=== PATIENT | male | born 1960 | race Caucasian/White ===

== ENCOUNTER 2020-05-20 18:29 | Emergency (ER) | payer OTHER, SELFPAY ==
[2020-05-20 19:01] VITALS: BP 144/85; PULSE 79; RESP 18; TEMP 36.3; O2SAT 98; BMI 25.8
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
[2020-05-20] MEDS: Acetaminophen 325 MG TABLET 975 MG PO (21:52)
--- NOTE | 2020-05-20 22:06 | PC.NURSE ---
[facility] PT TX LINE CALLED @ TYRON BLACKWELL REQUEST @ [phone] JON ANSWERS, TAKES PT INFO AND ASKS TO SPEAK WITH ROSALVA BLACKWELL TAKES OVER CALL RIGHT AWAY
--- NOTE | 2020-05-20 22:14 | PC.NURSE ---
RETURN CALL FROM JON FROM [facility] PT TX LINE @ [phone] ROSALVA TAKES OVER CALL RIGHT AWAY
[2020-05-20] MEDS: 0.9 % Sodium Chloride 1,000 ML 999 ML IVCONT (22:20)
[2020-05-20] MEDS: Lidocaine HCl 2 % MPF 5 ML VIAL 10 ML SUBCUT (22:21)
[2020-05-20] MEDS: ondansetron HCL 4 MG/2 ML VIAL IVPUSH (22:21)
[2020-05-20 22:22] VITALS: RESP 18
[2020-05-20] MEDS: Morphine Sulfate 4 MG/ML CARTRIDGE IVPUSH (22:22)
[2020-05-20 23:29] VITALS: BP 139/77; PULSE 75; RESP 14; O2SAT 98
== END 2020-05-20 23:30 | disposition short-term general hospital (02) ==
PROVIDERS: Emergency Provider Emergency Medicine
DX: S02.32XA Fracture of orbital floor, left side, initial encounter for closed fracture (principal); S02.2XXA Fracture of nasal bones, initial encounter for closed fracture; Y04.2XXA Assault by strike against or bumped into by another person, initial encounter; Y93.9 Activity, unspecified; Y92.009 Unspecified place in unspecified non-institutional (private) residence as the place of occurrence of the external cause; Y99.9 Unspecified external cause status
CPT/HCPCS: 70450; 70480; 72125; 90471; 90715; 96361; 96374; 96375; 99285; 99291; J2270; J2405

== ENCOUNTER → 2020-12-08 10:27 | Outpatient (BNVA) | payer OTHER, SELFPAY | PROVIDERS: PCP Internal Medicine; Referring Provider Internal Medicine; Visit Provider Internal Medicine Cardiovascular Disease | DX: R00.2 Palpitations (principal); R55 Syncope and collapse; I25.10 Atherosclerotic heart disease of native coronary artery without angina pectoris | CPT/HCPCS: 93005; 99212 ==

== ENCOUNTER → 2020-12-17 11:16 | Outpatient (REF) | payer OTHER, SELFPAY ==
--- NOTE | 2020-12-17 11:20 | HM_ITS ---
The patient is a 60-year-old male. REASON FOR SURGERY: Syncope and collapse. REQUESTING PROVIDER: Sharan Mariscal MD. INTERPRETATION: The patient was hooked up to cardiac event monitor from 12/17/2020 to 01/16/2021 for a total period of 30 days. FINDINGS: Baseline rhythm was normal sinus rhythm with heart rate varying from 74 beats per minute to 115 beats per minute. There were no bradyarrhythmias or tachyarrhythmias noted. The patient reported 2 events of palpitation, one correlated with sinus rhythm and the other one with sinus tachycardia. CONCLUSION: Event monitor is remarkable. 1. Normal sinus rhythm with no tachy or bradyarrhythmias. 2. Symptoms reported of palpitations, correlated with sinus rhythm. Sharan Mariscal MD NRS/MODL / [id number]
--- NOTE | 2020-12-17 11:20 | CA_ITS ---
Transthoracic Echocardiogram Patient (Last, First, Middle): Inderjit Stoner A Gender: Male Date of : 1960 Age: 60 Procedure Date: 12/17/2020 Procedure Type: Transthoracic Echocardiogram Location: OP Height: 175.26 cm Weight: 89.81 kg BSA: 2.06 m2 Heart Rate: bpm BP: 110 / 78 mmHg Field Auto Appraiser: Referring MD: Sharan Mariscal MD Symptoms: R55 - Syncope and collapse Study Quality: Fair ECG Rhythm: Sinus Conclusions: - The left ventricular systolic function is normal. The visually estimated ejection fraction is between 65-70%. - No obvious valvular pathology seen on this study. Findings Left Ventricle Normal left ventricular cavity size. There is mildly increased left ventricular wall thickness. The left ventricular systolic function is normal. The visually estimated ejection fraction is between 65-70%. There is no evidence of regional wall motion abnormalities. E/E prime ratio is <8, consistent with normal filling pressures. Evidence suggests grade I (mild) diastolic dysfunction. Right Ventricle Normal right ventricular cavity size and systolic function. Atria Both atria are normal in size. Aortic Valve There is a normal trileaflet aortic valve. There is no aortic valve stenosis. There is no aortic valve regurgitation. Isolated speck of calcium in the aortic annulus. Mitral Valve The mitral valve appears normal. There is no mitral valve regurgitation. There is no mitral valve stenosis. Pulmonic Valve The pulmonic valve was not well visualized. Tricuspid Valve Normal tricuspid valve structure. There is trace tricuspid valve regurgitation. The pulmonary artery systolic pressure is normal. Great Vessels The aortic annulus, sinuses of valsalva, asc aorta, and aortic arch are normal in size. Venous The inferior vena cava is normal in size and collapses greater than 50% with inspiration. Pericardium/Pleural There is no evidence of pericardial effusion. Prior Study Comparison No significant change compared to prior study dated: 07/10/2019. Recommendations, Care & Conclusions No obvious valvular pathology seen on this study. Measurements 2D Linear Measurements IVSd: 1.05 0.6-0.9/0.6-1.0 cm LVIDd: 4.85 3.9-5.3/4.2-5.9 cm LVIDd Index: 2.35 2.4-3.2/2.2-3.1 cm/m2 LVIDs: 3.41 2.0-3.6 cm LVPWd: 1.03 0.7-1.1 cm Ao Root: 3.70 2.1-3.5 cm LA Diam: 3.80 2.7-3.8/3.0-4.0 cm LAIDs Index: 1.84 1.5-2.3 cm/m2 LV Mass: 227.48 67-162/88-224 g LV Mass Index: 110.43 43-95/49-115 g/m2 LVOT Diam: 2.40 3.0+(-)1.3 cm Mitral Valve MV Pk E: 0.43 MV PK A: 0.72 MV Decel Time: 183.00 E/A: 0.60 E'Lateral: 8.16 E'Medial: 6.31 E/E' Med: 6.90 E/E' Lat: 5.30 PHT: 54.00 MVA PHT: 4.07 Decel [place]: 2.36 Aortic Valve AoV Pk Tc: 1.36 AoV Mn Tc: 0.91 AoV VTI: 0.23 AoV Pk Grad: 7.00 Aov Mn Grad: 4.00 DERIK Cont.VTI: 3.56 LVOT LVOT Pk Tc: 0.99 LVOT Mn Tc: 0.67 LVOT VTI: 0.18 LVOT Pk Grad: 4.00 LVOT Mn Grad: 2.00 LVOT Diam: 2.40 LVOT Area: 4.52 Diastolic Function MV Pk E: 0.43 MV Pk A: 0.72 E/A: 0.60 E'Medial: 6.31 E/E' Med: 6.90 E' Laterial: 8.16 E/E' Lat: 5.30 Right Ventricle TAPSE (mm): 17.00 TVS' Tc: 9.40 Great Vessels Aorta Ao Root-2D: 3.70 2.0-3.7 cm Ao Asc: 3.00 2.1-3.4 cm Ao Arch: 3.00 Updated in Other Vendor System with Status of Final Chin Collins MD electronically signed on 12/18/2020 11:59:49 AM with status of Final
== END ==
LOC: HO.CARD 11:16
PROVIDERS: Visit Provider Internal Medicine Cardiovascular Disease
DX: R55 Syncope and collapse (principal); R00.2 Palpitations
CPT/HCPCS: 93270; 93306

== ENCOUNTER → 2020-12-19 10:09 | Outpatient (BNVA) | payer OTHER, SELFPAY | PROVIDERS: PCP Internal Medicine; Referring Provider Internal Medicine; Visit Provider Nurse Practitioner Family | DX: Z12.11 Encounter for screening for malignant neoplasm of colon (principal); K59.01 Slow transit constipation; K21.9 Gastro-esophageal reflux disease without esophagitis; D36.9 Benign neoplasm, unspecified site | CPT/HCPCS: 99202 ==

== ENCOUNTER 2021-01-02 09:49 | Outpatient (REF) | payer OTHER, SELFPAY ==
[2021-01-02 10:54] LABS: Hematocrit 42.7 % (42-52); Mean Corpuscular HGB Conc 32.8 g/dl (31.0-36.0); Mean Corpuscular Hemoglobin 27.7 pg (27.0-33.0); Mean Corpuscular Volume 84.4 fL (80-98); Mean Platelet Volume 10.2 fL (9.4-12.4); Platelet Count 181 X10*3/uL (160-400); Red Blood Count 5.06 X10*6/uL (4.60-5.80); Red Cell Distribution Width 13.2 % (11.0-16.0); White Blood Count 4.5 X10*3/uL (4.8-10.8)
[2021-01-02 11:27] LABS: Alanine Aminotransferase 53 U/L (0-40); Albumin Level 4.3 g/dL (3.5-5.0); Alkaline Phosphatase 100 U/L (39-117); Anion Gap 13 (12-20); Aspartate Amino Transferase 17 U/L (5-37); Blood Urea Nitrogen 16 mg/dL (9-16); Calcium 9.6 mg/dL (8.4-10.2); Carbon Dioxide 24 mmol/L (22-29); Chloride 107 mmol/L (96-108); Estimated Glomerular Filt Rate > 60; Glucose Random 99 mg/dL (60-115); Potassium 4.4 mmol/L (3.3-5.1); Sodium 140 mmol/L (135-145); Total Protein 6.9 g/dL (6.5-8.0)
== END 2021-01-02 09:50 | disposition home or self-care (01) ==
LOC: HO.LAB 09:49
PROVIDERS: PCP Internal Medicine; Visit Provider Nurse Practitioner Family
DX: Z12.11 Encounter for screening for malignant neoplasm of colon (principal)
CPT/HCPCS: 36415; 80053; 85027

== ENCOUNTER 2021-01-28 09:40 | Outpatient (REF) | payer OTHER, SELFPAY ==
[2021-01-29 13:59] LABS: H Pylori Breath Test Negative (Negative)
== END 2021-01-28 09:41 | disposition home or self-care (01) ==
LOC: HO.LNP 09:40
PROVIDERS: PCP Internal Medicine; Referring Provider Internal Medicine; Visit Provider Nurse Practitioner Family
DX: K21.9 Gastro-esophageal reflux disease without esophagitis (principal); K59.01 Slow transit constipation; Z11.0 Encounter for screening for intestinal infectious diseases; Z86.010 Personal history of colon polyps
CPT/HCPCS: 83013; 99212

== ENCOUNTER 2021-02-24 12:43 | Day surgery (SDC) | payer OTHER, SELFPAY ==
[2021-02-18 10:18] VITALS: BMI 29.8
--- NOTE | 2021-02-20 10:51 | HO.ANESPROP2 ---
Documented by User: Mariella Tyler NP 02/20/21 10:56 HPI - Anesthesia Eval Consult details Narrative: 60yo M for Colonoscopy 12/2020 w/u for palpitations and syncope - MITCHEL and Echo wnl PMFSH Active Problems Active Problems: All Active Problems (Updated 12/08/20 @ 11:14 by Sharan Mariscal MD) Palpitations (Acute) Syncope (Acute) CAD (coronary artery disease) (Acute) Past Medical History Medical History BPH (benign prostatic hyperplasia) CAD (coronary artery disease) High cholesterol Pancreatitis Stomach ulcer Family History Family History Father Cancer Mother Cancer Surgical History Surgical History History of esophagogastroduodenoscopy (EGD) Hx of colonoscopy Social History Social History Alcohol intake: never Patient Tobacco Use Status: Never used Tobacco Advance Directives: Yes Advance Directives Information Provided: Yes (printed from [employer]) Advance Directives on File: Yes Advance Directives Date on File: 03/14/19 Meds Allergies Allergy/AdvReac Type Severity Reaction Status Date / Time No Known Allergies Allergy Verified 02/24/21 13:01 Home Medications Medication Instructions Recorded Confirmed Last Taken Type aspirin 81 mg tablet,delayed 81 mg PO QAM 12/08/20 02/18/21 02/23/21 08:00 History release atorvastatin 80 mg tablet 80 mg PO BEDTIME 12/08/20 02/18/21 Unknown History fluoxetine 20 mg capsule 60 mg PO QAM 12/08/20 02/18/21 Unknown History meclizine 25 mg tablet 25 mg PO TID PRN 12/08/20 02/18/21 Unknown History multivitamin-ferrous 1 tab PO DAILY 12/08/20 02/18/21 Unknown History fumarate-folic acid 18 mg-400 mcg tablet tamsulosin 0.4 mg capsule 0.8 mg PO BEDTIME 12/08/20 02/18/21 Unknown History propranolol 10 mg tablet 10 mg PO BID 12/19/20 02/18/21 Unknown History Exam Exam Date and Time: February 20, 2021 1051 Height,Weight and Vital Signs: Height 5 ft 9 in Weight 91.626 kg Pertinent Lab Results Pertinent Lab Results: Laboratory Tests 01/02/21 01/02/21 10:12 10:12 WBC 4.5 L Hgb 14.0 Hct 42.7 Plt Count 181 Sodium 140 Potassium 4.4 Chloride 107 Carbon Dioxide 24 BUN 16 Creatinine 1.05 Narrative Narrative: EKG 11/2020 normal sinus rhythm with nonspecific ST T wave changes MITCHEL 12/2020 CONCLUSION:? Event monitor is remarkable. 1. Normal sinus rhythm with no tachy or bradyarrhythmias. 2. Symptoms reported of palpitations, correlated with sinus rhythm. ECHO 12/2020 Conclusions: - The left ventricular systolic function is normal.? The visually estimated ejection fraction is between 65-70%. ? - No obvious valvular pathology seen on this study.? Assessment and Plan Assessment Anesthesia Assessment: Chart Reviewed Documented by User: Sue Stark MD 02/24/21 14:01 [facility] Past Medical History Medical History BPH (benign prostatic hyperplasia) CAD (coronary artery disease) High cholesterol Pancreatitis Stomach ulcer Family History Family History Father Cancer Mother Cancer Surgical History Surgical History History of esophagogastroduodenoscopy (EGD) Hx of colonoscopy Social History Social History Alcohol intake: never Patient Tobacco Use Status: Never used Tobacco Advance Directives: Yes Advance Directives Information Provided: Yes (printed from [employer]) Advance Directives on File: Yes Advance Directives Date on File: 03/14/19 Meds Allergies Allergy/AdvReac Type Severity Reaction Status Date / Time No Known Allergies Allergy Verified 02/24/21 13:01 Home Medications Medication Instructions Recorded Confirmed Last Taken Type aspirin 81 mg tablet,delayed 81 mg PO QAM 12/08/20 02/18/21 02/23/21 08:00 History release atorvastatin 80 mg tablet 80 mg PO BEDTIME 12/08/20 02/18/21 Unknown History fluoxetine 20 mg capsule 60 mg PO QAM 12/08/20 02/18/21 Unknown History meclizine 25 mg tablet 25 mg PO TID PRN 12/08/20 02/18/21 Unknown History multivitamin-ferrous 1 tab PO DAILY 12/08/20 02/18/21 Unknown History fumarate-folic acid 18 mg-400 mcg tablet tamsulosin 0.4 mg capsule 0.8 mg PO BEDTIME 12/08/20 02/18/21 Unknown History propranolol 10 mg tablet 10 mg PO BID 12/19/20 02/18/21 Unknown History Exam Airway Mallampati Class: II TM Dist: >3cm Neck ROM: Full Heart: RRR Lungs: CTA
[2021-02-24 13:04] VITALS: BP 126/81; PULSE 79; RESP 18; TEMP 36.7; O2SAT 97
[2021-02-24] MEDS: Lactated Ringers 1,000 ML 100 ML IVCONT (13:10)
[2021-02-24] MEDS: Sodium Phosphate,Mono-Dibasic 133 ML ENEMA PR (13:15)
--- NOTE | 2021-02-24 13:39 | MHC.SHP ---
Pre-Procedural Eval Section A Date of Service: 02/24/21 The patient is an INPATIENT: No Changes since office visit: Yes Patient answered all questions; No Cold of Flu in the past 2 weeks, No New Medical Problems and No Changes in Medication The History & Physical has been completed within 30 days and I have reviewed it.: Yes Section B Chief Complaint: reflux disease Details of Present Illness: Colon cancer screening Allergies: Allergies Allergy/AdvReac Type Severity Reaction Status Date / Time No Known Allergies Allergy Verified 02/24/21 13:01 Plan I have reviewed the history and physical and performed a pertinent physical examination on my patient. No changes have occurred unless specified.
--- NOTE | 2021-02-24 13:54 | W.PM.OPN ---
Operative Note Operative Note Date of Service: 02/24/21 Narrative: Pre-op diagnosis:?Colon cancer screening, history of colon polyps Post-op diagnosis:?other (Colon polyp, diverticulosis, hemorrhoids) Procedure:? COLONOSCOPY TILL CECUM WITH SNARE POLYPECTOMY Consent: Indications for the procedure and potential complications of bleeding, perforation, reaction to medications and missed diagnosis were discussed with the patient and informed consent was obtained. Instrument: Olympus PCF H 190 L variable stiffness pediatric colonoscope Monitoring: Vital signs and clinical assessment, intermittent blood pressure monitoring, continuous EKG monitoring, Pulse oximetry and Carbon Dioxide monitoring were done throughout the procedure. Colon withdrawl time was 28 minutes. Procedure: The patient was placed in the left lateral decubitis position and pre-procedure medications were administered. After a digital rectal examination of the ano-rectum, the video colonoscope was inserted into the rectum and advanced through the colon to the cecum. The colonoscope was slowly withdrawn in a retrograde panoramic fashion and the colon mucosa was carefully examined including a retroflexed view of the rectum. Findings and interventions are described below. Procedure Difficulty:? Colon was long and tortuous and there was some loop formation.? LLQ pressure applied to intubate the cecum Findings: Terminal Ileum: Not evaluated Cecum:? Normal Ascending Colon:? Normal Transverse Colon:? Normal Descending Colon:? Normal Sigmoid Colon:? A 10 mm sessile polyp removed with a cold snare. Mild diverticulosis Rectum:? Normal Ano-rectum:? Small internal hemorrhoids Colon preparation:? Good to fair despite copious irrigation - there was adherent stool in the cecum and right colon - no large lesions were seen. Impression and Post Procedure Diagnosis: Colonoscopy Findings: One mediun sized polyp removed Mild diverticulosis seen in the sigmoid colon Small hemorrhoids on retroflexed exam. Plan: Await pathology results Patient has an appointment on 03/11/21 in the GI Clinic with ? Toshia Perry, [employer] . Repeat Colonoscopy interval based on path results - in 3 years if polyps are adenomatous and due to fair prep. Above findings were reviewed with the patient and colon polyps handout was given in the discharge area Surgeon:?Osvaldo Olson MD Anesthesia:?MAC (Patrica Mendoza CRNA) Was an Animal Laboratory Technician used for this Procedure?:?No Animal Laboratory Technician:?Nita Mo Estimated blood loss (mL):?0 Pathology:?other (A. sigmoid polyp) Condition:?stable Disposition:?PACU
[2021-02-24 14:50] VITALS: BP 114/70; PULSE 70; RESP 16; TEMP 36.2; O2SAT 95
[2021-02-24 15:13] VITALS: BP 153/87; PULSE 54; RESP 16; TEMP 36.2; O2SAT 97
--- NOTE | 2021-02-25 09:24 | HO.POSTANES ---
Post Anesthesia Evaluation Post Anesthesia Evaluation Anesthesia: Monitored Mental Status: Awake Pain Control: Satisfactory Nausea/Vomiting: None Hydration: Adequate Anesthesia-Related Issues: No Anes. Related Issues
== END 2021-02-24 16:03 | disposition home or self-care (01) ==
PROVIDERS: PCP Internal Medicine; Visit Provider Internal Medicine Gastroenterology
PROC: 0DJD8ZZ Inspection of Lower Intestinal Tract, Via Natural or Artificial Opening Endoscopic (ICD-10-PCS; CPT 45378; principal; 2021-02-24 14:00)
DX: Z12.11 Encounter for screening for malignant neoplasm of colon (principal); Z86.010 Personal history of colon polyps; D12.5 Benign neoplasm of sigmoid colon; K57.30 Diverticulosis of large intestine without perforation or abscess without bleeding; K64.8 Other hemorrhoids; K59.00 Constipation, unspecified; K21.9 Gastro-esophageal reflux disease without esophagitis; K85.90 Acute pancreatitis without necrosis or infection, unspecified; I25.10 Atherosclerotic heart disease of native coronary artery without angina pectoris; N40.0 Benign prostatic hyperplasia without lower urinary tract symptoms; Z79.82 Long term (current) use of aspirin; Z79.899 Other long term (current) drug therapy
CPT/HCPCS: 45385; 88305

== ENCOUNTER → 2021-03-11 09:58 | Outpatient (BNVA) | payer OTHER, SELFPAY | PROVIDERS: PCP Internal Medicine; Referring Provider Internal Medicine; Visit Provider Nurse Practitioner Family | DX: K59.04 Chronic idiopathic constipation (principal); K21.9 Gastro-esophageal reflux disease without esophagitis; R13.10 Dysphagia, unspecified; D36.9 Benign neoplasm, unspecified site | CPT/HCPCS: 99212 ==

== ENCOUNTER 2021-03-20 19:33 | Emergency (ER) | payer OTHER, SELFPAY ==
--- NOTE | ~2021-03-20 | XR_ITS ---
EXAMINATION: XR SACRUM AND COCCYX CLINICAL INFORMATION: Fall. COMPARISON: Sacrum and coccyx January 19, 2018 TECHNIQUE: 2 views of the sacrum and 2 views of the coccyx were obtained. FINDINGS: No fracture of the sacrum or coccyx. Sacroiliac joints are normal. Status post fusion L4-L5. Surgical clips in the anterior to the L4-L5 disc level. XR/XR sacrum coccyx min 2V IMPRESSION: Unremarkable examination.
--- NOTE | ~2021-03-20 | XR_ITS ---
EXAMINATION: XR ANKLE, LEFT CLINICAL INFORMATION: Fall. COMPARISON: None TECHNIQUE: AP, lateral, and mortise views of the left ankle. FINDINGS: The bones and soft tissues are normal. No fracture. Alignment is anatomic. Joint spaces are maintained. No joint effusion. XR/XR ankle LT 2V IMPRESSION: Normal left ankle.
[2021-03-20 19:58] VITALS: BP 117/85; PULSE 81; RESP 20; TEMP 36.6; O2SAT 97; BMI 29.7
--- NOTE | 2021-03-20 20:24 | ED_ITS ---
HPI - Back Pain/Injury General Chief Complaint: Back Pain/Injury Stated Complaint: lower back pain Time Seen by Provider: 03/20/21 20:24 Source: patient Mode of arrival: ambulatory Limitations: no limitations History of Present Illness HPI Narrative: Old patient fell from ladder about 7 ft high 3 weeks ago landed on his tailbone and left foot complaining of pain at the tailbone when specially he moves his bowel and pain in the left ankle which is not getting better patient able to ambulate otherwise no head injury no other injuries Related Data Home Medications Medication Instructions Recorded Confirmed aspirin 81 mg tablet,delayed 81 mg PO QAM 12/08/20 02/18/21 release atorvastatin 80 mg tablet 80 mg PO BEDTIME 12/08/20 02/18/21 fluoxetine 20 mg capsule 60 mg PO QAM 12/08/20 02/18/21 meclizine 25 mg tablet 25 mg PO TID PRN 12/08/20 02/18/21 multivitamin-ferrous 1 tab PO DAILY 12/08/20 02/18/21 fumarate-folic acid 18 mg-400 mcg tablet tamsulosin 0.4 mg capsule 0.8 mg PO BEDTIME 12/08/20 02/18/21 propranolol 10 mg tablet 10 mg PO BID 12/19/20 02/18/21 Previous Rx's Medication Instructions Recorded pantoprazole 40 mg tablet,delayed 40 mg PO DAILY #30 tab 01/28/21 release docusate sodium 100 mg capsule 100 mg PO BEDTIME #30 cap 03/11/21 methylcellulose (laxative) 500 mg 500 mg PO DAILY #30 tab 03/11/21 tablet (Citrucel) sennosides 8.6 mg tablet (Natural 17.2 mg PO BEDTIME #60 tab 03/11/21 Senna Laxative) tramadol 50 mg tablet 50 mg PO Q6H PRN #20 tab 03/20/21 Allergies Allergy/AdvReac Type Severity Reaction Status Date / Time No Known Allergies Allergy Verified 03/11/21 10:02 [facility] Past Medical History Medical History BPH (benign prostatic hyperplasia) CAD (coronary artery disease) High cholesterol Pancreatitis Stomach ulcer Surgical History History of esophagogastroduodenoscopy (EGD) Hx of colonoscopy Family History Family History Father Cancer Mother Cancer Social History Social History Alcohol intake: never Patient Tobacco Use Status: Never used Tobacco Advance Directives: No Advance Directives Information Provided: No Advance Directives Date on File: 03/14/19 Physical Exam Vital Signs: Vital Signs: Last Vital Signs Temp 97.9 F 03/20/21 19:58 Pulse 81 03/20/21 19:58 Resp 20 03/20/21 19:58 BP 117/85 03/20/21 19:58 Pulse Ox 97 03/20/21 19:58 Body Mass Index 29.7 Const: General: comfortable and no acute distress HENMT: Head: Yes normocephalic and Yes atraumatic Neck: Neck: Yes full ROM, Yes supple and No tender Resp: Effort & Inspection: normal respiratory effort Auscultation: clear to auscultation bilaterally Cardio: Palpation: normal PMI Rate: regular rate Rhythm: regular rhythm Heart sounds: S1 normal heart sound present and S2 normal heart sound present GI: Inspection: Yes normal to inspection Palpation (GI): Soft to palpation, not firm and nontender Back/Spine/Pelvis: Thoracic/Lumbar Spine: straight leg raise negative bilaterally Coccyx: Coccyx tenderness present (At the coccyx tip) on direct palpation Extrem: Ankle/foot/toe images: 1. Soft tissue tenderness no swelling good range of movement Discharge Plan Discharge Clinical Impression: Coccygeal contusion Qualifiers: Encounter type: initial encounter Qualified Code(s): S30.0XXA - Contusion of lo wer back and pelvis, initial encounter Left ankle sprain Qualifiers: Encounter type: initial encounter Involved ligament of ankle: tibiofibular ligament Qualified Code(s): S93.432A - Sprain of tibiofibular ligament of left ankle, initial encounter Patient Disposition: Home, Self-Care Instructions: Contusion in Adults (ED) Additional Instructions: Use donut cushion to sit for coccygeal contusion Pain medication as advised Prescriptions: New tramadol 50 mg tablet 50 mg PO Q6H PRN (Reason: pain) Qty: 20 RF: 0 No Action jfqqilztxffa-dimi-ijfei acid 18-400 mg-mcg tablet 1 tab PO DAILY RF: 0 fluoxetine 20 mg capsule 60 mg PO QAM RF: 0 atorvastatin 80 mg tablet 80 mg PO BEDTIME RF: 0 tamsulosin 0.4 mg capsule 0.8 mg PO BEDTIME RF: 0 aspirin 81 mg tablet,delayed release (DR/EC) 81 mg PO QAM RF: 0 meclizine 25 mg tablet 25 mg PO TID PRN (Reason: dizziness) RF: 0 sennosides [Natural Senna Laxative] 8.6 mg tablet 17.2 mg PO BEDTIME Qty: 60 RF: 1 docusate sodium 100 mg capsule 100 mg PO BEDTIME Qty: 30 RF: 3 Citrucel 500 mg tablet 500 mg PO DAILY Qty: 30 RF: 2 propranolol 10 mg tablet 10 mg PO BID RF: 0 pantoprazole 40 mg tablet,delayed release (DR/EC) 40 mg PO DAILY Qty: 30 RF: 2 Interventions: ED Discharge Assessment Last Done: 03/20/21 21:26 Discharge Date/Time: 03/20/21 21:30
== END 2021-03-20 21:30 | disposition home or self-care (01) ==
PROVIDERS: Emergency Provider Internal Medicine
DX: S30.0XXA Contusion of lower back and pelvis, initial encounter (principal); S93.432A Sprain of tibiofibular ligament of left ankle, initial encounter; W11.XXXA Fall on and from ladder, initial encounter; E78.5 Hyperlipidemia, unspecified; Z79.02 Long term (current) use of antithrombotics/antiplatelets; Z79.82 Long term (current) use of aspirin; Y93.9 Activity, unspecified; Y92.9 Unspecified place or not applicable; Y99.9 Unspecified external cause status
CPT/HCPCS: 72220; 73600; 99283; 99284

== ENCOUNTER 2021-04-07 09:51 | Outpatient (REF) | payer OTHER, SELFPAY | END 2021-04-07 09:52 | disposition home or self-care (01) | LOC: HO.XRAY 09:51 | PROVIDERS: Visit Provider Nurse Practitioner Family | DX: Z13.89 Encounter for screening for other disorder (principal) ==

== ENCOUNTER 2021-04-23 09:51 | Outpatient (REF) | payer OTHER, SELFPAY ==
--- NOTE | ~2021-04-23 | FL_ITS ---
EXAMINATION: FL BARIUM SWALLOW CLINICAL INFORMATION: Dysphagia COMPARISON: None TECHNIQUE: Fluoroscopic assessment of the esophagus was performed in various upright and prone obliquities utilizing thin and thick high density barium contrast material and effervescent granules. A 13 mm barium tablet was also utilized. FINDINGS: There is normal oral bolus control and transfer. Normal posterior tilt of the epiglottis with elevation of the hyoid. No cricopharyngeal abnormality. The esophagus was normal in course, caliber, and contour. There was normal distensibility with no fixed segment of narrowing. No focal mucosal abnormality was identified. The 13 mm barium tablet was swallowed without difficulty, freely passing through the esophagus and into the stomach without delay. No significant esophageal dysmotility was observed. Contrast passed freely across the gastroesophageal junction into the stomach. No significant hiatal hernia. Minimal gastroesophageal reflux was observed. FLUOROSCOPY TIME: 1.3 minutes DOSE AREA PRODUCT: 8.954 Gy-cm2 (braxton-centimeter squared) FL/FL barium swallow IMPRESSION: Minimal gastroesophageal reflux noted. Otherwise unremarkable appearance of the esophagus.
== END 2021-04-23 09:52 | disposition home or self-care (01) ==
LOC: HO.XRAY 09:51
PROVIDERS: Visit Provider Nurse Practitioner Family
DX: R13.10 Dysphagia, unspecified (principal)
CPT/HCPCS: 74220

== ENCOUNTER → 2021-04-24 10:37 | Outpatient (BNVA) | payer OTHER, SELFPAY | PROVIDERS: Visit Provider Nurse Practitioner Family | DX: K59.04 Chronic idiopathic constipation (principal); K21.9 Gastro-esophageal reflux disease without esophagitis; R13.12 Dysphagia, oropharyngeal phase | CPT/HCPCS: 99212 ==

== ENCOUNTER → 2021-05-21 10:02 | Day surgery (SDC) | payer OTHER, SELFPAY ==
--- NOTE | 2021-05-20 12:39 | P.CONAN_ITS ---
HPI - Anesthesia Eval Consult details Narrative: Pt reported recent CP in preop. Cx'd by anesthesia with instructions to f/u with own char filter tank tender head 60yo M for Upper Endoscopy s/p Colonoscopy 02/2021 with MAC 12/2020 w/u for palpitations and syncope - [facility] and Echo wnl [facility] Active Problems Active Problems: All Active Problems (Updated 03/21/21 @ 00:01 by Background Taya) Palpitations (Acute) Syncope (Acute) CAD (coronary artery disease) (Acute) Past Medical History Medical History BPH (benign prostatic hyperplasia) CAD (coronary artery disease) High cholesterol Pancreatitis Stomach ulcer Family History Family History Father Cancer Mother Cancer Surgical History Surgical History History of esophagogastroduodenoscopy (EGD) Hx of colonoscopy Social History Social History Alcohol intake: never Patient Tobacco Use Status: Never used Tobacco Advance Directives Date on File: 03/14/19 Meds Allergies Allergy/AdvReac Type Severity Reaction Status Date / Time No Known Allergies Allergy Verified 04/24/21 10:53 Home Medications Medication Instructions Recorded Confirmed Last Taken Type aspirin 81 mg tablet,delayed 81 mg PO QAM 12/08/20 05/28/21 05/20/21 History release atorvastatin 80 mg tablet 80 mg PO BEDTIME 12/08/20 05/28/21 Unknown History fluoxetine 20 mg capsule 60 mg PO QAM 12/08/20 05/28/21 Unknown History meclizine 25 mg tablet 25 mg PO TID PRN 12/08/20 05/28/21 Unknown History multivitamin-ferrous 1 tab PO DAILY 12/08/20 05/28/21 Unknown History fumarate-folic acid 18 mg-400 mcg tablet tamsulosin 0.4 mg capsule 0.8 mg PO BEDTIME 12/08/20 05/28/21 Unknown History propranolol 10 mg tablet 10 mg PO BID 12/19/20 05/28/21 Unknown History docusate sodium 100 mg capsule 100 mg PO DAILY 05/28/21 05/28/21 Unknown History plecanatide 3 mg tablet (Trulance) 3 mg PO DAILY tab 05/28/21 05/28/21 Unknown History Exam Exam Date and Time: May 20, 2021 1239 Pertinent Lab Results Pertinent Lab Results: Laboratory Tests ? 01/02/21 01/02/21 ? 10:12 10:12 WBC ?4.5 L ? Hgb ?14.0 ? Hct ?42.7 ? Plt Count ?181 ? Sodium ? ?140 Potassium ? ?4.4 Chloride ? ?107 Carbon Dioxide ? ?24 BUN ? ?16 Creatinine ? ?1.05 Narrative Narrative: EKG 11/2020 normal sinus rhythm with nonspecific ST T wave changes MITCHEL 12/2020 CONCLUSION:? Event monitor is remarkable. 1. Normal sinus rhythm with no tachy or bradyarrhythmias. 2. Symptoms reported of palpitations, correlated with sinus rhythm. ECHO 12/2020 Conclusions: - The left ventricular systolic function is normal.? The visually estimated ejection fraction is between 65-70%. ? - No obvious valvular pathology seen on this study.? Airway Assessment and Plan Assessment Anesthesia Assessment: Chart Reviewed
--- NOTE | 2021-05-21 10:14 | MHC.SHP ---
Pre-Procedural Eval Section A Date of Service: 05/21/21 Section B Chief Complaint: Dysphagia Present Medications: see Short Stay Collaborative assessment Medical History: Significant History (BPH (benign prostatic hyperplasia) CAD (coronary artery disease) High cholesterol Pancreatitis Stomach ulcer) Allergies: Allergies Allergy/AdvReac Type Severity Reaction Status Date / Time No Known Allergies Allergy Verified 04/24/21 10:53 Review of Systems Sugical H&P ROS: Negative: Constitution, Cardiovascular, Respiratory, Neurological, Psychiatric, Hem-Onc, Allergic/Immunologic, Gastrointestinal, Genitourinary, Musculoskeletal, Integumentary, Endocrine and Eyes/Ears/Nose/Throat Exam Surgical H&P Exam: Normal: HEENT, Normal: Heart, Normal: Lungs, Normal: Extremities, Normal: Abdomen, Normal: Skin and Normal: Neurological Plan Diagnosis/Plan: Unchanged I have reviewed the history and physical and performed a pertinent physical examination on my patient. No changes have occurred unless specified.
[2021-05-21 10:32] VITALS: BP 129/71; PULSE 66; RESP 16; TEMP 36.3; O2SAT 97; BMI 29.5
== END ==
PROVIDERS: Visit Provider Internal Medicine Gastroenterology
DX: R13.10 Dysphagia, unspecified (principal); Z53.09 Procedure and treatment not carried out because of other contraindication; R07.9 Chest pain, unspecified; I25.10 Atherosclerotic heart disease of native coronary artery without angina pectoris; K21.9 Gastro-esophageal reflux disease without esophagitis

== ENCOUNTER → 2021-05-28 14:27 | Outpatient (BNVA) | payer OTHER, SELFPAY | PROVIDERS: Visit Provider Internal Medicine Cardiovascular Disease | DX: Z01.810 Encounter for preprocedural cardiovascular examination (principal); I25.10 Atherosclerotic heart disease of native coronary artery without angina pectoris; R55 Syncope and collapse | CPT/HCPCS: 93005; 99212 ==

== ENCOUNTER 2021-06-08 13:52 | Outpatient (REF) | payer OTHER, SELFPAY ==
--- NOTE | ~2021-06-08 | XR_ITS ---
EXAMINATION: LEFT FOOT, LEFT ANKLE AND LEFT TIBIA AND FIBULA. CLINICAL INFORMATION: Pain. COMPARISON: None TECHNIQUE: 3 views left foot. 2 views left ankle and 2 views left tibia and fibula. FINDINGS: LEFT TIBIA AND FIBULA: There is no visible acute fracture or bony abnormality. The soft tissues are normal. LEFT ANKLE: The ankle mortise and subtalar joints are normal. A small retrocalcaneal heel enthesophyte is seen. The soft tissues are normal. LEFT FOOT: There is no visible acute fracture, dislocation or subluxation seen. The soft tissues are normal. XR/XR foot LT min 3V IMPRESSION: Small retrocalcaneal enthesophyte. No visible acute fracture, dislocation or subluxation seen. Unremarkable left tibia and fibula and left foot.
--- NOTE | ~2021-06-08 | XR_ITS ---
EXAMINATION: LEFT FOOT, LEFT ANKLE AND LEFT TIBIA AND FIBULA. CLINICAL INFORMATION: Pain. COMPARISON: None TECHNIQUE: 3 views left foot. 2 views left ankle and 2 views left tibia and fibula. FINDINGS: LEFT TIBIA AND FIBULA: There is no visible acute fracture or bony abnormality. The soft tissues are normal. LEFT ANKLE: The ankle mortise and subtalar joints are normal. A small retrocalcaneal heel enthesophyte is seen. The soft tissues are normal. LEFT FOOT: There is no visible acute fracture, dislocation or subluxation seen. The soft tissues are normal. XR/XR ankle LT 2V IMPRESSION: Small retrocalcaneal enthesophyte. No visible acute fracture, dislocation or subluxation seen. Unremarkable left tibia and fibula and left foot.
--- NOTE | ~2021-06-08 | XR_ITS ---
EXAMINATION: LEFT FOOT, LEFT ANKLE AND LEFT TIBIA AND FIBULA. CLINICAL INFORMATION: Pain. COMPARISON: None TECHNIQUE: 3 views left foot. 2 views left ankle and 2 views left tibia and fibula. FINDINGS: LEFT TIBIA AND FIBULA: There is no visible acute fracture or bony abnormality. The soft tissues are normal. LEFT ANKLE: The ankle mortise and subtalar joints are normal. A small retrocalcaneal heel enthesophyte is seen. The soft tissues are normal. LEFT FOOT: There is no visible acute fracture, dislocation or subluxation seen. The soft tissues are normal. XR/XR tibia fibula LT 2V IMPRESSION: Small retrocalcaneal enthesophyte. No visible acute fracture, dislocation or subluxation seen. Unremarkable left tibia and fibula and left foot.
== END 2021-06-08 13:53 | disposition home or self-care (01) ==
LOC: HO.XRAY 13:52
PROVIDERS: PCP Internal Medicine; Visit Provider Internal Medicine
DX: M25.572 Pain in left ankle and joints of left foot (principal)
CPT/HCPCS: 73590; 73600; 73630

== ENCOUNTER → 2021-06-23 09:05 | Outpatient (BNVA) | payer OTHER, SELFPAY | PROVIDERS: PCP Internal Medicine; Visit Provider Physician Assistant | DX: S90.02XA Contusion of left ankle, initial encounter (principal) | CPT/HCPCS: 99202 ==

== ENCOUNTER 2021-07-14 09:44 | Day surgery (SDC) | payer OTHER, SELFPAY ==
[2021-07-08 15:30] VITALS: BMI 29.2
--- NOTE | 2021-07-13 12:03 | P.CONAN_ITS ---
Documented by User: Mariella Tyler NP 07/13/21 12:05 HPI - Anesthesia Eval Consult details Narrative: 61yo M for Upper Endoscopy 05/20/21 Pt reported recent CP in preop. Cx'd by anesthesia with instructions to f/u with own supervisor lamp shades. Seen by Dr Mariscal and optimized per 05/28/21 OV note s/p Colonoscopy 02/2021 with MAC 12/2020 w/u for palpitations and syncope - MITCHEL and Echo wnl [facility] Active Problems Active Problems: All Active Problems (Updated 06/23/21 @ 09:57 by Marta Suárez PA-C) Palpitations (Acute) Syncope (Acute) Contusion of left ankle (Acute) CAD (coronary artery disease) (Acute) Past Medical History Medical History BPH (benign prostatic hyperplasia) CAD (coronary artery disease) High cholesterol Pancreatitis Stomach ulcer Family History Family History Father Cancer Mother Cancer Surgical History Surgical History History of esophagogastroduodenoscopy (EGD) Hx of colonoscopy Social History Social History Alcohol intake: never Patient Tobacco Use Status: Never used Tobacco Use of substances other than those prescribed or required for medical reasons: No Advance Directives: No Advance Directives Information Provided: Yes Advance Directives Date on File: 03/14/19 Recently lost weight without trying: No 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 Meds Allergies Allergy/AdvReac Type Severity Reaction Status Date / Time No Known Allergies Allergy Verified 06/23/21 09:07 Home Medications Medication Instructions Recorded Confirmed Last Taken Type aspirin 81 mg tablet,delayed 81 mg PO QAM 12/08/20 05/28/21 05/20/21 History release atorvastatin 80 mg tablet 80 mg PO BEDTIME 12/08/20 05/28/21 Unknown History fluoxetine 20 mg capsule 60 mg PO QAM 12/08/20 05/28/21 Unknown History meclizine 25 mg tablet 25 mg PO TID PRN 12/08/20 05/28/21 Unknown History multivitamin-ferrous 1 tab PO DAILY 12/08/20 05/28/21 Unknown History fumarate-folic acid 18 mg-400 mcg tablet tamsulosin 0.4 mg capsule 0.8 mg PO BEDTIME 12/08/20 05/28/21 Unknown History propranolol 10 mg tablet 10 mg PO BID 12/19/20 05/28/21 Unknown History plecanatide 3 mg tablet (Trulance) 3 mg PO DAILY tab 05/28/21 05/28/21 Unknown History Exam Exam Date and Time: July 13, 2021 1203 Height,Weight and Vital Signs: Height 5 ft 9 in Weight 90 kg Pertinent Lab Results Pertinent Lab Results: Laboratory Tests ?? 01/02/21? 01/02/21 ?? 10:12? 10:12 WBC? ?4.5 L? ? Hgb? ?14.0? ? Hct? ?42.7? ? Plt Count? ?181? ? Sodium?140 Potassium?4.4 Chloride?107 Carbon Dioxide?24 BUN?16 Creatinine?1.05 Narrative Narrative: EKG 05/2021 normal sinus rhythm with nonspecific T-wave changes MITCHEL 12/2020 CONCLUSION:? Event monitor is remarkable. 1. Normal sinus rhythm with no tachy or bradyarrhythmias. 2. Symptoms reported of palpitations, correlated with sinus rhythm. ECHO 12/2020 Conclusions: - The left ventricular systolic function is normal.? The visually estimated ejection fraction is between 65-70%. ? - No obvious valvular pathology seen on this study.? Assessment and Plan Assessment Anesthesia Assessment: Chart Reviewed Documented by User: Sue Stark MD 07/14/21 11:55 [facility] Past Medical History Medical History BPH (benign prostatic hyperplasia) CAD (coronary artery disease) High cholesterol Pancreatitis Stomach ulcer Functional capacity: independent ambulation Family History Family History Father Cancer Mother Cancer Family history of problems with anesthesia: No Surgical History Surgical History History of esophagogastroduodenoscopy (EGD) Hx of colonoscopy History of Problems with Anesthesia: No Social History Social History Alcohol intake: never Patient Tobacco Use Status: Never used Tobacco Use of substances other than those prescribed or required for medical reasons: No Advance Directives: No Advance Directives Information Provided: Yes Advance Directives Date on File: 03/14/19 Recently lost weight without trying: No 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 Meds Allergies Allergy/AdvReac Type Severity Reaction Status Date / Time No Known Allergies Allergy Verified 06/23/21 09:07 Home Medications Medication Instructions Recorded Confirmed Last Taken Type aspirin 81 mg tablet,delayed 81 mg PO QAM 12/08/20 05/28/21 05/20/21 History release atorvastatin 80 mg tablet 80 mg PO BEDTIME 12/08/20 05/28/21 Unknown History fluoxetine 20 mg capsule 60 mg PO QAM 12/08/20 05/28/21 Unknown History meclizine 25 mg tablet 25 mg PO TID PRN 12/08/20 05/28/21 Unknown History multivitamin-ferrous 1 tab PO DAILY 12/08/20 05/28/21 Unknown History fumarate-folic acid 18 mg-400 mcg tablet tamsulosin 0.4 mg capsule 0.8 mg PO BEDTIME 12/08/20 05/28/21 Unknown History propranolol 10 mg tablet 10 mg PO BID 12/19/20 05/28/21 Unknown History plecanatide 3 mg tablet (Trulance) 3 mg PO DAILY tab 05/28/21 05/28/21 Unknown History Exam Airway Mallampati Class: II TM Dist: >3cm Neck ROM: Full Denture: Upper Heart: RRR Lungs: CTA Assessment and Plan Final Anesthetic Review Family History of Problems with Anesthesia: No History of Problems with Anesthesia: No ASA Class: II Final Preanesthetic Review: No Changes in Pt Med Stat, Meds/Allgs Chart Reviewed, Consent Obtained/Reviewed and Anes Risks/Benef Reviewed Patient Risk: Low Procedure Risk: Low Anesthetic Plan Anesthetic Plan: MAC: Disposition: Standard PACU
[2021-07-14 09:53] VITALS: BP 130/84; PULSE 68; RESP 17; TEMP 36.6; O2SAT 98; BMI 29.5
[2021-07-14] MEDS: Lactated Ringers 1,000 ML 100 ML IVCONT (10:12)
--- NOTE | 2021-07-14 11:26 | MHC.SHP ---
Pre-Procedural Eval Section A Date of Service: 07/14/21 Section B Chief Complaint: Dysphagia, GERD Details of Present Illness: GERD, dysphagia Relevant Family History (Specify if Yes): No Relevant Social History: None Present Medications: see Short Stay Collaborative assessment Medical History: Significant History (BPH (benign prostatic hyperplasia) CAD (coronary artery disease) High cholesterol Pancreatitis Stomach ulcer) History of Previous Operations: Relevant previous surgery/procedure and date(s) (History of esophagogastroduodenoscopy (EGD) Hx of colonoscopy) Allergies: Allergies Allergy/AdvReac Type Severity Reaction Status Date / Time No Known Allergies Allergy Verified 06/23/21 09:07 Review of Systems Sugical H&P ROS: Negative: Constitution, Cardiovascular and Respiratory and Yes, Specify: Gastrointestinal (dysphagia) Exam Surgical H&P Exam: Normal: Heart, Normal: Lungs, Normal: Extremities and Normal: Abdomen Plan Diagnosis/Plan: Unchanged I have reviewed the history and physical and performed a pertinent physical examination on my patient. No changes have occurred unless specified.
--- NOTE | 2021-07-14 11:33 | P.OP_ITS ---
Operative Note Operative Note Date of Service: 07/14/21 Narrative: Pre-op diagnosis: Dysphagia, GERD 05/05 Barium swallow showed: Minimal gastroesophageal reflux noted. Otherwise unremarkable appearance of the esophagus. Post-op diagnosis:?other (GERD, dysphagia, gastritis) Procedure: FLEXIBLE TRANSORAL UPPER GASTROINTESTINAL ENDOSCOPY WITH BIOPSIES AND ESOPHAGEAL BALLOON DILATION Consent:?Indications for the procedure and potential complications of bleeding, perforation, reaction to medications and missed diagnosis were discussed with the patient and informed consent was obtained. Instrument:?Olympus GIF H 190 mid size upper endoscope Monitoring: Vital signs and clinical assessment, continuous EKG monitoring, Pulse oximetry, Carbon Dioxide monitoring and blood pressure monitoring were done throughout the procedure. Procedure:?The patient was placed in the left lateral decubitis position and pre-procedure medications were administered and a bite block was placed. The endoscope was inserted into the mouth and advanced under direct vision to the third part of duodenum. A careful inspection was made as the upper endoscope was withdrawn including a retroflexed examination of the proximal stomach; Findings and interventions are described below. Findings: Larynx:? Normal Esophagus:? Tortuous esophagus with increased tertiary contractions without stricture or ring. GE junction at 36 cms. No esophagitis or Shaver's. Empiric balloon dilation with a 19 mm (57 F) CRE balloon for 60 seconds x 1 Stomach: Moderate diffuse gastric erythema with nodular appearing mucosa in the body of stomach. Biopsies were obtained. ? A few 2-3 mm antral erosions Grade 2 flap valve on retroflexed examination of the cardia. Duodenum: Normal bulb and descending duodenum Intervention: Biopsies and esophageal balloon dilation as noted above Impression and Post Procedure Diagnosis: Endoscopy Findings: ESOPHAGUS: Tortuous esophagus with increased tertiary contractions without stricture or ring. GE junction at 36 cms. No esophagitis or Shaver's. Empiric balloon dilation with a 19 mm (57 F) CRE balloon for 60 seconds x 1 STOMACH: Moderate diffuse gastric erythema with nodular appearing mucosa in the body of stomach. Biopsies were obtained. ? A few 2-3 mm antral erosions. Plan: Await pathology results Patient has an appointment on 07/28/21 in the [facility] with Toshia Perry FNP- [place] . Above findings were reviewed with the patient and GERD and Gastritis handouts were given in the discharge area Surgeon: Osvaldo Olson MD Anesthesia:?MAC (Dr Warner) Was an Agricultural Agent used for this Procedure?:?Yes Agricultural Agent:?Nita Mo Estimated blood loss (mL):?0 Pathology:?other ( A. gastric antrum bxs, R/O H. pylori? B. gastric body bxs) Condition:?stable Disposition:?PACU
[2021-07-14 12:06] VITALS: BP 79/46; PULSE 77; RESP 16; TEMP 36.4; O2SAT 93
[2021-07-14 12:09] VITALS: BP 85/39; PULSE 78; RESP 18; O2SAT 98
[2021-07-14 12:14] VITALS: BP 89/60; PULSE 75; RESP 18; O2SAT 98
[2021-07-14 12:19] VITALS: BP 99/57; PULSE 70; RESP 18; TEMP 37.2; O2SAT 95
--- NOTE | 2021-07-14 12:26 | HO.POSTANES ---
Post Anesthesia Evaluation Post Anesthesia Evaluation Vital Signs: Vital Signs Temp Pulse Resp BP Pulse Ox 07/14/21 12:19 98.9 F 70 18 99/57 L 95 07/14/21 12:14 75 18 89/60 L 98 07/14/21 12:09 78 18 85/39 L 98 07/14/21 12:06 97.5 F 77 16 79/46 L 93 07/14/21 09:53 97.8 F 68 17 130/84 98 Anesthesia: Monitored Mental Status: Awake Pain Control: Satisfactory Nausea/Vomiting: None Hydration: Adequate Anesthesia-Related Issues: No Anes. Related Issues
[2021-07-14 12:35] VITALS: BP 118/73; PULSE 68; RESP 18; TEMP 36.8; O2SAT 96
== END 2021-07-14 13:23 | disposition home or self-care (01) ==
PROVIDERS: PCP Internal Medicine; Visit Provider Internal Medicine Gastroenterology
PROC: 0DJ08ZZ Inspection of Upper Intestinal Tract, Via Natural or Artificial Opening Endoscopic (ICD-10-PCS; CPT 43235; principal; 2021-07-14 11:00)
DX: R13.12 Dysphagia, oropharyngeal phase (principal); K22.89 Other specified disease of esophagus; K21.9 Gastro-esophageal reflux disease without esophagitis; K29.70 Gastritis, unspecified, without bleeding; K85.90 Acute pancreatitis without necrosis or infection, unspecified; Z87.11 Personal history of peptic ulcer disease; I25.10 Atherosclerotic heart disease of native coronary artery without angina pectoris; E78.00 Pure hypercholesterolemia, unspecified; N40.0 Benign prostatic hyperplasia without lower urinary tract symptoms; Z79.899 Other long term (current) drug therapy
CPT/HCPCS: 43249; 43239; 88305; 88342; C1726

== ENCOUNTER → 2021-07-28 14:30 | Outpatient (BNVA) | payer OTHER, SELFPAY | PROVIDERS: PCP Internal Medicine; Referring Provider Internal Medicine; Visit Provider Nurse Practitioner Family | DX: K59.04 Chronic idiopathic constipation (principal); K21.9 Gastro-esophageal reflux disease without esophagitis; R10.32 Left lower quadrant pain | CPT/HCPCS: 99212 ==

== ENCOUNTER 2021-10-18 13:27 | Emergency (ER) | payer OTHER, SELFPAY ==
[2021-10-18 13:56] VITALS: BP 143/91; PULSE 68; RESP 18; TEMP 36.7; O2SAT 98; BMI 29.0
[2021-10-18 14:25] VITALS: BP 145/83; PULSE 66; RESP 18; O2SAT 99
[2021-10-18 14:50] LABS: MANUAL DIFF FLAG NO
[2021-10-18 14:53] LABS: Basophils Percent Auto 0.2 % (0-2); Eosinophils Absolute Auto 0.1 X10*3/uL (0.0-0.4); Eosinophils Percent Auto 2.3 % (0-4); Hematocrit 42.1 % (42.0-52.0); Hemoglobin 13.5 g/dl (14.0-18.0); Imm Gran Abs Auto 0.01 X10*3/uL (0.00-0.03); Imm Gran Pct Auto 0.2 % (0.0-0.4); Lymphocytes Absolute Auto 1.6 X10*3/uL (1.2-4.9); Lymphocytes Percent Auto 33.4 % (20-40); Mean Corpuscular HGB Conc 32.1 g/dl (31.0-36.0); Mean Corpuscular Hemoglobin 27.1 pg (27.0-33.0); Mean Corpuscular Volume 84.5 fL (80.0-98.0); Mean Platelet Volume 9.8 fL (9.4-12.4); Monocytes Absolute Auto 0.6 X10*3/uL (0.1-1.2); Monocytes Percent Auto 11.5 % (2-11); Neutrophils Absolute Auto 2.5 x10*3/uL (2.0-8.3); Neutrophils Percent Auto 52.4 % (45-73); Platelet Count 165 X10*3/uL (160-400); Red Blood Count 4.98 X10*6/uL (4.60-5.80); Red Cell Distribution Width 13.5 % (11.0-16.0); White Blood Count 4.9 X10*3/uL (4.8-10.8)
[2021-10-18 14:54] LABS: Appearance Urine CLEAR; Color Urine YELLOW; Glucose Urine UA NEG (NEG); Leukocyte Esterase Urine NEG (NEG); Nitrite Urine NEG (NEG); PH 5.5 (5.0-8.0); Specific Gravity - Urine 1.025 (1.005-1.025); Urine Blood NEG (NEG); Urine Ketones NEG (NEG); Urine Protein NEG (NEG-TRACE)
[2021-10-18 15:07] LABS: Alanine Aminotransferase 36 U/L (0-40); Alkaline Phosphatase 105 U/L (39-117); Anion Gap 12 (12-20); Aspartate Amino Transferase 15 U/L (5-37); Bilirubin Total 0.3 mg/dL (0.0-1.0); Blood Urea Nitrogen 14 mg/dL (9-16); Calcium 9.1 mg/dL (8.4-10.2); Carbon Dioxide 26 mmol/L (22-29); Chloride 107 mmol/L (96-108); Estimated Glomerular Filt Rate > 60; Glucose Random 89 mg/dL (60-115); Potassium 4.2 mmol/L (3.3-5.1); Sodium 141 mmol/L (135-145); Total Protein 6.7 g/dL (6.5-8.0)
--- NOTE | 2021-10-18 16:13 | ED.GENADULT ---
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 Patient denies any dysuria. He has not followed up with any provider for further evaluation. He has been to [facility] as well as [facility] for evaluation. Related Data Home Medications Medication Instructions Recorded Confirmed aspirin 81 mg tablet,delayed 81 mg PO QAM 12/08/20 07/28/21 release atorvastatin 80 mg tablet 80 mg PO BEDTIME 12/08/20 07/28/21 fluoxetine 20 mg capsule 60 mg PO QAM 12/08/20 07/28/21 multivitamin-ferrous 1 tab PO DAILY 12/08/20 07/28/21 fumarate-folic acid 18 mg-400 mcg tablet tamsulosin 0.4 mg capsule 0.8 mg PO BEDTIME 12/08/20 07/28/21 propranolol 10 mg tablet 10 mg PO BID 12/19/20 07/28/21 levetiracetam 250 mg tablet 250 mg PO BID 07/28/21 07/28/21 multivitamin-ferrous 1 tab PO DAILY 07/28/21 07/28/21 fumarate-folic acid 18 mg-400 mcg tablet (Certavite-Antioxidant) Previous Rx's Medication Instructions Recorded pantoprazole 40 mg tablet,delayed 40 mg PO BID 30 Days #60 tab 07/07/21 release famotidine 40 mg tablet 40 mg PO BEDTIME #30 tab 07/28/21 plecanatide 3 mg tablet (Trulance) 3 mg PO DAILY #30 tab 07/28/21 methylcellulose (laxative) 500 mg 500 mg PO DAILY #30 tab 09/02/21 tablet (Citrucel) Allergies Allergy/AdvReac Type Severity Reaction Status Date / Time No Known Allergies Allergy Verified 10/18/21 13:56 Review of Systems Review of Systems: Pertinent positives and negatives as stated in HPI 10 point review of systems is otherwise negative. [facility] Past Medical History Source: nursing notes reviewed Medical History BPH (benign prostatic hyperplasia) CAD (coronary artery disease) High cholesterol Pancreatitis Stomach ulcer Surgical History History of esophagogastroduodenoscopy (EGD) Hx of colonoscopy Family History Family History Father Cancer Mother Cancer Social History Social History Alcohol intake: never Patient Tobacco Use Status: Never used Tobacco Advance Directives: Yes Advance Directives on File: Yes Advance Directives Date on File: 02/25/21 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 Physical Exam ED Vital Signs: Vital Signs - 24 hr 10/18/21 13:56 10/18/21 14:25 Temperature 98.0 F Pulse Rate 68 66 Respiratory Rate 18 18 Blood Pressure 143/91 H 145/83 H Pulse Oximetry 98 99 BMI result Body Mass Index 29.0 VITAL SIGNS: Reviewed. GENERAL: Well developed, well nourished, in no acute distress. HEAD: Normocephalic/atraumatic EYES: PERRLA, EOMI EARS: Ext canals without abnormality OROPHARYNX: no oral lesions noted, posterior pharynx clear LUNGS: Normal breath sounds. No adventitious sounds or accessory muscle use. SpO2<98> CARDIOVASCULAR: Regular rate and rhythm without noted murmurs ABDOMEN: Soft, non-tender, non-distended with bowel sounds, midline lower abdomen scar consistent with patient's previous surgery on lumbar spine. 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 Strength and sensation to light touch were grossly intact x 4. Course Course Course Narrative: 61-year-old male with history and clinical presentation suggestive of possible ventral hernia without obstructive symptoms. On review of all investigations there are no acute findings to better explain patient's findings and he was strongly encouraged to follow-up with his primary care provider and was informed all results. As he does not currently have a herniation it was explained to him that any imaging studies would likely be negative, but he would be provided with a referral to follow-up with general surgery. Medical Decision Making Lab Data Result diagrams: 10/18/21 14:46 10/18/21 14:46 Labs: Lab Results 10/18/21 10/18/21 10/18/21 Range/Units 14:46 14:46 14:46 WBC 4.9 (4.8-10.8) X10*3/uL RBC 4.98 (4.60-5.80) X10*6/uL Hgb 13.5 L (14.0-18.0) g/dl Hct 42.1 (42.0-52.0) % MCV 84.5 (80.0-98.0) fL MCH 27.1 (27.0-33.0) pg MCHC 32.1 (31.0-36.0) g/dl RDW 13.5 (11.0-16.0) % Plt Count 165 (160-400) X10*3/uL MPV 9.8 (9.4-12.4) fL Immature Gran % (Auto) 0.2 (0.0-0.4) % Neut % (Auto) 52.4 (45-73) % Lymph % (Auto) 33.4 (20-40) % Sandoval % (Auto) 11.5 H (2-11) % Eos % (Auto) 2.3 (0-4) % Baso % (Auto) 0.2 (0-2) % Lymph # (Auto) 1.6 (1.2-4.9) X10*3/uL Sandoval # (Auto) 0.6 (0.1-1.2) X10*3/uL Eos # (Auto) 0.1 (0.0-0.4) X10*3/uL Baso # (Auto) 0.0 (0.0-0.2) X10*3/uL Abs Immat Gran (auto) 0.01 (0.00-0.03) X10*3/uL Absolute Neuts (auto) 2.5 (2.0-8.3) x10*3/uL Absolute Nucleated RBC 0.000 (0.0-0.012) X10*3/uL Nucleated RBC % (auto) 0.0 (0.0-0.2) /100WBC Sodium 141 (135-145) mmol/L Potassium 4.2 (3.3-5.1) mmol/L Chloride 107 (96-108) mmol/L Carbon Dioxide 26 (22-29) mmol/L Anion Gap 12 (12-20) BUN 14 (9-16) mg/dL Creatinine 0.93 (0.5-1.4) mg/dL Estim Creat Clear Calc 92.0 Estimated GFR > 60 Random Glucose 89 (60-115) mg/dL Calcium 9.1 (8.4-10.2) mg/dL Total Bilirubin 0.3 (0.0-1.0) mg/dL AST 15 (5-37) U/L ALT 36 (0-40) U/L Alkaline Phosphatase 105 (39-117) U/L Total Protein 6.7 (6.5-8.0) g/dL Albumin 4.0 (3.5-5.0) g/dL Urine Color YELLOW Urine Appearance CLEAR Urine pH 5.5 (5.0-8.0) Ur Specific Power 1.025 (1.005-1.025) Urine Protein NEG (NEG-TRACE) MG/DL Urine Glucose (UA) NEG (NEG) MG/DL Urine Ketones NEG (NEG) MG/DL Urine Blood NEG (NEG) Urine Nitrite NEG (NEG) Ur Leukocyte Esterase NEG (NEG) Discharge Plan Discharge Clinical Impression: Ventral hernia Patient Disposition: Home, Self-Care Instructions: Ventral Hernia (ED) Additional Instructions: 1. Reanudar todos los medicamentos caseros seg?n lo prescrito. 2. Recomendar Tylenol/ibuprofeno de venta quintin seg?n sea necesario para controlar el dolor. 3. Se le terrazas proporcionado sameer derivaci?n para seguimiento con cirug?a general para sameer evaluaci?n adicional de la hernia. 4. No dude en regresar a la irvin de emergencias si experimenta persistencia de la hernia, especialmente si se asocia con n?useas, v?mitos e incapacidad para expulsar gases. Prescriptions: No Action pantoprazole 40 mg tablet,delayed release (DR/EC) 40 mg PO BID 30 Days Qty: 60 3RF Citrucel 500 mg tablet 500 mg PO DAILY Qty: 30 2RF Rx Instructions: take it with full glass of water vlxraqveieor-nrai-siqdg acid 18-400 mg-mcg tablet 1 tab PO DAILY 0RF fluoxetine 20 mg capsule 60 mg PO QAM 0RF atorvastatin 80 mg tablet 80 mg PO BEDTIME 0RF tamsulosin 0.4 mg capsule 0.8 mg PO BEDTIME 0RF aspirin 81 mg tablet,delayed release (DR/EC) 81 mg PO QAM 0RF propranolol 10 mg tablet 10 mg PO BID 0RF levetiracetam 250 mg tablet 250 mg PO BID 0RF Certavite-Antioxidant 18-400 mg-mcg tablet 1 tab PO DAILY 0RF Trulance 3 mg tablet 3 mg PO DAILY Qty: 30 3RF famotidine 40 mg tablet 40 mg PO BEDTIME Qty: 30 3RF Referrals: Funmi Easton MD [Primary Care Provider] - Jose Alberto Cho MD [Physician] - (Patient presents with what seems to be ventral hernia that is easily reducible no obstructive symptoms, does not appear to be inguinal in origin.) Print Language: Bhutanese
[2021-10-18 16:26] VITALS: BP 129/75; PULSE 67; RESP 18; TEMP 36.6; O2SAT 98
== END 2021-10-18 16:29 | disposition home or self-care (01) ==
PROVIDERS: Emergency Provider Student in an Organized Health Care Education/Training Program; PCP Internal Medicine
DX: K43.9 Ventral hernia without obstruction or gangrene (principal); R10.9 Unspecified abdominal pain; E78.5 Hyperlipidemia, unspecified; Z79.82 Long term (current) use of aspirin; Z79.02 Long term (current) use of antithrombotics/antiplatelets; Z79.899 Other long term (current) drug therapy
CPT/HCPCS: 36415; 80053; 81003; 85025; 99283; 99284

== ENCOUNTER → 2021-10-27 13:38 | Outpatient (BNVA) | payer OTHER, SELFPAY | PROVIDERS: PCP Internal Medicine; Referring Provider Internal Medicine; Visit Provider Surgery | DX: R10.32 Left lower quadrant pain (principal); N40.0 Benign prostatic hyperplasia without lower urinary tract symptoms; E78.00 Pure hypercholesterolemia, unspecified; I25.10 Atherosclerotic heart disease of native coronary artery without angina pectoris | CPT/HCPCS: 99202 ==

== ENCOUNTER 2021-11-11 08:24 | Outpatient (REF) | payer OTHER, SELFPAY ==
--- NOTE | ~2021-11-11 | CT_ITS ---
EXAMINATION: CT ABDOMEN AND PELVIS WITH CONTRAST CLINICAL INFORMATION: Left lower quadrant pain. COMPARISON: CT brain 03/12/2018. TECHNIQUE: Multidetector volumetric images were obtained from the superior aspect of the liver through the pubic symphysis following administration 85 mL of Omnipaque 350 intravenous contrast. Sagittal and coronal reformatted images were obtained on the technologist's workstation. Oral contrast: No. This CT examination was performed using dose optimization techniques as appropriate, variously including the following: *Automated exposure control *Adjustment of mA and/or kV according to patient size (this includes techniques or standardized protocols for targeted exams where dose is matched to indication/reason for exam; i.e. extremities or head) *Use of iterative reconstruction technique DLP: 454 mGy-cm FINDINGS: LUNG BASES: There is bibasilar dependent atelectasis. The heart size is normal. LIVER, GALLBLADDER, AND BILIARY TREE: The liver is normal in size, shape, and attenuation. No focal hepatic lesion or biliary ductal dilatation is present. The gallbladder is unremarkable with no evidence of radiopaque gallstones, gallbladder wall thickening, or obvious pericholecystic inflammatory changes. PANCREAS: Unremarkable. SPLEEN: Unremarkable. ADRENAL GLANDS: Unremarkable. KIDNEYS AND URETERS: The kidneys are normal in size, shape, and attenuation. No hydronephrosis, hydroureter, or calculi seen. No perinephric stranding. BLADDER: Unremarkable. GASTROINTESTINAL TRACT: There is scattered oral contrast, stool throughout the colon without any significant distention. The appendix is not visualized. Nonspecific mild mural thickening involving the distal ileum is noted. The rest of the small bowel loops are normal caliber. No free air or free fluid is seen. ABDOMINAL WALL: No significant hernia is appreciated. LYMPH NODES: Normal. VASCULAR: Unremarkable. PELVIC VISCERA: Unremarkable. OSSEOUS STRUCTURES: No lytic or sclerotic process is seen. There is a disc prosthesis at the L4-L5 disc level for disc fusion. CT/CT abdomen pelvis w con IMPRESSION: No acute intra-abdominal process is seen. There is nonspecific mild mural thickening of distal ileum. Question inflammatory or infectious etiology. The appendix is not seen. Fleischner guidelines were followed.
[2021-11-11] MEDS: Barium Sulfate Oral (Berry) 450 ML ORAL.SUSP 900 ML PO (11:08)
[2021-11-11] MEDS: iohexoL 350 MG/ML 100 ML INFUS..BTL 85 ML IV (12:06)
== END 2021-11-11 08:25 | disposition home or self-care (01) ==
LOC: HO.CT 08:24
PROVIDERS: Visit Provider Surgery
DX: R10.32 Left lower quadrant pain (principal)
CPT/HCPCS: 74177; Q9967

== ENCOUNTER → 2021-11-25 12:45 | Outpatient (BNVA) | payer OTHER, SELFPAY | PROVIDERS: PCP Internal Medicine; Visit Provider Surgery | DX: R10.32 Left lower quadrant pain (principal) | CPT/HCPCS: 99212 ==

== ENCOUNTER → 2021-12-11 09:54 | Outpatient (BNVA) | payer OTHER, SELFPAY | PROVIDERS: PCP Internal Medicine; Visit Provider Nurse Practitioner Family | DX: K59.04 Chronic idiopathic constipation (principal); K21.9 Gastro-esophageal reflux disease without esophagitis; R10.32 Left lower quadrant pain; M79.2 Neuralgia and neuritis, unspecified; R11.10 Vomiting, unspecified | CPT/HCPCS: 99212; Q3014 ==

== ENCOUNTER → 2022-02-05 10:00 | Outpatient (BNVA) | payer OTHER, SELFPAY | PROVIDERS: PCP Internal Medicine; Referring Provider Internal Medicine; Visit Provider Nurse Practitioner Family | DX: K59.04 Chronic idiopathic constipation (principal); K64.9 Unspecified hemorrhoids; R10.32 Left lower quadrant pain | CPT/HCPCS: 99212 ==

== ENCOUNTER 2022-02-08 10:26 | Outpatient (REF) | payer OTHER, SELFPAY ==
[2022-02-08 11:22] LABS: Lipase 54 U/L (8-78)
== END 2022-02-08 10:27 | disposition home or self-care (01) ==
LOC: HO.LAB 10:26
PROVIDERS: PCP Internal Medicine; Visit Provider Nurse Practitioner Family
DX: R10.9 Unspecified abdominal pain (principal)
CPT/HCPCS: 36415; 83690

== ENCOUNTER 2022-02-11 | Outpatient (REF) | payer OTHER, SELFPAY ==
[2022-02-19 20:33] LABS: Pancreatic Elastase-1 >500 mcg/g
== END 2022-02-11 00:01 | disposition home or self-care (01) ==
LOC: HO.LNP
PROVIDERS: Visit Provider Nurse Practitioner Family
DX: R10.9 Unspecified abdominal pain (principal)
CPT/HCPCS: 82656

== ENCOUNTER → 2022-05-07 10:50 | Outpatient (BNVA) | payer OTHER, SELFPAY | PROVIDERS: PCP Internal Medicine; Visit Provider Nurse Practitioner Family | DX: K59.04 Chronic idiopathic constipation (principal); K64.9 Unspecified hemorrhoids; R10.32 Left lower quadrant pain | CPT/HCPCS: 99212 ==

== ENCOUNTER → 2022-05-31 14:42 | Outpatient (BNVA) | payer OTHER, SELFPAY | PROVIDERS: PCP Internal Medicine; Referring Provider Internal Medicine; Visit Provider Internal Medicine Cardiovascular Disease | DX: I25.10 Atherosclerotic heart disease of native coronary artery without angina pectoris (principal) | CPT/HCPCS: 93005; 99212 ==

== ENCOUNTER 2022-06-11 10:35 | Outpatient (REF) | payer OTHER, SELFPAY ==
[2022-06-11 11:38] LABS: Cholesterol 140 mg/dL; HDL Cholesterol 37 mg/dL; LDL Cholesterol Calculated 74 mg/dl; Triglycerides 147 mg/dL
== END 2022-06-11 10:36 | disposition home or self-care (01) ==
LOC: HO.LAB 10:35
PROVIDERS: PCP Internal Medicine; Visit Provider Internal Medicine Cardiovascular Disease
DX: I25.10 Atherosclerotic heart disease of native coronary artery without angina pectoris (principal)
CPT/HCPCS: 36415; 80061

== ENCOUNTER 2022-07-06 16:46 | Emergency (ER) | payer OTHER, SELFPAY ==
--- NOTE | ~2022-07-06 | XR_ITS ---
EXAMINATION: XR ABDOMEN KUB CLINICAL INDICATION: Constipation COMPARISON: 11/11/2021 TECHNIQUE: AP view of the abdomen. FINDINGS: Bowel gas pattern is nonobstructive. Moderate volume of stool is seen predominantly in the ascending and transverse colon. There is limited evaluation for free air with supine positioning. Calcifications in the lower pelvis favor phleboliths. Multiple clips overlie the lower abdomen. Included lung bases appear well-aerated. No acute osseous findings are seen. XR/XR KUB IMPRESSION: Moderate volume of stool. Nonobstructive bowel gas pattern.
[2022-07-06 17:03] VITALS: BP 139/80; PULSE 66; RESP 18; TEMP 36.8; O2SAT 98; BMI 28.0
--- NOTE | 2022-07-06 17:04 | ED.ABDPAIN ---
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 comes here for similar pain going on for long time no acute increase in intensity no vomiting no fever no chills says that he could not make an appointment with PCP hence he came to the ER <Juan José Rivas MD - Last Filed: 07/07/22 06:23> Related Data Home Medications: Home Medications Medication Instructions Recorded Confirmed aspirin 81 mg tablet,delayed 81 mg PO QAM 12/08/20 05/31/22 release atorvastatin 80 mg tablet 80 mg PO BEDTIME 12/08/20 05/31/22 fluoxetine 20 mg capsule 60 mg PO QAM 12/08/20 05/31/22 propranolol 10 mg tablet 10 mg PO BID 12/19/20 05/31/22 levetiracetam 250 mg tablet 250 mg PO BID 07/28/21 05/31/22 multivitamin-ferrous 1 tab PO DAILY 05/31/22 05/31/22 fumarate-folic acid 18 mg-400 mcg tablet (Certavite-Antioxidant) tamsulosin 0.4 mg capsule 0.8 mg PO DAILY 05/31/22 05/31/22 Previous Rx's Medication Instructions Recorded capsaicin 0.1 % topical cream 1 appl topical BID #42.5 grams 12/11/21 famotidine 40 mg tablet 40 mg PO BEDTIME #30 tabs 02/26/22 pantoprazole 40 mg tablet,delayed 40 mg PO BID #60 tabs 02/26/22 release hydrocortisone 2.5 % topical cream 1 appl [place] BID-QID PRN hemorrhoids 05/07/22 with perineal applicator #30 grams (Proctosol HC) plecanatide 3 mg tablet (Trulance) 3 mg PO DAILY #90 tabs 05/07/22 polyethylene glycol 3350 17 17 g PO DAILY #510 grams 05/07/22 gram/dose oral powder (Miralax) sennosides 8.6 mg tablet (Natural 17.2 mg PO BEDTIME constipation 05/07/22 Senna Laxative) #180 tabs <TYRON Busby - Last Filed: 07/06/22 17:09> Allergies/Adverse Reactions: Allergies Allergy/AdvReac Type Severity Reaction Status Date / Time No Known Allergies Allergy Verified 05/07/22 10:56 <TYRON Busby - Last Filed: 07/06/22 17:09> Review of Systems Review of Systems Yes all other systems are reviewed and are negative <Juan José Rivas MD - Last Filed: 07/07/22 06:23> [facility] Past Medical History Medical History: Medical History CAD (coronary artery disease) <TYRON Busby - Last Filed: 07/06/22 17:09> Surgical History: Surgical History History of esophagogastroduodenoscopy (EGD) Hx of colonoscopy <TYRON Busby - Last Filed: 07/06/22 17:09> Family History Family History: Family History Father Cancer Mother Cancer <TYRON Busby - Last Filed: 07/06/22 17:09> Social History Social History: Social History Alcohol intake: never Patient Tobacco Use Status: Never used Tobacco Advance Directives: Yes Advance Directives on File: Yes Advance Directives Date on File: 02/25/21 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 <TYRON Busby - Last Filed: 07/06/22 17:09> Physical Exam ED Vital Signs: Vital Signs - 24 hr 07/06/22 17:03 07/07/22 00:17 Temperature 98.2 F 97.5 F Pulse Rate 66 53 Respiratory Rate 18 17 Blood Pressure 139/80 138/82 Pulse Oximetry 98 99 Oxygen Delivery Method Room Air Room Air BMI result Body Mass Index 28.0 <TYRON Busby - Last Filed: 07/06/22 17:09> Vital Signs - 24 hr 07/06/22 17:03 07/07/22 00:17 Temperature 98.2 F 97.5 F Pulse Rate 66 53 Respiratory Rate 18 17 Blood Pressure 139/80 138/82 Pulse Oximetry 98 99 Oxygen Delivery Method Room Air Room Air BMI result Body Mass Index 28.0 <Juan José Rivas MD - Last Filed: 07/07/22 06:23> Appearance: Alert. Oriented X3. No acute distress. Eyes: No pallor/ icterus ENT: Pharynx normal. Oral Mucosa moist Neck: Normal inspection. Neck supple. CVS: Normal heart rate and rhythm. Pulses normal. Respiratory: No respiratory distress. Equal air entry bilateral, no wheezing/rales/rhonchi Abdomen: Soft mild deep tenderness left lower quadrant. Bowel sounds are present, no mass palpable, no CVA tenderness Skin: Skin warm and dry. Normal skin color. Normal skin turgor. Extremities: No lower extremity edema. No calf tenderness Neuro: Oriented X 3. No motor deficit. <Juan José Rivas MD - Last Filed: 07/07/22 06:23> Course Course Course Narrative: RME--62-year-old male with past medical history of CAD presenting to the ED complaining of LLQ abd pain x2 years, worsening over the past few months, now with RLQ abd pain x 2 weeks. Also reports hematuria x 6wks and intermittent bloody stools. Takes baby ASA Abdomen soft with mild suprapubic tenderness Labs, UA ordered <TYRON Busby - Last Filed: 07/06/22 17:09> Medical Decision Making Medical Decision Making MDM Narrative: Patient has chronic lower abdominal pain secondary to constipation been to aspirin with multiple visits x-ray shows moderate amount of stool discharge patient advised continue MiraLax increase dose to 2 time <Juan José Rivas MD - Last Filed: 07/07/22 06:23> Lab Data [facility] Lab Attestation statement: I reviewed the patient's lab results. <Juan José Rivas MD - Last Filed: 07/07/22 06:23> Result Diagrams: 07/06/22 18:04 07/06/22 18:04 <TYRON Busby - Last Filed: 07/06/22 17:09> Labs: Lab Results 07/06/22 07/06/22 07/06/22 Range/Units 18:04 18:04 18:04 WBC 3.7 L (4.8-10.8) X10*3/uL RBC 5.12 (4.60-5.80) X10*6/uL Hgb 14.1 (14.0-18.0) g/dl Hct 43.9 (42.0-52.0) % MCV 85.7 (80.0-98.0) fL MCH 27.5 (27.0-33.0) pg MCHC 32.1 (31.0-36.0) g/dl RDW 13.3 (11.0-16.0) % Plt Count 171 (160-400) X10*3/uL MPV 9.6 (9.4-12.4) fL Immature Gran % (Auto) 0.3 (0.0-0.4) % Neut % (Auto) 41.1 L (45-73) % Lymph % (Auto) 46.3 H (20-40) % [place] % (Auto) 9.4 (2-11) % Eos % (Auto) 2.1 (0-4) % Baso % (Auto) 0.8 (0-2) % Lymph # (Auto) 1.7 (1.2-4.9) X10*3/uL [place] # (Auto) 0.4 (0.1-1.2) X10*3/uL Eos # (Auto) 0.1 (0.0-0.4) X10*3/uL Baso # (Auto) 0.0 (0.0-0.2) X10*3/uL Abs Immat Gran (auto) 0.01 (0.00-0.03) X10*3/uL Absolute Neuts (auto) 1.5 L (2.0-8.3) x10*3/uL Absolute Nucleated RBC 0.000 (0.0-0.012) X10*3/uL Nucleated RBC % (auto) 0.0 (0.0-0.2) /100WBC PT 10.7 (10.0-13.1) SEC INR 0.9 (0.9-1.1) Sodium 142 (135-145) mmol/L Potassium 4.5 (3.3-5.1) mmol/L Chloride 108 (96-108) mmol/L Carbon Dioxide 28 (22-29) mmol/L Anion Gap 11 L (12-20) BUN 14 (9-16) mg/dL Creatinine 0.89 (0.5-1.4) mg/dL Estim Creat Clear Calc 93.5 Estimated GFR > 60 Random Glucose 89 (60-115) mg/dL Calcium 9.2 (8.4-10.2) mg/dL Magnesium 2.0 (1.6-2.6) mg/dL Total Bilirubin 1.0 (0.0-1.0) mg/dL Direct Bilirubin 0.3 (0.0-0.5) mg/dL AST 18 (5-37) U/L ALT 47 H (0-40) U/L Alkaline Phosphatase 85 (39-117) U/L Total Protein 6.6 (6.5-8.0) g/dL Albumin 4.2 (3.5-5.0) g/dL Lipase 30 (8-78) U/L Urine Color Urine Appearance Urine pH (5.0-9.0) Ur Specific [place] (1.005-1.025) Urine Protein (Neg-Trace) mg/dL Urine Glucose (UA) (Negative) mg/dL Urine Ketones (Negative) mg/dL Urine Blood (Negative) Urine Nitrite (Negative) Ur Leukocyte Esterase (Negative) 07/06/22 Range/Units 21:08 WBC (4.8-10.8) X10*3/uL RBC (4.60-5.80) X10*6/uL Hgb (14.0-18.0) g/dl Hct (42.0-52.0) % MCV (80.0-98.0) fL MCH (27.0-33.0) pg MCHC (31.0-36.0) g/dl RDW (11.0-16.0) % Plt Count (160-400) X10*3/uL MPV (9.4-12.4) fL Immature Gran % (Auto) (0.0-0.4) % Neut % (Auto) (45-73) % Lymph % (Auto) (20-40) % [place] % (Auto) (2-11) % Eos % (Auto) (0-4) % Baso % (Auto) (0-2) % Lymph # (Auto) (1.2-4.9) X10*3/uL [place] # (Auto) (0.1-1.2) X10*3/uL Eos # (Auto) (0.0-0.4) X10*3/uL Baso # (Auto) (0.0-0.2) X10*3/uL Abs Immat Gran (auto) (0.00-0.03) X10*3/uL Absolute Neuts (auto) (2.0-8.3) x10*3/uL Absolute Nucleated RBC (0.0-0.012) X10*3/uL Nucleated RBC % (auto) (0.0-0.2) /100WBC PT (10.0-13.1) SEC INR (0.9-1.1) Sodium (135-145) mmol/L Potassium (3.3-5.1) mmol/L Chloride (96-108) mmol/L Carbon Dioxide (22-29) mmol/L Anion Gap (12-20) BUN (9-16) mg/dL Creatinine (0.5-1.4) mg/dL Estim Creat Clear Calc Estimated GFR Random Glucose (60-115) mg/dL Calcium (8.4-10.2) mg/dL Magnesium (1.6-2.6) mg/dL Total Bilirubin (0.0-1.0) mg/dL Direct Bilirubin (0.0-0.5) mg/dL AST (5-37) U/L ALT (0-40) U/L Alkaline Phosphatase (39-117) U/L Total Protein (6.5-8.0) g/dL Albumin (3.5-5.0) g/dL Lipase (8-78) U/L Urine Color Dark Yellow Urine Appearance Clear Urine pH 6.5 (5.0-9.0) Ur Specific [place] >= 1.030 H (1.005-1.025) Urine Protein Trace (Neg-Trace) mg/dL Urine Glucose (UA) Negative (Negative) mg/dL Urine Ketones Negative (Negative) mg/dL Urine Blood Negative (Negative) Urine Nitrite Negative (Negative) Ur Leukocyte Esterase Negative (Negative) <TYRON Busby - Last Filed: 07/06/22 17:09> Lab Results 07/06/22 07/06/22 07/06/22 Range/Units 18:04 18:04 18:04 WBC 3.7 L (4.8-10.8) X10*3/uL RBC 5.12 (4.60-5.80) X10*6/uL Hgb 14.1 (14.0-18.0) g/dl Hct 43.9 (42.0-52.0) % MCV 85.7 (80.0-98.0) fL MCH 27.5 (27.0-33.0) pg MCHC 32.1 (31.0-36.0) g/dl RDW 13.3 (11.0-16.0) % Plt Count 171 (160-400) X10*3/uL MPV 9.6 (9.4-12.4) fL Immature Gran % (Auto) 0.3 (0.0-0.4) % Neut % (Auto) 41.1 L (45-73) % Lymph % (Auto) 46.3 H (20-40) % [place] % (Auto) 9.4 (2-11) % Eos % (Auto) 2.1 (0-4) % Baso % (Auto) 0.8 (0-2) % Lymph # (Auto) 1.7 (1.2-4.9) X10*3/uL [place] # (Auto) 0.4 (0.1-1.2) X10*3/uL Eos # (Auto) 0.1 (0.0-0.4) X10*3/uL Baso # (Auto) 0.0 (0.0-0.2) X10*3/uL Abs Immat Gran (auto) 0.01 (0.00-0.03) X10*3/uL Absolute Neuts (auto) 1.5 L (2.0-8.3) x10*3/uL Absolute Nucleated RBC 0.000 (0.0-0.012) X10*3/uL Nucleated RBC % (auto) 0.0 (0.0-0.2) /100WBC PT 10.7 (10.0-13.1) SEC INR 0.9 (0.9-1.1) Sodium 142 (135-145) mmol/L Potassium 4.5 (3.3-5.1) mmol/L Chloride 108 (96-108) mmol/L Carbon Dioxide 28 (22-29) mmol/L Anion Gap 11 L (12-20) BUN 14 (9-16) mg/dL Creatinine 0.89 (0.5-1.4) mg/dL Estim Creat Clear Calc 93.5 Estimated GFR > 60 Random Glucose 89 (60-115) mg/dL Calcium 9.2 (8.4-10.2) mg/dL Magnesium 2.0 (1.6-2.6) mg/dL Total Bilirubin 1.0 (0.0-1.0) mg/dL Direct Bilirubin 0.3 (0.0-0.5) mg/dL AST 18 (5-37) U/L ALT 47 H (0-40) U/L Alkaline Phosphatase 85 (39-117) U/L Total Protein 6.6 (6.5-8.0) g/dL Albumin 4.2 (3.5-5.0) g/dL Lipase 30 (8-78) U/L Urine Color Urine Appearance Urine pH (5.0-9.0) Ur Specific [place] (1.005-1.025) Urine Protein (Neg-Trace) mg/dL Urine Glucose (UA) (Negative) mg/dL Urine Ketones (Negative) mg/dL Urine Blood (Negative) Urine Nitrite (Negative) Ur Leukocyte Esterase (Negative) 07/06/22 Range/Units 21:08 WBC (4.8-10.8) X10*3/uL RBC (4.60-5.80) X10*6/uL Hgb (14.0-18.0) g/dl Hct (42.0-52.0) % MCV (80.0-98.0) fL MCH (27.0-33.0) pg MCHC (31.0-36.0) g/dl RDW (11.0-16.0) % Plt Count (160-400) X10*3/uL MPV (9.4-12.4) fL Immature Gran % (Auto) (0.0-0.4) % Neut % (Auto) (45-73) % Lymph % (Auto) (20-40) % [place] % (Auto) (2-11) % Eos % (Auto) (0-4) % Baso % (Auto) (0-2) % Lymph # (Auto) (1.2-4.9) X10*3/uL [place] # (Auto) (0.1-1.2) X10*3/uL Eos # (Auto) (0.0-0.4) X10*3/uL Baso # (Auto) (0.0-0.2) X10*3/uL Abs Immat Gran (auto) (0.00-0.03) X10*3/uL Absolute Neuts (auto) (2.0-8.3) x10*3/uL Absolute Nucleated RBC (0.0-0.012) X10*3/uL Nucleated RBC % (auto) (0.0-0.2) /100WBC PT (10.0-13.1) SEC INR (0.9-1.1) Sodium (135-145) mmol/L Potassium (3.3-5.1) mmol/L Chloride (96-108) mmol/L Carbon Dioxide (22-29) mmol/L Anion Gap (12-20) BUN (9-16) mg/dL Creatinine (0.5-1.4) mg/dL Estim Creat Clear Calc Estimated GFR Random Glucose (60-115) mg/dL Calcium (8.4-10.2) mg/dL Magnesium (1.6-2.6) mg/dL Total Bilirubin (0.0-1.0) mg/dL Direct Bilirubin (0.0-0.5) mg/dL AST (5-37) U/L ALT (0-40) U/L Alkaline Phosphatase (39-117) U/L Total Protein (6.5-8.0) g/dL Albumin (3.5-5.0) g/dL Lipase (8-78) U/L Urine Color Dark Yellow Urine Appearance Clear Urine pH 6.5 (5.0-9.0) Ur Specific [place] >= 1.030 H (1.005-1.025) Urine Protein Trace (Neg-Trace) mg/dL Urine Glucose (UA) Negative (Negative) mg/dL Urine Ketones Negative (Negative) mg/dL Urine Blood Negative (Negative) Urine Nitrite Negative (Negative) Ur Leukocyte Esterase Negative (Negative) <Juan José Rivas MD - Last Filed: 07/07/22 06:23> Medications Administered Discontinued Medications Generic Name Dose Route Start Last Admin Trade Name Freq PRN Reason Stop Dose Admin Magnesium Hydroxide 30 ml 07/06/22 23:26 07/06/22 23:46 Milk Of Magnesia 30 Ml Oral.Susp PO 07/06/22 23:27 30 ml ONCE ONE Administration <TYRON Busby - Last Filed: 07/06/22 17:09> Medications Administered Discontinued Medications Generic Name Dose Route Start Last Admin Trade Name Freq PRN Reason Stop Dose Admin Magnesium Hydroxide 30 ml 07/06/22 23:26 07/06/22 23:46 Milk Of Magnesia 30 Ml Oral.Susp PO 07/06/22 23:27 30 ml ONCE ONE Administration <Juan José Rivas MD - Last Filed: 07/07/22 06:23> Discharge Plan Discharge Clinical Impression: Constipation <TYRON Busby - Last Filed: 07/06/22 17:09> Patient Disposition: Home, Self-Care <TYRON Busby - Last Filed: 07/06/22 17:09> Additional Instructions: Continue to take stool softener increase his MiraLax to 2 times daily Follow with PCP/gastroenterology Contin?e tomando ablandador de heces aumentar sy MiraLax a 2 veces al d?a Seguir con PCP/gastroenterolog?a <TYRON Busby - Last Filed: 07/06/22 17:09> Prescriptions: No Action famotidine 40 mg tablet 40 mg PO BEDTIME Qty: 30 3RF pantoprazole 40 mg tablet,delayed release (DR/EC) 40 mg PO BID Qty: 60 3RF fluoxetine 20 mg capsule 60 mg PO QAM atorvastatin 80 mg tablet 80 mg PO BEDTIME aspirin 81 mg tablet,delayed release (DR/EC) 81 mg PO QAM propranolol 10 mg tablet 10 mg PO BID levetiracetam 250 mg tablet 250 mg PO BID tamsulosin 0.4 mg capsule 0.8 mg PO DAILY Certavite-Antioxidant 18-400 mg-mcg tablet 1 tab PO DAILY capsaicin 0.1 % cream 1 appl topical BID Qty: 42.5 0RF Rx Instructions: do not wash area for at least 30 min after application hydrocortisone [Proctosol HC] 2.5 % cream with perineal applicator 1 appl [place] BID-QID PRN (Reason: hemorrhoids) Qty: 30 4RF sennosides [Natural Senna Laxative] 8.6 mg tablet 17.2 mg PO BEDTIME Qty: 180 3RF polyethylene glycol 3350 [Miralax] 17 gram/dose powder 17 g PO DAILY Qty: 510 2RF Trulance 3 mg tablet 3 mg PO DAILY Qty: 90 3RF <TYRON Busby - Last Filed: 07/06/22 17:09> Interventions: ED Discharge Assessment Last Done: 07/07/22 00:27 <TYRON Busby - Last Filed: 07/06/22 17:09> Discharge Date/Time: 07/07/22 00:29 <TYRON Busby - Last Filed: 07/06/22 17:09> Print Language: Togolese <TYRON Busby - Last Filed: 07/06/22 17:09>
[2022-07-06 18:10] LABS: MANUAL DIFF FLAG NO
[2022-07-06 18:17] LABS: Basophils Percent Auto 0.8 % (0-2); Eosinophils Absolute Auto 0.1 X10*3/uL (0.0-0.4); Eosinophils Percent Auto 2.1 % (0-4); Hematocrit 43.9 % (42.0-52.0); Hemoglobin 14.1 g/dl (14.0-18.0); Imm Gran Abs Auto 0.01 X10*3/uL (0.00-0.03); Imm Gran Pct Auto 0.3 % (0.0-0.4); Lymphocytes Absolute Auto 1.7 X10*3/uL (1.2-4.9); Lymphocytes Percent Auto 46.3 % (20-40); Mean Corpuscular HGB Conc 32.1 g/dl (31.0-36.0); Mean Corpuscular Hemoglobin 27.5 pg (27.0-33.0); Mean Corpuscular Volume 85.7 fL (80.0-98.0); Mean Platelet Volume 9.6 fL (9.4-12.4); Monocytes Absolute Auto 0.4 X10*3/uL (0.1-1.2); Monocytes Percent Auto 9.4 % (2-11); Neutrophils Absolute Auto 1.5 x10*3/uL (2.0-8.3); Neutrophils Percent Auto 41.1 % (45-73); Platelet Count 171 X10*3/uL (160-400); Red Blood Count 5.12 X10*6/uL (4.60-5.80); Red Cell Distribution Width 13.3 % (11.0-16.0); White Blood Count 3.7 X10*3/uL (4.8-10.8)
[2022-07-06 18:37] LABS: Alanine Aminotransferase 47 U/L (0-40); Albumin Level 4.2 g/dL (3.5-5.0); Alkaline Phosphatase 85 U/L (39-117); Anion Gap 11 (12-20); Aspartate Amino Transferase 18 U/L (5-37); Bilirubin Direct 0.3 mg/dL (0.0-0.5); Blood Urea Nitrogen 14 mg/dL (9-16); Calcium 9.2 mg/dL (8.4-10.2); Carbon Dioxide 28 mmol/L (22-29); Chloride 108 mmol/L (96-108); Creatinine Clr Calc Pharmacy 93.5; Estimated Glomerular Filt Rate > 60; Glucose Random 89 mg/dL (60-115); INTERNATIONAL NORM RATIO 0.9 (0.9-1.1); Lipase 30 U/L (8-78); Potassium 4.5 mmol/L (3.3-5.1); Prothrombin Time 10.7 SEC (10.0-13.1); Sodium 142 mmol/L (135-145); Total Protein 6.6 g/dL (6.5-8.0)
[2022-07-06 21:18] LABS: Appearance Urine Clear; Color Urine Dark Yellow; Glucose Urine UA Negative (Negative); Leukocyte Esterase Urine Negative (Negative); Nitrite Urine Negative (Negative); PH 6.5 (5.0-9.0); Specific Gravity - Urine >= 1.030 (1.005-1.025); Urine Blood Negative (Negative); Urine Ketones Negative (Negative); Urine Protein Trace mg/dL (Neg-Trace)
--- NOTE | 2022-07-06 23:13 | ED.ABDPAIN ---
HPI - Abdominal Pain General Chief Complaint: Abdominal Pain Stated Complaint: Lower R abdominal pain Time Seen by Provider: 07/06/22 23:12 Source: patient Mode of arrival: ambulatory Limitations: no limitations History of Present Illness HPI narrative: Patient with chronic lower abdominal pain with constipation as a cause with detailed workup done in the past seen by [employer] and PCP comes here for ongoing pain for long time unable to see PCP. No nausea no vomiting fair appetite patient taking senna and MiraLax at home had bowel movement today Related Data Home Medications Medication Instructions Recorded Confirmed aspirin 81 mg tablet,delayed 81 mg PO QAM 12/08/20 05/31/22 release atorvastatin 80 mg tablet 80 mg PO BEDTIME 12/08/20 05/31/22 fluoxetine 20 mg capsule 60 mg PO QAM 12/08/20 05/31/22 propranolol 10 mg tablet 10 mg PO BID 12/19/20 05/31/22 levetiracetam 250 mg tablet 250 mg PO BID 07/28/21 05/31/22 multivitamin-ferrous 1 tab PO DAILY 05/31/22 05/31/22 fumarate-folic acid 18 mg-400 mcg tablet (Certavite-Antioxidant) tamsulosin 0.4 mg capsule 0.8 mg PO DAILY 05/31/22 05/31/22 Previous Rx's Medication Instructions Recorded capsaicin 0.1 % topical cream 1 appl topical BID #42.5 grams 12/11/21 famotidine 40 mg tablet 40 mg PO BEDTIME #30 tabs 02/26/22 pantoprazole 40 mg tablet,delayed 40 mg PO BID #60 tabs 02/26/22 release hydrocortisone 2.5 % topical cream 1 appl [place] BID-QID PRN hemorrhoids 05/07/22 with perineal applicator #30 grams (Proctosol HC) plecanatide 3 mg tablet (Trulance) 3 mg PO DAILY #90 tabs 05/07/22 polyethylene glycol 3350 17 17 g PO DAILY #510 grams 05/07/22 gram/dose oral powder (Miralax) sennosides 8.6 mg tablet (Natural 17.2 mg PO BEDTIME constipation 05/07/22 Senna Laxative) #180 tabs Allergies Allergy/AdvReac Type Severity Reaction Status Date / Time No Known Allergies Allergy Verified 05/07/22 10:56 Review of Systems Review of Systems Yes all other systems are reviewed and are negative PMFSH Past Medical History Medical History CAD (coronary artery disease) Surgical History History of esophagogastroduodenoscopy (EGD) Hx of colonoscopy Family History Family History Father Cancer Mother Cancer Social History Social History Alcohol intake: never Patient Tobacco Use Status: Never used Tobacco Advance Directives: Yes Advance Directives on File: Yes Advance Directives Date on File: 02/25/21 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 Oriented X3. No acute distress. Eyes: PERRLA, No Nystagmus ENT: Pharynx normal. Oral Mucosa moist Neck: Normal inspection. Neck supple. CVS: Normal heart rate and rhythm. Pulses normal. Respiratory: No respiratory distress. Equal air entry bilateral, no wheezing/rales/rhonchi Abdomen: Soft , mild deep tenderness or left lower quadrant Bowel sounds are present, no mass palpable, no CVA tenderness Skin: Skin warm and dry. Normal skin color. Normal skin turgor. Extremities: No lower extremity edema. No calf tenderness Neuro: Oriented X 3. No motor deficit. No sensory deficit.No cerebellar signs , cranial nerves II-XII intact Medical Decision Making Medical Decision Making MDM Narrative: Patient has stable labs chronic abdominal pain with diarrhea workup in the past negative except for constipation likely the cause of the pain KUB done which showed moderate amount of stool patient advised gastroenterology 2 times a day for once Lab Data [facility] Lab Attestation statement: I reviewed the patient's lab results. 07/06/22 18:04 07/06/22 18:04 Labs: Lab Results 07/06/22 07/06/22 07/06/22 Range/Units 18:04 18:04 18:04 WBC 3.7 L (4.8-10.8) X10*3/uL RBC 5.12 (4.60-5.80) X10*6/uL Hgb 14.1 (14.0-18.0) g/dl Hct 43.9 (42.0-52.0) % MCV 85.7 (80.0-98.0) fL MCH 27.5 (27.0-33.0) pg MCHC 32.1 (31.0-36.0) g/dl RDW 13.3 (11.0-16.0) % Plt Count 171 (160-400) X10*3/uL MPV 9.6 (9.4-12.4) fL Immature Gran % (Auto) 0.3 (0.0-0.4) % Neut % (Auto) 41.1 L (45-73) % Lymph % (Auto) 46.3 H (20-40) % [place] % (Auto) 9.4 (2-11) % Eos % (Auto) 2.1 (0-4) % Baso % (Auto) 0.8 (0-2) % Lymph # (Auto) 1.7 (1.2-4.9) X10*3/uL [place] # (Auto) 0.4 (0.1-1.2) X10*3/uL Eos # (Auto) 0.1 (0.0-0.4) X10*3/uL Baso # (Auto) 0.0 (0.0-0.2) X10*3/uL Abs Immat Gran (auto) 0.01 (0.00-0.03) X10*3/uL Absolute Neuts (auto) 1.5 L (2.0-8.3) x10*3/uL Absolute Nucleated RBC 0.000 (0.0-0.012) X10*3/uL Nucleated RBC % (auto) 0.0 (0.0-0.2) /100WBC PT 10.7 (10.0-13.1) SEC INR 0.9 (0.9-1.1) Sodium 142 (135-145) mmol/L Potassium 4.5 (3.3-5.1) mmol/L Chloride 108 (96-108) mmol/L Carbon Dioxide 28 (22-29) mmol/L Anion Gap 11 L (12-20) BUN 14 (9-16) mg/dL Creatinine 0.89 (0.5-1.4) mg/dL Estim Creat Clear Calc 93.5 Estimated GFR > 60 Random Glucose 89 (60-115) mg/dL Calcium 9.2 (8.4-10.2) mg/dL Magnesium 2.0 (1.6-2.6) mg/dL Total Bilirubin 1.0 (0.0-1.0) mg/dL Direct Bilirubin 0.3 (0.0-0.5) mg/dL AST 18 (5-37) U/L ALT 47 H (0-40) U/L Alkaline Phosphatase 85 (39-117) U/L Total Protein 6.6 (6.5-8.0) g/dL Albumin 4.2 (3.5-5.0) g/dL Lipase 30 (8-78) U/L Urine Color Urine Appearance Urine pH (5.0-9.0) Ur Specific [place] (1.005-1.025) Urine Protein (Neg-Trace) mg/dL Urine Glucose (UA) (Negative) mg/dL Urine Ketones (Negative) mg/dL Urine Blood (Negative) Urine Nitrite (Negative) Ur Leukocyte Esterase (Negative) 07/06/22 Range/Units 21:08 WBC (4.8-10.8) X10*3/uL RBC (4.60-5.80) X10*6/uL Hgb (14.0-18.0) g/dl Hct (42.0-52.0) % MCV (80.0-98.0) fL MCH (27.0-33.0) pg MCHC (31.0-36.0) g/dl RDW (11.0-16.0) % Plt Count (160-400) X10*3/uL MPV (9.4-12.4) fL Immature Gran % (Auto) (0.0-0.4) % Neut % (Auto) (45-73) % Lymph % (Auto) (20-40) % [place] % (Auto) (2-11) % Eos % (Auto) (0-4) % Baso % (Auto) (0-2) % Lymph # (Auto) (1.2-4.9) X10*3/uL [place] # (Auto) (0.1-1.2) X10*3/uL Eos # (Auto) (0.0-0.4) X10*3/uL Baso # (Auto) (0.0-0.2) X10*3/uL Abs Immat Gran (auto) (0.00-0.03) X10*3/uL Absolute Neuts (auto) (2.0-8.3) x10*3/uL Absolute Nucleated RBC (0.0-0.012) X10*3/uL Nucleated RBC % (auto) (0.0-0.2) /100WBC PT (10.0-13.1) SEC INR (0.9-1.1) Sodium (135-145) mmol/L Potassium (3.3-5.1) mmol/L Chloride (96-108) mmol/L Carbon Dioxide (22-29) mmol/L Anion Gap (12-20) BUN (9-16) mg/dL Creatinine (0.5-1.4) mg/dL Estim Creat Clear Calc Estimated GFR Random Glucose (60-115) mg/dL Calcium (8.4-10.2) mg/dL Magnesium (1.6-2.6) mg/dL Total Bilirubin (0.0-1.0) mg/dL Direct Bilirubin (0.0-0.5) mg/dL AST (5-37) U/L ALT (0-40) U/L Alkaline Phosphatase (39-117) U/L Total Protein (6.5-8.0) g/dL Albumin (3.5-5.0) g/dL Lipase (8-78) U/L Urine Color Dark Yellow Urine Appearance Clear Urine pH 6.5 (5.0-9.0) Ur Specific [place] >= 1.030 H (1.005-1.025) Urine Protein Trace (Neg-Trace) mg/dL Urine Glucose (UA) Negative (Negative) mg/dL Urine Ketones Negative (Negative) mg/dL Urine Blood Negative (Negative) Urine Nitrite Negative (Negative) Ur Leukocyte Esterase Negative (Negative) Medications Administered Discontinued Medications Generic Name Dose Route Start Last Admin Trade Name Freq PRN Reason Stop Dose Admin Magnesium Hydroxide 30 ml 07/06/22 23:26 07/06/22 23:46 Milk Of Magnesia 30 Ml Oral.Susp PO 07/06/22 23:27 30 ml ONCE ONE Administration Discharge Plan Discharge Clinical Impression: Constipation Patient Disposition: Home, Self-Care Instructions: Constipation (ED) Additional Instructions: Continue to take stool softener increase his MiraLax to 2 times daily Follow with PCP/gastroenterology Contin?e tomando ablandador de heces aumentar sy MiraLax a 2 veces al d?a Seguir con PCP/gastroenterolog?a Prescriptions: No Action famotidine 40 mg tablet 40 mg PO BEDTIME Qty: 30 3RF pantoprazole 40 mg tablet,delayed release (DR/EC) 40 mg PO BID Qty: 60 3RF fluoxetine 20 mg capsule 60 mg PO QAM atorvastatin 80 mg tablet 80 mg PO BEDTIME aspirin 81 mg tablet,delayed release (DR/EC) 81 mg PO QAM propranolol 10 mg tablet 10 mg PO BID levetiracetam 250 mg tablet 250 mg PO BID tamsulosin 0.4 mg capsule 0.8 mg PO DAILY Certavite-Antioxidant 18-400 mg-mcg tablet 1 tab PO DAILY capsaicin 0.1 % cream 1 appl topical BID Qty: 42.5 0RF Rx Instructions: do not wash area for at least 30 min after application hydrocortisone [Proctosol HC] 2.5 % cream with perineal applicator 1 appl [place] BID-QID PRN (Reason: hemorrhoids) Qty: 30 4RF sennosides [Natural Senna Laxative] 8.6 mg tablet 17.2 mg PO BEDTIME Qty: 180 3RF polyethylene glycol 3350 [Miralax] 17 gram/dose powder 17 g PO DAILY Qty: 510 2RF Trulance 3 mg tablet 3 mg PO DAILY Qty: 90 3RF Print Language: Portuguese
[2022-07-06] MEDS: Milk of Magnesia 30 ML ORAL.SUSP PO (23:46)
[2022-07-07 00:17] VITALS: BP 138/82; PULSE 53; RESP 17; TEMP 36.4; O2SAT 99
== END 2022-07-07 00:29 | disposition home or self-care (01) ==
PROVIDERS: Physician Assistant; Emergency Provider Internal Medicine
DX: K59.00 Constipation, unspecified (principal); R10.32 Left lower quadrant pain; Z79.82 Long term (current) use of aspirin; Z79.02 Long term (current) use of antithrombotics/antiplatelets; Z79.899 Other long term (current) drug therapy
CPT/HCPCS: 36415; 74018; 80048; 80076; 81003; 83690; 83735; 85025; 85610; 99283

== ENCOUNTER 2022-08-04 09:40 | Outpatient (REF) | payer OTHER, SELFPAY ==
--- NOTE | ~2022-08-04 | FL_ITS ---
EXAMINATION: FL BARIUM SWALLOW CLINICAL INFORMATION: Dysphasia. COMPARISON: 04/23/2021. TECHNIQUE: Barium swallow examination is performed using fluoroscopic evaluation in addition to multiple fluoroscopic spot views. The patient is imaged both upright and prone and using both thick and thin sulfate. Fluoroscopy time: 1.4 minutes DAP: 2.935 Gycm2 Images: 33 FINDINGS: There is normal apposition of vocal cords while saying E. There is normal elevation of the soft palate while saying candy. Patient swallowed thin and thick barium and half-inch diameter barium tablet without difficulty. There is no nasopharyngeal reflux or tracheal aspiration. There is normal esophageal motility. No persistent stricture or mucosal abnormalities appreciated. No significant cricopharyngeal hypertrophy or Zenker's diverticulum is identified. No hiatal hernia. No gastroesophageal reflux was elicited including using water siphon test. FL/FL barium swallow IMPRESSION: Normal esophagram.
== END 2022-08-04 09:41 | disposition home or self-care (01) ==
LOC: HO.XRAY 09:40
PROVIDERS: PCP Internal Medicine; Visit Provider Internal Medicine
DX: R13.10 Dysphagia, unspecified (principal)
CPT/HCPCS: 74220

== ENCOUNTER → 2022-08-16 08:50 | Outpatient (BNVA) | payer OTHER, SELFPAY | PROVIDERS: PCP Internal Medicine; Visit Provider Nurse Practitioner Family | DX: N40.0 Benign prostatic hyperplasia without lower urinary tract symptoms (principal); N39.43 Post-void dribbling | CPT/HCPCS: 51798; 99202 ==

== ENCOUNTER 2022-08-24 09:29 | Outpatient (REF) | payer OTHER, SELFPAY ==
[2022-08-24 11:38] LABS: PSA,Total (Free>4and<10) 2.53 ng/mL (0.00-4.00)
== END 2022-08-24 09:30 | disposition home or self-care (01) ==
LOC: HO.LAB 09:29
PROVIDERS: Visit Provider Nurse Practitioner Family
DX: N40.0 Benign prostatic hyperplasia without lower urinary tract symptoms (principal); Z12.5 Encounter for screening for malignant neoplasm of prostate
CPT/HCPCS: 36415; 84153

== ENCOUNTER 2022-09-15 09:36 | Outpatient (REF) | payer OTHER, SELFPAY ==
--- NOTE | ~2022-09-15 | US_ITS ---
EXAMINATION: US ABDOMEN COMPLETE CLINICAL INFORMATION: Generalized abdominal pain. COMPARISON: X-ray [facility] 07/06/2022. CT abdomen and pelvis 11/11/2021. Ultrasound abdomen complete 03/14/2018. Period TECHNIQUE: Real-time imaging of the abdominal viscera. Technically limited study secondary to bowel gas and body habitus. FINDINGS: PANCREAS: Normal. ABDOMINAL AORTA: The proximal abdominal aorta is not well visualized. The mid and distal abdominal aorta is normal in caliber. INFERIOR VENA CAVA: Visualized portions are normal. LIVER: The liver is normal in size. The liver contour is normal. Liver echotexture is slightly increased. No focal hepatic lesion. There is no intrahepatic biliary duct dilatation seen. GALLBLADDER: Normal. The gallbladder is physiologically distended without evidence of stones, sludge, polyps, wall thickening or pericholecystic fluid. COMMON BILE DUCT: Normal in caliber measuring 0.4 cm in diameter. RIGHT KIDNEY: Normal. No hydronephrosis. No renal calculi or focal parenchymal lesions. The kidney measures 10.8 cm in maximum dimension. LEFT KIDNEY: Normal. No hydronephrosis. No renal calculi or focal parenchymal lesions. The kidney measures 12.7 cm in maximum dimension. SPLEEN: Normal. The spleen measures 10.0 cm in maximum dimension. FREE FLUID: None. US/US abdomen complete IMPRESSION: Slightly echogenic liver. Limited visualization of the upper abdominal aorta.
--- NOTE | ~2022-09-15 | US_ITS ---
EXAMINATION: US PELVIS LIMITED (BLADDER) CLINICAL INFORMATION: Benign prostatic hyperplasia without lower urinary tract symptoms. COMPARISON: X-ray K[facility] 07/06/2022. CT abdomen and pelvis 11/11/2021. Ultrasound abdomen complete 03/14/2018. TECHNIQUE: Real-time imaging of the bladder. FINDINGS: BLADDER: Well distended. There is mild diffuse bladder wall thickening. No stone or mass.. Bilateral ureteral jets are demonstrated. Prevoid bladder volume is 207.1 mL. Postvoid bladder volume is 1.3 mL. US/US bladder IMPRESSION: Mild diffuse bladder wall thickening. No post void bladder residual.
== END 2022-09-15 09:37 | disposition home or self-care (01) ==
LOC: HO.US 09:36
PROVIDERS: PCP Registered Nurse; Visit Provider Nurse Practitioner Family
DX: N40.0 Benign prostatic hyperplasia without lower urinary tract symptoms (principal); R10.84 Generalized abdominal pain
CPT/HCPCS: 76700; 76857

== ENCOUNTER → 2022-09-30 08:25 | Outpatient (BNVA) | payer OTHER, SELFPAY | PROVIDERS: PCP Registered Nurse; Visit Provider Nurse Practitioner Family | DX: N40.0 Benign prostatic hyperplasia without lower urinary tract symptoms (principal); N39.43 Post-void dribbling | CPT/HCPCS: 51798; 99212 ==

== ENCOUNTER 2022-10-04 18:11 | Emergency (ER) | payer OTHER, SELFPAY ==
--- NOTE | ~2022-10-04 | CT_ITS ---
EXAMINATION: CT ABDOMEN AND PELVIS WITHOUT CONTRAST CLINICAL INFORMATION: Lower abdominal pain COMPARISON: 11/11/2021 TECHNIQUE: Multidetector volumetric imaging was performed from the superior aspect of the liver through the pubic symphysis. Sagittal and coronal reformatted images were obtained on the technologist's workstation. This CT examination was performed using dose optimization techniques as appropriate, variously including the following: *Automated exposure control *Adjustment of mA and/or kV according to patient size (this includes techniques or standardized protocols for targeted exams where dose is matched to indication/reason for exam; i.e. extremities or head) *Use of iterative reconstruction technique DLP: 664 mGy-cm FINDINGS: LUNG BASES: The visualized lung bases are unremarkable. LIVER, GALLBLADDER, AND BILIARY TREE: The liver is normal in size, shape, and attenuation. No focal hepatic lesion or biliary ductal dilatation is present. Gallbladder unremarkable. PANCREAS: Unremarkable. SPLEEN: Unremarkable. ADRENAL GLANDS: Unremarkable. KIDNEYS AND URETERS: The kidneys are normal in size, shape, and attenuation. No hydronephrosis, hydroureter, or calculi seen. No perinephric stranding. BLADDER: Unremarkable. GASTROINTESTINAL TRACT: No intestinal obstruction or inflammation. Normal appendix. Stomach and small bowel unremarkable. Submucosal fat deposition and present throughout the ascending colon, proximal transverse colon and terminal ileum. ABDOMINAL WALL: No significant hernia is appreciated. LYMPH NODES: No lymphadenopathy. Surgical clips present along the left iliac vasculature. VASCULAR: Aorta atherosclerotic but normal caliber. PELVIC VISCERA: Prostate mildly enlarged. Seminal vesicles unremarkable. OSSEOUS STRUCTURES: No acute or suspicious osseous abnormalities. Fusion at L4-L5 with incorporated interbody bone graft. CT/CT abdomen pelvis wo IV con IMPRESSION: * No acute findings within the abdomen or pelvis to explain the patient's symptomatology. * Nonspecific submucosal fat deposition throughout the ascending colon, proximal transverse colon and terminal ileum. This can be seen in the setting of obesity, but can also been seen in association with inflammatory bowel disease. No evidence of active bowel inflammation.
[2022-10-04 18:27] VITALS: BP 121/79; PULSE 73; RESP 18; TEMP 36.6; O2SAT 94; BMI 28.7
--- NOTE | 2022-10-04 18:27 | ED.ABDPAIN ---
HPI - Abdominal Pain General Chief Complaint: Abdominal Pain Stated Complaint: abdominal pain Time Seen by Provider: 10/04/22 21:58 Source: patient Mode of arrival: ambulatory Limitations: no limitations History of Present Illness HPI narrative: 62-year-old male came in for evaluation of abdominal pain. Left lower abdominal pain started about 2 years ago and right lower abdominal pain started few weeks ago, describes pain as a constant moderate bilateral lower abdominal pain 5/10, patient declined any other associated symptoms, no nausea, no vomiting, no constipation, no diarrhea, no blood in the stool, no fever, no chills. Love abdominal surgery is anterior abdominal for lumbar fusion surgery. Patient is not on AC. Patient had colonoscopy with no significant finding on 2021. Related Data Home Medications Medication Instructions Recorded Confirmed aspirin 81 mg tablet,delayed 81 mg PO QAM 12/08/20 08/16/22 release atorvastatin 80 mg tablet 80 mg PO BEDTIME 12/08/20 08/16/22 fluoxetine 20 mg capsule 60 mg PO QAM 12/08/20 08/16/22 propranolol 10 mg tablet 10 mg PO BID 12/19/20 08/16/22 levetiracetam 250 mg tablet 250 mg PO BID 07/28/21 08/16/22 melatonin 3 mg tablet 3 mg PO BEDTIME 08/16/22 08/16/22 nitroglycerin 0.4 mg sublingual 0 mg sublingual 08/16/22 08/16/22 tablet Previous Rx's Medication Instructions Recorded famotidine 40 mg tablet 40 mg PO BEDTIME #90 tabs 07/15/22 pantoprazole 40 mg tablet,delayed 40 mg PO BID #60 tabs 08/18/22 release finasteride 5 mg tablet 5 mg PO DAILY 90 days #90 tabs 09/30/22 terazosin 5 mg capsule 5 mg PO BEDTIME 90 days #90 caps 09/30/22 Allergies Allergy/AdvReac Type Severity Reaction Status Date / Time No Known Allergies Allergy Verified 09/30/22 09:07 Review of Systems Review of Systems All other systems are reviewed and are negative Constitutional: Reports as per HPI and Reports no additional constitutional complaints Eyes: Reports as per HPI and Reports no additional eye complaints Reports system reviewed and no additional complaints, except as documented Cardiovascular: Reports as per HPI and Reports no additional cardiovascular complaints Respiratory: Reports as per HPI and Reports no additional respiratory complaints Gastrointestinal: Reports as per HPI and Reports no additional gastrointestinal complaints Genitourinary: Reports no additional female genitourinary complaints Musculoskeletal: Reports no additional musculoskeletal complaints Skin/Breast: Reports system reviewed and no additional complaints, except as docu Psychiatric: Reports no additional psychiatric complaints Endocrine: Reports no additional endocrine complaints Hematologic/Lymphatic: Reports no additional hematologic/lymphatic complaints Allergic/Immunologic: Reports no additional allergic/immunologic complaints Reports system reviewed and no additional complaints, except as documented and Reports Abnormal speech present [facility] Past Medical History Medical History CAD (coronary artery disease) Surgical History History of esophagogastroduodenoscopy (EGD) Hx of colonoscopy Family History Family History Father Cancer Mother Cancer Social History Social History Alcohol intake: never Patient Tobacco Use Status: Never used Tobacco Advance Directives Date on File: 02/25/21 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 Physical Exam ED Vital Signs: Vital Signs - 24 hr 10/04/22 18:27 Temperature 98 F Pulse Rate 73 Respiratory Rate 18 Blood Pressure 121/79 Pulse Oximetry 94 Oxygen Delivery Method Room Air BMI result Body Mass Index 28.7 Vital signs have been reviewed as appeared to be correct. Blood pressure normal. Heart rate normal. Respiration rate normal. Temperature normal. Oxygen saturation normal. Appearance: Alert. Oriented X3. No acute distress. Head: Normal external exam. Normocephalic. Atraumatic. No Caban signs noted. No raccoon eyes noted Eyes: PERRLA. EOMI. Conjunctiva and sclera normal. Eyelids normal. ENT: TM's Normal. Pharynx normal. Uvula midline. Moist mucous membranes. No trismus noted. No drooling noted. No muffled voice noted. Neck: Normal inspection. Neck supple. FROM. No adenopathy. Thyroid Normal. No meningeal signs. No neck mass noted. CVS: Normal heart rate and rhythm. Heart sound normal. No murmurs noted. Pulses normal throughout. Respiratory: No respiratory distress. Painless inspiration. Breath sounds normal. No wheezes/rales/rhonchi noted. Chest nontender. No accessory muscle usage noted or decreased air movement noted. Abdomen: Soft and nontender. Bowel sounds normal in all 4 quadrants. No distention noted. No organomegaly noted. No visible injury noted. Back: No CVA tenderness. Full range of motion noted. Skin: Skin warm and dry. Normal skin color. Normal skin turgor. No rashes/lesions/lacerations noted. Extremities: No lower extremity edema. Extremities exhibit normal range of motion. Extremities nontender. Neuro: Oriented X 3. Cranial nerve exam: II-XII are grossly intact No motor deficit. No sensory deficit. Reflexes normal. Course Course Course Narrative: This is a rapid medical exam. Deferred additional HPI, ROS, PE to primary provider. 62 yo male with history of HLD, BPH, CAD, seizure disorder here with 2 yrs of abdominal pain now more focal in the LLQ x1 month. Will check labs, UA. VSS. Reevaluation(s) Reevaluation #1: 62-year-old male came in with acute on chronic abdominal pain, unremarkable labs, no CT acute finding in the abdomen. Patient had a recent colonoscopy which was unremarkable, will discharge to follow-up with GI/PCP. Medical Decision Making Differential Diagnosis Differential Diagnoses: The differential diagnosis associated with the presentation includes (Kidney stone, acute appendicitis, complicated hernia, colitis, diverticulitis, electrolyte abnormalities, severe anemia, UTI.) Admission/Observation Consideration of admission/observation: Escalation of care including admission/observation considered Lab Data MDM Lab Attestation statement: I reviewed the patient's lab results. 10/04/22 18:39 10/04/22 18:39 Labs: Lab Results 10/04/22 10/04/22 10/04/22 Range/Units 18:39 18:39 20:20 WBC 5.1 (4.8-10.8) X10*3/uL RBC 5.03 (4.60-5.80) X10*6/uL Hgb 13.9 L (14.0-18.0) g/dl Hct 42.9 (42.0-52.0) % MCV 85.3 (80.0-98.0) fL MCH 27.6 (27.0-33.0) pg MCHC 32.4 (31.0-36.0) g/dl RDW 13.1 (11.0-16.0) % Plt Count 185 (160-400) X10*3/uL MPV 9.7 (9.4-12.4) fL Immature Gran % (Auto) 0.8 H (0.0-0.4) % Neut % (Auto) 46.8 (45-73) % Lymph % (Auto) 41.5 H (20-40) % Spencer % (Auto) 8.9 (2-11) % Eos % (Auto) 1.8 (0-4) % Baso % (Auto) 0.2 (0-2) % Lymph # (Auto) 2.1 (1.2-4.9) X10*3/uL Spencer # (Auto) 0.5 (0.1-1.2) X10*3/uL Eos # (Auto) 0.1 (0.0-0.4) X10*3/uL Baso # (Auto) 0.0 (0.0-0.2) X10*3/uL Abs Immat Gran (auto) 0.04 H (0.00-0.03) X10*3/uL Absolute Neuts (auto) 2.4 (2.0-8.3) x10*3/uL Absolute Nucleated RBC 0.000 (0.0-0.012) X10*3/uL Nucleated RBC % (auto) 0.0 (0.0-0.2) /100WBC Sodium 145 (135-145) mmol/L Potassium 4.4 (3.3-5.1) mmol/L Chloride 109 H (96-108) mmol/L Carbon Dioxide 29 (22-29) mmol/L Anion Gap 11 L (12-20) BUN 15 (9-16) mg/dL Creatinine 1.18 (0.5-1.4) mg/dL Estim Creat Clear Calc 73.5 Estimated GFR > 60 Random Glucose 97 (60-115) mg/dL Calcium 9.4 (8.4-10.2) mg/dL Total Bilirubin 1.2 H (0.0-1.0) mg/dL Direct Bilirubin 0.3 (0.0-0.5) mg/dL AST 20 (5-37) U/L ALT 48 H (0-40) U/L Alkaline Phosphatase 98 (39-117) U/L Total Protein 6.8 (6.5-8.0) g/dL Albumin 4.2 (3.5-5.0) g/dL Lipase 25 (8-78) U/L Urine Color Yellow Urine Appearance Clear Urine pH 7.0 (5.0-9.0) Ur Specific [place] >= 1.030 H (1.005-1.025) Urine Protein Negative (Neg-Trace) mg/dL Urine Glucose (UA) Negative (Negative) mg/dL Urine Ketones Trace (Negative) mg/dL Urine Blood Negative (Negative) Urine Nitrite Negative (Negative) Ur Leukocyte Esterase Negative (Negative) Independent Interpretation I performed an independent interpretation of an: CT Scan (Abdomen and pelvis: No acute intra-abdominal pathology.) Radiology Impression Discussion of test interpretation with radiology: I have reviewed the radiologist's reading. Chronic Conditions Patient?s care impacted by: Other (Constipation.) Discharge Plan Discharge Clinical Impression: Abdominal pain Patient Disposition: Home, Self-Care Instructions: Abdominal Pain (ED) Prescriptions: No Action famotidine 40 mg tablet 40 mg PO BEDTIME Qty: 90 3RF pantoprazole 40 mg tablet,delayed release (DR/EC) 40 mg PO BID Qty: 60 3RF fluoxetine 20 mg capsule 60 mg PO QAM atorvastatin 80 mg tablet 80 mg PO BEDTIME aspirin 81 mg tablet,delayed release (DR/EC) 81 mg PO QAM propranolol 10 mg tablet 10 mg PO BID levetiracetam 250 mg tablet 250 mg PO BID nitroglycerin 0.4 mg tablet, sublingual 0 mg sublingual melatonin 3 mg tablet 3 mg PO BEDTIME finasteride 5 mg tablet 5 mg PO DAILY 90 Days Qty: 90 2RF terazosin 5 mg capsule 5 mg PO BEDTIME 90 Days Qty: 90 1RF Referrals: Lorenza Hodge, ANISH [Primary Care Provider] -
[2022-10-04 18:44] LABS: MANUAL DIFF FLAG NO
[2022-10-04 18:59] LABS: Alanine Aminotransferase 48 U/L (0-40); Albumin Level 4.2 g/dL (3.5-5.0); Alkaline Phosphatase 98 U/L (39-117); Anion Gap 11 (12-20); Aspartate Amino Transferase 20 U/L (5-37); Bilirubin Direct 0.3 mg/dL (0.0-0.5); Bilirubin Total 1.2 mg/dL (0.0-1.0); Blood Urea Nitrogen 15 mg/dL (9-16); Calcium 9.4 mg/dL (8.4-10.2); Carbon Dioxide 29 mmol/L (22-29); Chloride 109 mmol/L (96-108); Creatinine Clr Calc Pharmacy 73.5; Estimated Glomerular Filt Rate > 60; Glucose Random 97 mg/dL (60-115); Lipase 25 U/L (8-78); Potassium 4.4 mmol/L (3.3-5.1); Sodium 145 mmol/L (135-145); Total Protein 6.8 g/dL (6.5-8.0)
[2022-10-04 19:07] LABS: Basophils Percent Auto 0.2 % (0-2); Eosinophils Absolute Auto 0.1 X10*3/uL (0.0-0.4); Eosinophils Percent Auto 1.8 % (0-4); Hematocrit 42.9 % (42.0-52.0); Hemoglobin 13.9 g/dl (14.0-18.0); Imm Gran Abs Auto 0.04 X10*3/uL (0.00-0.03); Imm Gran Pct Auto 0.8 % (0.0-0.4); Lymphocytes Absolute Auto 2.1 X10*3/uL (1.2-4.9); Lymphocytes Percent Auto 41.5 % (20-40); Mean Corpuscular HGB Conc 32.4 g/dl (31.0-36.0); Mean Corpuscular Hemoglobin 27.6 pg (27.0-33.0); Mean Corpuscular Volume 85.3 fL (80.0-98.0); Mean Platelet Volume 9.7 fL (9.4-12.4); Monocytes Absolute Auto 0.5 X10*3/uL (0.1-1.2); Monocytes Percent Auto 8.9 % (2-11); Neutrophils Absolute Auto 2.4 x10*3/uL (2.0-8.3); Neutrophils Percent Auto 46.8 % (45-73); Platelet Count 185 X10*3/uL (160-400); Red Blood Count 5.03 X10*6/uL (4.60-5.80); Red Cell Distribution Width 13.1 % (11.0-16.0); White Blood Count 5.1 X10*3/uL (4.8-10.8)
[2022-10-04 20:35] LABS: Appearance Urine Clear; Color Urine Yellow; Glucose Urine UA Negative (Negative); Leukocyte Esterase Urine Negative (Negative); Nitrite Urine Negative (Negative); Specific Gravity - Urine >= 1.030 (1.005-1.025); Urine Blood Negative (Negative); Urine Ketones Trace mg/dL (Negative); Urine Protein Negative (Neg-Trace)
[2022-10-04 21:59] VITALS: BP 134/76; PULSE 54; RESP 18; TEMP 36.7; O2SAT 98
--- NOTE | 2022-10-04 22:16 | MHC.EDTECH ---
This Tech assumed care of this PT. pt changed into hospital gown
--- NOTE | 2022-10-04 23:16 | PC.NURSE ---
hand off to man rn
--- NOTE | 2022-10-04 23:31 | PC.NURSE ---
Took report from off-going RN. Greeted pt and introduced myself. Pt is awake, alert, and oriented X 4. No obvious distress noted on visual assessment. Pt denies any needs at this time. Will continue to monitor.
== END 2022-10-05 00:49 | disposition home or self-care (01) ==
PROVIDERS: Nurse Practitioner Family; Emergency Provider Emergency Medicine; PCP Registered Nurse
DX: R10.30 Lower abdominal pain, unspecified (principal); Z79.82 Long term (current) use of aspirin; Z79.02 Long term (current) use of antithrombotics/antiplatelets; Z79.899 Other long term (current) drug therapy
CPT/HCPCS: 36415; 74176; 80048; 80076; 81003; 83690; 85025; 99284

== ENCOUNTER 2022-11-09 14:10 | Emergency (ER) | payer OTHER, SELFPAY ==
--- NOTE | ~2022-11-09 | XR_ITS ---
EXAMINATION: XR CHEST CLINICAL INFORMATION: Left chest pain. COMPARISON: 03/13/2019 chest radiographs. TECHNIQUE: 2 views of the chest were obtained. FINDINGS: No significant abnormality is noted involving the heart, lungs, mediastinum, bony thorax or soft tissues. XR/XR chest 2V IMPRESSION: No acute cardiopulmonary process.
--- NOTE | 2022-11-09 14:12 | ECG_ITS ---
Test Reason : cp Blood Pressure : / mmHG Vent. Rate : 067 BPM Atrial Rate : 067 BPM P-R Int : 142 ms QRS Dur : 082 ms QT Int : 378 ms P-R-T Axes : 034 003 -03 degrees QTc Int : 399 ms Normal sinus rhythm Nonspecific T wave abnormality Abnormal ECG When compared with ECG of 13-MAR-2019 20:07, No significant change was found Referred By: Nena Jimenez Electronically Signed By:Cirilo Bolivar
[2022-11-09 14:38] VITALS: BP 131/72; PULSE 62; RESP 19; TEMP 36.6; O2SAT 97; BMI 29.8
--- NOTE | 2022-11-09 14:39 | ED.GENADULT ---
[facility] - General Adult General Chief complaint: Chest Pain Stated complaint: Chest Pain Time Seen by Provider: 11/09/22 21:34 Source: patient Mode of arrival: ambulatory History of Present Illness HPI narrative: 62-year-old male who reports chest pain that radiates into his back with blurred vision dizziness for 2 days and associated nausea. Related Data Home Medications Medication Instructions Recorded Confirmed aspirin 81 mg tablet,delayed 81 mg PO QAM 12/08/20 08/16/22 release atorvastatin 80 mg tablet 80 mg PO BEDTIME 12/08/20 08/16/22 fluoxetine 20 mg capsule 60 mg PO QAM 12/08/20 08/16/22 propranolol 10 mg tablet 10 mg PO BID 12/19/20 08/16/22 levetiracetam 250 mg tablet 250 mg PO BID 07/28/21 08/16/22 melatonin 3 mg tablet 3 mg PO BEDTIME 08/16/22 08/16/22 nitroglycerin 0.4 mg sublingual 0 mg sublingual 08/16/22 08/16/22 tablet Previous Rx's Medication Instructions Recorded famotidine 40 mg tablet 40 mg PO BEDTIME #90 tabs 07/15/22 pantoprazole 40 mg tablet,delayed 40 mg PO BID #60 tabs 08/18/22 release finasteride 5 mg tablet 5 mg PO DAILY 90 days #90 tabs 09/30/22 terazosin 5 mg capsule 5 mg PO BEDTIME 90 days #90 caps 09/30/22 Allergies Allergy/AdvReac Type Severity Reaction Status Date / Time No Known Allergies Allergy Verified 11/09/22 14:38 Review of Systems Review of Systems: Pertinent positives and negatives as stated in [facility] Past Medical History Source: nursing notes reviewed Medical History CAD (coronary artery disease) Surgical History History of esophagogastroduodenoscopy (EGD) Hx of colonoscopy Family History Family History Father Cancer Mother Cancer Social History Social History Alcohol intake: never Patient Tobacco Use Status: Never used Tobacco Smoked in Last 30 Days: No Use of substances other than those prescribed or required for medical reasons: No Advance Directives: Yes Advance Directives on File: Yes Advance Directives Date on File: 02/25/21 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 Physical Exam ED Vital Signs: Vital Signs - 24 hr 11/09/22 14:38 11/09/22 17:46 Temperature 98 F 96.8 F Pulse Rate 62 56 Respiratory Rate 19 18 Blood Pressure 131/72 130/78 Pulse Oximetry 97 99 Oxygen Delivery Method Room Air BMI result Body Mass Index 29.8 VITAL SIGNS: Reviewed. GENERAL: Well developed, well nourished, in no acute distress. HEAD: Normocephalic/atraumatic EYES: PERRLA, EOMI EARS: Ext canals without abnormality NOSE: Nares patent bilateral OROPHARYNX: no oral lesions noted, posterior pharynx clear NECK: Supple, no adenopathy LUNGS: Normal breath sounds. No adventitious sounds or accessory muscle use. SpO2<99>; CHEST WALL: There is reproducible chest pain to the anterior left chest wall without crepitus or deformity. CARDIOVASCULAR: Regular rate and rhythm without noted murmurs ABDOMEN: Soft, non-tender, non-distended with bowel sounds. MUSCULOSKELETAL: No tenderness, deformities, or effusions noted on gross inspection. EXTREMITIES: No cyanosis, clubbing or edema. SKIN: Inspection of the skin reveals no rashes NEUROLOGIC: Alert and oriented x 4. Strength and sensation to light touch were grossly intact x 4. Course Course Course Narrative: This is an RME: Additional HPI, ROS, PE not included below will be deferred to primary provider. Patient is a 62-year-old male with history of CAD, BPH, high cholesterol, pancreatitis presenting to the emergency department with left anterior chest pain, weakness, dizziness, vision changes, shortness of breath worse with exertion for two days. States pain radiates through to his back. Reports nausea. States he is seeing lights, worse in left eye. Plan:EKG, labs, CXR Medications Administered Discontinued Medications Generic Name Dose Route Start Last Admin Trade Name Freq PRN Reason Stop Dose Admin Acetaminophen 975 mg 11/09/22 23:29 11/09/22 23:35 Acetaminophen 325 Mg Tablet PO 11/09/22 23:30 975 mg ONCE ONE Administration Ibuprofen 400 mg 11/09/22 23:29 11/09/22 23:34 Ibuprofen 400 Mg Tablet PO 11/09/22 23:30 400 mg ONCE ONE Administration Sucralfate 1 gm 11/09/22 23:27 11/09/22 23:34 Sucralfate Oral Suspension 1 Gm/10 Ml Oral.Susp PO 11/09/22 23:28 1 gm ONCE ONE Administration Medical Decision Making Medical Decision Making MDM Narrative: 62-year-old male with history and clinical presentation after review of all investigations my interpretation is that patient has anterior chest wall discomfort that is reproducible and not associated with cardiopulmonary etiology, no evidence to suggest of pancreatitis and given prior history there is a possibility of gastritis/ulcer. Patient received combination analgesics as well as care pain for suspected gastritis. On re-evaluation he is feeling somewhat improved and he was strongly encouraged to follow-up with the primary care provider. Differential Diagnosis Please see the discussion above Lab Data Please see the discussion above 11/09/22 14:55 11/09/22 14:55 Labs: Lab Results 11/09/22 11/09/22 11/09/22 Range/Units 14:55 14:55 14:55 WBC 4.1 L (4.8-10.8) X10*3/uL RBC 5.19 (4.60-5.80) X10*6/uL Hgb 14.0 (14.0-18.0) g/dl Hct 44.2 (42.0-52.0) % MCV 85.2 (80.0-98.0) fL MCH 27.0 (27.0-33.0) pg MCHC 31.7 (31.0-36.0) g/dl RDW 13.4 (11.0-16.0) % Plt Count 168 (160-400) X10*3/uL MPV 9.2 L (9.4-12.4) fL Immature Gran % (Auto) 0.2 (0.0-0.4) % Neut % (Auto) 42.9 L (45-73) % Lymph % (Auto) 44.7 H (20-40) % [place] % (Auto) 9.8 (2-11) % Eos % (Auto) 2.2 (0-4) % Baso % (Auto) 0.2 (0-2) % Lymph # (Auto) 1.8 (1.2-4.9) X10*3/uL [place] # (Auto) 0.4 (0.1-1.2) X10*3/uL Eos # (Auto) 0.1 (0.0-0.4) X10*3/uL Baso # (Auto) 0.0 (0.0-0.2) X10*3/uL Abs Immat Gran (auto) 0.01 (0.00-0.03) X10*3/uL Absolute Neuts (auto) 1.8 L (2.0-8.3) x10*3/uL Absolute Nucleated RBC 0.000 (0.0-0.012) X10*3/uL Nucleated RBC % (auto) 0.0 (0.0-0.2) /100WBC PT 11.3 (10.0-13.1) SEC INR 1.0 (0.9-1.1) Sodium 143 (135-145) mmol/L Potassium 4.3 (3.3-5.1) mmol/L Chloride 109 H (96-108) mmol/L Carbon Dioxide 27 (22-29) mmol/L Anion Gap 11 L (12-20) BUN 20 H (9-16) mg/dL Creatinine 1.06 (0.5-1.4) mg/dL Estim Creat Clear Calc 80.8 Estimated GFR > 60 Random Glucose 89 (60-115) mg/dL Calcium 9.7 (8.4-10.2) mg/dL Total Bilirubin 1.0 (0.0-1.0) mg/dL AST 20 (5-37) U/L ALT 36 (0-40) U/L Alkaline Phosphatase 92 (39-117) U/L Troponin I High Sens (<3.5-35.0) ng/L Total Protein 6.7 (6.5-8.0) g/dL Albumin 4.1 (3.5-5.0) g/dL Lipase 28 (8-78) U/L Urine Color Urine Appearance Urine pH (5.0-9.0) Ur Specific [place] (1.005-1.025) Urine Protein (Neg-Trace) mg/dL Urine Glucose (UA) (Negative) mg/dL Urine Ketones (Negative) mg/dL Urine Blood (Negative) Urine Nitrite (Negative) Ur Leukocyte Esterase (Negative) 11/09/22 11/09/22 11/09/22 Range/Units 14:55 18:07 22:36 WBC (4.8-10.8) X10*3/uL RBC (4.60-5.80) X10*6/uL Hgb (14.0-18.0) g/dl Hct (42.0-52.0) % MCV (80.0-98.0) fL MCH (27.0-33.0) pg MCHC (31.0-36.0) g/dl RDW (11.0-16.0) % Plt Count (160-400) X10*3/uL MPV (9.4-12.4) fL Immature Gran % (Auto) (0.0-0.4) % Neut % (Auto) (45-73) % Lymph % (Auto) (20-40) % [place] % (Auto) (2-11) % Eos % (Auto) (0-4) % Baso % (Auto) (0-2) % Lymph # (Auto) (1.2-4.9) X10*3/uL [place] # (Auto) (0.1-1.2) X10*3/uL Eos # (Auto) (0.0-0.4) X10*3/uL Baso # (Auto) (0.0-0.2) X10*3/uL Abs Immat Gran (auto) (0.00-0.03) X10*3/uL Absolute Neuts (auto) (2.0-8.3) x10*3/uL Absolute Nucleated RBC (0.0-0.012) X10*3/uL Nucleated RBC % (auto) (0.0-0.2) /100WBC PT (10.0-13.1) SEC INR (0.9-1.1) Sodium (135-145) mmol/L Potassium (3.3-5.1) mmol/L Chloride (96-108) mmol/L Carbon Dioxide (22-29) mmol/L Anion Gap (12-20) BUN (9-16) mg/dL Creatinine (0.5-1.4) mg/dL Estim Creat Clear Calc Estimated GFR Random Glucose (60-115) mg/dL Calcium (8.4-10.2) mg/dL Total Bilirubin (0.0-1.0) mg/dL AST (5-37) U/L ALT (0-40) U/L Alkaline Phosphatase (39-117) U/L Troponin I High Sens < 2.7 (<3.5-35.0) ng/L Total Protein (6.5-8.0) g/dL Albumin (3.5-5.0) g/dL Lipase (8-78) U/L Urine Color Dark Yellow Yellow Urine Appearance Clear Clear Urine pH 5.5 5.5 (5.0-9.0) Ur Specific [place] >= 1.030 H 1.025 (1.005-1.025) Urine Protein Trace Trace (Neg-Trace) mg/dL Urine Glucose (UA) Negative Negative (Negative) mg/dL Urine Ketones Trace Negative (Negative) mg/dL Urine Blood Negative Negative (Negative) Urine Nitrite Negative Negative (Negative) Ur Leukocyte Esterase Negative Negative (Negative) Independent Interpretation I performed an independent interpretation of an: EKG Interpretation: Normal sinus rhythm, HR-67, no STEMI, NE/QRS/QTC is within normal limits. Radiology Impression Radiologist Impression: My interpretation is in agreement with radiology's impression. External Record Review External record reviewed: Prior outpatient labs Discharge Plan Discharge Clinical Impression: Gastroesophageal reflux disease, Gastritis Patient Disposition: Home, Self-Care Instructions: Gastritis (ED), Diet for Stomach Ulcers and Gastritis (ED), Gastroesophageal Reflux Disease (ED) Additional Instructions: 1. Reanudar todos los medicamentos caseros seg?n lo prescrito. Aumente la cantidad de ingesta de agua dionicio las pr?ximas 24-48 horas. 2. Le recomiendo que utilice Mylanta de venta quintin antes de cada comida. 3. Realice un seguimiento con sy proveedor de atenci?n primaria en los pr?ximos 2 a 3 d?as para sameer reevaluaci?n y un manejo ambulatorio adicional. Regrese a la irvin de emergencias si los s?ntomas empeoran. 1. Resume all home medications as prescribed. Increase the amount of water intake over the next 24-48 hours. 2. I highly recommend that you to utilize [id number] Mylanta prior to each meal. 3. Follow-up with your primary care provider in the next 2-3 days for re-evaluation and further outpatient management. Return to the ER for any worsening symptoms. Prescriptions: No Action famotidine 40 mg tablet 40 mg PO BEDTIME Qty: 90 3RF pantoprazole 40 mg tablet,delayed release (DR/EC) 40 mg PO BID Qty: 60 3RF fluoxetine 20 mg capsule 60 mg PO QAM atorvastatin 80 mg tablet 80 mg PO BEDTIME aspirin 81 mg tablet,delayed release (DR/EC) 81 mg PO QAM propranolol 10 mg tablet 10 mg PO BID levetiracetam 250 mg tablet 250 mg PO BID nitroglycerin 0.4 mg tablet, sublingual 0 mg sublingual melatonin 3 mg tablet 3 mg PO BEDTIME finasteride 5 mg tablet 5 mg PO DAILY 90 Days Qty: 90 2RF terazosin 5 mg capsule 5 mg PO BEDTIME 90 Days Qty: 90 1RF Referrals: Lorenza Hodge FNP [Primary Care Provider] - Print Language: [place]
[2022-11-09 14:58] LABS: MANUAL DIFF FLAG NO
[2022-11-09 15:00] LABS: Basophils Percent Auto 0.2 % (0-2); Eosinophils Absolute Auto 0.1 X10*3/uL (0.0-0.4); Eosinophils Percent Auto 2.2 % (0-4); Hematocrit 44.2 % (42.0-52.0); Imm Gran Abs Auto 0.01 X10*3/uL (0.00-0.03); Imm Gran Pct Auto 0.2 % (0.0-0.4); Lymphocytes Absolute Auto 1.8 X10*3/uL (1.2-4.9); Lymphocytes Percent Auto 44.7 % (20-40); Mean Corpuscular HGB Conc 31.7 g/dl (31.0-36.0); Mean Corpuscular Volume 85.2 fL (80.0-98.0); Mean Platelet Volume 9.2 fL (9.4-12.4); Monocytes Absolute Auto 0.4 X10*3/uL (0.1-1.2); Monocytes Percent Auto 9.8 % (2-11); Neutrophils Absolute Auto 1.8 x10*3/uL (2.0-8.3); Neutrophils Percent Auto 42.9 % (45-73); Platelet Count 168 X10*3/uL (160-400); Red Blood Count 5.19 X10*6/uL (4.60-5.80); Red Cell Distribution Width 13.4 % (11.0-16.0); White Blood Count 4.1 X10*3/uL (4.8-10.8)
[2022-11-09 15:07] LABS: Prothrombin Time 11.3 SEC (10.0-13.1)
[2022-11-09 15:14] LABS: Alanine Aminotransferase 36 U/L (0-40); Albumin Level 4.1 g/dL (3.5-5.0); Alkaline Phosphatase 92 U/L (39-117); Anion Gap 11 (12-20); Aspartate Amino Transferase 20 U/L (5-37); Blood Urea Nitrogen 20 mg/dL (9-16); Calcium 9.7 mg/dL (8.4-10.2); Carbon Dioxide 27 mmol/L (22-29); Chloride 109 mmol/L (96-108); Creatinine Clr Calc Pharmacy 80.8; Estimated Glomerular Filt Rate > 60; Glucose Random 89 mg/dL (60-115); Potassium 4.3 mmol/L (3.3-5.1); Sodium 143 mmol/L (135-145); Total Protein 6.7 g/dL (6.5-8.0)
[2022-11-09 15:24] LABS: Troponin-I High Sensitivity < 2.7 ng/L (<3.5-35.0)
[2022-11-09 17:46] VITALS: BP 130/78; PULSE 56; RESP 18; TEMP 36; O2SAT 99
[2022-11-09 19:00] LABS: Appearance Urine Clear; Color Urine Dark Yellow; Glucose Urine UA Negative (Negative); Leukocyte Esterase Urine Negative (Negative); Nitrite Urine Negative (Negative); PH 5.5 (5.0-9.0); Specific Gravity - Urine >= 1.030 (1.005-1.025); Urine Blood Negative (Negative); Urine Ketones Trace mg/dL (Negative); Urine Protein Trace mg/dL (Neg-Trace)
[2022-11-09 22:46] LABS: Appearance Urine Clear; Color Urine Yellow; Glucose Urine UA Negative (Negative); Leukocyte Esterase Urine Negative (Negative); Nitrite Urine Negative (Negative); PH 5.5 (5.0-9.0); Specific Gravity - Urine 1.025 (1.005-1.025); Urine Blood Negative (Negative); Urine Ketones Negative (Negative); Urine Protein Trace mg/dL (Neg-Trace)
[2022-11-09] MEDS: Ibuprofen 400 MG TABLET PO (23:34)
[2022-11-09] MEDS: Sucralfate Oral Suspension 1 GM/10 ML ORAL.SUSP PO (23:34)
[2022-11-09] MEDS: Acetaminophen 325 MG TABLET 975 MG PO (23:35)
[2022-11-09 23:58] LABS: Lipase 28 U/L (8-78)
== END 2022-11-10 00:25 | disposition home or self-care (01) ==
PROVIDERS: Registered Nurse Emergency; Emergency Provider Student in an Organized Health Care Education/Training Program; PCP Registered Nurse
DX: K21.9 Gastro-esophageal reflux disease without esophagitis (principal); K29.70 Gastritis, unspecified, without bleeding; R07.89 Other chest pain; H53.8 Other visual disturbances; R42 Dizziness and giddiness; Z79.899 Other long term (current) drug therapy
CPT/HCPCS: 36415; 71046; 80053; 81003; 83690; 84484; 85025; 85610; 93005; 99283; 99285

== ENCOUNTER 2022-11-15 12:53 | Outpatient (AMB) | payer OTHER, SELFPAY ==
--- NOTE | 2022-11-15 12:59 | MHC.OFFVIS ---
Intake Vital Signs 11/15/22 13:03 Height 5 ft 9 in Weight 198 lb 6.656 oz BMI 29.3 BP 118/67 Blood Pressure Location Lt brachial Position Sitting Pulse 65 Intake Visit Reasons: 6 Month follow up Abd.pain Intake Note: Inderjit presents in the office as a 6 month follow up abd pain. CC: He is having concerns - he is here today because his pancreas was not good but now he feels like a mass on the llq - he was told that it could be stool. HE keeps having those symptoms - it is now on both sides. He is a little concerned of what it could be - a month ago his kidneys started hurting. Quality Control Projectionist Required: Yes Quality Control Projectionist Name: Mai Allergies No Known Allergies Allergy (Verified 11/15/22 13:05) HPI 6 Month follow up Abd.pain HPI Details LAST VISIT Left lower quadrant abdominal pain Left lower quadrant pain most likely related to patient being constipated, does not feel like he empties his bowels completely. He can continue current medications and I will add MiraLax. Patient was also encouraged to drink plenty fluids and increase activity to promote better bowel motility. Chronic idiopathic constipation As mentioned above patient still is constipated. I will add MiraLax. Patient was encouraged to take the medications every day in order for him to have a good bowel movement. Hemorrhoid Will refill Proctosol. Patient reports that that helps. Patient was also instructed to drink plenty fluids, he can do Sitz baths to help with comfort. Patient was encouraged to take Colace to help soften the stools. I will see patient in 6 months, sooner on as needed basis. Patient is agreeable to this plan and verbalizes understanding of instructions. He was given the opportunity to ask questions and all questions answered. ? Thank you for allowing me to participate in his care Plan Medications New polyethylene glycol 3350 (Miralax) 17 grams PO DAILY 510 grams 2RF Refilled hydrocortisone 2.5% (Proctosol HC) 1 appl ID BID-QID PRN 30 grams 4RF hemorrhoids K64.9 sennosides (Natural Senna Laxative) 17.2 mg (2 x 8.6 mg) PO BEDTIME 180 tabs 3RF constipation K59.00 docusate sodium 100 mg PO BEDTIME 180 caps 3RF K59.00 plecanatide (Trulance) 3 mg PO DAILY 90 tabs 3RF K59.09 Discontinued methylcellulose (laxative) take it with full glass of water Discontinued Reason: Doctor's Order 500 mg PO DAILY 30 tabs 2RF K59.00 TODAY'S VISIT: Patient is here today for follow-up. Patient has been seen in the ER for abdominal discomfort in September and in October. Patient continues to be constipated. Pain and left lower quadrant and sometimes in the right lower quadrant. Labs and CT scan showed no acute processes. Patient does not have a diarrhea. Takes medications to help him move his bowels. Does not feel like he empties his bowels completely. Patient denies melena, hematochezia, unintentional weight loss or ribbon like stools. Patient will be due for colonoscopy in 2023. Patient denies dyspepsia, dysphagia or odynophagia. Patient is taking famotidine at bedtime and pantoprazole twice a day. Patient is taking Trulance to help him move his bowels. Patient also is taking MiraLax in the morning. [facility] Medical History CAD (coronary artery disease) Surgical History History of esophagogastroduodenoscopy (EGD) Hx of colonoscopy Family History Father Cancer Mother Cancer Social History Alcohol intake: never Patient Tobacco Use Status: Never used Tobacco Advance Directives Date on File: 02/25/21 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 Review of Systems Const Denies weight gain and Denies weight loss ENT Reports no additional complaints, Denies dysphagia and Denies odynophagia Card Reports no additional complaints Resp Reports no additional complaints GI Reports abdominal pain, Denies belching, Denies melena, Reports bloating, Denies change in bowel habits, Denies dysphagia, Denies excessive flatus, Denies dyspepsia, Reports heartburn, Denies diarrhea, Denies loose stools, Denies nausea, Denies odynophagia and Denies vomiting Reports no additional complaints Musc Reports no additional complaints Neuro Reports no additional complaints Psych Reports no additional complaints Endo Reports no additional complaints Physical Exam Vital Signs: Last Vital Signs Pulse 65 11/15/22 13:03 BP 118/67 11/15/22 13:03 BMI result Body Mass Index 29.3 Results Reviewed Results Reviewed: CT OF ABDOMEN 11/09/2022 FINDINGS: LUNG BASES: The visualized lung bases are unremarkable.? LIVER, GALLBLADDER, AND BILIARY TREE: The liver is normal in size, shape, and attenuation. No focal hepatic lesion or biliary ductal dilatation is present. Gallbladder unremarkable.? PANCREAS: Unremarkable.? SPLEEN: Unremarkable.? ADRENAL GLANDS: Unremarkable.? KIDNEYS AND URETERS: The kidneys are normal in size, shape, and attenuation. No hydronephrosis, hydroureter, or calculi seen. No perinephric stranding. ? BLADDER: Unremarkable.? GASTROINTESTINAL TRACT: No intestinal obstruction or inflammation. Normal appendix. Stomach and small bowel unremarkable.? Submucosal fat deposition and present throughout the ascending colon, proximal transverse colon and terminal ileum. ABDOMINAL WALL: No significant hernia is appreciated.? LYMPH NODES: No lymphadenopathy. Surgical clips present along the left iliac vasculature. VASCULAR: Aorta atherosclerotic but normal caliber. PELVIC VISCERA: Prostate mildly enlarged. Seminal vesicles unremarkable.? OSSEOUS STRUCTURES: No acute or suspicious osseous abnormalities. Fusion at L4-L5 with incorporated interbody bone graft.? CT/CT abdomen pelvis wo IV con IMPRESSION: *? No acute findings within the abdomen or pelvis to explain the patient's symptomatology. *? Nonspecific submucosal fat deposition throughout the ascending colon, proximal transverse colon and terminal ileum. This can be seen in the setting of obesity, but can also been seen in association with inflammatory bowel disease. No evidence of active bowel inflammation. ? Assessment & Plan Assessment & Plan (1) Left lower quadrant abdominal pain: Code(s): R10.32 - Left lower quadrant pain Plan: Patient continues to have occasional left lower quadrant pain. Sometimes reports right lower quadrant. Exam negative for tenderness. Continue taking food and and MiraLax. Patient was encouraged bring his medication with him to next visit (2) GERD (gastroesophageal reflux disease): Code(s): K21.9 - Gastro-esophageal reflux disease without esophagitis Qualifiers: Esophagitis presence: esophagitis presence not specified Qualified Code(s): K21.9 - Gastro-esophageal reflux disease without esophagitis Plan: Patient was encouraged to avoid dietary triggers and late night snacking. Staying upright for minimum 3 hours after meals discussed with patient. Patient will continue taking pantoprazole twice a day before breakfast and before dinner. (3) Chronic idiopathic constipation: Code(s): K59.04 - Chronic idiopathic constipation Plan: Continue current treatment. Patient was also encouraged to increase fluid intake and activity to promote better bowel motility. I will see him in 5 weeks, sooner on as needed basis. Patient is agreeable to this plan and verbalizes understanding of instructions. He was given the opportunity to ask questions and all questions answered Thank for allowing me participate in his care Coding Level of Care Code Est Pt Level 3 (87916) Diagnoses Left lower quadrant abdominal pain R10.32 GERD (gastroesophageal reflux disease) K21.9 Esophagitis presence: esophagitis presence not specified Chronic idiopathic constipation K59.04 Time Spent (min) 30 Comment 20 minutes spent with patient and additional 10 minutes spent reviewing his records
[2022-11-15 13:03] VITALS: BP 118/67; PULSE 65; BMI 29.3
== END 2022-11-15 13:51 | disposition home or self-care (01) ==
PROVIDERS: PCP Registered Nurse; Visit Provider Nurse Practitioner Family
DX: R10.32 Left lower quadrant pain (principal); K21.9 Gastro-esophageal reflux disease without esophagitis; K59.04 Chronic idiopathic constipation
CPT/HCPCS: 99213

== ENCOUNTER → 2022-11-15 12:53 | Outpatient (BNVA) | payer OTHER, SELFPAY | PROVIDERS: PCP Registered Nurse; Visit Provider Nurse Practitioner Family | DX: R10.32 Left lower quadrant pain (principal); K59.04 Chronic idiopathic constipation; K21.9 Gastro-esophageal reflux disease without esophagitis | CPT/HCPCS: 99212 ==

== ENCOUNTER 2022-11-25 08:36 | Outpatient (REF) | payer OTHER, SELFPAY ==
[2022-11-25 12:08] LABS: B Type Natriuretic Peptide 20 pg/mL (<100)
== END 2022-11-25 08:37 | disposition home or self-care (01) ==
LOC: HO.HHCL 08:36
PROVIDERS: Visit Provider Registered Nurse
DX: M79.89 Other specified soft tissue disorders (principal); R10.9 Unspecified abdominal pain
CPT/HCPCS: 36415; 83880

== ENCOUNTER 2022-12-06 13:34 | Outpatient (REF) | payer OTHER, SELFPAY ==
--- NOTE | ~2022-12-06 | US_ITS ---
EXAMINATION: US RETROPERITONEAL LIMITED (RENAL ONLY) CLINICAL INFORMATION: Flank pain. COMPARISON: Abdominal ultrasound 09/15/2022. TECHNIQUE: Real-time imaging of the kidneys. FINDINGS: RIGHT KIDNEY: 10.5 x 4.6 x 4.4 cm (SAG x AP x TRV). The kidney is normal in size, contour, and echogenicity. Renal cortical thickness is normal. No calculi or focal parenchymal lesions. No hydronephrosis. LEFT KIDNEY: 11.7 x 5.5 x 4.4 cm (SAG x AP x TRV). The kidney is normal in size, contour, and echogenicity. Renal cortical thickness is normal. No calculi or focal parenchymal lesions. No hydronephrosis. Hypertrophied column of Charan. US/US renal BI IMPRESSION: No hydronephrosis or nephrolithiasis.
== END 2022-12-06 13:35 | disposition home or self-care (01) ==
LOC: HO.US 13:34
PROVIDERS: PCP Registered Nurse; Visit Provider Registered Nurse
DX: R10.9 Unspecified abdominal pain (principal)
CPT/HCPCS: 76775

== ENCOUNTER 2022-12-20 12:49 | Outpatient (AMB) | payer OTHER, SELFPAY ==
--- NOTE | 2022-12-20 12:56 | MHC.OFFVIS ---
Intake Vital Signs 12/20/22 12:57 Height 5 ft 9 in Weight 197 lb 8.547 oz BMI 29.2 BP 110/69 Blood Pressure Location Lt brachial Pulse 64 Intake Visit Reasons: 5 WEEK FOLLOW UP Intake Note: Inderjit presents in office as a est.patient for 5 week for CIC. PT CC: Pt continues to feel he has a mass from LLQ abdomen and reports he continues to feel the same. Pt states he was not called for CT scan ordered. pt denies any other GI Issues Certified Master Safe Technician Required: Yes Certified Master Safe Technician Name: Mai Allergies No Known Allergies Allergy (Verified 11/15/22 13:05) HPI 5 WEEK FOLLOW UP HPI Details LAST VISIT: Left lower quadrant abdominal pain Patient continues to have occasional left lower quadrant pain. Sometimes reports right lower quadrant. Exam negative for tenderness. Continue taking food and and MiraLax. Patient was encouraged bring his medication with him to next visit GERD (gastroesophageal reflux disease) Patient was encouraged to avoid dietary triggers and late night snacking. Staying upright for minimum 3 hours after meals discussed with patient. Patient will continue taking pantoprazole twice a day before breakfast and before dinner. Chronic idiopathic constipation Continue current treatment. Patient was also encouraged to increase fluid intake and activity to promote better bowel motility. I will see him in 5 weeks, sooner on as needed basis. Patient is agreeable to this plan and verbalizes understanding of instructions. He was given the opportunity to ask questions and all questions answered ? TODAY'S VISIT: Patient is here today for follow-up. Patient recently seen surgeon for left lower quadrant pain. No hernias identified. Possibility that his pain is related to herniation in his disc. Patient has left lower back pain. Patient reports that pain is worse with movements. Sometimes he will have a pain in his pelvic area. Patient denies any urinary frequency or burning when urinating. Patient reports that he is moving his bowels well and is taking Trulance daily. Patient states that his symptoms of acid reflux are currently suppressed with pantoprazole that he takes twice a day before breakfast and before dinner and famotidine. Patient denies any nausea or vomiting. Denies any other GI concerning symptoms. Denies melena, hematochezia, unintentional weight loss or ribbon like stools. Denies dyspepsia, dysphagia or odynophagia patient will be due to go for colonoscopy next year. FORMERLY [facility], [facility]–1983 Medical History CAD (coronary artery disease) Surgical History History of esophagogastroduodenoscopy (EGD) Hx of colonoscopy Family History Father Cancer Mother Cancer Social History Alcohol intake: never Patient Tobacco Use Status: Never used Tobacco Advance Directives Date on File: 02/25/21 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 Review of Systems Const Denies weight gain and Denies weight loss ENT Reports no additional complaints, Denies dysphagia and Denies odynophagia Card Reports no additional complaints Resp Reports no additional complaints GI Reports abdominal pain (LLQ), Denies belching, Denies melena, Denies bloating, Denies change in bowel habits, Denies dysphagia, Denies excessive flatus, Denies dyspepsia, Denies heartburn, Denies diarrhea, Denies loose stools, Denies nausea, Denies odynophagia and Denies vomiting Reports no additional complaints Musc Reports no additional complaints Neuro Reports no additional complaints Psych Reports no additional complaints Endo Reports no additional complaints Physical Exam Vital Signs: Last Vital Signs Pulse 64 12/20/22 12:57 BP 110/69 12/20/22 12:57 BMI result Body Mass Index 29.2 Const General: healthy appearing, no acute distress and well developed Nutritional Appearance: obese Orientation/consciousness: patient oriented x3 HEENT Head: Yes normal to inspection, Yes normocephalic and Yes atraumatic Face and sinus: Yes normal facial exam Mouth: Normal oral and palatal mucosa present Throat: Yes posterior oropharynx normal, Yes tonsils normal and Yes uvula midline Eyes General: appearance normal, both eyes and all related structures Neck Neck: Yes normal visual inspection, Yes full ROM and Yes trachea midline Thyroid: Thyroid normal Resp Effort & Inspection: normal respiratory effort, able to speak in complete sentences, no tracheal deviation and symmetric chest movement Auscultation: clear to auscultation bilaterally Cardio Rate: regular rate Heart sounds: S1 normal heart sound present and S2 normal heart sound present GI Inspection: Yes normal to inspection, No distended and Yes obesity Palpation (GI): Soft to palpation, not firm, nontender and No hepatosplenomegaly present Auscultation: normal bowel sounds General: Yes no CVA tenderness Back/Spine/Pelvis Back: no CVA tenderness Skin General skin exam: elasticity normal, turgor normal and dry skin Neuro General: patient oriented x3 Psych Appearance: grossly normal Mental Status: mental status grossly normal Speech and movement: Normal speech and movement present Affect: normal affect Assessment & Plan Assessment & Plan (1) Left lower quadrant abdominal pain: Code(s): R10.32 - Left lower quadrant pain Plan: Left lower quadrant pain most likely related to muscular or neurological pain. Patient was encouraged to follow-up with his PCP regarding referral to neurosurgeon as recommended also by surgeon that patient recently saw for evaluation of his left lower quadrant pain. On exam patient has benign exam no tenderness, no mass, no swelling, no guarding. (2) GERD (gastroesophageal reflux disease): Code(s): K21.9 - Gastro-esophageal reflux disease without esophagitis Qualifiers: Esophagitis presence: without esophagitis Qualified Code(s): K21.9 - Gastro-esophageal reflux disease without esophagitis Plan: Continue PPI therapy twice a day. May use famotidine at night time if need to. Patient was encouraged to avoid dietary triggers and late night snacking. Staying upright for minimum 3 hours after meals discussed with patient. (3) Chronic idiopathic constipation: Code(s): K59.04 - Chronic idiopathic constipation Plan: Continue Trulance. Increase fluid intake and activity to promote better bowel motility. I will see patient in 6 months, sooner on as needed basis. Patient is agreeable to this plan and verbalizes understanding of instructions. He was given the opportunity to ask questions and all questions answered. Thank you for allowing me to participate in his care Coding Level of Care Code Est Pt Level 4 (19588) Diagnoses Left lower quadrant abdominal pain R10.32 GERD (gastroesophageal reflux disease) K21.9 Esophagitis presence: without esophagitis Chronic idiopathic constipation K59.04 Time Spent (min) 35 Comment 20 minutes spent with patient and additional 15 minutes spent reviewing his records
[2022-12-20 12:57] VITALS: BP 110/69; PULSE 64; BMI 29.2
== END 2022-12-20 13:28 | disposition home or self-care (01) ==
PROVIDERS: PCP Registered Nurse; Visit Provider Nurse Practitioner Family
DX: R10.32 Left lower quadrant pain (principal); K21.9 Gastro-esophageal reflux disease without esophagitis; K59.04 Chronic idiopathic constipation
CPT/HCPCS: 99214

== ENCOUNTER → 2022-12-20 12:49 | Outpatient (BNVA) | payer OTHER, SELFPAY | PROVIDERS: PCP Registered Nurse; Visit Provider Nurse Practitioner Family | DX: K59.04 Chronic idiopathic constipation (principal); K21.9 Gastro-esophageal reflux disease without esophagitis; R10.32 Left lower quadrant pain | CPT/HCPCS: 99212 ==

== ENCOUNTER 2023-01-28 08:09 | Outpatient (REF) | payer OTHER, SELFPAY ==
[2023-01-28 11:35] LABS: Prostate Specific Antigen 2.31 ng/mL (<0.05-4.0)
== END 2023-01-28 08:10 | disposition home or self-care (01) ==
LOC: HO.LAB 08:09
PROVIDERS: Visit Provider Nurse Practitioner Family
DX: Z12.5 Encounter for screening for malignant neoplasm of prostate (principal); N40.0 Benign prostatic hyperplasia without lower urinary tract symptoms
CPT/HCPCS: 36415; 84153

== ENCOUNTER 2023-01-31 08:26 | Outpatient (AMB) | payer OTHER, SELFPAY ==
--- NOTE | 2023-01-31 08:32 | A.OFFVIS_ITS ---
Intake Intake Visit Reasons: 4m/labs Intake Note: Patient presents for follow up for BPH/labs Urology Medications: d/c tamsulosin, finasteride, terazosin Blood Thinner: none PVR: 34ml's Torpedo Man Required: Yes Accompanied by: Self / Same As Patient Allergies No Known Allergies Allergy (Verified 01/31/23 20:15) Medication List - Last Reconciled 01/31/23 by ANISH Jain- aspirin 81 mg PO QAM atorvastatin 80 mg PO BEDTIME famotidine 40 mg PO BEDTIME finasteride 5 mg PO DAILY 90 days fluoxetine 80 mg PO DAILY levetiracetam 500 mg PO BID melatonin 3 mg PO BEDTIME ibyxxsfymdqx-ocfg-phoze acid 18-400 mg-mcg (Certavite-Antioxidant) 1 tab PO QAM nitroglycerin 0 mg sublingual pantoprazole 40 mg PO BID plecanatide (Trulance) 3 mg PO DAILY polyethylene glycol 3350 17 grams PO QAM propranolol 10 mg PO BID terazosin 5 mg PO BEDTIME 90 days trazodone 25 mg PO BEDTIME PRN HPI HPI Comments History of Present Illness Details Inderjit is a pleasant 62-year-old male patient of Dr. Christiansen. He has a PMH of CAD. He presents to the office today for follow-up of his lower urinary tract symptoms. Workup has included a retroperitoneal ultrasound noting the bladder is well distended. There is mild diffuse bladder wall thickening. No stone or masses seen. Bilateral ureteral jets are demonstrated. Pre void bladder volume is approximately 210 mL. Postvoid above item is 2 mL. The kidneys are normal with no calculi hydronephrosis or lesions noted. Flomax was discontinued and patient was started on terazosin 5 mg daily. When asked he reports significant improvement in lower urinary tract symptoms on terazosin 5 mg daily and finasteride 5 mg daily. When asked he denies urinary urgency, incontinence, hematuria, dysuria, foul smelling urine, changes to urinary stream, flank pain, fever, and or chills. He does continue to report urinary dribbling at times post urination. In office urinalysis results reviewed with the patient today. PVR 34mls'. When asked he otherwise denies any other urinary issues or concerns at this time. PSAs are as follows: 09/05--2.5 02/05--2.3 PFSH Medical History CAD (coronary artery disease) Surgical History Hx of colonoscopy History of esophagogastroduodenoscopy (EGD) Family History Father Cancer Mother Cancer Social History Alcohol intake: never Patient Tobacco Use Status: Never used Tobacco Advance Directives Date on File: 02/25/21 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 Review of Systems Const Reports as per HPI Eyes Reports no additional complaints ENT Reports no additional complaints Card Reports as per HPI Resp Reports no additional complaints GI Reports no additional complaints Reports as per HPI Musc Reports no additional complaints Neuro Reports no additional complaints Psych Reports no additional complaints Endo Reports no additional complaints Cornell/Lymph Reports no additional complaints Aller/Immun Reports no additional complaints Physical Exam Const General: cooperative, healthy appearing, comfortable, no acute distress, well developed, alert and awake Orientation/consciousness: patient oriented x3 Limitations: no limitations HEENT Head: Yes normal to inspection, Yes normocephalic and Yes atraumatic Ears: hearing grossly normal bilaterally Eyes General: appearance normal, both eyes and all related structures Neck Neck: Yes normal visual inspection and Yes trachea midline Chest Chest palpation & inspection: normal inspection of the chest Resp Effort & Inspection: normal respiratory effort and able to speak in complete sentences Cardio Rate: regular rate GI Inspection: Yes normal to inspection Rectal Exam - Male: Yes visual inspection normal, Yes normal sphincter tone and Yes prostate normal General: Yes no CVA tenderness Back/Spine/Pelvis Back: no CVA tenderness Skin General skin exam: no rashes or lesions noted Neuro General: patient oriented x3 Extrem General: Yes normal to inspection Psych Appearance: grossly normal and well kempt Mental Status: mental status grossly normal Speech and movement: Normal speech and movement present and Clear speech present Affect: normal affect Attitude: cooperative Thought process: Normal thought process present Thought content: Normal thought content present Insight: Good insight present (Psych) Judgement: Good judgement present (Psych) Assessment & Plan Assessment & Plan (1) BPH (benign prostatic hyperplasia): Code(s): N40.0 - Benign prostatic hyperplasia without lower urinary tract symptoms (2) Urinary dribbling: Code(s): N39.43 - Post-void dribbling Plan In office urinalysis results reviewed with the patient today; as noted above PVR 34 mL. Continue finasteride and Flomax as discussed and prescribed. Discussed pelvic floor exercises for improvement in urinary dribbling. Patient denies any bothersome urinary issues or concerns at this time. Recent PSA results reviewed with the patient today; as noted above. PSA in 6 months. Follow-up in 6 months with lab to be completed prior; or sooner with any issues, concerns, and or questions. Orders: Orders AMB Post Void Residual by ultrasound Today N40.0 - Benign prostatic hyperplasia without lower urinary tract symptoms AMB Urinalysis Automated Today N40.0 - Benign prostatic hyperplasia without lower urinary tract symptoms, Z13.9 - Encounter for screening, unspecified Prostate Specific Antigen 6 Months N40.0 - Benign prostatic hyperplasia without lower urinary tract symptoms Patient Instructions: The patient had an opportunity to ask questions regarding the treatment plan. All questions were answered. Physical exam, labs, and imaging were discussed and reviewed in detail. As well as risks, benefits, and discussion of treatment choices. No major barriers to understanding were identified. The patient expressed understanding and agreement with the above treatment plan. The patient was made aware they should contact our office by phone for worsening of their current condition, the appearance of new symptoms, or with any questions or concerns. Compliance is encouraged with any medications and follow up testing that is ordered. It is a privilege to be allowed the opportunity to participate in? your urological care.? Again, if you have any questions or concerns If you have any questions or concerns please do not hesitate to contact me. The office is [phone]. This note is constructed using voice recognition software. While every effort has been made to ensure accuracy latex thread machine operator errors may have been included. Yours sincerely, NIKKY Jain Coding Level of Care Code Est Pt Level 3 (97294) Diagnoses BPH (benign prostatic hyperplasia) N40.0 Urinary dribbling N39.43
== END 2023-01-31 09:13 | disposition home or self-care (01) ==
PROVIDERS: PCP Registered Nurse; Visit Provider Nurse Practitioner Family
DX: N40.0 Benign prostatic hyperplasia without lower urinary tract symptoms (principal); N39.43 Post-void dribbling
CPT/HCPCS: 99213

== ENCOUNTER → 2023-01-31 08:26 | Outpatient (BNVA) | payer OTHER, SELFPAY | PROVIDERS: Visit Provider Nurse Practitioner Family | DX: N40.0 Benign prostatic hyperplasia without lower urinary tract symptoms (principal); N39.43 Post-void dribbling | CPT/HCPCS: 99212 ==

== ENCOUNTER 2023-03-19 12:53 | Outpatient (REF) | payer OTHER, SELFPAY ==
--- NOTE | ~2023-03-19 | MR_ITS ---
EXAMINATION: MR LUMBAR SPINE WITHOUT CONTRAST CLINICAL INFORMATION: Low back pain, left leg pain COMPARISON: MRI lumbar spine 05/13/2016 TECHNIQUE: MRI of the lumbar spine was obtained using routine sequences without contrast. FINDINGS: Prior L4-L5 interbody fusion with solid interbody arthrodesis at this level. Straightening of the normal lumbar lordosis. No significant spondylolisthesis. Vertebral body heights are maintained. There is no suspicious osseous lesion. Raced mild disc desiccation and disc height loss at T11-T12 with Kreis type I Modic endplate changes anteriorly. Increased type I Modic endplate change along the L2 anterior inferior endplate. L5 intraosseous hemangioma, unchanged. Multilevel type II Modic endplate change most pronounced at L4-L5. Multilevel anterior osteophytic spurring is seen. Level by level detail as follows: L1-L2: No spinal canal or neural foraminal stenosis. L2-L3: Shallow annular disc bulge and mild bilateral facet arthrosis. No spinal canal or neural foraminal stenosis. L3-L4: Annular disc bulge and mild bilateral facet arthrosis. No spinal canal or neural foraminal stenosis. L4-L5: Post interbody fusion with interbody arthrodesis and mild to moderate bilateral facet arthrosis. No spinal canal stenosis. Impression upon the traversing left L5 nerve root in the subarticular zone. No neural foraminal stenosis. L5-S1: Annular disc bulge, moderate right and mild left facet arthrosis. No spinal canal stenosis. Moderate right and mild to moderate left neural foraminal stenosis with mild mass effect along the exiting L5 nerve roots. The conus medullaris terminates at the level of L1. The distal spinal cord is normal in appearance. . No epidural fluid collection, hematoma, or mass. No significant abnormalities of the paraspinal musculature. Limited evaluation of the intra-abdominal structures without significant abnormalities. The abdominal aorta is of normal contour and caliber. MR/MR lumbar spine wo con IMPRESSION: Again seen interbody fusion at L4-L5 and minimal lumbar spondylosis without high-grade spinal canal or neural foraminal stenosis. Stable moderate right and mild to moderate left neural foraminal stenosis with mild mass effect along the exiting L5 nerve roots.
== END 2023-03-19 12:54 | disposition home or self-care (01) ==
LOC: HO.MRI 12:53
PROVIDERS: PCP Registered Nurse; Visit Provider Registered Nurse
DX: R10.32 Left lower quadrant pain (principal); M51.36 Other intervertebral disc degeneration, lumbar region
CPT/HCPCS: 72148

== ENCOUNTER 2023-05-25 13:56 | Outpatient (REF) | payer OTHER, SELFPAY | END 2023-05-25 13:57 | disposition home or self-care (01) | LOC: HO.HHCLNP 13:56 | PROVIDERS: Visit Provider Emergency Medicine | DX: R10.32 Left lower quadrant pain (principal) | CPT/HCPCS: 87086 ==

== ENCOUNTER 2023-05-31 17:03 | Outpatient (REF) | payer OTHER, SELFPAY ==
[2023-06-01 14:59] LABS: Adenovirus F 40/41 Not Detected (Not Detect.); Astrovirus Not Detected (Not Detect.); Campylobacter Not Detected (Not Detect.); Cryptosporidium Not Detected (Not Detect.); Cyclospora cayetanensis Not Detected (Not Detect.); E. coli EAEC Not Detected (Not Detect.); E. coli EPEC Not Detected (Not Detect.); E. coli ETEC Not Detected (Not Detect.); E. coli STEC Not Detected (Not Detect.); Entamoeba histolytica Not Detected (Not Detect.); Giardia lamblia Not Detected (Not Detect.); Norovirus GI/GII Not Detected (Not Detect.); Plesiomonas shigelloides Not Detected (Not Detect.); Rotavirus A Not Detected (Not Detect.); Salmonella Not Detected (Not Detect.); Sapovirus Not Detected (Not Detect.); Shigella sp./EIEC Not Detected (Not Detect.); Vibrio Not Detected (Not Detect.); Vibrio Cholerae Not Detected (Not Detect.); Yersinia enterocolitica Not Detected (Not Detect.)
[2023-06-07 22:09] LABS: Calprotectin, Fecal 122 mcg/g
== END 2023-05-31 17:04 | disposition home or self-care (01) ==
LOC: HO.HHCLNP 17:03
PROVIDERS: Visit Provider Emergency Medicine
DX: R10.32 Left lower quadrant pain (principal)
CPT/HCPCS: 83993; 87507

== ENCOUNTER 2023-06-06 16:55 | Outpatient (REF) | payer OTHER, SELFPAY | END 2023-06-06 16:56 | disposition home or self-care (01) | LOC: HO.HHCLNP 16:55 | PROVIDERS: Visit Provider Emergency Medicine | DX: R10.32 Left lower quadrant pain (principal) | CPT/HCPCS: 82274 ==

== ENCOUNTER 2023-06-15 12:51 | Outpatient (AMB) | payer OTHER, SELFPAY ==
[2023-06-15 12:57] VITALS: BP 120/80; PULSE 72; BMI 29.3
--- NOTE | 2023-06-15 12:57 | MHC.OFFVIS ---
Intake Vital Signs 06/15/23 12:57 Height 5 ft 9 in Weight 198 lb 6.656 oz BMI 29.3 BP 120/80 Blood Pressure Location Lt brachial Position Sitting Pulse 72 Intake Visit Reasons: 1 year followup w/ekg dx: cad Intake Note: 1 year follow-up with ekg c/o chest pressure maybe 2 a month for a day at a time Allergies No Known Allergies Allergy (Verified 01/31/23 20:15) Medication List - Last Reconciled 06/15/23 by Sharan Mariscal MD aspirin 81 mg PO QAM atorvastatin 80 mg PO BEDTIME famotidine 40 mg PO BEDTIME finasteride 5 mg PO DAILY 90 days fluoxetine 80 mg PO DAILY levetiracetam 500 mg PO BID melatonin 3 mg PO BEDTIME daxrehnvtknf-yspu-elzxv acid 18-400 mg-mcg (Certavite-Antioxidant) 1 tab PO QAM nitroglycerin 0 mg sublingual pantoprazole 40 mg PO BID propranolol 10 mg PO BID terazosin 5 mg PO BEDTIME 90 days HPI HPI Comments History of Present Illness Details Chrissy comes for follow-up. He continues to have intermittent episodes of chest pressure which last for a whole day. He also has intermittent episodes of left neck pressure not with exertion. Can happen independently of his chest pressure. Mostly happens at rest. He takes all his medications. Says almost always feels like he is feeling dizzy. He has not had any syncopal episodes. Occasionally his blood pressures systolic 110. No recent blood work for lipids. Denies any heart failure symptoms. 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 Review of Systems Const Denies chills, Denies fatigue, Denies fever(s), Denies frequent falls, Denies weakness, Denies weight gain and Denies weight loss ENT Denies dizziness Card Denies chest pain, Denies leg edema, Denies lightheadedness, Denies palpitations, Denies dyspnea, Denies dyspnea on exertion, Denies orthopnea and Denies other (loss of consciousness) Resp Denies cough, Denies dyspnea and Denies dyspnea on exertion GI Denies hematochezia and Denies change in stool character Musc Denies abnormal gait, Denies muscle weakness, Denies numbness, Denies radiating pain into limb and Denies tingling Neuro Denies abnormal gait, Denies dizziness, Denies frequent falls, Denies numbness, Denies tingling and Denies weakness Endo Denies fatigue and Denies palpitations Physical Exam Vital Signs: Last Vital Signs Pulse 72 06/15/23 12:57 BP 120/80 06/15/23 12:57 BMI result Body Mass Index 29.3 Const General: cooperative, comfortable, no acute distress, alert and awake Nutritional Appearance: average body habitus Orientation/consciousness: patient oriented x3 Limitations: no limitations Neck Neck: Yes trachea midline, Yes supple and Yes no JVD Carotids: no bruits Resp Effort & Inspection: normal respiratory effort Auscultation: clear to auscultation bilaterally Cardio Jugular venous distension: no JVD Palpation: normal PMI Rate: regular rate Rhythm: regular rhythm Heart sounds: S1 normal heart sound present, S2 normal heart sound present, no click, no gallops, no murmurs and no rubs GI Auscultation: normal bowel sounds Skin General skin exam: no rashes or lesions noted Neuro General: patient oriented x3 and no focal motor deficits Extrem General: Yes no clubbing, cyanosis or edema Psych Appearance: grossly normal Office Procedures EKG Details: EKG shows normal sinus rhythm with T-wave inversion inferior leads with nonspecific ST T wave changes in anterolateral leads, new compared to prior EKG [id number], Complete Assessment & Plan Assessment & Plan (1) CAD (coronary artery disease): Comment: Nonobstructive proximal LAD disease at 30% with diagonal branch small vessel at 70% Code(s): I25.10 - Atherosclerotic heart disease of [place] coronary artery without angina pectoris Plan: Patient with prior CAD nonobstructive with intermittent episodes of chest pressure and neck pressure which are not suggestive of myocardial ischemia. Although needs continued aggressive medical therapy. Blood pressure is currently well optimized on current propranolol therapy. Advised to monitor blood pressure at home especially when he symptoms of dizziness to assess if he has orthostatic lightheadedness. Continue low-dose aspirin therapy for life. Continue high-intensity statin therapy. Advised lipid panel in near future. (2) Abnormal EKG: Code(s): R94.31 - Abnormal electrocardiogram [ECG] [EKG] Plan: Abnormal EKG which is concerning and need to rule out progressive myocardial ischemia. Suggest exercise myocardial perfusion imaging in near future. Also suggest echocardiogram to evaluate LV systolic and diastolic function. These tests will be scheduled in near future. Further treatment based on the findings. Will follow up in the clinic in 1 year's time, sooner p.r.n.. Thank you for allowing me to partake in his care Coding Level of Care Code Est Pt Level 4 (57662) Diagnoses CAD (coronary artery disease) I25.10 Abnormal EKG R94.31 CPT Codes EKG - CPT: [id number], Complete ([id number])
== END 2023-06-15 13:18 | disposition home or self-care (01) ==
PROVIDERS: PCP Registered Nurse; Visit Provider Internal Medicine Cardiovascular Disease
DX: I25.10 Atherosclerotic heart disease of native coronary artery without angina pectoris (principal); R94.31 Abnormal electrocardiogram [ECG] [EKG]
CPT/HCPCS: 93010; 99214

== ENCOUNTER → 2023-06-15 12:51 | Outpatient (BNVA) | payer OTHER, SELFPAY | PROVIDERS: PCP Registered Nurse; Visit Provider Internal Medicine Cardiovascular Disease | DX: I25.10 Atherosclerotic heart disease of native coronary artery without angina pectoris (principal); R94.31 Abnormal electrocardiogram [ECG] [EKG]; Z79.82 Long term (current) use of aspirin; Z79.899 Other long term (current) drug therapy | CPT/HCPCS: 93005; 99212 ==

== ENCOUNTER 2023-06-17 10:24 | Outpatient (REF) | payer OTHER, SELFPAY ==
[2023-06-17 11:35] LABS: Prostate Specific Antigen 2.03 ng/mL (<0.05-4.0)
== END 2023-06-17 10:25 | disposition home or self-care (01) ==
LOC: HO.LAB 10:24
PROVIDERS: Visit Provider Nurse Practitioner Family
DX: Z12.5 Encounter for screening for malignant neoplasm of prostate (principal); N40.0 Benign prostatic hyperplasia without lower urinary tract symptoms
CPT/HCPCS: 36415; 84153

== ENCOUNTER → 2023-07-19 09:17 | Outpatient (REF) | payer OTHER, SELFPAY ==
--- NOTE | 2023-07-19 09:19 | CA_ITS ---
Transthoracic Echocardiogram Patient (Last, First, Middle): Inderjit Stoner A Gender: Male Date of : 1960 Age: 63 Procedure Date: 07/19/2023 Procedure Type: Transthoracic Echocardiogram Location: OP Height: 175.26 cm Weight: 90.72 kg BSA: 2.07 m2 Heart Rate: 63 bpm BP: 124 / 80 mmHg Charge Aide: SB Referring MD: Joie Lainez NP Symptoms: I25.10 - Atherosclerotic heart disease of [place] coronary artery without... Study Quality: Adequate ECG Rhythm: Sinus Conclusions: - The left ventricular systolic function is normal. The calculated ejection fraction is 60% by biplane method. - No obvious valvular pathology seen on this study. Findings Left Ventricle Mildly increased left ventricular cavity size. There is normal left ventricular wall thickness. The left ventricular systolic function is normal. The calculated ejection fraction is 60% by biplane method. There is no evidence of regional wall motion abnormalities. Diastolic function is normal for age. LV peak GLS -18.7%, normal. Right Ventricle Normal right ventricular cavity size and systolic function. Atria Both atria are normal in size. Aortic Valve There is a normal trileaflet aortic valve. There is no aortic valve stenosis. There is no aortic valve regurgitation. Mitral Valve The mitral valve appears normal. There is no mitral valve regurgitation. There is no mitral valve stenosis. Pulmonic Valve The pulmonic valve is likely normal. Tricuspid Valve Normal tricuspid valve structure. There is trace tricuspid valve regurgitation. There is no evidence of pulmonary hypertension. Great Vessels The aortic annulus, sinuses of valsalva, and asc aorta are normal in size. Venous The inferior vena cava is normal in size and collapses greater than 50% with inspiration. Pericardium/Pleural There is no evidence of pericardial effusion. Prior Study Comparison No significant change compared to prior study dated: 12/17/2020. Recommendations, Care & Conclusions No obvious valvular pathology seen on this study. Measurements 2D Linear Measurements IVSd: 0.88 0.6-0.9/0.6-1.0 cm LVIDd: 5.58 3.9-5.3/4.2-5.9 cm LVIDd Index: 2.70 2.4-3.2/2.2-3.1 cm/m2 LVIDs: 3.68 2.0-3.6 cm LVPWd: 0.78 0.7-1.1 cm LA Diam: 4.40 2.7-3.8/3.0-4.0 cm LAIDs Index: 2.13 1.5-2.3 cm/m2 LV Mass: 213.83 67-162/88-224 g LV Mass Index: 103.30 43-95/49-115 g/m2 LVOT Diam: 2.40 3.0+(-)1.3 cm 2D Systolic Function EF 4C: 53.50 >55% EF 2C: 67.30 >55% EF BiP: 60.00 >55% Mitral Valve MV Pk E: 0.57 MV PK A: 0.62 MV Decel Time: 229.00 E/A: 0.90 E'Lateral: 5.44 E'Medial: 5.33 E/E' Med: 10.60 E/E' Lat: 10.40 PHT: 67.00 MVA PHT: 3.28 Decel Mcintosh: 2.46 Aortic Valve AoV Pk Tc: 1.26 AoV Pk Grad: 6.00 DERIK: 3.41 LVOT LVOT Pk Tc: 0.95 LVOT Mn Tc: 0.63 LVOT VTI: 0.21 LVOT Pk Grad: 4.00 LVOT Mn Grad: 2.00 LVOT Diam: 2.40 LVOT Area: 4.52 Diastolic Function MV Pk E: 0.57 MV Pk A: 0.62 E/A: 0.90 E'Medial: 5.33 E/E' Med: 10.60 E' Laterial: 5.44 E/E' Lat: 10.40 Right Ventricle TAPSE (mm): 19.40 Tricuspid Valve TR Pk Tc: 1.82 TR Pk Grad: 13.00 RA Press: 3.00 RVSP: 16.00 Great Vessels Aorta Sinus of Valsalva: 3.50 2.0-3.5 cm Ao Asc: 3.00 2.1-3.4 cm Updated in Other Vendor System with Status of Final Chin Collins MD electronically signed on 07/19/2023 10:00:07 AM with status of Final
== END ==
LOC: HO.CARD 09:17
PROVIDERS: PCP Registered Nurse; Visit Provider Nurse Practitioner
DX: I25.10 Atherosclerotic heart disease of native coronary artery without angina pectoris (principal)
CPT/HCPCS: 93306; 93356

== ENCOUNTER → 2023-07-19 09:19 | Outpatient (BNV) | payer OTHER, SELFPAY | PROVIDERS: PCP Registered Nurse; Visit Provider Internal Medicine | DX: I25.10 Atherosclerotic heart disease of native coronary artery without angina pectoris (principal) | CPT/HCPCS: 93306; 93356 ==

== ENCOUNTER 2023-07-22 13:20 | Outpatient (REF) | payer OTHER, SELFPAY ==
--- NOTE | ~2023-07-22 | US_ITS ---
EXAMINATION: US PELVIS, LIMITED/FOLLOW UP CLINICAL INFORMATION: Masslike sensation at site of previous surgical scar Left lower quadrant pain COMPARISON: None available. TECHNIQUE: Real-time ultrasound of the left lower quadrant over the area of back surgery scar was performed with high- frequency braxton-scale imaging and color Doppler. FINDINGS: Ultrasound of the left lower quadrant at the site of the back surgery scar indicated by the patient demonstrates a 1.0 x 0.6 x 1.4 cm area of slightly increased echogenicity just below the subcutaneous fat without associated vascularity. This likely represents a simple scar, less likely Keloid along the scar. No associated hernia. US/US pelvic limited IMPRESSION: 1.4 cm area of slightly increased echogenicity just below the subcutaneous fat at the site of the back surgery indicated by the patient. This likely represents a simple scar, less likely Keloid along the scar. No associated hernia.
== END 2023-07-22 13:21 | disposition home or self-care (01) ==
LOC: HO.US 13:20
PROVIDERS: Visit Provider Student in an Organized Health Care Education/Training Program
DX: R10.32 Left lower quadrant pain (principal)
CPT/HCPCS: 76857

== ENCOUNTER 2023-08-01 08:17 | Outpatient (AMB) | payer OTHER, SELFPAY ==
--- NOTE | 2023-08-01 08:26 | A.OFFVIS_ITS ---
Intake Intake Visit Reasons: 6m/PSA/PVR(set) Intake Note: Patient presents for follow up for BPH/labs Urology Medications: d/c tamsulosin, finasteride, terazosin Blood Thinner: none PVR: 24ml's Compound Worker Required: Yes Accompanied by: Self / Same As Patient Allergies No Known Allergies Allergy (Verified 08/01/23 08:59) Medication List - Last Reconciled 08/01/23 by ANISH Jain- aspirin 81 mg PO QAM atorvastatin 80 mg PO BEDTIME famotidine 40 mg PO BEDTIME finasteride 5 mg PO DAILY 90 days fluoxetine 80 mg PO DAILY levetiracetam 500 mg PO BID melatonin 3 mg PO BEDTIME lbdgqygqzssc-tdap-vbgje acid 18-400 mg-mcg (Certavite-Antioxidant) 1 tab PO QAM nitroglycerin 0 mg sublingual pantoprazole 40 mg PO BID propranolol 10 mg PO BID terazosin 5 mg PO BEDTIME 90 days trazodone mg PO HPI HPI Comments History of Present Illness Details Inderjit is a pleasant 63-year-old male patient of Dr. Christiansen. He has a PMH of CAD. He presents to the office today for follow-up of his lower urinary tract symptoms. In discussion with the patient today reports to be doing and feeling well. He reports compliance with 5 mg of finasteride and terazosin daily. He does continue to report urinary dribbling in episodes of nocturia. He otherwise denies urinary urgency, urinary frequency, incontinence, hematuria, dysuria, foul smelling urine, changes to urinary stream, flank pain, fever, and or chills. When asked he does report to be drinking fluids up until/prior to bed. Previous workup has included a retroperitoneal ultrasound noting mild diffuse bladder wall thickening. No stone or masses seen. Bilateral ureteral jets are demonstrated. Pre void bladder volume is approximately 210 mL. Postvoid above item is 2 mL. The kidneys are normal with no calculi hydronephrosis or lesions noted. He had previously tried Flomax with no improvement however he does report improvement in urinary urgency and frequency with 5 mg of terazosin daily. In office urinalysis results reviewed with the patient today. PVR 24 mL. Recent PSA results reviewed with the patient and trended below. When asked he otherwise denies any other urinary issues or concerns at this time. PSAs are as follows: 09/05--2.5 02/05--2.3 07/09--2.0 PFSH Medical History CAD (coronary artery disease) Surgical History Hx of colonoscopy History of esophagogastroduodenoscopy (EGD) Family History Father Cancer Mother Cancer Social History Alcohol intake: never Patient Tobacco Use Status: Never used Tobacco Advance Directives Date on File: 02/25/21 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 Review of Systems Const Reports as per HPI Eyes Reports no additional complaints ENT Reports no additional complaints Card Reports as per HPI Resp Reports no additional complaints GI Reports no additional complaints Reports as per HPI Musc Reports no additional complaints Neuro Reports no additional complaints Psych Reports no additional complaints Endo Reports no additional complaints Cornell/Lymph Reports no additional complaints Aller/Immun Reports no additional complaints Physical Exam Const General: cooperative, healthy appearing, comfortable, no acute distress, well developed, alert and awake Orientation/consciousness: patient oriented x3 Limitations: no limitations HEENT Head: Yes normal to inspection, Yes normocephalic and Yes atraumatic Ears: hearing grossly normal bilaterally Eyes General: appearance normal, both eyes and all related structures Neck Neck: Yes normal visual inspection and Yes trachea midline Chest Chest palpation & inspection: normal inspection of the chest Resp Effort & Inspection: normal respiratory effort and able to speak in complete sentences Cardio Rate: regular rate GI Inspection: Yes normal to inspection Rectal Exam - Male: Yes visual inspection normal, Yes normal sphincter tone and Yes prostate normal General: Yes no CVA tenderness Back/Spine/Pelvis Back: no CVA tenderness Skin General skin exam: no rashes or lesions noted Neuro General: patient oriented x3 Extrem General: Yes normal to inspection Psych Appearance: grossly normal and well kempt Mental Status: mental status grossly normal Speech and movement: Normal speech and movement present and Clear speech present Affect: normal affect Attitude: cooperative Thought process: Normal thought process present Thought content: Normal thought content present Insight: Good insight present (Psych) Judgement: Good judgement present (Psych) Office Procedures Post Void Residual Post Residual Void Post Void Residual (PVR): 24 [id number] Void Residual by ultrasound Results AMB Urinalysis, Automated UA Leukoctes 0 Wade/uL Last Edit by More Gutierrez on 08/01/23 08:45 UA Nitrite Negative Last Edit by More Gutierrez on 08/01/23 08:45 UA Urobilinogen 0.2 mg/dL Last Edit by ZayYOOSEomi Gutierrez on 08/01/23 08:45 UA Protein 15 mg/dL Last Edit by [employer] on 08/01/23 08:45 UA pH 6.0 Last Edit by [employer] on 08/01/23 08:45 UA Blood 0 Christian/uL Last Edit by [employer] on 08/01/23 08:45 UA Specific [place] 1.020 Last Edit by [employer] on 08/01/23 08:45 UA Ketone Negative Last Edit by [employer] on 08/01/23 08:45 UA Bilirubin 0 mg/dL Last Edit by [employer] on 08/01/23 08:45 UA Glucose 0 mg/dL Last Edit by [employer] on 08/01/23 08:45 Results Reviewed Results Reviewed: Laboratory Last Values Urine pH (Auto) 6.0 08/01/23 08:43 Specific [place] (Auto) 1.020 08/01/23 08:43 Urine Protein (Auto) 15 mg/dL 08/01/23 08:43 Glucose (UA)(Auto) 0 mg/dL 08/01/23 08:43 Urine Ketones (Auto) Negative 08/01/23 08:43 Urine Blood (Auto) 0 Christian/uL 08/01/23 08:43 Urine Nitrite (Auto) Negative 08/01/23 08:43 Urine Bilirubin (Auto) 0 mg/dL 08/01/23 08:43 Urine Urobilinogen (Auto) 0.2 mg/dL 08/01/23 08:43 Leukocyte Esterase (Auto) 0 Wade/uL 08/01/23 08:43 Assessment & Plan Assessment & Plan (1) Urinary dribbling: Code(s): N39.43 - Post-void dribbling (2) BPH (benign prostatic hyperplasia): Code(s): N40.0 - Benign prostatic hyperplasia without lower urinary tract symptoms (3) Bladder wall thickening: Code(s): N32.89 - Other specified disorders of bladder (4) Nocturia: Code(s): R35.1 - Nocturia Plan In office urinalysis results reviewed with the patient today; as noted above. PVR 24 mL. Recent PSA results reviewed with the patient today; as noted above. Discussed at length importance of pelvic floor therapy exercises; information provided. Discussed lifestyle modifications to assist with urinary dribbling and nocturia. Continue finasteride and terazosin as discussed and prescribed. Will obtain PSA in 6 months. Follow-up in 6 months with lab to be completed prior and PVR at next office visit; or sooner with any issues, concerns, and or questions. Orders: Orders AMB Urinalysis Automated Today Z13.9 - Encounter for screening, unspecified AMB Post Void Residual by ultrasound Today N39.43 - Post-void dribbling Prostate Specific Antigen 6 Months N39.43 - Post-void dribbling, N40.0 - Benign prostatic hyperplasia without lower urinary tract symptoms, R35.1 - Nocturia Patient Instructions: The patient had an opportunity to ask questions regarding the treatment plan. All questions were answered. Physical exam, labs, and imaging were discussed and reviewed in detail. As well as risks, benefits, and discussion of treatment choices. No major barriers to understanding were identified. The patient expressed understanding and agreement with the above treatment plan. The patient was made aware they should contact our office by phone for worsening of their current condition, the appearance of new symptoms, or with any questions or concerns. Compliance is encouraged with any medications and follow up testing that is ordered. It is a privilege to be allowed the opportunity to participate in? your urological care.? Again, if you have any questions or concerns If you have any questions or concerns please do not hesitate to contact me. The office is [phone]. This note is constructed using voice recognition software. While every effort has been made to ensure accuracy moisture conditioner operator errors may have been included. Yours sincerely, NIKKY Jain Coding Level of Care Code Est Pt Level 3 (66680) Diagnoses Urinary dribbling N39.43 BPH (benign prostatic hyperplasia) N40.0 Bladder wall thickening N32.89 Nocturia R35.1 CPT Codes Post Residual Void - PVR CPT Code: 11178-Bacg Void Residual by ultrasound ([id number])
== END 2023-08-01 08:58 | disposition home or self-care (01) ==
PROVIDERS: PCP Registered Nurse; Visit Provider Nurse Practitioner Family
DX: N39.43 Post-void dribbling (principal); N40.0 Benign prostatic hyperplasia without lower urinary tract symptoms; N32.89 Other specified disorders of bladder; R35.1 Nocturia; Z13.9 Encounter for screening, unspecified
CPT/HCPCS: 99213

== ENCOUNTER → 2023-08-01 08:17 | Outpatient (BNVA) | payer OTHER, SELFPAY | PROVIDERS: PCP Registered Nurse; Visit Provider Nurse Practitioner Family | DX: N39.43 Post-void dribbling (principal); N40.0 Benign prostatic hyperplasia without lower urinary tract symptoms; N32.89 Other specified disorders of bladder; R35.1 Nocturia | CPT/HCPCS: 51798; 81003; 99212 ==

== ENCOUNTER 2023-08-03 09:02 | Outpatient (AMB) | payer OTHER, SELFPAY ==
[2023-08-03 09:04] VITALS: BP 118/80; PULSE 82; BMI 30.1
--- NOTE | 2023-08-03 09:04 | A.OFFVIS_ITS ---
Intake Vital Signs 08/03/23 09:04 Height 5 ft 9 in Weight 203 lb 11.314 oz BMI 30.1 BP 118/80 Blood Pressure Location Rt brachial Position Sitting Pulse 82 Pulse Source Pulse Oximeter Intake Visit Reasons: 6 Month Follow up Intake Note: Pt presents to the office today for a 6 month follow up for constipation. Pt states the medication his helping with his constipation. Pt states he is going more regularly now but states he does still strain when he goes to the bathroom. Allergies No Known Allergies Allergy (Verified 08/03/23 09:06) HPI 6 Month Follow up HPI Details LAST VISIT: Left lower quadrant abdominal pain Left lower quadrant pain most likely related to muscular or neurological pain. Patient was encouraged to follow-up with his PCP regarding referral to neurosurgeon as recommended also by surgeon that patient recently saw for evaluation of his left lower quadrant pain. On exam patient has benign exam no tenderness, no mass, no swelling, no guarding. GERD (gastroesophageal reflux disease) Continue PPI therapy twice a day. May use famotidine at night time if need to. Patient was encouraged to avoid dietary triggers and late night snacking. Staying upright for minimum 3 hours after meals discussed with patient. Chronic idiopathic constipation Continue Trulance. Increase fluid intake and activity to promote better bowel motility. I will see patient in 6 months, sooner on as needed basis. Patient is agreeable to this plan and verbalizes understanding of instructions. He was given the opportunity to ask questions and all questions answered. TODAY'S VISIT Patient is here today for follow-up. Patient states that he is doing better, takes Trulance daily and reports that he continues to feel like he does not empty completely. Patient states that he occasionally will still have left lower quadrant pain. Recently had bouts of diarrhea and abdominal pain. Fecal calprotectin done and was elevated. Negative GI panel. Patient denies any melena, hematochezia, unintentional weight loss or ribbon like stools. Patient reports that his symptoms of acid reflux are suppressed. Patient is currently taking pantoprazole twice a day and famotidine at bedtime. Patient reports that he no longer experiences acid reflux. Denies dyspepsia, dysphagia or odynophagia. [facility] Medical History CAD (coronary artery disease) Surgical History Hx of colonoscopy History of esophagogastroduodenoscopy (EGD) Family History Father Cancer Mother Cancer Social History Alcohol intake: never Patient Tobacco Use Status: Never used Tobacco Smoked in Last 30 Days: No Use of substances other than those prescribed or required for medical reasons: No Advance Directives: Yes Advance Directives on File: Yes Advance Directives Date on File: 02/25/21 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 Review of Systems Const Denies weight gain and Denies weight loss ENT Reports no additional complaints, Denies dysphagia and Denies odynophagia Card Reports no additional complaints Resp Reports no additional complaints GI Reports abdominal pain (LLQ), Denies belching, Denies melena, Reports bloating, Denies change in bowel habits, Denies dysphagia, Reports excessive flatus, Denies dyspepsia, Denies heartburn, Denies diarrhea, Denies loose stools, Denies nausea, Denies odynophagia and Denies vomiting Reports no additional complaints Musc Reports no additional complaints Neuro Reports no additional complaints Psych Reports no additional complaints Endo Reports no additional complaints Physical Exam Vital Signs: Last Vital Signs Pulse 82 08/03/23 09:04 BP 118/80 08/03/23 09:04 BMI result Body Mass Index 30.1 Const General: healthy appearing, no acute distress and well developed Nutritional Appearance: well nourished Orientation/consciousness: patient oriented x3 Resp Effort & Inspection: normal respiratory effort, able to speak in complete sentences, no tracheal deviation and symmetric chest movement Auscultation: clear to auscultation bilaterally Cardio Rate: regular rate GI Inspection: Yes normal to inspection and No distended Palpation (GI): Soft to palpation, not firm, nontender and No hepatosplenomegaly present Auscultation: normal bowel sounds General: Yes no CVA tenderness Back/Spine/Pelvis Back: no CVA tenderness Skin General skin exam: elasticity normal, turgor normal and dry skin Neuro General: patient oriented x3 Psych Appearance: grossly normal Mental Status: mental status grossly normal Assessment & Plan Assessment & Plan (1) Left lower quadrant abdominal pain: Code(s): R10.32 - Left lower quadrant pain (2) Elevated fecal calprotectin: Code(s): R19.5 - Other fecal abnormalities (3) Chronic idiopathic constipation: Code(s): K59.04 - Chronic idiopathic constipation (4) GERD (gastroesophageal reflux disease): Code(s): K21.9 - Gastro-esophageal reflux disease without esophagitis Qualifiers: Esophagitis presence: esophagitis presence not specified Qualified Code(s): K21.9 - Gastro-esophageal reflux disease without esophagitis Plan Will stop Trulance and start patient on Linzess. He can take 290 mcg daily. I will send patient for CT enterography given elevated calprotectin. Possibly from localized colitis or diverticulitis in sigmoid colon, however can not rule out Crohn's which is very hard to detect. Patient normally has no diarrhea and is usually very constipated. Patient will get BUN and creatinine done week to 2 weeks before, will check his CRP level. Patient can continue taking pantoprazole and famotidine. Avoid dietary triggers and late night snacking. Staying upright for minimum 3 hours after meals discussed with patient. Patient will follow-up in the office in 6 months, sooner on as needed basis. Patient is agreeable to this plan and verbalizes understanding of instructions. He was given the opportunity to ask questions and all questions answered. Orders: Orders CT enterography 08/03/23 R10.32 - Left lower quadrant pain, R19.5 - Other fecal abnormalities Medications: New linaclotide (Linzess) 290 mcg PO QAM 30 caps 4RF K59.00 - Constipation, unspecified Coding Level of Care Code Est Pt Level 4 (41435) Diagnoses Left lower quadrant abdominal pain R10.32 Elevated fecal calprotectin R19.5 Chronic idiopathic constipation K59.04 Gastroesophageal reflux disease, unspecified whether esophagitis present K21.9 Esophagitis presence: esophagitis presence not specified Time Spent (min) 35 Comment 25 minutes spent with patient and additional 10 minutes spent reviewing his records
== END 2023-08-03 10:00 | disposition home or self-care (01) ==
PROVIDERS: PCP Registered Nurse; Visit Provider Nurse Practitioner Family
DX: R10.32 Left lower quadrant pain (principal); R19.5 Other fecal abnormalities; K59.04 Chronic idiopathic constipation; K21.9 Gastro-esophageal reflux disease without esophagitis
CPT/HCPCS: 99214

== ENCOUNTER → 2023-08-03 09:02 | Outpatient (BNVA) | payer OTHER, SELFPAY | PROVIDERS: PCP Registered Nurse; Visit Provider Nurse Practitioner Family | DX: K59.04 Chronic idiopathic constipation (principal); K21.9 Gastro-esophageal reflux disease without esophagitis; R19.5 Other fecal abnormalities; R10.32 Left lower quadrant pain | CPT/HCPCS: 99212 ==

== ENCOUNTER 2023-08-11 22:43 | Emergency (ER) | payer OTHER, SELFPAY ==
--- NOTE | ~2023-08-11 | CT_ITS ---
EXAMINATION: CT ABDOMEN AND PELVIS WITHOUT CONTRAST CLINICAL INFORMATION: Left flank pain, hematuria COMPARISON: 10/04/2022 TECHNIQUE: Multidetector volumetric imaging was performed from the superior aspect of the liver through the pubic symphysis. Sagittal and coronal reformatted images were obtained on the technologist's workstation. This CT examination was performed using dose optimization techniques as appropriate, variously including the following: *Automated exposure control *Adjustment of mA and/or kV according to patient size (this includes techniques or standardized protocols for targeted exams where dose is matched to indication/reason for exam; i.e. extremities or head) *Use of iterative reconstruction technique DLP: 184 mGy-cm FINDINGS: LUNG BASES: Minimal bibasilar atelectasis. Coronary artery calcifications are present. LIVER, GALLBLADDER, AND BILIARY TREE: The liver is normal in size, shape, and attenuation. No focal hepatic lesion or biliary ductal dilatation is identified on this noncontrast exam. The gallbladder is unremarkable with no evidence of radiopaque gallstones, gallbladder wall thickening, or obvious pericholecystic inflammatory changes. PANCREAS: Unremarkable. SPLEEN: Unremarkable. ADRENAL GLANDS: Unremarkable. KIDNEYS AND URETERS: There is a 2 mm calculus at the left ureterovesicular junction with mild hydronephrosis. No right-sided hydronephrosis or obstructing calculus. BLADDER: Unremarkable. GASTROINTESTINAL TRACT: No evidence of bowel obstruction or significant wall thickening. The appendix is unremarkable. No free fluid or free air is seen. ABDOMINAL WALL: Small fat-containing inguinal hernias. LYMPH NODES: Normal. VASCULAR: Scattered atherosclerotic calcifications. PELVIC VISCERA: Unremarkable. OSSEOUS STRUCTURES: Interbody fusion noted at L4-L5. CT/CT abdomen pelvis wo IV con IMPRESSION: 1. Left ureterovesicular junction calculus measuring 2 mm with mild hydronephrosis. 2. Coronary artery calcifications. Correlation with cardiac risk factors is recommended.
[2023-08-11 22:47] VITALS: BP 148/90; BP 153/57; PULSE 61; RESP 18; TEMP 36.7; O2SAT 100; O2SAT 98; BMI 29.7
[2023-08-11 23:28] LABS: Basophils Percent Auto 0.3 % (0-2); Eosinophils Absolute Auto 0.3 X10*3/uL (0.0-0.4); Eosinophils Percent Auto 4.5 % (0-4); Hematocrit 42.2 % (42.0-52.0); Hemoglobin 14.1 g/dl (14.0-18.0); Imm Gran Abs Auto 0.02 X10*3/uL (0.00-0.03); Imm Gran Pct Auto 0.3 % (0.0-0.4); Lymphocytes Absolute Auto 1.5 X10*3/uL (1.2-4.9); Lymphocytes Percent Auto 25.2 % (20-40); MANUAL DIFF FLAG NO; Mean Corpuscular HGB Conc 33.4 g/dl (31.0-36.0); Mean Corpuscular Hemoglobin 27.6 pg (27.0-33.0); Mean Corpuscular Volume 82.6 fL (80.0-98.0); Mean Platelet Volume 9.7 fL (9.4-12.4); Monocytes Absolute Auto 0.4 X10*3/uL (0.1-1.2); Monocytes Percent Auto 6.9 % (2-11); Neutrophils Absolute Auto 3.7 x10*3/uL (2.0-8.3); Neutrophils Percent Auto 62.8 % (45-73); Platelet Count 178 X10*3/uL (160-400); Red Blood Count 5.11 X10*6/uL (4.60-5.80); Red Cell Distribution Width 13.2 % (11.0-16.0)
[2023-08-11 23:46] LABS: Alanine Aminotransferase 49 U/L (0-40); Albumin Level 4.2 g/dL (3.5-5.0); Alkaline Phosphatase 96 U/L (39-117); Anion Gap 14 (12-20); Aspartate Amino Transferase 22 U/L (5-37); Bilirubin Total 0.9 mg/dL (0.0-1.0); Blood Urea Nitrogen 15 mg/dL (9-16); Calcium 9.1 mg/dL (8.4-10.2); Carbon Dioxide 23 mmol/L (22-29); Chloride 108 mmol/L (96-108); Estimated Glomerular Filt Rate > 60; Glucose Random 114 mg/dL (60-115); Lipase 25 U/L (8-78); Potassium 3.7 mmol/L (3.3-5.1); Sodium 141 mmol/L (135-145); Total Protein 7.1 g/dL (6.5-8.0)
[2023-08-12 01:23] VITALS: BP 153/75; PULSE 69; RESP 16; TEMP 36.2; O2SAT 98
[2023-08-12 01:30] LABS: Appearance Urine Clear; Color Urine Yellow; Glucose Urine UA Negative (Negative); Leukocyte Esterase Urine Trace (Negative); Nitrite Urine Negative (Negative); Specific Gravity - Urine 1.025 (1.005-1.025); UMIC TRIGGER UACC YES; Urine Blood Large (3+) (Negative); Urine Ketones Trace mg/dL (Negative); Urine Protein 30 (1+) mg/dL (Neg-Trace)
[2023-08-12 01:35] LABS: Bacteria Urine None Seen (None Seen); Hyaline Casts Urine 0-2 /LPF (0-2); RBC Urine >20 /HPF (0-2); Squamous Epithelial Cell Urine 0-2 /HPF (0-2); WBC Urine 0-5 /HPF (0-5)
--- NOTE | 2023-08-12 04:13 | ED_ITS ---
HPI - Abdominal Pain General Chief Complaint: Abdominal Pain Stated Complaint: abd pain x10hrs Time Seen by Provider: 08/12/23 04:02 Source: patient Mode of arrival: ambulatory Limitations: no limitations History of Present Illness HPI narrative: Patient comes to the emergency room complaining of intermittent left lower quadrant pain. Patient states it has been about be years that he has had intermittent left lower quadrant pain. However, for the last day, patient states that he has had left flank pain radiating towards the groin area. Patient denies fever chills, complaining of nausea, no vomiting. Related Data Home Medications Medication Instructions Recorded Confirmed aspirin 81 mg tablet,delayed 81 mg PO QAM 12/08/20 06/15/23 release atorvastatin 80 mg tablet 80 mg PO BEDTIME 12/08/20 06/15/23 propranolol 10 mg tablet 10 mg PO BID 12/19/20 06/15/23 melatonin 3 mg tablet 3 mg PO BEDTIME 08/16/22 06/15/23 nitroglycerin 0.4 mg sublingual 0 mg sublingual 08/16/22 06/15/23 tablet levetiracetam 500 mg tablet 500 mg PO BID 11/15/22 06/15/23 multivitamin-ferrous 1 tab PO QAM 11/15/22 06/15/23 fumarate-folic acid 18 mg-400 mcg tablet (Certavite-Antioxidant) fluoxetine 40 mg capsule 80 mg PO DAILY 12/20/22 06/15/23 trazodone 50 mg tablet mg PO 08/01/23 docusate sodium 100 mg capsule 100 mg PO DAILY 08/03/23 primidone 50 mg tablet 50 mg PO BEDTIME 08/03/23 topiramate 25 mg capsule,extended 25 mg PO DAILY 08/03/23 release 24 hr Previous Rx's Medication Instructions Recorded terazosin 5 mg capsule 5 mg PO BEDTIME 90 days #90 caps 03/22/23 famotidine 40 mg tablet 40 mg PO BEDTIME #90 tabs 06/23/23 finasteride 5 mg tablet 5 mg PO DAILY 90 days #90 tabs 06/23/23 pantoprazole 40 mg tablet,delayed 40 mg PO BID #60 tabs 08/02/23 release linaclotide 290 mcg capsule 290 mcg PO QAM #30 caps 08/03/23 (Linzess) cefuroxime axetil 250 mg tablet 250 mg PO BID #14 tabs 08/12/23 ketorolac 10 mg tablet 10 mg PO Q8H PRN pain #10 tabs 08/12/23 ondansetron 4 mg disintegrating 4 mg PO Q6H PRN nausea and 08/12/23 tablet vomiting #14 tabs Allergies Allergy/AdvReac Type Severity Reaction Status Date / Time No Known Allergies Allergy Verified 08/03/23 09:06 Review of Systems Review of Systems Constitutional : No Weight loss, No Fever, No Chills, No Night Sweats, No Fatigue, No Malaise ENT/Mouth : No Hearing loss, No Ear Pain, No Nasal Congestion, No Sinus Pain, No Hoarseness, No sore throat, No Rhinorrhea, No Swallowing Difficulty Eyes: No Eye Pain, No Swelling, No Redness, No Foreign Body, No Discharge, No Vision Changes Cardiovascular : No Chest Pain, No SOB, No Dyspnea on Exertion, No Orthopnea, No Edema, No Palpitations Respiratory : No Cough, No Sputum, No Wheezing, No Smoke Exposure, No Dyspnea Gastrointestinal : Complaining of Nausea, No Vomiting, No Diarrhea, No Constipation, No abdominal Pain, No Hematochezia, No Melena Genitourinary : no irregular bleeding, No Dysuria, No Urinary Frequency, No Hematuria, No Urinary Incontinence, No Urgency, complaining of left Flank Pain, No Urinary Flow Changes, No Hesitancy Musculoskeletal : No joint pain, No Myalgias, No Joint Swelling Skin : No Skin Lesions, No rash Neuro : No Weakness, No Numbness, No Paresthesias, No Loss of Consciousness, No Dizziness, No Headache Psych : No Anxiety/Panic, No Depression, No SI/HI/AH/VH, No Social Issues, Heme/Lymph: No Bruising, No Bleeding,No Lymphadenopathy Endocrine : No Polyuria, No Polydipsia, No Temperature Intolerance [facility] Past Medical History Medical History CAD (coronary artery disease) Surgical History Hx of colonoscopy History of esophagogastroduodenoscopy (EGD) Family History Family History Father Cancer Mother Cancer Social History Social History Alcohol intake: never Patient Tobacco Use Status: Never used Tobacco Smoked in Last 30 Days: No Use of substances other than those prescribed or required for medical reasons: No Advance Directives: Yes Advance Directives on File: Yes Advance Directives Date on File: 02/25/21 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 Oriented X3. No acute distress. Eyes: Pupils equal, round and reactive to light. ENT: Pharynx normal. Neck: Normal inspection. Neck supple. No lymph nodes noted. No crepitus CVS: Normal heart rate and rhythm. Pulses normal. Normal S1 and S2 Respiratory: No respiratory distress. Breath sounds normal. No Wheezing. No rales Abdomen: Soft , no tenderness to palpation in the abdomen other than between the left lower quadrant and left flank Skin: Skin warm and dry. Normal skin color. Normal skin turgor. Extremities: No lower extremity edema. No Lacerations. No Rash Neuro: Oriented X 3. No motor deficit. No sensory deficit. Moving all extremities. No slurred speech. CN 2 through 12 grossly intact Psych: calm, cooperative, normal affect Medical Decision Making Medical Decision Making MDM Narrative: My interpretation of labs: Hematology and chemistry and LFTs within normal limits. Urinalysis shows blood in the urine and trace leukocyte esterase. -is possible that patient may be passing kidney stones, states it has been years since he has passed 1. -for symptomatic relief patient receiving IV fluids, Zofran, Toradol. Comparing patient's previous urinalysis, patient has not had leukocyte esterase but he does today, we will go ahead and he does UTI, p.o. cefuroxime given today. This being a UTI with left flank pain, clinically this makes it pyelonephritis. Sepsis is not suspected, no fever , tachycardia or hypotension. -my interpretation of CT scan, possible small stone distal ureter on the left with mild hydronephrosis -radiology report confirmed, there is a 2 mm calculus. Patient will follow-up with his primary care physician and Urology -patient states that he feels much better. However, still having a bit of discomfort, we will go ahead and give him 1 more dose of pain medication, 1 mg of morphine Differential Diagnosis Differential Diagnoses: The differential diagnosis associated with the presentation includes (UTI, pyelonephritis, kidney stone, musculoskeletal pain) Admission/Observation Consideration of admission/observation: Escalation of care including admission/observation considered (Given patient's presentation and symptoms and level of pain, admission considered) Lab Data MDM Lab Attestation statement: I reviewed the patient's lab results. 08/11/23 23:16 08/11/23 23:16 Labs: Lab Results 08/11/23 08/12/23 Range/Units 23:16 01:25 WBC 6.0 (4.8-10.8) X10*3/uL RBC 5.11 (4.60-5.80) X10*6/uL Hgb 14.1 (14.0-18.0) g/dl Hct 42.2 (42.0-52.0) % MCV 82.6 (80.0-98.0) fL MCH 27.6 (27.0-33.0) pg MCHC 33.4 (31.0-36.0) g/dl RDW 13.2 (11.0-16.0) % Plt Count 178 (160-400) X10*3/uL MPV 9.7 (9.4-12.4) fL Immature Gran % (Auto) 0.3 (0.0-0.4) % Neut % (Auto) 62.8 (45-73) % Lymph % (Auto) 25.2 (20-40) % [place] % (Auto) 6.9 (2-11) % Eos % (Auto) 4.5 H (0-4) % Baso % (Auto) 0.3 (0-2) % Lymph # (Auto) 1.5 (1.2-4.9) X10*3/uL [place] # (Auto) 0.4 (0.1-1.2) X10*3/uL Eos # (Auto) 0.3 (0.0-0.4) X10*3/uL Baso # (Auto) 0.0 (0.0-0.2) X10*3/uL Abs Immat Gran (auto) 0.02 (0.00-0.03) X10*3/uL Absolute Neuts (auto) 3.7 (2.0-8.3) x10*3/uL Absolute Nucleated RBC 0.000 (0.0-0.012) X10*3/uL Nucleated RBC % (auto) 0.0 (0.0-0.2) /100WBC Sodium 141 (135-145) mmol/L Potassium 3.7 (3.3-5.1) mmol/L Chloride 108 (96-108) mmol/L Carbon Dioxide 23 (22-29) mmol/L Anion Gap 14 (12-20) BUN 15 (9-16) mg/dL Creatinine 0.86 (0.5-1.4) mg/dL Estim Creat Clear Calc 98.0 Estimated GFR > 60 Random Glucose 114 (60-115) mg/dL Calcium 9.1 D (8.4-10.2) mg/dL Total Bilirubin 0.9 (0.0-1.0) mg/dL AST 22 (5-37) U/L ALT 49 H (0-40) U/L Alkaline Phosphatase 96 (39-117) U/L Total Protein 7.1 (6.5-8.0) g/dL Albumin 4.2 (3.5-5.0) g/dL Lipase 25 (8-78) U/L Urine Color Yellow Urine Appearance Clear Urine pH 7.0 (5.0-9.0) Ur Specific [place] 1.025 (1.005-1.025) Urine Protein 30 (1+) H (Neg-Trace) mg/dL Urine Glucose (UA) Negative (Negative) mg/dL Urine Ketones Trace (Negative) mg/dL Urine Blood Large (3+) H (Negative) Urine Nitrite Negative (Negative) Ur Leukocyte Esterase Trace H (Negative) Urine RBC >20 H (0-2) /HPF Urine WBC 0-5 (0-5) /HPF Ur Squamous Epith Cells 0-2 (0-2) /HPF Urine Bacteria None Seen (None Seen) Hyaline Casts 0-2 (0-2) /LPF Independent Interpretation I performed an independent interpretation of an: CT Scan Radiology Impression Discussion of test interpretation with radiology: I have reviewed the radiologist's reading. Radiologist Impression: FINDINGS: LUNG BASES: Minimal bibasilar atelectasis. Coronary artery calcifications are present. LIVER, GALLBLADDER, AND BILIARY TREE: The liver is normal in size, shape, and attenuation. No focal hepatic lesion or biliary ductal dilatation is identified on this noncontrast exam. The gallbladder is unremarkable with no evidence of radiopaque gallstones, gallbladder wall thickening, or obvious pericholecystic inflammatory changes. PANCREAS: Unremarkable. SPLEEN: Unremarkable. ADRENAL GLANDS: Unremarkable. KIDNEYS AND URETERS: There is a 2 mm calculus at the left ureterovesicular junction with mild hydronephrosis. No right-sided hydronephrosis or obstructing calculus. BLADDER: Unremarkable. GASTROINTESTINAL TRACT: No evidence of bowel obstruction or significant wall thickening. The appendix is unremarkable. No free fluid or free air is seen. ABDOMINAL WALL: Small fat-containing inguinal hernias. LYMPH NODES: Normal. VASCULAR: Scattered atherosclerotic calcifications. PELVIC VISCERA: Unremarkable. OSSEOUS STRUCTURES: Interbody fusion noted at L4-L5. CT/CT abdomen pelvis wo IV con IMPRESSION: 1. Left ureterovesicular junction calculus measuring 2 mm with mild hydronephrosis. 2. Coronary artery calcifications. Correlation with cardiac risk factors is recommended. Prescription Management I considered prescription management with: Other Flomax was considered. But patient is already taking terazosin Medications Administered Discontinued Medications Generic Name Dose Route Start Last Admin Trade Name Freq PRN Reason Stop Dose Admin Cefuroxime Axetil 250 mg 08/12/23 04:08 08/12/23 04:29 Cefuroxime Axetil 250 Mg Tablet PO 08/12/23 04:09 250 mg ONCE ONE Administration Sodium Chloride 1,000 mls @ 999 mls/hr 08/12/23 04:08 08/12/23 04:29 Ns IVCONT 08/12/23 05:08 999 mls/hr .Q1H1M ONE Administration Ketorolac Tromethamine 30 mg 08/12/23 04:08 08/12/23 04:28 Ketorolac Tromethamine 30 Mg/Ml Vial IVPUSH 08/12/23 04:09 30 mg ONCE ONE Administration Ondansetron HCl 4 mg 08/12/23 04:08 08/12/23 04:28 Ondansetron Hcl 4 Mg/2 Ml Vial IVPUSH 08/12/23 04:09 4 mg ONCE ONE Administration Critical Care Time Critical Care Time Critical Care Time: Yes Total Critical Care Time: 45 Attestation: I have personally provided critical care time. Time includes review of lab data, radiology results, discussion with consultants, and monitoring for potential decompensation. Intervention performed as documented. Discharge Plan Discharge Clinical Impression: Acute UTI, Ureterolithiasis Patient Disposition: Home, Self-Care Instructions: Urinary Tract Infection in Men (ED), Ureteral Stones (ED) Additional Instructions: Please follow-up with your primary care physician tomorrow. If you have any worsening or new symptoms, please return to the emergency room or call 911 Prescriptions: New cefuroxime axetil 250 mg tablet 250 mg PO BID Qty: 14 0RF ketorolac 10 mg tablet 10 mg PO Q8H PRN (Reason: pain) Qty: 10 0RF Rx Instructions: Do not use this medication with NSAIDs. ondansetron 4 mg tablet,disintegrating 4 mg PO Q6H PRN (Reason: nausea and vomiting) Qty: 14 0RF No Action terazosin 5 mg capsule 5 mg PO BEDTIME 90 Days Qty: 90 1RF finasteride 5 mg tablet 5 mg PO DAILY 90 Days Qty: 90 2RF famotidine 40 mg tablet 40 mg PO BEDTIME Qty: 90 3RF pantoprazole 40 mg tablet,delayed release (DR/EC) 40 mg PO BID Qty: 60 3RF atorvastatin 80 mg tablet 80 mg PO BEDTIME aspirin 81 mg tablet,delayed release (DR/EC) 81 mg PO QAM propranolol 10 mg tablet 10 mg PO BID nitroglycerin 0.4 mg tablet, sublingual 0 mg sublingual melatonin 3 mg tablet 3 mg PO BEDTIME levetiracetam 500 mg tablet 500 mg PO BID Certavite-Antioxidant 18-400 mg-mcg tablet 1 tab PO QAM trazodone 50 mg tablet PO primidone 50 mg tablet 50 mg PO BEDTIME docusate sodium 100 mg capsule 100 mg PO DAILY topiramate 25 mg capsule,extended release 24hr 25 mg PO DAILY Linzess 290 mcg capsule 290 mcg PO QAM Qty: 30 4RF fluoxetine 40 mg capsule 80 mg PO DAILY
[2023-08-12] MEDS: Ketorolac Tromethamine 30 MG/ML VIAL IVPUSH (04:28)
[2023-08-12] MEDS: ondansetron HCL 4 MG/2 ML VIAL IVPUSH (04:28)
[2023-08-12] MEDS: cefuroxime axetiL 250 MG TABLET PO (04:29)
[2023-08-12] MEDS: 0.9 % Sodium Chloride 1,000 ML 999 ML IVCONT (04:29)
[2023-08-12] MEDS: Morphine Sulfate 2 MG/ML CARTRIDGE 1 MG IVPUSH (05:48)
[2023-08-12 06:10] VITALS: BP 120/67; PULSE 85; RESP 18; TEMP 36.6; O2SAT 95
== END 2023-08-12 06:43 | disposition home or self-care (01) ==
PROVIDERS: Emergency Provider Emergency Medicine
DX: N39.0 Urinary tract infection, site not specified (principal); N20.1 Calculus of ureter
CPT/HCPCS: 36415; 74176; 80053; 81001; 83690; 85025; 96374; 96375; 99284; 99285; J1885; J2270; J2405

== ENCOUNTER 2023-09-29 08:43 | Outpatient (REF) | payer OTHER, SELFPAY ==
--- NOTE | ~2023-09-29 | CT_ITS ---
EXAMINATION: CT ENTEROGRAPHY ABDOMEN AND PELVIS WITH CONTRAST CLINICAL INFORMATION: Left lower quadrant abdominal pain COMPARISON: CT abdomen from 08/12/2023 TECHNIQUE: Study performed with oral VoLumen (1350 mL) and 480 mL of water to distend the abdomen. The patient was injected with 85 mL Omnipaque 350 intravenous contrast which was administered without adverse effect. Coronal and sagittal reformatted images were obtained at the technologist's workstation. This CT examination was performed using dose optimization techniques as appropriate, variously including the following: *Automated exposure control *Adjustment of mA and/or kV according to patient size (this includes techniques or standardized protocols for targeted exams where dose is matched to indication/reason for exam; i.e. extremities or head) *Use of iterative reconstruction technique DLP: 544 mGy-cm FINDINGS: GASTROINTESTINAL FINDINGS: Stomach: Well-distended and normal in appearance. Small intestine: Satisfactorily distended and normal in appearance. Large intestine: Well-distended and normal in appearance. No perirectal changes demonstrated. The appendix is normal. Additional findings: No abnormal enhancement of the vasa recta or significant mesenteric or retroperitoneal lymphadenopathy is seen. No abdominal abscess or fistulous tract demonstrated. ABDOMINAL AND PELVIC CT FINDINGS: Liver, gallbladder, biliary tract: Liver is homogeneous without masses or ductal dilatation, not enlarged. The gallbladder is well distended without stones. There is no biliary ductal dilatation. Pancreas: Pancreas is unremarkable Spleen: Spleen is of normal size and shape. Adrenal glands and kidneys: There is no adrenomegaly. Both kidneys demonstrate normal attenuation no evidence of hydroureteronephrosis or nephrolithiasis. Ureters and bladder: Unremarkable. Lymphovascular structures: Unremarkable. Bones: Patient is status post fusion at the level of and L4-L5. Lung bases: Clear CT/CT enterography IMPRESSION: Unremarkable examination.
[2023-09-29] MEDS: iohexoL 350 MG/ML 100 ML INFUS..BTL IV (10:53)
[2023-09-29] MEDS: Sorbitol/Mannit/Xanth Imaging 500 ML LIQUID 1500 ML PO (10:53)
[2023-09-29 13:28] LABS: Creatinine POC 0.9 mg/dL (0.5-1.4); GFR POC > 60
== END 2023-09-29 08:44 | disposition home or self-care (01) ==
LOC: HO.CT 08:43
PROVIDERS: Visit Provider Nurse Practitioner Family
DX: R10.32 Left lower quadrant pain (principal); R19.5 Other fecal abnormalities
CPT/HCPCS: 74177; 82565; Q9967

== ENCOUNTER 2023-10-22 14:03 | Emergency (ER) | payer OTHER, SELFPAY ==
--- NOTE | ~2023-10-22 | CT_ITS ---
EXAMINATION: CT HEAD WITHOUT CONTRAST CLINICAL INFORMATION: Left eye blurred vision COMPARISON: CT head from 05/20/2020 TECHNIQUE: Contiguous axial imaging was performed from the skull base to vertex without intravenous administration of contrast. This CT examination was performed using dose optimization techniques as appropriate, variously including the following: *Automated exposure control *Adjustment of mA and/or kV according to patient size (this includes techniques or standardized protocols for targeted exams where dose is matched to indication/reason for exam; i.e. extremities or head) *Use of iterative reconstruction technique DLP: 687 mGy-cm FINDINGS: There is no evidence of acute intracranial hemorrhage or territorial infarction. Chronic white matter small vessel ischemic changes. No abnormal mass effect or midline shift is seen. Salas to white matter differentiation is well preserved. No extra-axial fluid collections are identified. The ventricles are normal in size. There is no abnormal attenuation within the brain parenchyma. The osseous structures and soft tissues are normal. Mucosal retention cyst versus polyp right maxillary sinus. The mastoid air cells and visualized portions of the paranasal sinuses are well aerated. CT/CT head/brain wo IV con IMPRESSION: 1. No acute intracranial pathology. 2. Chronic white matter small vessel ischemic changes.
--- NOTE | ~2023-10-22 | XR_ITS ---
EXAMINATION: XR CHEST CLINICAL INFORMATION: Chest pain COMPARISON: 11/09/2022 TECHNIQUE: 2 views of the chest were obtained. FINDINGS: No significant abnormality is noted involving the heart, lungs, mediastinum, bony thorax or soft tissues. XR/XR chest 2V IMPRESSION: Unremarkable examination.
--- NOTE | 2023-10-22 14:07 | ECG_ITS ---
Test Reason : CHEST PAIN Blood Pressure : / mmHG Vent. Rate : 060 BPM Atrial Rate : 060 BPM P-R Int : 162 ms QRS Dur : 092 ms QT Int : 396 ms P-R-T Axes : 030 003 015 degrees QTc Int : 396 ms Normal sinus rhythm Normal ECG When compared with ECG of 09-NOV-2022 14:11, Nonspecific T wave abnormality no longer evident in Lateral leads Referred By: Nita Mercer Electronically Signed By:VICKI NIEVES MD
--- OUTSIDE RECORDS SUMMARY | 2023-10-22 14:16 | XMS_ITS | Continuity of Care Document ---
Author Organization [facility] Neurosur[facility] y [address] [place] [address]- Care Team Providers Care Hypo Dipper Name Role Phone Jamari Navarro MD, Sherri Solano Primary Care Greyson figueroa Encounter [facility] Date(s): 04/01/23 - 05/01/23 [facility] [address] [place] [address] Drive, [address] [place], [place] [address] Allergies, Adverse Reactions, Alerts No Known Medication Allergies Substance Reaction Severity Status Fruit mouth itches Active Medications Amitiza By Mouth, 2 times a day, 0 Refills, Maintenance, 04/16/15 7:53:32 Start Date: 04/16/15 Status: Ordered Amitiza 24 mcg oral capsule 1 capsule = 24 mcg, By Mouth, 2 times a day, # 60 capsule, 0 Refills, Maintenance, 05/21/20 0:52:00EST, Capsule, Partial fill upon patient request if the prescription is for a schedule II opioid drug. Start Date: 05/21/20 Status: Ordered Amitiza 24 mcg oral capsule 1 capsule = 24 mcg, By Mouth, 2 times a day, 0 Refills, Maintenance, 08/06/19 8:18:00 EDT Start Date: 08/06/19 Status: Ordered Aspir 81 = 81 mg, By Mouth, Daily, 0 Refills, Maintenance, 04/16/15 7:55:15 Start Date: 04/16/15 Status: Ordered Aspirin Low Dose 81 mg oral delayed release tablet 1 tablet = 81 mg, By Mouth, Daily, # 30 tablet, 0 Refills, Maintenance, 05/21/20 0:52:00 EST, EC Tablet, Partial fill upon patient request if the prescription is for a schedule II opioid drug. Start Date: 05/21/20 Status: Ordered atorvastatin 80 mg oral tablet 1 tablet = 80 mg, By Mouth, Daily at bedtime Start Date: 05/21/20 Status: Ordered atorvastatin 80 mg oral tablet 1 tablet = 80 mg, By Mouth, Daily, 0 Refills, Maintenance, 08/06/19 8:17:00 EDT Start Date: 08/06/19 Status: Ordered CertaVite Senior By Mouth, Daily, 0 Refills, Maintenance, 08/06/19 8:17:00 EDT Start Date: 08/06/19 Status: Ordered CertaVite with Antioxidants oral tablet 1 tablet, By Mouth, Daily Start Date: 05/21/20 Status: Ordered Colace sodium 100 mg oral capsule 100 mg, 1, capsule, By Mouth, 2 times a day, # 60 capsule, Refills 0, Tot. Refills 0, Maintenance, 05/21/20 16:03:00 EST, Route to Pharmacy Electronically, [facility], Partial fill uponpatient request if the prescription is for a schedu... Start Date: 05/21/20 Status: Ordered Fluoxetine By Mouth, 0 Refills, Maintenance, 04/16/15 7:53:09 Start Date: 04/16/15 Status: Ordered FLUoxetine 10 mg oral tablet 1 tablet = 10 mg, By Mouth, Daily, 0 Refills, Maintenance, 08/06/19 8:18:00 EDT Start Date: 08/06/19 Status: Ordered FLUoxetine 40 mg oral capsule 1 capsule = 40 mg, By Mouth, Daily, # 30 capsule, 0 Refills, Maintenance, 05/21/20 0:53:00 EST, Capsule, Partial fill upon patient request if the prescription is for a schedule II opioid drug. Start Date: 05/21/20 Status: Ordered isosorbide mononitrate 30 mg oral tablet, extended release 1 tablet = 30 mg, By Mouth, Daily in AM, # 30 tablet, 0 Refills, Maintenance, 04/16/15 7:54:49, ER Tablet Start Date: 04/16/15 Status: Ordered Metoprolol XL Tablet By Mouth, Daily, Maintenance, 04/16/15 7:55:02 Start Date: 04/16/15 Status: Ordered nitroglycerin 0.4 mg sublingual tablet 1 tablet = 0.4 mg, Sublingual, Every 5 minutes, PRN for chest pain, # 100 tablet, 0 Refills, Maintenance, Tablet Start Date: 02/19/13 Status: Ordered pravastatin 80 mg oral tablet 1 tablet = 80 mg, By Mouth, Daily at bedtime, 0 Refills, Maintenance Start Date: 02/08/13 Status: Ordered tamsulosin 0.4 mg oral capsule 0.4 mg, 1, capsule, By Mouth, Daily, # 30 capsule, Refills 0, Maintenance, 05/21/20 0:53:00 EST, Partial fill upon patient request if the prescription is for a schedule II opioid drug. Start Date: 05/21/20 Status: Ordered tamsulosin 0.4 mg oral capsule 1 capsule = 0.4 mg, By Mouth, Daily, 0 Refills, Maintenance Start Date: 02/08/13 Status: Ordered topiramate 25 mg oral capsule 2 capsule = 50 mg, By Mouth, Daily, # 180 capsule, 0 Refills, Maintenance, 04/16/15 7:54:02, Capsule Start Date: 04/16/15 Status: Ordered tramadol 50 mg oral tablet 1 tablet = 50 mg, By Mouth, 4 times a day, 0 Refills, Maintenance Start Date: 02/08/13 Status: Ordered Social History Social History Type Response Smoking Status Never (less than 100 in lifetime) entered on: 04/21/23 Sex Patient Care team information Care Team Personnel Name: Jamari Navarro MD, Sherri Solano Position: [facility] Outreach Member Role: PCP Address: Address: [address] [place] [id number]- Name: Irma Ellis RN Position: [facility] SN RN Member Role: Primary Care Nurse Care Team Related Persons Name: CAPO HERRERA Address: home [address] [place] [address] Name: WILLIAM HERRERA Address: home [address] [place] [address]
--- OUTSIDE RECORDS SUMMARY | 2023-10-22 14:16 | XMS_ITS | Continuity of Care Document ---
Author Organization [facility] y [address], [address] [place] [address]- Care Team Providers Care Psych Specialist Name Role Phone Jamari Navarro MD, Sherri Solano Primary Care Greyson figueroa [place] [facility] [place] [facility] [address] [place] [address] [address], [address] [place], [place] [address] Attending Physician: Daisy Neal MD Referring Physician: Naveen [employer]ANT SUPERINTENDENT, Lorenza Allergies, Adverse Reactions, Alerts No Known Medication [...] 05/21/20 16:03:00 EST, Route to Pharmacy Electronically, [facility], Partial fill uponpatient request if [...] Refills, Maintenance Start Date: 02/08/13 Status: Ordered Vital Signs Most recent to oldest [Reference Range]: 1 Height 175 cm (04/21/23 1:25 PM) Weight 86.5 kg (04/21/23 1:25 PM) Body Mass Index [18.5-24.99 kg/m2] 28.24 kg/m2 *H* (04/21/23 1:25 PM) Social History Social History Type Response Smoking Status Never (less than 100 in lifetime) entered on: 04/21/23 Sex Patient Care team information Care Team Personnel Name: Sherri Selby MD Position: [facility] Outreach Member Role: PCP Address: Address: [address] [place] [id number]- Name: Irma Ellis RN Position: [facility] SN RN Member Role: Primary Care Nurse Care Team Related Persons Name: CAPO HERRERA Address: home [address] [place] [address] Name: WILLIAM HERRERA Address: home [address] [place] [address]
--- OUTSIDE RECORDS SUMMARY | 2023-10-22 14:16 | XMS_ITS | Continuity of Care Document ---
Author Organization [facility] Neuro[facility] y [address], [address] [place] [address]- Care Team Providers Care Staff Counsel Name Role Phone Jamari Navarro MD, Sherri Solano Primary Care Greyson figueroa [place] [facility] [place]12/23 [facility] [address] [place] [address] Drive, [address] [place], [place] [address] Attending Physician: Daisy Neal MD Referring Physician: Naveen SENIOR SOFTWARE DEVELOPMENT MANAGER, Lorenza Allergies, Adverse Reactions, Alerts No Known [...] 05/21/20 16:03:00 EST, Route to Pharmacy Electronically, [facility], Partial fill uponpatient request if [...] Team Personnel Name: Sherri Selby MD Position: [facility] Outreach Member Role: PCP Address: Address: [address] [place] [address]- Name: Irma Ellis RN Position: [facility] SN RN Member Role: Primary Care Nurse Care Team Related Persons Name: CAPO HERRERA Address: home [address] [place] [address] Name: WILLIAM HERRERA Address: home [address] [place] [address]
--- OUTSIDE RECORDS SUMMARY | 2023-10-22 14:16 | XMS_ITS | Continuity of Care Document ---
Author Organization [facility] [address], [address] [place] [address]- Care Team Providers Care Record Librarian Name Role Phone Jamari Navarro MD, Sherri Solano Primary Care Greyson figueroa Encounter [facility] Date(s): 04/21/23 - 05/21/[address], [address] [place], [place] [address] Attending Physician: Admtr, Surjit Admitting Physician: Admtr, Ar8 Referring Physician: Admtr, Ar8 Allergies, Adverse Reactions, Alerts No Known Medication [...] 05/21/20 16:03:00 EST, Route to Pharmacy Electronically, [facility], Partial fill uponpatient request if [...] 100 in lifetime) entered on: 04/21/23 Sex Radiology * Event Display: MRI Spine, Non- BH Authored Date: [id number] Patient Care team information Care Team Personnel Name: Jamari Navarro MD, Sherri Solano Position: [facility] Outreach Member Role: PCP Address: Address: [address] [place] [id number]- Name: Irma Ellis RN Position: [facility] SN RN Member Role: Primary Care Nurse Care Team Related Persons Name: CAPO HERRERA Address: home [address] [place] [address] Name: WILLIAM HERRERA Address: home [address] [place] [address]
[2023-10-22 15:06] VITALS: BP 94/76; PULSE 65; RESP 16; TEMP 36.4; O2SAT 96; BMI 29.9
--- NOTE | 2023-10-22 15:06 | ED.CHESTPAIN ---
HPI - Chest Pain General Chief Complaint: Chest Pain Stated Complaint: chest pain Time Seen by Provider: 10/22/23 16:42 Source: patient Mode of arrival: ambulatory History of Present Illness ED Provider: Dr Paredes HPI narrative: 63-year-old male who presents today with reportedly having an episode of chest discomfort during an argument last Tuesday, resolved after 10 minutes and patient denies any other associated symptoms. Patient then states that this morning he woke up with chest discomfort, has resolved at this time but states he has been experiencing some lightheadedness and nausea and reports left eye pressure without any eye derangements. Related Data Home Medications ?Medication ?Instructions ?Recorded ?Confirmed aspirin 81 mg tablet,delayed 81 mg PO QAM 12/08/20 06/15/23 release atorvastatin 80 mg tablet 80 mg PO BEDTIME 12/08/20 06/15/23 propranolol 10 mg tablet 10 mg PO BID 12/19/20 06/15/23 melatonin 3 mg tablet 3 mg PO BEDTIME 08/16/22 06/15/23 nitroglycerin 0.4 mg sublingual 0 mg sublingual 08/16/22 06/15/23 tablet levetiracetam 500 mg tablet 500 mg PO BID 11/15/22 06/15/23 multivitamin-ferrous 1 tab PO QAM 11/15/22 06/15/23 fumarate-folic acid 18 mg-400 mcg tablet (Certavite-Antioxidant) fluoxetine 40 mg capsule 80 mg PO DAILY 12/20/22 06/15/23 trazodone 50 mg tablet mg PO 08/01/23 docusate sodium 100 mg capsule 100 mg PO DAILY 08/03/23 primidone 50 mg tablet 50 mg PO BEDTIME 08/03/23 topiramate 25 mg capsule,extended 25 mg PO DAILY 08/03/23 release 24 hr Previous Rx's ?Medication ?Instructions ?Recorded famotidine 40 mg tablet 40 mg PO BEDTIME #90 tabs 06/23/23 finasteride 5 mg tablet 5 mg PO DAILY 90 days #90 tabs 06/23/23 pantoprazole 40 mg tablet,delayed 40 mg PO BID #60 tabs 08/02/23 release linaclotide 290 mcg capsule 290 mcg PO QAM #30 caps 08/03/23 (Linzess) cefuroxime axetil 250 mg tablet 250 mg PO BID #14 tabs 08/12/23 ketorolac 10 mg tablet 10 mg PO Q8H PRN pain #10 tabs 08/12/23 ondansetron 4 mg disintegrating 4 mg PO Q6H PRN nausea and 08/12/23 tablet vomiting #14 tabs terazosin 5 mg capsule 5 mg PO BEDTIME 90 days #90 caps 09/29/23 Allergies Allergy/AdvReac Type Severity Reaction Status Date / Time No Known Allergies Allergy Verified 10/22/23 15:07 Review of Systems Review of Systems: Pertinent positives and negatives as stated in [facility] Past Medical History Source: nursing notes reviewed Medical History CAD (coronary artery disease) Surgical History Hx of colonoscopy History of esophagogastroduodenoscopy (EGD) Family History Family History Father Cancer Mother Cancer Social History Social History Alcohol intake: never Patient Tobacco Use Status: Never used Tobacco Advance Directives: Yes Advance Directives on File: Yes Advance Directives Date on File: 02/25/21 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 Physical Exam Vital Signs: Vital Signs: Last Vital Signs Temp 97.7 F 10/22/23 16:22 Pulse 54 10/22/23 16:22 Resp 18 10/22/23 16:22 BP 131/76 10/22/23 16:22 Pulse Ox 96 10/22/23 16:22 O2 Del Method Room Air 10/22/23 16:22 BMI result Body Mass Index 29.9 VITAL SIGNS: Reviewed. GENERAL: Well developed, well nourished, in no acute distress. HEAD: Normocephalic/atraumatic EYES: PERRLA, EOMI, there is no conjunctival injection, no fixed pupil EARS: Ext canals without abnormality NOSE: Nares patent bilateral OROPHARYNX: no oral lesions noted, posterior pharynx clear NECK: Supple, no adenopathy LUNGS: Normal breath sounds. No adventitious sounds or accessory muscle use. SpO2<96> CARDIOVASCULAR: Regular rate and rhythm without noted murmurs, no JVD or lower extremity edema. ABDOMEN: Soft, non-tender, non-distended with bowel sounds. MUSCULOSKELETAL: No tenderness, deformities, or effusions noted on gross inspection. EXTREMITIES: No cyanosis, clubbing or edema. SKIN: Inspection of the skin reveals no rashes NEUROLOGIC: Alert and oriented x 4. Strength and sensation to light touch were grossly intact x 4. Course Course Course Narrative: This is a Rapid Medical Examination (RME) performed by Aggie Mercer PA-C in triage. Full HPI, ROS, assessment and treatment plan per primary provider in the Main ED. 63 yo male with history of BPH, HLD, pancreatitis, PUD, CAD, palpitations, kidney stones who presents to the ER for evaluation of nonradiating, intermittent chest pain for the last couple of days, today with dizziness and nausea when he woke up. Also endorses SOB. Mild chest pain currently, 5/10 and earlier was 8/10. Also reports a pressure in the left eye with blurred vision for the last couple of days, worse today. He c/o generalized weakness Plan: EKG, labs, CXR, CT head Medical Decision Making Medical Decision Making [facility] Narrative: 63-year-old male with history and clinical presentation, DDX: Angina, anxiety, no clinical suspicion for pneumonia, patient denies any double vision or loss of vision or decreased acuity. I reviewed all investigations as well as prior echocardiogram which was conducted on 08/06-EF-60% without other acute findings. Patient is currently on a daily aspirin. Hematologic indices show a stable baseline without leukocytosis/anemia/thrombocytopenia. Chemistry indices negative for JESSICA/electrolyte or liver enzyme derangements. I sensitivity troponin is undetectable and given the timing from this morning without acute EKG changes not consistent with ACS and patient is currently asymptomatic for chest pain. BNP is within normal limits and chest x-ray as interpreted by me does not demonstrate any infiltrate or venous congestion. CT scan negative for intracranial hemorrhage or mass effect. Urinalysis is negative for UTI or hematuria. HEART Score: 2 My interpretation is that patient may have been experiencing migraine related symptoms, but patient understands that he will need to follow-up with cardiology by calling the office on Tuesday morning to set up an appointment for re-evaluation. This may have been anxiety or stress induced chest discomfort. Differential Diagnosis Differential Diagnoses: The differential diagnosis associated with the presentation includes Please see the discussion above Admission/Observation Consideration of admission/observation: Escalation of care including admission/observation considered Please see the discussion above Lab Data MDM Lab Attestation statement: I reviewed the patient's lab results. Please see the discussion above 10/22/23 15:53 10/22/23 15:53 Labs: Lab Results 10/22/23 10/22/23 Range/Units 15:53 18:35 WBC 3.8 L (4.8-10.8) X10*3/uL RBC 5.02 (4.60-5.80) X10*6/uL Hgb 14.0 (14.0-18.0) g/dl Hct 42.6 (42.0-52.0) % MCV 84.9 (80.0-98.0) fL MCH 27.9 (27.0-33.0) pg MCHC 32.9 (31.0-36.0) g/dl RDW 13.1 (11.0-16.0) % Plt Count 172 (160-400) X10*3/uL MPV 9.2 L (9.4-12.4) fL Immature Gran % (Auto) 0.0 (0.0-0.4) % Neut % (Auto) 35.3 L (45-73) % Lymph % (Auto) 52.5 H (20-40) % Haines % (Auto) 9.0 (2-11) % Eos % (Auto) 2.7 (0-4) % Baso % (Auto) 0.5 (0-2) % Lymph # (Auto) 2.0 (1.2-4.9) X10*3/uL Haines # (Auto) 0.3 (0.1-1.2) X10*3/uL Eos # (Auto) 0.1 (0.0-0.4) X10*3/uL Baso # (Auto) 0.0 (0.0-0.2) X10*3/uL Abs Immat Gran (auto) 0.00 (0.00-0.03) X10*3/uL Absolute Neuts (auto) 1.3 L (2.0-8.3) x10*3/uL Absolute Nucleated RBC 0.000 (0.0-0.012) X10*3/uL Nucleated RBC % (auto) 0.0 (0.0-0.2) /100WBC Sodium 141 (135-145) mmol/L Potassium 4.5 D (3.3-5.1) mmol/L Chloride 108 (96-108) mmol/L Carbon Dioxide 27 (22-29) mmol/L Anion Gap 11 L (12-20) BUN 17 H (9-16) mg/dL Creatinine 1.02 (0.5-1.4) mg/dL Estim Creat Clear Calc 83.0 Estimated GFR > 60 Random Glucose 92 (60-115) mg/dL Calcium 9.5 (8.4-10.2) mg/dL Magnesium 2.2 (1.6-2.6) mg/dL Total Bilirubin 0.8 (0.0-1.0) mg/dL Direct Bilirubin 0.2 (0.0-0.5) mg/dL AST 19 (5-37) U/L ALT 41 H (0-40) U/L Alkaline Phosphatase 91 (39-117) U/L Troponin I High Sens < 2.7 (<3.5-35.0) ng/L B-Natriuretic Peptide < 10 (<100) pg/mL Total Protein 7.2 (6.5-8.0) g/dL Albumin 4.2 (3.5-5.0) g/dL Urine Color Dark Yellow Urine Appearance Clear Urine pH 6.0 (5.0-9.0) Ur Specific Grayling >= 1.030 H (1.005-1.025) Urine Protein Negative (Neg-Trace) mg/dL Urine Glucose (UA) Negative (Negative) mg/dL Urine Ketones Trace (Negative) mg/dL Urine Blood Negative (Negative) Urine Nitrite Negative (Negative) Ur Leukocyte Esterase Negative (Negative) Independent Interpretation I performed an independent interpretation of an: EKG Interpretation: Normal sinus rhythm, HR -60, no STEMI, WA/QRS/QTC is within normal limits. There are no acute changes when compared to prior EKG from 10/2022. Radiology Impression Discussion of test interpretation with radiology: I have reviewed the radiologist's reading. Radiologist Impression: Please see the discussion above External Record Review External record reviewed: Outpatient record, Prior outpatient labs and Prior outpatient radiology Chronic Conditions Patient?s care impacted by: Hypertension Critical Care Time Critical Care Time Critical Care Time: Yes Total Critical Care Time: 45 Attestation: I personally attest to this time spent taking care of the patient. Discharge Plan Discharge Clinical Impression: Chest pain, Dizziness Patient Disposition: Home, Self-Care Instructions: Chest Pain (ED), Dizziness (ED) Additional Instructions: 1. Resume all home medications as prescribed. 2. Please call cardiology on Tuesday morning to set up an appointment for re-evaluation. Do not hesitate to return to the emergency room for any worsening of symptoms. Prescriptions: No Action finasteride 5 mg tablet 5 mg PO DAILY 90 Days Qty: 90 2RF famotidine 40 mg tablet 40 mg PO BEDTIME Qty: 90 3RF pantoprazole 40 mg tablet,delayed release (DR/EC) 40 mg PO BID Qty: 60 3RF terazosin 5 mg capsule 5 mg PO BEDTIME 90 Days Qty: 90 1RF cefuroxime axetil 250 mg tablet 250 mg PO BID Qty: 14 0RF ketorolac 10 mg tablet 10 mg PO Q8H PRN (Reason: pain) Qty: 10 0RF Rx Instructions: Do not use this medication with NSAIDs. ondansetron 4 mg tablet,disintegrating 4 mg PO Q6H PRN (Reason: nausea and vomiting) Qty: 14 0RF atorvastatin 80 mg tablet 80 mg PO BEDTIME aspirin 81 mg tablet,delayed release (DR/EC) 81 mg PO QAM propranolol 10 mg tablet 10 mg PO BID nitroglycerin 0.4 mg tablet, sublingual 0 mg sublingual melatonin 3 mg tablet 3 mg PO BEDTIME levetiracetam 500 mg tablet 500 mg PO BID Certavite-Antioxidant 18-400 mg-mcg tablet 1 tab PO QAM trazodone 50 mg tablet PO primidone 50 mg tablet 50 mg PO BEDTIME docusate sodium 100 mg capsule 100 mg PO DAILY topiramate 25 mg capsule,extended release 24hr 25 mg PO DAILY Linzess 290 mcg capsule 290 mcg PO QAM Qty: 30 4RF fluoxetine 40 mg capsule 80 mg PO DAILY Referrals: Sherri Selby MD [Primary Care Provider] - Print Language: Italian
[2023-10-22 16:01] LABS: Basophils Percent Auto 0.5 % (0-2); Eosinophils Absolute Auto 0.1 X10*3/uL (0.0-0.4); Eosinophils Percent Auto 2.7 % (0-4); Hematocrit 42.6 % (42.0-52.0); Lymphocytes Percent Auto 52.5 % (20-40); MANUAL DIFF FLAG NO; Mean Corpuscular HGB Conc 32.9 g/dl (31.0-36.0); Mean Corpuscular Hemoglobin 27.9 pg (27.0-33.0); Mean Corpuscular Volume 84.9 fL (80.0-98.0); Mean Platelet Volume 9.2 fL (9.4-12.4); Monocytes Absolute Auto 0.3 X10*3/uL (0.1-1.2); Neutrophils Absolute Auto 1.3 x10*3/uL (2.0-8.3); Neutrophils Percent Auto 35.3 % (45-73); Platelet Count 172 X10*3/uL (160-400); Red Blood Count 5.02 X10*6/uL (4.60-5.80); Red Cell Distribution Width 13.1 % (11.0-16.0); White Blood Count 3.8 X10*3/uL (4.8-10.8)
[2023-10-22 16:16] LABS: Alanine Aminotransferase 41 U/L (0-40); Albumin Level 4.2 g/dL (3.5-5.0); Alkaline Phosphatase 91 U/L (39-117); Anion Gap 11 (12-20); Aspartate Amino Transferase 19 U/L (5-37); Bilirubin Direct 0.2 mg/dL (0.0-0.5); Bilirubin Total 0.8 mg/dL (0.0-1.0); Blood Urea Nitrogen 17 mg/dL (9-16); Calcium 9.5 mg/dL (8.4-10.2); Carbon Dioxide 27 mmol/L (22-29); Chloride 108 mmol/L (96-108); Estimated Glomerular Filt Rate > 60; Glucose Random 92 mg/dL (60-115); Magnesium 2.2 mg/dL (1.6-2.6); Potassium 4.5 mmol/L (3.3-5.1); Sodium 141 mmol/L (135-145); Total Protein 7.2 g/dL (6.5-8.0)
[2023-10-22 16:20] LABS: B Type Natriuretic Peptide < 10 pg/mL (<100)
[2023-10-22 16:22] VITALS: BP 131/76; PULSE 54; RESP 18; TEMP 36.5; O2SAT 96
[2023-10-22 16:40] LABS: Troponin-I High Sensitivity < 2.7 ng/L (<3.5-35.0)
[2023-10-22 18:45] LABS: Appearance Urine Clear; Color Urine Dark Yellow; Glucose Urine UA Negative (Negative); Leukocyte Esterase Urine Negative (Negative); Nitrite Urine Negative (Negative); Specific Gravity - Urine >= 1.030 (1.005-1.025); Urine Blood Negative (Negative); Urine Ketones Trace mg/dL (Negative); Urine Protein Negative (Neg-Trace)
[2023-10-22 19:10] VITALS: BP 149/80; PULSE 56; RESP 14; TEMP 36.5; O2SAT 97
== END 2023-10-22 19:19 | disposition home or self-care (01) ==
PROVIDERS: Physician Assistant; Emergency Provider Student in an Organized Health Care Education/Training Program; PCP Student in an Organized Health Care Education/Training Program
DX: R07.9 Chest pain, unspecified (principal); R42 Dizziness and giddiness; H53.8 Other visual disturbances; R53.1 Weakness; R06.02 Shortness of breath; E78.5 Hyperlipidemia, unspecified; Z79.82 Long term (current) use of aspirin; Z79.02 Long term (current) use of antithrombotics/antiplatelets; Z79.899 Other long term (current) drug therapy
CPT/HCPCS: 36415; 70450; 71046; 80048; 80076; 81003; 83735; 83880; 84484; 85025; 93005; 99283; 99284

== ENCOUNTER → 2023-10-22 14:07 | Outpatient (BNV) | payer OTHER, SELFPAY | PROVIDERS: Emergency Provider Student in an Organized Health Care Education/Training Program; PCP Student in an Organized Health Care Education/Training Program; Visit Provider Internal Medicine Cardiovascular Disease | DX: R07.9 Chest pain, unspecified (principal) | CPT/HCPCS: 93010 ==

== ENCOUNTER 2023-10-31 12:49 | Outpatient (REF) | payer OTHER, SELFPAY ==
--- NOTE | ~2023-10-31 | US_ITS ---
EXAMINATION: MM DIAGNOSTIC DIGITAL BREAST TOMOSYNTHESIS, BILATERAL US BREAST LIMITED, LEFT MAMMOGRAPHY: CLINICAL INFORMATION: 63-year-old male, palpable abnormalities left breast 6:00 axis anterior one third, and far inferomedial 8:00 aspect. Sister with breast cancer. COMPARISON: Mammography: 07/25/2019 along with targeted left breast ultrasound (same complaint 6:00 axis, benign lipomatous nodule versus lipoma). TECHNIQUE: Digital breast tomosynthesis is performed in both the craniocaudal and mediolateral oblique views along with computer-aided detection (CAD). Synthesized 2D images are generated from the tomosynthesis. In addition to standard views, 3-D spot compression left CC view x2, as well as a 3-D full-field left mediolateral view were obtained. This was followed by targeted left breast ultrasound of both areas. FINDINGS: The breasts are almost entirely fatty (ACR BI-RADS breast composition Category a). Both areas have been marked by the technologist with BB markers with aid of the patient. There are no masses, suspicious microcalcifications, or areas of architectural distortion in the left breast abutting the markers or elsewhere in either breast. There is no gynecomastia. No skin or axillary abnormalities. ULTRASOUND: CLINICAL INFORMATION: COMPARISON: 07/25/2019. TECHNIQUE: Using a high frequency linear transducer, targeted left breast ultrasound was performed in the 5:00 axis and far inferomedial axis, in the regions of palpable concern. Selected archived documentation. FINDINGS: LEFT BREAST: -There is fatty breast tissue. In the 6:00 axis, 2 cm from the nipple, there is a similar lipomatous nodule versus lipoma measuring 1.9 x 0.7 x 1.8 cm, consistent with the previously seen abnormality. This is benign. In the 8-9 o'clock axis, near the sternum far medial, there is a probable second lipomatous nodule measuring 1.2 x 0.4 x 0.5 cm, also benign. Both of these appear to correlate with the foci of palpable concern. No suspicious masses, cystic abnormalities, abnormal shadowing, or architectural distortion is identified in the left breast. No male gynecomastia is identified. US/US breast LT limited mamm only IMPRESSION: -Palpable abnormalities left breast appear to correlate with benign lipomatous nodules as detailed. No findings suspicious for malignancy. -No significant gynecomastia is identified. -Recommend clinical management and follow-up as necessary. OVERALL ASSESSMENT: Mammography: BI-RADS 2 - Benign Findings Ultrasound: BI-RADS 2 - Benign Findings RECOMMENDATION: 1. Patient should be managed based on the clinical impression.
--- NOTE | ~2023-10-31 | US_ITS ---
EXAMINATION: US EXTREMITY, NONVASCULAR CLINICAL INFORMATION: Left posterior upper mid thigh lump palpable. COMPARISON: None available. TECHNIQUE: Targeted ultrasound images were obtained by the six sigma black belt engineer of the area of concern as indicated by the patient in the posterior upper mid left thigh. Radiologist was not in attendance. Images were later provided for interpretation. FINDINGS: There is a 2.1 x 1.0 x 2.5 cm slightly hyperechoic, wider than tall, avascular mass in the area of concern indicated by the patient along the posterior aspect of the upper mid left thigh. US/US extremity nonvascular IMPRESSION: There is a 2.5 cm slightly hyperechoic, wider than tall, avascular mass in the area of concern indicated by the patient along the posterior aspect of the upper mid left thigh. Correlation with the clinical exam recommended to determine further management including possible additional imaging with MRI, surgical consultation and/or biopsy. Recommend follow-up ultrasound in 3 months
== END 2023-10-31 12:50 | disposition home or self-care (01) ==
LOC: HO.US 12:49
PROVIDERS: PCP Student in an Organized Health Care Education/Training Program; Visit Provider Student in an Organized Health Care Education/Training Program
DX: R22.42 Localized swelling, mass and lump, left lower limb (principal); N63.25 Unspecified lump in the left breast, overlapping quadrants; N63.24 Unspecified lump in the left breast, lower inner quadrant
CPT/HCPCS: 76642; 76882; 77062; 77066

== ENCOUNTER → 2023-10-31 15:30 | Outpatient (BNV) | payer OTHER, SELFPAY | PROVIDERS: PCP Student in an Organized Health Care Education/Training Program; Visit Provider Radiology Diagnostic Radiology | DX: N63.25 Unspecified lump in the left breast, overlapping quadrants (principal) | CPT/HCPCS: 76642; 77066; G0279 ==

== ENCOUNTER 2023-11-16 10:46 | Outpatient (AMB) | payer OTHER, SELFPAY ==
--- NOTE | 2023-11-16 10:53 | MHC.OFFVIS ---
Vital Signs 11/16/23 10:55 Height 5 ft 9 in Weight 198 lb BMI 29.2 BP 122/71 Blood Pressure Location Lt brachial Position Sitting Respiration 14 Pulse 77 Pulse Source Pulse Oximeter Pulse Oximetry (%) 95 Oxygen Delivery Method Room Air Intake Visit Reasons: CHRONIC LOW BACK PAIN W/O SCIATICA Instructor Bridge Required: Yes Instructor Bridge Name: [id number] [place] Allergies No Known Allergies Allergy (Verified 11/16/23 10:56) Medication List - Last Reconciled 11/16/23 by Jyoti Farley LPN aspirin 81 mg PO QAM atorvastatin 80 mg PO BEDTIME docusate sodium 100 mg PO DAILY famotidine 40 mg PO BEDTIME finasteride 5 mg PO DAILY 90 days fluoxetine 80 mg PO DAILY ketorolac 10 mg PO Q8H PRN levetiracetam 500 mg PO BID linaclotide (Linzess) 290 mcg PO QAM melatonin 3 mg PO BEDTIME gvcxovlsmonk-ypad-uumgi acid 18-400 mg-mcg (Certavite-Antioxidant) 1 tab PO QAM nitroglycerin 0 mg sublingual ondansetron 4 mg PO Q6H PRN pantoprazole 40 mg PO BID primidone 50 mg PO BEDTIME propranolol 10 mg PO BID terazosin 5 mg PO BEDTIME 90 days topiramate XR 25 mg PO DAILY trazodone mg PO HPI Comments Details: Inderjit is a very pleasant 63-year-old male who presents the office today for evaluation and management of his chronic lower back pain. Patient reports he has been suffering with this pain for greater than 20 years. Over the last 5 or 6 months it has progressively worsened. Now with pain down the left leg to the great toe Endorses numbness, tingling shooting, stabbing pain to the left lower extremity. Denies inciting injury, trauma or fall Pain is worse with sitting, walking and climbing stairs. Improves with relaxing and lying down. History of L4-5 fusion in [address] Uribe Had SCS implant done in 2007 with subsequent removal. Reports it did not help and was too difficult to use. Patient has been taking Tylenol and ibuprofen with minimal improvement He has not attempted physical therapy, home exercise program, acupuncture, chiropractor, massage or recent injections Denies red flag symptoms including new loss of bowel, bladder or saddle anesthesia Patient underwent MRI of lumbar spine last fall, results as per below In terms of muscle damage condition is described as sharp, shooting, cramping, numbness, pins and needles, tingling, aching Pain is negatively impacting patient's enjoyment of life, general activity, walking, sleeping Denies implantable devices, pacemaker or defibrillator Denies current use of alcohol, tobacco, nicotine or illicit substances Denies current use of anticoagulation medications [facility] Medical History (Updated 11/16/23 @ 15:02 by Britney Roy, MANAGER OF HOSPITAL, COLLECTOR OF INTERNAL REVENUE) CAD (coronary artery disease) Surgical History Hx of colonoscopy History of esophagogastroduodenoscopy (EGD) Family History Father Cancer Mother Cancer Social History Alcohol intake: never Patient Tobacco Use Status: Never used Tobacco Advance Directives Date on File: 02/25/21 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 Answers questions appropriately. Fully engaged in examination. Skin: warm, dry, intact HEENT: Normocephalic. Hearing intact. Cardiac: External chest normal in appearance. Respiratory: No cough, audible wheezing or stridor. Abdomen: without gross distension. MS: No obvious swelling or deformities. Able to stand on bilateral tiptoes and bilateral heels.? Able to transition from sit to stand unassisted. Ambulates with bilaterally normal heel strike and toe off SLR positive on the left Minimally tender midline lumbar vertebrae and lumbar paraspinal muscles Facet loading positive bilaterally Nontender over bilateral PSIS Negative footdrop, negative clonus DTRs intact bilaterally Flexion to 80 degrees, extension to 10. Increased pain with extension Neurological: Oriented to person, place, time and situation. Thought process intact. No gait abnormalities appreciated. Psychiatric: Appropriate mood and affect. Good judgment and insight. Results Reviewed Results Reviewed: 03/19/2023 MRI lumbar spine FINDINGS: Prior L4-L5 interbody fusion with solid interbody arthrodesis at this level. Straightening of the normal lumbar lordosis. No significant spondylolisthesis. Vertebral body heights are maintained. There is no suspicious osseous lesion. Raced mild disc desiccation and disc height loss at T11-T12 with Kreis type I Modic endplate changes anteriorly. Increased type I Modic endplate change along the L2 anterior inferior endplate. L5 intraosseous hemangioma, unchanged. Multilevel type II Modic endplate change most pronounced at L4-L5. Multilevel anterior osteophytic spurring is seen. Level by level detail as follows: L1-L2: No spinal canal or neural foraminal stenosis. L2-L3: Shallow annular disc bulge and mild bilateral facet arthrosis. No spinal canal or neural foraminal stenosis. L3-L4: Annular disc bulge and mild bilateral facet arthrosis. No spinal canal or neural foraminal stenosis. L4-L5: Post interbody fusion with interbody arthrodesis and mild to moderate bilateral facet arthrosis. No spinal canal stenosis. Impression upon the traversing left L5 nerve root in the subarticular zone. No neural foraminal stenosis. L5-S1: Annular disc bulge, moderate right and mild left facet arthrosis. No spinal canal stenosis. Moderate right and mild to moderate left neural foraminal stenosis with mild mass effect along the exiting L5 nerve roots. The conus medullaris terminates at the level of L1. The distal spinal cord is normal in appearance. . No epidural fluid collection, hematoma, or mass. No significant abnormalities of the paraspinal musculature. Limited evaluation of the intra-abdominal structures without significant abnormalities. The abdominal aorta is of normal contour and caliber. IMPRESSION: Again seen interbody fusion at L4-L5 and minimal lumbar spondylosis without high-grade spinal canal or neural foraminal stenosis. Stable moderate right and mild to moderate left neural foraminal stenosis with mild mass effect along the exiting L5 nerve roots. Assessment & Plan Assessment & Plan (1) Lumbar facet arthropathy: Code(s): M47.816 - Spondylosis without myelopathy or radiculopathy, lumbar region Category: Medical (2) Lumbar radiculopathy: Code(s): M54.16 - Radiculopathy, lumbar region Category: Medical (3) Cervical post-laminectomy syndrome: Code(s): M96.1 - Postlaminectomy syndrome, not elsewhere classified Category: Medical (4) Post laminectomy syndrome: Code(s): M96.1 - Postlaminectomy syndrome, not elsewhere classified Category: Medical Plan Inderjit is a very pleasant 60-year-old male who presented to the office today for evaluation and management of his chronic lower back pain History, physical exam and provocative testing consistent with lumbar radiculopathy in the setting of post-laminectomy syndrome Order placed for PT eval and treat Methocarbamol 500 mg p.o. t.i.d. as needed Discussed options for treatment including diagnostic interventional testing, epidural steroid injections, peripheral nerve stimulation with Sprint, RFA and more permanent neuromodulation. If no improvement with physical therapy and muscle relaxers will plan for fluoroscopy guided left L5-S1 transforaminal epidural steroid injection with local anesthetic. Patient was advised that it may be difficult to access the intended target in order to perform given previous fusion with intact hardware. Would make best attempt but ultimately would not know until the physician was able to visualize better under fluoroscopy. Previous surgically implanted spinal cord stimulator with subsequent removal eliminates the option for treatment with SCS in the future. If patient does not find relief with physical therapy or epidural steroid injection would consider intrathecal drug delivery device. All questions and concerns have been answered and patient agrees with the plan. Follow up after injections and sooner if needed. Orders: Orders PT Evaluation and Treatment Today M47.816 - Spondylosis without myelopathy or radiculopathy, lumbar region, M54.16 - Radiculopathy, lumbar region, M96.1 - Postlaminectomy syndrome, not elsewhere classified Medications: New methocarbamol No driving while taking this medication. Do no take with alcohol or other VIDEO COORDINATOR Depressants 500 mg PO TID PRN 90 tabs 1RF muscle spasm Coding Level of Care Code New Pt Level 4 (81393) Diagnoses Lumbar facet arthropathy M47.816 Lumbar radiculopathy M54.16 Cervical post-laminectomy syndrome M96.1 Post laminectomy syndrome M96.1
[2023-11-16 10:55] VITALS: BP 122/71; PULSE 77; RESP 14; O2SAT 95; BMI 29.2
== END 2023-11-16 11:31 | disposition home or self-care (01) ==
PROVIDERS: PCP Student in an Organized Health Care Education/Training Program; Referring Provider Student in an Organized Health Care Education/Training Program; Visit Provider Registered Nurse Emergency
DX: M47.816 Spondylosis without myelopathy or radiculopathy, lumbar region (principal); M54.16 Radiculopathy, lumbar region; M96.1 Postlaminectomy syndrome, not elsewhere classified
CPT/HCPCS: 99204

== ENCOUNTER → 2023-11-16 10:46 | Outpatient (BNVA) | payer OTHER, SELFPAY | PROVIDERS: PCP Student in an Organized Health Care Education/Training Program; Referring Provider Student in an Organized Health Care Education/Training Program; Visit Provider Registered Nurse Emergency | DX: M47.26 Other spondylosis with radiculopathy, lumbar region (principal); M96.1 Postlaminectomy syndrome, not elsewhere classified | CPT/HCPCS: 99202 ==

== ENCOUNTER 2023-11-16 11:45 | Outpatient (REF) | payer OTHER, SELFPAY ==
[2023-11-16 12:36] LABS: Hemoglobin 14.5 g/dl (14.0-18.0); Mean Corpuscular HGB Conc 32.2 g/dl (31.0-36.0); Mean Corpuscular Hemoglobin 27.6 pg (27.0-33.0); Mean Corpuscular Volume 85.6 fL (80.0-98.0); Mean Platelet Volume 9.8 fL (9.4-12.4); Platelet Count 184 X10*3/uL (160-400); Red Blood Count 5.26 X10*6/uL (4.60-5.80); Red Cell Distribution Width 13.2 % (11.0-16.0); White Blood Count 3.1 X10*3/uL (4.8-10.8)
[2023-11-16 12:43] LABS: Estimated Average Glucose 120 mg/dL; Hemoglobin A1c % 5.8 % (<6.0)
[2023-11-16 13:12] LABS: Alanine Aminotransferase 33 U/L (0-40); Albumin Level 4.3 g/dL (3.5-5.0); Alkaline Phosphatase 98 U/L (39-117); Anion Gap 12 (12-20); Aspartate Amino Transferase 17 U/L (5-37); Blood Urea Nitrogen 14 mg/dL (9-16); Calcium 9.8 mg/dL (8.4-10.2); Carbon Dioxide 27 mmol/L (22-29); Chloride 108 mmol/L (96-108); Cholesterol 179 mg/dL (<200); Estimated Glomerular Filt Rate > 60; Glucose Random 122 mg/dL (60-115); HDL Cholesterol 38 mg/dL (>40); LDL Cholesterol Calculated 90 mg/dL (<100); Potassium 4.5 mmol/L (3.3-5.1); Sodium 142 mmol/L (135-145); Total Protein 7.2 g/dL (6.5-8.0); Triglycerides 258 mg/dL (<150)
[2023-11-16 13:26] LABS: TSH reflex Free T4 0.76 uIU/mL (0.32-4.0); Vitamin D 25-OH Total 33.9 ng/mL (>30)
[2023-11-16 13:41] LABS: Folate 13.1 ng/mL (> or = 4.0); Vitamin B12 312 pg/mL (200-900)
[2023-11-16 13:51] LABS: HBc Num1 0.07 S/CO (0.00-0.79); HBsAGNum1 0.29 S/CO (0.00-0.99); HIV AB/AG Nonreactive (Nonreactive); HIV Num 1 0.04 S/CO (0.00-0.99); Hepatitis B Core Antibody Nonreactive (Nonreactive); Hepatitis B Surface Antigen Negative (Negative); ~HepC Num1 0.07 S/CO (0.00-0.79); ~Hepatitis B Surface Antibody NONREACTIVE (Nonreactive); ~Hepatitis C Antibody Nonreactive (Nonreactive)
[2023-11-17 05:46] LABS: CT PCR NOT DETECTED (Not Detect.); NG PCR NOT DETECTED (Not Detect.)
== END 2023-11-16 11:46 | disposition home or self-care (01) ==
LOC: HO.LAB 11:45
PROVIDERS: PCP Student in an Organized Health Care Education/Training Program; Visit Provider Student in an Organized Health Care Education/Training Program
DX: Z00.00 Encounter for general adult medical examination without abnormal findings (principal); Z11.4 Encounter for screening for human immunodeficiency virus [HIV]; Z13.6 Encounter for screening for cardiovascular disorders; Z13.1 Encounter for screening for diabetes mellitus; Z20.2 Contact with and (suspected) exposure to infections with a predominantly sexual mode of transmission
CPT/HCPCS: 80053; 80061; 82306; 82607; 82746; 83036; 84443; 85027; 86704; 86706; 86803; 87340; 87389; 87491; 87591

== ENCOUNTER 2023-12-14 17:11 | Emergency (ER) | payer OTHER, SELFPAY ==
--- NOTE | ~2023-12-14 | XR_ITS ---
EXAMINATION: CHEST 2 VIEWS CLINICAL INFORMATION: L chest pain. COMPARISON: No recent pertinent prior studies are available for comparison. TECHNIQUE: PA and lateral views of the chest obtained. FINDINGS: The lungs are well expanded. No focal infiltrate, effusion, edema, or pneumothorax. Cardiac and mediastinal silhouettes are within normal limits for technique. No acute bony abnormality seen XR/XR chest 2V IMPRESSION: No evidence of acute disease
--- NOTE | 2023-12-14 17:13 | ECG_ITS ---
Test Reason : chest pain Blood Pressure : / mmHG Vent. Rate : 062 BPM Atrial Rate : 062 BPM P-R Int : 158 ms QRS Dur : 090 ms QT Int : 406 ms P-R-T Axes : 034 003 032 degrees QTc Int : 412 ms Normal sinus rhythm Normal ECG When compared with ECG of 22-OCT-2023 14:07, No significant change was found Referred By: Generic ED Physician Electronically Signed By:Cirilo Bolivar
--- NOTE | 2023-12-14 17:42 | ED_ITS ---
HPI - Chest Pain General Chief Complaint: Chest Pain Stated Complaint: chest pain, dizzy Time Seen by Provider: 12/14/23 17:59 Source: patient Mode of arrival: ambulatory Limitations: no limitations History of Present Illness ED Provider: Dr. Saida Keller HPI narrative: Patient comes to the emergency room complaining of intermittent chest pain. Patient states that yesterday her chest pain lasting for 5 minutes and then it went away. Today approximately 6 hours ago had another episode of chest pain, lasted for about 10 minutes and then self resolved. Patient states that when he was in the waiting room had another short episode and self-resolved, this time no chest pain. Patient denies any shortness of breath, no lower extremity edema. Related Data Home Medications ?Medication ?Instructions ?Recorded ?Confirmed aspirin 81 mg tablet,delayed 81 mg PO QAM 12/08/20 11/16/23 release atorvastatin 80 mg tablet 80 mg PO BEDTIME 12/08/20 11/16/23 propranolol 10 mg tablet 10 mg PO BID 12/19/20 11/16/23 melatonin 3 mg tablet 3 mg PO BEDTIME 08/16/22 11/16/23 nitroglycerin 0.4 mg sublingual 0 mg sublingual 08/16/22 11/16/23 tablet levetiracetam 500 mg tablet 500 mg PO BID 11/15/22 11/16/23 multivitamin-ferrous 1 tab PO QAM 11/15/22 11/16/23 fumarate-folic acid 18 mg-400 mcg tablet (Certavite-Antioxidant) fluoxetine 40 mg capsule 80 mg PO DAILY 12/20/22 11/16/23 trazodone 50 mg tablet mg PO 08/01/23 11/16/23 docusate sodium 100 mg capsule 100 mg PO DAILY 08/03/23 11/16/23 primidone 50 mg tablet 50 mg PO BEDTIME 08/03/23 11/16/23 topiramate 25 mg capsule,extended 25 mg PO DAILY 08/03/23 11/16/23 release 24 hr Previous Rx's ?Medication ?Instructions ?Recorded famotidine 40 mg tablet 40 mg PO BEDTIME #90 tabs 06/23/23 finasteride 5 mg tablet 5 mg PO DAILY 90 days #90 tabs 06/23/23 pantoprazole 40 mg tablet,delayed 40 mg PO BID #60 tabs 08/02/23 release linaclotide 290 mcg capsule 290 mcg PO QAM #30 caps 08/03/23 (Linzess) ketorolac 10 mg tablet 10 mg PO Q8H PRN pain #10 tabs 08/12/23 ondansetron 4 mg disintegrating 4 mg PO Q6H PRN nausea and 08/12/23 tablet vomiting #14 tabs terazosin 5 mg capsule 5 mg PO BEDTIME 90 days #90 caps 09/29/23 methocarbamol 500 mg tablet 500 mg PO TID PRN muscle spasm #90 11/16/23 tabs Allergies Allergy/AdvReac Type Severity Reaction Status Date / Time No Known Allergies Allergy Verified 12/14/23 17:44 Review of Systems 2 Review of Systems: Constitutional : No Weight loss, No Fever, No Chills, No Night Sweats, No Fatigue, No Malaise ENT/Mouth : No Hearing loss, No Ear Pain, No Nasal Congestion, No Sinus Pain, No Hoarseness, No sore throat, No Rhinorrhea, No Swallowing Difficulty Eyes: No Eye Pain, No Swelling, No Redness, No Foreign Body, No Discharge, No Vision Changes Cardiovascular : Complaining of intermittent Chest Pain, No SOB, No Dyspnea on Exertion, No Orthopnea, No Edema, No Palpitations Respiratory : No Cough, No Sputum, No Wheezing, No Smoke Exposure, No Dyspnea Gastrointestinal : No Nausea, No Vomiting, No Diarrhea, No Constipation, No abdominal Pain, No Hematochezia, No Melena Genitourinary : no irregular bleeding, No Dysuria, No Urinary Frequency, No Hematuria, No Urinary Incontinence, No Urgency, No Flank Pain, No Urinary Flow Changes, No Hesitancy Musculoskeletal : No joint pain, No Myalgias, No Joint Swelling Skin : No Skin Lesions, No rash Neuro : No Weakness, No Numbness, No Paresthesias, No Loss of Consciousness, No Dizziness, No Headache Psych : No Anxiety/Panic, No Depression, No SI/HI/AH/VH, No Social Issues, Heme/Lymph: No Bruising, No Bleeding,No Lymphadenopathy Endocrine : No Polyuria, No Polydipsia, No Temperature Intolerance COUNT INCLUDES THE [facility] Past Medical History Medical History CAD (coronary artery disease) Surgical History Hx of colonoscopy History of esophagogastroduodenoscopy (EGD) Family History Family History Father Cancer Mother Cancer Social History Social History Alcohol intake: never Patient Tobacco Use Status: Never used Tobacco Advance Directives: Yes Advance Directives on File: Yes Advance Directives Date on File: 02/25/21 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 Oriented X3. No acute distress. Eyes: Pupils equal, round and reactive to light. ENT: Pharynx normal. Neck: Normal inspection. Neck supple. No lymph nodes noted. No crepitus CVS: Normal heart rate and rhythm. Pulses normal. Normal S1 and S2 Respiratory: No respiratory distress. Breath sounds normal. No Wheezing. No rales Abdomen: Soft and nontender. No rigidity. No distention. Skin: Skin warm and dry. Normal skin color. Normal skin turgor. Extremities: No lower extremity edema. No Lacerations. No Rash Neuro: Oriented X 3. No motor deficit. No sensory deficit. Moving all extremities. No slurred speech. CN 2 through 12 grossly intact Psych: calm, cooperative, normal affect Course Course Course Narrative: This is a Rapid Medical Examination (RME) performed by Sincere Stanford PA-C in triage. Full HPI, ROS, assessment and treatment plan per primary provider in the Main ED. 63 yo male hx of CAD here for eval of intermittent L sided chest pain, left sided headache, and dizziness x3 days. reports cp has been improving over the last few days. rates it 4/10 at present. no radiation. + well appearing. exam nonfocal. rrr. lungs cta. Plan: labs, ekg, cxr, viral testing Medical Decision Making Medical Decision Making [facility] Narrative: -my interpretation of EKG: Normal sinus rhythm, heart rate 62, no ST segment depression or elevation, no T-wave inversion, QTC 412 -I reviewed patient's medical records, patient had transthoracic echocardiogram on July of 2023. Findings ejection fraction 60%, no evidence of regional wall motion abnormalities. -I reviewed patient's medical records and notes from Cardiology. Patient has been complaining of the same symptoms for at least 7 months if not longer. Patient sees Dr. Mariscal for cardiology. -my interpretation of labs: patient's hematology and chemistry are unremarkable, troponin negative My interpretation of chest x-ray, no obvious abnormality, radiology report no evidence of acute disease -patient has chronic intermittent chest pains. Patient has been seen multiple times by Cardiology for this recurring complaint. At this time, ACS not suspected. 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 12/14/23 17:52 12/14/23 17:52 Labs: Lab Results 12/14/23 Range/Units 17:52 WBC 3.8 L (4.8-10.8) X10*3/uL RBC 4.90 (4.60-5.80) X10*6/uL Hgb 13.8 L (14.0-18.0) g/dl Hct 41.8 L (42.0-52.0) % MCV 85.3 (80.0-98.0) fL MCH 28.2 (27.0-33.0) pg MCHC 33.0 (31.0-36.0) g/dl RDW 13.2 (11.0-16.0) % Plt Count 162 (160-400) X10*3/uL MPV 9.4 (9.4-12.4) fL Immature Gran % (Auto) 0.3 (0.0-0.4) % Neut % (Auto) 41.8 L (45-73) % Lymph % (Auto) 45.7 H (20-40) % [place] % (Auto) 9.8 (2-11) % Eos % (Auto) 2.1 (0-4) % Baso % (Auto) 0.3 (0-2) % Lymph # (Auto) 1.7 (1.2-4.9) X10*3/uL [place] # (Auto) 0.4 (0.1-1.2) X10*3/uL Eos # (Auto) 0.1 (0.0-0.4) X10*3/uL Baso # (Auto) 0.0 (0.0-0.2) X10*3/uL Abs Immat Gran (auto) 0.01 (0.00-0.03) X10*3/uL Absolute Neuts (auto) 1.6 L (2.0-8.3) x10*3/uL Absolute Nucleated RBC 0.000 (0.0-0.012) X10*3/uL Nucleated RBC % (auto) 0.0 (0.0-0.2) /100WBC Sodium 143 (135-145) mmol/L Potassium 4.5 (3.3-5.1) mmol/L Chloride 109 H (96-108) mmol/L Carbon Dioxide 27 (22-29) mmol/L Anion Gap 12 (12-20) BUN 18 H (9-16) mg/dL Creatinine 1.19 (0.5-1.4) mg/dL Estim Creat Clear Calc 70.5 Estimated GFR > 60 Random Glucose 86 (60-115) mg/dL Calcium 9.8 (8.4-10.2) mg/dL Magnesium 2.1 (1.6-2.6) mg/dL Total Bilirubin 0.8 (0.0-1.0) mg/dL AST 17 (5-37) U/L ALT 33 (0-40) U/L Alkaline Phosphatase 81 (39-117) U/L Troponin I High Sens < 2.7 (<3.5-35.0) ng/L Total Protein 7.2 (6.5-8.0) g/dL Albumin 4.3 (3.5-5.0) g/dL Lipase 37 (8-78) U/L Influenza Type A (PCR) NEGATIVE (Negative) Influenza Type B (PCR) NEGATIVE (Negative) RSV RNA Qual (PCR) NEGATIVE (Negative) SARS-CoV-2 RNA (RT-PCR) NEGATIVE (Negative) Independent Interpretation I performed an independent interpretation of an: Plain X-Ray Radiology Impression Discussion of test interpretation with radiology: I have reviewed the radiologist's reading. Radiologist Impression: The lungs are well expanded. No focal infiltrate, effusion, edema, or pneumothorax. Cardiac and mediastinal silhouettes are within normal limits for technique. No acute bony abnormality seen XR/XR chest 2V IMPRESSION: No evidence of acute disease Critical Care Time Critical Care Time Critical Care Time: Yes Total Critical Care Time: 30 Attestation: I have personally provided critical care time. Time includes review of lab data, radiology results, discussion with consultants, and monitoring for potential decompensation. Intervention performed as documented. Discharge Plan Discharge Clinical Impression: Atypical chest pain Patient Disposition: Home, Self-Care Instructions: Chest Pain (ED), Chest Wall Pain (ED) Additional Instructions: Please follow-up with your primary care physician tomorrow. If you have any worsening or new symptoms, please return to the emergency room or call 911 Prescriptions: No Action finasteride 5 mg tablet 5 mg PO DAILY 90 Days Qty: 90 2RF famotidine 40 mg tablet 40 mg PO BEDTIME Qty: 90 3RF pantoprazole 40 mg tablet,delayed release (DR/EC) 40 mg PO BID Qty: 60 3RF terazosin 5 mg capsule 5 mg PO BEDTIME 90 Days Qty: 90 1RF ketorolac 10 mg tablet 10 mg PO Q8H PRN (Reason: pain) Qty: 10 0RF Rx Instructions: Do not use this medication with NSAIDs. ondansetron 4 mg tablet,disintegrating 4 mg PO Q6H PRN (Reason: nausea and vomiting) Qty: 14 0RF atorvastatin 80 mg tablet 80 mg PO BEDTIME aspirin 81 mg tablet,delayed release (DR/EC) 81 mg PO QAM propranolol 10 mg tablet 10 mg PO BID nitroglycerin 0.4 mg tablet, sublingual 0 mg sublingual melatonin 3 mg tablet 3 mg PO BEDTIME levetiracetam 500 mg tablet 500 mg PO BID Certavite-Antioxidant 18-400 mg-mcg tablet 1 tab PO QAM trazodone 50 mg tablet PO primidone 50 mg tablet 50 mg PO BEDTIME docusate sodium 100 mg capsule 100 mg PO DAILY topiramate 25 mg capsule,extended release 24hr 25 mg PO DAILY Linzess 290 mcg capsule 290 mcg PO QAM Qty: 30 4RF fluoxetine 40 mg capsule 80 mg PO DAILY methocarbamol 500 mg tablet 500 mg PO TID PRN (Reason: muscle spasm) Qty: 90 1RF Rx Instructions: No driving while taking this medication. Do no take with alcohol or other BRIM PLATER Depressants Referrals: Sharan Mariscal MD [Physician] - 12/15/23 Print Language: Belgian
[2023-12-14 17:43] VITALS: BP 123/71; PULSE 68; RESP 16; TEMP 36.6; O2SAT 97; BMI 29.4
[2023-12-14 17:56] LABS: MANUAL DIFF FLAG NO
[2023-12-14 17:59] LABS: Basophils Percent Auto 0.3 % (0-2); Eosinophils Absolute Auto 0.1 X10*3/uL (0.0-0.4); Eosinophils Percent Auto 2.1 % (0-4); Hematocrit 41.8 % (42.0-52.0); Hemoglobin 13.8 g/dl (14.0-18.0); Imm Gran Abs Auto 0.01 X10*3/uL (0.00-0.03); Imm Gran Pct Auto 0.3 % (0.0-0.4); Lymphocytes Absolute Auto 1.7 X10*3/uL (1.2-4.9); Lymphocytes Percent Auto 45.7 % (20-40); Mean Corpuscular Hemoglobin 28.2 pg (27.0-33.0); Mean Corpuscular Volume 85.3 fL (80.0-98.0); Mean Platelet Volume 9.4 fL (9.4-12.4); Monocytes Absolute Auto 0.4 X10*3/uL (0.1-1.2); Monocytes Percent Auto 9.8 % (2-11); Neutrophils Absolute Auto 1.6 x10*3/uL (2.0-8.3); Neutrophils Percent Auto 41.8 % (45-73); Platelet Count 162 X10*3/uL (160-400); Red Cell Distribution Width 13.2 % (11.0-16.0); White Blood Count 3.8 X10*3/uL (4.8-10.8)
[2023-12-14 18:02] VITALS: BP 125/71; PULSE 55; RESP 21; TEMP 36.6; O2SAT 94
[2023-12-14 18:14] LABS: Alanine Aminotransferase 33 U/L (0-40); Albumin Level 4.3 g/dL (3.5-5.0); Alkaline Phosphatase 81 U/L (39-117); Anion Gap 12 (12-20); Aspartate Amino Transferase 17 U/L (5-37); Bilirubin Total 0.8 mg/dL (0.0-1.0); Blood Urea Nitrogen 18 mg/dL (9-16); Calcium 9.8 mg/dL (8.4-10.2); Carbon Dioxide 27 mmol/L (22-29); Chloride 109 mmol/L (96-108); Creatinine Clr Calc Pharmacy 70.5; Estimated Glomerular Filt Rate > 60; Glucose Random 86 mg/dL (60-115); Lipase 37 U/L (8-78); Magnesium 2.1 mg/dL (1.6-2.6); Potassium 4.5 mmol/L (3.3-5.1); Sodium 143 mmol/L (135-145); Total Protein 7.2 g/dL (6.5-8.0)
[2023-12-14 18:22] LABS: Troponin-I High Sensitivity < 2.7 ng/L (<3.5-35.0)
[2023-12-14 18:38] LABS: Influenza A PCR NEGATIVE (Negative); Influenza B PCR NEGATIVE (Negative); Resp Syncy Virus RNA Qual PCR NEGATIVE (Negative); SARS COV2 PCR INHOUSE NEGATIVE (Negative)
[2023-12-14 20:32] VITALS: BP 134/84; PULSE 54; RESP 19; TEMP 36.6; O2SAT 96
[2023-12-14 20:57] VITALS: BP 140/80; PULSE 55; RESP 18; TEMP 36.7; O2SAT 96
== END 2023-12-14 20:59 | disposition home or self-care (01) ==
PROVIDERS: Physician Assistant Medical; Emergency Provider Emergency Medicine; PCP Student in an Organized Health Care Education/Training Program
DX: R07.89 Other chest pain (principal); R42 Dizziness and giddiness; I25.10 Atherosclerotic heart disease of native coronary artery without angina pectoris; Z79.899 Other long term (current) drug therapy; Z03.818 Encounter for observation for suspected exposure to other biological agents ruled out
CPT/HCPCS: 0241U; 71046; 80053; 83690; 83735; 84484; 85025; 93005; 99283; 99284

== ENCOUNTER → 2023-12-14 17:13 | Outpatient (BNV) | payer OTHER, SELFPAY | PROVIDERS: Emergency Provider Emergency Medicine; PCP Student in an Organized Health Care Education/Training Program; Visit Provider Internal Medicine Cardiovascular Disease | DX: R07.9 Chest pain, unspecified (principal) | CPT/HCPCS: 93010 ==

== ENCOUNTER 2024-01-17 14:00 | Outpatient (RCR) | payer OTHER, SELFPAY ==
--- NOTE | 2023-12-27 10:31 | MHC.PT.EP ---
[facility] Office [place] Office [place] Office [address] [phone] F: [phone] F: [phone] F: [phone] F: [phone] Physical Therapy Plan of Care Date of Evaluation: 12/27/23 Date of Surgery: 2005 Diagnosis: B BACK PAIN Assessment: Pt IS 63 YO M REFERRED TO PT FROM [facility] WITH BACK PAIN. Pt HAD BACK SURGERY IN 2006 (LAMINECTOMY/FUSION) AND HAS HAD TRIAL OF STIMULATOR (DID NOT HELP, SO REMOVED). PRESENTS TO PT WITH DECREASED LE FLEXIBILTY, DECREASED CORE/HIP STRENGTH, TIGHT LUMBAR PARASPINALS. SHOULD BENEFIT FROM PT TO ADDRESS THESE ISSUES. OF NOTE, ?SWELLING THORACIC PARASPINALS (NEAR SCAR WHERE STIMULATOR WAS) Frequency and Duration: The patient will be seen 2X/WK X 6 WKS Short Term Goals: 1. INCREASED POSTURE AWARENESS AND AWARENESS OF BACK CARE 2. LESS L LE SXS (CENTRALIZE SXS) 3. Pt TO PERF 2-3 TASKS WITH PROPER BODY MECH Snf Goals: 1. I HEP WITH DC EX PLAN 2. INCREASED HS FLEX 5-10 DEGREES 3. DECREASED BACK PAIN AT LEAST 50% WITH ADLS Treatment Plan: Modalities to reduce pain, spasms and effusion. Manual therapy to restore motion and function. Therapeutic exercise to improve strength and flexibility. Neuromuscular re-education for posture and balance. Therapeutic activities to return to functional activities of daily living. Electronically signed by: ANTONIO FLORES PT Please sign and return to therapist. Thank you for your referral.
--- NOTE | 2024-02-14 11:45 | MHC.PT.DC ---
[facility] [place] Office [place] Office [place] Office [address] Julia Fuentes [address] [phone] F: [phone] F: [phone] F: [phone] F: [phone] Physical Therapy Discharge Report Diagnosis: B BACK PAIN Date of Surgery: 2005 Date of Evaluation: 12/27/23 Date of Discharge: 02/14/24 Treatments to Date: 4 Cancellations to Date: No Shows to Date: Discharge Status: Patient Elected to Stop Discharge Summary: Pt SEEN FOR INIT EVAL AND 3 VISITS. AT LAST SESSION ON 01/17/24 Pt REPORTS CONTINUED NUMBNESS IN LE (SOMEWHAT RELIEVED WITH EXTENSION). Pt THEN NO SHOWED HIS LAST SCHEDULED APPT Electronically signed by: ANTONIO FLORES PT Please sign and return to therapist. Thank you for your referral.
== END 2024-02-14 11:45 | disposition home or self-care (01) ==
LOC: HO.PT 14:00
PROVIDERS: PCP Student in an Organized Health Care Education/Training Program; Visit Provider Registered Nurse Emergency
DX: M54.50 Low back pain, unspecified (principal)
CPT/HCPCS: 97110; 97140; 97161

== ENCOUNTER 2024-01-31 15:28 | Outpatient (REF) | payer OTHER, SELFPAY ==
[2024-01-31 17:10] LABS: Prostate Specific Antigen 2.55 ng/mL (<0.05-4.0)
== END 2024-01-31 15:29 | disposition home or self-care (01) ==
LOC: HO.LAB 15:28
PROVIDERS: PCP Student in an Organized Health Care Education/Training Program; Visit Provider Nurse Practitioner Family
DX: R35.1 Nocturia (principal); N39.43 Post-void dribbling; N40.0 Benign prostatic hyperplasia without lower urinary tract symptoms; Z12.5 Encounter for screening for malignant neoplasm of prostate
CPT/HCPCS: 36415; 84153

== ENCOUNTER 2024-02-01 09:15 | Outpatient (AMB) | payer OTHER, SELFPAY ==
--- NOTE | 2024-02-01 09:42 | A.OFFVIS_ITS ---
Intake Visit Reasons: 6m/PSA/PVR Intake Note: Patient presents for follow up for BPH/labs PSA: 2.55 Urology Medications:finasteride, terazosin Blood Thinner: none PVR: 20ml's Records Management Analyst Required: Yes Records Management Analyst Services: Records Management Analyst Present Records Management Analyst Name: [id number] Accompanied by: Self / Same As Patient Allergies No Known Allergies Allergy (Verified 02/01/24 12:06) Medication List - Last Reconciled 02/01/24 by ANISH Jain- aspirin 81 mg PO QAM atorvastatin 80 mg PO BEDTIME docusate sodium 100 mg PO DAILY famotidine 40 mg PO BEDTIME finasteride 5 mg PO DAILY 90 days fluoxetine 80 mg PO DAILY ketorolac 10 mg PO Q8H PRN levetiracetam 500 mg PO BID linaclotide (Linzess) 290 mcg PO QAM melatonin 3 mg PO BEDTIME methocarbamol 500 mg PO TID PRN byvxsijxbwam-qvxo-xfqbg acid 18-400 mg-mcg (Certavite-Antioxidant) 1 tab PO QAM nitroglycerin 0 mg sublingual ondansetron 4 mg PO Q6H PRN pantoprazole 40 mg PO BID primidone 50 mg PO BEDTIME propranolol 10 mg PO BID terazosin 5 mg PO BEDTIME 90 days topiramate XR 25 mg PO DAILY trazodone mg PO HPI Comments Details: Inderjit is a pleasant 63-year-old / Estonian speaking male patient of Dr. Christiansen. He has a PMH of CAD. He presents to the office today for follow-up of his lower urinary tract symptoms. In discussion with the patient today reports to be doing and feeling well. He reports compliance with 5 mg of finasteride and terazosin daily. He reports noting significant improvement in episodes of nocturia however he does continue with urinary dribbling. He otherwise denies urinary urgency, urinary frequency, incontinence, hematuria, dysuria, foul smelling urine, changes to urinary stream, flank pain, fever, and or chills. Previous workup has included a retroperitoneal ultrasound noting mild diffuse bladder wall thickening. No stone or masses seen. Bilateral ureteral jets are demonstrated. Pre void bladder volume is approximately 210 mL. Postvoid bladder volume is 2 mL. The kidneys are normal with no calculi hydronephrosis or lesions noted. He had previously tried Flomax with no improvement however he does report improvement in urinary urgency, urinary frequency, and nocturia with 5 mg of terazosin daily. In office urinalysis results reviewed with the patient today. PVR 20 mL. Recent PSA results reviewed with the patient and trended below. When asked he otherwise denies any other urinary issues or concerns at this time. PSAs are as follows: 09/05 2.5, 02/05 2.3, 07/09 2.0, 01/06 2.6 We discussed slight increase in PSA and potential causes for slight bump in PSA. He is requesting assessment of groin area as he feels there is a palpable area in his unsure if this is concerning. However, in assessment and palpation of patient's area I was unable to palpate question of concerning area. Discussed obtaining ultrasound for further assessment evaluation. He otherwise offers no other issues or concerns at this time. [facility] Medical History CAD (coronary artery disease) Surgical History Hx of colonoscopy History of esophagogastroduodenoscopy (EGD) Family History Father Cancer Mother Cancer Social History Alcohol intake: never Patient Tobacco Use Status: Never used Tobacco Advance Directives Date on File: 02/25/21 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 Review of Systems Const Reports as per HPI Eyes Reports no additional complaints ENT Reports no additional complaints Card Reports as per HPI Resp Reports no additional complaints GI Reports no additional complaints Reports as per HPI Musc Reports no additional complaints Neuro Reports no additional complaints Psych Reports no additional complaints Endo Reports no additional complaints Cornell/Lymph Reports no additional complaints Aller/Immun Reports no additional complaints Physical Exam Const General: cooperative, healthy appearing, comfortable, no acute distress, well developed, alert and awake Orientation/consciousness: patient oriented x3 Limitations: no limitations HEENT Head: Yes normal to inspection, Yes normocephalic and Yes atraumatic Ears: hearing grossly normal bilaterally Eyes General: appearance normal, both eyes and all related structures Neck Neck: Yes normal visual inspection and Yes trachea midline Chest Chest palpation & inspection: normal inspection of the chest Resp Effort & Inspection: normal respiratory effort and able to speak in complete sentences Cardio Rate: regular rate GI Inspection: Yes normal to inspection Rectal Exam - Male: Yes visual inspection normal, Yes normal sphincter tone and Yes prostate normal General: Yes no CVA tenderness Back/Spine/Pelvis Back: no CVA tenderness Skin General skin exam: no rashes or lesions noted Neuro General: patient oriented x3 Extrem General: Yes normal to inspection Psych Appearance: grossly normal and well kempt Mental Status: mental status grossly normal Speech and movement: Normal speech and movement present and Clear speech present Affect: normal affect Attitude: cooperative Thought process: Normal thought process present Thought content: Normal thought content present Insight: Fair insight present (Psych) Judgement: Fair judgement present (Psych) Office Procedures Post Void Residual Post Residual Void Post Void Residual (PVR): 20 [id number] Void Residual by ultrasound Results AMB Urinalysis, Automated UA Leukoctes 0 Wade/uL Last Edit by More Gutierrez on 02/01/24 10:14 UA Nitrite Last Edit by More Gutierrez on 02/01/24 10:14 UA Urobilinogen 0.2 mg/dL Last Edit by [employer] Brenda on 02/01/24 10:14 UA Protein 0 mg/dL Last Edit by [employer] Gutierrez on 02/01/24 10:14 UA pH 7.0 Last Edit by [employer] on 02/01/24 10:14 UA Blood 0 Christian/uL Last Edit by [employer] Brenda on 02/01/24 10:14 UA Specific [place] 1.015 Last Edit by [employer] Gutierrez on 02/01/24 10:14 UA Ketone Last Edit by [employer] Gutierrez on 02/01/24 10:14 UA Bilirubin 0 mg/dL Last Edit by [employer] Gutierrez on 02/01/24 10:14 UA Glucose 0 mg/dL Last Edit by More Gutierrez on 02/01/24 10:14 Results Reviewed Results Reviewed: Laboratory Last Values Urine pH (Auto) 7.0 02/01/24 10:13 Specific [place] (Auto) 1.015 02/01/24 10:13 Urine Protein (Auto) 0 mg/dL 02/01/24 10:13 Glucose (UA)(Auto) 0 mg/dL 02/01/24 10:13 Urine Blood (Auto) 0 Christian/uL 02/01/24 10:13 Urine Bilirubin (Auto) 0 mg/dL 02/01/24 10:13 Urine Urobilinogen (Auto) 0.2 mg/dL 02/01/24 10:13 Leukocyte Esterase (Auto) 0 Wade/uL 02/01/24 10:13 Assessment & Plan Assessment & Plan (1) Groin fullness: Code(s): R19.00 - Intra-abdominal and pelvic swelling, mass and lump, unspecified site Category: Medical (2) Nocturia: Code(s): R35.1 - Nocturia Category: Medical (3) Bladder wall thickening: Code(s): N32.89 - Other specified disorders of bladder Category: Medical (4) Urinary dribbling: Code(s): N39.43 - Post-void dribbling Category: Medical (5) BPH (benign prostatic hyperplasia): Code(s): N40.0 - Benign prostatic hyperplasia without lower urinary tract symptoms Category: Medical Plan In office urinalysis results reviewed with the patient today; as noted above. PVR 20 mL. Recent PSA results reviewed with the patient today; as noted above; discussed slight increase in potential causes Discussed at length importance of pelvic floor therapy exercises; information provided. Continue finasteride and terazosin as discussed and prescribed. Will obtain redraw of PSA with no sex the night before no caffeine morning of and no heavy lifting 1-2 days prior. Will obtain imaging of the groins for further assessment evaluation no abnormalities noted upon assessment of the area today. Follow-up in 1-3 months with imaging and labs; or sooner with any issues, concerns, and or questions. Orders: Orders AMB Urinalysis Automated Today Z13.9 - Encounter for screening, unspecified AMB Post Void Residual by ultrasound Today R35.1 - Nocturia US extremity nonvascular Today R19.00 - Intra-abdominal and pelvic swelling, mass and lump, unspecified site Prostate Specific Antigen Today N40.0 - Benign prostatic hyperplasia without lower urinary tract symptoms Patient Instructions: The patient had an opportunity to ask questions regarding the treatment plan. All questions were answered. Physical exam, labs, and imaging were discussed and reviewed in detail. As well as risks, benefits, and discussion of treatment choices. No major barriers to understanding were identified. The patient expre ssed understanding and agreement with the above treatment plan. The patient was made aware they should contact our office by phone for worsening of their current condition, the appearance of new symptoms, or with any questions or concerns. Compliance is encouraged with any medications and follow up testing that is ordered. It is a privilege to be allowed the opportunity to participate in? your urological care.? Again, if you have any questions or concerns If you have any questions or concerns please do not hesitate to contact me. The office is [phone]. This note is constructed using voice recognition software. While every effort has been made to ensure accuracy golf coach errors may have been included. Yours sincerely, NIKKY Jain Coding Level of Care Code Est Pt Level 3 (09832) Complex EM visit Add On G2211 Diagnoses Groin fullness R19.00 Nocturia R35.1 Bladder wall thickening N32.89 Urinary dribbling N39.43 BPH (benign prostatic hyperplasia) N40.0 CPT Codes Post Residual Void - PVR CPT Code: 89869-Kdpo Void Residual by ultrasound ([id number])
== END 2024-02-01 10:08 | disposition home or self-care (01) ==
PROVIDERS: PCP Registered Nurse; Visit Provider Nurse Practitioner Family
DX: R19.00 Intra-abdominal and pelvic swelling, mass and lump, unspecified site (principal); R35.1 Nocturia; N32.89 Other specified disorders of bladder; N39.43 Post-void dribbling; N40.0 Benign prostatic hyperplasia without lower urinary tract symptoms; Z13.9 Encounter for screening, unspecified
CPT/HCPCS: 99213; G2211

== ENCOUNTER → 2024-02-01 09:15 | Outpatient (BNVA) | payer OTHER, SELFPAY | PROVIDERS: PCP Registered Nurse; Visit Provider Nurse Practitioner Family | DX: R35.1 Nocturia (principal); N39.43 Post-void dribbling; R19.00 Intra-abdominal and pelvic swelling, mass and lump, unspecified site; N32.89 Other specified disorders of bladder; N40.0 Benign prostatic hyperplasia without lower urinary tract symptoms | CPT/HCPCS: 51798; 81003; 99212 ==

== ENCOUNTER 2024-02-14 13:59 | Outpatient (REF) | payer OTHER, SELFPAY ==
--- NOTE | ~2024-02-14 | CT_ITS ---
EXAMINATION: CT HEAD WITHOUT CONTRAST CLINICAL INFORMATION: h/o tia with worsening unilateral weakness and dizziness COMPARISON: CT head May 2023 TECHNIQUE: Contiguous axial imaging was performed from the skull base to vertex without intravenous administration of contrast. Coronal and sagittal reformatted images are performed at the CT scanner. This CT examination was performed using dose optimization techniques as appropriate, variously including the following: *Automated exposure control *Adjustment of mA and/or kV according to patient size (this includes techniques or standardized protocols for targeted exams where dose is matched to indication/reason for exam; i.e. extremities or head) *Use of iterative reconstruction technique DLP: 752 mGy-cm. FINDINGS: There is no evidence of acute intracranial hemorrhage or territorial infarction. No abnormal mass-effect or midline shift is seen. Salas to white matter differentiation is well preserved. No extra-axial fluid collections are identified. There is generalized global volume loss. There is mild prominence of the ventricles and the sulci . There is mild hypodensity of the periventricular white matter due to chronic small vessel ischemic disease. There are vascular calcifications of the internal carotid arteries bilaterally. There is no osseous abnormality. The mastoid air cells and visualized portions of the paranasal sinuses are well-aerated. CT/CT head/brain wo IV con IMPRESSION: No acute intracranial pathology. Electronically signed by: Saulo Arboleda MD 02/14/2024 05:22 PM EDT
== END 2024-02-14 14:00 | disposition home or self-care (01) ==
LOC: HO.CT 13:59
PROVIDERS: PCP Student in an Organized Health Care Education/Training Program; Visit Provider Registered Nurse
DX: R42 Dizziness and giddiness (principal)
CPT/HCPCS: 70450

== ENCOUNTER 2024-03-10 16:01 | Outpatient (REF) | payer OTHER, SELFPAY ==
--- NOTE | ~2024-03-10 | MR_ITS ---
EXAMINATION: MR FEMUR WITHOUT AND WITH CONTRAST, LEFT CLINICAL INFORMATION: Posterior left thigh mass. Pain. COMPARISON: None available. TECHNIQUE: Multisequence MR imaging of the left femur was obtained before and after the IV administration of 8.5 mL Gadavist contrast on a high-field strength scanner. FINDINGS: BONE: No marrow edema. No stress reaction, fracture, or avascular necrosis. No concerning lytic or blastic osseous lesion. No postcontrast marrow enhancement. MUSCLES/TENDONS: The visualized muscles and tendons are intact. No edema or enhancement to suggest acute injury. SOFT TISSUES: Within the posterior subcutaneous tissues of the thigh interposed between the overlying skin marker, there is an encapsulated fat signal focus measuring approximately 1.3 x 2.6 x 1.5 cm, consistent with a lipoma. No soft tissue component, edema, or enhancement to suggest a more aggressive lesion. No additional soft tissue mass or fluid collection. MR/MR femur LT wo/w con IMPRESSION: 1. Lipoma within the posterior subcutaneous tissues of the left thigh measuring up to 2.6 cm. No soft tissue component, edema, or enhancement to suggest a more aggressive lesion. 2. Otherwise unremarkable examination. Electronically signed by: Chava Sandhu MD 03/28/2024 11:15 AM [facility] [place]
[2024-03-10] MEDS: gadobutroL 10 ML VIAL IVPUSH (17:33)
== END 2024-03-10 16:02 | disposition home or self-care (01) ==
LOC: HO.MRI 16:01
PROVIDERS: PCP Student in an Organized Health Care Education/Training Program; Visit Provider Student in an Organized Health Care Education/Training Program
DX: R22.42 Localized swelling, mass and lump, left lower limb (principal)
CPT/HCPCS: 73720; A9585

== ENCOUNTER 2024-03-12 12:45 | Outpatient (REF) | payer OTHER, SELFPAY ==
--- NOTE | ~2024-03-12 | US_ITS ---
EXAMINATION: US EXTRACRANIAL CAROTID DUPLEX, BILATERAL CLINICAL INFORMATION: calcidication of carotid arteries in CT scan of had, ,dizziness COMPARISON: Carotid Doppler ultrasound dated 03/14/2019 TECHNIQUE: Real-time ultrasound and Doppler techniques (integrating B-mode 2-D vascular images, Doppler spectral analysis and color-flow Doppler imaging) were utilized to interrogate the extracranial carotid arteries, the vertebral arteries and proximal subclavian arteries bilaterally. The degree of stenosis is determined by criteria similar to NASCET. FINDINGS: Right Side: 1. There is mild atherosclerotic plaque seen in the bifurcation/proximal ICA region. 2. The common carotid artery PSV proximally is 86 cm/s and distally 56 cm/s. 3. The proximal internal carotid artery velocities are 53 cm/s systolic and 18 cm/s diastolic. 4. The proximal external carotid artery PSV is 93 cm/s. 5. The vertebral artery shows antegrade flow. 6. The subclavian artery waveforms are normal. Left Side: 1. There is mild atherosclerotic plaque seen in the bifurcation/proximal ICA region. 2. The common carotid artery PSV proximally is 88 cm/s and distally 68 cm/s. 3. The proximal internal carotid artery velocities are 53 cm/s systolic and 19 cm/s diastolic. 4. The proximal external carotid artery PSV is 74 cm/s. 5. The vertebral artery shows antegrade flow. 6. The subclavian artery waveforms are normal. US/US carotid duplex BI IMPRESSION: 1. RIGHT: Minimal, non-hemodynamically significant stenosis of the proximal right internal carotid artery corresponding to a 0-49% stenosis by velocity criteria. 2. LEFT: Minimal, non-hemodynamically significant stenosis of the proximal left internal carotid artery corresponding to a 0-49% stenosis by velocity criteria. 3. There is no change in the category severity of disease when compared to the previous study dated 03/14/2019. Electronically signed by: Kaitlin Alfaro MD 03/21/2024 01:54 PM [facility] [place]
--- NOTE | ~2024-03-12 | US_ITS ---
EXAMINATION: US PELVIS, LIMITED CLINICAL INFORMATION: Swelling, mass. Evaluate for hernia. COMPARISON: CT abdomen/pelvis dated 08/12/2023. TECHNIQUE: Grayscale, Doppler, and cine images were obtained in the region of the patient's palpable findings. FINDINGS: In the region of the patient's palpable findings there is a slightly hyperechoic, lobulated focus measuring 1.3 x 0.7 x 1.0 cm. No Doppler detectable vascular flow. Findings could represent a subcutaneous lipoma. No additional soft tissue mass or fluid collection. Unremarkable bilateral inguinal lymph nodes. No significant inguinal hernia. US/US pelvic limited IMPRESSION: 1. In the region of the patient's palpable findings there is a slightly hyperechoic, lobulated focus measuring 1.3 cm in the region of the patient's palpable findings. Findings could represent a subcutaneous lipoma. 2. Otherwise, unremarkable examination. Electronically signed by: Chava Sandhu MD 03/28/2024 11:19 AM [facility]
== END 2024-03-12 12:46 | disposition home or self-care (01) ==
LOC: HO.US 12:45
PROVIDERS: PCP Student in an Organized Health Care Education/Training Program; Referring Provider Nurse Practitioner Family; Visit Provider Registered Nurse
DX: R42 Dizziness and giddiness (principal); G45.9 Transient cerebral ischemic attack, unspecified; R19.00 Intra-abdominal and pelvic swelling, mass and lump, unspecified site
CPT/HCPCS: 76857; 93880

== ENCOUNTER 2024-03-19 10:44 | Outpatient (REF) | payer OTHER, SELFPAY ==
[2024-03-19 12:23] LABS: Hematocrit 44.3 % (42.0-52.0); Hemoglobin 14.6 g/dl (14.0-18.0); Mean Corpuscular Hemoglobin 27.6 pg (27.0-33.0); Mean Corpuscular Volume 83.7 fL (80.0-98.0); Platelet Count 174 X10*3/uL (160-400); Red Blood Count 5.29 X10*6/uL (4.60-5.80); Red Cell Distribution Width 13.3 % (11.0-16.0); White Blood Count 3.8 X10*3/uL (4.8-10.8)
[2024-03-19 13:17] LABS: Alanine Aminotransferase 61 U/L (0-40); Albumin Level 4.2 g/dL (3.5-5.0); Alkaline Phosphatase 94 U/L (39-117); Anion Gap 12 (12-20); Aspartate Amino Transferase 23 U/L (5-37); Bilirubin Total 0.7 mg/dL (0.0-1.0); Blood Urea Nitrogen 12 mg/dL (9-16); C Reactive Protein < 0.04 mg/dL (< or = 0.50); Calcium 9.2 mg/dL (8.4-10.2); Carbon Dioxide 21 mmol/L (22-29); Chloride 110 mmol/L (96-108); Cholesterol 143 mg/dL (<200); Estimated Glomerular Filt Rate > 60; Glucose Random 101 mg/dL (60-115); HDL Cholesterol 40 mg/dL (>40); Iron 65 mcg/dL (45-160); LDL Cholesterol Calculated 76 mg/dL (<100); Percent Iron Saturation 23 % (15-50); Potassium 3.9 mmol/L (3.3-5.1); Sodium 139 mmol/L (135-145); Total Iron Binding Capacity 283 mcg/dL (228-428); Total Protein 7.1 g/dL (6.5-8.0); Triglycerides 137 mg/dL (<150); Unsaturated Iron Binding 218 ug/dL
[2024-03-19 13:33] LABS: Ferritin 145 ng/mL (20-250); TSH reflex Free T4 2.23 uIU/mL (0.32-4.0)
[2024-03-21 10:04] LABS: Prot Elec - Albumin 4.1 g/dL (3.8-4.8); Prot Elec - Alpha1 0.2 g/dL (0.2-0.3); Prot Elec - Alpha2 0.6 g/dL (0.5-0.9); Prot Elec - Beta 1 0.5 g/dL (0.4-0.6); Prot Elec - Beta 2 0.6 g/dL (0.2-0.5); Prot Elec - Gamma 0.7 g/dL (0.8-1.7); Prot Elec - Total Protein 6.7 g/dL (6.1-8.1)
[2024-03-21 22:07] LABS: IgA 330 mg/dL (70-320); IgG 995 mg/dL (600-1540); IgM 53 mg/dL (50-300)
== END 2024-03-19 10:45 | disposition home or self-care (01) ==
LOC: HO.LAB 10:44
PROVIDERS: Nurse Practitioner Family; PCP Student in an Organized Health Care Education/Training Program; Visit Provider Nurse Practitioner Family
DX: N40.0 Benign prostatic hyperplasia without lower urinary tract symptoms (principal); K58.9 Irritable bowel syndrome, unspecified; R42 Dizziness and giddiness; E78.2 Mixed hyperlipidemia; Z12.5 Encounter for screening for malignant neoplasm of prostate
CPT/HCPCS: 36415; 80053; 80061; 82728; 82784; 83540; 84153; 84165; 84443; 85027; 86140; 86334

== ENCOUNTER 2024-03-20 10:43 | Outpatient (AMB) | payer OTHER, SELFPAY ==
--- NOTE | 2024-03-20 10:45 | MHC.OFFVIS ---
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: [id number] Allergies No Known Allergies Allergy (Verified 03/20/24 11:08) Medication List - Last Reconciled 03/20/24 by NICK JainP- aspirin 81 mg PO QAM atorvastatin 80 mg PO BEDTIME docusate sodium 100 mg PO DAILY famotidine 40 mg PO BEDTIME finasteride 5 mg PO DAILY 90 days fluoxetine 80 mg PO DAILY ketorolac 10 mg PO Q8H PRN levetiracetam 500 mg PO BID linaclotide (Linzess) 290 mcg PO QAM melatonin 3 mg PO BEDTIME methocarbamol 500 mg PO TID PRN ivnnjnougyau-uyyx-glnhx acid 18-400 mg-mcg (Certavite-Antioxidant) 1 tab PO QAM nitroglycerin 0 mg sublingual ondansetron 4 mg PO Q6H PRN pantoprazole 40 mg PO BID primidone 50 mg PO BEDTIME propranolol 10 mg PO BID terazosin 5 mg PO BEDTIME 90 days topiramate XR 25 mg PO DAILY trazodone mg PO HPI Comments Details: Inderjit is a pleasant 63-year-old / Somali speaking male patient of Dr. Christiansen. He has a PMH of CAD. He presents to the office today for follow-up of his lower urinary tract symptoms. Of note, patient was seen approximately 2 months ago at which time bilateral groin ultrasound was ordered as patient had been reporting palpable area. These results reviewed with the patient today. Bilateral groins with no hernia seen. There was a left-sided 1.3 x 0.7 x 1.0 keliod verses lipoma reported. We discussed further treatment options to include surveillance monitoring verses general surgery referral for further assessment evaluation. He reports compliance with 5 mg of finasteride and terazosin as prescribed. He reports significant improvement in episodes of nocturia however continues with urinary dribbling. He otherwise denies urinary urgency, urinary frequency, incontinence, hematuria, dysuria, foul smelling urine, changes to urinary stream, flank pain, fever, and or chills. Previous workup has included a retroperitoneal ultrasound 10/05 noting mild diffuse bladder wall thickening. No stone or masses seen. Bilateral ureteral jets are demonstrated. Pre void bladder volume is approximately 210 mL. Postvoid bladder volume is 2 mL. The kidneys are normal with no calculi hydronephrosis or lesions noted. He had previously tried Flomax with no improvement. Unable to obtain urine for urinalysis today however PVR 0 mL. Recent PSA results reviewed with the patient and trended below. When asked he otherwise denies any other urinary issues or concerns at this time. PSAs are as follows: 09/05 2.5, 02/05 2.3, 07/09 2.0, 01/06 2.6, 04/08 2.3 He otherwise offers no other issues or concerns at this time. [facility] Medical History CAD (coronary artery disease) Surgical History Hx of colonoscopy History of esophagogastroduodenoscopy (EGD) Family History Father Cancer Mother Cancer Social History Alcohol intake: never Patient Tobacco Use Status: Never used Tobacco Advance Directives Date on File: 02/25/21 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 Review of Systems Const Reports as per HPI Eyes Reports no additional complaints ENT Reports no additional complaints Card Reports as per HPI Resp Reports no additional complaints GI Reports no additional complaints Reports as per HPI Musc Reports no additional complaints Neuro Reports no additional complaints Psych Reports no additional complaints Endo Reports no additional complaints Cornell/Lymph Reports no additional complaints Aller/Immun Reports no additional complaints Physical Exam Const General: cooperative, healthy appearing, comfortable, no acute distress, well developed, alert and awake Orientation/consciousness: patient oriented x3 Limitations: no limitations HEENT Head: Yes normal to inspection, Yes normocephalic and Yes atraumatic Ears: hearing grossly normal bilaterally Eyes General: appearance normal, both eyes and all related structures Neck Neck: Yes normal visual inspection and Yes trachea midline Chest Chest palpation & inspection: normal inspection of the chest Resp Effort & Inspection: normal respiratory effort and able to speak in complete sentences Cardio Rate: regular rate GI Inspection: Yes normal to inspection Rectal Exam - Male: Yes visual inspection normal, Yes normal sphincter tone and Yes prostate normal General: Yes no CVA tenderness Back/Spine/Pelvis Back: no CVA tenderness Skin General skin exam: no rashes or lesions noted Neuro General: patient oriented x3 Extrem General: Yes normal to inspection Psych Appearance: grossly normal and well kempt Mental Status: mental status grossly normal Speech and movement: Normal speech and movement present and Clear speech present Affect: normal affect Attitude: cooperative Thought process: Normal thought process present Thought content: Normal thought content present Insight: Fair insight present (Psych) Judgement: Fair judgement present (Psych) Office Procedures Post Void Residual Post Residual Void Post Void Residual (PVR): 0 41243-Tzel Void Residual by ultrasound Assessment & Plan Assessment & Plan (1) Lipoma: Code(s): D17.9 - Benign lipomatous neoplasm, unspecified Category: Medical (2) Groin fullness: Code(s): R19.00 - Intra-abdominal and pelvic swelling, mass and lump, unspecified site Category: Medical (3) Urinary dribbling: Code(s): N39.43 - Post-void dribbling Category: Medical (4) BPH (benign prostatic hyperplasia): Code(s): N40.0 - Benign prostatic hyperplasia without lower urinary tract symptoms Category: Medical Plan Unable to obtain urine for urinalysis however PVR 0 mL. Recent bilateral groin ultrasound results reviewed with the patient today; as noted above. Will refer to General surgery for further assessment evaluation. Patient reports be happy with current voiding parameters. Continue terazosin and finasteride as prescribed. Recent PSA results reviewed with the patient today; as noted above. Discussed importance of pelvic floor exercises to assist with urinary dribbling. He currently denies any bothersome urinary issues. Will obtain PSA in 6 months. Follow-up in 6 months with lab to be completed prior; or sooner with any issues, concerns, and or questions. Orders: Orders Prostate Specific Antigen 6 Months N40.0 - Benign prostatic hyperplasia without lower urinary tract symptoms AMB Urinalysis Automated Today Z13.9 - Encounter for screening, unspecified Referrals General Surgery Referral D17.9 - Benign lipomatous neoplasm, unspecified Patient Instructions: The patient had an opportunity to ask questions regarding the treatment plan. All questions were answered. Physical exam, labs, and imaging were discussed and reviewed in detail. As well as risks, benefits, and discussion of treatment choices. No major barriers to understanding were identified. The patient expressed understanding and agreement with the above treatment plan. The patient was made aware they should contact our office by phone for worsening of their current condition, the appearance of new symptoms, or with any questions or concerns. Compliance is encouraged with any medications and follow up testing that is ordered. It is a privilege to be allowed the opportunity to participate in? your urological care.? Again, if you have any questions or concerns If you have any questions or concerns please do not hesitate to contact me. The office is [phone]. This note is constructed using voice recognition software. While every effort has been made to ensure accuracy campus safety officer errors may have been included. Yours sincerely, NIKKY Jain Coding Level of Care Code Est Pt Level 3 (55257) Complex EM visit Add On G2211 Diagnoses Lipoma D17.9 Groin fullness R19.00 Urinary dribbling N39.43 BPH (benign prostatic hyperplasia) N40.0 CPT Codes Post Residual Void - PVR CPT Code: 63044-Yabj Void Residual by ultrasound ([id number])
== END 2024-03-20 11:10 | disposition home or self-care (01) ==
LOC: HO.HUSH 10:44
PROVIDERS: PCP Registered Nurse; Visit Provider Nurse Practitioner Family
DX: D17.9 Benign lipomatous neoplasm, unspecified (principal); R19.00 Intra-abdominal and pelvic swelling, mass and lump, unspecified site; N39.43 Post-void dribbling; N40.0 Benign prostatic hyperplasia without lower urinary tract symptoms
CPT/HCPCS: 99213; G2211

== ENCOUNTER → 2024-03-20 10:43 | Outpatient (BNVA) | payer OTHER, SELFPAY | PROVIDERS: PCP Registered Nurse; Visit Provider Nurse Practitioner Family | DX: N40.0 Benign prostatic hyperplasia without lower urinary tract symptoms (principal); D17.9 Benign lipomatous neoplasm, unspecified; R19.00 Intra-abdominal and pelvic swelling, mass and lump, unspecified site; N39.43 Post-void dribbling | CPT/HCPCS: 51798; 99212 ==

== ENCOUNTER 2024-03-23 14:37 | Outpatient (REF) | payer OTHER, SELFPAY ==
[2024-03-23 17:04] LABS: Blood Urea Nitrogen 21 mg/dL (9-16); Estimated Glomerular Filt Rate 58
== END 2024-03-23 14:38 | disposition home or self-care (01) ==
LOC: HO.HHCL 14:37
PROVIDERS: Visit Provider Nurse Practitioner Family
DX: R10.11 Right upper quadrant pain (principal)
CPT/HCPCS: 36415; 82565; 84520

== ENCOUNTER 2024-03-28 12:50 | Outpatient (REF) | payer OTHER, SELFPAY | END 2024-03-28 12:51 | disposition home or self-care (01) | LOC: HO.HHCL 12:50 | PROVIDERS: Visit Provider Student in an Organized Health Care Education/Training Program | DX: Z13.89 Encounter for screening for other disorder (principal) ==

== ENCOUNTER 2024-03-30 11:40 | Outpatient (REF) | payer OTHER, SELFPAY ==
[2024-04-03 08:58] LABS: PEU-Protein Creat Ratio Rand 0.058 (0.025-0.148); PEU-Rand. Prot/Creat Ratio 58 mg/g creat (25-148); PEU-Random Ur. Gamma Globulin 0 %; PEU-Random Urine A1 Globulin 0 %; PEU-Random Urine A2 Globulin 0 %; PEU-Random Urine Albumin 100 %; PEU-Random Urine Beta Globulin 0 %; PEU-Random Urine Creatinine 69 mg/dL (20-320); PEU-Random Urine Protein 4 mg/dL (5-25)
== END 2024-03-30 11:41 | disposition home or self-care (01) ==
LOC: HO.HHCLNP 11:40
PROVIDERS: Visit Provider Student in an Organized Health Care Education/Training Program
DX: R42 Dizziness and giddiness (principal)
CPT/HCPCS: 82570; 84156; 84166

== ENCOUNTER 2024-04-04 12:49 | Outpatient (AMB) | payer OTHER, SELFPAY ==
[2024-04-04 13:09] VITALS: BP 119/69; PULSE 61; O2SAT 97; BMI 28.4
--- NOTE | 2024-04-04 13:09 | A.OFFVIS_ITS ---
Vital Signs 04/04/24 13:09 Height 5 ft 9 in Weight 192 lb BMI 28.4 BP 119/69 Blood Pressure Location Lt brachial Position Sitting Pulse 61 Pulse Source Pulse Oximeter Pulse Oximetry (%) 97 Oxygen Delivery Method Room Air Intake Visit Reasons: CONTINOUS BACK PAIN Allergies No Known Allergies Allergy (Verified 04/04/24 13:09) Medication List - Last Reconciled 04/04/24 by Alize Moore aspirin 81 mg PO QAM atorvastatin 80 mg PO BEDTIME docusate sodium 100 mg PO DAILY famotidine 40 mg PO BEDTIME finasteride 5 mg PO DAILY 90 days fluoxetine 80 mg PO DAILY ketorolac 10 mg PO Q8H PRN levetiracetam 500 mg PO BID linaclotide (Linzess) 290 mcg PO QAM melatonin 3 mg PO BEDTIME methocarbamol 500 mg PO TID PRN rwwmwhmwspib-auhs-hcnyw acid 18-400 mg-mcg (Certavite-Antioxidant) 1 tab PO QAM nitroglycerin 0 mg sublingual ondansetron 4 mg PO Q6H PRN pantoprazole 40 mg PO BID primidone 50 mg PO BEDTIME propranolol 10 mg PO BID terazosin 5 mg PO BEDTIME 90 days topiramate XR 25 mg PO DAILY trazodone mg PO HPI Comments Details: Patient presents back to the office today for follow-up lower back pain. Visit was completed with healthcare interpreter Inderjit, [id number] Records from [facility] were scanned into the chart, those were reviewed for today's visit Patient continues with left lower back pain with radiation down the left leg to the foot Completed physical therapy 6 weeks ago, pain persists Denies any new injury Intake note: Inderjit is a very pleasant 63-year-old male who presents the office today for evaluation and management of his chronic lower back pain. Patient reports he has been suffering with this pain for greater than 20 years. Over the last 5 or 6 months it has progressively worsened. Now with pain down the left leg to the great toe Endorses numbness, tingling shooting, stabbing pain to the left lower extremity. Denies inciting injury, trauma or fall Pain is worse with sitting, walking and climbing stairs. Improves with relaxing and lying down. History of L4-5 fusion in [address] Uribe Had SCS implant done in 2007 with subsequent removal. Reports it did not help and was too difficult to use. Patient has been taking Tylenol and ibuprofen with minimal improvement He has not attempted physical therapy, home exercise program, acupuncture, chiropractor, massage or recent injections Denies red flag symptoms including new loss of bowel, bladder or saddle anesthesia Patient underwent MRI of lumbar spine last fall, results as per below In terms of muscle damage condition is described as sharp, shooting, cramping, numbness, pins and needles, tingling, aching Pain is negatively impacting patient's enjoyment of life, general activity, walking, sleeping Denies implantable devices, pacemaker or defibrillator Denies current use of alcohol, tobacco, nicotine or illicit substances Denies current use of anticoagulation medications PFSH Medical History CAD (coronary artery disease) Surgical History Hx of colonoscopy History of esophagogastroduodenoscopy (EGD) Family History Father Cancer Mother Cancer Social History Alcohol intake: never Patient Tobacco Use Status: Never used Tobacco Advance Directives Date on File: 02/25/21 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 Review of Systems Const All systems reviewed & are unremarkable except as noted in HPI and below Physical Exam Vital Signs: Last Vital Signs Pulse 61 04/04/24 13:09 BP 119/69 04/04/24 13:09 Pulse Ox 97 04/04/24 13:09 Oxygen Delivery Method Room Air 04/04/24 13:09 BMI result Body Mass Index 28.4 General: awake, alert, oriented. Answers questions appropriately. Fully engaged in examination. Skin: warm, dry, intact HEENT: Normocephalic. Hearing intact. Cardiac: External chest normal in appearance. Respiratory: No cough, audible wheezing or stridor. Abdomen: without gross distension. MS: No obvious swelling or deformities. Able to stand on bilateral tiptoes and bilateral heels.? Able to transition from sit to stand unassisted. Ambulates with bilaterally normal heel strike and toe off SLR positive on the left Minimally tender midline lumbar vertebrae and lumbar paraspinal muscles Facet loading positive bilaterally Nontender over bilateral PSIS Neurological: Oriented to person, place, time and situation. Thought process intact. No gait abnormalities appreciated. Psychiatric: Appropriate mood and affect. Good judgment and insight. Results Reviewed Results Reviewed: 03/19/2023 MRI lumbar spine FINDINGS: Prior L4-L5 interbody fusion with solid interbody arthrodesis at this level. Straightening of the normal lumbar lordosis. No significant spondylolisthesis. Vertebral body heights are maintained. There is no suspicious osseous lesion. Raced mild disc desiccation and disc height loss at T11-T12 with Kreis type I Modic endplate changes anteriorly. Increased type I Modic endplate change along the L2 anterior inferior endplate. L5 intraosseous hemangioma, unchanged. Multilevel type II Modic endplate change most pronounced at L4-L5. Multilevel anterior osteophytic spurring is seen. Level by level detail as follows: L1-L2: No spinal canal or neural foraminal stenosis. L2-L3: Shallow annular disc bulge and mild bilateral facet arthrosis. No spinal canal or neural foraminal stenosis. L3-L4: Annular disc bulge and mild bilateral facet arthrosis. No spinal canal or neural foraminal stenosis. L4-L5: Post interbody fusion with interbody arthrodesis and mild to moderate bilateral facet arthrosis. No spinal canal stenosis. Impression upon the traversing left L5 nerve root in the subarticular zone. No neural foraminal stenosis. L5-S1: Annular disc bulge, moderate right and mild left facet arthrosis. No spinal canal stenosis. Moderate right and mild to moderate left neural foraminal stenosis with mild mass effect along the exiting L5 nerve roots. The conus medullaris terminates at the level of L1. The distal spinal cord is normal in appearance. . No epidural fluid collection, hematoma, or mass. No significant abnormalities of the paraspinal musculature. Limited evaluation of the intra-abdominal structures without significant abnormalities. The abdominal aorta is of normal contour and caliber. IMPRESSION: Again seen interbody fusion at L4-L5 and minimal lumbar spondylosis without high-grade spinal canal or neural foraminal stenosis. Stable moderate right and mild to moderate left neural foraminal stenosis with mild mass effect along the exiting L5 nerve roots. Assessment & Plan Assessment & Plan (1) Lumbar facet arthropathy: Code(s): M47.816 - Spondylosis without myelopathy or radiculopathy, lumbar region Category: Medical (2) Lumbar radiculopathy: Code(s): M54.16 - Radiculopathy, lumbar region Category: Medical (3) Cervical post-laminectomy syndrome: Code(s): M96.1 - Postlaminectomy syndrome, not elsewhere classified Category: Medical (4) Post laminectomy syndrome: Code(s): M96.1 - Postlaminectomy syndrome, not elsewhere classified Category: Medical Plan Inderjit presented back to the office today for follow-up chronic lower back pain History, physical exam and provocative testing consistent with lumbar radiculopathy in the setting of post-laminectomy syndrome Patient has exhausted conservative therapy including PT, home exercise program, nonsteroidal anti-inflammatory medications [id number] medications, muscle relaxers without improvement of his symptoms Discussed options for treatment including diagnostic interventional testing, epidural steroid injections, peripheral nerve stimulation with Sprint, RFA and more permanent neuromodulation. Schedule for fluoroscopy guided left L5-S1 transforaminal epidural steroid injection with local anesthetic. Patient was advised that it may be difficult to access the intended target in order to perform given previous fusion with intact hardware. Previous surgically implanted spinal cord stimulator with subsequent removal eliminates the option for treatment with SCS in the future. If patient does not find relief with physical therapy or epidural steroid injection would consider intrathecal drug delivery device. All questions and concerns have been answered and patient agrees with the plan. Follow up after injections and sooner if needed. Coding Level of Care Code Est Pt Level 3 (06674) Complex EM visit Add On G2211 Diagnoses Lumbar facet arthropathy M47.816 Lumbar radiculopathy M54.16 Cervical post-laminectomy syndrome M96.1 Post laminectomy syndrome M96.1
== END 2024-04-04 13:24 | disposition home or self-care (01) ==
PROVIDERS: PCP Registered Nurse; Visit Provider Registered Nurse Emergency
DX: M47.816 Spondylosis without myelopathy or radiculopathy, lumbar region (principal); M54.16 Radiculopathy, lumbar region; M96.1 Postlaminectomy syndrome, not elsewhere classified
CPT/HCPCS: 99213; G2211

== ENCOUNTER → 2024-04-04 12:49 | Outpatient (BNVA) | payer OTHER, SELFPAY | PROVIDERS: PCP Registered Nurse; Visit Provider Registered Nurse Emergency | DX: R10.32 Left lower quadrant pain (principal); K59.04 Chronic idiopathic constipation; K21.9 Gastro-esophageal reflux disease without esophagitis; R19.5 Other fecal abnormalities; Z12.11 Encounter for screening for malignant neoplasm of colon; M47.816 Spondylosis without myelopathy or radiculopathy, lumbar region; M54.16 Radiculopathy, lumbar region; M96.1 Postlaminectomy syndrome, not elsewhere classified | CPT/HCPCS: 99212 ==

== ENCOUNTER 2024-04-04 13:57 | Outpatient (AMB) | payer OTHER, SELFPAY ==
--- NOTE | 2024-04-04 13:59 | MHC.OFFVIS ---
Intake Visit Reasons: 6 month follow up Intake Note: Relevant Flags or Indicators ? Requires Bait Man? Kaylen Jansen presents in office today for a scheduled 6 mos FUV. CC; Pt did complete labs and diagnostics as ordered. Pt has also been seen via [facility] since last OV. No new medications. ? Relevant GI Sx as reported per pt? Nausea ? Reflux ? Fecal abnormalities o?? Constipation ? Abdominal Pain; LLQ, pt states that this is a chronic issue that is becoming progressively worse. ? Hx of any recent surgeries? None Bait Man Required: Yes Bait Man Services: Bait Man Offered & Declined Allergies No Known Allergies Allergy (Verified 04/04/24 13:59) HPI HPI 6 month follow up: Details: LAST VISIT: Left lower quadrant abdominal pain Elevated fecal calprotectin Chronic idiopathic constipation GERD (gastroesophageal reflux disease) Plan Will stop Trulance and start patient on Linzess. He can take 290 mcg daily. I will send patient for CT enterography given elevated calprotectin. Possibly from localized colitis or diverticulitis in sigmoid colon, however can not rule out Crohn's which is very hard to detect. Patient normally has no diarrhea and is usually very constipated. Patient will get BUN and creatinine done week to 2 weeks before, will check his CRP level. Patient can continue taking pantoprazole and famotidine. Avoid dietary triggers and late night snacking. Staying upright for minimum 3 hours after meals discussed with patient. Patient will follow-up in the office in 6 months, sooner on as needed basis. Patient is agreeable to this plan and verbalizes understanding of instructions. He was given the opportunity to ask questions and all questions answered. Orders Orders CT enterography 08/03/23 R10.32, R19.5 Medications New linaclotide (Linzess) 290 mcg PO QAM 30 caps 4RF K59.00 TODAY'S VISIT Patient is here today for follow-up and to discuss CT enterography results. Results discussed with patient and they were all normal. Patient continues to have occasional acid reflux occasional nausea. Does admit to be eating better however occasionally still will eat food that we discussed before and it is not recommended. Patient reports that he is not moving his bowels with very well occasional left lower quadrant pain. Patient was given Linzess last visit, however it is not on a list of his medication. After closely reviewing Linzess was sent to different pharmacy and patient has not picked up the medication. We will send lower dose instead of 290 mcg. Patient reports that he is not drinking enough water. Is due to go for colonoscopy. Denies melena, hematochezia, unintentional weight loss or ribbon like stools. Patient denies any dyspepsia, dysphagia or odynophagia. 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 Review of Systems Const Denies weight gain and Denies weight loss ENT Reports no additional complaints, Denies dysphagia and Denies odynophagia Card Reports no additional complaints Resp Reports no additional complaints GI Denies abdominal pain, Denies belching, Denies melena, Reports bloating (Occasional), Denies change in bowel habits, Reports constipation, Denies dysphagia, Denies excessive flatus, Denies dyspepsia, Reports heartburn (Occasional), Denies diarrhea, Denies loose stools, Reports nausea (Occasional), Denies odynophagia and Denies vomiting Reports no additional complaints Musc Reports no additional complaints Neuro Reports no additional complaints Psych Reports no additional complaints Endo Reports no additional complaints Physical Exam Const General: healthy appearing, no acute distress and well developed Nutritional Appearance: well nourished Orientation/consciousness: patient oriented x3 Resp Effort & Inspection: normal respiratory effort, able to speak in complete sentences, no tracheal deviation and symmetric chest movement Auscultation: clear to auscultation bilaterally Cardio Rate: regular rate GI Inspection: Yes normal to inspection and No distended Palpation (GI): Soft to palpation, not firm, nontender and No hepatosplenomegaly present Auscultation: normal bowel sounds General: Yes no CVA tenderness Back/Spine/Pelvis Back: no CVA tenderness Skin General skin exam: elasticity normal, turgor normal and dry skin Neuro General: patient oriented x3 Psych Appearance: grossly normal Mental Status: mental status grossly normal Results Reviewed Results Reviewed: CT ENTEROGRAPHY FINDINGS: GASTROINTESTINAL FINDINGS: Stomach: Well-distended and normal in appearance. Small intestine: Satisfactorily distended and normal in appearance. Large intestine: Well-distended and normal in appearance. No perirectal changes demonstrated. The appendix is normal. Additional findings: No abnormal enhancement of the vasa recta or significant mesenteric or retroperitoneal lymphadenopathy is seen. No abdominal abscess or fistulous tract demonstrated. ABDOMINAL AND PELVIC CT FINDINGS: Liver, gallbladder, biliary tract: Liver is homogeneous without masses or ductal dilatation, not enlarged. The gallbladder is well distended without stones. There is no biliary ductal dilatation. Pancreas: Pancreas is unremarkable Spleen: Spleen is of normal size and shape. Adrenal glands and kidneys: There is no adrenomegaly. Both kidneys demonstrate normal attenuation no evidence of hydroureteronephrosis or nephrolithiasis. Ureters and bladder: Unremarkable. Lymphovascular structures: Unremarkable. Bones: Patient is status post fusion at the level of and L4-L5. Lung bases: Clear Assessment & Plan Assessment & Plan (1) Left lower quadrant abdominal pain: Code(s): R10.32 - Left lower quadrant pain Category: Medical (2) Elevated fecal calprotectin: Code(s): R19.5 - Other fecal abnormalities (3) Chronic idiopathic constipation: Code(s): K59.04 - Chronic idiopathic constipation (4) GERD (gastroesophageal reflux disease): Code(s): K21.9 - Gastro-esophageal reflux disease without esophagitis Qualifiers: Esophagitis presence: esophagitis presence not specified Qualified Code(s): K21.9 - Gastro-esophageal reflux disease without esophagitis (5) Screen for colon cancer: Code(s): Z12.11 - Encounter for screening for malignant neoplasm of colon Plan Continue current treatment with PPI and H2 lea. Avoid dietary triggers and late night snacking. Staying upright for minimum 3 hours after meals discussed with patient. Patient can start taking Linzess 145 mcg. TAYLOR Sinha verified with [facility] pharmacy that the medication will be ready for patient to be picked up today. He will return in 2 months to discuss colonoscopy in making sure that he is moving his bowels better now. Avoid dietary triggers and late night snacking. List of food to avoid and list of food recommended given to patient. We did talk about low FODMAP diet in particularly. Patient does have a history of CAD and has seen cardiology. Next appointment in May. We will ask for risk stratification before going for procedure. Currently patient does not have any cardiac or respiratory symptoms. He is agreeable to current plan of care and verbalizes understanding of instructions. He was given the opportunity to ask questions and all questions answered. Thank you for allowing me to participate in his care Medications: New linaclotide (Linzess) 145 mcg PO DAILY 30 caps 4RF K59.04 - Chronic idiopathic constipation Discontinued linaclotide (Linzess) Discontinued Reason: Insurance Denied 290 mcg PO QAM 30 caps 4RF K59.00 - Constipation, unspecified Coding Level of Care Code Est Pt Level 4 (63372) Complex EM visit Add On G2211 Diagnoses Left lower quadrant abdominal pain R10.32 Elevated fecal calprotectin R19.5 Chronic idiopathic constipation K59.04 Gastroesophageal reflux disease, unspecified whether esophagitis present K21.9 Esophagitis presence: esophagitis presence not specified Screen for colon cancer Z12.11 Time Spent (min) 35 Comment 20 minutes spent with patient and additional 15 minutes spent reviewing his records
== END 2024-04-04 14:56 | disposition home or self-care (01) ==
PROVIDERS: PCP Student in an Organized Health Care Education/Training Program; Visit Provider Nurse Practitioner Family
DX: R10.32 Left lower quadrant pain (principal); R19.5 Other fecal abnormalities; K59.04 Chronic idiopathic constipation; K21.9 Gastro-esophageal reflux disease without esophagitis; Z12.11 Encounter for screening for malignant neoplasm of colon
CPT/HCPCS: 99214; G2211

== ENCOUNTER → 2024-04-10 09:08 | Outpatient (REF) | payer OTHER, SELFPAY ==
--- NOTE | ~2024-04-10 | NM_ITS ---
EXERCISE MYOCARDIAL PERFUSION STUDY INDICATION: Chest pain TECHNIQUE: The patient was brought in for an exercise perfusion study on 04/10/2024. Patient performed exercise as per Saulo protocol and was injected 30 mCi of sestamibi once target heart rate was achieved. Images were obtained using the SPECT gamma camera interlaced with the gating device. Images were obtained in supine position. Resting perfusion study was performed on 04/11/2024. Patient was administered 30 mCi of sestamibi intravenously at rest. Images were then obtained in supine position. Total DLP 186 mGy-cm. Images were processed with the software and compared side to side in short axis, horizontal long axis and vertical long axis views. FINDINGS: Raw aquisition reviewed. Arms by the patient's side. The stress perfusion study showed decreased tracer uptake along the inferior wall. There is improvement with CT attenuation correction suggestive of diaphragmatic attenuation artifact. There is also reduced tracer uptake in the mid anterior wall. No major change with CT attenuation correction. The gated study shows normal LV systolic function with calculated LVEF of 61%. LV cavity is normal in size. The gated study shows normal wall thickening and contraction of segments. Resting study shows mildly reduced tracer uptake in the mid anterior wall. There is also reduced tracer uptake along the inferior wall. In the CT attenuation corrected images, there is prominent subdiaphragmatic uptake. Overall, there is subdiaphragmatic uptake seen during stress and rest. Gating at rest reveals normal wall motion with ejection fraction at 52%. The findings are consistent with fixed mid anterior defect; inferior defect difficult to assess due to subdiaphragmatic uptake. NM/NM cardiolite stress test IMPRESSION: 1. Myocardial perfusion imaging study shows fixed mid anterior defect; could reflect nontransmural infarct. Possible defect in the inferior wall but difficult to assess because of subdiaphragmatic uptake. Consider further testing as clinically indicated. 2. Gated LVEF is 61% during stress and 52% during rest. 3. Transient ischemic dilatation not present. EKG component of the test reported separately. Electronically signed by: Chin Collins MD 04/14/2024 01:01 PM JOAQUIN
--- NOTE | 2024-04-10 09:11 | CA_ITS ---
Acquisition Time: 2024-04-10 09:40:46 Total Exercise Time: 00:06:35 Test Indications: CP Medications: See H Protocol: BASIM Max HR: 137 BPM 87% of Pred: 157 BPM Max BP: 160/066 mmHG Max Work Load: 7.8 METS Exercise Stress Test with exercise 6 min 35 secs of Basim Protocol, achieving 87% MPHR, with reports of chest pressure 4/10 on the left side that begun in stage I that remained the same during exercise and mild dizziness, without any arrythmias, with normotensive response to exercise. Without any EKG changes meeting criteria for ischemia. In recovery, chest pressure and lightheadedness improved gradually. Nuclear images pending. Test reviewed with Dr. Collins. Referred By: Sharan Mariscal Overread By: TRISTIN HOUSTON
== END ==
LOC: HO.CARD 09:08
PROVIDERS: PCP Student in an Organized Health Care Education/Training Program; Visit Provider Internal Medicine Cardiovascular Disease
DX: I25.10 Atherosclerotic heart disease of native coronary artery without angina pectoris (principal); R55 Syncope and collapse; R00.2 Palpitations
CPT/HCPCS: 78452; 93017; A9500; J0280; J2785

== ENCOUNTER → 2024-04-10 09:11 | Outpatient (BNV) | payer OTHER, SELFPAY | PROVIDERS: PCP Student in an Organized Health Care Education/Training Program; Visit Provider Nurse Practitioner Family | DX: R07.9 Chest pain, unspecified (principal) | CPT/HCPCS: 78452; 93016; 93018 ==

== ENCOUNTER 2024-04-17 13:44 | Outpatient (REF) | payer OTHER, SELFPAY | END 2024-04-17 13:45 | disposition home or self-care (01) | LOC: HO.LNP 13:44 | PROVIDERS: PCP Student in an Organized Health Care Education/Training Program; Referring Provider Student in an Organized Health Care Education/Training Program; Visit Provider Surgery | DX: D17.24 Benign lipomatous neoplasm of skin and subcutaneous tissue of left leg (principal) | CPT/HCPCS: 11404; 88304; 99212 ==

== ENCOUNTER 2024-04-17 13:44 | Outpatient (AMB) | payer OTHER, SELFPAY ==
--- NOTE | 2024-04-17 13:47 | A.OFFVIS_ITS ---
Vital Signs 04/17/24 13:53 Height 5 ft 9 in Weight 193 lb BMI 28.5 BP 123/80 Blood Pressure Location Rt brachial Position Sitting Pulse 90 Intake Visit Reasons: lipoma of the thigh Intake Note: Patient referred by pcp Dr. Jamari Navarro for lipoma on lt post thigh. Present for 3yrs. Patient c/o: enlarging, itchy at times. 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 Accompanied by: Self / Same As Patient Allergies No Known Allergies Allergy (Verified 04/17/24 13:51) Medication List - Last Reconciled 04/17/24 by Francesco Winston MD aspirin 81 mg PO QAM atorvastatin 80 mg PO BEDTIME docusate sodium 100 mg PO DAILY famotidine 40 mg PO BEDTIME finasteride 5 mg PO DAILY 90 days fluoxetine 80 mg PO DAILY ketorolac 10 mg PO Q8H PRN levetiracetam 500 mg PO BID linaclotide (Linzess) 145 mcg PO DAILY melatonin 3 mg PO BEDTIME methocarbamol 500 mg PO TID PRN vmfjbiqwhrnb-krck-lqapo acid 18-400 mg-mcg (Certavite-Antioxidant) 1 tab PO QAM nitroglycerin 0 mg sublingual ondansetron 4 mg PO Q6H PRN pantoprazole 40 mg PO BID primidone 50 mg PO BEDTIME propranolol 10 mg PO BID terazosin 5 mg PO BEDTIME 90 days topiramate XR 25 mg PO DAILY trazodone mg PO HPI Comments Details: Patient presents for evaluation of a left posterior mid thigh mass/lipoma. He has had this several years time. His increasing in size, and becoming more symptomatic. He would like to have removed. He has no such lesions elsewhere. 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 Office Procedures Excision Details: Risks, benefits, alternatives of left posterior thigh lipoma excision were reviewed with the patient and included but not limited to bleeding, infection, recurrence, numbness, pain, scarring, wound dehiscence, seroma formation and the patient wished to proceed. All questions answered. Consent site. After appropriate positioning, patient underwent 1% lidocaine and Betadine prep and longitudinal incision was made over lipoma question carried down through skin, subcutaneous tissue, uneventful enucleation of the lipoma with dimensions as described in the H and P was performed. Specimen sent to pathology. Wound was irrigated, secured hemostasis, and closed using running subcuticular 3-0 Vicryl suture followed by Steri-Strips and sterile dressings. Patient tolerated procedure well [id number]-[id number]/arms/legs 3.1-4cm Procedure code (CPT) selection complete Office Meds lidocaine 1 %-epinephrine 1:100,000 injection solution Performing Provider: Francesco Winston MD Performing Location: [facility] [place] General Surgeons Administered by: Francesco Winston MD on 04/17/24 14:16 Dose Route Admin Location Dispensed Lot Number Expiration Date [facility] [place] [employer] 10 mL Infiltration 10 mL Assessment & Plan Assessment & Plan (1) Lipoma of left lower extremity: Code(s): - Benign lipomatous neoplasm of skin and subcutaneous tissue of left leg Category: Surgical Plan: Patient was been given local instructions including ice to the wound periodically, may shower in 2 days and we are going on the outside dressing leaving Steri-Strips intact, Tylenol or Motrin p.r.n. pain, no strenuous activities. All questions answered. Patient will see me as directed or p.r.n.. Orders: Orders AMB Excision Today - Benign lipomatous neoplasm of skin and subcutaneous tissue of left leg Medications: New lidocaine-epinephrine 1 %-1:100,000 10 mL Infiltration ONCE 30 mL 0RF - Benign lipomatous neoplasm of skin and subcutaneous tissue of left leg Coding Level of Care Code Global (19903) Diagnoses Lipoma of left lower extremity D17.24 CPT Codes Trunk/Arms/Legs - CPT: 06888-nefwf/arms/legs 3.1-4cm ([id number])
[2024-04-17 13:53] VITALS: BP 123/80; PULSE 90; BMI 28.5
== END 2024-04-17 14:16 | disposition home or self-care (01) ==
PROVIDERS: PCP Student in an Organized Health Care Education/Training Program; Referring Provider Student in an Organized Health Care Education/Training Program; Visit Provider Surgery
DX: D17.24 Benign lipomatous neoplasm of skin and subcutaneous tissue of left leg (principal)
CPT/HCPCS: 11404; 99214

== ENCOUNTER 2024-04-24 13:06 | Outpatient (AMB) | payer OTHER, SELFPAY ==
--- NOTE | 2024-04-24 13:08 | A.OFFVIS_ITS ---
Intake Visit Reasons: 1 week follow op lipoma of the thigh Intake Note: Patient here s/p WLE lt post thigh on 04-18-2024. Patient c/o: Reports excision site healing well. Denies pain, itch, oozing. 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 No wound issues or complaints. Pathology is benign. 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 All questions answered. Coding Level of Care Code Global (76280) Diagnoses Postop check Z09
== END 2024-04-24 13:13 | disposition home or self-care (01) ==
PROVIDERS: PCP Student in an Organized Health Care Education/Training Program; Visit Provider Surgery
DX: Z09 Encounter for follow-up examination after completed treatment for conditions other than malignant neoplasm (principal)
CPT/HCPCS: 99024

== ENCOUNTER → 2024-04-24 13:06 | Outpatient (BNVA) | payer OTHER, SELFPAY | PROVIDERS: PCP Student in an Organized Health Care Education/Training Program; Visit Provider Surgery | DX: Z09 Encounter for follow-up examination after completed treatment for conditions other than malignant neoplasm (principal) | CPT/HCPCS: 99212 ==

== ENCOUNTER → 2024-05-07 13:13 | Outpatient (BNV) | payer OTHER, SELFPAY | PROVIDERS: PCP Student in an Organized Health Care Education/Training Program; Visit Provider Internal Medicine | DX: D72.819 Decreased white blood cell count, unspecified (principal) | CPT/HCPCS: 99204; G2211 ==

== ENCOUNTER 2024-05-31 12:57 | Emergency (ER) | payer OTHER, SELFPAY ==
[2024-05-31] VITALS (9 sets, daily range): BP systolic 116–144; BP diastolic 73–81; PULSE 59–82; RESP 14–17; TEMP 36.4–36.8; O2SAT 96–99; BMI 28.9
--- NOTE | ~2024-05-31 | CT_ITS ---
EXAMINATION: CT ANGIOGRAM HEAD AND NECK CLINICAL INFORMATION: Dizziness. COMPARISON: Noncontrast head CT 02/14/2024. No prior angiography. TECHNIQUE: Noncontrast axial imaging of the head was performed. This was followed by test bolus sequences and head and neck intravenous bolus administration 70 mL of Omnipaque 350 iodinated contrast. Helical imaging was performed in the axial plane from the aortic arch to the skull vertex. A [address] head was also obtained. The data was processed at the agricultural research technologist's workstation for generation of MIP sequences. Angled MIPs and volume rendered reformatted images were also generated at an offline 3D workstation. Stenoses are assessed in accordance with NASCET criteria unless otherwise indicated. This CT examination was performed using dose optimization techniques as appropriate, variously including the following: *Automated exposure control *Adjustment of mA and/or kV according to patient size (this includes techniques or standardized protocols for targeted exams where dose is matched to indication/reason for exam; i.e. extremities or head) *Use of iterative reconstruction technique FINDINGS: NONCONTRAST HEAD CT: There is no evidence of intracranial hemorrhage or extra-axial fluid collection. There is no mass effect, or edema. No CT evidence of acute territorial infarct. Ventricles, sulci, and cisterns are normal in size and configuration for patient age. No hydrocephalus. No midline shift. Negative hyperdense MCA sign is negative insular ribbon sign. No significant white matter abnormalities. Globes and orbital contents image normally. No extracranial soft tissue abnormalities. The paranasal sinuses, mastoid air cells, and tympanic cavities are normally aerated. No suspicious bony abnormalities. NECK CTA: -AORTIC ARCH: Normal in caliber. -GREAT VESSEL ORIGINS: 3 vessel branching pattern. Origins widely patent. -RIGHT COMMON CAROTID ARTERY: Normal in caliber and course to the level of the bifurcation. -CERVICAL RIGHT INTERNAL CAROTID ARTERY: Mild to moderate calcific and soft plaque in the carotid bulb with an approximate 20% stenosis evident. Remainder of the vessel is normal in course and caliber into the skull base. -LEFT COMMON CAROTID ARTERY: -CERVICAL LEFT INTERNAL CAROTID ARTERY: Moderate calcific plaque at the carotid bulb and origin of the left ICA, resulting in an approximate 30% stenosis. Remainder muscle is normal in course and caliber into the skull base. -CERVICAL RIGHT VERTEBRAL ARTERY: Patent origin, and normal in course and caliber throughout into the skull base. No stenosis or dissection. Codominant. -CERVICAL LEFT VERTEBRAL ARTERY: Patent origin, and normal in course and caliber throughout into the skull base. No stenosis or dissection. Codominant. OTHER, SOFT TISSUES: -No masses or lymphadenopathy. -Mildly heterogeneous appearing thyroid gland without dominant nodule by CT. -No retropharyngeal abnormality. -Imaged lung apices are clear aside from mild dependent atelectasis. -Imaged superior mediastinal contents appear normal. OSSEOUS STRUCTURES: -No suspicious lesions. Normal-appearing cervical spine. CTA OF THE BRAIN: -INTRACRANIAL INTERNAL CAROTID ARTERIES: Mild calcification of the carotid siphons without stenosis. No aneurysm. Normal carotid termini. -RIGHT ANTERIOR CEREBRAL ARTERY: Normal A1 segment. Normal arborization of the distal segments. -LEFT ANTERIOR CEREBRAL ARTERY: Normal A1 segment. Normal arborization of the distal segments. -ANTERIOR COMMUNICATING ARTERY: Normal. -RIGHT MIDDLE CEREBRAL ARTERY: Normal M1 segment of the MCA without focal stenosis or occlusion. Normal arborization of the distal segments. -LEFT MIDDLE CEREBRAL ARTERY: Normal M1 segment of the MCA without focal stenosis or occlusion. Normal arborization of the distal segments. -RIGHT VERTEBRAL ARTERY V4: Normal in course and caliber. Normal PICA branch. -LEFT VERTEBRAL ARTERY V4: Normal in course and caliber. Normal PICA branch. -BASILAR ARTERY: Both Vertebrals join to form the basilar. Basilar artery is normal without focal stenosis or occlusion. Normal appearance of the proximal superior cerebellar arteries. Normal basilar tip. -RIGHT POSTERIOR CEREBRAL ARTERY: The P1 segment is diminutive. origin of the ANTIQUE CLOCK REPAIRER with robust opacification of the posterior communicating artery. Normal opacification of the distal ANTIQUE CLOCK REPAIRER segments. -LEFT POSTERIOR CEREBRAL ARTERY: Normal P1 segment. Normal opacification of the distal ANTIQUE CLOCK REPAIRER segments. -POSTERIOR COMMUNICATING ARTERIES: Left is not well seen. Right patent. -MIPPED reformats demonstrate no regions of oligemia within the supratentorial or infratentorial brain. Normal opacification of the superior sagittal, straight, transverse, and sigmoid sinuses. No venous thrombosis. CT/CT angio head neck IMPRESSION: 1. Noncontrast head CT demonstrating no evidence of intracranial hemorrhage, mass effect, or acute territorial infarct. 2. CT angiogram of the head and neck showing no evidence of significant vascular stenosis, occlusion, aneurysm, or dissection. 3. Mild to moderate soft and calcific atheromatous plaque right carotid bulb and proximal ICA results in approximate 20% stenosis. 4. Mild to moderate predominantly calcific plaque left carotid bulb and proximal ICA results in approximate 30% stenosis. 5. See the body the report for additional ancillary findings. Electronically signed by: Osmin Lainez MD 05/31/2024 04:01 PM JOAQUIN ZHENG
--- NOTE | ~2024-05-31 | CT_ITS ---
EXAMINATION: CT CERVICAL SPINE WITHOUT CONTRAST CLINICAL INFORMATION: Syncope. Status post fall. Dizziness. COMPARISON: CT dated May 20, 2020. TECHNIQUE: Diffuse axial images through the cervical spine using 3 mm collimation with bone and soft tissue algorithm. Sagittal and coronal reformatted images acquired. This CT examination was performed using dose optimization techniques as appropriate, variously including the following: *Automated exposure control *Adjustment of mA and/or kV according to patient size (this includes techniques or standardized protocols for targeted exams where dose is matched to indication/reason for exam; i.e. extremities or head) *Use of iterative reconstruction technique. DLP: 2963 mGy centimeter FINDINGS: Craniocervical junction is intact. C1 is intact. C2 is intact. C3 is intact. C4 is intact. C5 is intact. C6 is intact. C7 is intact. No gross prevertebral compartment hematoma. No gross malalignment. Mild marginal osteophyte formation C5-6 and C4-5 and C3-4 levels. Calcified plaques in the carotid bulbs and proximal ICAs bilaterally. Tympanic cavities are well aerated. CT/CT cervical spine wo IV con IMPRESSION: No acute fracture or trauma-related listhesis. Stable appearance since prior exam. Atherosclerosis disease, carotid bulbs and proximal ICAs. Fleischner guidelines were followed. Electronically signed by: Blu Farrell MD 05/31/2024 03:48 PM JOAQUIN
--- NOTE | 2024-05-31 13:28 | ED.SYNCOPE ---
HPI - Syncope General Chief Complaint: Syncope Stated Complaint: fainted Time Seen by Provider: 05/31/24 13:45 Source: patient Mode of arrival: ambulatory History of Present Illness ED Provider: Lena MINOR narrative: 63-year-old male with presentation for a fainting episode that occurred shortly after he use the bathroom this morning, he reports he has chronic vertigo that he treats with meclizine. He denies any shortness of breath, does report some intermittent sharp chest discomfort that he states goes into his left arm. He reports that currently he is asymptomatic from dizziness/vertigo as well as no chest pain. Patient denies any missed antiseizure medication. Related Data Home Medications ?Medication ?Instructions ?Recorded ?Confirmed aspirin 81 mg tablet,delayed 81 mg PO QAM 12/08/20 04/24/24 release atorvastatin 80 mg tablet 80 mg PO BEDTIME 12/08/20 04/24/24 nitroglycerin 0.4 mg sublingual 0 mg sublingual 08/16/22 04/24/24 tablet levetiracetam 500 mg tablet 500 mg PO BID 11/15/22 04/24/24 multivitamin-ferrous 1 tab PO QAM 11/15/22 04/24/24 fumarate-folic acid 18 mg-400 mcg tablet (Certavite-Antioxidant) fluoxetine 40 mg capsule 80 mg PO DAILY 12/20/22 04/24/24 primidone 50 mg tablet 50 mg PO BEDTIME 08/03/23 04/24/24 topiramate 25 mg capsule,extended 25 mg PO DAILY 08/03/23 04/24/24 release 24 hr multivitamin-ferrous tab PO 05/07/24 05/07/24 fumarate-folic acid 18 mg-400 mcg tablet (Certavite-Antioxidant) Previous Rx's ?Medication ?Instructions ?Recorded famotidine 40 mg tablet 40 mg PO BEDTIME #90 tabs 12/29/23 linaclotide 290 mcg capsule 290 mcg PO QAM #30 caps 05/21/24 (Linzess) finasteride 5 mg tablet 5 mg PO DAILY 90 days #90 tabs 05/22/24 terazosin 5 mg capsule 5 mg PO BEDTIME 90 days #90 caps 05/22/24 Allergies Allergy/AdvReac Type Severity Reaction Status Date / Time No Known Allergies Allergy Verified 05/31/24 13:27 Review of Systems Review of Systems: Pertinent positives and negatives as stated in [facility] Past Medical History Source: nursing notes reviewed Medical History CAD (coronary artery disease) Surgical History Hx of colonoscopy History of esophagogastroduodenoscopy (EGD) Family History Family History Father Cancer Throat cancer Mother Cancer Sister FH: kidney cancer Breast cancer Social History Social History Alcohol intake: never Patient Tobacco Use Status: Never used Tobacco Smoked in Last 30 Days: No Use of substances other than those prescribed or required for medical reasons: No Advance Directives: Yes Advance Directives on File: Yes Advance Directives Date on File: 02/25/21 Do you have a plan to hurt others: No Plan 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 Gender identity: Male Physical Exam Vital Signs: Vital Signs: Last Vital Signs Temp 98.1 F 05/31/24 14:30 Pulse 59 05/31/24 14:30 Resp 14 05/31/24 14:30 BP 133/73 05/31/24 14:30 Pulse Ox 96 05/31/24 14:30 O2 Del Method Room Air 05/31/24 14:30 BMI result Body Mass Index 28.9 VITAL SIGNS: Reviewed. GENERAL: Well developed, well nourished, in no acute distress. HEAD: Normocephalic/atraumatic EYES: PERRLA, EOMI EARS: Ext canals without abnormality NOSE: Nares patent bilateral OROPHARYNX: no oral lesions noted, posterior pharynx clear NECK: Supple, no adenopathy LUNGS: Normal breath sounds. No adventitious sounds or accessory muscle use. SpO2<96> CARDIOVASCULAR: Regular rate and rhythm without noted murmurs ABDOMEN: Soft, non-tender, non-distended with bowel sounds. MUSCULOSKELETAL: No tenderness, deformities, or effusions noted on gross inspection. EXTREMITIES: No cyanosis, clubbing or edema. SKIN: Inspection of the skin reveals no rashes NEUROLOGIC: Alert and oriented x 4. Strength and sensation to light touch were grossly intact x 4, no facial asymmetry, no pronator drift, cranial nerves 2-12 are grossly intact, cerebellar testing is intact.. Course Course Course Narrative: This is an RME: Additional HPI, ROS, PE not included below will be deferred to primary provider. RME assessment and note performed by: Tala Delgadillo PA-C This is a [id number]-male, with a hx of epilepsy, CAD, CPH, HLD, depression, anxiety, who presents to the ER with complaints of dizziness since this morning. He states that he is chronically dizzy however states that this morning he was more dizzy when he woke up. He states that he was feeling well yesterday. He states that he fainted, and was on the ground. He is unsure how long he was unconscious for. He denies any missed dosages of his Keppra. He states that he has had left arm weakness - can not appreciate this on examination. He is alert and oriented x4, no focal deficits on examination. NIH score of 0. Plan: Labs, EKG, CTA, further ER eval needed Medications Administered Discontinued Medications Generic Name Dose Route Start Last Admin Trade Name Nealq PRN Reason Stop Dose Admin Iohexol 100 ml 05/31/24 14:51 05/31/24 14:52 Iohexol 350 Mg/Ml 100 Ml Infus..Btl IV 05/31/24 14:52 70 ml ONCE ONE Administration Levetiracetam 500 mg 05/31/24 14:39 05/31/24 15:10 Levetiracetam 500 Mg Tablet PO 05/31/24 14:40 500 mg ONCE ONE Administration Meclizine HCl 12.5 mg 05/31/24 15:16 05/31/24 15:54 Meclizine Hcl 12.5 Mg Tablet PO 05/31/24 15:17 12.5 mg ONCE ONE Administration Medical Decision Making Medical Decision Making MDM Narrative: 63-year-old male with history and clinical presentation, DDX: Vasovagal syncope, will rule out underlying infection, anemia, electrolyte derangements, cardiac arrhythmia, there are no focal findings, also possibility of breakthrough seizure. EKG: Normal sinus rhythm, HR -65, no STEMI, CT/QRS/QTC/QTC are within limits. There are no acute changes when compared to prior EKG from 12/14/2023. I reviewed and interpreted all investigations and there is no evidence of infectious leukocytosis, anemia, or thrombocytopenia. Coagulation studies are within normal limits. No evidence of JESSICA/electrolyte or liver enzyme derangements. I sensitivity troponin is undetectable and not associated with any ischemic changes. Keppra level is still pending. Viral testing is negative for flu/RSV/COVID. CT angio of head and neck negative for critical stenoses or clinically significant clots. Patient received 500 mg of Keppra as well as 12.5 mg of meclizine. He reports feeling improved, workup was otherwise reassuring and felt to be completely vasovagal in etiology likely secondary to poor p.o. intake. Differential Diagnosis Differential Diagnoses: The differential diagnosis associated with the presentation includes See above Admission/Observation Consideration of admission/observation: Escalation of care including admission/observation considered Does not meet inpatient level of care Lab Data MDM Lab Attestation statement: I reviewed the patient's lab results. See above 05/31/24 13:41 05/31/24 13:41 Labs: Lab Results 05/31/24 05/31/24 Range/Units 13:41 13:49 WBC 5.3 (4.8-10.8) X10*3/uL RBC 5.32 (4.60-5.80) X10*6/uL Hgb 14.7 (14.0-18.0) g/dl Hct 45.4 (42.0-52.0) % MCV 85.3 (80.0-98.0) fL MCH 27.6 (27.0-33.0) pg MCHC 32.4 (31.0-36.0) g/dl RDW 13.2 (11.0-16.0) % Plt Count 176 (160-400) X10*3/uL MPV 9.8 (9.4-12.4) fL Immature Gran % (Auto) 0.4 (0.0-0.4) % Neut % (Auto) 70.4 (45-73) % Lymph % (Auto) 23.3 (20-40) % Carbon % (Auto) 4.9 (2-11) % Eos % (Auto) 0.6 (0-4) % Baso % (Auto) 0.4 (0-2) % Lymph # (Auto) 1.2 (1.2-4.9) X10*3/uL Carbon # (Auto) 0.3 (0.1-1.2) X10*3/uL Eos # (Auto) 0.0 (0.0-0.4) X10*3/uL Baso # (Auto) 0.0 (0.0-0.2) X10*3/uL Abs Immat Gran (auto) 0.02 (0.00-0.03) X10*3/uL Absolute Neuts (auto) 3.7 (2.0-8.3) x10*3/uL Absolute Nucleated RBC 0.000 (0.0-0.012) X10*3/uL Nucleated RBC % (auto) 0.0 (0.0-0.2) /100WBC PT 12.1 (10.9-12.4) SEC INR 1.0 (0.9-1.1) APTT 28.1 (26.0-36.8) SEC Sodium 141 (135-145) mmol/L Potassium 4.4 (3.3-5.1) mmol/L Chloride 109 H (96-108) mmol/L Carbon Dioxide 27 (22-29) mmol/L Anion Gap 9 L (12-20) BUN 20 H (9-16) mg/dL Creatinine 1.13 (0.5-1.4) mg/dL Estim Creat Clear Calc 73.7 Estimated GFR > 60 Random Glucose 102 (60-115) mg/dL Calcium 9.3 (8.4-10.2) mg/dL Magnesium 2.0 (1.6-2.6) mg/dL Total Bilirubin 1.0 (0.0-1.0) mg/dL Direct Bilirubin 0.3 (0.0-0.5) mg/dL AST 28 (5-37) U/L ALT 75 H (0-40) U/L Alkaline Phosphatase 96 (39-117) U/L Troponin I High Sens < 2.7 (<3.5-35.0) ng/L Total Protein 7.8 (6.5-8.0) g/dL Albumin 4.4 (3.5-5.0) g/dL Influenza Type A (PCR) NEGATIVE (Negative) Influenza Type B (PCR) NEGATIVE (Negative) RSV RNA Qual (PCR) NEGATIVE (Negative) SARS-CoV-2 RNA (RT-PCR) NEGATIVE (Negative) Independent Interpretation I performed an independent interpretation of an: EKG and CT Scan Interpretation: See above Radiology Impression Discussion of test interpretation with radiology: I have reviewed the radiologist's reading. Radiologist Impression: See above External Record Review External record reviewed: Outpatient record, Prior outpatient labs and Prior outpatient radiology Chronic Conditions Patient?s care impacted by: Hypertension Discharge Plan Discharge Clinical Impression: Syncope, vasovagal, Chronic vertigo Patient Disposition: Home, Self-Care Instructions: Vertigo (ED), Syncope (ED) Additional Instructions: Resume all home medications as prescribed. Please continue to drink plenty of fluids, especially water. Follow-up with your primary care doctor in the next 1-2 days for re-evaluation further outpatient management and do not hesitate to return to the emergency room immediately for any acute worsening of symptoms. Prescriptions: No Action famotidine 40 mg tablet 40 mg PO BEDTIME Qty: 90 3RF Linzess 290 mcg capsule 290 mcg PO QAM Qty: 30 4RF finasteride 5 mg tablet 5 mg PO DAILY 90 Days Qty: 90 2RF terazosin 5 mg capsule 5 mg PO BEDTIME 90 Days Qty: 90 1RF Certavite-Antioxidant 18-400 mg-mcg Tablet PO atorvastatin 80 mg tablet 80 mg PO BEDTIME aspirin 81 mg tablet,delayed release (DR/EC) 81 mg PO QAM nitroglycerin 0.4 mg tablet, sublingual 0 mg sublingual levetiracetam 500 mg tablet 500 mg PO BID Certavite-Antioxidant 18-400 mg-mcg tablet 1 tab PO QAM primidone 50 mg tablet 50 mg PO BEDTIME topiramate 25 mg capsule,extended release 24hr 25 mg PO DAILY fluoxetine 40 mg capsule 80 mg PO DAILY Referrals: Sherri Selby MD [Primary Care Provider] - Print Language: Cypriot
--- NOTE | 2024-05-31 13:32 | ECG_ITS ---
Test Reason : NEURO SYMPTOMS/ DIZZINESS Blood Pressure : */* mmHG Vent. Rate : 65 BPM Atrial Rate : 65 BPM P-R Int : 116 ms QRS Dur : 82 ms QT Int : 384 ms P-R-T Axes : 25 0 23 degrees QTcB Int : 399 ms Normal sinus rhythm Normal ECG When compared with ECG of 14-Dec-2023 17:19, No significant change was found Referred By: Tala Delgadillo Electronically Signed By: VICKI NIEVES MD
[2024-05-31 13:45] LABS: MANUAL DIFF FLAG NO
[2024-05-31 13:47] LABS: Basophils Percent Auto 0.4 % (0-2); Eosinophils Percent Auto 0.6 % (0-4); Hematocrit 45.4 % (42.0-52.0); Hemoglobin 14.7 g/dl (14.0-18.0); Imm Gran Abs Auto 0.02 X10*3/uL (0.00-0.03); Imm Gran Pct Auto 0.4 % (0.0-0.4); Lymphocytes Absolute Auto 1.2 X10*3/uL (1.2-4.9); Lymphocytes Percent Auto 23.3 % (20-40); Mean Corpuscular HGB Conc 32.4 g/dl (31.0-36.0); Mean Corpuscular Hemoglobin 27.6 pg (27.0-33.0); Mean Corpuscular Volume 85.3 fL (80.0-98.0); Mean Platelet Volume 9.8 fL (9.4-12.4); Monocytes Absolute Auto 0.3 X10*3/uL (0.1-1.2); Monocytes Percent Auto 4.9 % (2-11); Neutrophils Absolute Auto 3.7 x10*3/uL (2.0-8.3); Neutrophils Percent Auto 70.4 % (45-73); Platelet Count 176 X10*3/uL (160-400); Red Blood Count 5.32 X10*6/uL (4.60-5.80); Red Cell Distribution Width 13.2 % (11.0-16.0); White Blood Count 5.3 X10*3/uL (4.8-10.8)
[2024-05-31 14:04] LABS: Alanine Aminotransferase 75 U/L (0-40); Albumin Level 4.4 g/dL (3.5-5.0); Alkaline Phosphatase 96 U/L (39-117); Anion Gap 9 (12-20); Aspartate Amino Transferase 28 U/L (5-37); Bilirubin Direct 0.3 mg/dL (0.0-0.5); Blood Urea Nitrogen 20 mg/dL (9-16); Calcium 9.3 mg/dL (8.4-10.2); Carbon Dioxide 27 mmol/L (22-29); Chloride 109 mmol/L (96-108); Creatinine Clr Calc Pharmacy 73.7; Estimated Glomerular Filt Rate > 60; Glucose Random 102 mg/dL (60-115); Potassium 4.4 mmol/L (3.3-5.1); Sodium 141 mmol/L (135-145); Total Protein 7.8 g/dL (6.5-8.0)
[2024-05-31 14:05] LABS: Prothrombin Time 12.1 SEC (10.9-12.4)
[2024-05-31 14:08] LABS: Partial Thromboplastin Time 28.1 SEC (26.0-36.8)
[2024-05-31 14:12] LABS: Troponin-I High Sensitivity < 2.7 ng/L (<3.5-35.0)
[2024-05-31] MEDS: iohexoL 350 MG/ML 100 ML INFUS..BTL IV (14:52)
[2024-05-31 15:04] LABS: Influenza A PCR NEGATIVE (Negative); Influenza B PCR NEGATIVE (Negative); Resp Syncy Virus RNA Qual PCR NEGATIVE (Negative); SARS COV2 PCR INHOUSE NEGATIVE (Negative)
[2024-05-31] MEDS: levETIRAcetam 500 MG TABLET PO (15:10)
[2024-05-31] MEDS: Meclizine HCl 12.5 MG TABLET PO (15:54)
[2024-06-03 21:59] LABS: Levetiracetam Keppra 10.9 mcg/mL (6.0-46.0)
== END 2024-05-31 16:28 | disposition home or self-care (01) ==
PROVIDERS: Physician Assistant Medical; Emergency Provider Student in an Organized Health Care Education/Training Program; PCP Student in an Organized Health Care Education/Training Program
DX: R55 Syncope and collapse (principal); R42 Dizziness and giddiness; R07.89 Other chest pain; M79.602 Pain in left arm; Z79.899 Other long term (current) drug therapy; Z03.818 Encounter for observation for suspected exposure to other biological agents ruled out
CPT/HCPCS: 0241U; 36415; 70496; 70498; 72125; 80048; 80076; 80177; 83735; 84484; 85025; 85610; 85730; 93005; 99284; 99285; Q9967

== ENCOUNTER → 2024-05-31 13:32 | Outpatient (BNV) | payer OTHER, SELFPAY | PROVIDERS: Emergency Provider Student in an Organized Health Care Education/Training Program; PCP Student in an Organized Health Care Education/Training Program; Visit Provider Radiology Diagnostic Radiology | DX: R42 Dizziness and giddiness (principal); R55 Syncope and collapse | CPT/HCPCS: 70496; 70498; 72125 ==

== ENCOUNTER → 2024-05-31 13:32 | Outpatient (BNV) | payer OTHER, SELFPAY | PROVIDERS: Emergency Provider Student in an Organized Health Care Education/Training Program; PCP Student in an Organized Health Care Education/Training Program; Visit Provider Internal Medicine Cardiovascular Disease | DX: R42 Dizziness and giddiness (principal) | CPT/HCPCS: 93010 ==

== ENCOUNTER 2024-06-01 13:10 | Outpatient (AMB) | payer OTHER, SELFPAY ==
--- NOTE | 2024-06-01 13:22 | MHC.OFFVIS ---
Vital Signs 06/01/24 13:23 Height 5 ft 9 in Weight 196 lb 3.382 oz BMI 29.0 BP 100/68 Blood Pressure Location Lt brachial Position Sitting Pulse 58 Pulse Source Monitor Intake Visit Reasons: follow-up pre-op clearance Intake Note: f/up- pre-op clearance, with some SOB Lean Manufacturing Specialist Required: No Accompanied by: Self / Same As Patient Allergies No Known Allergies Allergy (Verified 05/31/24 13:27) Medication List - Last Reconciled 06/01/24 by Deni Herrera NP aspirin 81 mg PO QAM atorvastatin 80 mg PO BEDTIME famotidine 40 mg PO BEDTIME finasteride 5 mg PO DAILY 90 days fluoxetine 80 mg PO DAILY levetiracetam 500 mg PO BID linaclotide (Linzess) 290 mcg PO QAM tjayfpaprfgi-rbop-yaxdt acid 18-400 mg-mcg (Certavite-Antioxidant) tabs PO zdfqblntfiik-fqyy-npgie acid 18-400 mg-mcg (Certavite-Antioxidant) 1 tab PO QAM nitroglycerin 0 mg sublingual primidone 50 mg PO BEDTIME terazosin 5 mg PO BEDTIME 90 days topiramate XR 25 mg PO DAILY HPI Comments Details: This is a 63-year-old male presenting for preoperative follow-up. He has a history of coronary artery disease and reports intermittent episodes of chest pressure. Yesterday, the patient visited the emergency room due to a fainting episode related to his chronic vertigo. The patient states he continues to feel unwell, experiencing chest pain both with exertion and at rest, often accompanied by shortness of breath. Also reports waking up at night due to palpitations. With history of chronic vertigo, he can experiences dizziness most of the time and is on meclizine for this. He just feels fatigued all the time. [facility] Medical History CAD (coronary artery disease) Surgical History Hx of colonoscopy History of esophagogastroduodenoscopy (EGD) Family History Father Cancer Throat cancer Mother Cancer Sister FH: kidney cancer Breast cancer Social History Alcohol intake: never Patient Tobacco Use Status: Never used Tobacco Advance Directives Date on File: 02/25/21 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 Gender identity: Male Review of Systems Const Denies chills, Denies fatigue, Denies fever(s), Denies frequent falls, Denies weakness, Denies weight gain and Denies weight loss ENT Denies dizziness Card Denies chest pain, Denies leg edema, Reports lightheadedness, Denies palpitations, Reports dyspnea and Reports dyspnea on exertion Resp Denies cough, Reports dyspnea and Reports dyspnea on exertion GI Denies hematochezia Musc Denies abnormal gait, Denies muscle weakness, Denies numbness, Denies radiating pain into limb and Denies tingling Neuro Denies abnormal gait, Denies dizziness, Denies frequent falls, Denies numbness, Denies tingling and Denies weakness Endo Denies fatigue and Denies palpitations Physical Exam Vital Signs: Last Vital Signs Pulse 58 06/01/24 13:23 BP 100/68 06/01/24 13:23 BMI result Body Mass Index 29.0 Const General: cooperative, healthy appearing, comfortable and no acute distress Orientation/consciousness: patient oriented x3 HEENT Head: Yes normal to inspection Neck Neck: Yes normal visual inspection, Yes trachea midline and Yes supple Chest Chest palpation & inspection: normal inspection of the chest Resp Effort & Inspection: normal respiratory effort Auscultation: clear to auscultation bilaterally, no crackles, no rales, no rhonchi and no wheezes Cardio Jugular venous distension: no JVD Palpation: normal PMI Rate: regular rate Rhythm: regular rhythm Heart sounds: S1 normal heart sound present, S2 normal heart sound present, no click, no gallops, no murmurs and no rubs Peripheral pulses: Peripheral pulses 2+ throughout GI Inspection: Yes normal to inspection Palpation (GI): Soft to palpation Auscultation: normal bowel sounds Skin General skin exam: no rashes or lesions noted Neuro General: patient oriented x3 Extrem General: Yes normal to inspection, No no pedal edema and No calf tenderness Psych Appearance: grossly normal Mental Status: mental status grossly normal Speech and movement: Normal speech and movement present Office Procedures EKG Details: EKG today showed underlying sinus Arslan at 58 beats per minute, nonspecific T-wave changes, normal [place], [place]. [id number], Complete Assessment & Plan Assessment & Plan (1) Syncope: Code(s): R55 - Syncope and collapse Category: Medical (2) CAD (coronary artery disease): Comment: Nonobstructive proximal LAD disease at 30% with diagonal branch small vessel at 70% Code(s): I25.10 - Atherosclerotic heart disease of [place] coronary artery without angina pectoris Category: Medical (3) Palpitations: Code(s): R00.2 - Palpitations Category: Medical (4) Atypical chest pain: Code(s): R07.89 - Other chest pain (5) Preop cardiovascular exam: Code(s): Z01.810 - Encounter for preprocedural cardiovascular examination Category: Medical Plan 04/10/2024- myocardial perfusion imaging showed fixed mid anterior defect, possible defect in the inferior wall. Given the patient's ongoing chest pain, history of coronary artery disease, and an inconclusive stress test, we will proceed with a cardiac CTA to further assess for any ischemic changes. Due to patient's reported palpitations, we will get a Holter monitor to assess for any potential severe arrhythmias. Continue high-dose statin therapy and aspirin therapy. His most recent LDL within goal. His blood pressure today is well-controlled. We will determine the risk for colonoscopy based on the results. Further management and treatment based on the findings of these tests. Advised patient to seek ER care in case of exertional chest pain not result with rest, shortness of breath, palpitations, dizziness, presyncope, or syncope. Patient will follow-up with the completion of this test. In the interim, patient will call us with any concerns. This note was generated using voice recognition software. While every effort has been made to ensure accuracy and proper carpenter mold, there may be occasional errors that could affect the content or meaning of the described symptoms. Orders: Orders ECG 7 day holter monitor Today R00.2 - Palpitations CT Cardiac Coronary Angio Today I25.10 - Atherosclerotic heart disease of [place] coronary artery without angina pectoris Basic Metabolic Panel Today I25.10 - Atherosclerotic heart disease of [place] coronary artery without angina pectoris AMB EKG-In Office Today Z01.810 - Encounter for preprocedural cardiovascular examination Coding Level of Care Code Est Pt Level 4 (69949) Diagnoses Syncope R55 CAD (coronary artery disease) I25.10 Palpitations R00.2 Atypical chest pain R07.89 Preop cardiovascular exam Z01.810 CPT Codes EKG - CPT: [id number], Complete ([id number]) Time Spent (min) 31 Comment Time spent in reviewing the chart, test results, assessment, counseling and documentation.
[2024-06-01 13:23] VITALS: BP 100/68; PULSE 58; BMI 29.0
== END 2024-06-01 14:16 | disposition home or self-care (01) ==
PROVIDERS: PCP Student in an Organized Health Care Education/Training Program
DX: R55 Syncope and collapse (principal); I25.10 Atherosclerotic heart disease of native coronary artery without angina pectoris; R00.2 Palpitations; R07.89 Other chest pain; Z01.810 Encounter for preprocedural cardiovascular examination
CPT/HCPCS: 93010; 99214

== ENCOUNTER → 2024-06-01 13:10 | Outpatient (BNVA) | payer OTHER, SELFPAY | PROVIDERS: PCP Student in an Organized Health Care Education/Training Program | DX: Z01.810 Encounter for preprocedural cardiovascular examination (principal); I25.10 Atherosclerotic heart disease of native coronary artery without angina pectoris; R55 Syncope and collapse; R00.2 Palpitations; R07.89 Other chest pain | CPT/HCPCS: 93005; 99212 ==

== ENCOUNTER → 2024-06-06 12:40 | Outpatient (REF) | payer OTHER, SELFPAY ==
--- OUTSIDE RECORDS SUMMARY | 2024-06-06 14:26 | XMS_ITS | Encounter Summary ---
Author Organization [employer] Address [address] [facility] 7t [place] [address] Care Team Providers Care Rn Clinical Appeals Name Role Phone Lorenza HodgeP Primary Care Provider [phone]- [phone] Sherri Selby MD Primary Care Pro vider Reason for Visit * Reason Onset Date Comments triage 06/11/2022 Encounter Details Date Type Department Care Team (Late st Contact Info) Description 06/11/2022 Telephone [facility] MEDICINE [address] [place] [id number] Lorenza Hodge FNP [address] [place] [address] Dept [place] [address] triage Social History Tobacco Use Types Packs/Day Years Used Date Smoking Tobacco: Never Assessed Sex and Gender Information Value Date Recorded Sex Assigned at Male 03/15/2022 10:14 AM EDT Legal Sex Male 10:14 AM EDT Gender Identity Male 03/15/2022 10:14 AM EDT Sexual Orientation Straight 03/15/2022 10 :14 AM EDT COVID-19 Exposure Response Date Recorded In the last 10 days, have yo u been in contact with someone who was confirmed or suspected to have Coronavirus/COVID-19? No / Unsure 06/14/2022 1:04 PM EST documented as of this encounter Miscellaneous Notes * Telephone Encounter - Susanna Singh - 06/11/2022 2:33 PM EST Tc from pt returning call back from message below. Pt states that when he picked up the call, the phone hung up. * Telephone Encounter - Ramona Campa RN - 06/11/2022 2:27 PM EST Called pt. No answer. Left message on pt. Voice mail to call back [facility] nurses at [phone] or if emergent care needed to go to ED. RE: Abdominal pain and blood in stool. * Telephone Encounter - Ernestine Orlando - 06/11/2022 1:51 PM EST Symptom: Abdominal Pain and blood mixed in stool - Male Outcome: Schedule an urgent appointment (within 4 hours) or talk to a nurse or provider soon Reason: Getting worse The caller accepted this outcome documented in this encounter Plan of Treatment Upcoming Encounters Date Type Department Care Team (Late st Contact Info) Description 06/08/2024 2:00 PM EST Nurse Only [facility] MED[facility]INE [address] [place] [phone] documented as of this encounter Visit Diagnoses Not on filedocumented in this encounter Care Teams Rn Clinical Appeals Relationship Specialty Start Date End Date Lorenza Hodge FNP PCP - General Family Medicine 04/05/22 02/01/23 Sherri Selby MD [address] [place] [id number] PCP - General Internal Medicine 02/02/23 documented as of this encounter
--- OUTSIDE RECORDS SUMMARY | 2024-06-06 14:26 | XMS_ITS | Encounter Summary ---
Author Organization [employer] Address [address] [facility] 7 [place] [address] Care Team Providers Care Second Operator Name Role Phone Sherri Selby MD Primary Care Pro vider Reason for Visit * Reason Onset Date Comments Durable Medical Equipment 05/31/2024 Encounter Details Date Type Department Care Team (Late st Contact Info) Description 05/31/2024 Telephone [facility] MEDICINE [address] [place], [place] [phone] Sherri Selby MD [address] [place], [place] [phone] Durable Medical Equipment Social History Tobacco Use Types Packs/Day Years Used Date Smoking Tobacco: Never Passive Smoke Exposure: Never Smokeless Tobacco: Never Alcohol Use Standard Drinks/Week Comments Never 0 (1 standard drink = 0.6 oz pur e alcohol) Depression Answer Date Recorded Patient Health Questionnaire-9 Score 12 03/28/2024 Patient Health Questionnaire-9 Score 12 03/28/2024 Last PHQ-9: Questionnaire Data Not on file 1 05/28/2023 Housing Stability Answer Date Recorded What is your housing situation today? I have bronwyn arango 10/11/[address] you li ve. Do you have problems with any of the following? None of the above 10/11/2023 Food Insecurity Answer Date Recorded Within the past 12 months, y ou worried that your food would run out before you got money to buy more: Often true 10/11/2023 Within the past 12 months,th e food you bought just didn't last and you didn't have enough money to get more: Often true Transportation Answer Date Recorded In the past 12 months, has l ack of transportation kept you from medical appts, meetings, work or from getting things needed for daily living? No 10/11/2023 Utilities Answer Date Recorded In the past 12 months, has t he electric, gas, oil or water company threatened to shut off services in your home? No 10/11/2023 Depression Answer Date Recorded Patient Health Questionnaire-2 Score 3 03/28/2024 Sex and Gender Information Value Date Recorded Sex Assigned at Male 03/15/2022 10:14 AM EDT Legal Sex Male 10:14 AM EDT Gender Identity Male 03/15/2022 10:14 AM EDT Sexual Orientation Straight 03/15/2022 10 :14 AM EDT documented as of this encounter Miscellaneous Notes * Telephone Encounter - Erika Truong - 06/05/2024 12:58 PM EST DME RX for cane generated and placed on providers desk for signature. * Telephone Encounter - Erika Truong - 05/31/2024 8:24 AM EST Please see below. Patients rn homecare is requesting the following DME on the patients behalf.Please review and advise request and if approved please send message to [place] to generate RX. Thank you * Telephone Encounter - Erika Truong - 05/31/2024 8:23 AM EST ----- Message from Lani Figueroa sent at 05/30/2024 4:40 PM EST ----- Regarding: Script Requests Contact: Kiley, I am (Councilman Lani Villeda), Councilman for [facility] Care Management, requesting the following DME???s on behalf of patient. DME Item: Cane Supportive DX: R53.1, R42, R25.1 If you should have any inquiries regarding this request, feel free to contact the Councilman below. Councilman: Lani Villeda E-mail: [email or web address] Lawn Sprinkler Servicer: Covering Lawn Sprinkler Servicer Tala Moses Phone: E-mail: [email or web address] Thanks in advance for your assistance with this request. Sincerely, [facility] Care Management documented in this encounter Plan of Treatment Upcoming Encounters Date Type Department Care Team (Late st Contact Info) Description 06/08/2024 2:00 PM EST Nurse Only [facility] [address] [place] [address] documented as of this encounter Visit Diagnoses Not on filedocumented in this encounter Additional Health Concerns Assessment Noted Time PHQ-9 Depression Total Score: 12 024 3:28 PM EST documented as of this encounter Care Teams Second Operator Relationship Specialty Start Date End Date Sherri Selby MD [address] [place] [address] PCP - General Internal Medicine 02/02/23 documented as of this encounter
--- OUTSIDE RECORDS SUMMARY | 2024-06-06 14:26 | XMS_ITS | Encounter Summary ---
Author Organization [employer] [facility] Address [address] [place] [address] 7 [place] [address] Care Team Providers Care Rubbing Bed Operator Name Role Phone Funmi Easton MD Primary Care Provider Lorenza Stroud Primary Care Provider [phone]- [phone] Sherri Selby MD Primary Care Pro vider Encounter Details Date Type Department Care Team (Latest Contact Info) Description 12/24/2021 Abstract [facility] CONVERSIONS Dental, Provider, DDS Social History Tobacco Use Types Packs/Day Years Used Date Smoking Tobacco: Never Assessed Sex and Gender Information Value Date Recorded Sex Assigned at Male 03/15/2022 10:14 AM EDT Legal Sex Male 10:14 AM EDT Gender Identity Male 03/15/2022 10:14 AM EDT Sexual Orientation Straight 03/15/2022 10 :14 AM EDT documented as of this encounter Plan of Treatment Upcoming Encounters Date Type Department Care Team (Late st Contact Info) Description 06/08/2024 2:00 PM EST Nurse Only [facility] MEDICINE [address] [place] [address] documented as of this encounter Visit Diagnoses Not on filedocumented in this encounter Care Teams Rubbing Bed Operator Relationship Specialty Start Date End Date Funmi Easton MD PCP - General Family Medicine 03/20/19 04/04/22 Lorenza Hodge FNP PCP - General Family Medicine 04/05/22 02/01/23 Sherri Selby MD [address] [place] [id number] PCP - General Internal Medicine 02/02/23 documented as of this encounter
--- OUTSIDE RECORDS SUMMARY | 2024-06-06 14:26 | XMS_ITS | Encounter Summary ---
Author Organization [employer] Address [address] [facility] [address] [place] [address] Care Team Providers Care Information Systems Professor Name Role Phone Sherri Selby MD Primary Care Pro vider Reason for Visit * Reason Onset Date Comments ER Follow-up 06/06/2024 Encounter Details Date Type Department Care Team ([facility] st Contact Info) Description 06/06/2024 Telephone [facility] MEDICINE [address] [place], [place] [phone] Christine Moses, RN [address] [place], [place] [phone] ER Follow-up Social History Tobacco Use Types Packs/Day Years [...] encounter Miscellaneous Notes * Telephone Encounter - Christine Moses RN - 06/06/2024 10:39 AM EST Telephone call placed to pt for ED status check. He reports is feeling better. Last was dizzy and nauseous and then LOC so went to the ED. Reports that he is scheduled to see the sewing machine adjuster today to do cardiac CTA. Is feeling better today. No nausea today. Reports dizziness is ongoing. He went to the ED because of the LOC which his sewing machine adjuster believe may be cardiac related. Pt on recall to see PCP will send message to [facility] to add him to list to be seen soonest. Pt aware. Pt given ED precautions and advised to call sooner as needed. Encouraged to keep appts with cards. Pt verbalizedunderstanding and denied having any further questions or concerns at this time. * Telephone Encounter - Christine Moses RN - 06/06/2024 10:34 AM EST ----- Message from Maria Guadalupe Castano sent at 06/05/2024 3:24 PM EST ----- [place] at [facility] 05/[place]/24 showed approximate 20% stenosis in right prox ICA and 30% in left prox ICA. Pt on high intensity statin and ASA. Please outreach pt to ED f/u status check s/p visit for dizziness. Labs at ED generally wnl, ALT (a liver test) was elevated, please encourage pt to stop/drink lessetoh if he drinks. Please check that pt has recall for PCP in August/September for atherosclerosis. Thanks. documented in this encounter Plan of Treatment Upcoming Encounters Date Type Department Care Team (Late st Contact Info) Description 06/08/2024 2:00 PM EST Nurse Only [facility] MED[facility]INE [address] [place] [address] documented as of this encounter Visit Diagnoses Not on filedocumented in this encounter Additional Health Concerns Assessment Noted Time PHQ-9 Depression Total Score: 12 024 3:28 PM EST documented as of this encounter Care Teams Information Systems Professor Relationship Specialty Start Date End Date Sherri Selby MD [address] [place] [address] PCP - General Internal Medicine 02/02/23 documented as of this encounter
--- OUTSIDE RECORDS SUMMARY | 2024-06-06 14:26 | XMS_ITS | Encounter Summary ---
Author Organization [employer] Address [address] [facility] 7 [place] [address] Care Team Providers Care Gas Adjuster Name Role Phone Sherri Selby MD Primary Care Pro vider Reason for Visit * Reason Onset Date Comments Results 05/05/2023 Encounter Details Date Type Department Care Team ([facility] st Contact Info) Description 05/05/2023 Telephone [facility] MEDICINE [address] [place], [place] [phone] Sherri Selby MD [address] [place] [address] Results Social History Tobacco Use Types Packs/Day Years Used Date Smoking Tobacco: Never Smokeless Tobacco: Never Alcohol Use Standard Drinks/Week Comments Never 0 (1 standard drink = 0.6 oz pur e alcohol) Depression Answer Date Recorded Patient Health Questionnaire-9 Score 16 08/10/2022 Housing Stability Answer Date Recorded What is your housing situation today? I have bronwyn arango 03/09/[address] you li ve. Do you have problems with any of the following? None of the above 03/09/2023 Food Insecurity Answer Date Recorded Within the past 12 months, y ou worried that your food would run out before you got money to buy more: Sometimes True 2022 Within the past 12 months,th e food you bought just didn't last and you didn't have enough money to get more: Sometimes True 03/09/2023 Transportation Answer Date Recorded In the past 12 months, has l ack of transportation kept you from medical appts, meetings, work or from getting things needed for daily living? No 03/09/2023 Utilities Answer Date Recorded In the past 12 months, has t he electric, gas, oil or water company threatened to shut off services in your home? No 03/09/2023 Depression Answer Date Recorded Patient Health Questionnaire-2 Score 4 08/10/2022 Sex and Gender Information Value Date Recorded Sex Assigned at Male 03/15/2022 10:14 AM EDT Legal Sex Male 10:14 AM EDT Gender Identity Male 03/15/2022 10:14 AM EDT Sexual Orientation Straight 03/15/2022 10 :14 AM EDT documented as of this encounter Miscellaneous Notes * Telephone Encounter - Linda Stiven - 05/05/2023 11:06 AM EST Tc from pt requesting MRI results of spine. Please contact pt at [phone] documented in this encounter Plan of Treatment Upcoming Encounters Date Type Department Care Team (Late st Contact Info) Description 06/08/2024 2:00 PM EST Nurse Only [facility] MEDICINE [address] [place] [address] documented as of this encounter Visit Diagnoses Not on filedocumented in this encounter Additional Health Concerns Assessment Noted Time PHQ-9 Depression Total Score: 16 023 9:09 AM EDT documented as of this encounter Care Teams Gas Adjuster Relationship Specialty Start Date End Date Sherri Selby MD [address] [place] [address] PCP - General Internal Medicine 02/02/23 documented as of this encounter
--- OUTSIDE RECORDS SUMMARY | 2024-06-06 14:26 | XMS_ITS | Encounter Summary ---
Author Organization [facility] Address [address] 7 [place] [address] Care Team Providers Care Sas Programmer Name Role Phone Lorenza Hodge [facility] Primary Care Provider [phone] Sherri Selby MD Primary Care Pro vider Encounter Details Date Type Department Care Team (Late st Contact Info) Description 11/25/2022 Orders Only [facility] [address] [place] [id number] Lorenza Hodge [address] Dept [place] [address] Social History Tobacco Use Types Packs/Day Years Used Date Smoking Tobacco: Never Smokeless Tobacco: Never Alcohol Use Standard Drinks/Week Comments Never 0 (1 standard drink = 0.6 oz pur e alcohol) Depression Answer Date Recorded Patient Health Questionnaire-9 Score 16 08/10/2022 Depression Answer Date Recorded Patient Health Questionnaire-2 [...] Description 06/08/2024 2:00 PM EST Nurse Only [facility] [address] [place] [id number] documented as of this encounter Procedures Procedure Name Priority Date/Time Associated Diagnosis Comments US RENAL BI Routine 12/06/2022 1:54 PM EDT documented in this encounter Results * US RENAL BI (12/06/2022 1:54 PM EDT) Anatomical Region Laterality Modality Abdomen Ultrasound 12/06/2022 1:54 PM EDT Narrative 12/09/2022 6:44 PM EDT ? [facility] ?[address] ?[place] [address] ? Ultrasound Report ? Signed ? Patient: Inderjit Stoner ?MR ?? #: [id number] ? : 1960 ?Acct:[id number] ? Age/Sex: 62 / M ?ADM Date: 12/06/22 ? Loc: HO.US ? Attending Dr: Lorenza Hodge KNOTTER HAND ? Ordering Physician: Lorenza Hodge KNOTTER HAND ?? Date of Service: 12/06/22 ?? Procedure(s): US renal BI ?? Accession Number(s): [id number] ? cc: Lorenza Hodge [employer] ? EXAMINATION: ?? US RETROPERITONEAL LIMITED (RENAL ONLY) ? CLINICAL INFORMATION: ?? Flank pain. ? COMPARISON: ?? Abdominal ultrasound 09/15/2022. ? TECHNIQUE: ?? Real-time imaging of the kidneys. ? FINDINGS: ? RIGHT KIDNEY: 10.5 x 4.6 x 4.4 cm (SAG x AP x TRV). The kidney is ?? normal in size, contour, and echogenicity. Renal cortical thickness is ?? normal. No calculi or focal parenchymal lesions. No hydronephrosis. ? LEFT KIDNEY: 11.7 x 5.5 x 4.4 cm (SAG x AP x TRV). The kidney is normal ?? in size, contour, and echogenicity. Renal cortical thickness is normal. ?? No calculi or focal parenchymal lesions. No hydronephrosis. ?? Hypertrophied column of Charan. ? US/US renal BI ?? IMPRESSION: ?? No hydronephrosis or nephrolithiasis. ? Dictated By: ?Radha Ceballos MD ? Signed By: ?<Electronically signed by Radha Ceballos MD in OV> ?12/09/ 1841 ? DD/DT: 12/06/ 1354 ? TD/TT: ? Reports Analyst: ? Procedure Note Donotuseinterpreter, Image - 12/09/[address] [address] Ultrasound Report Signed Patient: Inderjit Stoner [facility] #: [id number] : 1Acct:[id number] Age/Sex: 62 / MADM Date: 12/06/22 Loc: HO.US Attending Dr: Lorenza OCONNELL Ordering Physician: Lorenza Hodge Date of Service: 12/06/22 Procedure(s): US renal BI Accession Number(s): [id number] cc: Lorenza Hodge EXAMINATION: US RETROPERITONEAL LIMITED (RENAL ONLY) CLINICAL INFORMATION: Flank pain. COMPARISON: Abdominal ultrasound 09/15/2022. TECHNIQUE: Real-time imaging of the kidneys. FINDINGS: RIGHT KIDNEY: 10.5 x 4.6 x 4.4 cm (SAG x AP x TRV). The kidney is normal in size, contour, and echogenicity. Renal cortical thickness is normal. No calculi or focal parenchymal lesions. No hydronephrosis. LEFT KIDNEY: 11.7 x 5.5 x 4.4 cm (SAG x AP x TRV). The kidney is normal in size, contour, and echogenicity. Renal cortical thickness is normal. No calculi or focal parenchymal lesions. No hydronephrosis. Hypertrophied column of Charan. US/US renal BI IMPRESSION: No hydronephrosis or nephrolithiasis. Dictated By: Radha Ceballos MD Signed By: <Electronically signed by Radha Ceballos MD in OV> 12/09/22 1841 DD/ 1354 TD/TT: Reports Analyst: Lorenza Hodge [employer] [employer] IMG US PROCEDURES Edited R esult - Final documented in this encounter Visit Diagnoses Not on filedocumented in this encounter Additional Health Concerns Assessment Noted Time PHQ-9 Depression Total Score: 16 08/10/2 023 9:09 AM EDT documented as of this encounter Care Teams Sas Programmer Relationship Specialty Start Date End Date Lorenza Hodge FNP PCP - General Family Medicine 04/05/22 02/01/23 Sherri Selby MD [address] [place] [id number] PCP - General Internal Medicine 02/02/23 documented as of this encounter
--- OUTSIDE RECORDS SUMMARY | 2024-06-06 14:26 | XMS_ITS | Clinical Summary ---
Author Organization [facility] Address [address] [place] [address] Phone Care Team Providers Care Dry Plasterer Name Role Phone Unavailable Primary Care Provider Unavailabl e Social History Tobacco Use Types Packs/Day Years Used Date Smoking Tobacco: Never Assessed Sex and Gender Information Value Date Recorded Sex Assigned at Not on file Gender Identity Not on file Sexual Orientation Not on file Plan of Treatment Health Maintenance Due Date Last Done Comments DTaP,Tdap,and Td Vaccines (1 - Tdap) 1979 Zoster Vaccines (1 of 2) 2010 Cholesterol Screening (Lipid Panel) 04/18/2022 Colorectal Cancer Screening: Colonoscopy 04/18/2022 Depression Screening 04/18/2022 HIV Screening 04/18/2022 Hepatitis C Screening 04/18/2022 Social Influencers of Health Screening 04/18/2022 COVID-19 Vaccine ( - 2023-2 5 season) 2024 Influenza Vaccine (#1) 2024 RSV Immunization Patients 60 + Years Old (1 - 1-dose 75+ series) 2035 HIB Vaccines Aged Out No longer eligi ble based on patient's age to complete this topic HPV Vaccines Aged Out No longer eligi ble based on patient's age to complete this topic Hepatitis A Vaccines Aged Out No long er eligible based on patient's age to complete this topic Hepatitis B Vaccines Aged Out No long er eligible based on patient's age to complete this topic IPV Vaccines Aged Out No longer eligi ble based on patient's age to complete this topic MMR Vaccines Aged Out No longer eligi ble based on patient's age to complete this topic Meningococcal ACWY Vaccine Aged Out N o longer eligible based on patient's age to complete this topic Pneumococcal Vaccine: Pediat rics (0 to 5 Years) and At-Risk Patients (6 to 64 Years) Aged Out No longer eligible b ased on patient's age to complete this topic RSV Immunization Patients Un lisha 20 months Aged Out No longer eligible b ased on patient's age to complete this topic Varicella Vaccines Aged Out No longer eligible based on patient's age to complete this topic
--- OUTSIDE RECORDS SUMMARY | 2024-06-06 14:26 | XMS_ITS | Encounter Summary ---
Author Organization [employer] Address 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 Name Role Phone Sherri Selby MD Primary Care Pro vider Encounter Details Date Type Department Care Team (Late st Contact Info) Description 05/31/2024 Orders Only GENERIC EXTERNAL DATA DEPARTMENT Provider, Generic External Data Social History Tobacco Use Types Packs/Day Years [...] as of this encounter Miscellaneous Notes * Result Encounter Note - GARY Daily - 05/31/2024 1:48 PM EST CTA at [facility] – [...] Description 06/08/2024 2:00 PM EST Nurse Only [facility] [address] [place] [phone] documented as of this encounter Procedures Procedure Name Priority Date/Time Associated Diagnosis Comments CT CERVICAL SPINE WO CONTRAST Routine 05/31/2024 2:39 PM EST CTA HEAD NECK W AND WO CONTRAST Routine 05/31/2024 2:39 PM EST SARS COV2/INFLUENZA A/B AND RSV RNA QL NAAT Routine 05/31/2024 1:49 PM EST HIGH SENSITIVITY TROPONIN I Routine 05/31/2024 1:41 PM EST CBC WITH AUTO DIFFERENTIAL Routine 05/31/2024 1:41 PM EST LEVETIRACETAM Routine 05/31/2024 1:41 PM EST APTT Routine 05/31/2024 1:41 PM EST PROTHROMBIN TIME-INR Routine 05/31/2024 1:41 PM EST MAGNESIUM Routine 05/31/2024 1:41 PM EST HEPATIC FUNCTION PANEL Routine 1:41 PM EST BASIC METABOLIC PANEL Routine 05/31/2024 1:41 PM EST documented in this encounter Results * CTA Head Neck w/ and w/o Contrast (05/31/2024 2:39 PM EST) Anatomical Region Laterality Modality Head, Neck Computed Tomogra phy 05/31/2024 2:39 PM EST Narrative 05/31/2024 4:04 PM EST ? [facility] ?[address] ?[place] [address] ? CT Scan Report ? Signed ? Patient: Inderjit Stoner ?MR ?? #: [id number] ? : 1960 ?Acct:[id number] ? Age/Sex: 63 / M ?ADM Date: 05/31/24 ? Loc: HO.ED ? Attending Dr: ? Ordering Physician: Tala Delgadillo ?? Date of Service: 05/31/24 ?? Procedure(s): CT angio head neck ?? Accession Number(s): [id number] ? cc: Tala Delgadillo; Sherri Selby MD ? Report Number: ?? [id number]: Total DLP = 2963.00 mGy-cm ?? EXAMINATION: ?? CT ANGIOGRAM HEAD AND NECK ? CLINICAL INFORMATION: ?? Dizziness. ? COMPARISON: ?? Noncontrast head CT 02/14/2024. No prior angiography. ? TECHNIQUE: ?? Noncontrast axial imaging of the head was performed. This was followed ?? by test bolus sequences and head and neck intravenous bolus ?? administration 70 mL of Omnipaque 350 iodinated contrast. Helical ?? imaging was performed in the axial plane from the aortic arch to the ?? skull vertex. A [address] head was also obtained. The data was ?? processed at the echocardiography radiology technologist's workstation for generation of MIP ?? sequences. Angled MIPs and volume rendered reformatted images were also ?? generated at an offline 3D workstation. Stenoses are assessed in ?? accordance with NASCET criteria unless otherwise indicated. ? This CT examination was performed using dose optimization techniques as ?? appropriate, variously including the following: ?? *Automated exposure control ?? *Adjustment of mA and/or kV according to patient size (this includes ?? techniques or standardized protocols for targeted exams where dose is ?? matched to indication/reason for exam; i.e. extremities or head) ?? *Use of iterative reconstruction technique ? FINDINGS: ? NONCONTRAST HEAD CT: ?? There is no evidence of intracranial hemorrhage or extra-axial fluid ?? collection. ?? There is no mass effect, or edema. No CT evidence of acute territorial ?? infarct. ?? Ventricles, sulci, and cisterns are normal in size and configuration ?? for patient age. No hydrocephalus. No midline shift. ?? Negative hyperdense MCA sign is negative insular ribbon sign. ?? No significant white matter abnormalities. ? Globes and orbital contents image normally. ?? No extracranial soft tissue abnormalities. ? The paranasal sinuses, mastoid air cells, and tympanic cavities are ?? normally aerated. ?? No suspicious bony abnormalities. ? NECK CTA: ?? -AORTIC ARCH: Normal in caliber. ?? -GREAT VESSEL ORIGINS: 3 vessel branching pattern. Origins widely ?? patent. ? -RIGHT COMMON CAROTID ARTERY: Normal in caliber and course to the level ?? of the bifurcation. ?? -CERVICAL RIGHT INTERNAL CAROTID ARTERY: Mild to moderate calcific and ?? soft plaque in the carotid bulb with an approximate 20% stenosis ?? evident. Remainder of the vessel is normal in course and caliber into ?? the skull base. ? -LEFT COMMON CAROTID ARTERY: ?? -CERVICAL LEFT INTERNAL CAROTID ARTERY: Moderate calcific plaque at the ?? carotid bulb and origin of the left ICA, resulting in an approximate ?? 30% stenosis. Remainder muscle is normal in course and caliber into the ?? skull base. ? -CERVICAL RIGHT VERTEBRAL ARTERY: Patent origin, and normal in course ?? and caliber throughout into the skull base. No stenosis or dissection. ?? Codominant. ?? -CERVICAL LEFT VERTEBRAL ARTERY: Patent origin, and normal in course ?? and caliber throughout into the skull base. No stenosis or dissection. ?? Codominant. ? OTHER, SOFT TISSUES: ?? -No masses or lymphadenopathy. ?? -Mildly heterogeneous appearing thyroid gland without dominant nodule ?? by CT. ?? -No retropharyngeal abnormality. ?? -Imaged lung apices are clear aside from mild dependent atelectasis. ?? -Imaged superior mediastinal contents appear normal. ? OSSEOUS STRUCTURES: ?? -No suspicious lesions. Normal-appearing cervical spine. ? CTA OF THE BRAIN: ? -INTRACRANIAL INTERNAL CAROTID ARTERIES: Mild calcification of the ?? carotid siphons without stenosis. No aneurysm. Normal carotid termini. ? -RIGHT ANTERIOR CEREBRAL ARTERY: Normal A1 segment. Normal arborization ?? of the distal segments. ?? -LEFT ANTERIOR CEREBRAL ARTERY: Normal A1 segment. Normal arborization ?? of the distal segments. ?? -ANTERIOR COMMUNICATING ARTERY: Normal. ? -RIGHT MIDDLE CEREBRAL ARTERY: Normal M1 segment of the MCA without ?? focal stenosis or occlusion. Normal arborization of the distal segments. ?? -LEFT MIDDLE CEREBRAL ARTERY: Normal M1 segment of the MCA without ?? focal stenosis or occlusion. Normal arborization of the distal segments. ? -RIGHT VERTEBRAL ARTERY V4: Normal in course and caliber. Normal PICA ?? branch. ?? -LEFT VERTEBRAL ARTERY V4: Normal in course and caliber. Normal PICA ?? branch. ?? -BASILAR ARTERY: Both Vertebrals join to form the basilar. Basilar ?? artery is normal without focal stenosis or occlusion. Normal appearance ?? of the proximal superior cerebellar arteries. Normal basilar tip. ? -RIGHT POSTERIOR CEREBRAL ARTERY: The P1 segment is diminutive. ?? origin of the COMPUTER ANIMATOR with robust opacification of the posterior ?? communicating artery. Normal opacification of the distal COMPUTER ANIMATOR segments. ?? -LEFT POSTERIOR CEREBRAL ARTERY: Normal P1 segment. Normal ?? opacification of the distal COMPUTER ANIMATOR segments. ?? -POSTERIOR COMMUNICATING ARTERIES: Left is not well seen. Right patent. ? -MIPPED reformats demonstrate no regions of oligemia within the ?? supratentorial or infratentorial brain. ? Normal opacification of the superior sagittal, straight, transverse, ?? and sigmoid sinuses. No venous thrombosis. ? CT/CT angio head neck ?? IMPRESSION: ?? 1. Noncontrast head CT demonstrating no evidence of intracranial ?? hemorrhage, mass effect, or acute territorial infarct. ?? 2. CT angiogram of the head and neck showing no evidence of significant ?? vascular stenosis, occlusion, aneurysm, or dissection. ?? 3. Mild to moderate soft and calcific atheromatous plaque right carotid ?? bulb and proximal ICA results in approximate 20% stenosis. ?? 4. Mild to moderate predominantly calcific plaque left carotid bulb and ?? proximal ICA results in approximate 30% stenosis. ?? 5. See the body the report for additional ancillary findings. ? Electronically signed by: ??Osmin Lainez MD ??05/31/2024 04:01 PM EST RP ? Dictated By: ?Osmin Lainez MD ? Signed By: ?<Electronically signed by Osmin Lainez MD in OV> ?05/31/24 1601 ? DD/ 1439 ? TD/TT: 05/31/24 1515 ? Director Of Career Services: ? Procedure Note Brooke, Diamante - 05/31/[address] [place] [address] [address] Scan Report Signed Patient: Inderjit Stoner [facility] #: [id number] : 1960cct:[id number] Age/Sex: 63 / MADM Date: 05/31/24 Loc: HO.ED Attending Dr: Ordering Physician: Tala Delgadillo Date of Service: 05/31/24 Procedure(s): CT angio head neck Accession Number(s): [id number] cc: Tala Delgadillo; Sherri Selby MD Report Number: [id number]: Total DLP = 2963.00 mGy-cm EXAMINATION: CT ANGIOGRAM HEAD AND NECK CLINICAL INFORMATION: Dizziness. COMPARISON: Noncontrast head CT 02/14/2024. No prior angiography. TECHNIQUE: Noncontrast axial imaging of the head was performed. This was followed by test bolus sequences and head and neck intravenous bolus administration 70 mL of Omnipaque 350 iodinated contrast. Helical imaging was performed in the axial plane from the aortic arch to the skull vertex. A [address] head was also obtained. The data was processed at the echocardiography radiology technologist's workstation for generation of MIP sequences. Angled MIPs and volume rendered reformatted images were also generated at an offline 3D workstation. Stenoses are assessed in accordance with NASCET criteria unless otherwise indicated. This CT examination was performed using dose optimization techniques as appropriate, variously including the following: *Automated exposure control *Adjustment of mA and/or kV according to patient size (this includes techniques or standardized protocols for targeted exams where dose is matched to indication/reason for exam; i.e. extremities or head) *Use of iterative reconstruction technique FINDINGS: NONCONTRAST HEAD CT: There is no evidence of intracranial hemorrhage or extra-axial fluid collection. There is no mass effect, or edema. No CT evidence of acute territorial infarct. Ventricles, sulci, and cisterns are normal in size and configuration for patient age. No hydrocephalus. No midline shift. Negative hyperdense MCA sign is negative insular ribbon sign. No significant white matter abnormalities. Globes and orbital contents image normally. No extracranial soft tissue abnormalities. The paranasal sinuses, mastoid air cells, and tympanic cavities are normally aerated. No suspicious bony abnormalities. NECK CTA: -AORTIC ARCH: Normal in caliber. -GREAT VESSEL ORIGINS: 3 vessel branching pattern. Origins widely patent. -RIGHT COMMON CAROTID ARTERY: Normal in caliber and course to the level of the bifurcation. -CERVICAL RIGHT INTERNAL CAROTID ARTERY: Mild to moderate calcific and soft plaque in the carotid bulb with an approximate 20% stenosis evident. Remainder of the vessel is normal in course and caliber into the skull base. -LEFT COMMON CAROTID ARTERY: -CERVICAL LEFT INTERNAL CAROTID ARTERY: Moderate calcific plaque at the carotid bulb and origin of the left ICA, resulting in an approximate 30% stenosis. Remainder muscle is normal in course and caliber into the skull base. -CERVICAL RIGHT VERTEBRAL ARTERY: Patent origin, and normal in course and caliber throughout into the skull base. No stenosis or dissection. Codominant. -CERVICAL LEFT VERTEBRAL ARTERY: Patent origin, and normal in course and caliber throughout into the skull base. No stenosis or dissection. Codominant. OTHER, SOFT TISSUES: -No masses or lymphadenopathy. -Mildly heterogeneous appearing thyroid gland without dominant nodule by CT. -No retropharyngeal abnormality. -Imaged lung apices are clear aside from mild dependent atelectasis. -Imaged superior mediastinal contents appear normal. OSSEOUS STRUCTURES: -No suspicious lesions. Normal-appearing cervical spine. CTA OF THE BRAIN: -INTRACRANIAL INTERNAL CAROTID ARTERIES: Mild calcification of the carotid siphons without stenosis. No aneurysm. Normal carotid termini. -RIGHT ANTERIOR CEREBRAL ARTERY: Normal A1 segment. Normal arborization of the distal segments. -LEFT ANTERIOR CEREBRAL ARTERY: Normal A1 segment. Normal arborization of the distal segments. -ANTERIOR COMMUNICATING ARTERY: Normal. -RIGHT MIDDLE CEREBRAL ARTERY: Normal M1 segment of the MCA without focal stenosis or occlusion. Normal arborization of the distal segments. -LEFT MIDDLE CEREBRAL ARTERY: Normal M1 segment of the MCA without focal stenosis or occlusion. Normal arborization of the distal segments. -RIGHT VERTEBRAL ARTERY V4: Normal in course and caliber. Normal PICA branch. -LEFT VERTEBRAL ARTERY V4: Normal in course and caliber. Normal PICA branch. -BASILAR ARTERY: Both Vertebrals join to form the basilar. Basilar artery is normal without focal stenosis or occlusion. Normal appearance of the proximal superior cerebellar arteries. Normal basilar tip. -RIGHT POSTERIOR CEREBRAL ARTERY: The P1 segment is diminutive. origin of the COMPUTER ANIMATOR with robust opacification of the posterior communicating artery. Normal opacification of the distal COMPUTER ANIMATOR segments. -LEFT POSTERIOR CEREBRAL ARTERY: Normal P1 segment. Normal opacification of the distal COMPUTER ANIMATOR segments. -POSTERIOR COMMUNICATING ARTERIES: Left is not well seen. Right patent. -MIPPED reformats demonstrate no regions of oligemia within the supratentorial or infratentorial brain. Normal opacification of the superior sagittal, straight, transverse, and sigmoid sinuses. No venous thrombosis. CT/CT angio head neck IMPRESSION: 1. Noncontrast head CT demonstrating no evidence of intracranial hemorrhage, mass effect, or acute territorial infarct. 2. CT angiogram of the head and neck showing no evidence of significant vascular stenosis, occlusion, aneurysm, or dissection. 3. Mild to moderate soft and calcific atheromatous plaque right carotid bulb and proximal ICA results in approximate 20% stenosis. 4. Mild to moderate predominantly calcific plaque left carotid bulb and proximal ICA results in approximate 30% stenosis. 5. See the body the report for additional ancillary findings. Electronically signed by: Osmin Lainez MD 05/31/2024 04:01 PM EST RP Dictated By: Osmin Lainez MD Signed By: <Electronically signed by Osmin Lainez MD in OV> 05/31/24 1601 DD/ 1439 TD/TT: 05/31/24 1515 Director Of Career Services: us [facility] External Provider IMG CT PROCEDURES Final Result * CT Cervical Spine w/o Contrast (05/31/2024 2:39 PM EST) Anatomical Region Laterality Modality Spine, C-spine Computed Tomogra phy 05/31/2024 2:39 PM EST Narrative 05/31/2024 3:51 PM EST ? [facility] ?[address] ?[place] [address] ? CT Scan Report ? Signed ? Patient: Inderjit Stoner ?MR ?? #: [id number] ? : 1960 ?Acct:[id number] ? Age/Sex: 63 / M ?ADM Date: 05/31/24 ? Loc: HO.ED ? Attending Dr: ? Ordering Physician: Tala Delgadillo ?? Date of Service: 05/31/24 ?? Procedure(s): CT cervical spine wo IV con ?? Accession Number(s): [id number] ? cc: Tala Delgadillo; Sherri Selby MD ? Report Number: ?? [id number]: Total DLP = ??591.42 mGy-cm ?? EXAMINATION: ?? CT CERVICAL SPINE WITHOUT CONTRAST ? CLINICAL INFORMATION: ?? Syncope. Status post fall. Dizziness. ? COMPARISON: ?? CT dated May 20, 2020. ? TECHNIQUE: ?? Diffuse axial images through the cervical spine using 3 mm collimation ?? with bone and soft tissue algorithm. Sagittal and coronal reformatted ?? images acquired. ? This CT examination was performed using dose optimization techniques as ?? appropriate, variously including the following: ?? *Automated exposure control ?? *Adjustment of mA and/or kV according to patient size (this includes ?? techniques or standardized protocols for targeted exams where dose is ?? matched to indication/reason for exam; i.e. extremities or head) ?? *Use of iterative reconstruction technique. ?? DLP: 2963 mGy centimeter ? FINDINGS: ?? Craniocervical junction is intact. ?? C1 is intact. ?? C2 is intact. ?? C3 is intact. ?? C4 is intact. ?? C5 is intact. ?? C6 is intact. ?? C7 is intact. ?? No gross prevertebral compartment hematoma. ?? No gross malalignment. ?? Mild marginal osteophyte formation C5-6 and C4-5 and C3-4 levels. ?? Calcified plaques in the carotid bulbs and proximal ICAs bilaterally. ?? Tympanic cavities are well aerated. ? CT/CT cervical spine wo IV con ?? IMPRESSION: ?? No acute fracture or trauma-related listhesis. Stable appearance since ?? prior exam. ?? Atherosclerosis disease, carotid bulbs and proximal ICAs. ? Fleischner guidelines were followed. ? Electronically signed by: ??Blu Farrell MD ??05/31/2024 03:48 PM ?? EST ? Dictated By: ?Blu Mijares MD ? Signed By: ?<Electronically signed by Blu Moses MD in OV> ? 05/31/24 1548 ? DD/ 1439 ? TD/TT: 05/31/24 1517 ? Director Of Career Services: ? Procedure Note Diamante Cox - 05/31/[address] [address] [address] Scan Report Signed Patient: Inderjit Stoner [facility] #: [id number] : 1960cct:[id number] Age/Sex: 63 / MADM Date: 05/31/24 Loc: HO.ED Attending Dr: Ordering Physician: Tala Delgadillo Date of Service: 05/31/24 Procedure(s): CT cervical spine wo IV con Accession Number(s): [id number] cc: Tala Delgadillo; Sherri Selby MD Report Number: [id number]: Total DLP = 591.42 mGy-cm EXAMINATION: CT CERVICAL SPINE WITHOUT CONTRAST CLINICAL INFORMATION: Syncope. Status post fall. Dizziness. COMPARISON: CT dated May 20, 2020. TECHNIQUE: Diffuse axial images through the cervical spine using 3 mm collimation with bone and soft tissue algorithm. Sagittal and coronal reformatted images acquired. This CT examination was performed using dose optimization techniques as appropriate, variously including the following: *Automated exposure control *Adjustment of mA and/or kV according to patient size (this includes techniques or standardized protocols for targeted exams where dose is matched to indication/reason for exam; i.e. extremities or head) *Use of iterative reconstruction technique. DLP: 2963 mGy centimeter FINDINGS: Craniocervical junction is intact. C1 is intact. C2 is intact. C3 is intact. C4 is intact. C5 is intact. C6 is intact. C7 is intact. No gross prevertebral compartment hematoma. No gross malalignment. Mild marginal osteophyte formation C5-6 and C4-5 and C3-4 levels. Calcified plaques in the carotid bulbs and proximal ICAs bilaterally. Tympanic cavities are well aerated. CT/CT cervical spine wo IV con IMPRESSION: No acute fracture or trauma-related listhesis. Stable appearance since prior exam. Atherosclerosis disease, carotid bulbs and proximal ICAs. Fleischner guidelines were followed. Electronically signed by: Blu Farrell MD 05/31/2024 03:48 PM EST Dictated By: Blu Mijares MD Signed By: <Electronically signed by Blu Moses MDin OV> 05/31/24 1548 DD/ 1439 TD/TT: 05/31/24 1517 Director Of Career Services: [facility] External Provider IMG CT PROCEDURES Final Result * SARS-CoV-2 RNA, Influenza A/B, and RSV RNA, Ql NAAT (05/31/2024 1:49 PM EST) Influenza A PCR NEGATIVE Negative [facility] Influenza B PCR NEGATIVE Negative [facility] Resp Syncy Virus RNA Qual PCR NEGATIVE Negative [facility] SARS COV2 PCR NEGATIVE Negative [facility] Comment:All test results mus t be correlated with clinical findings.Negative results do not preclude SARS-CoV2, influenza Avirus, influenza B virus and/or RSV infectionand should not be used as the sole basis for treatment orother patient management decisions. Negative results must becombined with clinical observations, patient history, andepidemiological information.This test has not been evaluated for monitoring treatment ofinfection.This test has been authorized by the FDA under an EmergencyUse Authorization (EUA) for use by authorized laboratories.Testing performed on the [employer] GeneXpert utilizingreal-time RT-PCR.All SARS CoV2 and positive influenza A/B results arereported to [facility]. 05/31/2024 1:49 PM EST 05/31/2024 2:25 PM EST us Generic External Data Provider LAB MICROBIOLOGY - GENERAL ORDERABLES Final Result [facility] [address] [place] [phone] * Levetiracetam (05/31/2024 1:41 PM EST) Levetiracetam 10.9 6.0 - 46.0 mcg/mL [facility] Comment:Brivaracetam (Brivia ct(R), Rikelta(R)) exhibitssignificant cross- reactivity in the Levetiracetam(Keppra(R), Spritam(R)) immunoassay. If Brivaracetamhas been prescribed, order test code [id number] by LCMSMS.THIS TEST WAS PERFORMED AT:[employer]/[id number] [place] [address]CBUULJTLOBO WHEAT MD,PHD 05/31/2024 1:41 PM EST 05/31/2024 1:44 PM EST us Generic External Data Provider LAB BLOOD ORDERAB LES Final Result Performing Organization Address [facility] Co de Phone Number [facility] [address] [place] [phone] * High Sensitivity Troponin I (05/31/2024 1:41 PM EST) Pathologist [facility] TROPONIN I HIGH SENSITIVITY <2.7 <3.5 - 35.0 ng/L [facility] Comment:The [place] high sens itivity Troponin-I results should beused in conjunction with other diagnostic information suchas ECG, clinical observations and information, and patientsymptoms to aid in the diagnosis of [place]. 05/31/2024 1:41 PM EST 05/31/2024 1:44 PM EST Generic External Data Provider LAB BLOOD ORDERAB LES Final Result Performing Organization Address [facility] Co de Phone Number [facility] [address] [place] [phone] * Partial Thromboplastin Time, Activated (APTT) (05/31/2024 1:41 PM EST) [facility] Partial Thromboplastin Time 28.1 26.0 - 36.8 SEC [facility] Comment:For information rega rding the monitoring of direct thrombininhibitors, please refer to Pharmacy. 05/31/2024 1:41 PM EST 05/31/2024 1:44 PM EST Generic External Data Provider LAB BLOOD ORDERAB LES Final Result Performing Organization Address [facility] Co de Phone Number [facility] [address] [place] [phone] * Prothrombin Time-INR (05/31/2024 1:41 PM EST) Pathologist [facility] Prothrombin Time 12.1 10.9 - 12.4 SEC [facility] INTERNATIONAL NORM RATIO 1.0 0.9 - 1.1 [facility] Comment:INTERNATIONAL NORMAL IZED RATIO (INR) REFERENCE RANGES Reference RangeFor patients not on anticoagulant therapy: 0.9 - 1.1INR ranges for oral anticoagulanttherapy:For prevention and treatment of venous thrombosis and pulmonary embolism: 2.0 - 3.0For acute myocardial infarction with aspirin therapy: 2.0 - 3.0For acute myocardial infarction without aspirin therapy: 3.0 - 4.0For patients with mechanical prosthetic heart valves: 2.5 - 3.5 05/31/2024 1:41 PM EST 05/31/2024 1:44 PM EST Generic External Data Provider LAB BLOOD ORDERAB LES Final Result Performing Organization Address [facility]/ZIP Co de Phone Number [facility] [address] [place] [phone] * Magnesium (05/31/2024 1:41 PM EST) [facility] Magnesium 2.0 1.6 - 2.6 mg/dL [facility] 05/31/2024 1:41 PM EST 05/31/2024 1:44 PM EST [facility] External Data Provider LAB BLOOD ORDERAB LES Final Result Performing Organization Address [facility] de Phone Number [facility] [address] [place] [phone] * (ABNORMAL) Basic Metabolic Panel (05/31/2024 1:41 PM EST) Pathologist [facility] Sodium 141 135 - 145 mmol/L [facility] Potassium 4.4 3.3 - 5.1 mmol/L [facility] Chloride 109(H) 96 - 108 mmol/L [facility] Carbon Dioxide 27 22 - 29 mmol/L [facility] Anion Gap 9(L) 12 - 20 [facility] Urea Nitrogen (BUN) 20(H) 9 - 16 mg/dL [facility] Creatinine, Serum 1.13 0.5 - 1.4 mg/dL [facility] Creatinine Clr [facility] Comment:eGFR (calculated fro m the MDRD study equation) and eCrCl(calculated from the Cockcroft-Gault equation) are based ondifferent parameters and may not yield comparable results.If eCrCl result is absurd, please check patient'sheight/weight. Estimated Glomerular Filt Rate >60 [facility] Comment:Chronic Kidney Disea se: Estimated GFR < 60 mL/min/[id number] Kidney Disease: Estimated GFR < 15 mL/min/1.73m2 Glucose 102 60 - 115 mg/dL [facility] Calcium 9.3 8.4 - 10.2 mg/dL [facility] 05/31/2024 1:41 PM EST 05/31/2024 1:44 PM EST us Generic External Data Provider LAB BLOOD ORDERAB LES Final Result Performing Organization Address [facility] Co de Phone Number [facility] [address] [place] [phone] * (ABNORMAL) Hepatic Function Panel (05/31/2024 1:41 PM EST) Bilirubin, Total 1.0 0.0 - 1.0 mg/dL [facility] Bilirubin, Direct 0.3 0.0 - 0.5 mg/dL [facility] Aspartate Amino Transferase 28 5 - 37 U/L [facility] Alanine Aminotransferase 75(H) 0 - 40 U/L [facility] Total Protein 7.8 6.5 - 8.0 g/dL [facility] Albumin Level 4.4 3.5 - 5.0 g/dL [facility] Alkaline Phosphatase 96 39 - 117 U/L [facility] 05/31/2024 1:41 PM EST 05/31/2024 1:44 PM EST us Generic External Data Provider LAB BLOOD ORDERAB LES Final Result Performing Organization Address [facility] Co de Phone Number [facility] [address] [place] [phone] CBC auto differential (05/31/2024 1:41 PM EST) White Blood Count 5.3 4.8 - 10.8 X10*3/uL [facility] Red Blood Count 5.32 4.60 - 5.80 X10*6/uL [facility] Hemoglobin 14.7 14.0 - 18.0 g/dl [facility] Hematocrit 45.4 42.0 - 52.0 % [facility] Mean Corpuscular Volume 85.3 80.0 - 98.0 fL [facility] Mean Corpuscular Hemoglobin 27.6 27.0 - 33.0 pg [facility] Mean Corpuscular HGB Conc 32.4 31.0 - 36.0 g/dl [facility] Red Cell Distribution Width 13.2 11.0 - 16.0 % [facility] Platelet Count 176 160 - 400 X10*3/uL [facility] Mean Platelet Volume 9.8 9.4 - 12.4 fL [facility] Neutrophils Percent Auto 70.4 45 - 73 % [facility] Imm Gran Pct Auto 0.4 0.0 - 0.4 % [facility] Lymphocytes Percent Auto 23.3 20 - 40 % [facility] Monocytes Percent Auto 4.9 2 - 11 % [facility] Eosinophils Percent Auto 0.6 0 - 4 % [facility] Basophils Percent Auto 0.4 0 - 2 % [facility] NRBC Pct Auto 0.0 0.0 - 0.2 /100WBC [facility] Neutrophils Absolute Auto 3.7 2.0 - 8.3 x10*3/uL [facility] Imm Gran Abs Auto 0.02 0.00 - 0.03 X10*3/uL [facility] Lymphocytes Absolute Auto 1.2 1.2 - 4.9 X10*3/uL [facility] Monocytes Absolute Auto 0.3 0.1 - 1.2 X10*3/uL [facility] Eosinophils Absolute Auto 0.0 0.0 - 0.4 X10*3/uL [facility] Basophils Absolute Auto 0.0 0.0 - 0.2 X10*3/uL [facility] NRBC Abs Auto 0.000 0.0 - 0.012 X10*3/uL [facility] 05/31/2024 1:41 PM EST 05/31/2024 1:44 PM EST us Generic External Data Provider LAB BLOOD ORDERAB LES Final Result Performing Organization Address City/State/[facility] Co de Phone Number [facility] [address] [place] [phone] documented in this encounter Visit Diagnoses Not on filedocumented in this encounter Additional Health Concerns Assessment Noted Time PHQ-9 Depression Total Score: 12 11/2 024 3:28 PM EST documented as of this encounter Care Teams [employer] Super[employer] Relationship Specialty Start Date End Date Sherri Selby MD [address] [place] [phone] PCP - General Internal Medicine 02/02/23 documented as of this encounter
--- OUTSIDE RECORDS SUMMARY | 2024-06-06 14:26 | XMS_ITS | Clinical Summary ---
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 famotidine (Pepcid) 40 MG tablet Take 40 mg by mouth at bedtime. 3 Active propranolol (Inderal) 10 MG tablet 3 Active senna (Senokot) 8.6 MG tablet 3 Active pantoprazole (ProtoNix) 40 MG EC tablet TAKE 1 TABLET BY MOUTH TWICE DAILY IN THE MORNING AND AT BEDTIME 3 Active SM Fiber Laxative 500 MG tablet TAKE 1 TABLET BY MOUTH EVERY MORNING WITH GLASS OF WATER 2 Active docusate sodium (Colace) 100 MG capsule Take 100 mg by mouth at bedtime. 3 Active nitroglycerin (Nitrostat) 0.4 MG SL tabletIndicatio ns:Atherosclero sis of nenana coronary artery of nenana heart with stable angina pectoris (CMS/HCC) Place 1 tablet (0.4 mg) under the tongue every 5 (five) minutes if needed for chest pain. 90 tablet 1 3 Active polyethylene glycol, PEG, 3350 (MiraLax) 17 GM/SCOOP powderIndicatio ns:Abdominal discomfort Mix 1 scoop (17g) of miralax in 8 ounces of beverage every morning and drink. 527 g 2 3 Active levETIRAcetam (Keppra) 500 MG tablet Take 1 tablet (500 mg) by mouth in the morning. 1 tablet 3 Active Diclofenac Sodium (Voltaren) 1 % gelIndications: Flank pain Apply 2 g topically if needed in the morning and at bedtime (muscle pain). 100 g 3 3 Active finasteride (Proscar) 5 MG tablet 4 Active FLUoxetine (PROzac) 40 MG capsule 40 mg in the morning. 2 cap a day 4 Active terazosin (Hytrin) 5 MG capsule Take 5 mg by mouth 1 (one) time. 4 Active primidone (Mysoline) 50 MG tablet Take 50 mg by mouth at bedtime. 4 Active topiramate (Topamax) 25 MG tablet Take 25 mg by mouth at bedtime. 4 Active Linzess 290 MCG capsule Take 290 mcg by mouth in the morning. 4 Active aspirin (Aspirin Adult Low Strength) 81 MG EC tabletIndicatio ns:TIA (transient ischemic attack) TAKE 1 TABLET BY MOUTH EVERY MORNING 90 tablet 1 4 Active methocarbamol (Robaxin) 500 MG tablet PLEASE SEE ATTACHED FOR DETAILED DIRECTIONS 4 Active lidocaine (Lidoderm) 5 % patchIndication s:Flank pain Apply 1 patch topically Once per day. Remove & discard patch within 12 hours or as directed by MD. 30 patch 1 4 Active omega-3 (fish oil) 1000 MG capsule Take 1 capsule (1,000 mg) by mouth Once per day. 90 capsule 1 4 12/01/19 25 Active Multiple Vitamins-Minera ls (CertaVite/Anti oxidants) tablet Take 1 tablet by mouth in the morning. 90 tablet 3 4 Active atorvastatin (Lipitor) 80 MG tablet Take 1 tablet (80 mg) by mouth Once per day. TAKE 1 TABLET BY MOUTH AT BEDTIME 90 tablet 3 4 Active Active Problems Problem Noted Date Diagnosed Date Poor memory 03/03/2024 Overweight 03/03/2024 Blurry vision 03/03/2024 Dark stools 03/03/2024 Prediabetes 12/01/2023 Skin lumps 10/18/2023 Mild anxiety 07/18/2023 Dental calculus 03/24/2023 Localized gingival recession, moderate 3 Missing teeth, acquired 03/24/2023 Dental abscess 03/24/2023 Left lower quadrant abdominal pain 02/03/2023 Overview (02/03/2023): GI appt 12/20/22 Left lower quadrant pain most likely related to muscular or neurological pain. Patient was encouraged to follow-up with his PCP regarding referral to neurosurgeon as recommended also by surgeon that patient recently saw for evaluation of his left lower quadrant pain. On exam patient has benign exam no tenderness, no mass, no swelling, no guarding No hernias per Gen Surg eval Kidney US bilateral WNL Assessment & Plan (02/03/2023 6:57 PM EDT): Refer to Neuro surgery per GI and Gen Surg recommendation Recommend pt treat back pain with stretching, ice/heat, rest Continue Lidocaine patches, voltaren gel F/u PRN Cortical age-related cataract of both eyes 02/03 Overview (02/03/2023): Had eye exam on 12/27/22: - Reports Chronic, worsening Left eye blurry vision/double vision and only seeing lights. Associated pressure and occasional sharp pain. 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 Given new eyeglasses Rx. Given list of places he can get eyeglasses ordered and will be covered by insurance. 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 - Pt has chronic left episcopal migraine. Injury to L episcopal about 3 years ago. 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 Last appt 04/28/22 Treating Keppra 250mg BID Followup 6 months - Chronic dizziness, aggravated by seizure disorder. Dyscognitive seizure disorder with episodes of blurry vision and passing out Saw Neurology about 2 months ago. States Keppra dose was increased. Assessment & Plan (02/03/2023 6:59 PM EDT): Dizziness and Vision problem may be r/t to migraines or seizures Encouraged pt to call Neurology about continued dizziness, headaches Increased Keppra Dose noted in medication list F/u PRN Assessment & Plan (11/24/2022 6:05 PM EDT): Dizziness and Vision problem may be r/t to migraines or seizures States he saw Neuro 2 months ago Task [place] to locate records Gave pt card with [facility] Fax number and have all specialists fax records to this number Increased Keppra Dose noted in medication list F/u PRN Severe episode of recurrent major depressive disorder, with psychotic features 11/30/2017 Assessment & Plan (07/20/2023 3:25 PM EST): Measurement Tools [Check all that apply and include scores] PHQ9, FELIZ-7 PHQ9: 13 GAD7: 8 STAGES OF CHANGE ACTION PLAN: (check all that apply) Continue with current services (defined as services in the past 12 months) Behavioral Health Integration Plan Patient Self Plan Patient to utilize skills provided in intervention and Patient to reach out to [facility] team as needed Rule Out Diagnoses n/a Behavioral Health Diagnoses At this time Inderjit meets criteria for Visit Diagnoses: Problem List Items Addressed This Visit Other Recurrent major depressive episodes, moderate (CMS/HCC) Mild anxiety TIA (transient ischemic attack) 11/30/2017 Tubular adenoma of colon 07/03/2014 Degeneration of lumbar intervertebral disc 06/19 Lumbar post-laminectomy syndrome 06/19/2013 Benign prostatic hyperplasia 04/26/2012 Hyperlipidemia 04/26/2012 Encounters Date Type Department Care Team Description 06/06/[address] [address] 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 External Provider, [facility] 04/05/[address] [address] Sherri Selby MD [place] (Nadia, the patient's daughter, is requesting [facility] to be able to care for him, due to his poor memory issues. I called him to ask for her telephone number, because the forms nurse needs more information, in order to complete the form. He provided Nadia's number, and the nurse will reach out to her today.) 04/03/[address] [place] [address] Sherri Selby MD 04/03/[address] [address] Sherri Selby MD 04/02/[address] [address] Sherri Selby MD 03/30/2024 Orders Only [address] [address] Sherri Selby MD 03/29/2024 Orders Only [address] [address] Sherri Selby MD Lipoma of lower extremity, unspecified laterality (Primary Dx) 03/29/[address] [address] Mirta Hernandez RN Results 03/28/2024 10:15 AM EST Office Visit [address] [address] Sherri Selby MD Lumbar post-laminectomy syndrome (Primary Dx); Leukopenia, unspecified type; Neuropathy; Abnormal SPEP; Left lower quadrant abdominal pain; Health care maintenance; Mixed hyperlipidemia; Poor memory; Skin lumps; TIA (transient ischemic attack) 03/28/2024 Travel 03/26/[address] [address] Chrissy Olivera MA chart prep 03/20/[address] [address] Chrissy Olivera MA walked in 03/19/2024 Orders Only GENERIC EXTERNAL DATA DEPARTMENT Provider, Generic External Data 03/12/2024 Orders Only [facility] External Provider, [facility] 03/07/2024 Orders Only [facility] External Provider, [facility] 03/06/2024 Orders Only [facility] [address] [place] [address] Sherri Selby MD Leg mass, left (Primary Dx) 03/06/2024 Telephone [facility] [address] [place], [place] [id number] Sherri Selby MD MRI ORDER from Last 3 Months Immunizations Name Administration Dates Next Due Hep B, adult 01/10/2024,12/07/2023 Influenza Injectable Quadriv alant Preservative Free IIV4 MDCK 03/14/2020 Influenza injectable quadrivalent preservative f ree 02/09/2022,06/02/2021 Influenza, IIV3, injectable 04/15/2014 Influenza, Split (incl. purified surface antigen ) 01/20/2015 Influenza, seasonal, injectable, preservative fr ee 03/02/2024 Pfizer Covid-19 Vaccine 12+ 03/02/2024, 4 RSV Bivalent 01/10/2024 Td (adult), 5 Lf tetanus tox oid, preservative free, adsorbed 06/14/2015 Tdap 05/20/2020,06/19/2013 Zoster, Recombinant 09/29/2021,05/02/2019 Family History Medical History Relation Name Comments Coronary artery disease Brother throat ca-smoker Father Cataracts Mother DM2.HTN Mother Glaucoma Mother unspecified maliagncy Mother kidney ca and another breast ca Sister Relation Name Status Comments Brother Father Mother Sister Social History Tobacco Use Types Packs/Day Years Used Date Smoking Tobacco: Never Passive Smoke Exposure: Never Smokeless Tobacco: Never Tobacco Cessation:Counseling Given: Not Answered Alcohol Use Standard Drinks/Week Comments Never 0 [...] Orientation Straight 03/15/2022 10 :14 AM EDT Last Filed Vital Signs Vital Sign Reading Time Taken Comments Blood Pressure 111/73 03/28/2024 10:49 AM EST Pulse 84 03/28/2024 10:49 AM EST Temperature 36.6 ??C (97.8 ??F) 03/28/2024 10:[address] Respiratory Rate 20 03/28/2024 10:49 AM EST Oxygen Saturation 97% 03/28/2024 10:49 AM EST Inhaled Oxygen Concentration - - Weight 88.5 kg (195 lb 3.2 oz) 03/28/2024 10:49 AM EST Height 175.3 cm (5' 9 ) 03/28/2024 10:49 AM EST Body Mass Index 28.83 03/28/2024 10:49 AM EST Plan of Treatment Upcoming Encounters Date Type Department Care Team (Late st Contact Info) Description 06/08/2024 2:00 PM EST Nurse Only [facility] [address] [place] [address] Health Maintenance Due Date Last Done Comments CT Colonography 1960 Colonoscopy 1960 FIT DNA/Cologuard 1960 Sigmoidoscopy 1960 Pneumococcal Vaccine: Pediatrics (0 to 5 Years) and At-Risk Patients (6 to 64 Years) (1 of 2 - PCV) 1966 Dental Oral Exam 09/23/2023 03/24/2023, 03/2022, 05/02/2019, Additional history exists Dental X-Ray: Bitewings 03/25/2024 03/24/20, 12/24/2021, 03/23/2021, Additional history exists Dental Prophylaxis 04/19/2024 10/18/2023, 1 05/24/2022, 12/24/2021, Additional history exists Hepatitis B Vaccines (3 of 3 - 19+ 3-dose series) 06/08/2024 01/10/2024, 12/07/2023 Depression Monitoring (PHQ-9) 09/25/2024 03/28/2024, 03/28/2024 SDOH Screening 10/10/2024 10/11/2023 Diabetes: Hemoglobin A1C 11/15/2024 024, 08/10/2022, 10/28/2021 Colorectal Cancer Screening 03/07/2025 FIT 03/07/2025 03/07/2024, 06/05/2023 FOBT 03/07/2025 03/07/2024, 06/05/2023 Alcohol/Substance Use Screening 03/28/2025 03/28/2024 Depression Screening 03/28/2025 03/28/2024, 03/28/20 Tobacco Screening 03/28/2025 03/28/2024 Dental X-Ray: Full Mouth 03/25/2026 023, 05/02/2019, 06/16/2018, Additional history exists Lipid Panel 03/19/2029 03/19/2024, 07/0 07/2023, 10/28/2021 DTaP/Tdap/Td Vaccines (4 - Td or Tdap) 05/20/2030 05/20/2020, 06/14/2015, 06/19/2013 Zoster Vaccines Completed 09/29/2021, 05/02/2019 HIV Screening Completed 11/16/2023 Hepatitis C Screening Completed 11/16/2023 RSV Patients and Patients Aged 60 years or older Completed 01/10/2024 COVID-19 Vaccine Completed 03/02/2024, 08/2023, 04/13/2022, Additional history exists Influenza Vaccine Completed 03/02/2024, , 06/02/2021, Additional history exists HIB Vaccines Aged Out No longer eligi [...] patient's age to complete this topic Meningococcal Vaccine Aged Out No nga cullen eligible based on patient's age to complete this topic RSV under 20 months Aged Out No longe r eligible based on patient's age to complete this topic Rotavirus Vaccines Aged Out No longer eligible based on patient's age to complete this topic Procedures Procedure Name Priority Date/Time Associated Diagnosis Comments CTA HEAD NECK W AND WO CONTRAST Routine 05/31/2024 2:[address] CERVICAL SPINE WO CONTRAST Routine 05/31/2024 2:39 PM EST SARS COV2/INFLUENZA A/B AND RSV RNA QL NAAT Routine 05/31/2024 1:49 PM EST LEVETIRACETAM Routine 05/31/2024 1:41 PM EST HIGH SENSITIVITY TROPONIN I Routine 05/31/2024 1:41 PM EST APTT Routine 05/31/2024 1:41 PM EST PROTHROMBIN TIME-INR Routine 05/31/2024 1:41 PM EST MAGNESIUM Routine 05/31/2024 1:41 PM EST BASIC METABOLIC PANEL Routine 05/31/2024 1:41 PM EST HEPATIC FUNCTION PANEL Routine 1:41 PM EST CBC WITH AUTO DIFFERENTIAL Routine 05/31/2024 1:41 PM EST GROSS AND MICROSCOPIC LEVEL 3 Routine 04/17/2024 2:00 PM EST STRESS TEST WITH MYOCARDIAL PERFUSION Routine 04/10/2024 9:33 AM EST PROTEIN, TOTAL AND PROTEIN ELECTROPHORESIS, RANDOM URINE Routine 03/30/2024 7:30 AM EST PSA, TOTAL Routine 03/19/2024 11:05 AM EST C-REACTIVE PROTEIN Routine 03/19/2024 11 :05 AM EST IMMUNOFIXATION, SERUM Routine 03/19/2024 11:05 AM EST Dizziness PROTEIN ELECTROPHORESIS AND KAPPA/LAMBDA LIGHT CHAINS, SERUM Routine 03/19/2024 11:05 AM EST Dizziness COMPREHENSIVE METABOLIC PANEL Routine 03/19/2024 11:05 AM EST Mixed hyperlipidemia LIPID PANEL, STANDARD Routine 03/19/2024 11:05 AM EST Mixed hyperlipidemia IRON AND TOTAL IRON BINDING CAPACITY Routine 03/19/2024 11:05 AM EST Dizziness FERRITIN Routine 03/19/2024 11:05 AM EST Dizziness TSH W/REFLEX TO FT4 Routine 03/19/2024 1 1:05 AM EST Dizziness CBC Routine 03/19/2024 11:05 AM EST Dizziness US PELVIS LIMITED Routine 03/12/2024 1:2 6 PM EDT VASC US CAROTID ARTERY DUPLEX BILATERAL Routine 03/12/2024 1:13 PM EDT Dizziness MR FEMUR W AND WO CONTRAST LEFT Routine 03/10/2024 4:25 PM EDT Leg mass, left FECAL GLOBIN BY IMMUNOCHEMISTRY Routine 03/07/2024 12:00 AM EDT HEPATITIS C AB W/REFL TO HCV RNA, QN, PCR Routine 11/16/2023 12:08 PM EDT Annual physical exam HIV 1/2 ANTIGEN/ANTIBODY, FOURTH GENERATION W/RFL Routine 11/16/2023 12:08 PM EDT Annual physical exam HEMOGLOBIN A1C Routine 11/16/2023 12:08 PM EDT Annual physical exam Full PROPHYLAXIS - ADULT Routine 10/18/2023 9:00 AM EDT Dental calculus DIAGNOSTIC - DIAGNOSTIC IMAGING - INTRAORAL - COMPREHENSIVE SERIES OF RADIOGRAPHIC IMAGES Routine 03/24/2023 11:00 AM EST Dental calculus Localized gingival recession, moderate Missing teeth, acquired Dental abscess PERIODIC ORAL EVALUATION - ESTABLISHED PATIENT Routine 03/24/2023 11:00 AM EST from Last 3 Months or Most Recently Relevant to Health Maintenance Results * CT Cervical Spine w/o Contrast (05/31/2024 2:39 PM EST) Anatomical Region Laterality Modality Spine, C-spine Computed Tomogra phy 05/31/2024 2:39 PM EST Narrative 05/31/2024 3:51 PM EST ? [facility] ?[address] ?[place] [address] ? CT Scan Report ? Signed ? Patient: Inderjit Stoner ?MR ?? #: [id number] ? : 1960 ?Acct:[id number] ? Age/Sex: 63 / M ?ADM Date: 01/16/25 ? Loc: HO.ED ? Attending Dr: ? Ordering Physician: Tala Delgadillo ?? Date of Service: 05/31/24 ?? Procedure(s): CT cervical spine wo IV con ?? Accession Number(s): [id number] ? cc: Tala Delgadillo; Sherri Selby MD ? Report Number: ?? [id number]: Total DLP = ??591.42 mGy-cm ?? EXAMINATION: [...] Farrell MD ??05/31/2024 03:48 PM ?? EST RP ? Dictated By: ?Blu Mijares MD ? Signed By: ?<Electronically signed by Blu Moses MD in OV> ? 05/31/24 1548 ? DD/ 1439 ? TD/TT: 05/31/24 1517 ? Massage Coordinator: ? Procedure Note Brooke, Diamante - 05/31/[address] [place] [address] CT Scan Report Signed Patient: Inderjit Stoner [facility] #: [id number] : 1960cct:[id number] Age/Sex: 63 / MADM Date: 05/31/24 Loc: HO.ED Attending Dr: Ordering Physician: Tala Delgadillo Date of Service: 05/31/24 Procedure(s): CT cervical spine wo IV con Accession Number(s): [id number] cc: Tala Delgadillo; Sherri Selby MD Report Number: [id number]: Total DLP = 591.42 mGy-cm EXAMINATION: CT [...] by: Blu Farrell MD 05/31/2024 03:48 PM [facility] Dictated By: Blu Mijares MD Signed By: <Electronically signed by Blu Moses MDin OV> 05/31/24 1548 DD/ 1439 TD/TT: 05/31/24 1517 Massage Coordinator: us [facility] External Provider IMG CT PROCEDURES Final Result * CTA Head Neck w/ and w/o Contrast (05/31/2024 2:39 PM EST) Anatomical Region Laterality Modality Head, Neck Computed Tomogra phy 05/31/2024 2:39 PM EST Narrative 05/31/2024 4:04 PM EST ? [facility] ?[address] ?[place] [address] ? CT Scan Report ? Signed ? Patient: Inderjit Stoner ?MR ?? #: [id number] ? : 1960 ?Acct:[id number] ? Age/Sex: 63 / M ?ADM Date: 05/31/24 ? Loc: HO.ED ? Attending Dr: ? Ordering Physician: Tala Delgadillo ?? Date of Service: 05/31/24 ?? Procedure(s): CT angio head neck ?? Accession Number(s): [id number] ? cc: Tala Delgadillo; Sherri Selby MD ? Report Number: ?? [id number]: Total DLP = 2963.00 mGy-cm ?? EXAMINATION: [...] The data was ?? processed at the ct mri technologist's workstation for generation of MIP ?? [...] segment is diminutive. ?? origin of the CASHIER PAYMENTS RECEIVED with robust opacification of the posterior ?? communicating artery. Normal opacification of the distal CASHIER PAYMENTS RECEIVED segments. ?? -LEFT POSTERIOR CEREBRAL ARTERY: Normal P1 segment. Normal ?? opacification of the distal CASHIER PAYMENTS RECEIVED segments. ?? -POSTERIOR COMMUNICATING ARTERIES: Left is [...] DD/ 1439 ? TD/TT: 05/31/24 1515 ? Massage Coordinator: ? Procedure Note Donotuseinterpreter, Image - 05/31/[address] [place] [address] [address] Scan Report Signed Patient: Inderjit Stoner [facility] #: [id number] : 1960cct:[id number] Age/Sex: 63 / MADM Date: 05/31/24 Loc: HO.ED Attending Dr: Ordering Physician: Tala Delgadillo Date of Service: 05/31/24 Procedure(s): CT angio head neck Accession Number(s): [id number] cc: Tala Delgadillo; Sherri Selby MD Report Number: [id number]: Total DLP = 2963.00 mGy-cm EXAMINATION: CT [...] obtained. The data was processed at the ct mri technologist's workstation for generation of MIP sequences. [...] P1 segment is diminutive. origin of the CASHIER PAYMENTS RECEIVED with robust opacification of the posterior communicating artery. Normal opacification of the distal CASHIER PAYMENTS RECEIVED segments. -LEFT POSTERIOR CEREBRAL ARTERY: Normal P1 segment. Normal opacification of the distal CASHIER PAYMENTS RECEIVED segments. -POSTERIOR COMMUNICATING ARTERIES: Left is not [...] by: Osmin Lainez MD 05/31/2024 04:01 PM [facility] Dictated By: Osmin Lainez MD Signed By: <Electronically signed by Osmin Lainez MD in OV> 05/31/24 1601 DD/ 1439 TD/TT: 05/31/24 1515 Massage Coordinator: [facility] External Provider IMG CT PROCEDURES Final Result * SARS-CoV-2 RNA, Influenza A/B, and RSV RNA, Ql NAAT (05/31/2024 1:49 PM EST) Influenza A PCR NEGATIVE Negative [facility] Influenza B PCR NEGATIVE Negative [facility] Resp Syncy Virus RNA Qual PCR NEGATIVE Negative [facility] SARS COV2 PCR NEGATIVE Negative [facility] Comment:All test results mus t [...] use by authorized laboratories.Testing performed on the [employer] GeneXpert utilizingreal-time RT-PCR.All SARS CoV2 and positive influenza A/B results arereported to [facility]. 05/31/2024 1:49 PM EST 05/31/2024 2:25 PM EST Generic External Data Provider LAB MICROBIOLOGY - GENERAL ORDERABLES Final Result [facility] [address] [place] [phone] * High Sensitivity Troponin I (05/31/2024 1:41 PM EST) TROPONIN I HIGH SENSITIVITY <2.7 <3.5 - 35.0 ng/L [facility] Comment:The [place] high sens itivity Troponin-I results should beused in conjunction with other diagnostic information suchas ECG, clinical observations and information, and patientsymptoms to aid in the diagnosis of ID. 05/31/2024 1:41 PM EST 05/31/2024 1:44 PM EST us Generic External Data Provider LAB BLOOD ORDERAB LES Final Result [facility] [address] [place] [address] [phone] * CBC auto differential (05/31/2024 1:41 PM EST) White Blood Count 5.3 4.8 - 10.8 X10*3/uL [facility] Red Blood Count 5.32 4.60 - 5.80 X10*6/uL [facility] Hemoglobin 14.7 14.0 - 18.0 g/dl [facility] Hematocrit 45.4 42.0 - 52.0 % [facility] Mean Corpuscular Volume 85.3 80.0 - 98.0 fL [facility] Mean Corpuscular Hemoglobin 27.6 27.0 - 33.0 pg [facility] Mean Corpuscular HGB Conc 32.4 31.0 - 36.0 g/dl [facility] Red Cell Distribution Width 13.2 11.0 - 16.0 % [facility] Platelet Count 176 160 - 400 X10*3/uL [facility] Mean Platelet Volume 9.8 9.4 - 12.4 fL [facility] Neutrophils Percent Auto 70.4 45 - 73 % [facility] Imm Gran Pct Auto 0.4 0.0 - 0.4 % [facility] Lymphocytes Percent Auto 23.3 20 - 40 % [facility] Monocytes Percent Auto 4.9 2 - 11 % [facility] Eosinophils Percent Auto 0.6 0 - 4 % [facility] Basophils Percent Auto 0.4 0 - 2 % [facility] NRBC Pct Auto 0.0 0.0 - 0.2 /100WBC [facility] Neutrophils Absolute Auto 3.7 2.0 - 8.3 x10*3/uL [facility] Imm Gran Abs Auto 0.02 0.00 - 0.03 X10*3/uL [facility] Lymphocytes Absolute Auto 1.2 1.2 - 4.9 X10*3/uL [facility] Monocytes Absolute Auto 0.3 0.1 - 1.2 X10*3/uL [facility] Eosinophils Absolute Auto 0.0 0.0 - 0.4 X10*3/uL [facility] Basophils Absolute Auto 0.0 0.0 - 0.2 X10*3/uL [facility] NRBC Abs Auto 0.000 0.0 - 0.012 X10*3/uL [facility] 05/31/2024 1:41 PM EST 05/31/2024 1:44 PM EST us Generic External Data Provider LAB BLOOD ORDERAB LES Final Result Performing Organization Address [facility]/ZIP Co de Phone Number [facility] [address] [place] [phone] * Levetiracetam (05/31/2024 1:41 PM EST) Levetiracetam 10.9 6.0 - 46.0 mcg/mL [facility] Comment:Brivaracetam (Brivia ct(R), Rikelta(R)) exhibitssignificant cross- reactivity in the Levetiracetam(Keppra(R), Spritam(R)) immunoassay. If Brivaracetamhas been prescribed, order test code [id number] by LCMSMS.THIS TEST WAS PERFORMED AT:[employer] [place] [id number] WHEAT MD,PHD 05/31/2024 1:41 PM EST 05/31/2024 1:44 PM EST us Generic External Data Provider LAB BLOOD ORDERAB LES Final Result Performing Organization Address [facility]/ZIP Co de Phone Number [facility] [address] [place] [phone] * Partial Thromboplastin Time, Activated (APTT) (05/31/2024 1:41 PM EST) Partial Thromboplastin Time 28.1 26.0 - 36.8 SEC [facility] Comment:For information rega rding the monitoring of direct thrombininhibitors, please refer to Pharmacy. 05/31/2024 1:41 PM EST 05/31/2024 1:44 PM EST Generic External Data Provider LAB BLOOD ORDERAB LES Final Result Performing Organization Address [facility]/ZIP Co de Phone Number [facility] [address] [place] [address] [phone] * Prothrombin Time-INR (05/31/2024 1:41 PM EST) Prothrombin Time 12.1 10.9 - 12.4 SEC [facility] INTERNATIONAL NORM RATIO 1.0 0.9 - 1.1 [facility] Comment:INTERNATIONAL NORMAL IZED RATIO (INR) REFERENCE [...] 1:41 PM EST 05/31/2024 1:44 PM EST [email or web address] External Data Provider LAB BLOOD ORDERAB LES Final Result Performing Organization Address [facility]/ZIP Co de Phone Number [facility] [address] [place] [address] [phone] * Magnesium (05/31/2024 1:41 PM EST) Magnesium 2.0 1.6 - 2.6 mg/dL [facility] 05/31/2024 1:41 PM EST 05/31/2024 1:44 PM EST Generic External Data Provider LAB BLOOD ORDERAB LES Final Result Performing Organization Address [facility]/ZIP Co de Phone Number [facility] [address] [place] [phone] * (ABNORMAL) Hepatic Function Panel (05/31/2024 1:41 PM EST) Bilirubin, Total 1.0 0.0 - 1.0 mg/dL [facility] Bilirubin, Direct 0.3 0.0 - 0.5 mg/dL [facility] Aspartate Amino Transferase 28 5 - 37 U/L [facility] Alanine Aminotransferase 75(H) 0 - 40 U/L [facility] Total Protein 7.8 6.5 - 8.0 g/dL [facility] Albumin Level 4.4 3.5 - 5.0 g/dL [facility] Alkaline Phosphatase 96 39 - 117 U/L [facility] 05/31/2024 1:41 PM EST 05/31/2024 1:44 PM EST [email or web address] External Data Provider LAB BLOOD ORDERAB LES Final Result Performing Organization Address [facility] Co de Phone Number [facility] [address] [place] [phone] * (ABNORMAL) Basic Metabolic Panel (05/31/2024 1:41 PM EST) Sodium 141 135 - 145 mmol/L [facility] Potassium 4.4 3.3 - 5.1 mmol/L [facility] Chloride 109(H) 96 - 108 mmol/L [facility] Carbon Dioxide 27 22 - 29 mmol/L [facility] Anion Gap 9(L) 12 - 20 [facility] Urea Nitrogen (BUN) 20(H) 9 - 16 mg/dL [facility] Creatinine, Serum 1.13 0.5 - 1.4 mg/dL [facility] Creatinine Clr Calc Pharmacy 73.7 [facility] Comment:eGFR (calculated fro m the MDRD study equation) and eCrCl(calculated from the Cockcroft-Gault equation) are based ondifferent parameters and may not yield comparable results.If eCrCl result is absurd, please check patient'sheight/weight. Estimated Glomerular Filt Rate >60 [facility] Comment:Chronic Kidney Disea se: Estimated GFR < 60 mL/min/1.81s4Hsivqa Kidney Disease: Estimated GFR < 15 mL/min/1.73m2 Glucose 102 60 - 115 mg/dL [facility] Calcium 9.3 8.4 - 10.2 mg/dL [facility] 05/31/2024 1:41 PM EST 05/31/2024 1:44 PM EST us Generic External Data Provider LAB BLOOD ORDERAB LES Final Result Performing Organization Address City/State/[facility] Co de Phone Number [facility] [address] [place] [address] [phone] * Gross and Microscopic Level 3 (04/17/2024 2:00 PM EST) 04/17/2024 2:00 PM EST 04/18/2024 8:18 AM EST Narrative [facility] - 04/19/2024 4:04 PM EST ----- ------- Name: Inderjit Stoner ?Age/Sex: 63/M ? : 1960 Unit#: [id number] ?? Attend Dr: Francesco Winston MD ?Re04/17/24 ?Status: DEP REF ? Location: HO.LNP ?Disch: ? ----- ------- SPEC : [id number] ? RECD: 04/18/24 ? STATUS: ??SOUT ? REQ NUM: [id number] ? MARY ANN: 04/17/24 ? SUBM DR: Francesco Winston MD ? ENTERED: ??04/18/24 ?SP TYPE: Surgical ? OTHR DR: Sherri Selby MD ORDERED: ??Gross Micro L3 ? Diagnosis ?? 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 ?Clinical History Lt post thigh lipoma ?Microscopic Description Microscopic sections reviewed. ? Material Received ?? Lt post thigh lipoma ? Gross Description Received in formalin labeled ?left post thigh-lipoma? is an oval mass of lobulated yellow adipose tissue measuring 2.5 x 2.0 x 1.4 cm in greatest dimension. ??The specimen is encapsulated by paper thin transparent membrane. ??The outer surface is inked blue. Sectioning reveals a smooth, moist homogeneous yellow-white cut surface. ??Rn Heart sections are submitted for microscopic examination in cassettes A1 and A2, 2 pieces each. smc Copies To: ?? Sherri Selby MD ?? [address] [facility] ?? [place] [address] ?? [phone] ?? Francesco Winston MD ?? [facility] ?? [address] ?? [place] [address] ?? [phone] ?? [email or web address] ----- ------- Signed (signature on file) Eugenio Roberts MD 04/19/24 5751 ? ----- ------- ? END OF REPORT ? us Generic External Data Provider LAB CYTOLOGY DARIEN GOLDSTEIN Final Result [facility] [address] [facility] [place] [phone] * Stress test with myocardial perfusion (04/10/2024 9:33 AM EST) 04/10/2024 9:33 AM EST Narrative [facility] - 04/14/2024 1:04 PM EST ? [facility] ?[address] ?[place] [address] ?Nuclear Medicine Report ? Signed ? Patient: Inderjit Stoner ?MR ?? #: [id number] ? : 1960 ?Acct:[id number] ? Age/Sex: 63 / M ?ADM Date: 04/10/24 ? Loc: HO.CARD ? Attending Dr: Sharan Mariscal MD ? Ordering Physician: Sharan Mariscal MD ?? Date of Service: 04/10/24 ?? Procedure(s): NM cardiolite stress test ?? Accession Number(s): [id number] ? cc: Sherri Selby MD; Sharan Mariscal MD ? EXERCISE MYOCARDIAL PERFUSION STUDY ? INDICATION: ?? Chest pain ? TECHNIQUE: ? The patient was brought in for an exercise perfusion study on ?? 04/10/2024. Patient performed exercise as per Saulo protocol and was ?? injected ??30 mCi of sestamibi once target heart rate was achieved. ?? Images were obtained using the SPECT gamma camera interlaced with the ?? gating device. Images were obtained in supine position. ? Resting perfusion study was performed on 04/11/2024. Patient was ?? administered 30 mCi of sestamibi intravenously at rest. Images were ?? then obtained in supine position. Total DLP 186 mGy-cm. ? Images were processed with the software and compared side to side in ?? short axis, horizontal long axis and vertical long axis views. ? FINDINGS: ? Raw aquisition reviewed. Arms by the patient's side. ? The stress perfusion study showed ??decreased tracer uptake along the ?? inferior wall. There is improvement with CT attenuation correction ?? suggestive of diaphragmatic attenuation artifact. There is also reduced ?? tracer uptake in the mid anterior wall. No major change with CT ?? attenuation correction. The gated study shows normal LV systolic ?? function with calculated LVEF of 61%. LV cavity is normal in size. The ?? gated study shows normal ??wall thickening and contraction of segments. ? Resting study shows mildly reduced tracer uptake in the mid anterior ?? wall. There is also reduced tracer uptake along the inferior wall. In ?? the CT attenuation corrected images, there is prominent ?? subdiaphragmatic uptake. Overall, there is subdiaphragmatic uptake seen ?? during stress and rest. Gating at rest reveals normal wall motion with ?? ejection fraction at 52%. ? The findings are consistent with fixed mid anterior defect; ??inferior ?? defect difficult to assess due to subdiaphragmatic uptake. ? NM/NM cardiolite stress test ?? IMPRESSION: ? 1. ??Myocardial perfusion imaging study shows fixed mid anterior defect; ?? could reflect nontransmural infarct. Possible defect in the inferior ?? wall but difficult to assess because of subdiaphragmatic uptake. ?? Consider further testing as clinically indicated. ?? 2. ??Gated LVEF is 61% during stress and 52% during rest. ?? 3. Transient ischemic dilatation not present. ? EKG component of the test reported separately. ? Electronically signed by: ??Chin Collins MD ??04/14/2024 01:01 ?? [facility] ? Dictated By: ?Chin Collins MD ? Signed By: ?<Electronically signed by Chin Collins MD in OV> ?04/14/24 1301 ? DD/ 0933 ? TD/TT: 04/11/24 1120 ? Massage Coordinator: ? Procedure Note Brooke, Diamante - 04/14/[address] [address] Nuclear Medicine Report Signed Patient: Inderjit Stoner [facility] #: [id number] : 1Acct:[id number] Age/Sex: 63 / MADM Date: 04/10/24 Loc: ANA [facility] Attending Dr: Sharan Mariscal MD Ordering Physician: Sharan Mariscal MD Date of Service: 04/10/24 Procedure(s): PR cardiolite stress test Accession Number(s): [id number] cc: Sherri Selby MD; Sharan Mariscal MD EXERCISE MYOCARDIAL PERFUSION STUDY INDICATION: Chest pain TECHNIQUE: The patient was brought in for an exercise perfusion study on 04/10/2024. Patient performed exercise as per Saulo protocol and was injected 30 mCi of sestamibi once target heart rate was achieved. Images were obtained using the SPECT gamma camera interlaced with the gating device. Images were obtained in supine position. Resting perfusion study was performed on 04/11/2024. Patient was administered 30 mCi of sestamibi intravenously at rest. Images were then obtained in supine position. Total DLP 186 mGy-cm. Images were processed with the software and compared side to side in short axis, horizontal long axis and vertical long axis views. FINDINGS: Raw aquisition reviewed. Arms by the patient's side. The stress perfusion study showed decreased tracer uptake along the inferior wall. There is improvement with CT attenuation correction suggestive of diaphragmatic attenuation artifact. There is also reduced tracer uptake in the mid anterior wall. No major change with CT attenuation correction. The gated study shows normal LV systolic function with calculated LVEF of 61%. LV cavity is normal in size. The gated study shows normal wall thickening and contraction of segments. Resting study shows mildly reduced tracer uptake in the mid anterior wall. There is also reduced tracer uptake along the inferior wall. In the CT attenuation corrected images, there is prominent subdiaphragmatic uptake. Overall, there is subdiaphragmatic uptake seen during stress and rest. Gating at rest reveals normal wall motion with ejection fraction at 52%. The findings are consistent with fixed mid anterior defect; inferior defect difficult to assess due to subdiaphragmatic uptake. PR/PR cardiolite stress test IMPRESSION: 1. Myocardial perfusion imaging study shows fixed mid anterior defect; could reflect nontransmural infarct. Possible defect in the inferior wall but difficult to assess because of subdiaphragmatic uptake. Consider further testing as clinically indicated. 2. Gated LVEF is 61% during stress and 52% during rest. 3. Transient ischemic dilatation not present. EKG component of the test reported separately. Electronically signed by: Chin Collins MD 04/14/2024 01:01 PM [facility] Dictated By: Chin Collins MD Signed By: <Electronically signed by Chin Collins MD inOV> 04/14/24 1301 DD/ 0933 TD/TT: 04/11/24 1120 Massage Coordinator: [facility] External Provider CV STRE SS PROCEDURES Final Result [facility] [address] [place] [address] * (ABNORMAL) Protein Electrophoresis and Total Protein, Random Urine (03/30/2024 7:30 AM EST) PEU-Random Urine Creatinine 69 20 - 320 mg/dL [facility] PEU-Random Urine Protein 4(A) 5 - 25 mg/dL [facility] PEU-[place]. Prot/Creat Ratio 58 25 - 148 mg/g creat [facility] PEU-Random Urine Albumin 100 % [facility] PEU-Random Urine A1 Globulin 0 % [facility] PEU-Random Urine A2 Globulin 0 % [facility] PEU-Random Urine Beta Globulin 0 % [facility] PEU-Random Ur. Gamma Globulin 0 % [facility] PEU Ran-Abn Protein Band 1 TNP [facility] PEU Ran-Abn Protein Band 2 TNP [facility] PEU Ran-Abn Protein Band 3 [facility] PEU-Random Urine Interpret. SEE NOTE [facility] Comment:Normal PatternThe sy pplier of the testing reagents for this assay haschanged. Detection of small monoclonal proteins mayvary by test system. Urine immunofixation is suggestedif clinically indicated and not already ordered.THIS TEST WAS PERFORMED AT:[email or web address] [place] [phone] MONTANA MD Protein/Creatinine Ratio 0.058 0.025 - 0.148 [facility] Comment:Result Units: mg/mg creat 03/30/2024 7:30 AM EST 03/30/2024 11:41 AM EST us Sherri Navarro MD LAB URINE ORDERAB LES Final Result Performing Organization Address [facility]/ZIP Co de Phone Number [facility] [address] [place] [phone] * TSH with Reflex to Free T4 (03/19/2024 11:05 AM EST) TSH reflex Free T4 2.23 0.32 - 4.0 uIU/mL [facility] Blood 03/19/2024 11:0 5 AM EST 03/19/2024 11:05 AM EST us Sherri Navarro MD LAB BLOOD ORDERAB LES Final Result Performing Organization Address [facility] Co de Phone Number [facility] [address] [place] [phone] * (ABNORMAL) Protein Electrophoresis and [place]/Lambda Light Chains (03/19/2024 11:05 AM EST) Prot Elec - Total Protein 6.7 6.1 - 8.1 g/dL [facility] Prot Elec - Albumin 4.1 3.8 - 4.8 g/dL [facility] Prot Elec - Alpha1 0.2 0.2 - 0.3 g/dL [facility] Prot Elec - Alpha2 0.6 0.5 - 0.9 g/dL [facility] Prot Elec - Beta 1 0.5 0.4 - 0.6 g/dL [facility] Prot Elec - Beta 2 0.6(A) 0.2 - 0.5 g/dL [facility] Prot Elec - Gamma 0.7(A) 0.8 - 1.7 g/dL [facility] PES - Abn Protein Band 1 SEE NOTE NONE DETECTED g/dL [facility] Comment:See below PES-Abn Protein Band 2 [facility] PES-Abn Protein Band 3 [facility] Prot Elec - Interpretation SEE NOTE [facility] Comment:Electrophoretic stud ies reveal an isolated elevationof beta-2 globulins. This pattern is suggestive ofacute inflammation; however, the presence of amonoclonal protein cannot be ruled out. Consider serumimmunofixation to rule out monoclonal protein (if notalready ordered).THIS TEST WAS PERFORMED AT:[email or web address] [place] [phone] MONTANA MD 03/19/2024 11:0 5 AM EST 03/19/2024 11:05 AM EST Sherri Navarro MD LAB BLOOD ORDERAB LES Final Result Performing Organization Address [facility] Co de Phone Number [facility] [address] [place] [phone] * Iron And Total Iron Binding Capacity (03/19/2024 11:05 AM EST) Iron 65 45 - 160 mcg/dL [facility] Total Iron Binding Capacity 283 228 - 428 mcg/dL [facility] Percent Iron Saturation 23 15 - 50 % [facility] Unsaturated Iron Binding 218 ug/dL [facility] Blood Venous blood specimen / Unknown 03/19/2024 11:05 AM EST 03/19/2024 11:05 AM EST Sherri Navarro MD LAB BLOOD ORDERAB LES Final Result Performing Organization Address [facility] Co de Phone Number [facility] [address] [place] [phone] * (ABNORMAL) CBC (03/19/2024 11:05 AM EST) White Blood Count 3.8(L) 4.8 - 10.8 X10*3/uL [facility] Red Blood Count 5.29 4.60 - 5.80 X10*6/uL [facility] Hemoglobin 14.6 14.0 - 18.0 g/dl [facility] Hematocrit 44.3 42.0 - 52.0 % [facility] Mean Corpuscular Volume 83.7 80.0 - 98.0 fL [facility] Mean Corpuscular Hemoglobin 27.6 27.0 - 33.0 pg [facility] Mean Corpuscular HGB Conc 33.0 31.0 - 36.0 g/dl [facility] Red Cell Distribution Width 13.3 11.0 - 16.0 % [facility] Platelet Count 174 160 - 400 X10*3/uL [facility] Mean Platelet Volume 10.0 9.4 - 12.4 fL [facility] NRBC Pct Auto 0.0 0.0 - 0.2 /100WBC [facility] NRBC Abs Auto 0.000 0.0 - 0.012 X10*3/uL [facility] Blood Venous blood specimen / Unknown 03/19/2024 11:05 AM EST 03/19/2024 11:05 AM EST us Sherri Navarro MD LAB BLOOD ORDERAB LES Final Result [facility] [address] [place] [phone] * (ABNORMAL) Immunofixation, Serum (03/19/2024 11:05 AM EST) IMMUNOGLOBULIN G 995 600 - 1540 mg/dL [facility] IMMUNOGLOBULIN A 330(A) 70 - 320 mg/dL [facility] Immunoglobulin M 53 50 - 300 mg/dL [facility] Comment:THIS TEST WAS PERFOR MED AT:[email or web address] [place] [phone] MONTANA MD Immunofixation Result SEE NOTE [facility] Comment:Faint free monoclona l kappa band present. Blood Venous blood specimen / Unknown 03/19/2024 11:05 AM EST 03/19/2024 11:05 AM EST us Sherri Navarro MD LAB BLOOD ORDERAB LES Final Result Performing Organization Address City/[facility]/ZIP Co de Phone Number [facility] [address] [place] [phone] * C-reactive Protein (03/19/2024 11:05 AM EST) C Reactive Protein <0.04 < or = 0.50 mg/dL [facility] 03/19/2024 11:0 5 AM EST 03/19/2024 11:05 AM EST us Generic External Data Provider LAB BLOOD ORDERAB LES Final Result Performing Organization Address [facility] Co de Phone Number [facility] [address] [place] [address] [phone] * PSA,Total (03/19/2024 11:05 AM EST) Prostate Specific Antigen 2.30 <0.05 - 4.0 ng/mL [facility] Comment:PSA methodology: Lily Anglin i ChemiluminescentMicroparticle Immunoassay (CMIA) 03/19/2024 11:0 5 AM EST 03/19/2024 11:05 AM EST us Generic External Data Provider LAB BLOOD ORDERAB LES Final Result Performing Organization Address [facility] Co de Phone Number [facility] [address] [place] [address] [phone] * Ferritin (03/19/2024 11:05 AM EST) Ferritin 145 20 - 250 ng/mL [facility] Blood Venous blood specimen / Unknown 03/19/2024 11:05 AM EST 03/19/2024 11:05 AM EST us Sherri Navarro MD LAB BLOOD ORDERAB LES Final Result Performing Organization Address City/[facility]/ZIP Co de Phone Number [facility] [address] [place] [phone] * (ABNORMAL) Lipid Panel, Standard (03/19/2024 11:05 AM EST) Triglycerides 137 <150 mg/dL [facility] Comment:Desirable Triglyceri de: less than 150 mg/dLBorderline High Triglyceride 150-199 mg/dLHigh Triglyceride: 200-499 mg/dLVery High Triglyceride: greater than or equal to 5OO mg/dL Cholesterol 143 <200 mg/dL [facility] Comment:Desirable Cholestero l: less than 200 mg/dLBorderline High Cholesterol: 200-239 mg/dLHigh Cholesterol: greater than 239 mg/dL LDL Cholesterol Calculated 76 <100 mg/dL [facility] Comment:Desirable LDL: less than 100 mg/dLNear Optimal/Above Optimal LDL: 110- 129 mg/dLBorderline High LDL: 130-159 mg/dLHigh LDL: 160-189 mg/dLVery High LDL: greater than or equal to 190 mg/dL HDL Cholesterol 40(L) >40 mg/dL [facility] Comment:Desirable HDL: great er than 40 mg/dL Note: This HDL assay may give artificially low results in patients with liver disease. Blood Venous blood specimen / Unknown 03/19/2024 11:05 AM EST 03/19/2024 11:05 AM EST us Sherri Navarro MD LAB BLOOD ORDERAB LES Final Result [facility] [address] [place] [phone] * (ABNORMAL) Comprehensive Metabolic Panel (03/19/2024 11:05 AM EST) Sodium 139 135 - 145 mmol/L [facility] Potassium 3.9 3.3 - 5.1 mmol/L [facility] Chloride 110(H) 96 - 108 mmol/L [facility] Carbon Dioxide 21(L) 22 - 29 mmol/L [facility] Anion Gap 12 12 - 20 [facility] Urea Nitrogen (BUN) 12 9 - 16 mg/dL [facility] Creatinine, Serum 0.91 0.5 - 1.4 mg/dL [facility] Estimated Glomerular Filt Rate >60 [facility] Comment:NOTE: For -Am erican individuals, multiply the result by 1.210.Chronic Kidney Disease: Estimated GFR < 60 mL/min/1.48k4Kduyfl Kidney Disease: Estimated GFR < 15 mL/min/1.73m2 Glucose 101 60 - 115 mg/dL [facility] Calcium 9.2 8.4 - 10.2 mg/dL [facility] Bilirubin, Total 0.7 0.0 - 1.0 mg/dL [facility] Aspartate Amino Transferase 23 5 - 37 U/L [facility] Alanine Aminotransferase 61(H) 0 - 40 U/L [facility] Total Protein 7.1 6.5 - 8.0 g/dL [facility] Albumin Level 4.2 3.5 - 5.0 g/dL [facility] Alkaline Phosphatase 94 39 - 117 U/L [facility] Blood Venous blood specimen / Unknown 03/19/2024 11:05 AM EST 03/19/2024 11:05 AM EST us Sherri Navarro MD LAB BLOOD ORDERAB LES Final Result Performing Organization Address City/State/[facility] Co de Phone Number [facility] [address] [place] [phone] * US Pelvis Limited (03/12/2024 1:26 PM EDT) Anatomical Region Laterality Modality Pelvis Ultrasound 03/12/2024 1:26 PM EDT Narrative 03/28/2024 11:22 AM EST ? [facility] ?[address] ?[place] [address] ? Ultrasound Report ? Signed ? Patient: Vincent Banks,Shemar ?MR ?? #: [id number] ? : 1960 ?Acct:[id number] ? Age/Sex: 63 / M ?ADM Date: 10/28/24 ? Loc: HO.US ? Attending Dr: Colette Cleveland SPECIAL EDUCATION INSTRUCTOR ? Ordering Physician: Holly Araujo ?? Date of Service: 03/12/24 ?? Procedure(s): US pelvic limited ?? Accession Number(s): [id number] ? cc: Holly Araujo; Sherri Selby MD ? EXAMINATION: ?? US PELVIS, LIMITED ? CLINICAL INFORMATION: ?? Swelling, mass. Evaluate for hernia. ? COMPARISON: ?? CT abdomen/pelvis dated 08/12/2023. ? TECHNIQUE: ?? Grayscale, Doppler, and cine images were obtained in the region of the ?? patient's palpable findings. ? FINDINGS: ?? In the region of the patient's palpable findings there is a slightly ?? hyperechoic, lobulated focus measuring 1.3 x 0.7 x 1.0 cm. No Doppler ?? detectable vascular flow. Findings could represent a subcutaneous ?? lipoma. ? No additional soft tissue mass or fluid collection. Unremarkable ?? bilateral inguinal lymph nodes. No significant inguinal hernia. ? US/US pelvic limited ?? IMPRESSION: ?? 1. In the region of the patient's palpable findings there is a slightly ?? hyperechoic, lobulated focus measuring 1.3 cm in the region of the ?? patient's palpable findings. Findings could represent a subcutaneous ?? lipoma. ?? 2. Otherwise, unremarkable examination. ? Electronically signed by: ??Chava Sandhu MD ??03/28/2024 11:19 AM EST ?? Workstation: [employer] ? Dictated By: ?Chava Sandhu MD ? Signed By: ?<Electronically signed by Chava Sandhu MD in OV> ?03/28/24 1119 ? DD/ 1326 ? TD/TT: 03/12/24 1331 ? Massage Coordinator: SR ? Procedure Note Diamante Cox - 03/28/[address] [address] Ultrasound Report Signed Patient: Inderjit Stoner [facility] #: [id number] : 1Acct:[id number] Age/Sex: 63 / MADM Date: 03/12/24 Loc: HO.US Attending Dr: Colette Cleveland [facility] Ordering Physician: Holly Araujo Date of Service: 03/12/24 Procedure(s): US pelvic limited Accession Number(s): [id number] cc: Holly Araujo; Sherri Selby MD EXAMINATION: US PELVIS, LIMITED CLINICAL INFORMATION: Swelling, mass. Evaluate for hernia. COMPARISON: CT abdomen/pelvis dated 08/12/2023. TECHNIQUE: Grayscale, Doppler, and cine images were obtained in the region of the patient's palpable findings. FINDINGS: In the region of the patient's palpable findings there is a slightly hyperechoic, lobulated focus measuring 1.3 x 0.7 x 1.0 cm. No Doppler detectable vascular flow. Findings could represent a subcutaneous lipoma. No additional soft tissue mass or fluid collection. Unremarkable bilateral inguinal lymph nodes. No significant inguinal hernia. US/US pelvic limited IMPRESSION: 1. In the region of the patient's palpable findings there is a slightly hyperechoic, lobulated focus measuring 1.3 cm in the region of the patient's palpable findings. Findings could represent a subcutaneous lipoma. 2. Otherwise, unremarkable examination. Electronically signed by: Chava Sandhu MD 03/28/2024 11:19 AM EST Dictated By: Chava Sandhu MD Signed By: <Electronically signed by Chava Sandhu MD in OV> 03/28/24 1119 DD/ 1326 TD/TT: 03/12/24 1331 Massage Coordinator: [facility] External Provider IMG US PROCEDURES Final Result * VASC US Carotid Artery Duplex Bilateral (03/12/2024 1:13 PM EDT) 03/12/2024 1:13 PM EDT Narrative [facility] - 03/21/2024 1:57 PM EST ? [place] [facility] ?[address] ?[place] [address] ? Ultrasound Report ? Signed ? Patient: Vincent Banks,Shemar ?MR ?? #: [id number] ? : 1960 ?Acct:[id number] ? Age/Sex: 63 / M ?ADM Date: 03/12/24 ? Loc: HO.US ? Attending Dr: Colette Cleveland SPECIAL EDUCATION INSTRUCTOR ? Ordering Physician: Sherri Selby MD ?? Date of Service: 03/12/24 ?? Procedure(s): US carotid duplex BI ?? Accession Number(s): [id number] ? cc: Sherri Selby MD ? EXAMINATION: ?? US EXTRACRANIAL CAROTID DUPLEX, BILATERAL ? CLINICAL INFORMATION: ?? calcidication of carotid arteries in CT scan of had, ,dizziness ? COMPARISON: ?? Carotid Doppler ultrasound dated 03/14/2019 ? TECHNIQUE: ?? Real-time ultrasound and Doppler techniques (integrating B-mode 2-D ?? vascular images, Doppler spectral analysis and color-flow Doppler ?? imaging) were ?? utilized to interrogate the extracranial carotid arteries, the ?? vertebral arteries and proximal subclavian arteries bilaterally. The ?? degree of stenosis is determined by criteria similar to NASCET. ? FINDINGS: ?? Right Side: ?? 1. There is mild atherosclerotic plaque seen in the ?? bifurcation/proximal ICA region. ?? 2. The common carotid artery PSV proximally is 86 cm/s and distally 56 ?? cm/s. ?? 3. The proximal internal carotid artery velocities are 53 cm/s systolic ?? and 18 cm/s diastolic. ?? 4. The proximal external carotid artery PSV is 93 cm/s. ?? 5. The vertebral artery shows antegrade flow. ?? 6. The subclavian artery waveforms are normal. ? Left Side: ?? 1. There is mild atherosclerotic plaque seen in the ?? bifurcation/proximal ICA region. ?? 2. The common carotid artery PSV proximally is 88 cm/s and distally 68 ?? cm/s. ?? 3. The proximal internal carotid artery velocities are 53 cm/s systolic ?? and 19 cm/s diastolic. ?? 4. The proximal external carotid artery PSV is 74 cm/s. ?? 5. The vertebral artery shows antegrade flow. ?? 6. The subclavian artery waveforms are normal. ? US/ carotid duplex BI ?? IMPRESSION: ?? 1. RIGHT: Minimal, non-hemodynamically significant stenosis of the ?? proximal right internal carotid artery corresponding to a 0-49% ?? stenosis by velocity criteria. ? 2. LEFT: Minimal, non-hemodynamically significant stenosis of the ?? proximal left internal carotid artery corresponding to a 0-49% stenosis ?? by velocity criteria. ? 3. There is no change in the category severity of disease when compared ?? to the previous study dated 03/14/2019. ? Electronically signed by: ??Kaitlin Alfaro MD ??03/21/2024 01:54 PM EST ?? RP ? Dictated By: ?Monika Alfaro ? Signed By: ?<Electronically signed by Monika ??Dominic in OV> ? 03/21/24 1354 ? DD/ 1313 ? TD/TT: 03/12/24 1324 ? Massage Coordinator: ? Procedure Note Donotuseinterpreter, Image - 03/21/2024 [place] [address] Ultrasound Report Signed Patient: Inderjit Stoner [facility] #: [id number] : 1960cct:[id number] Age/Sex: 63 / MADM Date: 03/12/24 Loc: HO.US Attending Dr: Colette Cleveland [facility] Ordering Physician: Sherri Selby MD Date of Service: 03/12/24 Procedure(s): US carotid duplex BI Accession Number(s): [id number] cc: Sherri Selby MD EXAMINATION: US EXTRACRANIAL CAROTID DUPLEX, BILATERAL CLINICAL INFORMATION: calcidication of carotid arteries in CT scan of had, ,dizziness COMPARISON: Carotid Doppler ultrasound dated 03/14/2019 TECHNIQUE: Real-time ultrasound and Doppler techniques (integrating B-mode 2-D vascular images, Doppler spectral analysis and color-flow Doppler imaging) were utilized to interrogate the extracranial carotid arteries, the vertebral arteries and proximal subclavian arteries bilaterally. The degree of stenosis is determined by criteria similar to NASCET. FINDINGS: Right Side: 1. There is mild atherosclerotic plaque seen in the bifurcation/proximal ICA region. 2. The common carotid artery PSV proximally is 86 cm/s and distally 56 cm/s. 3. The proximal internal carotid artery velocities are 53 cm/s systolic and 18 cm/s diastolic. 4. The proximal external carotid artery PSV is 93 cm/s. 5. The vertebral artery shows antegrade flow. 6. The subclavian artery waveforms are normal. Left Side: 1. There is mild atherosclerotic plaque seen in the bifurcation/proximal ICA region. 2. The common carotid artery PSV proximally is 88 cm/s and distally 68 cm/s. 3. The proximal internal carotid artery velocities are 53 cm/s systolic and 19 cm/s diastolic. 4. The proximal external carotid artery PSV is 74 cm/s. 5. The vertebral artery shows antegrade flow. 6. The subclavian artery waveforms are normal. US/US carotid duplex BI IMPRESSION: 1. RIGHT: Minimal, non-hemodynamically significant stenosis of the proximal right internal carotid artery corresponding to a 0-49% stenosis by velocity criteria. 2. LEFT: Minimal, non-hemodynamically significant stenosis of the proximal left internal carotid artery corresponding to a 0-49% stenosis by velocity criteria. 3. There is no change in the category severity of disease when compared to the previous study dated 03/14/2019. Electronically signed by: Kaitlin Alfaro MD 03/21/2024 01:54 PM EST Dictated By: Monika Alfaro Signed By: <Electronically signed by Monika Alfaro in OV> 03/21/24 1354 DD/ 1313 TD/TT: 03/12/24 1324 Massage Coordinator: us Sherri Navarro MD CV VASCULAR PROCE DURES Final Result [facility] [address] [place] [phone] * MR Femur w/ and w/o Contrast Left (03/10/2024 4:25 PM EDT) Anatomical Region Laterality Modality Lower Extremities, Femur Left Magneti c Resonance 03/10/2024 4:25 PM EDT Narrative 03/28/2024 11:18 AM EST ? [facility] ?[address] ?[place] [address] ? Magnetic Resonance Report ? Signed ? Patient: Vincent Banks,Shemar ?MR ?? #: [id number] ? : 1960 ?Acct:[id number] ? Age/Sex: 63 / M ?ADM Date: 03/10/24 ? Loc: HO.MRI ? Attending Dr: Sherri Navarro MD ? Ordering Physician: Sherri Selby MD ?? Date of Service: 03/10/24 ?? Procedure(s): MR femur LT wo/w con ?? Accession Number(s): [id number] ? cc: Sherri Selby MD ? EXAMINATION: ?? MR FEMUR WITHOUT AND WITH CONTRAST, LEFT ? CLINICAL INFORMATION: ?? Posterior left thigh mass. Pain. ? COMPARISON: ?? None available. ? TECHNIQUE: ?? Multisequence MR imaging of the left femur was obtained before and ?? after the IV administration of 8.5 mL Gadavist contrast on a high-field ?? strength scanner. ? FINDINGS: ? BONE: No marrow edema. No stress reaction, fracture, or avascular ?? necrosis. No concerning lytic or blastic osseous lesion. No ?? postcontrast marrow enhancement. ? MUSCLES/TENDONS: The visualized muscles and tendons are intact. No ?? edema or enhancement to suggest acute injury. ? SOFT TISSUES: Within the posterior subcutaneous tissues of the thigh ?? interposed between the overlying skin marker, there is an encapsulated ?? fat signal focus measuring approximately 1.3 x 2.6 x 1.5 cm, consistent ?? with a lipoma. No soft tissue component, edema, or enhancement to ?? suggest a more aggressive lesion. No additional soft tissue mass or ?? fluid collection. ? MR/MR femur LT wo/w con ?? IMPRESSION: ?? 1. Lipoma within the posterior subcutaneous tissues of the left thigh ?? measuring up to 2.6 cm. No soft tissue component, edema, or enhancement ?? to suggest a more aggressive lesion. ? 2. Otherwise unremarkable examination. ? Electronically signed by: ??Chava Sandhu MD ??03/28/2024 11:15 AM EST ?? RP ? Dictated By: ?Chava Sandhu MD ? Signed By: ?<Electronically signed by Chava Sandhu MD in OV> ?03/28/24 1115 ? DD/ 1625 ? TD/TT: 03/10/24 1700 ? Massage Coordinator: SR ? Procedure Note Donotuseinterpreter, Image - 03/28/[address] [address] Magnetic Resonance Report Signed Patient: Inderjit Stoner [facility] #: [id number] : 1960cct:[id number] Age/Sex: 63 / MADM Date: 03/10/24 Loc: HO.MRI Attending Dr: Sherri Navarro MD Ordering Physician: Sherri Selby MD Date of Service: 03/10/24 Procedure(s): MR femur LT wo/w con Accession Number(s): [id number] cc: Sherri Selby MD EXAMINATION: MR FEMUR WITHOUT AND WITH CONTRAST, LEFT CLINICAL INFORMATION: Posterior left thigh mass. Pain. COMPARISON: None available. TECHNIQUE: Multisequence MR imaging of the left femur was obtained before and after the IV administration of 8.5 mL Gadavist contrast on a high-field strength scanner. FINDINGS: BONE: No marrow edema. No stress reaction, fracture, or avascular necrosis. No concerning lytic or blastic osseous lesion. No postcontrast marrow enhancement. MUSCLES/TENDONS: The visualized muscles and tendons are intact. No edema or enhancement to suggest acute injury. SOFT TISSUES: Within the posterior subcutaneous tissues of the thigh interposed between the overlying skin marker, there is an encapsulated fat signal focus measuring approximately 1.3 x 2.6 x 1.5 cm, consistent with a lipoma. No soft tissue component, edema, or enhancement to suggest a more aggressive lesion. No additional soft tissue mass or fluid collection. MR/MR femur LT wo/w con IMPRESSION: 1. Lipoma within the posterior subcutaneous tissues of the left thigh measuring up to 2.6 cm. No soft tissue component, edema, or enhancement to suggest a more aggressive lesion. 2. Otherwise unremarkable examination. Electronically signed by: Chava Sandhu MD 03/28/2024 11:15 AM [facility] Dictated By: Chava Sandhu MD Signed By: <Electronically signed by Chava Sandhu MD in OV> 03/28/24 1115 DD/ 1625 TD/TT: 03/10/24 1700 Massage Coordinator: Sherri Navarro MD IMG MRI PROCEDURE S Final Result * Fecal Globin by Immunochemistry (03/07/2024 12:00 AM EDT) Fecal Globin By Immunochemistry SEE NOTE [facility] [place] [facility] Comment: ??FECAL GLOBIN BY IMMUNOCHEMISTRY ?Micro Number: ?[id number] ??Test Status: ? Final ??Specimen Source: ?? Insure (tm) fobt test card ??Specimen Quality: ??Adequate ??Fecal Globin: ?Not Detected 03/07/2024 03/15/2024 5:1 8 AM EDT Narrative [facility] - 03/15/2024 4:25 PM EDT FASTING: UNKNOWN [facility] External Provider LAB BODY FLUIDS AND STOOLS ORDERABLES Final Result Performing Organization Address City/[facility]/ZIP Co de Phone Number [facility] [address], [place] [address] [facility] [place] [facility] [address] [place] [address] * Hepatitis C Antibody with Reflex to HCV, RNA, Quantitative, Real-Time PCR (11/16/2023 12:08 PM EDT) Hepatitis C Antibody Nonreactive Nonreactive [facility] Comment:Antibodies to HCV no t detected; does not exclude early acuteHCV infection. Blood Venous blood specimen / Unknown 11/16/2023 12:08 PM EDT 11/16/2023 12:08 PM EDT us Sherri Navarro MD LAB BLOOD ORDERAB LES Final Result [facility] [address] [place] [phone] * HIV-1/2 Antigen and Antibodies, Fourth Generation, with Reflexes (11/16/2023 12:08 PM EDT) HIV AB/AG Nonreactive Nonreactive [facility] Comment:HIV-1 p24 Ag and/or HIV-1/HIV-2 Ab not detected.A test result that is nonreactive does not exclude thepossibility of exposure to or infection with HIV-1 and/orHIV-2. Nonreactive results in this assay for individualswith prior exposure to HIV-1 and/or HIV-2 may be due toantigen and antibody levels that are below the limit ofdetection of this assay.The RUNform HIV Ag/Ab Combo assay result andsupplemental assay results should be interpreted inconjunction with the patient's clinical presentation,history and other laboratory results. If the results areinconsistent with clinical evidence, additional testing issuggested to confirm the result. Blood Venous blood specimen / Unknown 11/16/2023 12:08 PM EDT 11/16/2023 12:08 PM EDT us Sherri Navarro MD LAB BLOOD ORDERAB LES Final Result [facility] [address] [place] [phone] * Hemoglobin A1c (11/16/2023 12:08 PM EDT) Hemoglobin A1c 5.8 <6.0 % [facility] Comment:Hemoglobin A1C Refer ence Range Adults: 4.8 - 6.0 % Non diabetic: < 6.0 % Goal: < 7.0 %Additional Action Suggested: > 8.0 %Note: Hemoglobin A1c results are invalid for patients with abnormal amounts of HbF. Blood transfusions may impact the HbA1c concentration in the patient sample. Estimated Average Glucose 120 mg/dL [facility] Comment:eAG = Estimated ave rage glucose which is %A1C expressed asaverage glucose, using the formula of the M4S-MoqwgykUrpkvxr Glucose study (ADAG), Diabetes Care, Vol.31,#8,2007 Blood Venous blood specimen / Unknown 11/16/2023 12:08 PM EDT 11/16/2023 12:08 PM EDT Sherri Navarro MD LAB BLOOD ORDERAB LES Final Result Performing Organization Address City/State/[facility] Co de Phone Number [facility] [address] [place] [address] [phone] from Last 3 Months or Most Recently Relevant to Health Maintenance Insurance [facility] - [facility] Care Teams Chemical Plant Operator Supervisor Relationship Specialty Start Date End Date Sherri Selby MD [address] [place] [phone] PCP - General Internal Medicine 02/02/23
--- OUTSIDE RECORDS SUMMARY | 2024-06-06 14:27 | XMS_ITS | Encounter Summary ---
Author Organization [employer] [facility] Address [address] [place] [address] [address] [place] [address] Care Team Providers Care Fruit Worker Name Role Phone Funmi Easton MD Primary Care Provider Lorenza Stroud Primary Care Provider [phone] Sherri Selby MD Primary Care Pro vider Encounter Details Date Type Department Care Team (Latest Contact Info) Description 05/02/2019 Abstract [facility] CONVERSIONS Dental, Provider, DDS Social History [...] Description 06/08/2024 2:00 PM EST Nurse Only [facility] [address] [place] [address] documented as of this encounter Visit Diagnoses Not on filedocumented in this encounter Care Teams Fruit Worker Relationship Specialty Start Date End Date Funmi Easton MD PCP - General Family Medicine 03/20/19 04/04/22 Lorenza Hodge FNP PCP - General Family Medicine 04/05/22 02/01/23 Sherri eSlby MD [address] [place] [address] PCP - General Internal Medicine 02/02/23 documented as of this encounter
--- OUTSIDE RECORDS SUMMARY | 2024-06-06 14:27 | XMS_ITS | Encounter Summary ---
Author Organization [employer] [facility] Address [address] [place] [address] 7 [place] [address] Care Team Providers Care Mobile Tester Name Role Phone Funmi Easton MD Primary Care Provider Lorenza Stroud Primary Care Provider [phone]- [phone] Sherri Selby MD Primary Care Pro vider Encounter Details Date Type Department Care Team (Latest Contact Info) Description 03/23/2021 Abstract [facility] CONVERSIONS Dental, Provider, DDS Social History [...] Description 06/08/2024 2:00 PM EST Nurse Only [facility] [address] [place] [address] documented as of this encounter Visit Diagnoses Not on filedocumented in this encounter Care Teams Mobile Tester Relationship Specialty Start Date End Date Funmi Easton MD PCP - General Family Medicine 03/20/19 04/04/22 Lorenza Hodge FNP PCP - General Family Medicine 04/05/22 02/01/23 Sherri Selby MD [address] [place] [phone] PCP - General Internal Medicine 02/02/23 documented as of this encounter
== END ==
LOC: HO.CARD 12:40
PROVIDERS: PCP Student in an Organized Health Care Education/Training Program
DX: R00.2 Palpitations (principal)
CPT/HCPCS: 93242

== ENCOUNTER → 2024-06-06 12:43 | Outpatient (BNV) | payer OTHER, SELFPAY | PROVIDERS: PCP Student in an Organized Health Care Education/Training Program; Visit Provider Internal Medicine | DX: I47.10 Supraventricular tachycardia, unspecified (principal) | CPT/HCPCS: 93248 ==

== ENCOUNTER 2024-06-12 06:22 | Outpatient (REF) | payer OTHER, SELFPAY ==
--- NOTE | ~2024-06-12 | FL_ITS ---
EXAMINATION: FL GUIDANCE ONLY HISTORY: M54.16 - Radiculopathy, lumbar region COMPARISON: None available. TECHNIQUE: Fluoroscopy time: 0.4 minutes. Cumulative Dose: 14.4 mGy. DAP: 0.0250 uGy-m2 (microgray-meter squared). Images: 2. FINDINGS: Images demonstrate a needle and contrast in the region of the left L5-S1 facet joint. FL/FL guidance in treatment room IMPRESSION: Fluoroscopy during procedure. Please see procedure report for additional information. Electronically signed by: Carlton Raya MD 06/13/2024 07:37 AM EST
== END 2024-06-12 06:23 | disposition home or self-care (01) ==
LOC: CF 06:22
PROVIDERS: Visit Provider Anesthesiology
DX: M54.16 Radiculopathy, lumbar region (principal)
CPT/HCPCS: 64483; J2003; J3301; Q9967

== ENCOUNTER 2024-06-12 10:49 | Outpatient (AMB) | payer OTHER, SELFPAY ==
[2024-06-12 10:55] VITALS: BP 89/58; PULSE 69; RESP 16; O2SAT 98
--- NOTE | 2024-06-12 10:55 | A.OFFVIS_ITS ---
Vital Signs 06/12/24 10:55 06/12/24 11:37 BP 89/58 L 136/70 Blood Pressure Location Lt brachial Lt brachial Position Sitting Sitting Respiration 16 16 Pulse 69 75 Pulse Source Pulse Oximeter Pulse Oximeter Pulse Oximetry (%) 98 97 Oxygen Delivery Method Room Air Room Air Intake Visit Reasons: LEFT L5, S1 TFESI Allergies No Known Allergies Allergy (Verified 06/12/24 10:56) Medication List - Last Reconciled 06/12/24 by Jyoti Farley LPN aspirin 81 mg PO QAM atorvastatin 80 mg PO BEDTIME famotidine 40 mg PO BEDTIME finasteride 5 mg PO DAILY 90 days fluoxetine 80 mg PO DAILY levetiracetam 500 mg PO BID linaclotide (Linzess) 290 mcg PO QAM mpycjcnnuejq-vbjq-ihyxk acid 18-400 mg-mcg (Certavite-Antioxidant) tabs PO cvssggkpyhvb-cgpy-orxrh acid 18-400 mg-mcg (Certavite-Antioxidant) 1 tab PO QAM nitroglycerin 0 mg sublingual primidone 50 mg PO BEDTIME terazosin 5 mg PO BEDTIME 90 days topiramate XR 25 mg PO DAILY PFSH Medical History CAD (coronary artery disease) Surgical History Hx of colonoscopy History of esophagogastroduodenoscopy (EGD) Family History Father Cancer Throat cancer Mother Cancer Sister FH: kidney cancer Breast cancer Social History Alcohol intake: never Patient Tobacco Use Status: Never used Tobacco Advance Directives Date on File: 02/25/21 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 Gender identity: Male Physical Exam Vital Signs: Last Vital Signs Pulse 75 06/12/24 11:37 Resp 16 06/12/24 11:37 BP 136/70 06/12/24 11:37 Pulse Ox 97 06/12/24 11:37 Oxygen Delivery Method Room Air 06/12/24 11:37 Assessment & Plan Assessment & Plan (1) Post laminectomy syndrome: Code(s): M96.1 - Postlaminectomy syndrome, not elsewhere classified Category: Medical (2) Lumbar radiculopathy: Code(s): M54.16 - Radiculopathy, lumbar region Category: Medical Plan Tansforaminal left L5-S1 epidural steroid injection . Informed consent was thoroughly explained to the patient before the procedure.? The patient came to the operating room.? He was positioned prone on operating ta ble with a pillow under his abdomen.? Time-out was performed delineating correct site and side of the procedure, nature of the injection, name and date of of the patient. The lower back of the patient was prepped with ChloraPrep and draped with sterile utility towels.? C-arm was brought over the operating field and sq picture of L5 was demonstrated on the screen.? The left side was chosen as the side of the injection.? Tilting machine ipsilateral to the left at the level of L5 1st the most prominent picture of the left superior articular process was obtained on the screen.? Lateral border of the left superior articular process on the oblique view was chosen as the site of the injection. This point projection to the skin was injected with small amount of lidocaine 1% 3cc to anesthetize the skin.? After that 5 in 22 gauge Quincke point needle was inserted through the skin wheal and was advanced toward the lateral border of the superior articular process of L5 foramina on anterior posterior , lateral and oblique views intermittently.? When needle gently touched the bone the tip of the needle was deviated laterally advanced few mm and immediately after that deviated medially. At that point lateral view was obtained demonstrating tip of the needle at the most superior and lateral portion of the foramina. After that the projection of the sq AP view was demonstrated on the screen and injection of the contrast was performed delineating epidural spread of the contrast. No intravascular, no intra neuro and no intrathecal spread of the contrast was noted. After that injection of the 3 cc of lidocaine 1% mixed with Kenalog 40 mg was performed into the needle. Upon completion of the injection needle was removed and sterile Band-Aid was applied. Patient tolerated the procedure well. Orders: Orders FL guidance in treatment room Today M54.16 - Radiculopathy, lumbar region Coding Level of Care Code Procedure Only Diagnoses Post laminectomy syndrome M96.1 Lumbar radiculopathy M54.16
[2024-06-12 11:37] VITALS: BP 136/70; PULSE 75; RESP 16; O2SAT 97
--- OUTSIDE RECORDS SUMMARY | 2024-06-12 11:56 | XMS_ITS | Clinical Summary ---
Author Organization [employer] Address [address] [place] [address] Care Team Providers Care Drawer Maker Name Role Phone Sherri Selby MD Primary [...] 0.4 MG SL tabletIndicatio ns:Atherosclero sis of [place] coronary artery of [place] heart with stable angina pectoris (CMS/HCC) Place [...] hemorrhoids and left sided diverticulosis Atherosclerosis of [place] co ronary artery of [place] heart with stable angina pectoris 08/10/2022 Overview (11/24/2022): Cardiac hx Chest pain continued SOB Leg swelling Assessment & Plan (11/24/2022 6:12 PM EDT): Try and locate Cards notes Check BNP F/u PRN Gastroesophageal reflux disease 06/14/2022 Migraine without aura and wi thout status migrainosus, not intractable 06/07/2022 Overview (02/02/2023): Care Managed by Neurology associates [facility] - Pt has chronic left church migraine. Injury to L church about 3 years ago. 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 06/07/2022 Overview (02/02/2023): Dyscognitive seizure disorder with episodes of blurry vision and passing out Care Managed by Neurology associates [facility] Last appt 04/28/22 Treating Keppra 250mg BID [...] to locate records Gave pt card with [facility] Fax number and have all specialists fax [...] intervention and Patient to reach out to [facility] team as needed Rule Out Diagnoses [...] Encounters Date Type Department Care Team Description 06/08/2024 Telephone [facility] CHC MED & PEDS [address] [place] [address] Chrissy Olivera MA August Recall 06/06/[address] [address] Christine Moses RN ER Follow-up 05/31/2024 Orders Only GENERIC EXTERNAL DATA DEPARTMENT Provider, Generic External Data 05/31/2024 Telephone [facility] MEDICINE [address] [place] [address] Sherri Selby MD Durable Medical Equipment 04/20/[address] [address] Sherri Selby MD FYI 04/17/2024 Orders Only GENERIC EXTERNAL DATA DEPARTMENT Provider, Generic External Data 04/10/2024 Orders Only [facility] External Provider, [facility] 04/05/2024 Telephone [facility] MEDICINE [address] [facility] [place] [address] Sherri Selby MD [facility] (Nadia, the patient's daughter, is requesting [facility] to be able to care for him, due to his poor memory issues. I called him to ask for her telephone number, because the forms nurse needs more information, in order to complete the form. He provided Nadia's number, and the nurse will reach out to her today.) 04/03/2024 Telephone [facility] [address] [place] [address] Sherri Selby MD 04/03/2024 Telephone [facility] [address] [facility] [place] [address] Sherri Selby MD 04/02/2024 Telephone [facility] [address] [facility] [place] [address] Sherri Selby MD 03/30/2024 Orders Only [facility] [address] [facility] [place] [address] Sherri Selby MD 03/29/2024 Orders Only [facility] [address] [facility] [place] [address] Sherri Selby MD Lipoma of lower extremity, unspecified laterality (Primary Dx) 03/29/2024 Telephone [facility] [address] [place] [address] Mirta Hernandez, RN Results 03/28/2024 10:15 AM EST Office Visit [facility] [address] [facility] [place] [address] Sherri Selby MD Lumbar post-laminectomy syndrome (Primary Dx); Leukopenia, unspecified type; Neuropathy; Abnormal SPEP; Left lower quadrant abdominal pain; Health care maintenance; Mixed hyperlipidemia; Poor memory; Skin lumps; TIA (transient ischemic attack) 03/28/2024 Travel 03/26/2024 Telephone [facility] [address] [facility] [place] [address] Chrissy Olivera MA chart prep 03/20/[address] [place] [address] Chrissy Olivera MA walked in 03/19/2024 Orders Only GENERIC EXTERNAL DATA DEPARTMENT Provider, Generic External Data 03/12/2024 Orders Only [facility] External Provider, [facility] from Last 3 Months Immunizations Name Administration [...] Care Team (Late st Contact Info) Description 06/26/2024 1:00 PM EST Office Visit [facility] ADULT DENTAL [address] [place] [address] [phone] Divina Vickers [address] [place] [address] [phone] 08/17/2024 9:00 AM EDT Office Visit [facility] MEDICINE [address] [place] [address] [phone] Sherri Selby MD [address] [place] [address] [phone] Health Maintenance Due Date Last Done Comments CT Colonography 1960 Colonoscopy 1960 FIT DNA/Cologuard 1960 Sigmoidoscopy 1960 Pneumococcal Vaccine: Pediatrics (0 to 5 Years) and At-Risk Patients (6 to 64 Years) (1 of 2 - PCV) 1966 Dental Oral Exam 09/23/2023 03/24/2023, 03/2022, 05/02/2019, Additional history exists Dental X-Ray: Bitewings 03/25/2024 03/24/20 23, 12/24/2021, 03/23/2021, Additional history exists Dental Prophylaxis [...] BILATERAL Routine 03/12/2024 1:13 PM EDT Dizziness FECAL GLOBIN BY IMMUNOCHEMISTRY Routine 03/07/2024 12:00 [...] EST Narrative 05/31/2024 3:51 PM EST ? [facility] ?[address] ?[place] [address] ? CT Scan Report ? Signed ? Patient: Vincent Banks,Shemar ?MR ?? #: [id number] ? : 1960 ?Acct:[id number] ? Age/Sex: 63 / M ?ADM Date: 01/16/25 ? Loc: HO.ED ? Attending Dr: ? Ordering Physician: Delgadillo,Tala PA ?? Date of Service: 05/31/24 ?? Procedure(s): CT cervical spine wo IV con ?? Accession Number(s): [id number] ? cc: Tala Delgadillo; Sherri Selby MD ? Report Number: ?? [id number]: Total DLP = ??591.42 mGy-cm ?? EXAMINATION: [...] DD/ 1439 ? TD/TT: 05/31/24 1517 ? Consumer Loan Officer: ? Procedure Note Brooke, Diamante - 05/31/[address] [address] [address] Scan Report Signed Patient: Inderjit Stoner [facility] #: [id number] : 1960cct:[id number] Age/Sex: 63 / MADM Date: 05/31/24 Loc: HO.ED Attending Dr: Ordering Physician: Tala Delgadillo Date of Service: 05/31/24 Procedure(s): CT cervical spine wo IV con Accession Number(s): [id number] cc: Tala Delgadillo; Sherri Selby MD Report Number: [id number]: Total DLP = 591.42 mGy-cm EXAMINATION: CT [...] by: Blu Farrell MD 05/31/2024 03:48 PM [facility] Dictated By: Blu Mijares MD Signed By: <Electronically signed by Blu Moses MDin OV> 05/31/24 1548 DD/ 1439 TD/TT: 05/31/24 1517 Consumer Loan Officer: [facility] External Provider IMG CT PROCEDURES Final Result * CTA Head Neck w/ and w/o Contrast (05/31/2024 2:39 PM EST) Anatomical Region Laterality Modality Head, Neck Computed Tomogra phy 05/31/2024 2:39 PM EST Narrative 05/31/2024 4:04 PM EST ? [facility] ?[address] ?[place] [address] ? CT Scan Report ? Signed ? Patient: Inderjit Stoner ?MR ?? #: [id number] ? : 1960 ?Acct:[id number] ? Age/Sex: 63 / M ?ADM Date: 05/31/24 ? Loc: HO.ED ? Attending Dr: ? Ordering Physician: Tala Delgadillo ?? Date of Service: 05/31/24 ?? Procedure(s): CT angio head neck ?? Accession Number(s): [id number] ? cc: Tala Delgadillo; Sherri Selby MD ? Report Number: ?? [id number]: Total DLP = 2963.00 mGy-cm ?? EXAMINATION: [...] The data was ?? processed at the learning technologist's workstation for generation of MIP ?? [...] segment is diminutive. ?? origin of the JANITOR with robust opacification of the posterior ?? communicating artery. Normal opacification of the distal JANITOR segments. ?? -LEFT POSTERIOR CEREBRAL ARTERY: Normal P1 segment. Normal ?? opacification of the distal JANITOR segments. ?? -POSTERIOR COMMUNICATING ARTERIES: Left is [...] DD/ 1439 ? TD/TT: 05/31/24 1515 ? Consumer Loan Officer: ? Procedure Note Donartemioter, Image - 05/31/[address] [place] [address] [address] Scan Report Signed Patient: Inderjit Stoner [facility] #: [id number] : 1960cct:[id number] Age/Sex: 63 / MADM Date: 05/31/24 Loc: HO.ED Attending Dr: Ordering Physician: Tala Delgadillo Date of Service: 05/31/24 Procedure(s): CT angio head neck Accession Number(s): [id number] cc: Tala Delgadillo; Sherri Selby MD Report Number: [id number]: Total DLP = 2963.00 mGy-cm EXAMINATION: CT [...] obtained. The data was processed at the learning technologist's workstation for generation of MIP sequences. [...] P1 segment is diminutive. origin of the JANITOR with robust opacification of the posterior communicating artery. Normal opacification of the distal JANITOR segments. -LEFT POSTERIOR CEREBRAL ARTERY: Normal P1 segment. Normal opacification of the distal JANITOR segments. -POSTERIOR COMMUNICATING ARTERIES: Left is not [...] by: Osmin Lainez MD 05/31/2024 04:01 PM [facility] Dictated By: Osmin Lainez MD Signed By: <Electronically signed by Osmin Lainez MD in OV> 05/31/24 1601 DD/ 1439 TD/TT: 05/31/24 1515 Consumer Loan Officer: [facility] External Provider IMG CT PROCEDURES Final Result * SARS-CoV-2 RNA, Influenza A/B, and RSV RNA, Ql NAAT (05/31/2024 1:49 PM EST) Influenza A PCR NEGATIVE Negative [facility] Influenza B PCR NEGATIVE Negative [facility] Resp Syncy Virus RNA Qual PCR NEGATIVE Negative [facility] SARS COV2 PCR NEGATIVE Negative [facility] Comment:All test results mus t [...] use by authorized laboratories.Testing performed on the [employer] GeneXpert utilizingreal-time RT-PCR.All SARS CoV2 and positive influenza A/B results arereported to [facility]. 05/31/2024 1:49 PM EST 05/31/2024 2:25 PM EST Generic External Data Provider LAB MICROBIOLOGY - GENERAL ORDERABLES Final Result [facility] [address] [place] [phone] * High Sensitivity Troponin I (05/31/2024 1:41 PM EST) TROPONIN I HIGH SENSITIVITY <2.7 <3.5 - 35.0 ng/L [facility] Comment:The Martinez high sens itivity Troponin-I results should beused in conjunction with other diagnostic information suchas ECG, clinical observations and information, and patientsymptoms to aid in the diagnosis of [place]. 05/31/2024 1:41 PM EST 05/31/2024 1:44 PM EST us Generic External Data Provider LAB BLOOD ORDERAB LES Final Result [facility] [address] [place] [address] [phone] * CBC auto differential (05/31/2024 1:41 PM EST) White Blood Count 5.3 4.8 - 10.8 X10*3/uL [facility] Red Blood Count 5.32 4.60 - 5.80 X10*6/uL [facility] Hemoglobin 14.7 14.0 - 18.0 g/dl [facility] Hematocrit 45.4 42.0 - 52.0 % [facility] Mean Corpuscular Volume 85.3 80.0 - 98.0 fL [facility] Mean Corpuscular Hemoglobin 27.6 27.0 - 33.0 pg [facility] Mean Corpuscular HGB Conc 32.4 31.0 - 36.0 g/dl [facility] Red Cell Distribution Width 13.2 11.0 - 16.0 % [facility] Platelet Count 176 160 - 400 X10*3/uL [facility] Mean Platelet Volume 9.8 9.4 - 12.4 fL [facility] Neutrophils Percent Auto 70.4 45 - 73 % [facility] Imm Gran Pct Auto 0.4 0.0 - 0.4 % [facility] Lymphocytes Percent Auto 23.3 20 - 40 % [facility] Monocytes Percent Auto 4.9 2 - 11 % [facility] Eosinophils Percent Auto 0.6 0 - 4 % [facility] Basophils Percent Auto 0.4 0 - 2 % [facility] NRBC Pct Auto 0.0 0.0 - 0.2 /100WBC [facility] Neutrophils Absolute Auto 3.7 2.0 - 8.3 x10*3/uL [facility] Imm Gran Abs Auto 0.02 0.00 - 0.03 X10*3/uL [facility] Lymphocytes Absolute Auto 1.2 1.2 - 4.9 X10*3/uL [facility] Monocytes Absolute Auto 0.3 0.1 - 1.2 X10*3/uL [facility] Eosinophils Absolute Auto 0.0 0.0 - 0.4 X10*3/uL [facility] Basophils Absolute Auto 0.0 0.0 - 0.2 X10*3/uL [facility] NRBC Abs Auto 0.000 0.0 - 0.012 X10*3/uL [facility] 05/31/2024 1:41 PM EST 05/31/2024 1:44 PM EST us Generic External Data Provider LAB BLOOD ORDERAB LES Final Result Performing Organization Address [facility]/ZIP Co de Phone Number [facility] [address] [place] [phone] * Levetiracetam (05/31/2024 1:41 PM EST) Levetiracetam 10.9 6.0 - 46.0 mcg/mL [facility] Comment:Brivaracetam (Brivia ct(R), Rikelta(R)) exhibitssignificant cross- reactivity in the Levetiracetam(Keppra(R), Spritam(R)) immunoassay. If Brivaracetamhas been prescribed, order test code [id number] by LCMSMS.THIS TEST WAS PERFORMED AT:[id number] [place] [address]ZRVJZNC W. MASON,MD,PHD 05/31/2024 1:41 PM EST 05/31/2024 1:44 PM EST us Generic External Data Provider LAB BLOOD ORDERAB LES Final Result Performing Organization Address [facility]/ZIP Co de Phone Number [facility] [address] [place] [phone] * Partial Thromboplastin Time, Activated (APTT) (05/31/2024 1:41 PM EST) Partial Thromboplastin Time 28.1 26.0 - 36.8 SEC [facility] Comment:For information rega rding the monitoring of direct thrombininhibitors, please refer to Pharmacy. 05/31/2024 1:41 PM EST 05/31/2024 1:44 PM EST Generic External Data Provider LAB BLOOD ORDERAB LES Final Result [facility] [address] [place] [phone] * Prothrombin Time-INR (05/31/2024 1:41 PM EST) Prothrombin Time 12.1 10.9 - 12.4 SEC [facility] INTERNATIONAL NORM RATIO 1.0 0.9 - 1.1 [facility] Comment:INTERNATIONAL NORMAL IZED RATIO (INR) [...] ORDERAB LES Final Result Performing Organization Address [facility]/ZIP Co de Phone Number [facility] [address] [place] [phone] * Magnesium (05/31/2024 1:41 PM EST) Magnesium 2.0 1.6 - 2.6 mg/dL [facility] 05/31/2024 1:41 PM EST 05/31/2024 1:44 PM EST Generic External Data Provider LAB BLOOD ORDERAB LES Final Result Performing Organization Address [facility] Co de Phone Number [facility] [address] [place] [address] [phone] * (ABNORMAL) Hepatic Function Panel (05/31/2024 1:41 PM EST) Bilirubin, Total 1.0 0.0 - 1.0 mg/dL [facility] Bilirubin, Direct 0.3 0.0 - 0.5 mg/dL [facility] Aspartate Amino Transferase 28 5 - 37 U/L [facility] Alanine Aminotransferase 75(H) 0 - 40 U/L [facility] Total Protein 7.8 6.5 - 8.0 g/dL [facility] Albumin Level 4.4 3.5 - 5.0 g/dL [facility] Alkaline Phosphatase 96 39 - 117 U/L [facility] 05/31/2024 1:41 PM EST 05/31/2024 1:44 PM EST zanda External Data Provider LAB BLOOD ORDERAB LES Final Result Performing Organization Address [facility] Co de Phone Number [facility] [address] [place] [address] [phone] * (ABNORMAL) Basic Metabolic Panel (05/31/2024 1:41 PM EST) Sodium 141 135 - 145 mmol/L [facility] Potassium 4.4 3.3 - 5.1 mmol/L [facility] Chloride 109(H) 96 - 108 mmol/L [facility] Carbon Dioxide 27 22 - 29 mmol/L [facility] Anion Gap 9(L) 12 - 20 [facility] Urea Nitrogen (BUN) 20(H) 9 - 16 mg/dL [facility] Creatinine, Serum 1.13 0.5 - 1.4 mg/dL [facility] Creatinine Clr Calc Pharmacy 73.7 [facility] Comment:eGFR (calculated fro m the MDRD study equation) and eCrCl(calculated from the Cockcroft-Gault equation) are based ondifferent parameters and may not yield comparable results.If eCrCl result is absurd, please check patient'sheight/weight. Estimated Glomerular Filt Rate >60 [facility] Comment:Chronic Kidney Disea se: Estimated GFR < 60 mL/min/1.24q1Isgpou Kidney Disease: Estimated GFR < 15 mL/min/1.73m2 Glucose 102 60 - 115 mg/dL [facility] Calcium 9.3 8.4 - 10.2 mg/dL [facility] 05/31/2024 1:41 PM EST 05/31/2024 1:44 PM EST us Generic External Data Provider LAB BLOOD ORDERAB LES Final Result [facility] [address] [place] [phone] * Gross and Microscopic Level 3 (04/17/2024 2:00 PM EST) 04/17/2024 2:00 PM EST 04/18/2024 8:18 AM EST Narrative [facility] - 04/19/2024 4:04 PM EST ----- ------- Name: Inderjit Stoner ?Age/Sex: 63/M ? : 1960 Unit#: [id number] ?? Attend Dr: Francesco Winston MD ?Re04/17/24 ?Status: DEP REF ? Location: HO.LNP ?Disch: ? ----- ------- SPEC : [id number] ? RECD: 04/18/24 ? STATUS: ??SOUT ? REQ NUM: [id number] ? MARY ANN: 04/17/24-1400 ? SUBM DR: Francesco Winston MD ? [...] a smooth, moist homogeneous yellow-white cut surface. ??Furniture Manager sections are submitted for microscopic examination in cassettes A1 and A2, 2 pieces each. [facility] Copies To: ?? Sherri Selby MD ?? [address] [facility] ?? [place] [address] ?? [phone] ?? Francesco Winston MD ?? [facility] ?? [address] ?? [place] [address] ?? [phone] ?? [email or web address] ----- ------- Signed (signature on file) Eugenio Roberts MD 04/19/24 6114 ? ----- ------- ? END OF REPORT ? us Generic External Data Provider LAB CYTOLOGY DARIEN GOLDSTEIN Final Result [facility] [address] [place] [address] [phone] * Stress test with myocardial perfusion (04/10/2024 9:33 AM EST) 04/10/2024 9:33 AM EST Narrative [facility] - 04/14/2024 1:04 PM EST ? [facility] ?[address] ?[place] [address] ?Nuclear Medicine Report ? Signed ? Patient: Vincent Banks,Shemar ?MR ?? #: [id number] ? : 1960 ?Acct:[id number] ? Age/Sex: 63 / M ?ADM Date: 04/10/24 ? Loc: HO.CARD ? Attending Dr: Sharan Mariscal MD ? Ordering Physician: Sharan Mariscal MD ?? Date of Service: 04/10/24 ?? Procedure(s): NM cardiolite stress test ?? Accession Number(s): [id number] ? cc: Sherri Selby MD; Sharan Mariscal [...] by: ??Chin Collins MD ??04/14/2024 01:01 ?? [facility] ? Dictated By: ?Chin Collins MD ? Signed By: ?<Electronically signed by Chin Collins MD in OV> ?04/14/24 1301 ? DD/ 0933 ? TD/TT: 04/11/24 1120 ? Consumer Loan Officer: ? Procedure Note [place], Image - 04/14/[address] [address] Nuclear Medicine Report Signed Patient: Inderjit Stoner [facility] #: [id number] : 1Acct:[id number] Age/Sex: 63 / MADM Date: 04/10/24 Loc: ANA LAURA Attending Dr: Sharan Mariscal MD Ordering Physician: Sharan Mariscal MD Date of Service: 04/10/24 Procedure(s): NM cardiolite stress test Accession Number(s): [id number] cc: Sherri Selby MD; Sharan Mariscal MD [...] difficult to assess due to subdiaphragmatic uptake. CO/CO cardiolite stress test IMPRESSION: 1. Myocardial perfusion [...] by: Chin Collins MD 04/14/2024 01:01 PM [facility] Dictated By: Chin Collins MD Signed By: <Electronically signed by Chin Collins MD inOV> 04/14/24 1301 DD/ 0933 TD/TT: 04/11/24 1120 Consumer Loan Officer: us [facility] External Provider CV STRE SS PROCEDURES Final Result [facility] [address] [place] [address] * (ABNORMAL) Protein Electrophoresis and Total Protein, Random Urine (03/30/2024 7:30 AM EST) PEU-Random Urine Creatinine 69 20 - 320 mg/dL [facility] PEU-Random Urine Protein 4(A) 5 - 25 mg/dL [facility] PEU-[place]. Prot/Creat Ratio 58 25 - 148 mg/g creat [facility] PEU-Random Urine Albumin 100 % [facility] PEU-Random Urine A1 Globulin 0 % [facility] PEU-Random Urine A2 Globulin 0 % [facility] PEU-Random Urine Beta Globulin 0 % [facility] PEU-Random Ur. Gamma Globulin 0 % [facility] PEU Ran-Abn Protein Band 1 TNP [facility] PEU Ran-Abn Protein Band 2 TNP [facility] PEU Ran-Abn Protein Band 3 TNP [facility] PEU-Random Urine Interpret. SEE NOTE [facility] Comment:Normal PatternThe sy pplier of the testing reagents for this assay haschanged. Detection of small monoclonal proteins mayvary by test system. Urine immunofixation is suggestedif clinically indicated and not already ordered.THIS TEST WAS PERFORMED AT:[employer] [place] [id number] MONTANA MD Protein/Creatinine Ratio 0.058 0.025 - 0.148 [facility] Comment:Result Units: mg/mg creat 03/30/2024 7:30 AM EST 03/30/2024 11:41 AM EST us Sherri Navarro MD LAB URINE ORDERAB LES Final Result Performing Organization Address [facility]/ZIP Co de Phone Number [facility] [address] [place] [phone] * TSH with Reflex to Free T4 (03/19/2024 11:05 AM EST) TSH reflex Free T4 2.23 0.32 - 4.0 uIU/mL [facility] Blood 03/19/2024 11:0 5 AM EST 03/19/2024 11:05 AM EST us Sherri Navarro MD LAB BLOOD ORDERAB LES Final Result Performing Organization Address [facility] Co de Phone Number [facility] [address] [place] [phone] * (ABNORMAL) Protein Electrophoresis and [place]/[employer] (03/19/2024 11:05 AM EST) Pathologist [facility] Prot Elec - Total Protein 6.7 6.1 - 8.1 g/dL [facility] Prot Elec - Albumin 4.1 3.8 - 4.8 g/dL [facility] Prot Elec - Alpha1 0.2 0.2 - 0.3 g/dL [facility] Prot Elec - Alpha2 0.6 0.5 - 0.9 g/dL [facility] Prot Elec - Beta 1 0.5 0.4 - 0.6 g/dL [facility] Prot Elec - Beta 2 0.6(A) 0.2 - 0.5 g/dL [facility] Prot Elec - Gamma 0.7(A) 0.8 - 1.7 g/dL [facility] PES - Abn Protein Band 1 SEE NOTE NONE DETECTED g/dL [facility] Comment:See below PES-Abn Protein Band 2 [facility] PES-Abn Protein Band 3 [facility] Prot Elec - Interpretation SEE NOTE [facility] Comment:Electrophoretic stud ies reveal an isolated elevationof beta-2 globulins. This pattern is suggestive ofacute inflammation; however, the presence of amonoclonal protein cannot be ruled out. Consider serumimmunofixation to rule out monoclonal protein (if notalready ordered).THIS TEST WAS PERFORMED AT:[employer] [place] [id number] MONTANA MD 03/19/2024 11:0 5 AM EST 03/19/2024 11:05 AM EST Sherri Navarro MD LAB BLOOD ORDERAB LES Final Result Performing Organization Address [facility] Co de Phone Number [facility] [address] [place] [phone] * Iron And Total Iron Binding Capacity (03/19/2024 11:05 AM EST) [facility] Iron 65 45 - 160 mcg/dL [facility] Total Iron Binding Capacity 283 228 - 428 mcg/dL [facility] Percent Iron Saturation 23 15 - 50 % [facility] Unsaturated Iron Binding 218 ug/dL [facility] Blood Venous blood specimen / Unknown 03/19/2024 11:05 AM EST 03/19/2024 11:05 AM EST Sherri Navarro MD LAB BLOOD ORDERAB LES Final Result Performing Organization Address [facility] Co de Phone Number [facility] [address] [place] [phone] * (ABNORMAL) CBC (03/19/2024 11:05 AM EST) [facility] White Blood Count 3.8(L) 4.8 - 10.8 X10*3/uL [facility] Red Blood Count 5.29 4.60 - 5.80 X10*6/uL [facility] Hemoglobin 14.6 14.0 - 18.0 g/dl [facility] Hematocrit 44.3 42.0 - 52.0 % [facility] Mean Corpuscular Volume 83.7 80.0 - 98.0 fL [facility] Mean Corpuscular Hemoglobin 27.6 27.0 - 33.0 pg [facility] Mean Corpuscular HGB Conc 33.0 31.0 - 36.0 g/dl [facility] Red Cell Distribution Width 13.3 11.0 - 16.0 % [facility] Platelet Count 174 160 - 400 X10*3/uL [facility] Mean Platelet Volume 10.0 9.4 - 12.4 fL [facility] NRBC Pct Auto 0.0 0.0 - 0.2 /100WBC [facility] NRBC Abs Auto 0.000 0.0 - 0.012 X10*3/uL [facility] Blood Venous blood specimen / Unknown 03/19/2024 11:05 AM EST 03/19/2024 11:05 AM EST Sherri Navarro MD LAB BLOOD ORDERAB LES Final Result [facility] [address] [place] [phone] * (ABNORMAL) Immunofixation, Serum (03/19/2024 11:05 AM EST) IMMUNOGLOBULIN G 995 600 - 1540 mg/dL [facility] IMMUNOGLOBULIN A 330(A) 70 - 320 mg/dL [facility] Immunoglobulin M 53 50 - 300 mg/dL [facility] Comment:THIS TEST WAS PERFOR MED AT:[employer] [place] [phone] MONTANA MD Immunofixation Result SEE NOTE [facility] Comment:Faint free monoclona l kappa band present. Blood Venous blood specimen / Unknown 03/19/2024 11:05 AM EST 03/19/2024 11:05 AM EST us Sherri Navarro MD LAB BLOOD ORDERAB LES Final Result Performing Organization Address [facility] Co de Phone Number [facility] [address] [place] [phone] * C-reactive Protein (03/19/2024 11:05 AM EST) C Reactive Protein <0.04 < or = 0.50 mg/dL [facility] 03/19/2024 11:0 5 AM EST 03/19/2024 11:05 AM EST us Generic External Data Provider LAB BLOOD ORDERAB LES Final Result Performing Organization Address [facility] Number [facility] [address] [place] [phone] * PSA,Total (03/19/2024 11:05 AM EST) Prostate Specific Antigen 2.30 <0.05 - 4.0 ng/mL [facility] Comment:PSA methodology: Lily Anglin i ChemiluminescentMicroparticle Immunoassay (CMIA) 03/19/2024 11:0 5 AM EST 03/19/2024 11:05 AM EST us Generic External Data Provider LAB BLOOD ORDERAB LES Final Result Performing Organization Address [facility] Co de Phone Number [facility] [address] [place] [phone] * Ferritin (03/19/2024 11:05 AM EST) Ferritin 145 20 - 250 ng/mL [facility] Blood Venous blood specimen / Unknown 03/19/2024 11:05 AM EST 03/19/2024 11:05 AM EST us Sherri Navarro MD LAB BLOOD ORDERAB LES Final Result Performing Organization Address City/[facility] Co de Phone Number [facility] [address] [place] [phone] * (ABNORMAL) Lipid Panel, Standard (03/19/2024 11:05 AM EST) Triglycerides 137 <150 mg/dL [facility] Comment:Desirable Triglyceri de: less than 150 mg/dLBorderline High Triglyceride 150-199 mg/dLHigh Triglyceride: 200-499 mg/dLVery High Triglyceride: greater than or equal to 5OO mg/dL Cholesterol 143 <200 mg/dL [facility] Comment:Desirable Cholestero l: less than 200 mg/dLBorderline High Cholesterol: 200-239 mg/dLHigh Cholesterol: greater than 239 mg/dL LDL Cholesterol Calculated 76 <100 mg/dL [facility] Comment:Desirable LDL: less than 100 mg/dLNear Optimal/Above Optimal LDL: 110- 129 mg/dLBorderline High LDL: 130-159 mg/dLHigh LDL: 160-189 mg/dLVery High LDL: greater than or equal to 190 mg/dL HDL Cholesterol 40(L) >40 mg/dL [facility] Comment:Desirable HDL: great er than 40 mg/dL Note: This HDL assay may give artificially low results in patients with liver disease. Blood Venous blood specimen / Unknown 03/19/2024 11:05 AM EST 03/19/2024 11:05 AM EST us Sherri Navarro MD LAB BLOOD ORDERAB LES Final Result [facility] [address] [place] [phone] * (ABNORMAL) Comprehensive Metabolic Panel (03/19/2024 11:05 AM EST) Sodium 139 135 - 145 mmol/L [facility] Potassium 3.9 3.3 - 5.1 mmol/L [facility] Chloride 110(H) 96 - 108 mmol/L [facility] Carbon Dioxide 21(L) 22 - 29 mmol/L [facility] Anion Gap 12 12 - 20 [facility] Urea Nitrogen (BUN) 12 9 - 16 mg/dL [facility] Creatinine, Serum 0.91 0.5 - 1.4 mg/dL [facility] Estimated Glomerular Filt Rate >60 [facility] Comment:NOTE: For -Am erican individuals, multiply the result by 1.210.Chronic Kidney Disease: Estimated GFR < 60 mL/min/1.34m0Xrnvig Kidney Disease: Estimated GFR < 15 mL/min/1.73m2 Glucose 101 60 - 115 mg/dL [facility] Calcium 9.2 8.4 - 10.2 mg/dL [facility] Bilirubin, Total 0.7 0.0 - 1.0 mg/dL [facility] Aspartate Amino Transferase 23 5 - 37 U/L [facility] Alanine Aminotransferase 61(H) 0 - 40 U/L [facility] Total Protein 7.1 6.5 - 8.0 g/dL [facility] Albumin Level 4.2 3.5 - 5.0 g/dL [facility] Alkaline Phosphatase 94 39 - 117 U/L [facility] Blood Venous blood specimen / Unknown 03/19/2024 11:05 AM EST 03/19/2024 11:05 AM EST us Sherri Navarro MD LAB BLOOD ORDERAB LES Final Result Performing Organization Address City/State/[facility] Co de Phone Number [facility] [address] [place] [phone] * US Pelvis Limited (03/12/2024 1:26 PM EDT) Anatomical Region Laterality Modality Pelvis Ultrasound 03/12/2024 1:26 PM EDT Narrative 03/28/2024 11:22 AM EST ? [facility] ?[address] ?[place] [address] ? Ultrasound Report ? Signed ? Patient: Vincent Banks,Shemar ?MR ?? #: [id number] ? : 1960 ?Acct:[id number] ? Age/Sex: 63 / M ?ADM Date: 10/28/24 ? Loc: HO.US ? Attending Dr: Colette Cleveland HAIR ROOTING MACHINE OPERATOR ? Ordering Physician: Holly Araujo ?? Date of Service: 03/12/24 ?? Procedure(s): US pelvic limited ?? Accession Number(s): [id number] ? cc: Holly Araujo; Sherri Selby MD [...] MD ??03/28/2024 11:19 AM EST ?? Workstation: [facility] ? Dictated By: ?Chava Sandhu MD ? Signed By: ?<Electronically signed by Chava Sandhu MD in OV> ?03/28/24 1119 ? DD/ 1326 ? TD/TT: 03/12/24 1331 ? Consumer Loan Officer: SR ? Procedure Note Diamante Cox - 03/28/[address] [address] Ultrasound Report Signed Patient: Inderjit Stoner [facility] #: [id number] : 1960cct:[id number] Age/Sex: 63 / MADM Date: 03/12/24 Loc: HO.US Attending Dr: Colette Cleveland CNP Ordering Physician: Holly Araujo Date of Service: 03/12/24 Procedure(s): US pelvic limited Accession Number(s): [id number] cc: Holly Araujo; Sherri Selby MD EXAMINATION: [...] 03/28/24 1119 DD/ 1326 TD/TT: 03/12/24 1331 Consumer Loan Officer: [facility] External Provider IMG US PROCEDURES Final Result * VASC US Carotid Artery Duplex Bilateral (03/12/2024 1:13 PM EDT) 03/12/2024 1:13 PM EDT Narrative [facility] - 03/21/2024 1:57 PM EST ? [place] [facility] ?[address] ?[place] [address] ? Ultrasound Report ? Signed ? Patient: Vincent Banks,Shemar ?MR ?? #: [id number] ? : 1960 ?Acct:[id number] ? Age/Sex: 63 / M ?ADM Date: 03/12/24 ? Loc: HO.US ? Attending Dr: Colette Cleveland HAIR ROOTING MACHINE OPERATOR ? Ordering Physician: Sherri Selby MD ?? Date of Service: 03/12/24 ?? Procedure(s): US carotid duplex BI ?? Accession Number(s): [id number] ? cc: Sherri Selby MD ? EXAMINATION: [...] DD/ 1313 ? TD/TT: 03/12/24 1324 ? Consumer Loan Officer: ? Procedure Note Donartemioter, Image - 03/21/2024 [place] [address] Ultrasound Report Signed Patient: Inderjit Stoner AMR #: [id number] : 1960cct:[id number] Age/Sex: 63 / MADM Date: 03/12/24 Loc: HO.US Attending Dr: Colette Cleveland HAIR ROOTING MACHINE OPERATOR Ordering Physician: Sherri Selby MD Date of Service: 03/12/24 Procedure(s): US carotid duplex BI Accession Number(s): [id number] cc: Sherri Selby MD EXAMINATION: US EXTRACRANIAL [...] by: Kaitlin Alfaro MD 03/21/2024 01:54 PM [facility] Dictated By: Monika Alfaro Signed By: <Electronically signed by Monika Alfaro in OV> 03/21/24 1354 DD/ 1313 TD/TT: 03/12/24 1324 Consumer Loan Officer: us Sherri Navarro MD CV VASCULAR PROCE HAYES Final Result [facility] [address] [place] [address] [phone] * Fecal Globin by Immunochemistry (03/07/2024 12:00 AM EDT) Fecal Globin By Immunochemistry SEE NOTE niid.to [facility] Comment: ??FECAL GLOBIN BY IMMUNOCHEMISTRY ?Micro Number: ?[id number] ??Test Status: ? Final ??Specimen Source: ?? Insure (tm) fobt test card ??Specimen Quality: ??Adequate ??Fecal Globin: ?Not Detected 03/07/2024 03/15/2024 5:1 8 AM EDT Narrative [facility] - 03/15/2024 4:25 PM EDT FASTING: UNKNOWN [facility] External Provider LAB BODY FLUIDS AND STOOLS ORDERABLES Final Result Performing Organization Address City/[facility] Co de Phone Number [facility] [address], [place] [phone] [facility] [address] [place] [phone] * Hepatitis C Antibody with Reflex to HCV, RNA, Quantitative, Real-Time PCR (11/16/2023 12:08 PM EDT) Hepatitis C Antibody Nonreactive Nonreactive [facility] Comment:Antibodies to HCV no t detected; does not exclude early acuteHCV infection. Blood Venous blood specimen / Unknown 11/16/2023 12:08 PM EDT 11/16/2023 12:08 PM EDT Sherri Navarro MD LAB BLOOD ORDERAB LES Final Result Performing Organization Address [facility] Co de Phone Number [facility] [address] [place] [phone] * HIV-1/2 Antigen and Antibodies, Fourth Generation, with Reflexes (11/16/2023 12:08 PM EDT) HIV AB/AG Nonreactive Nonreactive [facility] Comment:HIV-1 p24 Ag and/or HIV-1/HIV-2 Ab not detected.A test result that is nonreactive does not exclude thepossibility of exposure to or infection with HIV-1 and/orHIV-2. Nonreactive results in this assay for individualswith prior exposure to HIV-1 and/or HIV-2 may be due toantigen and antibody levels that are below the limit ofdetection of this assay.The [employer] HIV Ag/Ab Combo assay result andsupplemental assay results should be interpreted inconjunction with the patient's clinical presentation,history and other laboratory results. If the results areinconsistent with clinical evidence, additional testing issuggested to confirm the result. Blood Venous blood specimen / Unknown 11/16/2023 12:08 PM EDT 11/16/2023 12:08 PM EDT us Sherri Navarro MD LAB BLOOD ORDERAB LES Final Result Performing Organization Address [facility] Co de Phone Number [facility] [address] [place] [phone] * Hemoglobin A1c (11/16/2023 12:08 PM EDT) Hemoglobin A1c 5.8 <6.0 % [facility] Comment:Hemoglobin A1C Refer ence Range Adults: 4.8 - 6.0 % Non diabetic: < 6.0 % Goal: < 7.0 %Additional Action Suggested: > 8.0 %Note: Hemoglobin A1c results are invalid for patients with abnormal amounts of HbF. Blood transfusions may impact the HbA1c concentration in the patient sample. Estimated Average Glucose 120 mg/dL [facility] Comment:eAG = Estimated ave rage glucose which is %A1C expressed asaverage glucose, using the formula of the C7G-NbtieukVfuslho Glucose study (ADAG), Diabetes Care, Vol.31,#8,Dec. 2007 Blood Venous blood specimen / Unknown 11/16/2023 12:08 PM EDT 11/16/2023 12:08 PM EDT us Sherri Navarro MD LAB BLOOD ORDERAB LES Final Result Performing Organization Address [facility] Co de Phone Number [facility] [address] [place] [phone] from Last 3 Months or Most Recently Relevant to Health Maintenance Insurance [facility] Care Teams Drawer Maker Relationship Specialty Start Date End Date Sherri Selby MD [address] [place] [phone] PCP - General Internal Medicine 02/02/23
--- OUTSIDE RECORDS SUMMARY | 2024-06-12 11:56 | XMS_ITS | Encounter Summary ---
Author Organization [employer] Address [address] [facility] 7t [place] [address] Care Team Providers Care Vinyl Top Installer Name Role Phone Lorenza HodgeP Primary Care Provider [phone] Sherri Selby MD Primary Care Pro vider Reason for Visit * Reason Onset Date Comments triage 06/11/2022 Encounter Details Date Type Department Care Team (Late st Contact Info) Description 06/11/2022 Telephone [facility] MEDICINE [address] [place] [phone] Lorenza Hodge FNP [address] [place] [address] Dept [place] [address] triage Social History Tobacco Use Types Packs/Day [...] on pt. Voice mail to call back [facility] nurses at [phone] or if emergent care needed to go [...] Description 06/26/2024 1:00 PM EST Office Visit [facility] ADULT DENTAL [address] [place] [address] Divina Vickers [address] [place] [address] 08/17/2024 9:00 AM EDT Office Visit [facility] MEDICINE [address] [place] [address] Sherri Selby MD [address] [place] [address] documented as of this encounter Visit Diagnoses Not on filedocumented in this encounter Care Teams Vinyl Top Installer Relationship Specialty Start Date End Date Lorenza Hodge FNP PCP - General Family Medicine 04/05/22 02/01/23 Sherri Selby MD [address] [place] [address] PCP - General Internal Medicine 02/02/23 documented as of this encounter
--- OUTSIDE RECORDS SUMMARY | 2024-06-12 11:56 | XMS_ITS | Encounter Summary ---
Author Organization [employer] Address [address] [facility] 7 [place] [address] Care Team Providers Care Life Scientists Name Role Phone Sherri Selby MD Primary Care Pro vider Reason for Visit * Reason Onset Date Comments Durable Medical Equipment 05/31/2024 Encounter Details Date Type Department Care Team (Late st Contact Info) Description 05/31/2024 Telephone [facility] MEDICINE [address] [place], [place] [phone] Sherri Selby MD [address] [place], [place] [phone] Durable Medical Equipment Social History Tobacco Use [...] 8:24 AM EST Please see below. Patients home care giver is requesting the following DME on the patients behalf.Please review and advise request and if approved please send message to [place] to generate RX. Thank you * Telephone Encounter - Erika Truong - 05/31/2024 8:23 AM EST ----- Message from Lani Figueroa sent at 05/30/2024 4:40 PM EST ----- Regarding: Script Requests Contact: Kiley, I am (Sample Tester Lani Villeda), Sample Tester for [facility] Care Management, requesting the following DME???s on behalf of patient. DME Item: Cane Supportive DX: R53.1, R42, R25.1 If you should have any inquiries regarding this request, feel free to contact the Sample Tester below. Sample Tester: Lani Villeda E-mail: [email or web address] Dorr Operator: Covering Dorr Operator Tala Moses Phone: E-mail: [email or web address] Thanks in advance for your assistance with this request. Sincerely, [facility] Care Management documented in this encounter Plan of Treatment Upcoming Encounters Date Type Department Care Team (Late st Contact Info) Description 06/26/2024 1:00 PM EST Office Visit [facility] ADULT DENTAL [address] [place], [place] [phone] Divina Vickers [address] [place] [address] 08/17/2024 9:00 AM EDT Office Visit [facility] MEDICINE [address] [place] [address] Sherri Selby MD [address] [place] [address] documented as of this encounter Visit Diagnoses Not on filedocumented in this encounter Additional Health Concerns Assessment Noted Time PHQ-9 Depression Total Score: 12 024 3:28 PM EST documented as of this encounter Care Teams Life Scientists Relationship Specialty Start Date End Date Sherri Selby MD [address] [place], [place] [phone] PCP - General Internal Medicine 02/02/23 documented as of this encounter
--- OUTSIDE RECORDS SUMMARY | 2024-06-12 11:56 | XMS_ITS | Encounter Summary ---
Author Organization [employer] Address [address] [facility] [address] [place] [address] Care Team Providers Care Stripping And Booking Machine Operator Name Role Phone Sherri Selby MD Primary Care Pro vider Reason for Visit * Reason Onset Date Comments August Recall 06/08/2024 Encounter Details Date Type Department Care Team (Late st Contact Info) Description 06/08/2024 Telephone [facility] [address] [place] [address] Chrissy Olivera [place] August Recall Social History Tobacco Use Types Packs/Day Years [...] encounter Miscellaneous Notes * Telephone Encounter - Chrissy Olivera MA - 06/08/2024 9:54 AM EST T/C- Powerhouse Mechanic Supervisor and Patient made a Office Visit Extended appointment with Jamari for August. Appointment reminder sent via mail. documented in this encounter Plan of Treatment Upcoming Encounters Date Type Department Care Team (Late st Contact Info) Description 06/26/2024 1:00 PM EST Office Visit [facility] ADULT DENTAL [address] [place] [phone] Divina Vickers [address] [place] [address] 08/17/2024 9:00 AM EDT Office Visit [facility] MEDICINE [address] [place] [address] Sherri Selby MD [address] [place] [phone] documented as of this encounter Visit Diagnoses Not on filedocumented in this encounter Additional Health Concerns Assessment Noted Time PHQ-9 Depression Total Score: 12 024 3:28 PM EST documented as of this encounter Care Teams Stripping And Booking Machine Operator Relationship Specialty Start Date End Date Sherri Selby MD [address] [place] [phone] PCP - General Internal Medicine 02/02/23 documented as of this encounter
--- OUTSIDE RECORDS SUMMARY | 2024-06-12 11:56 | XMS_ITS | Encounter Summary ---
Author Organization [employer] Address [address] [facility] [address] [place] [address] Care Team Providers Care Commercial Attorney Name Role Phone Lorenza Hodge [facility] Primary Care Provider [phone]- [phone] Sherri Selby MD Primary Care Pro vider Encounter Details Date Type Department Care Team (Late st Contact Info) Description 11/25/2022 Orders Only [facility] [address] [place] [address] Lorenza Hodge, [address] Dept [place] [address] Social History Tobacco Use Types Packs/Day Years [...] Description 06/26/2024 1:00 PM EST Office Visit [facility] ADULT D[facility]AL [address] [place], [place] [phone] Divina Vickers [address] [place] [address] 08/17/2024 9:00 AM EDT Office Visit [facility] [address] [place] [address] Sherri Selby MD [address] [place] [address] documented as of this encounter Procedures Procedure Name Priority Date/Time Associated Diagnosis Comments US RENAL BI Routine 12/06/2022 1:54 PM EDT documented in this encounter Results * US RENAL BI (12/06/2022 1:54 PM EDT) Anatomical Region Laterality Modality Abdomen Ultrasound 12/06/2022 1:54 PM EDT Narrative 12/09/2022 6:44 PM EDT ? [facility] ?[address] ?[place] [address] ? Ultrasound Report ? Signed ? Patient: Inderjit Stoner ?MR ?? #: [id number] ? : 1960 ?Acct:[id number] ? Age/Sex: 62 / M ?ADM Date: 12/06/22 ? Loc: HO.US ? Attending Dr: Lorenza Hodge SUPERVISOR HAND SILVERING ? Ordering Physician: Lorenza Hodge SUPERVISOR HAND SILVERING ?? Date of Service: 12/06/22 ?? Procedure(s): US renal BI ?? Accession Number(s): [id number] ? cc: Lorenza Hodge SUPERVISOR HAND SILVERING ? EXAMINATION: ?? US RETROPERITONEAL LIMITED (RENAL [...] signed by Radha Ceballos MD in OV> ?12/09/22 1841 ? DD/ 1354 ? TD/TT: ? Music Specialist: ? Procedure Note Donotuseinterpreter, Image - 12/09/[address] [address] Ultrasound Report Signed Patient: Inderjit Stoner [facility]R #: [id number] : 1Acct:[id number] Age/Sex: 62 / MADM Date: 12/06/22 Loc: HO.US Attending Dr: Lorenza Hodge SUPERVISOR HAND SILVERING Ordering Physician: Lorenza Hodge Date of Service: 12/06/22 Procedure(s): US renal BI Accession Number(s): [id number] cc: Lorenza Hodge SUPERVISOR HAND SILVERING EXAMINATION: US RETROPERITONEAL LIMITED (RENAL ONLY) CLINICAL [...] in OV> 12/09/22 1841 DD/ 1354 TD/TT: Music Specialist: us Lorenza OCONNELL IMG US PROCEDURES Edited R esult - Final documented in this encounter Visit Diagnoses Not on filedocumented in this encounter Additional Health Concerns Assessment Noted Time PHQ-9 Depression Total Score: 16 023 9:09 AM EDT documented as of this encounter Care Teams Commercial Attorney Relationship Specialty Start Date End Date Lorenza Hodge FNP PCP - General Family Medicine 04/05/22 02/01/23 Sherri Selby MD [address] [place] [phone] PCP - General Internal Medicine 02/02/23 documented as of this encounter
--- OUTSIDE RECORDS SUMMARY | 2024-06-12 11:56 | XMS_ITS | Encounter Summary ---
Author Organization [facility] Address [address] [facility] 7t [place] [address] Care Team Providers Care Executive Vice President Of Sales Name Role Phone Funmi Easton MD Primary Care Provider Lorenza Stroud FILM BOOKER Primary Care Provider [phone]- [phone] Sherri Selby MD Primary Care Pro vider Encounter Details Date Type Department Care Team (Latest Contact Info) Description 12/24/2021 Abstract [facility] CONVERSIONS Dental, Provider, DDS Social History [...] Description 06/26/2024 1:00 PM EST Office Visit [facility] ADULT DENTAL [address] [place] [address] Divina Vickers [address] [place] [address] 08/17/2024 9:00 AM EDT Office Visit [facility] MEDICINE [address], [place] [phone] Sherri Selby MD [address] [place], [place] [phone] documented as of this encounter Visit Diagnoses Not on filedocumented in this encounter Care Teams Executive Vice President Of Sales Relationship Specialty Start Date End Date Funmi Easton MD PCP - General Family Medicine 03/20/19 04/04/22 Lorenza Hodge FNP PCP - General Family Medicine 04/05/22 02/01/23 Sherri Selby MD [address] [place] [phone] PCP - General Internal Medicine 02/02/23 documented as of this encounter
--- OUTSIDE RECORDS SUMMARY | 2024-06-12 11:56 | XMS_ITS | Encounter Summary ---
Author Organization [employer] Address [address] 7t [place] [address] Care Team Providers Care Homoeopath Name Role Phone Sherri Selby MD Primary Care Pro vider Reason for Visit * Reason Onset Date Comments ER Follow-up 06/06/2024 Encounter Details Date Type Department Care Team ([facility] st Contact Info) Description 06/06/2024 Telephone [facility] MEDICINE [address] [place], [place] [phone] Christine Moses, RN [address] [place], [place] [phone] ER Follow-up Social History Tobacco Use Types [...] your housing situation today? I have bronwyn aragno 10/11/[address] you li [...] that he is scheduled to see the hansard reporter today to do cardiac CTA. Is feeling better today. No nausea today. Reports dizziness is ongoing. He went to the ED because of the LOC which his hansard reporter believe may be cardiac related. Pt on [...] 06/05/2024 3:24 PM EST ----- CTA at [facility] ED 05/31/24 showed approximate 20% stenosis in [...] Description 06/26/2024 1:00 PM EST Office Visit [facility] ADULT DENTAL [address] [place] [address] Divina Vickers [address] [place] [address] 08/17/2024 9:00 AM EDT Office Visit [facility] MEDICINE [address] [place] [address] Shreri Selby MD [address] [place] [address] documented as of this encounter Visit Diagnoses Not on filedocumented in this encounter Additional Health Concerns Assessment Noted Time PHQ-9 Depression Total Score: 12 03/28/ 024 3:28 PM EST documented as of this encounter Care Teams Homoeopath Relationship Specialty Start Date End Date Sherri Selby MD [address] [place], [place] [phone] PCP - General Internal Medicine 02/02/23 documented as of this encounter
--- OUTSIDE RECORDS SUMMARY | 2024-06-12 11:56 | XMS_ITS | Encounter Summary ---
Author Organization [employer] [facility] Address [address] [facility] 7t [place] [address] Care Team Providers Care Eye Specialist Name Role Phone Funmi Easton MD Primary Care Provider Lorenza Stroud BI DATA MODELER Primary Care Provider [phone]- [phone] Sherri Selby MD Primary Care Pro vider Encounter Details Date Type Department Care Team (Latest Contact Info) Description 05/02/2019 Abstract [facility] CONVERSIONS Dental, Provider, DDS Social History Tobacco [...] Description 06/26/2024 1:00 PM EST Office Visit [facility] ADULT DENTAL [address] [place] [address] Divina Vickers [address] [place] [address] 08/17/2024 9:00 AM EDT Office Visit [facility] MEDICINE [address] [place], [place] [phone] Sherri Selby MD [address] [place], [place] [phone] documented as of this encounter Visit Diagnoses Not on filedocumented in this encounter Care Teams Eye Specialist Relationship Specialty Start Date End Date Funmi Easton MD PCP - General Family Medicine 03/20/19 04/04/22 Lorenza Hodge FNP PCP - General Family Medicine 04/05/22 02/01/23 Sherri Selby MD [address] [place] [phone] PCP - General Internal Medicine 02/02/23 documented as of this encounter
--- OUTSIDE RECORDS SUMMARY | 2024-06-12 11:56 | XMS_ITS | Encounter Summary ---
Author Organization [employer] Address [address] 7[address] [place] [address] Care Team Providers Care Melter Supervisor Oxygen Furnace Name Role Phone Sherri Selby MD Primary [...] 1:48 PM EST CTA at [facility] 05/31/24 showed approximate 20% stenosis in [...] 1:00 PM EST Office Visit [facility] ADULT DENTAL [address] [place] [address] Divina Vickers [address] [place] [address] 08/17/2024 9:00 AM EDT Office Visit [facility] MEDICINE [address] [place] [address] Sherri Selby MD [address] [place] [address] documented as of this encounter Procedures Procedure [...] EST Narrative 05/31/2024 4:04 PM EST ? [facility] ?[address] ?[place] [address] ? CT Scan Report ? Signed ? Patient: Vincent DarrenInderjit Myers ?MR ?? #: [id number] ? : 1960 ?Acct:[id number] ? Age/Sex: 63 / M ?ADM Date: 01/16/25 ? Loc: HO.ED ? Attending Dr: ? Ordering Physician: Tala Delgadillo ?? Date of Service: 05/31/24 ?? Procedure(s): CT angio head neck ?? Accession Number(s): [id number] ? cc: Tala Delgadillo; Sherri Selby MD ? Report Number: ?? [id number]: Total DLP = 2963.00 mGy-cm ?? EXAMINATION: [...] The data was ?? processed at the principal technologist's workstation for generation of MIP ?? [...] segment is diminutive. ?? origin of the FILE CLERK DATA ENTRY with robust opacification of the posterior ?? communicating artery. Normal opacification of the distal FILE CLERK DATA ENTRY segments. ?? -LEFT POSTERIOR CEREBRAL ARTERY: Normal P1 segment. Normal ?? opacification of the distal FILE CLERK DATA ENTRY segments. ?? -POSTERIOR COMMUNICATING ARTERIES: Left is [...] DD/ 1439 ? TD/TT: 05/31/24 1515 ? Grain Inspector: ? Procedure Note Brooke, Image - 05/31/[address] [address] [address] Scan Report Signed Patient: Inderjit Stoner [facility] #: [id number] : 1Acct:[id number] Age/Sex: 63 / MADM Date: 05/31/24 Loc: HO.ED Attending Dr: Ordering Physician: Taal Delgadillo Date of Service: 05/31/24 Procedure(s): CT angio head neck Accession Number(s): [id number] cc: Tala Delgadillo; Sherri Selby MD Report Number: [id number]: Total DLP = 2963.00 mGy-cm EXAMINATION: CT [...] obtained. The data was processed at the principal technologist's workstation for generation of MIP sequences. [...] P1 segment is diminutive. origin of the FILE CLERK DATA ENTRY with robust opacification of the posterior communicating artery. Normal opacification of the distal FILE CLERK DATA ENTRY segments. -LEFT POSTERIOR CEREBRAL ARTERY: Normal P1 segment. Normal opacification of the distal FILE CLERK DATA ENTRY segments. -POSTERIOR COMMUNICATING ARTERIES: Left is not [...] 05/31/24 1601 DD/ 1439 TD/TT: 05/31/24 1515 Grain Inspector: [facility] External Provider IMG CT PROCEDURES Final Result * CT Cervical Spine w/o Contrast (05/31/2024 2:39 PM EST) Anatomical Region Laterality Modality Spine, C-spine Computed Tomogra phy 05/31/2024 2:39 PM EST Narrative 05/31/2024 3:51 PM EST ? [facility] ?[address] ?[place] [address] ? CT Scan Report ? Signed ? Patient: iVncent BanksInderjit Myers ?MR ?? #: [id number] ? : 1960 ?Acct:[id number] ? Age/Sex: 63 / M ?ADM Date: 05/31/ ? Loc: HO.ED ? Attending Dr: ? Ordering Physician: Tala Delgadillo ?? Date of Service: 05/31/24 ?? Procedure(s): CT cervical spine wo IV con ?? Accession Number(s): [id number] ? cc: Tala Delgadillo; Sherri Selby MD ? Report Number: ?? [id number]: Total DLP = ??591.42 mGy-cm ?? EXAMINATION: [...] DD/ 1439 ? TD/TT: 05/31/24 1517 ? Grain Inspector: ? Procedure Note Diamante Cox - 05/31/2024 [place] [address] [place] [address] CT Scan Report Signed Patient: Inderjit Stoner [facility] #: [id number] : 1960cct:[id number] Age/Sex: 63 / MADM Date: 05/31/24 Loc: HO.ED Attending Dr: Ordering Physician: Tala Delgadillo Date of Service: 05/31/24 Procedure(s): CT cervical spine wo IV con Accession Number(s): [id number] cc: Tala Delgadillo; Sherri Selby MD Report Number: [id number]: Total DLP = 591.42 mGy-cm EXAMINATION: CT [...] by: Blu Farrell MD 05/31/2024 03:48 PM [facility] Dictated By: Blu Mijares MD Signed By: <Electronically signed by Blu Moses MDin OV> 05/31/24 1548 DD/ 1439 TD/TT: 05/31/24 1517 Grain Inspector: [facility] External Provider IMG CT PROCEDURES Final Result * SARS-CoV-2 RNA, Influenza A/B, and RSV RNA, Ql NAAT (05/31/2024 1:49 PM EST) Influenza A PCR NEGATIVE Negative [facility] Influenza B PCR NEGATIVE Negative [facility] Resp Syncy Virus RNA Qual PCR NEGATIVE Negative [facility] SARS COV2 PCR NEGATIVE Negative [facility] Comment:All test results mus t [...] use by authorized laboratories.Testing performed on the [employer] GeneXpert utilizingreal-time RT-PCR.All SARS CoV2 and positive influenza A/B results arereported to [facility]. 05/31/2024 1:49 PM EST 05/31/2024 2:25 PM EST Generic External Data Provider LAB MICROBIOLOGY - GENERAL ORDERABLES Final Result [facility] [address] [place] [phone] * Levetiracetam (05/31/2024 1:41 PM EST) Levetiracetam 10.9 6.0 - 46.0 mcg/mL [facility] Comment:Brivaracetam (Brivia ct(R), Rikelta(R)) exhibitssignificant cross- reactivity in the Levetiracetam(Keppra(R), Spritam(R)) immunoassay. If Brivaracetamhas been prescribed, order test code 13006Cvcujrulokent by LCMSMS.THIS TEST WAS PERFORMED AT:[employer]/[id number] [place] [address]KNBVCCALOBO WHEAT MD,PHD 05/31/2024 1:41 PM EST 05/31/2024 1:44 PM EST Generic External Data Provider LAB BLOOD ORDERAB LES Final Result Performing Organization Address [facility] Phone Number [facility] [address] [place] [phone] * High Sensitivity Troponin I (05/31/2024 1:41 PM EST) Pathologist [facility] TROPONIN I HIGH SENSITIVITY <2.7 <3.5 - 35.0 ng/L [facility] Comment:The [place] high sens itivity Troponin-I results should beused in conjunction with other diagnostic information suchas ECG, clinical observations and information, and patientsymptoms to aid in the diagnosis of [place]. 05/31/2024 1:41 PM EST 05/31/2024 1:44 PM EST Generic External Data Provider LAB BLOOD ORDERAB LES Final Result Performing Organization Address [facility] Number [facility] [address] [place] [phone] * Partial Thromboplastin Time, Activated (APTT) (05/31/2024 1:41 PM EST) Partial Thromboplastin Time 28.1 26.0 - 36.8 SEC [facility] Comment:For information rega rding the monitoring of direct thrombininhibitors, please refer to Pharmacy. 05/31/2024 1:41 PM EST 05/31/2024 1:44 PM EST Generic External Data Provider LAB BLOOD ORDERAB LES Final Result Performing Organization Address [facility]/ZIP Co de Phone Number [facility] [address] [place] [phone] * Prothrombin Time-INR (05/31/2024 1:41 PM EST) [facility] Prothrombin Time 12.1 10.9 - 12.4 SEC [facility] INTERNATIONAL NORM RATIO 1.0 0.9 - 1.1 [facility] Comment:INTERNATIONAL NORMAL IZED RATIO (INR) [...] ORDERAB LES Final Result Performing Organization Address City/[facility] Co de Phone Number [facility] [address] [place] [phone] * Magnesium (05/31/2024 1:41 PM EST) [facility] Magnesium 2.0 1.6 - 2.6 mg/dL [facility] 05/31/2024 1:41 PM EST 05/31/2024 1:44 PM EST Generic External Data Provider LAB BLOOD ORDERAB LES Final Result Performing Organization Address [facility] Co de Phone Number [facility] [address] [place] [phone] * (ABNORMAL) Basic Metabolic Panel (05/31/2024 1:41 PM EST) [facility] Sodium 141 135 - 145 mmol/L [facility] Potassium 4.4 3.3 - 5.1 mmol/L [facility] Chloride 109(H) 96 - 108 mmol/L [facility] Carbon Dioxide 27 22 - 29 mmol/L [facility] Anion Gap 9(L) 12 - 20 [facility] Urea Nitrogen (BUN) 20(H) 9 - 16 mg/dL [facility] Creatinine, Serum 1.13 0.5 - 1.4 mg/dL [facility] Creatinine Clr Calc Pharmacy 73.7 [facility] Comment:eGFR (calculated fro m the MDRD study equation) and eCrCl(calculated from the Cockcroft-Gault equation) are based ondifferent parameters and may not yield comparable results.If eCrCl result is absurd, please check patient'sheight/weight. Estimated Glomerular Filt Rate >60 [facility] Comment:Chronic Kidney Disea se: Estimated GFR < 60 mL/min/[id number] Kidney Disease: Estimated GFR < 15 mL/min/1.73m2 Glucose 102 60 - 115 mg/dL [facility] Calcium 9.3 8.4 - 10.2 mg/dL [facility] 05/31/2024 1:41 PM EST 05/31/2024 1:44 PM EST us Generic External Data Provider LAB BLOOD ORDERAB LES Final Result [facility] [address] [place] [phone] * (ABNORMAL) Hepatic Function Panel (05/31/2024 1:41 PM EST) Bilirubin, Total 1.0 0.0 - 1.0 mg/dL [facility] Bilirubin, Direct 0.3 0.0 - 0.5 mg/dL [facility] Aspartate Amino Transferase 28 5 - 37 U/L [facility] Alanine Aminotransferase 75(H) 0 - 40 U/L [facility] Total Protein 7.8 6.5 - 8.0 g/dL [facility] Albumin Level 4.4 3.5 - 5.0 g/dL [facility] Alkaline Phosphatase 96 39 - 117 U/L [facility] 05/31/2024 1:41 PM EST 05/31/2024 1:44 PM EST us Generic External Data Provider LAB BLOOD ORDERAB LES Final Result [facility] [address] [place] [phone] * CBC auto differential (05/31/2024 1:41 PM EST) White Blood Count 5.3 4.8 - 10.8 X10*3/uL [facility] Red Blood Count 5.32 4.60 - 5.80 X10*6/uL [facility] Hemoglobin 14.7 14.0 - 18.0 g/dl [facility] Hematocrit 45.4 42.0 - 52.0 % [facility] Mean Corpuscular Volume 85.3 80.0 - 98.0 fL [facility] Mean Corpuscular Hemoglobin 27.6 27.0 - 33.0 pg [facility] Mean Corpuscular HGB Conc 32.4 31.0 - 36.0 g/dl [facility] Red Cell Distribution Width 13.2 11.0 - 16.0 % [facility] Platelet Count 176 160 - 400 X10*3/uL [facility] Mean Platelet Volume 9.8 9.4 - 12.4 fL [facility] Neutrophils Percent Auto 70.4 45 - 73 % [facility] Imm Gran Pct Auto 0.4 0.0 - 0.4 % [facility] Lymphocytes Percent Auto 23.3 20 - 40 % [facility] Monocytes Percent Auto 4.9 2 - 11 % [facility] Eosinophils Percent Auto 0.6 0 - 4 % [facility] Basophils Percent Auto 0.4 0 - 2 % [facility] NRBC Pct Auto 0.0 0.0 - 0.2 /100WBC [facility] Neutrophils Absolute Auto 3.7 2.0 - 8.3 x10*3/uL [facility] Imm Gran Abs Auto 0.02 0.00 - 0.03 X10*3/uL [facility] Lymphocytes Absolute Auto 1.2 1.2 - 4.9 X10*3/uL [facility] Monocytes Absolute Auto 0.3 0.1 - 1.2 X10*3/uL [facility] Eosinophils Absolute Auto 0.0 0.0 - 0.4 X10*3/uL [facility] Basophils Absolute Auto 0.0 0.0 - 0.2 X10*3/uL [facility] NRBC Abs Auto 0.000 0.0 - 0.012 X10*3/uL [facility] 05/31/2024 1:41 PM EST 05/31/2024 1:44 PM EST us Generic External Data Provider LAB BLOOD ORDERAB LES Final Result Performing Organization Address City/State/[facility] Co de Phone Number [facility] [address] [place] [phone] documented in this encounter Visit Diagnoses Not on filedocumented in this encounter Additional Health Concerns Assessment Noted Time PHQ-9 Depression Total Score: 12 024 3:28 PM EST documented as of this encounter Care Teams Melter Supervisor Oxygen Furnace Relationship Specialty Start Date End Date Sherri Selby MD [address] [place] [address] PCP - General Internal Medicine 02/02/23 documented as of this encounter
--- OUTSIDE RECORDS SUMMARY | 2024-06-12 11:56 | XMS_ITS | Encounter Summary ---
Author Organization [facility] [facility] Address [address]t [place] [address] Care Team Providers Care Lean Leader Name Role Phone Funmi Easton MD Primary Care Provider Lorenza Stroud DECK WORKER Primary Care Provider [phone]- [phone] Sherri Selby MD Primary Care Pro vider Encounter Details Date Type Department Care Team (Latest Contact Info) Description 03/23/2021 Abstract [facility] CONVERSIONS Dental, Provider, DDS Social History Tobacco [...] Description 06/26/2024 1:00 PM EST Office Visit [facility] ADULT DENTAL [address] [place] [address] Divina Vickers [address] [place] [address] 08/17/2024 9:00 AM EDT Office Visit [facility] MEDICINE [address] [place], [place] [phone] Sherri Selby MD [address] [place], [place] [phone] documented as of this encounter Visit Diagnoses Not on filedocumented in this encounter Care Teams Lean Leader Relationship Specialty Start Date End Date Funmi Easton MD PCP - General Family Medicine 03/20/19 04/04/22 Lorenza Hodge FNP PCP - General Family Medicine 04/05/22 02/01/23 Sherri Selby MD [address] [place] [phone] PCP - General Internal Medicine 02/02/23 documented as of this encounter
--- OUTSIDE RECORDS SUMMARY | 2024-06-12 11:56 | XMS_ITS | Clinical Summary ---
Author Organization [facility] Address [address] [place] [phone] Phone Care Team Providers Care Compressed Gas Equipment Mechanic Name Role Phone Unavailable Primary Care Provider [...]
--- OUTSIDE RECORDS SUMMARY | 2024-06-12 11:56 | XMS_ITS | Encounter Summary ---
Author Organization [employer] Address [address] [place] [address] Care Team Providers Care Pipe Fitter Apprentice Name Role Phone Sherri Selby MD Primary Care Pro vider Reason for Visit * Reason Onset Date Comments Results 05/05/2023 Encounter Details Date Type Department Care Team ([facility] st Contact Info) Description 05/05/2023 Telephone [facility] MEDICINE [address] [place], [place] [phone] Sherri Selby MD [address] [place] [address] Results Social History Tobacco Use Types Packs/Day [...] results of spine. Please contact pt at [phone] documented in this encounter Plan of Treatment Upcoming Encounters Date Type Department Care Team (Late st Contact Info) Description 06/26/2024 1:00 PM EST Office Visit [facility] ADULT DENTAL [address] [place] [phone] FerrJean Claude arangoler [address] [place] [address] 08/17/2024 9:00 AM EDT Office Visit [facility] MEDICINE [address] [place] [phone] Sherri Selby MD [address] [place] [phone] documented as of this encounter Visit Diagnoses Not on filedocumented in this encounter Additional Health Concerns Assessment Noted Time PHQ-9 Depression Total Score: 16 023 9:09 AM EDT documented as of this encounter Care Teams Pipe Fitter Apprentice Relationship Specialty Start Date End Date Sherri Selby MD [address] [place] [phone] PCP - General Internal Medicine 02/02/23 documented as of this encounter
== END 2024-06-12 11:40 | disposition home or self-care (01) ==
LOC: HO.PMCPRC 10:49
PROVIDERS: PCP Student in an Organized Health Care Education/Training Program; Visit Provider Anesthesiology
DX: M96.1 Postlaminectomy syndrome, not elsewhere classified (principal); M54.16 Radiculopathy, lumbar region
CPT/HCPCS: 64483

== ENCOUNTER 2024-06-29 08:49 | Outpatient (AMB) | payer OTHER, SELFPAY ==
--- NOTE | 2024-06-29 08:54 | A.OFFVIS_ITS ---
Vital Signs 06/29/24 08:57 Height 5 ft 9 in Weight 192 lb BMI 28.4 BP 113/67 Blood Pressure Location Lt brachial Position Sitting Pulse 83 Pulse Source Pulse Oximeter Pulse Oximetry (%) 98 Oxygen Delivery Method Room Air Intake Visit Reasons: LEFT L5, S1 TFESI Intake Note: Pain today 4/10 Supervisor Sewer Maintenance Required: No Accompanied by: Self / Same As Patient Allergies No Known Allergies Allergy (Verified 06/29/24 08:58) HPI Comments Details: Patient presents back to the office today for follow-up, 2 weeks status post left L5-S1 transforaminal epidural steroid injection Pain today is rated as a 4/10 He reports only very minimal improvement in pain since the injection. Prior: Patient presents back to the office today for follow-up lower back pain. Visit was completed with canine service instructor trainer Inderjit, [id number] Records from [facility] were scanned into the chart, those were reviewed for today's visit Patient continues with left lower back pain with radiation down the left leg to the foot Completed physical therapy 6 weeks ago, pain persists Denies any new injury Intake note: Inderjit is a very pleasant 63-year-old male who presents the office today for evaluation and management of his chronic lower back pain. Patient reports he has been suffering with this pain for greater than 20 years. Over the last 5 or 6 months it has progressively worsened. Now with pain down the left leg to the great toe Endorses numbness, tingling shooting, stabbing pain to the left lower extremity. Denies inciting injury, trauma or fall Pain is worse with sitting, walking and climbing stairs. Improves with relaxing and lying down. History of L4-5 fusion in [address] Uribe Had SCS implant done in 2007 with subsequent removal. Reports it did not help and was too difficult to use. Patient has been taking Tylenol and ibuprofen with minimal improvement He has not attempted physical therapy, home exercise program, acupuncture, chiropractor, massage or recent injections Denies red flag symptoms including new loss of bowel, bladder or saddle anesthesia Patient underwent MRI of lumbar spine last fall, results as per below In terms of muscle damage condition is described as sharp, shooting, cramping, numbness, pins and needles, tingling, aching Pain is negatively impacting patient's enjoyment of life, general activity, walking, sleeping Denies implantable devices, pacemaker or defibrillator Denies current use of alcohol, tobacco, nicotine or illicit substances Denies current use of anticoagulation medications PFSH Medical History CAD (coronary artery disease) Surgical History Hx of colonoscopy History of esophagogastroduodenoscopy (EGD) Family History Father Cancer Throat cancer Mother Cancer Sister FH: kidney cancer Breast cancer Social History Alcohol intake: never Patient Tobacco Use Status: Never used Tobacco Advance Directives Date on File: 02/25/21 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 Gender identity: Male Review of Systems Const All systems reviewed & are unremarkable except as noted in HPI and below Physical Exam Vital Signs: Last Vital Signs Pulse 83 06/29/24 08:57 BP 113/67 06/29/24 08:57 Pulse Ox 98 06/29/24 08:57 Oxygen Delivery Method Room Air 06/29/24 08:57 BMI result Body Mass Index 28.4 General: awake, alert, oriented. Answers questions appropriately. Fully engaged in examination. Skin: warm, dry, intact HEENT: Normocephalic. Hearing intact. Cardiac: External chest normal in appearance. Respiratory: No cough, audible wheezing or stridor. Abdomen: without gross distension. MS: No obvious swelling or deformities. Able to transition from sit to stand unassisted. Ambulates with bilaterally normal heel strike and toe off Neurological: Oriented to person, place, time and situation. Thought process intact. Ambulates with the use of a cane Psychiatric: Appropriate mood and affect. Good judgment and insight. Results Reviewed Results Reviewed: 03/19/2023 MRI lumbar spine FINDINGS: Prior L4-L5 interbody fusion with solid interbody arthrodesis at this level. Straightening of the normal lumbar lordosis. No significant spondylolisthesis. Vertebral body heights are maintained. There is no suspicious osseous lesion. Raced mild disc desiccation and disc height loss at T11-T12 with Kreis type I Modic endplate changes anteriorly. Increased type I Modic endplate change along the L2 anterior inferior endplate. L5 intraosseous hemangioma, unchanged. Multilevel type II Modic endplate change most pronounced at L4-L5. Multilevel anterior osteophytic spurring is seen. Level by level detail as follows: L1-L2: No spinal canal or neural foraminal stenosis. L2-L3: Shallow annular disc bulge and mild bilateral facet arthrosis. No spinal canal or neural foraminal stenosis. L3-L4: Annular disc bulge and mild bilateral facet arthrosis. No spinal canal or neural foraminal stenosis. L4-L5: Post interbody fusion with interbody arthrodesis and mild to moderate bilateral facet arthrosis. No spinal canal stenosis. Impression upon the traversing left L5 nerve root in the subarticular zone. No neural foraminal stenosis. L5-S1: Annular disc bulge, moderate right and mild left facet arthrosis. No spinal canal stenosis. Moderate right and mild to moderate left neural foraminal stenosis with mild mass effect along the exiting L5 nerve roots. The conus medullaris terminates at the level of L1. The distal spinal cord is normal in appearance. . No epidural fluid collection, hematoma, or mass. No significant abnormalities of the paraspinal musculature. Limited evaluation of the intra-abdominal structures without significant abnormalities. The abdominal aorta is of normal contour and caliber. IMPRESSION: Again seen interbody fusion at L4-L5 and minimal lumbar spondylosis without high-grade spinal canal or neural foraminal stenosis. Stable moderate right and mild to moderate left neural foraminal stenosis with mild mass effect along the exiting L5 nerve roots. Assessment & Plan Assessment & Plan (1) Nocturia: Code(s): R35.1 - Nocturia Category: Medical (2) Post laminectomy syndrome: Code(s): M96.1 - Postlaminectomy syndrome, not elsewhere classified Category: Medical (3) Lumbar facet arthropathy: Code(s): M47.816 - Spondylosis without myelopathy or radiculopathy, lumbar region Category: Medical (4) Lumbar radiculopathy: Code(s): M54.16 - Radiculopathy, lumbar region Category: Medical (5) Cervical post-laminectomy syndrome: Code(s): M96.1 - Postlaminectomy syndrome, not elsewhere classified Category: Medical Plan Inderjit presented back to the office today for follow-up 2 weeks status post left L5-S1 transforaminal epidural steroid injection Reports only very minimal improvement in his pain since the injection. Patient has exhausted conservative therapy including PT, home exercise program, nonsteroidal anti-inflammatory medications [id number] medications, muscle relaxers without improvement of his symptoms Referral placed to Dr. Uribe, neurosurgeon. Previous surgically implanted spinal cord stimulator with subsequent removal eliminates the option for treatment with SCS in the future. If no plan for surgical intervention consider intrathecal drug delivery device. All questions and concerns have been answered and patient agrees with the plan. Follow up after neurosurgical evaluation, sooner if needed. Orders: Referrals Neurosurgery Referral M96.1 - Postlaminectomy syndrome, not elsewhere classified, R35.1 - Nocturia Coding Level of Care Code Est Pt Level 3 (68433) Complex EM visit Add On G2211 Diagnoses Nocturia R35.1 Post laminectomy syndrome M96.1 Lumbar facet arthropathy M47.816 Lumbar radiculopathy M54.16 Cervical post-laminectomy syndrome M96.1
[2024-06-29 08:57] VITALS: BP 113/67; PULSE 83; O2SAT 98; BMI 28.4
--- OUTSIDE RECORDS SUMMARY | 2024-06-29 09:04 | XMS_ITS | Clinical Summary ---
Author Organization [employer] Address [address] [facility] [address] [place] [address] Care Team Providers Care Clinical Education Specialist Name Role Phone Sherri Selby MD Primary Care Pro vider Allergies Active Allergy Reactions Criticality Noted Date Comments Fruit Extracts 08/06/2022 Other reaction(s): mouth itches Medications * This document contains information received from the source organization and may not represent a complete record from that organization. famotidine (Pepcid) 40 MG tablet Take 40 mg by mouth at bedtime. 07/16/19 23 Active propranolol (Inderal) 10 MG tablet 08/10/19 23 Active senna (Senokot) 8.6 MG tablet 08/10/19 23 Active pantoprazole (ProtoNix) 40 MG EC tablet TAKE 1 TABLET BY MOUTH TWICE DAILY IN THE MORNING AND AT BEDTIME 07/02/19 23 Active SM Fiber Laxative 500 MG tablet TAKE 1 TABLET BY MOUTH EVERY MORNING WITH GLASS OF WATER 04/07/20 22 Active docusate sodium (Colace) 100 MG capsule Take 100 mg by mouth at bedtime. 06/08/19 23 Active nitroglycerin (Nitrostat) 0.4 MG SL tabletIndicati ons:Atheroscle rosis of [place] coronary artery of [place] heart with stable angina pectoris (CMS/HCC) Place 1 tablet (0.4 mg) under the tongue every 5 (five) minutes if needed for chest pain. 90 tablet 1 08/11/19 23 Active polyethylene glycol, PEG, 3350 (MiraLax) 17 GM/SCOOP powderIndicati ons:Abdominal discomfort Mix 1 scoop (17g) of miralax in 8 ounces of beverage every morning and drink. 527 g 2 10/08/19 23 Active levETIRAcetam (Keppra) 500 MG tablet Take 1 tablet (500 mg) by mouth in the morning. 1 tablet 11/25/19 23 Active Diclofenac Sodium (Voltaren) 1 % gelIndications :Flank pain Apply 2 g topically if needed in the morning and at bedtime (muscle pain). 100 g 3 11/25/19 23 Active finasteride (Proscar) 5 MG tablet 07/08/19 24 Active FLUoxetine (PROzac) 40 MG capsule 40 mg in the morning. 2 cap a day 07/08/19 24 Active terazosin (Hytrin) 5 MG capsule Take 5 mg by mouth 1 (one) time. 07/08/19 24 Active primidone (Mysoline) 50 MG tablet Take 50 mg by mouth at bedtime. 09/26/19 24 Active topiramate (Topamax) 25 MG tablet Take 25 mg by mouth at bedtime. 08/26/19 24 Active Linzess 290 MCG capsule Take 290 mcg by mouth in the morning. 08/05/19 24 Active methocarbamol (Robaxin) 500 MG tablet PLEASE SEE ATTACHED FOR DETAILED DIRECTIONS 11/16/19 24 Active lidocaine (Lidoderm) 5 % patchIndicatio ns:Flank pain Apply 1 patch topically Once per day. Remove & discard patch within 12 hours or as directed by MD. 30 patch 1 12/01/19 24 Active omega-3 (fish oil) 1000 MG capsule Take 1 capsule (1,000 mg) by mouth Once per day. 90 capsule 1 12/01/19 24 025 Active Multiple Vitamins-[place] als (CertaVite/Ant ioxidants) tablet Take 1 tablet by mouth in the morning. 90 tablet 3 12/20/19 24 Active atorvastatin (Lipitor) 80 MG tablet Take 1 tablet (80 mg) by mouth Once per day. TAKE 1 TABLET BY MOUTH AT BEDTIME 90 tablet 3 02/23/20 24 Active aspirin (Aspirin Low Dose) 81 MG EC tabletIndicati ons:TIA (transient ischemic attack) TAKE 1 TABLET BY MOUTH EVERY MORNING 90 tablet 1 06/28/19 25 Active omega-3 acid ethyl esters (Lovaza) 1 g capsule TAKE 1 CAPSULE BY MOUTH EVERY MORNING 90 capsule 1 02/13/20 25 Active aspirin (Aspirin Adult Low Strength) 81 MG EC tabletIndicati ons:TIA (transient ischemic attack) TAKE 1 TABLET BY MOUTH EVERY MORNING 90 tablet 1 11/18/19 24 025 Discontinued Active Problems Problem Noted Date Diagnosed Date Poor memory 03/03/2024 Overweight 03/03/2024 Blurry vision 03/03/2024 Dark stools 03/03/2024 Prediabetes 12/01/2023 Skin lumps 10/18/2023 Mild anxiety 07/18/2023 Dental calculus 03/24/2023 Localized gingival recession, moderate Missing teeth, acquired 03/24/2023 Dental abscess 03/24/2023 [...] hemorrhoids and left sided diverticulosis Atherosclerosis of [place] co ronary artery of [place] heart with stable angina pectoris 08/10/2022 Overview (11/24/2022): Cardiac hx Chest pain continued SOB Leg swelling Assessment & Plan (11/24/2022 6:12 PM EDT): Try and locate Cards notes Check BNP F/u PRN Gastroesophageal reflux disease 06/14/2022 Migraine without aura and wi thout status migrainosus, not intractable 06/07/2022 Overview (02/02/2023): Care Managed by [facility] - Pt has chronic left hinduism migraine. Injury to L hinduism about 3 years ago. 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 and passing out Care Managed by [facility] Last appt 04/28/22 Treating Keppra 250mg [...] to locate records Gave pt card with [facility] Fax number and have all specialists [...] intervention and Patient to reach out to [facility] team as needed Rule Out Diagnoses n/a [...] Encounters Date Type Department Care Team Description 06/28/2024 Refill [facility] [address] [place] [address] Sherri Selby MD TIA (transient ischemic attack) 06/26/2024 1:00 PM EST Office Visit [facility] ADULT DENTAL [address] [place] [address] Divina Vickers Encounter for dental examination (Primary Dx); Dental calculus; Dental plaque; Dental caries 06/08/2024 Telephone [facility] [address] [place] [address] Chrissy Olivera MA August06/06/2024 Telephone [facility] [address] [place] [address] Christine Moses, BLADDER TIER Follow-up 05/31/2024 Orders Only GENERIC EXTERNAL DATA DEPARTMENT Provider, Generic External Data 05/31/2024 Telephone [facility] [address] [place] [address] Sherri Selby MD Durable Medical Equipment 04/20/2024 Telephone [facility] [address] [place] [address] Sherri Selby MD FYI 04/17/2024 Orders Only GENERIC EXTERNAL DATA DEPARTMENT Provider, Generic External Data 04/10/2024 Orders Only [facility] External Provider, [facility] 04/05/2024 Telephone [facility] [address] [place] [address] Sherri Selby MD [facility] (Nadia, the patient's daughter, is requesting [facility] to be able to care for him, due to his poor memory issues. I called him to ask for her telephone number, because the forms nurse needs more information, in order to complete the form. He provided Nadia's number, and the nurse will reach out to her today.) 04/03/2024 Telephone [facility] [address] [place] [address] Sherri Selby MD 04/03/2024 Telephone [facility] [address] [place] [address] Sherri Selby MD 04/02/2024 Telephone [facility] [address] [place] [address] Sherri Selby MD 03/30/2024 Orders Only [facility] [address] [place] [address] Sherri Selby MD 03/29/2024 Orders Only [facility] [address] [place] [address] Sherri Selby MD Lipoma of lower extremity, unspecified laterality (Primary Dx) 03/29/2024 Telephone [facility] [address] [place] [address] Mirta Hernandez RN Results from Last 3 Months Immunizations Name Administration [...] Sign Reading Time Taken Comments Blood Pressure 118/80 06/26/2024 1:00 PM EST Pulse 60 06/26/2024 1:00 PM EST Temperature 36.6 ??C (97.8 ??F) 03/28/2024 [...] Care Team (Late st Contact Info) Description 08/17/2024 9:00 AM EDT Office Visit [facility] [address] [place] [address] Sherri Selby MD [address] [place] [address] Health Maintenance Due Date Last Done Comments CT Colonography 1960 Colonoscopy 1960 FIT DNA/Cologuard 1960 Sigmoidoscopy 1960 Pneumococcal Vaccine: 50+ Years (1 of 2 - PCV) 1979 Hepatitis B Vaccines (3 of 3 - 19+ 3-dose series) 06/08/2024 01/10/2024, 12/07/2023 Depression Monitoring (PHQ-9) 09/25/2024 03/28/2024, 03/28/2024 SDOH Screening 10/10/2024 10/11/2023 Diabetes: Hemoglobin A1C 11/15/2024 024, 08/10/2022, 10/28/2021 Dental Oral Exam 12/25/2024 06/26/2024, 01/2023, 12/24/2021, Additional history exists Dental Prophylaxis 12/25/2024 06/26/2024, 0 10/18/2023, 03/24/2023, Additional history exists Colorectal Cancer Screening 03/07/2025 FIT 03/07/2025 03/07/2024, 06/05/2023 FOBT 03/07/2025 03/07/2024, 06/05/2023 Alcohol/Substance Use Screening 03/28/2025 03/28/2024 Depression Screening 03/28/2025 03/28/2024, 03/28/20 24 Tobacco Screening 06/26/2025 06/26/2024 Dental X-Ray: Bitewings 06/27/2025 06/26/19 25, 03/24/2023, 12/24/2021, Additional history exists Dental X-Ray: Full Mouth 03/25/2026 023, 05/02/2019, [...] Procedure Name Priority Date/Time Associated Diagnosis Comments COMPREHENSIVE PERIODONTAL EVALUATION - NEW OR ESTABLISHED PATIENT Routine 06/26/2024 1:00 PM EST Encounter for dental examination Dental calculus Dental plaque Dental caries CASE PRESENTATION, DETAILED AND EXTENSIVE TREATMENT PLANNING Routine 06/26/2024 1:00 PM EST INTRAORAL - PERIAPICAL EACH ADDITIONAL RADIOGRAPHIC IMAGE Routine 06/26/2024 1:00 PM EST INTRAORAL - PERIAPICAL EACH ADDITIONAL RADIOGRAPHIC IMAGE Routine 06/26/2024 1:00 PM EST BITEWINGS - 4 RADIOGRAPHIC IMAGES Routine 06/26/2024 1:00 PM EST ORAL HYGIENE INSTRUCTIONS Routine 06/26/2024 1:00 PM EST PROPHYLAXIS - ADULT Routine 06/26/2024 1 :00 PM EST INTRAORAL - PERIAPICAL EACH ADDITIONAL RADIOGRAPHIC IMAGE Routine 06/26/2024 1:00 PM EST INTRAORAL - PERIAPICAL FIRST RADIOGRAPHIC IMAGE Routine 06/26/2024 1:00 PM EST PERIODIC ORAL EVALUATION - ESTABLISHED PATIENT Routine 06/26/2024 1:00 PM EST Encounter for dental examination Dental calculus Dental plaque Dental caries CTA HEAD NECK W AND WO CONTRAST [...] RANDOM URINE Routine 03/30/2024 7:30 AM EST LIPID PANEL, STANDARD Routine 03/19/2024 11:05 AM EST Mixed hyperlipidemia FECAL GLOBIN BY IMMUNOCHEMISTRY Routine 03/07/2024 12:00 AM EDT HEPATITIS C AB W/REFL TO HCV RNA, QN, PCR Routine 11/16/2023 12:08 PM EDT Annual physical exam HIV 1/2 ANTIGEN/ANTIBODY, FOURTH GENERATION W/RFL Routine 11/16/2023 12:08 PM EDT Annual physical exam HEMOGLOBIN A1C Routine 11/16/2023 12:08 PM EDT Annual physical exam INTRAORAL - COMPLETE SERIES OF RADIOGRAPHIC IMAGES Routine 03/24/2023 11:00 AM EST Dental calculus Localized gingival recession, moderate Missing teeth, acquired Dental abscess from Last 3 Months or Most Recently Relevant to Health Maintenance Results * CT Cervical Spine w/o Contrast (05/31/2024 2:39 PM EST) Anatomical Region Laterality Modality Spine, C-spine Computed Tomogra phy 05/31/2024 2:39 PM EST Narrative 05/31/2024 3:51 PM EST ? [facility] ?[address] ?[place] [address] ? CT Scan Report ? Signed ? Patient: Inderjit Stoner ?MR ?? #: [id number] ? : 1960 ?Acct:[id number] ? Age/Sex: 63 / M ?ADM Date: 05/31/24 ? Loc: HO.ED ? Attending Dr: ? Ordering Physician: Tala Delgadillo ?? Date of Service: 05/31/24 ?? Procedure(s): CT cervical spine wo IV con ?? Accession Number(s): [id number] ? cc: Tala Delgadillo; Sherri Selby MD ? Report Number: ?? [id number]: Total DLP = ??591.42 mGy-cm ?? EXAMINATION: [...] DD/ 1439 ? TD/TT: 05/31/24 1517 ? Hearing Aid Dispenser: ? Procedure Note Donartemioter, Image - 05/31/[address] [place] [address] [address] Scan Report Signed Patient: Inderjit Stoner [facility] #: [id number] : 1960cct:[id number] Age/Sex: 63 / MADM Date: 05/31/24 Loc: HO.ED Attending Dr: Ordering Physician: Tala Delgadillo Date of Service: 05/31/24 Procedure(s): CT cervical spine wo IV con Accession Number(s): [id number] cc: Tala Delgadillo; Sherir Selby MD Report Number: [id number]: Total DLP = 591.42 mGy-cm EXAMINATION: CT [...] Blu Farrell MD 05/31/2024 03:48 PM EST RP Dictated By: Blu Mijares MD Signed By: <Electronically signed by Blu Moses MDin OV> 05/31/24 1548 DD/ 1439 TD/TT: 05/31/24 1517 Hearing Aid Dispenser: [facility] External Provider IMG CT PROCEDURES Final Result * CTA Head Neck w/ and w/o Contrast (05/31/2024 2:39 PM EST) Anatomical Region Laterality Modality Head, Neck Computed Tomogra phy 05/31/2024 2:39 PM EST Narrative 05/31/2024 4:04 PM EST ? [facility] ?[address] ?[place] [address] ? CT Scan Report ? Signed ? Patient: Inderjit Stoner ?MR ?? #: [id number] ? : 1960 ?Acct:[id number] ? Age/Sex: 63 / M ?ADM Date: 01/16/25 ? Loc: HO.ED ? Attending Dr: ? Ordering Physician: Tala Delgadillo ?? Date of Service: 05/31/24 ?? Procedure(s): CT angio head neck ?? Accession Number(s): [id number] ? cc: Tala Delgadillo; Sherri Selby MD ? Report Number: ?? [id number]: Total DLP = 2963.00 mGy-cm ?? EXAMINATION: [...] The data was ?? processed at the lab technologist's workstation for generation of MIP ?? [...] segment is diminutive. ?? origin of the APPAREL MANAGER with robust opacification of the posterior ?? communicating artery. Normal opacification of the distal APPAREL MANAGER segments. ?? -LEFT POSTERIOR CEREBRAL ARTERY: Normal P1 segment. Normal ?? opacification of the distal APPAREL MANAGER segments. ?? -POSTERIOR COMMUNICATING ARTERIES: Left is [...] ??Osmin Lainez MD ??05/31/2024 04:01 PM EST ?? Workstation: [id number] ? Dictated By: ?Osmin Lainez MD ? Signed By: ?<Electronically signed by Osmin Lainez MD in OV> ?05/31/24 1601 ? DD/ 1439 ? TD/TT: 05/31/24 1515 ? Hearing Aid Dispenser: ? Procedure Note Brooke, Image - 05/31/[address] [address] [address] Scan Report Signed Patient: Inderjit Stoner [facility] #: [id number] : 1960cct:[id number] Age/Sex: 63 / MADM Date: 05/31/24 Loc: HO.ED Attending Dr: Ordering Physician: Tala Delgadillo Date of Service: 05/31/24 Procedure(s): CT angio head neck Accession Number(s): [id number] cc: Tala Delgadillo; Sherri Selby MD Report Number: [id number]: Total DLP = 2963.00 mGy-cm EXAMINATION: CT [...] obtained. The data was processed at the lab technologist's workstation for generation of MIP sequences. [...] P1 segment is diminutive. origin of the APPAREL MANAGER with robust opacification of the posterior communicating artery. Normal opacification of the distal APPAREL MANAGER segments. -LEFT POSTERIOR CEREBRAL ARTERY: Normal P1 segment. Normal opacification of the distal APPAREL MANAGER segments. -POSTERIOR COMMUNICATING ARTERIES: Left is not [...] Osmin Lainez MD 05/31/2024 04:01 PM EST Dictated By: Osmin Lainez MD Signed By: <Electronically signed by Osmin Lainez MD in OV> 05/31/24 1601 DD/ 1439 TD/TT: 05/31/24 1515 Hearing Aid Dispenser: [facility] External Provider IMG CT PROCEDURES Final Result * SARS-CoV-2 RNA, Influenza A/B, and RSV RNA, Ql NAAT (05/31/2024 1:49 PM EST) Influenza A PCR NEGATIVE Negative [facility] Influenza B PCR NEGATIVE Negative [facility] Resp Syncy Virus RNA Qual PCR NEGATIVE Negative [facility] SARS COV2 PCR NEGATIVE Negative [facility] Comment:All test results mus t [...] use by authorized laboratories.Testing performed on the CodefiedXpert utilizingreal-time RT-PCR.All SARS CoV2 and positive influenza A/B results arereported to [facility]. 05/31/2024 1:49 PM EST 05/31/2024 2:25 PM EST Generic External Data Provider LAB MICROBIOLOGY - GENERAL ORDERABLES Final Result Performing Organization Address [facility] Phone Number [facility] [address] [place] [phone] * High Sensitivity Troponin I (05/31/2024 1:41 PM EST) Pathologist [facility] TROPONIN I HIGH SENSITIVITY <2.7 <3.5 - 35.0 ng/L [facility] Comment:The [place] high sens itivity Troponin-I results should beused in conjunction with other diagnostic information suchas ECG, clinical observations and information, and patientsymptoms to aid in the diagnosis of [place]. 05/31/2024 1:41 PM EST 05/31/2024 1:44 PM EST Generic External Data Provider LAB BLOOD ORDERAB LES Final Result Performing Organization Address [facility] Phone Number [facility] [address] [place] [phone] * CBC auto differential (05/31/2024 1:41 PM EST) White Blood Count 5.3 4.8 - 10.8 X10*3/uL [facility] Red Blood Count 5.32 4.60 - 5.80 X10*6/uL [facility] Hemoglobin 14.7 14.0 - 18.0 g/dl [facility] Hematocrit 45.4 42.0 - 52.0 % [facility] Mean Corpuscular Volume 85.3 80.0 - 98.0 fL [facility] Mean Corpuscular Hemoglobin 27.6 27.0 - 33.0 pg [facility] Mean Corpuscular HGB Conc 32.4 31.0 - 36.0 g/dl [facility] Red Cell Distribution Width 13.2 11.0 - 16.0 % [facility] Platelet Count 176 160 - 400 X10*3/uL [facility] Mean Platelet Volume 9.8 9.4 - 12.4 fL [facility] Neutrophils Percent Auto 70.4 45 - 73 % [facility] Imm Gran Pct Auto 0.4 0.0 - 0.4 % [facility] Lymphocytes Percent Auto 23.3 20 - 40 % [facility] Monocytes Percent Auto 4.9 2 - 11 % [facility] Eosinophils Percent Auto 0.6 0 - 4 % [facility] Basophils Percent Auto 0.4 0 - 2 % [facility] NRBC Pct Auto 0.0 0.0 - 0.2 /100WBC [facility] Neutrophils Absolute Auto 3.7 2.0 - 8.3 x10*3/uL [facility] Imm Gran Abs Auto 0.02 0.00 - 0.03 X10*3/uL [facility] Lymphocytes Absolute Auto 1.2 1.2 - 4.9 X10*3/uL [facility] Monocytes Absolute Auto 0.3 0.1 - 1.2 X10*3/uL [facility] Eosinophils Absolute Auto 0.0 0.0 - 0.4 X10*3/uL [facility] Basophils Absolute Auto 0.0 0.0 - 0.2 X10*3/uL [facility] NRBC Abs Auto 0.000 0.0 - 0.012 X10*3/uL [facility] 05/31/2024 1:41 PM EST 05/31/2024 1:44 PM EST us Generic External Data Provider LAB BLOOD ORDERAB LES Final Result [facility] [address] [place] [address] [phone] * Levetiracetam (05/31/2024 1:41 PM EST) Levetiracetam 10.9 6.0 - 46.0 mcg/mL [facility] Comment:Brivaracetam (Brivia ct(R), Rikelta(R)) exhibitssignificant cross- reactivity in the Levetiracetam(Keppra(R), Spritam(R)) immunoassay. If Brivaracetamhas been prescribed, order test code [id number] by LCMSMS.THIS TEST WAS PERFORMED AT:[employer] [id number] [place] [id number] WHEAT MD,PHD 05/31/2024 1:41 PM EST 05/31/2024 1:44 PM EST Generic External Data Provider LAB BLOOD ORDERAB LES Final Result Performing Organization Address [facility]/ZIP Co de Phone Number [facility] [address] [place] [phone] * Partial Thromboplastin Time, Activated (APTT) (05/31/2024 1:41 PM EST) Partial Thromboplastin Time 28.1 26.0 - 36.8 SEC [facility] Comment:For information rega rding the monitoring of direct thrombininhibitors, please refer to Pharmacy. 05/31/2024 1:41 PM EST 05/31/2024 1:44 PM EST Generic External Data Provider LAB BLOOD ORDERAB LES Final Result Performing Organization Address [facility]/ZIP Co de Phone Number [facility] [address] [place] [phone] [phone] * Prothrombin Time-INR (05/31/2024 1:41 PM EST) Prothrombin Time 12.1 10.9 - 12.4 SEC [facility] INTERNATIONAL NORM RATIO 1.0 0.9 - 1.1 [facility] Comment:INTERNATIONAL NORMAL IZED RATIO (INR) REFERENCE [...] ORDERAB LES Final Result Performing Organization Address [facility]/ZIP Co de Phone Number [facility] [address] [place] [phone] * Magnesium (05/31/2024 1:41 PM EST) Magnesium 2.0 1.6 - 2.6 mg/dL [facility] 05/31/2024 1:41 PM EST 05/31/2024 1:44 PM EST [facility] External Data Provider LAB BLOOD ORDERAB LES Final Result Performing Organization Address [facility] Co de Phone Number [facility] [address] [place] [phone] * (ABNORMAL) Hepatic Function Panel (05/31/2024 1:41 PM EST) Bilirubin, Total 1.0 0.0 - 1.0 mg/dL [facility] Bilirubin, Direct 0.3 0.0 - 0.5 mg/dL [facility] Aspartate Amino Transferase 28 5 - 37 U/L [facility] Alanine Aminotransferase 75(H) 0 - 40 U/L [facility] Total Protein 7.8 6.5 - 8.0 g/dL [facility] Albumin Level 4.4 3.5 - 5.0 g/dL [facility] Alkaline Phosphatase 96 39 - 117 U/L [facility] 05/31/2024 1:41 PM EST 05/31/2024 1:44 PM EST us Generic External Data Provider LAB BLOOD ORDERAB LES Final Result Performing Organization Address City/[facility]/ZIP Co de Phone Number [facility] [address] [place] [address] [phone] * (ABNORMAL) Basic Metabolic Panel (05/31/2024 1:41 PM EST) Sodium 141 135 - 145 mmol/L [facility] Potassium 4.4 3.3 - 5.1 mmol/L [facility] Chloride 109(H) 96 - 108 mmol/L [facility] Carbon Dioxide 27 22 - 29 mmol/L [facility] Anion Gap 9(L) 12 - 20 [facility] Urea Nitrogen (BUN) 20(H) 9 - 16 mg/dL [facility] Creatinine, Serum 1.13 0.5 - 1.4 mg/dL [facility] Creatinine Clr Calc Pharmacy 73.7 [facility] Comment:eGFR (calculated fro m the MDRD study equation) and eCrCl(calculated from the Cockcroft-Gault equation) are based ondifferent parameters and may not yield comparable results.If eCrCl result is absurd, please check patient'sheight/weight. Estimated Glomerular Filt Rate >60 [facility] Comment:Chronic Kidney Disea se: Estimated GFR < 60 mL/min/1.00g6Xayyhk Kidney Disease: Estimated GFR < 15 mL/min/1.73m2 Glucose 102 60 - 115 mg/dL [facility] Calcium 9.3 8.4 - 10.2 mg/dL [facility] 05/31/2024 1:41 PM EST 05/31/2024 1:44 PM EST us Generic External Data Provider LAB BLOOD ORDERAB LES Final Result Performing Organization Address [facility]/ZIP Co de Phone Number [facility] [address] [place] [phone] * Gross and Microscopic Level 3 (04/17/2024 2:00 PM EST) 04/17/2024 2:00 PM EST 04/18/2024 8:18 AM EST Narrative [facility] - 04/19/2024 4:04 PM EST ----- ------- Name: Inderjit Stoner ?Age/Sex: 63/M ? : 1960 Unit#: [id number] ?? Attend Dr: Francesco Winston MD ?Re04/17/24 ?Status: DEP REF ? Location: HO.LNP ?Disch: ? ----- ------- SPEC : [id number] ? RECD: 04/18/24-817 ? STATUS: ??SOUT ? REQ NUM: [id number] ? MARY ANN: 04/17/24-1400 ? SUBM DR: [...] a smooth, moist homogeneous yellow-white cut surface. ??Transportation Dispatcher sections are submitted for microscopic examination in cassettes A1 and A2, 2 pieces each. smc Copies To: ?? Sherri Selby MD ?? [address] [facility] ?? [place] [address] ?? [phone] ?? Francesco Winston MD ?? [facility] ?? [address] ?? [place] [address] ?? [phone] ?? [email or web address] ----- ------- Signed (signature on file) Eugenio Roberts MD 04/19/24 1604 ? ----- ------- ? END OF REPORT ? us Generic External Data Provider LAB CYTOLOGY DARIEN GOLDSTEIN Final Result [facility] [address] [place] [address] [phone] * Stress test with myocardial perfusion (04/10/2024 9:33 AM EST) 04/10/2024 9:33 AM EST Narrative [facility] - 04/14/2024 1:04 PM EST ? [facility] ?[address] ?[place] [address] ?Nuclear Medicine Report ? Signed ? Patient: Vincent Banks,Shemar ?MR ?? #: [id number] ? : 1960 ?Acct:[id number] ? Age/Sex: 63 / M ?ADM Date: 11/26/24 ? Loc: HO.CARD ? Attending Dr: Sharan Mariscal MD ? Ordering Physician: Sharan Mariscal MD ?? Date of Service: 04/10/24 ?? Procedure(s): NM cardiolite stress test ?? Accession Number(s): [id number] ? cc: Sherri Selby MD; Sharan Mariscal [...] by: ??Chin Collins MD ??04/14/2024 01:01 ?? PM EST RP ? Dictated By: ?Chin Collins MD ? Signed By: ?<Electronically signed by Chin Collins MD in OV> ?04/14/24 1301 ? DD/ 0933 ? TD/TT: 04/11/24 1120 ? Hearing Aid Dispenser: ? Procedure Note Donotgarrettinterpreter, Image - 04/14/[address] [address] Nuclear Medicine Report Signed Patient: Inderjit Stoner AMR #: [id number] : 1960cct:[id number] Age/Sex: 63 / MADM Date: 04/10/24 Loc: ANA LAURA Attending Dr: Sharan Mariscal MD Ordering Physician: Sharan Mariscal MD Date of Service: 04/10/24 Procedure(s): NM cardiolite stress test Accession Number(s): [id number] cc: Sherri Selby MD; Sharan Mariscal MD [...] difficult to assess due to subdiaphragmatic uptake. NM/NM cardiolite stress test IMPRESSION: 1. Myocardial perfusion [...] by: Chin Collins MD 04/14/2024 01:01 PM EST RP Dictated By: Chin Collins MD Signed By: <Electronically signed by Chin Collins MD inOV> 04/14/24 1301 DD/ 0933 TD/TT: 04/11/24 1120 Hearing Aid Dispenser: us [facility] External Provider CV STRE SS PROCEDURES Final Result [facility] [address] [place] [address] [phone] * (ABNORMAL) Protein Electrophoresis and Total Protein, Random Urine (03/30/2024 7:30 AM EST) PEU-Random Urine Creatinine 69 20 - 320 mg/dL [facility] PEU-Random Urine Protein 4(A) 5 - 25 mg/dL [facility] PEU-[place]. Prot/Creat Ratio 58 25 - 148 mg/g creat [facility] PEU-Random Urine Albumin 100 % [facility] PEU-Random Urine A1 Globulin 0 % [facility] PEU-Random Urine A2 Globulin 0 % [facility] PEU-Random Urine Beta Globulin 0 % [facility] PEU-Random Ur. Gamma Globulin 0 % [facility] PEU Ran-Abn Protein Band 1 TNP [facility] PEU Ran-Abn Protein Band 2 TNP [facility] PEU Ran-Abn Protein Band 3 TNP [facility] PEU-Random Urine Interpret. SEE NOTE [facility] Comment:Normal PatternThe sy pplier of the testing reagents for this assay haschanged. Detection of small monoclonal proteins mayvary by test system. Urine immunofixation is suggestedif clinically indicated and not already ordered.THIS TEST WAS PERFORMED AT:[facility] [place] [phone] MONTANA MD Protein/Creatinine Ratio 0.058 0.025 - 0.148 [facility] Comment:Result Units: mg/mg creat 03/30/2024 7:30 AM EST 03/30/2024 11:41 AM EST us Sherri Navarro MD LAB URINE ORDERAB LES Final Result [facility] [address] [place], [place] [phone] * (ABNORMAL) Lipid Panel, Standard (03/19/2024 11:05 AM EST) Triglycerides 137 <150 mg/dL [facility] Comment:Desirable Triglyceri de: less than 150 mg/dLBorderline High Triglyceride 150-199 mg/dLHigh Triglyceride: 200-499 mg/dLVery High Triglyceride: greater than or equal to 5OO mg/dL Cholesterol 143 <200 mg/dL [facility] Comment:Desirable Cholestero l: less than 200 mg/dLBorderline High Cholesterol: 200-239 mg/dLHigh Cholesterol: greater than 239 mg/dL LDL Cholesterol Calculated 76 <100 mg/dL [facility] Comment:Desirable LDL: less than 100 mg/dLNear Optimal/Above Optimal LDL: 110- 129 mg/dLBorderline High LDL: 130-159 mg/dLHigh LDL: 160-189 mg/dLVery High LDL: greater than or equal to 190 mg/dL HDL Cholesterol 40(L) >40 mg/dL [facility] Comment:Desirable HDL: great er than 40 mg/dL Note: This HDL assay may give artificially low results in patients with liver disease. Blood Venous blood specimen / Unknown 03/19/2024 11:05 AM EST 03/19/2024 11:05 AM EST Sherri Navarro MD LAB BLOOD ORDERAB LES Final Result Performing Organization Address City/[facility] Co de Phone Number [facility] [address] [place] [phone] * Fecal Globin by Immunochemistry (03/07/2024 12:00 AM EDT) Fecal Globin By Immunochemistry SEE NOTE [facility] [place] [facility] Comment: ??FECAL GLOBIN BY IMMUNOCHEMISTRY ?Micro Number: ?[id number] ??Test Status: ? Final ??Specimen Source: ?? Insure (tm) fobt test card ??Specimen Quality: ??Adequate ??Fecal Globin: ?Not Detected 03/07/2024 03/15/2024 5:1 8 AM EDT Narrative [facility] - 03/15/2024 4:25 PM EDT FASTING: UNKNOWN [facility] External Provider LAB BODY FLUIDS AND STOOLS ORDERABLES Final Result Performing Organization Address City/[facility] Co de Phone Number [facility] [address], [place] [address] [facility] [place] [facility] [address] [place] [phone] * Hepatitis C Antibody with Reflex to HCV, RNA, Quantitative, Real-Time PCR (11/16/2023 12:08 PM EDT) Hepatitis C Antibody Nonreactive Nonreactive [facility] Comment:Antibodies to HCV no t detected; does not exclude early acuteHCV infection. Blood Venous blood specimen / Unknown 11/16/2023 12:08 PM EDT 11/16/2023 12:08 PM EDT Sherri Navarro MD LAB BLOOD ORDERAB LES Final Result Performing Organization Address [facility]/ZIP Co de Phone Number [facility] [address] [place] [address] [phone] * HIV-1/2 Antigen and Antibodies, Fourth Generation, with Reflexes (11/16/2023 12:08 PM EDT) HIV AB/AG Nonreactive Nonreactive [facility] Comment:HIV-1 p24 Ag and/or HIV-1/HIV-2 Ab not detected.A test result that is nonreactive does not exclude thepossibility of exposure to or infection with HIV-1 and/orHIV-2. Nonreactive results in this assay for individualswith prior exposure to HIV-1 and/or HIV-2 may be due toantigen and antibody levels that are below the limit ofdetection of this assay.The [employer] HIV Ag/Ab Combo assay result andsupplemental assay results should be interpreted inconjunction with the patient's clinical presentation,history and other laboratory results. If the results areinconsistent with clinical evidence, additional testing issuggested to confirm the result. Blood Venous blood specimen / Unknown 11/16/2023 12:08 PM EDT 11/16/2023 12:08 PM EDT us Sherri Navarro MD LAB BLOOD ORDERAB LES Final Result Performing Organization Address City/[facility]/ZIP Co de Phone Number [facility] [address] [place] [address] [phone] * Hemoglobin A1c (11/16/2023 12:08 PM EDT) Hemoglobin A1c 5.8 <6.0 % [facility] Comment:Hemoglobin A1C Refer ence Range Adults: 4.8 - 6.0 % Non diabetic: < 6.0 % Goal: < 7.0 %Additional Action Suggested: > 8.0 %Note: Hemoglobin A1c results are invalid for patients with abnormal amounts of HbF. Blood transfusions may impact the HbA1c concentration in the patient sample. Estimated Average Glucose 120 mg/dL [facility] Comment:eAG = Estimated ave rage glucose which is %A1C expressed asaverage glucose, using the formula of the E9J-DoqqxplBasujii Glucose study (ADAG), Diabetes Care, Vol.31,#8,Dec. 2007 Blood Venous blood specimen / Unknown 11/16/2023 12:08 PM EDT 11/16/2023 12:08 PM EDT Sherri Navarro MD LAB BLOOD ORDERAB LES Final Result Performing Organization Address City/State/[facility] Co de Phone Number [facility] [address] [place] [address] [phone] from Last 3 Months or Most Recently Relevant to Health Maintenance Insurance - [facility] DENTAL - [facility] Care Teams Clinical Education Specialist Relationship Specialty Start Date End Date Sherri Selby MD [address] [place] [address] PCP - General Internal Medicine 02/02/23
--- OUTSIDE RECORDS SUMMARY | 2024-06-29 09:04 | XMS_ITS | Encounter Summary ---
Author Organization [employer] Address [address] [place] [address] Care Team Providers Care Procurement Engineer Name Role Phone Sherri Selby MD Primary [...] - 05/31/2024 1:48 PM EST CTA at [facility] ED 05/31/24 showed approximate 20% stenosis in [...] Description 08/17/2024 9:00 AM EDT Office Visit [facility] [address] [place] [phone] Sherri Selby MD [address] [place] [address] documented as of this encounter Procedures Procedure [...] EST Narrative 05/31/2024 4:04 PM EST ? [facility] ?[address] ?[place] [address] ? CT Scan Report ? Signed ? Patient: Inderjit Stoner ?MR ?? #: [id number] ? : 1960 ?Acct:[id number] ? Age/Sex: 63 / M ?ADM Date: 05/31/24 ? Loc: HO.ED ? Attending Dr: ? Ordering Physician: Tala Delgadillo ?? Date of Service: 05/31/24 ?? Procedure(s): CT angio head neck ?? Accession Number(s): [id number] ? cc: Tala Delgadillo; Sherri Selby MD ? Report Number: ?? [id number]: Total DLP = 2963.00 mGy-cm ?? EXAMINATION: [...] The data was ?? processed at the histology technologist's workstation for generation of MIP ?? [...] segment is diminutive. ?? origin of the BLANCHING MACHINE OPERATOR with robust opacification of the posterior ?? communicating artery. Normal opacification of the distal BLANCHING MACHINE OPERATOR segments. ?? -LEFT POSTERIOR CEREBRAL ARTERY: Normal P1 segment. Normal ?? opacification of the distal BLANCHING MACHINE OPERATOR segments. ?? -POSTERIOR COMMUNICATING ARTERIES: Left is [...] DD/ 1439 ? TD/TT: 05/31/24 1515 ? Rib Knitter: ? Procedure Note Brooke, Image - 05/31/[address] [address] [address] Scan Report Signed Patient: Inderjit Stoner [facility]R #: [id number] : 1Acct:[id number] Age/Sex: 63 / MADM Date: 05/31/24 Loc: HO.ED Attending Dr: Ordering Physician: Tala Delgadillo Date of Service: 05/31/24 Procedure(s): CT angio head neck Accession Number(s): [id number] cc: Tala Delgadillo; Shreri Selby MD Report Number: [id number]: Total DLP = 2963.00 mGy-cm EXAMINATION: CT [...] obtained. The data was processed at the histology technologist's workstation for generation of MIP sequences. [...] P1 segment is diminutive. origin of the BLANCHING MACHINE OPERATOR with robust opacification of the posterior communicating artery. Normal opacification of the distal BLANCHING MACHINE OPERATOR segments. -LEFT POSTERIOR CEREBRAL ARTERY: Normal P1 segment. Normal opacification of the distal BLANCHING MACHINE OPERATOR segments. -POSTERIOR COMMUNICATING ARTERIES: Left is not [...] 05/31/24 1601 DD/ 1439 TD/TT: 05/31/24 1515 Rib Knitter: [facility] External Provider IMG CT PROCEDURES Final Result * CT Cervical Spine w/o Contrast (05/31/2024 2:39 PM EST) Anatomical Region Laterality Modality Spine, C-spine Computed Tomogra phy 05/31/2024 2:39 PM EST Narrative 05/31/2024 3:51 PM EST ? [facility] ?[address] ?[place] [address] ? CT Scan Report ? Signed ? Patient: Vincent BanksShemar ?MR ?? #: [id number] ? : 1960 ?Acct:[id number] ? Age/Sex: 63 / M ?ADM Date: 05/31/24 ? Loc: HO.ED ? Attending Dr: ? Ordering Physician: Tala Delgadillo ?? Date of Service: 05/31/24 ?? Procedure(s): CT cervical spine wo IV con ?? Accession Number(s): [id number] ? cc: Tala Delgadillo; Sherri Selby MD ? Report Number: ?? [id number]: Total DLP = ??591.42 mGy-cm ?? EXAMINATION: [...] DD/ 1439 ? TD/TT: 05/31/24 1517 ? Rib Knitter: ? Procedure Note Brooke, Image - 05/31/[address] [address] [address] Scan Report Signed Patient: Inderjit Stoner [facility] #: [id number] : 1Acct:[id number] Age/Sex: 63 / MADM Date: 05/31/24 Loc: HO.ED Attending Dr: Ordering Physician: Tala Delgadillo Date of Service: 05/31/24 Procedure(s): CT cervical spine wo IV con Accession Number(s): [id number] cc: Tala Delgadillo; Sherri Selby MD Report Number: [id number]: Total DLP = 591.42 mGy-cm EXAMINATION: CT [...] 05/31/24 1548 DD/ 1439 TD/TT: 05/31/24 1517 Rib Knitter: [facility] External Provider IMG CT PROCEDURES Final Result * SARS-CoV-2 RNA, Influenza A/B, and RSV RNA, Ql NAAT (05/31/2024 1:49 PM EST) Influenza A PCR NEGATIVE Negative [facility] Influenza B PCR NEGATIVE Negative [facility] Resp Syncy Virus RNA Qual PCR NEGATIVE Negative [facility] SARS COV2 PCR NEGATIVE Negative [facility] Comment:All test results mus t [...] use by authorized laboratories.Testing performed on the [employer]View GeneXpert utilizingreal-time RT-PCR.All SARS CoV2 and positive influenza A/B results arereported to [facility]. 05/31/2024 1:49 PM EST 05/31/2024 2:25 PM EST us Generic External Data Provider LAB MICROBIOLOGY - GENERAL ORDERABLES Final Result [facility] [address] [place] [phone] * Levetiracetam (05/31/2024 1:41 PM EST) Levetiracetam 10.9 6.0 - 46.0 mcg/mL [facility] Comment:Brivaracetam (Brivia ct(R), Rikelta(R)) exhibitssignificant cross- reactivity in the Levetiracetam(Keppra(R), Spritam(R)) immunoassay. If Brivaracetamhas been prescribed, order test code [id number] by LCMSMS.THIS TEST WAS PERFORMED AT:[id number] [place] [address]VYNMLKPLOBO WHEAT MD,PHD 05/31/2024 1:41 PM EST 05/31/2024 1:44 PM EST Generic External Data Provider LAB BLOOD ORDERAB LES Final Result Performing Organization Address [facility] de Phone Number [facility] [address] [place] [phone] * High Sensitivity Troponin I (05/31/2024 1:41 PM EST) Pathologist [facility] TROPONIN I HIGH SENSITIVITY <2.7 <3.5 - 35.0 ng/L [facility] Comment:The Martinez high sens itivity Troponin-I results should beused in conjunction with other diagnostic information suchas ECG, clinical observations and information, and patientsymptoms to aid in the diagnosis of [place]. 05/31/2024 1:41 PM EST 05/31/2024 1:44 PM EST Generic External Data Provider LAB BLOOD ORDERAB LES Final Result Performing Organization Address [facility] Phone Number [facility] [address] [place] [phone] * Partial Thromboplastin Time, Activated (APTT) (05/31/2024 1:41 PM EST) [facility] Partial Thromboplastin Time 28.1 26.0 - 36.8 SEC [facility] Comment:For information rega rding the monitoring of direct thrombininhibitors, please refer to Pharmacy. 05/31/2024 1:41 PM EST 05/31/2024 1:44 PM EST Generic External Data Provider LAB BLOOD ORDERAB LES Final Result Performing Organization Address [facility] de Phone Number [facility] [address] [place] [phone] * Prothrombin Time-INR (05/31/2024 1:41 PM EST) Prothrombin Time 12.1 10.9 - 12.4 SEC [facility] INTERNATIONAL NORM RATIO 1.0 0.9 - 1.1 [facility] Comment:INTERNATIONAL NORMAL IZED RATIO (INR) [...] ORDERAB LES Final Result Performing Organization Address [place] Co de Phone Number [facility] [address] [place] [phone] * Magnesium (05/31/2024 1:41 PM EST) Pathologist [facility] Magnesium 2.0 1.6 - 2.6 mg/dL [facility] 05/31/2024 1:41 PM EST 05/31/2024 1:44 PM EST [facility] External Data Provider LAB BLOOD ORDERAB LES Final Result Performing Organization Address [facility] de Phone Number [facility] [address] [place] [phone] * (ABNORMAL) Basic Metabolic Panel (05/31/2024 1:41 PM EST) Pathologist [facility] Sodium 141 135 - 145 mmol/L [facility] Potassium 4.4 3.3 - 5.1 mmol/L [facility] Chloride 109(H) 96 - 108 mmol/L [facility] Carbon Dioxide 27 22 - 29 mmol/L [facility] Anion Gap 9(L) 12 - 20 [facility] Urea Nitrogen (BUN) 20(H) 9 - 16 mg/dL [facility] Creatinine, Serum 1.13 0.5 - 1.4 mg/dL [facility] Creatinine Clr Calc Pharmacy 73.7 [facility] Comment:eGFR (calculated fro m the MDRD study equation) and eCrCl(calculated from the Cockcroft-Gault equation) are based ondifferent parameters and may not yield comparable results.If eCrCl result is absurd, please check patient'sheight/weight. Estimated Glomerular Filt Rate >60 [facility] Comment:Chronic Kidney Disea se: Estimated GFR < 60 mL/min/1.01g1Jzzyzi Kidney Disease: Estimated GFR < 15 mL/min/1.73m2 Glucose 102 60 - 115 mg/dL [facility] Calcium 9.3 8.4 - 10.2 mg/dL [facility] 05/31/2024 1:41 PM EST 05/31/2024 1:44 PM EST us Generic External Data Provider LAB BLOOD ORDERAB LES Final Result [facility] [address] [place] [address] [phone] * (ABNORMAL) Hepatic Function Panel (05/31/2024 1:41 PM EST) Bilirubin, Total 1.0 0.0 - 1.0 mg/dL [facility] Bilirubin, Direct 0.3 0.0 - 0.5 mg/dL [facility] Aspartate Amino Transferase 28 5 - 37 U/L [facility] Alanine Aminotransferase 75(H) 0 - 40 U/L [facility] Total Protein 7.8 6.5 - 8.0 g/dL [facility] Albumin Level 4.4 3.5 - 5.0 g/dL [facility] Alkaline Phosphatase 96 39 - 117 U/L [facility] 05/31/2024 1:41 PM EST 05/31/2024 1:44 PM EST us Generic External Data Provider LAB BLOOD ORDERAB LES Final Result [facility] [address] [place] [phone] * CBC auto differential (05/31/2024 1:41 PM EST) White Blood Count 5.3 4.8 - 10.8 X10*3/uL [facility] Red Blood Count 5.32 4.60 - 5.80 X10*6/uL [facility] Hemoglobin 14.7 14.0 - 18.0 g/dl [facility] Hematocrit 45.4 42.0 - 52.0 % [facility] Mean Corpuscular Volume 85.3 80.0 - 98.0 fL [facility] Mean Corpuscular Hemoglobin 27.6 27.0 - 33.0 pg [facility] Mean Corpuscular HGB Conc 32.4 31.0 - 36.0 g/dl [facility] Red Cell Distribution Width 13.2 11.0 - 16.0 % [facility] Platelet Count 176 160 - 400 X10*3/uL [facility] Mean Platelet Volume 9.8 9.4 - 12.4 fL [facility] Neutrophils Percent Auto 70.4 45 - 73 % [facility] Imm Gran Pct Auto 0.4 0.0 - 0.4 % [facility] Lymphocytes Percent Auto 23.3 20 - 40 % [facility] Monocytes Percent Auto 4.9 2 - 11 % [facility] Eosinophils Percent Auto 0.6 0 - 4 % [facility] Basophils Percent Auto 0.4 0 - 2 % [facility] NRBC Pct Auto 0.0 0.0 - 0.2 /100WBC [facility] Neutrophils Absolute Auto 3.7 2.0 - 8.3 x10*3/uL [facility] Imm Gran Abs Auto 0.02 0.00 - 0.03 X10*3/uL [facility] Lymphocytes Absolute Auto 1.2 1.2 - 4.9 X10*3/uL [facility] Monocytes Absolute Auto 0.3 0.1 - 1.2 X10*3/uL [facility] Eosinophils Absolute Auto 0.0 0.0 - 0.4 X10*3/uL [facility] Basophils Absolute Auto 0.0 0.0 - 0.2 X10*3/uL [facility] NRBC Abs Auto 0.000 0.0 - 0.012 X10*3/uL [facility] 05/31/2024 1:41 PM EST 05/31/2024 1:44 PM EST us Generic External Data Provider LAB BLOOD ORDERAB LES Final Result [facility] [address] [place] [address] [phone] documented in this encounter Visit Diagnoses Not on filedocumented in this encounter Additional Health Concerns Assessment Noted Time PHQ-9 Depression Total Score: 12 024 3:28 PM EST documented as of this encounter Care Teams Procurement Engineer Relationship Specialty Start Date End Date Sherri Selby MD [address] [place] [phone] PCP - General Internal Medicine 02/02/23 documented as of this encounter
--- OUTSIDE RECORDS SUMMARY | 2024-06-29 09:04 | XMS_ITS | Encounter Summary ---
Author Organization [employer] Address [address] [place] [address] Care Team Providers Care Electric Blasting Cap Assembler Name Role Phone Sherri Selby MD Primary Care Pro vider Reason for Visit * Reason Onset Date Comments August Recall 06/08/2024 Encounter Details Date Type Department Care Team (Late st Contact Info) Description 06/08/2024 Telephone [facility] [address] [place] [address] Chrissy Olivera MA August Recall Social History [...] MA - 06/08/2024 9:54 AM EST T/C- Corporate Treasurer and Patient made a Office Visit Extended appointment with Jamari for August. Appointment reminder sent via mail. documented in this encounter Plan of Treatment Upcoming Encounters Date Type Department Care Team (Late st Contact Info) Description 08/17/2024 9:00 AM EDT Office Visit [facility] [address] [place] [phone] Sherri Selby MD [address] [place] [phone] documented as of this encounter Visit Diagnoses Not on filedocumented in this encounter Additional Health Concerns Assessment Noted Time PHQ-9 Depression Total Score: 12 024 3:28 PM EST documented as of this encounter Care Teams Electric Blasting Cap Assembler Relationship Specialty Start Date End Date Sherri Selby MD [address] [place] [phone] PCP - General Internal Medicine 02/02/23 documented as of this encounter
--- OUTSIDE RECORDS SUMMARY | 2024-06-29 09:04 | XMS_ITS | Clinical Summary ---
Author Organization [facility] Address [address] [place] [address] Phone Care Team Providers Care Product Test Specialist Name Role Phone Unavailable Primary Care Provider Unavailabl e Social History Tobacco Use Types Packs/Day Years Used Date Smoking Tobacco: Never Assessed Sex and Gender Information Value Date Recorded Sex Assigned at Not on file Legal Sex Male 4:50 AM EST Gender Identity Not on file Sexual Orientation Not on file Plan of Treatment Health Maintenance Due Date Last Done Comments DTaP,Tdap,and Td Vaccines (1 - Tdap) 1967 Pneumococcal Vaccine: 50+ Ye ars (1 of 1 - PCV) 2010 Zoster Vaccines (1 of 2) 2010 Cholesterol [...] patient's age to complete this topic Meningococcal B Vacine Aged Out No lo nger eligible based on patient's age to complete [...]
--- OUTSIDE RECORDS SUMMARY | 2024-06-29 09:04 | XMS_ITS | Encounter Summary ---
Author Organization [facility] Address [address] [facility] 7 [place] [address] Care Team Providers Care Director Post Name Role Phone Sherri Selby MD Primary Care Pro vider Reason for Visit * Reason Onset Date Comments Durable Medical Equipment 05/31/2024 Encounter Details Date Type Department Care Team (Late st Contact Info) Description 05/31/2024 Telephone [facility] MEDICINE [address] [place], [place] [phone] Sherri Selby MD [address] [place], [place] [phone] Durable Medical Equipment Social History Tobacco Use [...] 8:24 AM EST Please see below. Patients professional healthcare representative is requesting the following DME on the patients behalf.Please review and advise request and if approved please send message to [place] to generate RX. Thank you * Telephone Encounter - Erika Truong - 05/31/2024 8:23 AM EST ----- Message from Lani Figueroa sent at 05/30/2024 4:40 PM EST ----- Regarding: Script Requests Contact: Kiley, I am (Tele Tech Lani Villeda), Tele Tech for [facility] Care Management, requesting the following DME???s on behalf of patient. DME Item: Cane Supportive DX: R53.1, R42, R25.1 If you should have any inquiries regarding this request, feel free to contact the Tele Tech below. Tele Tech: Lani Villeda E-mail: [email or web address] Heart Surgeon: Covering Heart Surgeon Tala Moses Phone: E-mail: [email or web address] Thanks in advance for your assistance with this request. Sincerely, [facility] Care Management documented in this encounter Plan of Treatment Upcoming Encounters Date Type Department Care Team ([facility] st Contact Info) Description 08/17/2024 9:00 AM EDT Office Visit [facility] MEDICINE [address] [place] [address] [phone] Sherri Selby MD [address] [place] [phone] documented as of this encounter Visit Diagnoses Not on filedocumented in this encounter Additional Health Concerns Assessment Noted Time PHQ-9 Depression Total Score: 12 024 3:28 PM EST documented as of this encounter Care Teams Director Post Relationship Specialty Start Date End Date Sherri Selby MD [address] [place] [phone] PCP - General Internal Medicine 02/02/23 documented as of this encounter
--- OUTSIDE RECORDS SUMMARY | 2024-06-29 09:04 | XMS_ITS | Encounter Summary ---
Author Organization [employer] Address [address] [facility] 7 [place] [address] Care Team Providers Care Web User Experience Strategist Name Role Phone Sherri Selby MD Primary Care Pro vider Reason for Visit * Reason Onset Date Comments Results 05/05/2023 Encounter Details Date Type Department Care Team ([facility] st Contact Info) Description 05/05/2023 Telephone [facility] MEDICINE [address] [place], [place] [phone] Sherri Selby MD [address] [place] [address] Results Social History Tobacco Use Types Packs/Day [...] results of spine. Please contact pt at [phone] documented in this encounter Plan of Treatment Upcoming Encounters Date Type Department Care Team (Late st Contact Info) Description 08/17/2024 9:00 AM EDT Office Visit [facility] MEDICINE [address] [place] [phone] Sherri Selby MD [address] [place] [address] [phone] documented as of this encounter Visit Diagnoses Not on filedocumented in this encounter Additional Health Concerns Assessment Noted Time PHQ-9 Depression Total Score: 16 023 9:09 AM EDT documented as of this encounter Care Teams Web User Experience Strategist Relationship Specialty Start Date End Date Sherri Selby MD [address] [place] [phone] PCP - General Internal Medicine 02/02/23 documented as of this encounter
--- OUTSIDE RECORDS SUMMARY | 2024-06-29 09:04 | XMS_ITS | Encounter Summary ---
Author Organization [employer] Address [address] [facility] 7 [place] [address] Care Team Providers Care Wood Box Maker Name Role Phone Sherri Selby MD Primary Care Pro vider Reason for Visit * Reason Comments Med Refill Encounter Details Date Type Department Care Team ([facility] st Contact Info) Description 06/28/2024 Refill [facility] MED & PEDS [address] [place], [place] [phone] Sherri Selby MD 230 [place] [address] TIA (transient ischemic attack) Social History Tobacco Use Types Packs/Day Years [...] Description 08/17/2024 9:00 AM EDT Office Visit [facility] MEDICINE [address] [place] [phone] Sherri Selby MD [address] [place] [phone] documented as of this encounter Visit Diagnoses Diagnosis TIA (transient ischemic attack) Unspecified transient cerebral ischemia documented in this encounter Additional Health Concerns Assessment Noted Time PHQ-9 Depression Total Score: 12 024 3:28 PM EST documented as of this encounter Care Teams Wood Box Maker Relationship Specialty Start Date End Date Sherri Selby MD [address] [place] [phone] PCP - General Internal Medicine 02/02/23 documented as of this encounter
--- OUTSIDE RECORDS SUMMARY | 2024-06-29 09:05 | XMS_ITS | Encounter Summary ---
Author Organization [facility] Address [address] [facility] 7 [place] [address] Care Team Providers Care Inventory Control Planner Name Role Phone Funmi Easton MD Primary Care Provider Lorenza Stroud Primary Care Provider +1- [phone] Sherri Selby MD Primary Care Pro vider Encounter Details Date Type Department Care Team (Latest Contact Info) Description 12/24/2021 Abstract [facility] CONVERSIONS Dental, Provider, DDS Social History [...] Description 08/17/2024 9:00 AM EDT Office Visit [facility] MEDICINE [address] [place] [address] Sherri Selby MD [address] [place], [place] [phone] documented as of this encounter Visit Diagnoses Not on filedocumented in this encounter Care Teams Inventory Control Planner Relationship Specialty Start Date End Date Funmi Easton MD PCP - General Family Medicine 03/20/19 04/04/22 Lorenza Hodge FNP PCP - General Family Medicine 04/05/22 02/01/23 Sherri Selby MD [address] [place] [address] PCP - General Internal Medicine 02/02/23 documented as of this encounter
--- OUTSIDE RECORDS SUMMARY | 2024-06-29 09:05 | XMS_ITS | Encounter Summary ---
Author Organization [employer] Address [address] [facility] [address] 7[address] [place] [address] Care Team Providers Care Scarf And Anneal Operator Name Role Phone Sherri Selby MD Primary Care Pro vider Reason for Visit * Reason Onset Date Comments ER Follow-up 06/06/2024 Encounter Details Date Type Department Care Team ([facility] st Contact Info) Description 06/06/2024 Telephone [facility] MEDICINE [address] [place], [place] [phone] Christine Moses, RN [address] [place], [place] [phone] ER Follow-up Social History Tobacco Use Types [...] that he is scheduled to see the bliss press operator today to do cardiac CTA. Is feeling better today. No nausea today. Reports dizziness is ongoing. He went to the ED because of the LOC which his bliss press operator believe may be cardiac related. Pt on [...] 06/05/2024 3:24 PM EST ----- CTA at [facility] 05/31/24 showed approximate 20% stenosis in [...] Description 08/17/2024 9:00 AM EDT Office Visit [facility] MEDICINE [address] [place] [phone] Sherri Selby MD [address] [place] [phone] documented as of this encounter Visit Diagnoses Not on filedocumented in this encounter Additional Health Concerns Assessment Noted Time PHQ-9 Depression Total Score: 12 024 3:28 PM EST documented as of this encounter Care Teams Scarf And Anneal Operator Relationship Specialty Start Date End Date Sherri Selby MD [address] [place] [phone] PCP - General Internal Medicine 02/02/23 documented as of this encounter
--- OUTSIDE RECORDS SUMMARY | 2024-06-29 09:05 | XMS_ITS | Encounter Summary ---
Author Organization [employer] Address [address] [facility] 7t [place] [address] Care Team Providers Care Political Analyst Name Role Phone Lorenza HodgeP Primary Care Provider [phone]- [phone] Sherri Selby MD Primary Care Pro vider Reason for Visit * Reason Onset Date Comments triage 06/11/2022 Encounter Details Date Type Department Care Team (Late st Contact Info) Description 06/11/2022 Telephone [facility] MEDICINE [address] [place] [phone] Lorenza Hodge FNP [address] [place] [address] Dept [place] [address] triage Social History Tobacco Use Types Packs/Day [...] on pt. Voice mail to call back [facility] nurses at [phone] or if emergent care needed to go [...] AM EDT Office Visit [facility] [address] [place] [phone] Sherri Selby MD [address] [place] [address] documented as of this encounter Visit Diagnoses Not on filedocumented in this encounter Care Teams Political Analyst Relationship Specialty Start Date End Date Lorenza Hodge FNP PCP - General Family Medicine 04/05/22 02/01/23 Sherri Selby MD [address] [place] [address] [phone] PCP - General Internal Medicine 02/02/23 documented as of this encounter
--- OUTSIDE RECORDS SUMMARY | 2024-06-29 09:05 | XMS_ITS | Encounter Summary ---
Author Organization [facility] Address [address] [place] [address] 7 [place] [address] Care Team Providers Care Cement Crusher Operator Name Role Phone Funmi Easton MD Primary Care Provider Lorenza Stroud Primary Care Provider +1- [phone] Sherri Selby MD Primary Care Pro vider Encounter Details Date Type Department Care Team (Latest Contact Info) Description 05/02/2019 Abstract [facility] CONVERSIONS Dental, Provider, DDS Social History Tobacco [...] Description 08/17/2024 9:00 AM EDT Office Visit [facility] MEDICINE [address] [place] [address] Sherri Selby MD [address] [place] [address] documented as of this encounter Visit Diagnoses Not on filedocumented in this encounter Care Teams Cement Crusher Operator Relationship Specialty Start Date End Date Funmi Easton MD PCP - General Family Medicine 03/20/19 04/04/22 Lorenza Hodge FNP PCP - General Family Medicine 04/05/22 02/01/23 Sherri Selby MD [address] [place] [address] PCP - General Internal Medicine 02/02/23 documented as of this encounter
--- OUTSIDE RECORDS SUMMARY | 2024-06-29 09:05 | XMS_ITS | Encounter Summary ---
Author Organization [employer] [facility] Address [address] [place] [address] 7 [place] [address] Care Team Providers Care Emt Driver Name Role Phone Lorenza Hodge [facility] Primary Care Provider +1- [phone] Sherri Selby MD Primary Care Pro vider Encounter Details Date Type Department Care Team (Late st Contact Info) Description 11/25/2022 Orders Only [facility] MEDICINE [address] [place] [phone] Lorenza Hodge [address] Dept [place] [address] Social History Tobacco Use Types Packs/Day Years [...] Description 08/17/2024 9:00 AM EDT Office Visit [facility] MEDICINE [address] [place] [address] [phone] Sherri Selby MD [address] [place] [address] [phone] documented as of this encounter Procedures Procedure Name Priority Date/Time Associated Diagnosis Comments US RENAL BI Routine 12/06/2022 1:54 PM EDT documented in this encounter Results * US RENAL BI (12/06/2022 1:54 PM EDT) Anatomical Region Laterality Modality Abdomen Ultrasound 12/06/2022 1:54 PM EDT Narrative 12/09/2022 6:44 PM EDT ? [facility] ?[address] ?[place] [address] ? Ultrasound Report ? Signed ? Patient: Inderjit Stoner ?MR ?? #: [id number] ? : 1960 ?Acct:[id number] ? Age/Sex: 62 / M ?ADM Date: 12/06/22 ? Loc: HO.US ? Attending Dr: Lorenza OCONNELL ? Ordering Physician: Lorenza Hodge ?? Date of Service: 12/06/22 ?? Procedure(s): US renal BI ?? Accession Number(s): [id number] ? cc: Lorenza Hodge ? EXAMINATION: ?? US RETROPERITONEAL LIMITED (RENAL [...] 1841 ? DD/ 1354 ? TD/TT: ? Vacuum Drier Tender: ? Procedure Note Donartemioter, Image - 12/09/2022 [place] [address] Ultrasound Report Signed Patient: Inderjit Stoner [facility] #: [id number] : 1Acct:[id number] Age/Sex: 62 / MADM Date: 12/06/22 Loc: HO.US Attending Dr: Lorenza OCONNELL Ordering Physician: Lorenza Hodge Date of Service: 12/06/22 Procedure(s): US renal BI Accession Number(s): [id number] cc: Lorenza Hodge EXAMINATION: US RETROPERITONEAL LIMITED [...] in OV> 12/09/22 1841 DD/ 1354 TD/TT: Vacuum Drier Tender: us Lorenza Hodge TRENCH SHOVEL OPERATOR IMG US PROCEDURES Edited R esult - Final documented in this encounter Visit Diagnoses Not on filedocumented in this encounter Additional Health Concerns Assessment Noted Time PHQ-9 Depression Total Score: 16 023 9:09 AM EDT documented as of this encounter Care Teams Emt [place] Relationship Specialty Start Date End Date Lorenza Hodge FNP PCP - General Family Medicine 04/05/22 02/01/23 Sherri Selby MD [address] [place] [address] PCP - General Internal Medicine 02/02/23 documented as of this encounter
--- OUTSIDE RECORDS SUMMARY | 2024-06-29 09:05 | XMS_ITS | Encounter Summary ---
Author Organization [employer] Address [address] [place] [address] Care Team Providers Care Labor Expediter Name Role Phone Sherri Selby MD Primary Care Pro vider Reason for Visit * Reason Comments Routine Cleaning Dental Exam Encounter Details Date Type Department Care Team ([facility] st Contact Info) Description 06/26/2024 1:00 PM EST Office Visit [facility] ADULT DENTAL [address], [place] [phone] Divina Vickers [address] [place] [address] Encounter for dental examination (Primary Dx); Dental calculus; Dental plaque; Dental caries Social History Tobacco Use Types Packs/Day Years [...] AM EDT documented as of this encounter Last Filed Vital Signs Vital Sign Reading Time Taken Comments Blood Pressure 118/80 06/26/2024 1:00 PM EST Pulse 60 06/26/2024 1:00 PM EST Temperature - - Respiratory Rate - - Oxygen Saturation - - Inhaled Oxygen Concentration - - Weight - - Height - - Body Mass Index - - documented in this encounter Progress Notes * Divina Vickers - 06/26/2024 1:00 PM EST Patient ID: Inderjit Banks is a 63 y.o. male. Time Out: Timeout Date: 06/26/24 (prophy and exam), Timeout Time: 1301 Location: [facility] Tooth: Maxilla and Mandible Procedure: Exam, X-rays, and Prophylaxis Verified the above with patient, assistant manager/embalmer, and provider. Confirmed via patient's chart, intraorally and by radiographs. Senior Test Engineer: not applicable Medical Hx: Vitals: Blood pressure 118/80, pulse 60. Medications, Med Hx reviewed with patient and updated in chart. Treatment Provided Dental procedures in this visit D0120 - PERIODIC ORAL EVALUATION - ESTABLISHED PATIENT D0274 - BITEWINGS - 4 RADIOGRAPHIC IMAGES (Completed) Service provider: Divina Vickers Billing provider: Judy Wagoner DDS D0220 - INTRAORAL - PERIAPICAL FIRST RADIOGRAPHIC IMAGE (Completed) Service provider: Divina Vickers Billing provider: Judy Wagoner DDS D0230 - INTRAORAL - PERIAPICAL EACH ADDITIONAL RADIOGRAPHIC IMAGE (Completed) Service provider: Divina Vickers Billing provider: Judy Wagoner DDS D0180 - COMPREHENSIVE PERIODONTAL EVALUATION - NEW OR ESTABLISHED PATIENT (Completed) Service provider: Judy Wagoner DDS Billing provider: Judy Wagoner DDS D1110 - PROPHYLAXIS - ADULT (Completed) Service provider: Divina Vickers Billing provider: Judy Wagoner DDS D1330 - ORAL HYGIENE INSTRUCTIONS (Completed) Service provider: Divina Vickers Billing provider: Judy Wagoner DDS D1206 - TOPICAL APPLICATION OF FLUORIDE VARNISH Full (Completed) Service provider: Divina Vickers Billing provider: Judy Wagoner DDS D0230 - INTRAORAL - PERIAPICAL EACH ADDITIONAL RADIOGRAPHIC IMAGE (Completed) Service provider: Divina Vickers Billing provider: Judy Wagoner DDS D0230 - INTRAORAL - PERIAPICAL EACH ADDITIONAL RADIOGRAPHIC IMAGE (Completed) Service provider: Divina Vickers Billing provider: Judy Wagoner DDS D9450 - ADJUNCTIVE GENERAL SERVICES - PROFESSIONAL VISITS - CASE PRESENTATION, SUBSEQUENT TO DETAILED AND EXTENSIVE TREATMENT PLANNING (Completed) Service provider: Divina Vickers Billing provider: Judy Wagoner DDS Instruments Used: Ultrasonic Scalers, Hand Scalers, and Prophraymundo angle Fluoride: 5% NaF varnish applied and POI given Oral Cancer Screening: No lesions Head/Neck Exam: No Lesions Calculus: Light and Localized Plaque: Light and Localized Stain: None Bleeding: Light and Localized Gingiva: Healthy, Perio Charting Completed, and Recession- localized OH: Good to fair Perio Chart: Completed Oral hygiene instructions provided to patient including brushing technique and flossing. Recommendations: [place] two times daily, modified craven technique, Floss daily, Soft bristle toothbrush Recall Frequency: 6 mo NV: ext #[address] Puneet Wynn completed by [facility] student: Moraima Tavarez Hygienist: Divina Vickers RDH Cosigned by Judy Wagoner DDS at 06/26/2024 2:36 PM EST Associated attestation - Judy Wagoner DDS - 06/26/2024 2:36 PM EST I have reviewed the documentation and dental procedures made by the rendering provider, Divina Chavez RD , and approve their chart entries for this visit. Judy Wagoner DDS * Judy Wagoner DDS - 06/26/2024 1:00 PM EST Dental procedures in this visit D0120 - PERIODIC ORAL EVALUATION - ESTABLISHED PATIENT (Completed) Service provider: Judy Wagoner DDS Billing provider: Judy Wagoner DDS D0274 - BITEWINGS - 4 RADIOGRAPHIC IMAGES (Completed) Service provider: Divina Vickers Billing provider: Judy Wagoner DDS D0220 - INTRAORAL - PERIAPICAL FIRST RADIOGRAPHIC IMAGE (Completed) Service provider: Divina Vickers Billing provider: Judy Wagoner DDS D0230 - INTRAORAL - PERIAPICAL EACH ADDITIONAL RADIOGRAPHIC IMAGE (Completed) Service provider: Divina Vickers Billing provider: Judy Wagoner DDS D1110 - PROPHYLAXIS - ADULT (Completed) Service provider: Divina Vickers Billing provider: Jduy Wagoner DDS D1330 - ORAL HYGIENE INSTRUCTIONS (Completed) Service provider: Divina Vickers Billing provider: Judy Wagoner DDS D1206 - TOPICAL APPLICATION OF FLUORIDE VARNISH Full (Completed) Service provider: Divina Vickers Billing provider: Judy Wagoner DDS D0230 - INTRAORAL - PERIAPICAL EACH ADDITIONAL RADIOGRAPHIC IMAGE (Completed) Service provider: Divina Vickers Billing provider: Judy Wagoner DDS D0230 - INTRAORAL - PERIAPICAL EACH ADDITIONAL RADIOGRAPHIC IMAGE (Completed) Service provider: Divina Vickers Billing provider: Judy Wagoner DDS D9450 - ADJUNCTIVE GENERAL SERVICES - PROFESSIONAL VISITS - CASE PRESENTATION, SUBSEQUENT TO DETAILED AND EXTENSIVE TREATMENT PLANNING (Completed) Service provider: Divina Vickers Billing provider: Judy Wagoner DDS D0180 - COMPREHENSIVE PERIODONTAL EVALUATION - NEW OR ESTABLISHED PATIENT (Completed) Service provider: Judy Wagoner DDS Billing provider: Judy Wagoner DDS Patient ID: Inderjit Banks is a 63 y.o. male. Time Out: Timeout Date: 06/26/24 (prophy and exam), Timeout Time: 1301 Location: [facility] Tooth: Maxilla and Mandible Procedure: Exam, X-rays, and Prophylaxis Verified the above with patient, assistant manager/embalmer, and provider. Confirmed via patient's chart, intraorally and by radiographs. Senior Test Engineer: not applicable Chief Complaint Patient presents with Routine Cleaning Dental Exam Medical Hx: Vitals: Blood pressure 118/80, pulse 60. Past Medical History: Diagnosis Date Allergic rhinitis Anxiety Back pain Bleeding gums Depression GERD (gastroesophageal reflux disease) Hyperlipidemia Seizures ([facility] Medications: Outpatient Encounter Medications as of 06/26/2024 Medication Sig Dispense Refill aspirin (Aspirin Adult Low Strength) 81 MG EC tablet TAKE 1 TABLET BY MOUTH EVERY MORNING 90 tablet1 atorvastatin (Lipitor) 80 MG tablet Take 1 tablet (80 mg) by mouth Once per day. TAKE 1 TABLET BY MOUTH AT BEDTIME 90 tablet 3 Diclofenac Sodium (Voltaren) 1 % gel Apply 2 g topically if needed in the morning and at bedtime (muscle pain). 100 g 3 docusate sodium (Colace) 100 MG capsule Take 100 mg by mouth at bedtime. famotidine (Pepcid) 40 MG tablet Take 40 mg by mouth at bedtime. finasteride (Proscar) 5 MG tablet FLUoxetine (PROzac) 40 MG capsule 40 mg in the morning. 2 cap a day levETIRAcetam (Keppra) 500 MG tablet Take 1 tablet (500 mg) by mouth in the morning. 1 tablet 0 lidocaine (Lidoderm) 5 % patch Apply 1 patch topically Once per day. Remove & discard patch within 12 hours or as directed by . 30 patch 1 Linzess 290 MCG capsule Take 290 mcg by mouth in the morning. methocarbamol (Robaxin) 500 MG tablet PLEASE SEE ATTACHED FOR DETAILED DIRECTIONS Multiple Vitamins-Minerals (CertaVite/Antioxidants) tablet Take 1 tablet by mouth in the morning. 90 tablet 3 nitroglycerin (Nitrostat) 0.[address] 1 tablet (0.4 mg) under the tongue every 5 (five) minutes if needed for chest pain. 90 tablet 1 omega-3 (fish oil) 1000 MG capsule Take 1 capsule (1,000 mg) by mouth Once per day. 90 capsule 1 pantoprazole (ProtoNix) 40 MG EC tablet TAKE 1 TABLET BY MOUTH TWICE DAILY IN THE MORNING AND AT BEDTIME polyethylene glycol, PEG, 3350 (MiraLax) 17 GM/SCOOP powder Mix 1 scoop (17g) of miralax in 8 ounces of beverage every morning and drink. 527 g 2 primidone (Mysoline) 50 MG tablet Take 50 mg by mouth at bedtime. propranolol (Inderal) 10 MG tablet senna (Senokot) 8.6 MG tablet SM Fiber Laxative 500 MG tablet TAKE 1 TABLET BY MOUTH EVERY MORNING WITH GLASS OF WATER terazosin (Hytrin) 5 MG capsule Take 5 mg by mouth 1 (one) time. topiramate (Topamax) 25 MG tablet Take 25 mg by mouth at bedtime. No facility-administered encounter medications on file as of 06/26/2024. Objective HPI Soft Tissue Exam No findings documented this visit Head and Neck Exam: Lymph Nodes, Lips, Palate, Buccal Mucosa, Floor of Mouth, Tongue, Tonsils, Alveolar Ridges, Oropharynx, Salivary Ducts, and Vestibules - no significant findings observed Details: bilateral small mandibular rina OCS: negative Dental Exam Radiographic Interpretation: Associated radiographs for today's visit were reviewed and finding(s) were discussed with the patient. Findings include: caries, worn incisal facet, missing teeth, calculus, dental plaque. Hard Tissue Exam: Decay noted - see charting and treatment plan Perio Dx: fair OH, moderate plaque and calculus. Reference tooth chart for additional findings. Oral Cancer Risk: Low Risk Oral Hygiene Instructions: [place] two times daily, modified craven technique, Floss daily, Soft bristle toothbrush, [place] Tongue Caries Risk Assessment: High- two or more risk factors Assessment/Plan Ext Add tooth RPD Patient tolerated procedure well, all questions answered and expressed understanding. Dismissed in good condition. NV: Ext Add tooth RPD Stone Fabricator: Divina Vickers Dentist: Judy Wagoner DDS documented in this encounter Plan of Treatment Upcoming Encounters Date Type Department Care Team (Late st Contact Info) Description 08/17/2024 9:00 AM EDT Office Visit [facility] MEDICINE [address] [place] [address] [phone] Sherri Selby MD [address] [place], [place] [phone] Scheduled Orders Name Type Priority Associated Diagnoses Orde r Schedule 21 21 EXTRACTION, ERUPTED TOOTH OR EXPOSED ROOT (ELEVATION AND/OR FORCEPS REMOVAL) Dental Routine 1 Occurrences s tarting 06/26/2024 documented as of this encounter Procedures Procedure Name Priority Date/Time Associated Diagnosis Comments PROPHYLAXIS - ADULT Routine 06/26/2024 1 :00 PM EST PERIODIC ORAL EVALUATION - ESTABLISHED PATIENT Routine 06/26/2024 1:00 PM EST Encounter for dental examination Dental calculus Dental plaque Dental caries ORAL HYGIENE INSTRUCTIONS Routine 2024 1:00 PM EST INTRAORAL - PERIAPICAL FIRST RADIOGRAPHIC IMAGE Routine 06/26/2024 1:00 PM EST INTRAORAL - PERIAPICAL EACH ADDITIONAL RADIOGRAPHIC IMAGE Routine 06/26/2024 1:00 PM EST INTRAORAL - PERIAPICAL EACH ADDITIONAL RADIOGRAPHIC IMAGE Routine 06/26/2024 1:00 PM EST INTRAORAL - PERIAPICAL EACH ADDITIONAL RADIOGRAPHIC IMAGE Routine 06/26/2024 1:00 PM EST COMPREHENSIVE PERIODONTAL EVALUATION - NEW OR ESTABLISHED PATIENT Routine 06/26/2024 1:00 PM EST Encounter for dental examination Dental calculus Dental plaque Dental caries CASE PRESENTATION, DETAILED AND EXTENSIVE TREATMENT PLANNING Routine 06/26/2024 1:00 PM EST BITEWINGS - 4 RADIOGRAPHIC IMAGES Routine 06/26/2024 1:00 PM EST documented in this encounter Visit Diagnoses Diagnosis Encounter for dental examination- Primary Dental calculus Accretions on teeth Dental plaque Accretions on teeth Dental caries Unspecified dental caries documented in this encounter Additional Health Concerns Assessment Noted Time PHQ-9 Depression Total Score: 12 024 3:28 PM EST documented as of this encounter Care Teams Labor Expediter Relationship Specialty Start Date End Date Sherri Selby MD [address] [place] [phone] PCP - General Internal Medicine 02/02/23 documented as of this encounter
--- OUTSIDE RECORDS SUMMARY | 2024-06-29 09:05 | XMS_ITS | Encounter Summary ---
Author Organization [employer] [facility] Address [address] [facility] 7 [place] [address] Care Team Providers Care Clinic Clerk Name Role Phone Funmi Easton MD Primary Care Provider Lorenza Stroud Primary Care Provider [phone] Sherri Selby MD Primary Care Pro vider Encounter Details Date Type Department Care Team (Latest Contact Info) Description 03/23/2021 Abstract [facility] CONVERSIONS Dental, Provider, DDS Social History [...] EDT Office Visit [facility] MEDICINE [address] [place] [address] Sherri Selby MD [address] [place], [place] [phone] documented as of this encounter Visit Diagnoses Not on filedocumented in this encounter Care Teams Clinic Clerk Relationship Specialty Start Date End Date Funmi Easton MD PCP - General Family Medicine 03/20/19 04/04/22 Lorenza Hodge FNP PCP - General Family Medicine 04/05/22 02/01/23 Sherri Selby MD [address] [place] [address] PCP - General Internal Medicine 02/02/23 documented as of this encounter
== END 2024-06-29 09:17 | disposition home or self-care (01) ==
PROVIDERS: PCP Student in an Organized Health Care Education/Training Program; Visit Provider Registered Nurse Emergency
DX: R35.1 Nocturia (principal); M96.1 Postlaminectomy syndrome, not elsewhere classified; M47.816 Spondylosis without myelopathy or radiculopathy, lumbar region; M54.16 Radiculopathy, lumbar region
CPT/HCPCS: 99213; G2211

== ENCOUNTER → 2024-06-29 08:49 | Outpatient (BNVA) | payer OTHER, SELFPAY | PROVIDERS: PCP Student in an Organized Health Care Education/Training Program; Visit Provider Registered Nurse Emergency | DX: M96.1 Postlaminectomy syndrome, not elsewhere classified (principal); R35.1 Nocturia; M47.26 Other spondylosis with radiculopathy, lumbar region | CPT/HCPCS: 99212 ==

== ENCOUNTER 2024-08-15 13:09 | Outpatient (AMB) | payer OTHER, SELFPAY ==
--- NOTE | 2024-08-15 13:10 | MHC.OFFVIS ---
Vital Signs 08/15/24 13:22 Height 5 ft 9 in Weight 190 lb 14.725 oz BMI 28.2 BP 106/62 Blood Pressure Location Rt brachial Position Sitting Pulse 68 Pulse Source Pulse Oximeter Pulse Oximetry (%) 97 Oxygen Delivery Method Room Air Intake Visit Reasons: [facility] Intake Note: ESTABLISHED PATIENT for [facility] mgmt. Pt no showed last visit for 2 mos FUV. Chief Complaint; C/O LLQ pain persistence, slightly improved BMs but no great signs of improvement. No additional concerns at this time. Manager Home Improvement Required: Yes Manager Home Improvement Services: Manager Home Improvement Offered & Declined Allergies No Known Allergies Allergy (Verified 08/15/24 13:11) HPI HPI [facility]: Details: LAST VISIT Left lower quadrant abdominal pain Elevated fecal calprotectin Chronic idiopathic constipation GERD (gastroesophageal reflux disease) Screen for colon cancer Plan Continue current treatment with PPI and H2 lea. Avoid dietary triggers and late night snacking. Staying upright for minimum 3 hours after meals discussed with patient. Patient can start taking Linzess 145 mcg. TAYLOR Sinha verified with [facility] pharmacy that the medication will be ready for patient to be picked up today. He will return in 2 months to discuss colonoscopy in making sure that he is moving his bowels better now. Avoid dietary triggers and late night snacking. List of food to avoid and list of food recommended given to patient. We did talk about low FODMAP diet in particularly. Patient does have a history of CAD and has seen cardiology. Next appointment in May. We will ask for risk stratification before going for procedure. Currently patient does not have any cardiac or respiratory symptoms. He is agreeable to current plan of care and verbalizes understanding of instructions. He was given the opportunity to ask questions and all questions answered. ? Thank you for allowing me to participate in his care Medications New linaclotide (Linzess) 145 mcg PO DAILY 30 caps 4RF K59.04 Discontinued linaclotide (Linzess) Discontinued Reason: Insurance Denied 290 mcg PO QAM 30 caps 4RF K59.00 TODAY'S VISIT Patient is here today for follow-up. Patient reports that he has been feeling well. Continues to take Linzess, however he feels like he still gets occasional left lower quadrant pain and does not feel like it helps him to empty his bowels completely. Patient reports that acid reflux is suppressed currently. Patient is taking famotidine at bedtime. Does not take any PPI according to the chart. Encourage patient to bring his medications next visit. Patient is due to go for colonoscopy, however he is going for testing. He tells me that he was supposed to have cardiac catheterization at [facility] and when he went there and they did not have him on the list. According to the notes patient was supposed to go to coronary CTA. Will send a message to an ENVELOPE MAKER in Cardiology and also for risk stratification. Patient denies melena, hematochezia, unintentional weight loss or ribbon like stools. Denies any dyspepsia, dysphagia or odynophagia. [facility] Medical History CAD (coronary artery disease) Surgical History Hx of colonoscopy History of esophagogastroduodenoscopy (EGD) Family History Father Cancer Throat cancer Mother Cancer Sister FH: kidney cancer Breast cancer Social History Alcohol intake: never Patient Tobacco Use Status: Never used Tobacco Advance Directives Date on File: 02/25/21 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 Gender identity: Male Physical Exam Vital Signs: Last Vital Signs Pulse 68 08/15/24 13:22 BP 106/62 08/15/24 13:22 Pulse Ox 97 08/15/24 13:22 Oxygen Delivery Method Room Air 08/15/24 13:22 BMI result Body Mass Index 28.2 Assessment & Plan Assessment & Plan (1) Left lower quadrant abdominal pain: Code(s): R10.32 - Left lower quadrant pain Category: Medical (2) Elevated fecal calprotectin: Code(s): R19.5 - Other fecal abnormalities Plan: Borderline (3) Chronic idiopathic constipation: Code(s): K59.04 - Chronic idiopathic constipation (4) GERD (gastroesophageal reflux disease): Code(s): K21.9 - Gastro-esophageal reflux disease without esophagitis Qualifiers: Esophagitis presence: esophagitis presence not specified Qualified Code(s): K21.9 - Gastro-esophageal reflux disease without esophagitis (5) Screen for colon cancer: Code(s): Z12.11 - Encounter for screening for malignant neoplasm of colon Plan Awaiting cardiac clearance. Patient will start taking stool softener daily. He can take dicyclomine as needed up to twice a day. Increase fluid intake and activity to promote better bowel motility. Continue taking famotidine. Avoid dietary triggers late night snacking. Staying upright for minimum 3 hours after meals discussed with patient. Abdominal Exam benign, most likely gas pain and constipation. Diagnosed with diverticulosis in the past. Patient will follow-up in 3-4 months we will discuss going for colonoscopy. Patient is agreeable to this plan and verbalizes understanding of instructions. He was given the opportunity to ask questions and all questions answered. Thank you for allowing me to participate in his care Please when calling patient before his appointment asked to bring all of his medications in Medications: New docusate sodium 100 mg PO BEDTIME 90 caps 3RF K59.00 - Constipation, unspecified dicyclomine 10 mg PO BID PRN 60 caps 2RF abdominal discomfort K58.9 - Irritable bowel syndrome, unspecified Coding Level of Care Code Est Pt Level 4 (80094) Complex EM visit Add On G2211 Diagnoses Left lower quadrant abdominal pain R10.32 Elevated fecal calprotectin R19.5 Chronic idiopathic constipation K59.04 Gastroesophageal reflux disease, unspecified whether esophagitis present K21.9 Esophagitis presence: esophagitis presence not specified Screen for colon cancer Z12.11 Time Spent (min) 35 Comment 25 minutes spent with patient and additional 10 minutes spent reviewing his records
[2024-08-15 13:22] VITALS: BP 106/62; PULSE 68; O2SAT 97; BMI 28.2
--- OUTSIDE RECORDS SUMMARY | 2024-08-15 15:45 | XMS_ITS | Encounter Summary ---
Author Organization [employer] Address [address] [facility] 7t [place] [address] Care Team Providers Care Steel Construction Worker Name Role Phone Sherri Selby MD Primary Care Pro vider Encounter Details Date Type Department Care Team (Late st Contact Info) Description 08/14/2024 Orders Only [facility] MEDICINE [address] [place] [address] Sherri Selby MD [address] [place] [address] Social History Tobacco Use Types Packs/Day Years [...] Description 08/17/2024 9:00 AM EDT Office Visit [facility] MEDICINE [address] [place] [phone] Sherri Selby MD [address] [place] [phone] documented as of this encounter Visit Diagnoses Not on filedocumented in this encounter Additional Health Concerns Assessment Noted Time PHQ-9 Depression Total Score: 12 024 3:28 PM EST documented as of this encounter Care Teams Steel Construction Worker Relationship Specialty Start Date End Date Sherri Selby MD [address] [place] [phone] PCP - General Internal Medicine 02/02/23 documented as of this encounter
--- OUTSIDE RECORDS SUMMARY | 2024-08-15 15:45 | XMS_ITS | Clinical Summary ---
Author Organization [facility] Address [address] [place] [address] Phone Care Team Providers Care Torch Heater Name Role Phone Unavailable Primary Care Provider [...] DTaP,Tdap,and Td Vaccines (1 - Tdap) 1979 Pneumococcal Vaccine: 50+ Ye ars (1 of 1 - PCV) 2010 Zoster Vaccines (1 of 2) 2010 Cholesterol Screening (Lipid Panel) 04/18/2022 Colorectal Cancer Screening: Colonoscopy 04/18/2022 Depression Screening 04/18/2022 HIV Screening 04/18/2022 Hepatitis C Screening 04/18/2022 Social Influencers of Health Screening 04/18/2022 COVID-19 Vaccine (1 - 2023-2 5 season) 2024 Influenza Vaccine (#1) 2024 RSV Immunization Adult Patie nts (1 - 1-dose 75+ series) 2035 HIB [...]
--- OUTSIDE RECORDS SUMMARY | 2024-08-15 15:45 | XMS_ITS | Encounter Summary ---
Author Organization [employer] Address [address] [address] [address] [place] [address] Care Team Providers Care Haulage Engine Operator Name Role Phone Sherri Selby MD Primary Care Pro vider Encounter Details Date Type Department Care Team (Late st Contact Info) Description 08/14/2024 Orders Only [facility] MED & PEDS [address] [place], [place] [phone] Aditi Tabor MD [address] [place], [place] [phone] Social History Tobacco Use Types Packs/Day Years [...] 9:00 AM EDT Office Visit [facility] MEDICINE [address] [place] [phone] Sherri Selby MD [address] [place] [phone] documented as of this encounter Visit Diagnoses Not on filedocumented in this encounter Additional Health Concerns Assessment Noted Time PHQ-9 Depression Total Score: 12 024 3:28 PM EST documented as of this encounter Care Teams Haulage Engine Operator Relationship Specialty Start Date End Date Sherri Selby MD [address] [place] [phone] PCP - General Internal Medicine 02/02/23 documented as of this encounter
--- OUTSIDE RECORDS SUMMARY | 2024-08-15 15:45 | XMS_ITS | Encounter Summary ---
Author Organization [employer] Address [address] [facility] 7 [place] [address] Care Team Providers Care Assurance Assistant Name Role Phone Sherri Selby MD Primary Care Pro vider Reason for Visit * Reason Onset Date Comments Results 05/05/2023 Encounter Details Date Type Department Care Team ([facility] st Contact Info) Description 05/05/2023 Telephone [facility] MEDICINE [address] [place], [place] [phone] Sherri Selby MD [address] [place] [address] Results Social History Tobacco Use Types Packs/Day [...] results of spine. Please contact pt at [phone] documented in this encounter Plan of Treatment Upcoming Encounters Date Type Department Care Team (Late st Contact Info) Description 08/17/2024 9:00 AM EDT Office Visit [facility] MEDICINE [address] [place] [phone] Sherri Selby MD [address] [place] [address] [phone] documented as of this encounter Visit Diagnoses Not on filedocumented in this encounter Additional Health Concerns Assessment Noted Time PHQ-9 Depression Total Score: 16 023 9:09 AM EDT documented as of this encounter Care Teams Assurance Assistant Relationship Specialty Start Date End Date Sherri Selby MD [address] [place] [phone] PCP - General Internal Medicine 02/02/23 documented as of this encounter
--- OUTSIDE RECORDS SUMMARY | 2024-08-15 15:45 | XMS_ITS | Clinical Summary ---
Author Organization [employer] Address [address] [place] [address] Care Team Providers Care Electronics Lead Name Role Phone Sherri Selby MD Primary [...] 0.4 MG SL tabletIndicati ons:Atheroscle rosis of kotlik coronary artery of kot[place] heart with stable angina pectoris (CMS/HCC) Place [...] ATTACHED FOR DETAILED DIRECTIONS 11/16/19 24 Active Multiple Vitamins-Animal Park Code Enforcement Officer als (CertaVite/Ant ioxidants) tablet Take 1 tablet [...] MORNING 90 tablet 1 06/28/19 25 Active Vascepa 1 g capsule TAKE 1 CAPSULE BY MOUTH EVERY MORNING 90 capsule 1 08/15/19 25 Active lidocaine-pril ocaine (Emla) 2.5-2.5 % cream Apply topically if needed each day for mild pain. 30 g 2 08/15/19 25 Active lidocaine (Lidoderm) 5 % patchIndicatio ns:Flank pain Apply 1 patch topically Once per day. Remove & discard patch within 12 hours or as directed by MD. 30 patch 1 12/01/19 24 025 Discontinued(Ot her) omega-3 (fish oil) 1000 MG capsule Take 1 capsule (1,000 mg) by mouth Once per day. 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 Injury to L bahai about 3 years ago. 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 06/07/2022 Overview (02/02/2023): Dyscognitive seizure disorder with episodes of blurry vision and passing out Care Managed by Neurology associates [facility] Last appt 04/28/22 Treating Keppra 250mg [...] records Gave pt card with [facility] Fax number and have all specialists [...] Patient to reach out to [facility] team as needed Rule Out Diagnoses [...] Encounters Date Type Department Care Team Description 08/14/2024 Orders Only [facility] MEDICINE [address] [place] [address] Sherri Selby MD 08/14/2024 Orders Only [facility] MED & PEDS [address] [place], [place] [phone] Aditi Tabor MD 08/13/2024 Telephone [facility] MEDICINE [address], [place] [phone] Sherri Selby MD Prior Auth Prescription (Lidocaine patches) 08/13/2024 Telephone [facility] MEDICINE [address] [place] [phone] Sherri Sleby MD 08/13/2024 Refill [facility] [address] [place] [address] Mayelin Robin MD 08/06/[address] [address] Sherri Selby MD chart prep 06/28/2024 Refill [facility] [address] [place], [place] [phone] Sherri Selby MD TIA (transient ischemic attack) 06/26/2024 1:00 PM EST Office Visit [facility] ADULT DENTAL [address] [place] [phone] Divina Vickers Encounter for dental examination (Primary Dx); Dental calculus; Dental plaque; Dental caries 06/08/2024 Telephone [facility] [address] [place] [address] Chrissy Olivera [place] August Recall 06/06/[address] [address] Christine Moses, HAND PATCHER Follow-up 05/31/2024 Orders Only GENERIC EXTERNAL DATA DEPARTMENT Provider, Generic External Data 05/31/[address] [address] Sherri Selby MD Durable Medical Equipment from Last 3 Months Immunizations Name Administration [...] Visit [facility] MEDICINE [address], [place] [phone] Sherri Selby MD [address] [place], [place] [phone] Health Maintenance Due Date Last Done Comments CT Colonography 1960 Colonoscopy 1960 FIT DNA/Cologuard 1960 Sigmoidoscopy 1960 Pneumococcal Vaccine: 50+ Years (1 of 2 - PCV) 1979 Hepatitis B Vaccines (3 of 3 - 19+ 3-dose series) 06/08/2024 01/10/2024, 12/07/2023 Depression Monitoring (PHQ-9) 09/25/2024 03/28/2024, 03/28/2024 SDOH Screening 10/10/2024 10/11/2023 Diabetes: Hemoglobin A1C 11/15/20242 024, 08/10/2022, 10/28/2021 Dental Oral Exam 12/25/2024 [...] AUTO DIFFERENTIAL Routine 05/31/2024 1:41 PM EST LIPID PANEL, STANDARD Routine 03/19/2024 11:05 [...] EST Narrative 05/31/2024 3:51 PM EST ? [facility] ?[address] ?[place] [address] ? CT Scan Report ? Signed ? Patient: Inderjit Stoner ?MR ?? #: [id number] ? : 1960 ?Acct:[id number] ? Age/Sex: 63 / M ?ADM Date: 01/16/25 ? Loc: HO.ED ? Attending Dr: ? Ordering Physician: Tala Delgadillo ?? Date of Service: 05/31/24 ?? Procedure(s): CT cervical spine wo IV con ?? Accession Number(s): [id number] ? cc: Tala Delgadillo; Sherri Selby MD ? Report Number: ?? [id number]: Total DLP = ??591.42 mGy-cm ?? EXAMINATION: [...] DD/ 1439 ? TD/TT: 05/31/24 1517 ? Print Project Manager: ? Procedure Note Diamante Cox - 05/31/2024 [facility] [address] [place] [address] CT Scan Report Signed Patient: Inderjit Stoner [facility] #: [id number] : 1960cct:[id number] Age/Sex: 63 / MADM Date: 05/31/24 Loc: HO.ED Attending Dr: Ordering Physician: Tala Delgadillo Date of Service: 05/31/24 Procedure(s): CT cervical spine wo IV con Accession Number(s): [id number] cc: Tala Delgadillo; Sherri Selby MD Report Number: [id number]: Total DLP = 591.42 mGy-cm EXAMINATION: CT [...] by: Blu Farrell MD 05/31/2024 03:48 PM [facility] Dictated By: Blu Mijares MD Signed By: <Electronically signed by Blu Moses MDin OV> 05/31/24 1548 DD/ 1439 TD/TT: 05/31/24 1517 Print Project Manager: us [facility] External Provider IMG CT PROCEDURES Final Result * CTA Head Neck w/ and w/o Contrast (05/31/2024 2:39 PM EST) Anatomical Region Laterality Modality Head, Neck Computed Tomogra phy 05/31/2024 2:39 PM EST Narrative 05/31/2024 4:04 PM EST ? [facility] ?[address] ?[place], [place] [address] ? CT Scan Report ? Signed ? Patient: Inderjit Stoner ?MR ?? #: [id number] ? : 1960 ?Acct:[id number] ? Age/Sex: 63 / M ?ADM Date: 05/31/24 ? Loc: HO.ED ? Attending Dr: ? Ordering Physician: Tala Delgadillo ?? Date of Service: 05/31/24 ?? Procedure(s): CT angio head neck ?? Accession Number(s): [id number] ? cc: Tala Delgadillo; Sherri Selby MD ? Report Number: ?? [id number]: Total DLP = 2963.00 mGy-cm ?? EXAMINATION: [...] The data was ?? processed at the radioisotope technologist's workstation for generation of MIP ?? [...] segment is diminutive. ?? origin of the DIRECTOR MATERNAL CHILD with robust opacification of the posterior ?? communicating artery. Normal opacification of the distal DIRECTOR MATERNAL CHILD segments. ?? -LEFT POSTERIOR CEREBRAL ARTERY: Normal P1 segment. Normal ?? opacification of the distal DIRECTOR MATERNAL CHILD segments. ?? -POSTERIOR COMMUNICATING ARTERIES: Left is [...] DD/ 1439 ? TD/TT: 05/31/24 1515 ? Print Project Manager: ? Procedure Note Donartemioter, Image - 05/31/[address] [place] [address] [address] Scan Report Signed Patient: Inderjit Stoner [facility] #: [id number] : 1960cct:[id number] Age/Sex: 63 / MADM Date: 05/31/24 Loc: HO.ED Attending Dr: Ordering Physician: Tala Delgadillo Date of Service: 05/31/24 Procedure(s): CT angio head neck Accession Number(s): [id number] cc: Tala Delgadillo; Sherri Selby MD Report Number: [id number]: Total DLP = 2963.00 mGy-cm EXAMINATION: CT [...] obtained. The data was processed at the radioisotope technologist's workstation for generation of MIP sequences. [...] P1 segment is diminutive. origin of the DIRECTOR MATERNAL CHILD with robust opacification of the posterior communicating artery. Normal opacification of the distal DIRECTOR MATERNAL CHILD segments. -LEFT POSTERIOR CEREBRAL ARTERY: Normal P1 segment. Normal opacification of the distal DIRECTOR MATERNAL CHILD segments. -POSTERIOR COMMUNICATING ARTERIES: Left is not [...] by: Osmin Lainez MD 05/31/2024 04:01 PM [facility] Dictated By: Osmin Lainez MD Signed By: <Electronically signed by Osmin Lainez MD in OV> 05/31/24 1601 DD/ 1439 TD/TT: 05/31/24 1515 Print Project Manager: [facility] External Provider IMG CT PROCEDURES Final Result * SARS-CoV-2 RNA, Influenza A/B, and RSV RNA, Ql NAAT (05/31/2024 1:49 PM EST) Influenza A PCR NEGATIVE Negative [facility] Influenza B PCR NEGATIVE Negative [facility] Resp Syncy Virus RNA Qual PCR NEGATIVE Negative [facility] SARS COV2 PCR NEGATIVE Negative [facility] Comment:All test results mus [...] use by authorized laboratories.Testing performed on the Penneo GeneXpert utilizingreal-time RT-PCR.All SARS CoV2 and positive influenza A/B results arereported to [facility]. 05/31/2024 1:49 PM EST 05/31/2024 2:25 PM EST Generic External Data Provider LAB MICROBIOLOGY - GENERAL ORDERABLES Final Result [facility] [address] [place] [phone] * High Sensitivity Troponin I (05/31/2024 1:41 PM EST) TROPONIN I HIGH SENSITIVITY <2.7 <3.5 - 35.0 ng/L [facility] Comment:The Martinez high sens itivity Troponin-I results should beused in conjunction with other diagnostic information suchas ECG, clinical observations and information, and patientsymptoms to aid in the diagnosis of UT. 05/31/2024 1:41 PM EST 05/31/2024 1:44 PM EST us Generic External Data Provider LAB BLOOD ORDERAB LES Final Result [facility] [address] [place] [phone] * CBC auto differential (05/31/2024 1:41 PM EST) White Blood Count 5.3 4.8 - 10.8 X10*3/uL [facility] Red Blood Count 5.32 4.60 - 5.80 X10*6/uL [facility] Hemoglobin 14.7 14.0 - 18.0 g/dl [facility] Hematocrit 45.4 42.0 - 52.0 % [facility] Mean Corpuscular Volume 85.3 80.0 - 98.0 fL [facility] Mean Corpuscular Hemoglobin 27.6 27.0 - 33.0 pg [facility] Mean Corpuscular HGB Conc 32.4 31.0 - 36.0 g/dl [facility] Red Cell Distribution Width 13.2 11.0 - 16.0 % [facility] Platelet Count 176 160 - 400 X10*3/uL [facility] Mean Platelet Volume 9.8 9.4 - 12.4 fL [facility] Neutrophils Percent Auto 70.4 45 - 73 % [facility] Imm Gran Pct Auto 0.4 0.0 - 0.4 % [facility] Lymphocytes Percent Auto 23.3 20 - 40 % [facility] Monocytes Percent Auto 4.9 2 - 11 % [facility] Eosinophils Percent Auto 0.6 0 - 4 % [facility] Basophils Percent Auto 0.4 0 - 2 % [facility] NRBC Pct Auto 0.0 0.0 - 0.2 /100WBC [facility] Neutrophils Absolute Auto 3.7 2.0 - 8.3 x10*3/uL [facility] Imm Gran Abs Auto 0.02 0.00 - 0.03 X10*3/uL [facility] Lymphocytes Absolute Auto 1.2 1.2 - 4.9 X10*3/uL [facility] Monocytes Absolute Auto 0.3 0.1 - 1.2 X10*3/uL [facility] Eosinophils Absolute Auto 0.0 0.0 - 0.4 X10*3/uL [facility] Basophils Absolute Auto 0.0 0.0 - 0.2 X10*3/uL [facility] NRBC Abs Auto 0.000 0.0 - 0.012 X10*3/uL [facility] 05/31/2024 1:41 PM EST 05/31/2024 1:44 PM EST Generic External Data Provider LAB BLOOD ORDERAB LES Final Result Performing Organization Address [facility]/ZIP Co de Phone Number [facility] [address] [place] [phone] * Levetiracetam (05/31/2024 1:41 PM EST) Levetiracetam 10.9 6.0 - 46.0 mcg/mL [facility] Comment:Brivaracetam (Brivia ct(R), Rikelta(R)) exhibitssignificant cross- reactivity in the Levetiracetam(Keppra(R), Spritam(R)) immunoassay. If Brivaracetamhas been prescribed, order test code [id number] by LCMSMS.THIS TEST WAS PERFORMED AT:[facility] [place] [address]QOLTCYBLOBO WHEAT MD,PHD 05/31/2024 1:41 PM EST 05/31/2024 1:44 PM EST us Generic External Data Provider LAB BLOOD ORDERAB LES Final Result Performing Organization Address [facility]/ZIP Co de Phone Number [facility] [address] [place] [phone] * Partial Thromboplastin Time, Activated (APTT) (05/31/2024 1:41 PM EST) Partial Thromboplastin Time 28.1 26.0 - 36.8 SEC [facility] Comment:For information rega rding the monitoring of direct thrombininhibitors, please refer to Pharmacy. 05/31/2024 1:41 PM EST 05/31/2024 1:44 PM EST Generic External Data Provider LAB BLOOD ORDERAB LES Final Result Performing Organization Address City/[facility]/ZIP Co de Phone Number [facility] [address] [place] [address] [phone] * Prothrombin Time-INR (05/31/2024 1:41 PM EST) Prothrombin Time 12.1 10.9 - 12.4 SEC [facility] INTERNATIONAL NORM RATIO 1.0 0.9 - 1.1 [facility] Comment:INTERNATIONAL NORMAL IZED RATIO (INR) REFERENCE [...] 1:41 PM EST 05/31/2024 1:44 PM EST [facility] External Data Provider LAB BLOOD ORDERAB LES Final Result Performing Organization Address [facility]/ZIP Co de Phone Number [facility] [address] [place] [phone] * Magnesium (05/31/2024 1:41 PM EST) Magnesium 2.0 1.6 - 2.6 mg/dL [facility] 05/31/2024 1:41 PM EST 05/31/2024 1:44 PM EST us Generic External Data Provider LAB BLOOD ORDERAB LES Final Result Performing Organization Address [facility] Co de Phone Number [facility] [address] [place] [phone] * (ABNORMAL) Hepatic Function Panel (05/31/2024 1:41 PM EST) Pathologist [facility] Bilirubin, Total 1.0 0.0 - 1.0 mg/dL [facility] Bilirubin, Direct 0.3 0.0 - 0.5 mg/dL [facility] Aspartate Amino Transferase 28 5 - 37 U/L [facility] Alanine Aminotransferase 75(H) 0 - 40 U/L [facility] Total Protein 7.8 6.5 - 8.0 g/dL [facility] Albumin Level 4.4 3.5 - 5.0 g/dL [facility] Alkaline Phosphatase 96 39 - 117 U/L [facility] 05/31/2024 1:41 PM EST 05/31/2024 1:44 PM EST Generic External Data Provider LAB BLOOD ORDERAB LES Final Result Performing Organization Address [facility] de Phone Number [facility] [address] [place] [phone] * (ABNORMAL) Basic Metabolic Panel (05/31/2024 1:41 PM EST) Pathologist [facility] Sodium 141 135 - 145 mmol/L [facility] Potassium 4.4 3.3 - 5.1 mmol/L [facility] Chloride 109(H) 96 - 108 mmol/L [facility] Carbon Dioxide 27 22 - 29 mmol/L [facility] Anion Gap 9(L) 12 - 20 [facility] Urea Nitrogen (BUN) 20(H) 9 - 16 mg/dL [facility] Creatinine, Serum 1.13 0.5 - 1.4 mg/dL [facility] Creatinine Clr Calc Pharmacy 73.7 [facility] Comment:eGFR (calculated fro m the MDRD study equation) and eCrCl(calculated from the Cockcroft-Gault equation) are based ondifferent parameters and may not yield comparable results.If eCrCl result is absurd, please check patient'sheight/weight. Estimated Glomerular Filt Rate >60 [facility] Comment:Chronic Kidney Disea se: Estimated GFR < 60 mL/min/1.50k7Kgekmv Kidney Disease: Estimated GFR < 15 mL/min/1.73m2 Glucose 102 60 - 115 mg/dL [facility] Calcium 9.3 8.4 - 10.2 mg/dL [facility] 05/31/2024 1:41 PM EST 05/31/2024 1:44 PM EST us Generic External Data Provider LAB BLOOD ORDERAB LES Final Result Performing Organization Address City/State/[facility] Co de Phone Number [facility] [address] [place] [phone] * (ABNORMAL) Lipid Panel, Standard (03/19/2024 11:05 AM EST) Triglycerides 137 <150 mg/dL [facility] Comment:Desirable Triglyceri de: less than 150 mg/dLBorderline High Triglyceride 150-199 mg/dLHigh Triglyceride: 200-499 mg/dLVery High Triglyceride: greater than or equal to 5OO mg/dL Cholesterol 143 <200 mg/dL [facility] Comment:Desirable Cholestero l: less than 200 mg/dLBorderline High Cholesterol: 200-239 mg/dLHigh Cholesterol: greater than 239 mg/dL LDL Cholesterol Calculated 76 <100 mg/dL [facility] Comment:Desirable LDL: less than 100 mg/dLNear Optimal/Above Optimal LDL: 110- 129 mg/dLBorderline High LDL: 130-159 mg/dLHigh LDL: 160-189 mg/dLVery High LDL: greater than or equal to 190 mg/dL HDL Cholesterol 40(L) >40 mg/dL [facility] Comment:Desirable HDL: great er than 40 mg/dL Note: This HDL assay may give artificially low results in patients with liver disease. Blood Venous blood specimen / Unknown 03/19/2024 11:05 AM EST 03/19/2024 11:05 AM EST Sherri Navarro MD LAB BLOOD ORDERAB LES Final Result Performing Organization Address [facility] Co de Phone Number [facility] [address] [place] [phone] * Fecal Globin by Immunochemistry (03/07/2024 12:00 AM EDT) Fecal Globin By Immunochemistry SEE NOTE [employer] [place] Comment: ??FECAL GLOBIN BY IMMUNOCHEMISTRY ?Micro Number: ?[id number] ??Test Status: ? Final ??Specimen Source: ?? Insure (tm) fobt test card ??Specimen Quality: ??Adequate ??Fecal Globin: ?Not Detected 03/07/2024 03/15/2024 5:1 8 AM EDT Narrative [facility] - 03/15/2024 4:25 PM EDT FASTING: UNKNOWN [facility] External Provider LAB BODY FLUIDS AND STOOLS ORDERABLES Final Result Performing Organization Address City/[facility] Co de Phone Number [facility] [address], [place] [phone] [employer] [place] [facility] [address] [place] [phone] * Hepatitis C Antibody with Reflex to HCV, RNA, Quantitative, Real-Time PCR (11/16/2023 12:08 PM EDT) Hepatitis C Antibody Nonreactive Nonreactive [facility] Comment:Antibodies to HCV no t detected; does not exclude early acuteHCV infection. Blood Venous blood specimen / Unknown 11/16/2023 12:08 PM EDT 11/16/2023 12:08 PM EDT us Sherri Navarro MD LAB BLOOD ORDERAB LES Final Result Performing Organization Address [facility]/ZIP Co de Phone Number [facility] [address] [place] [phone] * HIV-1/2 Antigen and Antibodies, Fourth Generation, with Reflexes (11/16/2023 12:08 PM EDT) HIV AB/AG Nonreactive Nonreactive [facility] Comment:HIV-1 p24 Ag and/or HIV-1/HIV-2 Ab not detected.A test result that is nonreactive does not exclude thepossibility of exposure to or infection with HIV-1 and/orHIV-2. Nonreactive results in this assay for individualswith prior exposure to HIV-1 and/or HIV-2 may be due toantigen and antibody levels that are below the limit ofdetection of this assay.The [employer] HIV Ag/Ab Combo assay result andsupplemental assay results should be interpreted inconjunction with the patient's clinical presentation,history and other laboratory results. If the results areinconsistent with clinical evidence, additional testing issuggested to confirm the result. Blood Venous blood specimen / Unknown 11/16/2023 12:08 PM EDT 11/16/2023 12:08 PM EDT us Sherri Navarro MD LAB BLOOD ORDERAB LES Final Result Performing Organization Address [facility]/ZIP Co de Phone Number [facility] [address] [place] [phone] * Hemoglobin A1c (11/16/2023 12:08 PM EDT) Hemoglobin A1c 5.8 <6.0 % [facility] Comment:Hemoglobin A1C Refer ence Range Adults: 4.8 - 6.0 % Non diabetic: < 6.0 % Goal: < 7.0 %Additional Action Suggested: > 8.0 %Note: Hemoglobin A1c results are invalid for patients with abnormal amounts of HbF. Blood transfusions may impact the HbA1c concentration in the patient sample. Estimated Average Glucose 120 mg/dL [facility] Comment:eAG = Estimated ave rage glucose which is %A1C expressed asaverage glucose, using the formula of the Y2I-LkglqtdIjejjfz Glucose study (ADAG), Diabetes Care, Vol.31,#8,Dec. 2007 Blood Venous blood specimen / Unknown 11/16/2023 12:08 PM EDT 11/16/2023 12:08 PM EDT us Sherri Navarro MD LAB BLOOD ORDERAB LES Final Result [facility] [address] [place] [phone] from Last 3 Months or Most Recently Relevant to Health Maintenance [place] [address] [place] [address] - [facility] - [facility] Care Teams Electronics Lead Relationship Specialty Start Date End Date Sherri Selby MD [address] [place] [phone] PCP - General Internal Medicine 02/02/23
--- OUTSIDE RECORDS SUMMARY | 2024-08-15 15:45 | XMS_ITS | Encounter Summary ---
Author Organization [employer] Address [address] [facility] 7 [place] [address] Care Team Providers Care Director Advanced Name Role Phone Sherri Selby MD Primary Care Pro vider Reason for Visit * Reason Onset Date Comments Prior Auth Prescription 08/13/2024 Lidocain e patches Encounter Details Date Type Department Care Team ([facility] st Contact Info) Description 08/13/2024 Telephone [facility] [address] [place] [address] Sherri Selby MD 230 [place] [address] Prior Auth Prescription (Lidocaine patches) Social History Tobacco Use Types Packs/Day Years [...] encounter Miscellaneous Notes * Telephone Encounter - Mone Weston RN - 08/15/2024 10:11 AM EDT Images from the original note were not included. TC placed to pt via [employer] asl interpreter (ID#[id number]) to inform and advise of below PCP message. Pt verbalized understanding that the EMLA cream is covered instead of licoderm patches and medication was sent to pharmacy. Pt denies questions at this time. Sherri Navarro MD [facility] Caller: Unspecified (2 days ago, 2:20 PM) Hi please can you inform pt that EMLA cream is covered by insurance instead of lidoderm patches ,I sent cream today Thanks * Telephone Encounter - Erika Truong - 08/14/2024 9:10 AM EDT PA DENIAL for Lidocaine patches received and scanned into media. If wish to appeal, please call forpeer to peer review #[phone] * Telephone Encounter - Erika Truong - 08/13/2024 2:20 PM EDT PA initiated on Covermymeds for Lidocaine patches . Approval/denial pending. Whelan: [id number] documented in this encounter Plan of Treatment Upcoming Encounters Date Type Department Care Team (Late st Contact Info) Description 08/17/2024 9:00 AM EDT Office Visit [facility] [address] [place] [address] Sherri Selby MD [address] [place] [address] [phone] documented as of this encounter Visit Diagnoses Not on filedocumented in this encounter Additional Health Concerns Assessment Noted Time PHQ-9 Depression Total Score: 12 03/28/ 024 3:28 PM EST documented as of this encounter Care Teams Director Advanced Relationship Specialty Start Date End Date Sherri Selby MD [address] [place] [address] [phone] PCP - General Internal Medicine 02/02/23 documented as of this encounter
--- OUTSIDE RECORDS SUMMARY | 2024-08-15 15:46 | XMS_ITS ---
Author Name [employer] Organization Unknown Encounters Encounter Type Encounter Reason Primary Diagnosis Location Date Emergency testicular pain testicular pain [facility] 06/16/2022 Care Team Organization Name Specialty Phone Email Start Date End Da te [facility] 06/16/2022 0 06/16/2022 [facility] 06/16
--- OUTSIDE RECORDS SUMMARY | 2024-08-15 15:46 | XMS_ITS | Encounter Summary ---
Author Organization [employer] Address [address] [facility] [address] 7[address] [place] [address] Care Team Providers Care Tooth Cutter Contact Wheel Name Role Phone Sherri Selby MD Primary Care Pro vider Reason for Visit * Reason Comments Med Change Request Encounter Details Date Type Department Care Team ([facility] st Contact Info) Description 08/13/2024 Refill [facility] [address] [place], [place] [phone] Mayelin Robin MD 230 [place] [address] Social History Tobacco Use Types Packs/Day Years [...] Description 08/17/2024 9:00 AM EDT Office Visit [facility] [address] [place] [address] Sherri Selby MD [address] [place] [address] documented as of this encounter Visit Diagnoses Not on filedocumented in this encounter Additional Health Concerns Assessment Noted Time PHQ-9 Depression Total Score: 12 024 3:28 PM EST documented as of this encounter Care Teams Tooth Cutter Contact Wheel Relationship Specialty Start Date End Date Sherri Selby MD [address] [place] [phone] PCP - General Internal Medicine 02/02/23 documented as of this encounter
--- OUTSIDE RECORDS SUMMARY | 2024-08-15 15:46 | XMS_ITS | Encounter Summary ---
Author Organization [employer] [facility] Address [address] [place] [address] 7 [place] [address] Care Team Providers Care Photo Retoucher Name Role Phone Lorenza Hodge [facility] Primary Care Provider +1- [phone] Sherri Selby MD Primary Care Pro vider Encounter Details Date Type Department Care Team (Late st Contact Info) Description 11/25/2022 Orders Only [facility] MEDICINE [address] [place] [address] Lorenza Hodge [address] Dept [place] [address] Social History Tobacco Use Types Packs/Day Years [...] 9:00 AM EDT Office Visit [facility] [address] [place] [address] [phone] Sherri Selby MD [address] [place] [address] [phone] documented as of this encounter Procedures Procedure Name Priority Date/Time Associated Diagnosis Comments US RENAL BI Routine 12/06/2022 1:54 PM EDT documented in this encounter Results * US RENAL BI (12/06/2022 1:54 PM EDT) Anatomical Region Laterality Modality Abdomen Ultrasound 12/06/2022 1:54 PM EDT Narrative 12/09/2022 6:44 PM EDT ? [facility] ?[address] ?[place] [address] ? Ultrasound Report ? Signed ? Patient: Inderjit Stoner ?MR ?? #: [id number] ? : 1960 ?Acct:[id number] ? Age/Sex: 62 / M ?ADM Date: 12/06/22 ? Loc: HO.US ? Attending Dr: Lorenza OCONNELL ? Ordering Physician: Lorenza Hodge ?? Date of Service: 12/06/22 ?? Procedure(s): US renal BI ?? Accession Number(s): [id number] ? cc: Lorenza Hodge ? EXAMINATION: ?? [...] 1841 ? DD/ 1354 ? TD/TT: ? Residential Property Tax Appraiser: ? Procedure Note Donartemioter, Image - 12/09/2022 [place] [address] Ultrasound Report Signed Patient: Inderjit Stoner [facility] #: [id number] : 1Acct:[id number] Age/Sex: 62 / MADM Date: 12/06/22 Loc: HO.US Attending Dr: Lorenza OCONNELL Ordering Physician: Lorenza Hodge Date of Service: 12/06/22 Procedure(s): US renal BI Accession Number(s): [id number] cc: Lorenza Hodge EXAMINATION: US RETROPERITONEAL LIMITED [...] in OV> 12/09/22 1841 DD/ 1354 TD/TT: Residential Property Tax Appraiser: us Lorenza Hodge COMMERCIAL PAINTER IMG US PROCEDURES Edited R esult - Final documented in this encounter Visit Diagnoses Not on filedocumented in this encounter Additional Health Concerns Assessment Noted Time PHQ-9 Depression Total Score: 16 023 9:09 AM EDT documented as of this encounter Care Teams Photo Retoucher Relationship Specialty Start Date End Date Lorenza Hodge FNP PCP - General Family Medicine 04/05/22 02/01/23 Shreri Selby MD [address] [place] [address] PCP - General Internal Medicine 02/02/23 documented as of this encounter
--- OUTSIDE RECORDS SUMMARY | 2024-08-15 15:46 | XMS_ITS | Encounter Summary ---
Author Organization [employer] [facility] Address [address] [facility] 7 [place] [address] Care Team Providers Care Lapping Machine Tender Name Role Phone Funmi Easton MD Primary Care Provider Lorenza Struod Primary Care Provider +1- [phone] Sherri Selby MD Primary Care Pro vider Encounter Details Date Type Department Care Team (Latest Contact Info) Description 03/23/2021 Abstract [facility] CONVERSIONS Dental, Provider, DDS Social History [...] Description 08/17/2024 9:00 AM EDT Office Visit [facility] MEDICINE 230 [place] [address] Sherri Selby MD 230 [place], [place] [phone] documented as of this encounter Visit Diagnoses Not on filedocumented in this encounter Care Teams Lapping Machine Tender Relationship Specialty Start Date End Date Funmi Easton MD PCP - General Family Medicine 03/20/19 04/04/22 Lorenza Hodge FNP PCP - General Family Medicine 04/05/22 02/01/23 Sherri Selby MD [address] [place] [address] PCP - General Internal Medicine 02/02/23 documented as of this encounter
--- OUTSIDE RECORDS SUMMARY | 2024-08-15 15:46 | XMS_ITS | Encounter Summary ---
Author Organization [employer] [facility] Address [address] [place] [address] 7 [place] [address] Care Team Providers Care Liability Claims Representative Name Role Phone Funmi Easton MD Primary Care Provider Lorenza Stroud Primary Care Provider +1- [phone] Sherri Selby MD Primary Care Pro vider Encounter Details Date Type Department Care Team (Latest Contact Info) Description 05/02/2019 Abstract [facility] CONVERSIONS Dental, Provider, DDS Social History [...] 9:00 AM EDT Office Visit [facility] MEDICINE 230 [place] [address] Sherri Selby MD 230 [place] [address] documented as of this encounter Visit Diagnoses Not on filedocumented in this encounter Care Teams Liability Claims Representative Relationship Specialty Start Date End Date Funmi Easton MD PCP - General Family Medicine 03/20/19 04/04/22 Lorenza Hodge FNP PCP - General Family Medicine 04/05/22 02/01/23 Sherri Selby MD [address] [place] [phone] PCP - General Internal Medicine 02/02/23 documented as of this encounter
--- OUTSIDE RECORDS SUMMARY | 2024-08-15 15:46 | XMS_ITS | Encounter Summary ---
Author Organization [employer] [facility] Address [address] [place] [address] 7 [place] [address] Care Team Providers Care Security Software Engineer Name Role Phone Funmi Easton MD Primary Care Provider Lorenza Stroud Primary Care Provider +1- [phone] Sherri Selby MD Primary Care Pro vider Encounter Details Date Type Department Care Team (Latest Contact Info) Description 12/24/[address] [facility] CONVERSIONS Dental, Provider, DDS Social History Tobacco [...] Description 08/17/2024 9:00 AM EDT Office Visit [facility] MEDICINE 230 [place] [address] Sherri Selby MD [address] [place], [place] [phone] documented as of this encounter Visit Diagnoses Not on filedocumented in this encounter Care Teams Security Software Engineer Relationship Specialty Start Date End Date Funmi Easton MD PCP - General Family Medicine 03/20/19 04/04/22 Lorenza Hodge FNP PCP - General Family Medicine 04/05/22 02/01/23 Sherri Selby MD [address] [place] [address] PCP - General Internal Medicine 02/02/23 documented as of this encounter
--- OUTSIDE RECORDS SUMMARY | 2024-08-15 15:46 | XMS_ITS | Encounter Summary ---
Author Organization [employer] Address [address] [facility] 7t [place] [address] Care Team Providers Care Foam Cutting Supervisor Name Role Phone Sherri Selby MD Primary Care Pro vider Encounter Details Date Type Department Care Team (Late st Contact Info) Description 08/13/2024 Telephone [facility] MEDICINE [address] [place] [address] Sherri Selby MD [address] [place] [address] Social History Tobacco Use Types Packs/Day Years [...] Telephone Encounter - Erika Truong - 08/13/2024 2:30 PM EDT Electromagnet Crane Operator called [facility] who stated [place]-3 no longer covered by [employer]. Covered alternative: Vascepa * Telephone Encounter - Jazmyn Black - 08/13/2024 1:52 PM EDT Pt walked in requesting a pa for omega documented in this encounter Plan of Treatment Upcoming Encounters Date Type Department Care Team (Late st Contact Info) Description 08/17/2024 9:00 AM EDT Office Visit [facility] MEDICINE [address] [place] [address] Sherri Selby MD [address] [place] [address] documented as of this encounter Visit Diagnoses Not on filedocumented in this encounter Additional Health Concerns Assessment Noted Time PHQ-9 Depression Total Score: 12 024 3:28 PM EST documented as of this encounter Care Teams Foam Cutting Supervisor Relationship Specialty Start Date End Date Sherri Selby MD [address] [place] [phone] PCP - General Internal Medicine 02/02/23 documented as of this encounter
--- OUTSIDE RECORDS SUMMARY | 2024-08-15 15:46 | XMS_ITS | Encounter Summary ---
Author Organization [employer] Address [address] [facility] 7t [place] [address] Care Team Providers Care Aircraft Power Plant Assembler Name Role Phone Lorenza HodgeP Primary Care Provider +1- [phone] Sherri Selby MD Primary Care Pro vider Reason for Visit * Reason Onset Date Comments triage 06/11/2022 Encounter Details Date Type Department Care Team (Late st Contact Info) Description 06/11/2022 Telephone [facility] MEDICINE 230 [place] [address] Lorenza Hodge FNP [address] [place] [address] Dept [place] [address] triage Social History Tobacco Use Types Packs/Day [...] on pt. Voice mail to call back [facility] nurses at [phone] or if emergent care needed to go [...] Description 08/17/2024 9:00 AM EDT Office Visit [facility] MEDICINE [address] [place] [address] Sherri Selby MD [address] [place] [phone] documented as of this encounter Visit Diagnoses Not on filedocumented in this encounter Care Teams Aircraft Power Plant Assembler Relationship Specialty Start Date End Date Lorenza Hodge FNP PCP - General Family Medicine 04/05/22 02/01/23 Sherri Selby MD [address] [place] [address] [phone] PCP - General Internal Medicine 02/02/23 documented as of this encounter
== END 2024-08-15 13:34 | disposition home or self-care (01) ==
LOC: HO.HGI 13:10
PROVIDERS: PCP Student in an Organized Health Care Education/Training Program; Visit Provider Nurse Practitioner Family
DX: K59.04 Chronic idiopathic constipation (principal); R19.5 Other fecal abnormalities; K21.9 Gastro-esophageal reflux disease without esophagitis
CPT/HCPCS: 99214; G2211

== ENCOUNTER → 2024-08-15 13:09 | Outpatient (BNVA) | payer OTHER, SELFPAY | PROVIDERS: PCP Student in an Organized Health Care Education/Training Program; Visit Provider Nurse Practitioner Family | DX: K58.1 Irritable bowel syndrome with constipation (principal); K59.04 Chronic idiopathic constipation; K21.9 Gastro-esophageal reflux disease without esophagitis; R10.32 Left lower quadrant pain; R19.5 Other fecal abnormalities; Z79.899 Other long term (current) drug therapy | CPT/HCPCS: 99212 ==

== ENCOUNTER 2024-08-30 08:10 | Outpatient (REF) | payer OTHER, SELFPAY ==
--- NOTE | ~2024-08-30 | US_ITS ---
EXAMINATION: US ABDOMEN HISTORY: pt with ongoing elevated liver enzymes needs to eval liver thanks TECHNIQUE: Real-time grayscale ultrasound imaging of the abdomen was performed and images were reviewed. COMPARISON: Comparison is made with the prior examination dated 09/15/2022. FINDINGS: Liver: The right lobe of the liver measures 12.8 cm in size. The left lobe of the liver measures 8.8 cm in size. The liver demonstrates normal homogeneous echotexture. No focal mass or intrahepatic biliary ductal dilatation is identified. There is normal hepatopedal flow in the portal vein. Gallbladder and biliary tree: The gallbladder is unremarkable, without evidence of calculi, wall thickening, or pericholecystic fluid. There is no sonographic Carnes sign. The common bile duct is normal in caliber measuring 2 mm. Kidneys: Right kidney measures 11.8 cm in length. The left kidney measures 12.4 cm in length. There is a prominent column of Charan on the left. The kidneys are otherwise unremarkable, without evidence of masses, hydronephrosis, or calculi. Pancreas: The pancreas is obscured by bowel gas. Spleen: The spleen is normal in size and contour, measuring 10.2 cm in length. Abdominal aorta and inferior vena cava: The visualized portions of the abdominal aorta and inferior vena cava are normal in caliber. There is no free fluid in the abdomen. US/US abdomen complete IMPRESSION: The pancreas is obscured by bowel gas. Otherwise unremarkable abdominal ultrasound. Electronically signed by: Carlton Raya MD 08/30/2024 09:27 AM EDT
--- OUTSIDE RECORDS SUMMARY | 2024-08-30 08:25 | XMS_ITS | Encounter Summary ---
Author Organization [employer] [facility] Address [address] [place] [address] 7t [place] [address] Care Team Providers Care Engineering Specialist Name Role Phone Funmi Easton MD Primary Care Provider Lorenza Stroud UX VISUAL DESIGNER Primary Care Provider +1- [phone] Sherri Selby MD Primary Care Pro vider Encounter Details Date Type Department Care Team (Latest Contact Info) Description 12/24/2021 Abstract [facility] CONVERSIONS Dental, Provider, DDS Social [...] Care Team (Late st Contact Info) Description 09/04/2024 10:30 AM EDT Clinical Support [facility] MEDICINE [address] [place] [address] 10/10/2024 10:00 AM EDT Office Visit [facility] MEDICINE [address] [place] [address] Sherri Selby MD [address] [place] [address] documented as of this encounter Visit Diagnoses Not on filedocumented in this encounter Care Teams Engineering Specialist Relationship Specialty Start Date End Date Funmi Easton MD PCP - General Family Medicine 11/5/19 11/20/22 Lorenza Hodge FNP PCP - General Family Medicine 04/05/22 02/01/23 Sherri Selby MD [address] [place] [address] PCP - General Internal Medicine 02/02/23 documented as of this encounter
--- OUTSIDE RECORDS SUMMARY | 2024-08-30 08:25 | XMS_ITS | Encounter Summary ---
Author Organization [employer] Address [address] [facility] 7t [place] [address] Care Team Providers Care Guest Service Representative Name Role Phone Lorenza Hodge OCCUPATIONAL THERAPY SPECIALIST Primary Care Provider +1- [phone] Sherri Selby MD Primary Care Pro vider Reason for Visit * Reason Onset Date Comments triage 06/11/2022 Encounter Details Date Type Department Care Team (Late st Contact Info) Description 06/11/2022 Telephone [facility] MEDICINE [address] [place] [address] Lorenza Hodge FNP [address] [place] [address] Dept [place] [address] triage Social History Tobacco Use Types Packs/Day [...] on pt. Voice mail to call back [facility] nurses at [phone] or if emergent care needed to go [...] Description 09/04/2024 10:30 AM EDT Clinical Support [address] [address] 10/10/2024 10:00 AM EDT Office Visit [facility] [address] [place] [address] Sherri Selby MD [address] [place] [address] documented as of this encounter Visit Diagnoses Not on filedocumented in this encounter Care Teams Guest Service Representative Relationship Specialty Start Date End Date Lorenza Hodge FNP PCP - General Family Medicine 04/05/22 02/01/23 Sherri Selby MD [address] [place] [address] PCP - General Internal Medicine 02/02/23 documented as of this encounter
--- OUTSIDE RECORDS SUMMARY | 2024-08-30 08:25 | XMS_ITS | Encounter Summary ---
Author Organization [employer] [facility] Address [address] [place] [address] 7t [place] [address] Care Team Providers Care Supervisor Maintenance And Custodians Name Role Phone Funmi Easton MD Primary Care Provider Lorenza Stroud RODEO RIDER Primary Care Provider +1- [phone] Sherri Selby MD Primary Care Pro vider Encounter Details Date Type Department Care Team (Latest Contact Info) Description 03/23/2021 Abstract [facility] CONVERSIONS Dental, Provider, DDS Social History Tobacco [...] 10:30 AM EDT Clinical Support [facility] MEDICINE [address] [place] [address] 10/10/2024 10:00 AM EDT Office Visit [facility] MEDICINE [address] [place] [address] Sherri Selby MD [address] [place] [address] documented as of this encounter Visit Diagnoses Not on filedocumented in this encounter Care Teams Supervisor Maintenance And Custodians Relationship Specialty Start Date End Date Funmi Easton MD PCP - General Family Medicine 11/5/19 11/20/22 Lorenza Hodge FNP PCP - General Family Medicine 04/05/22 02/01/23 Sherri Selby MD [address] [place] [address] PCP - General Internal Medicine 02/02/23 documented as of this encounter
--- OUTSIDE RECORDS SUMMARY | 2024-08-30 08:25 | XMS_ITS | Encounter Summary ---
Author Organization [employer] Address [address] [facility] 7 [place] [address] Care Team Providers Care Firewall Engineer Name Role Phone Lorenza Hodge [facility] Primary Care Provider +1- [phone] Sherri Selby MD Primary Care Pro vider Encounter Details Date Type Department Care Team (Late st Contact Info) Description 11/25/2022 Orders Only [facility] MEDICINE [address] [place] [address] Lorenza Hodge [address] Dept [place] [address] Social History Tobacco Use Types Packs/Day Years [...] Description 09/04/2024 10:30 AM EDT Clinical Support [address] [address] 10/10/2024 10:00 AM EDT Office Visit [address] [address] Sherri Selby MD [address] [place] [address] documented as of this encounter Procedures Procedure Name Priority Date/Time Associated Diagnosis Comments US RENAL BI Routine 12/06/2022 1:54 PM EDT documented in this encounter Results * US RENAL BI (12/06/2022 1:54 PM EDT) Anatomical Region Laterality Modality Abdomen Ultrasound 12/06/2022 1:54 PM EDT Narrative 12/09/2022 6:44 PM EDT ? [facility] ?[address] ?[place] [address] ? Ultrasound Report ? Signed ? Patient: Inderjit Stoner ?MR ?? #: [id number] ? : 1960 ?Acct:[id number] ? Age/Sex: 62 / M ?ADM Date: 12/06/22 ? Loc: HO.US ? Attending Dr: Lorenza Hodge REPAIR SUPERVISOR ? Ordering Physician: Lorenza Hodge REPAIR SUPERVISOR ?? Date of Service: 12/06/22 ?? Procedure(s): US renal BI ?? Accession Number(s): [id number] ? cc: Lorenza Hodge REPAIR SUPERVISOR ? EXAMINATION: ?? US RETROPERITONEAL LIMITED (RENAL [...] 1841 ? DD/ 1354 ? TD/TT: ? Assembler Corncob Pipes: ? Procedure Note Donotmillicentter, Image - 12/09/[address] [address] Ultrasound Report Signed Patient: Inderjit Stoner [facility] #: [id number] : [id number]:[id number] Age/Sex: 62 / MADM Date: 12/06/22 Loc: HO.US Attending Dr: Lorenza Hodge REPAIR SUPERVISOR Ordering Physician: Lorenza Hodge Date of Service: 12/06/22 Procedure(s): US renal BI Accession Number(s): [id number] cc: Lorenza Hodge REPAIR SUPERVISOR EXAMINATION: US RETROPERITONEAL LIMITED (RENAL ONLY) CLINICAL [...] in OV> 12/09/22 1841 DD/ 1354 TD/TT: Assembler Corncob Pipes: Lorenza OCONNELL [facility] US PROCEDURES Edited R esult - Final documented in this encounter Visit Diagnoses Not on filedocumented in this encounter Additional Health Concerns Assessment Noted Time PHQ-9 Depression Total Score: 16 023 9:09 AM EDT documented as of this encounter Care Teams Firewall Engineer Relationship Specialty Start Date End Date Lorenza Hodge FNP PCP - General Family Medicine 04/05/22 02/01/23 Sherri Selby MD [address] [place] [address] PCP - General Internal Medicine 02/02/23 documented as of this encounter
--- OUTSIDE RECORDS SUMMARY | 2024-08-30 08:25 | XMS_ITS | Clinical Summary ---
Author Organization [facility] Address [address] [place] [address] Phone Care Team Providers Care Licensed Electrician Name Role Phone Unavailable Primary Care Provider [...] Panel) 04/18/2022 Colorectal Cancer Screening: Colonoscopy 04/18/2022 HIV Screening 04/18/2022 COVID-19 Vaccine ( - 2023-2 5 season) 2024 Influenza Vaccine (Season Ended) 2025 RSV Immunization Adult Patie nts (1 - [...] age to complete this topic Meningococcal B Vaccine Aged Out No l onger eligible based on patient's age to complete [...]
--- OUTSIDE RECORDS SUMMARY | 2024-08-30 08:25 | XMS_ITS | Clinical Summary ---
Author Organization [employer] Address [address] [facility] 7t [place] [address] Care Team Providers Care Space And Storage Clerk Name Role Phone Sherri Selby MD Primary Care Pro vider Allergies Active Allergy Reactions Criticality Noted Date Comments Fruit Extracts 08/06/2022 Other reaction(s): mouth itches Medications * This document contains information received from the source organization and may not represent a complete record from that organization. famotidine (Pepcid) 40 MG tablet Take 40 mg by mouth at bedtime. 07/16/19 23 Active senna (Senokot) 8.6 MG tablet [...] 0.4 MG SL tabletIndicati ons:Atheroscle rosis of alutiiq coronary artery of alutiiq heart with stable angina pectoris (CMS/HCC) Place [...] mouth 1 (one) time. 07/08/19 24 Active topiramate (Topamax) 25 MG tablet Take 25 mg by mouth at bedtime. 08/26/19 24 Active Linzess 290 MCG capsule Take 290 mcg by mouth in the morning. 08/05/19 24 Active Multiple Vitamins-Disability Insurance Claim Examiner als (CertaVite/Ant ioxidants) tablet Take 1 tablet [...] pain. 30 g 2 08/15/19 25 Active dicyclomine (Bentyl) 10 MG capsule Take 10 mg by mouth. 08/16/19 25 Active traZODone (Desyrel) 50 MG tablet Take 50 mg by mouth at bedtime. 08/04/19 25 Active hydrOXYzine pamoate (Vistaril) 25 MG capsule TAKE 1-2 CAPSULE (S) BY MOUTH ONCE DAILY NEEDED ANXIETY 08/26/19 24 Active sodium chloride (Hatillo) 0.65 % nasal spray Administer 1 spray into each nostril if needed for congestion. 15 mL 2 08/18/19 25 026 Active Icosapent Ethyl (Vascepa) 1 g capsule Take 2 capsules (2 g) by mouth with breakfast and with evening meal. 120 capsule 11 08/23/19 25 026 Active propranolol (Inderal) 10 MG tablet 08/10/19 23 025 Discontinued(Ot her) primidone (Mysoline) 50 MG tablet Take 50 mg by mouth at bedtime. 09/26/19 24 025 Discontinued(Ot her) methocarbamol (Robaxin) 500 MG tablet PLEASE SEE ATTACHED FOR DETAILED DIRECTIONS 11/16/19 24 025 Discontinued(Ot her) lidocaine (Lidoderm) 5 % patchIndicatio ns:Flank pain [...] Active Problems Problem Noted Date Diagnosed Date Transaminitis 08/17/2024 Carotid stenosis, asymptomatic, bilateral 2024 Poor memory 03/03/2024 Overweight 03/03/2024 Blurry vision [...] hemorrhoids and left sided diverticulosis Atherosclerosis of alutiiq co ronary artery of alutiiq heart with stable angina pectoris 08/10/2022 Overview (11/24/2022): Cardiac hx Chest pain continued SOB Leg swelling Assessment & Plan (11/24/2022 6:12 PM EDT): Try and locate Cards notes Check BNP F/u PRN Gastroesophageal reflux disease 06/14/2022 Migraine without aura and wi thout status migrainosus, not intractable 06/07/2022 Overview (02/02/2023): Care Managed by [facility] - Pt has chronic left christian migraine. Injury to L christian about 3 years ago. 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 and passing out Care Managed by [facility] Last appt 04/28/22 Treating Keppra 250mg BID [...] to locate records Gave pt card with [facility] Fax number and have all specialists [...] intervention and Patient to reach out to [facility] team as needed Rule Out Diagnoses n/a [...] Encounters Date Type Department Care Team Description 08/17/2024 9:00 AM EDT Office Visit [facility] MED[facility] [address] [place] [address] Sherri Selby MD Transaminitis (Primary Dx); Encounter for immunization; Dietary counseling; Exercise counseling; Severe episode of recurrent major depressive disorder, with psychotic features (CMS/HCC); 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); Atherosclerosis of alutiiq coronary artery of alutiiq heart with stable angina pectoris (CMS/HCC); Mixed hyperlipidemia; Health care maintenance; Poor memory; Carotid stenosis, asymptomatic, bilateral 08/17/2024 Travel 08/14/2024 Orders Only [facility] [address] [place] [address] Sherri Selby MD 08/14/2024 Orders Only [facility] [address] [place] [address] Aditi Tabor MD 08/13/2024 Telephone [facility] [address] [place] [address] Sherri Selby MD Prior Auth Prescription (Lidocaine patches) 08/13/2024 Telephone [facility] [address] [place] [address] Sherri Selby MD 08/13/2024 Refill [facility] [address] [place] [address] Mayelin Robin MD 08/06/2024 Telephone [facility] [address] [place] [address] Sherri Selby MD chart prep 06/28/2024 Refill [facility] [address] [place] [address] Sherri Selby MD TIA (transient ischemic attack) 06/26/2024 1:00 PM EST Office Visit [facility] ADULT DENTAL [address] [place] [address] Divina Vickers Encounter for dental examination (Primary Dx); Dental calculus; Dental plaque; Dental caries 06/08/2024 Telephone [facility] [address] [place] [address] Chrissy Olivera MA August Recall 06/06/2024 Telephone [facility] [address] [place] [address] Christine Moses RN ER Follow-up from Last 3 Months Immunizations Name Administration Dates Next Due Hep B, adult 08/17/2024,01/10/2024,12/07/2023 Influenza Injectable Quadriv alant Preservative Free IIV4 MDCK 03/14/2020 Influenza injectable quadriv alent preservative free 02/09/2022,06/02/2021 Influenza, IIV3, injectable 04/15/2014 Influenza, Split (incl. carl fied surface antigen) 01/20/2015 Influenza, seasonal, injecta ble, preservative free 03/02/2024 Pfizer Covid-19 Vaccine 12+ 03/02/2024, 4 [...] Answer Date Recorded Patient Health Questionnaire-9 Score 7 08/17/2024 Patient Health Questionnaire-9 Score 7 08/17/2024 Last PHQ-9: Questionnaire Data Not on file 0 08/17/2024 Housing Stability Answer Date Recorded What is your housing situation today? I have bronwyn arango 10/11/[address] you li ve. Do you have problems with any of the following? None of the above 10/11/2023 Food Insecurity Answer Date Recorded Within the past 12 months, y ou worried that your food would run out before you got money to buy more: Never True 08/17/2024 Within the past 12 months,th e food you bought just didn't last and you didn't have enough money to get more: Never True 08/2024 Transportation Answer Date Recorded In the past [...] Answer Date Recorded Patient Health Questionnaire-2 Score 2 08/17/2024 Internet Access Answer Date Recorded Internet Access Q1 Yes 08/17/2024 Internet Access Q2 Not on file 08/17/2024 Sex and Gender Information Value Date Recorded Sex Assigned at Male 03/15/2022 10:14 AM EDT Legal Sex Male 10:14 AM EDT Gender Identity Male 03/15/2022 10:14 AM EDT Sexual Orientation Straight 03/15/2022 10 :14 AM EDT Last Filed Vital Signs Vital Sign Reading Time Taken Comments Blood Pressure 110/67 08/17/2024 8:59 AM EDT Pulse 67 08/17/2024 8:59 AM EDT Temperature 36.4 ??C (97.6 ??F) 08/17/2024 8:59 AM ED T Respiratory Rate 20 08/17/2024 8:59 AM EDT Oxygen Saturation 97% 08/17/2024 8:59 AM EDT Inhaled Oxygen Concentration - - Weight 86.9 kg (191 lb 9.6 oz) 08/17/2024 8:59 A M EDT Height 175.3 cm (5' 9 ) 08/17/2024 8:59 AM EDT Body Mass Index 28.29 08/17/2024 8:59 AM EDT Plan of Treatment Upcoming Encounters Date Type Department Care Team (Late st Contact Info) Description 09/04/2024 10:30 AM EDT Clinical Support [facility] [address] [place] [address] [phone] 10/10/2024 10:00 AM EDT Office Visit [facility] [address] [place] [address] [phone] Sherri Selby MD [address] [place] [address] [phone] Health Maintenance Due Date Last Done Comments CT Colonography 1960 Colonoscopy 1960 FIT DNA/Cologuard 1960 Sigmoidoscopy 1960 Pneumococcal Vaccine: 50+ Years (1 of 2 - PCV) 1979 Diabetes: Hemoglobin A1C 11/15/2024 024, 08/10/2022, 10/28/2021 Dental Oral Exam 12/25/2024 06/26/2024, 01/2023, 12/24/2021, Additional history exists Dental Prophylaxis 12/25/2024 06/26/2024, 0 10/18/2023, 03/24/2023, Additional history exists Colorectal Cancer Screening 03/07/2025 FIT 03/07/2025 03/07/2024, 06/05/2023 FOBT 03/07/2025 03/07/2024, 06/05/2023 Dental X-Ray: Bitewings 06/27/2025 06/26/19 25, 03/24/2023, 12/24/2021, Additional history exists Alcohol/Substance Use Screening 08/17/2025 08/17/2024 Depression Screening 08/17/2025 08/17/2024, 08/18/19 SDOH Screening 08/17/2025 08/17/2024 Tobacco Screening 08/17/2025 08/17/2024 Dental X-Ray: Full Mouth 03/25/2026 023, 05/02/2019, [...] Completed 03/02/2024, , 06/02/2021, Additional history exists Hepatitis B Vaccines Completed 08/17/2024, 01/10/2024, 12/07/2023 HIB Vaccines Aged Out No longer eligi [...] examination Dental calculus Dental plaque Dental caries LIPID PANEL, STANDARD Routine 03/19/2024 11:05 AM [...] Recently Relevant to Health Maintenance Results * (ABNORMAL) Lipid Panel, Standard (03/19/2024 11:05 AM EST) Triglycerides 137 <150 mg/dL [facility] Comment:Desirable Triglyceri de: less than 150 mg/dLBorderline High Triglyceride 150-199 mg/dLHigh Triglyceride: 200-499 mg/dLVery High Triglyceride: greater than or equal to 5OO mg/dL Cholesterol 143 <200 mg/dL [facility] Comment:Desirable Cholestero l: less than 200 mg/dLBorderline High Cholesterol: 200-239 mg/dLHigh Cholesterol: greater than 239 mg/dL LDL Cholesterol Calculated 76 <100 mg/dL [facility] Comment:Desirable LDL: less than 100 mg/dLNear Optimal/Above Optimal LDL: 110- 129 mg/dLBorderline High LDL: 130-159 mg/dLHigh LDL: 160-189 mg/dLVery High LDL: greater than or equal to 190 mg/dL HDL Cholesterol 40(L) >40 mg/dL [facility] Comment:Desirable HDL: great er than 40 mg/dL Note: This HDL assay may give artificially low results in patients with liver disease. Blood Venous blood specimen / Unknown 03/19/2024 11:05 AM EST 03/19/2024 11:05 AM EST Sherri Navarro MD LAB BLOOD ORDERAB LES Final Result Performing Organization Address [facility] Co de Phone Number [facility] [address] [place] [address] [phone] * Fecal Globin by Immunochemistry (03/07/2024 12:00 AM EDT) Fecal Globin By Immunochemistry SEE NOTE [employer] [facility] [employer] Comment: ??FECAL GLOBIN BY IMMUNOCHEMISTRY ?Micro Number: ?[id number] ??Test Status: ? Final ??Specimen Source: ?? Insure (tm) fobt test card ??Specimen Quality: ??Adequate ??Fecal Globin: ?Not Detected 03/07/2024 03/15/2024 5:1 8 AM EDT Narrative [facility] - 03/15/2024 4:25 PM EDT FASTING: UNKNOWN [facility] External Provider LAB BODY FLUIDS AND STOOLS ORDERABLES Final Result Performing Organization Address City/[facility] Co de Phone Number [facility] [address], [place] [address] [facility] [address] [place] [address] * Hepatitis C Antibody with Reflex to HCV, RNA, Quantitative, Real-Time PCR (11/16/2023 12:08 PM EDT) Hepatitis C Antibody Nonreactive Nonreactive [facility] Comment:Antibodies to HCV no t detected; does not exclude early acuteHCV infection. Blood Venous blood specimen / Unknown 11/16/2023 12:08 PM EDT 11/16/2023 12:08 PM EDT us Sherri Navarro MD LAB BLOOD ORDERAB LES Final Result Performing Organization Address [facility]/ZIP Co de Phone Number [facility] [address] [place] [address] [phone] * HIV-1/2 Antigen and Antibodies, Fourth Generation, with Reflexes (11/16/2023 12:08 PM EDT) Pathologist [facility] HIV AB/AG Nonreactive Nonreactive [facility] Comment:HIV-1 p24 Ag and/or HIV-1/HIV-2 Ab not detected.A test result that is nonreactive does not exclude thepossibility of exposure to or infection with HIV-1 and/orHIV-2. Nonreactive results in this assay for individualswith prior exposure to HIV-1 and/or HIV-2 may be due toantigen and antibody levels that are below the limit ofdetection of this assay.The [employer] HIV Ag/Ab Combo assay result andsupplemental assay results should be interpreted inconjunction with the patient's clinical presentation,history and other laboratory results. If the results areinconsistent with clinical evidence, additional testing issuggested to confirm the result. Blood Venous blood specimen / Unknown 11/16/2023 12:08 PM EDT 11/16/2023 12:08 PM EDT us Sherri Navarro MD LAB BLOOD ORDERAB LES Final Result Performing Organization Address City/[facility]/ZIP Co de Phone Number [facility] [address] [place] [address] [phone] * Hemoglobin A1c (11/16/2023 12:08 PM EDT) Pathologist [facility] Hemoglobin A1c 5.8 <6.0 % [facility] Comment:Hemoglobin A1C Refer ence Range Adults: 4.8 - 6.0 % Non diabetic: < 6.0 % Goal: < 7.0 %Additional Action Suggested: > 8.0 %Note: Hemoglobin A1c results are invalid for patients with abnormal amounts of HbF. Blood transfusions may impact the HbA1c concentration in the patient sample. Estimated Average Glucose 120 mg/dL [facility] Comment:eAG = Estimated ave rage glucose which is %A1C expressed asaverage glucose, using the formula of the F6R-TrezkqwWwnsele Glucose study (ADAG), Diabetes Care, Vol.31,#8,2007 Blood Venous blood specimen / Unknown 11/16/2023 12:08 PM EDT 11/16/2023 12:08 PM EDT us Sherri Navarro MD LAB BLOOD ORDERAB LES Final Result [facility] [address] [place] [address] [phone] from Last 3 Months or Most Recently Relevant to Health Maintenance Insurance [facility] C[facility] Care Teams Space And Storage Clerk Relationship Specialty Start Date End Date Sherri Selby MD [address] [place] [address] PCP - General Internal Medicine 02/02/23
--- OUTSIDE RECORDS SUMMARY | 2024-08-30 08:25 | XMS_ITS | Encounter Summary ---
Author Organization [facility] Address [address] [place] [address] 7 [place] [address] Care Team Providers Care Clinical Specialist Name Role Phone Funmi Easton MD Primary Care Provider Lorenza Stroud SANITATION MANAGER Primary Care Provider [phone] Sherri Selby MD Primary Care Pro vider Encounter Details Date Type Department Care Team (Latest Contact Info) Description 05/02/2019 Abstract [facility] CONVERSION[facility] Dental, Provider, DDS Social History Tobacco [...] Description 09/04/2024 10:30 AM EDT Clinical Support [facility] MEDICINE [address] [place] [phone] 10/10/2024 10:00 AM EDT Office Visit [facility] MEDICINE [address] [place] [phone] Sherri Selby MD [address] [place] [phone] documented as of this encounter Visit Diagnoses Not on filedocumented in this encounter Care Teams Clinical Specialist Relationship Specialty Start Date End Date Funmi Easton MD PCP - General Family Medicine 03/20/19 04/04/22 Lorenza Hodge FNP PCP - General Family Medicine 04/05/22 02/01/23 Sherri Selby MD [address] [place] [phone] PCP - General Internal Medicine 02/02/23 documented as of this encounter
--- OUTSIDE RECORDS SUMMARY | 2024-08-30 08:25 | XMS_ITS | Encounter Summary ---
Author Organization [employer] Address [address] [facility] [address] [place] [address] Care Team Providers Care [employer] Worker Name Role Phone Sherri Selby MD Primary Care Pro vider Reason for Visit * Reason Onset Date Comments Results 05/05/2023 Encounter Details Date Type Department Care Team ([facility] st Contact Info) Description 05/05/2023 Telephone [facility] MEDICINE [address] [place], [place] [phone] Sherri Selby MD [address] [place] [address] Results Social History Tobacco Use Types Packs/Day [...] results of spine. Please contact pt at [phone] documented in this encounter Plan of Treatment Upcoming Encounters Date Type Department Care Team (Late st Contact Info) Description 09/04/2024 10:30 AM EDT Clinical Support [facility] [address] [place] [phone] 10/10/2024 10:00 AM EDT Office Visit [facility] [address] [place] [phone] Sherri Selby MD [address] [place] [phone] documented as of this encounter Visit Diagnoses Not on filedocumented in this encounter Additional Health Concerns Assessment Noted Time PHQ-9 Depression Total Score: 16 023 9:09 AM EDT documented as of this encounter Care Teams [employer] Worker Relationship Specialty Start Date End Date Sherri Selby MD [address] [place] [phone] PCP - General Internal Medicine 02/02/23 documented as of this encounter
== END 2024-08-30 08:11 | disposition home or self-care (01) ==
LOC: HO.US 08:10
PROVIDERS: PCP Student in an Organized Health Care Education/Training Program; Visit Provider Student in an Organized Health Care Education/Training Program
DX: R74.01 Elevation of levels of liver transaminase levels (principal)
CPT/HCPCS: 76700

== ENCOUNTER → 2024-08-30 08:12 | Outpatient (BNV) | payer OTHER, SELFPAY | PROVIDERS: PCP Student in an Organized Health Care Education/Training Program; Visit Provider Radiology Diagnostic Radiology | DX: R74.01 Elevation of levels of liver transaminase levels (principal) | CPT/HCPCS: 76700 ==

== ENCOUNTER 2024-09-12 07:36 | Outpatient (REF) | payer OTHER, SELFPAY ==
--- OUTSIDE RECORDS SUMMARY | 2024-09-12 07:39 | XMS_ITS | Encounter Summary ---
Author Organization [employer] Address [address] [facility] [address]t [place] [address] Care Team Providers Care [employer] Tile Partition Erector Name Role Phone Lorenza Hodge GRAPPLER Primary Care Provider [phone]- [phone] Sherri Selby MD Primary Care Pro vider Reason for Visit * Reason Onset Date Comments triage 06/11/2022 Encounter Details Date Type Department Care Team (Late st Contact Info) Description 06/11/2022 Telephone [facility] [address] [place] [phone] Lorenza Hodge FNP [address] [place] [address] Dept [place] [address] triage Social History Tobacco Use Types Packs/Day [...] Voice mail to call back [facility] nurses at [phone] or if emergent care needed to go [...] Care Team (Late st Contact Info) Description 10/10/2024 10:00 AM EDT Office Visit [facility] [address] [place] [phone] Sherri Selby MD [address] [place] [phone] documented as of this encounter Visit Diagnoses Not on filedocumented in this encounter Care Teams Hollow Tile Partition Erector Relationship Specialty Start Date End Date Lorenza Hodge FNP PCP - General Family Medicine 04/05/22 02/01/23 Sherri Selby MD [address] [place] [address] [phone] PCP - General Internal Medicine 02/02/23 documented as of this encounter
--- OUTSIDE RECORDS SUMMARY | 2024-09-12 07:39 | XMS_ITS | Clinical Summary ---
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 08/05/19 24 Active Multiple Vitamins-Solar Business Developer als (CertaVite/Ant ioxidants) tablet Take 1 tablet [...] NEEDED ANXIETY 08/26/19 24 Active sodium chloride (Ashe) 0.65 % nasal spray Administer 1 spray [...] hemorrhoids and left sided diverticulosis Atherosclerosis of upper sioux co ronary artery of upper sioux heart with stable angina pectoris 08/10/2022 Overview (11/24/2022): Cardiac hx Chest pain continued SOB Leg swelling Assessment & Plan (11/24/2022 6:12 PM EDT): Try and locate Cards notes Check BNP F/u PRN Gastroesophageal reflux disease 06/14/2022 Migraine without aura and wi thout status migrainosus, not intractable 06/07/2022 Overview (02/02/2023): Care Managed by [facility] - Pt has chronic left holiness migraine. Injury to L holiness about 3 years ago. 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 and passing out Care Managed by [facility] Last appt 04/28/22 Treating Keppra 250mg [...] to locate records Gave pt card with [facility] Fax number and have all specialists fax [...] out to [facility] team as needed Rule Out Diagnoses n/a [...] Encounters Date Type Department Care Team Description 09/04/2024 10:30 AM EDT Clinical Support [address] [address] April Bello RN Poor memory 09/04/2024 Travel 09/01/[address] [address] Sherri Selby MD Flank pain 08/17/2024 9:00 AM EDT Office Visit [address] [address] Sherri Selby MD Transaminitis (Primary Dx); Encounter for immunization; Dietary counseling; Exercise counseling; Severe episode of recurrent major depressive disorder, with psychotic features (CMS/HCC); 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); 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 (CMS/HCC); Mixed hyperlipidemia; Health care maintenance; Poor memory; Carotid stenosis, asymptomatic, bilateral 08/17/2024 Travel 08/14/2024 Orders Only [facility] MEDICINE [address] [place] [phone] Sherri Selby MD 08/14/2024 Orders Only [facility] [address] [place], [place] [phone] Aditi Tabor MD 08/13/[address] [address] Sherri Selby MD Prior Auth Prescription (Lidocaine patches) 08/13/[address] [phone] Sherri Selby MD 08/13/2024 Refill [facility] MED & PEDS [address] [place], [place] [phone] Mayelin Robin MD 08/06/2024 Telephone [facility] MEDICINE [address] [place] [address] Sherri Selby MD chart prep 06/28/2024 Refill [facility] [address] [place], [place] [phone] Sherri Selby MD TIA (transient ischemic attack) 06/26/2024 1:00 PM EST Office Visit [facility] ADULT DENTAL [address] [place] [address] Divina Vickers Encounter for dental examination (Primary Dx); Dental calculus; Dental plaque; Dental caries from Last 3 Months Immunizations Name Administration [...] Description 10/10/2024 10:00 AM EDT Office Visit [facility] MEDICINE [address] [place] [address] Sherri Selby MD [address] [place], [place] [phone] Health Maintenance Due Date Last Done Comments [...] Name Priority Date/Time Associated Diagnosis Comments US ABDOMEN COMPLETE Routine 08/30/2024 8 :26 AM EDT Transaminitis COMPREHENSIVE PERIODONTAL EVALUATION - NEW OR ESTABLISHED [...] Recently Relevant to Health Maintenance Results * US Abdomen Complete (08/30/2024 8:26 AM EDT) Anatomical Region Laterality Modality Abdomen Ultrasound 08/30/2024 8:26 AM EDT Narrative 08/30/2024 9:29 AM EDT ? [facility] ?[address] ?[place] [address] ? Ultrasound Report ? Signed ? Patient: Vincent Banks,Shemar ?MR ?? #: [id number] ? : 1960 ?Acct:[id number] ? Age/Sex: 64 / M ?ADM Date: 04/17/25 ? Loc: HO.US ? Attending Dr: Sherri Navarro MD ? Ordering Physician: Sherri Selby MD ?? Date of Service: 08/30/24 ?? Procedure(s): US abdomen complete ?? Accession Number(s): [id number] ? cc: Sherri Selby MD ? EXAMINATION: ??US ABDOMEN ? HISTORY: pt with ongoing elevated liver enzymes needs to eval liver ?? thanks ? TECHNIQUE: Real-time grayscale ultrasound imaging of the abdomen was ?? performed and images were reviewed. ? COMPARISON: Comparison is made with the prior examination dated ?? 09/15/2022. ? FINDINGS: ?? Liver: ??The right lobe of the liver measures 12.8 cm in size. The left ?? lobe of the liver measures 8.8 cm in size. The liver demonstrates ?? normal homogeneous echotexture. ??No focal mass or intrahepatic biliary ?? ductal dilatation is identified. ??There is normal hepatopedal flow in ?? the portal vein. ? Gallbladder and biliary tree: The gallbladder is unremarkable, without ?? evidence of calculi, wall thickening, or pericholecystic fluid. ??There ?? is no sonographic Carnes sign. ??The common bile duct is normal in ?? caliber measuring 2 mm. ? Kidneys: ??Right kidney measures 11.8 cm in length. The left kidney ?? measures 12.4 cm in length. There is a prominent column of Charan on ?? the left. ??The kidneys are otherwise unremarkable, without evidence of ?? masses, hydronephrosis, or calculi. ? Pancreas: The pancreas is obscured by bowel gas. ? Spleen: The spleen is normal in size and contour, measuring 10.2 cm in ?? length. ? Abdominal aorta and inferior vena cava: The visualized portions of the ?? abdominal aorta and inferior vena cava are normal in caliber. ? There is no free fluid in the abdomen. ? US/US abdomen complete ?? IMPRESSION: ? The pancreas is obscured by bowel gas. Otherwise unremarkable abdominal ?? ultrasound. ? Electronically signed by: ??Carlton Raya MD ??08/30/2024 09:27 AM EDT ?? RP ? Dictated By: ?Carlton Raya MD ? Signed By: ?<Electronically signed by Carlton Raya MD in OV> ?08/30/24 0927 ? DD/ 0826 ? TD/TT: 08/30/24 0841 ? Chair Springer: ? Procedure Note Brooke, Image - 08/30/[address] [address] Ultrasound Report Signed Patient: Inderjit Stoner [facility] #: [id number] : 1960cct:[id number] Age/Sex: 64 / MADM Date: 08/30/24 Loc: HO.US Attending Dr: Sherri Navarro MD Ordering Physician: Sherri Selby MD Date of Service: 08/30/24 Procedure(s): US abdomen complete Accession Number(s): [id number] cc: Sherri Sleby MD EXAMINATION: US ABDOMEN HISTORY: pt with ongoing elevated liver enzymes needs to eval liver thanks TECHNIQUE: Real-time grayscale ultrasound imaging of the abdomen was performed and images were reviewed. COMPARISON: Comparison is made with the prior examination dated 09/15/2022. FINDINGS: Liver: The right lobe of the liver measures 12.8 cm in size. The left lobe of the liver measures 8.8 cm in size. The liver demonstrates normal homogeneous echotexture. No focal mass or intrahepatic biliary ductal dilatation is identified. There is normal hepatopedal flow in the portal vein. Gallbladder and biliary tree: The gallbladder is unremarkable, without evidence of calculi, wall thickening, or pericholecystic fluid. There is no sonographic Carnes sign. The common bile duct is normal in caliber measuring 2 mm. Kidneys: Right kidney measures 11.8 cm in length. The left kidney measures 12.4 cm in length. There is a prominent column of Charan on the left. The kidneys are otherwise unremarkable, without evidence of masses, hydronephrosis, or calculi. Pancreas: The pancreas is obscured by bowel gas. Spleen: The spleen is normal in size and contour, measuring 10.2 cm in length. Abdominal aorta and inferior vena cava: The visualized portions of the abdominal aorta and inferior vena cava are normal in caliber. There is no free fluid in the abdomen. US/US abdomen complete IMPRESSION: The pancreas is obscured by bowel gas. Otherwise unremarkable abdominal ultrasound. Electronically signed by: Carlton Raya MD 08/30/2024 09:27 AM EDT Dictated By: Carlton Raya MD Signed By: <Electronically signed by Carlton Raya MD in OV> 08/30/24926 DD/ 5 TD/TT: 08/30/24840 Chair Springer: us Sherri Navarro MD IMG US PROCEDURES Final Result * (ABNORMAL) Lipid Panel, Standard (03/19/2024 11:05 AM EST) Triglycerides 137 <150 mg/dL [facility] Comment:Desirable Triglyceri de: less than 150 mg/dLBorderline High Triglyceride 150-199 mg/dLHigh Triglyceride: 200-499 mg/dLVery High Triglyceride: greater than or equal to 5OO mg/dL Cholesterol 143 <200 mg/dL [facility] Comment:Desirable Cholestero l: less than 200 mg/dLBorderline High Cholesterol: 200-239 mg/dLHigh Cholesterol: greater than 239 mg/dL LDL Cholesterol Calculated 76 <100 mg/dL [facility] Comment:Desirable LDL: less than 100 mg/dLNear Optimal/Above Optimal LDL: 110- 129 mg/dLBorderline High LDL: 130-159 mg/dLHigh LDL: 160-189 mg/dLVery High LDL: greater than or equal to 190 mg/dL HDL Cholesterol 40(L) >40 mg/dL [facility] Comment:Desirable HDL: great er than 40 mg/dL Note: This HDL assay may give artificially low results in patients with liver disease. Blood Venous blood specimen / Unknown 03/19/2024 11:05 AM EST 03/19/2024 11:05 AM EST us Sherri Navarro MD LAB BLOOD ORDERAB LES Final Result [facility] [address] [place] [address] [phone] * Fecal Globin by Immunochemistry (03/07/2024 12:00 AM EDT) Fecal Globin By Immunochemistry SEE NOTE [employer] [facility] Comment: ??FECAL GLOBIN BY IMMUNOCHEMISTRY ?Micro Number: ?[id number] ??Test Status: ? Final ??Specimen Source: ?? Insure (tm) fobt test card ??Specimen Quality: ??Adequate ??Fecal Globin: ?Not Detected 03/07/2024 03/15/2024 5:1 8 AM EDT Narrative [facility] - 03/15/2024 4:25 PM EDT FASTING: UNKNOWN [facility] External Provider LAB BODY FLUIDS AND STOOLS ORDERABLES Final Result Performing Organization Address City/[facility] Co de Phone Number [employer] [address], [facility] [place] [address] [employer] [facility] [address] [place] [address] * Hepatitis C Antibody with Reflex to HCV, RNA, Quantitative, Real-Time PCR (11/16/2023 12:08 PM EDT) Pathologist [facility] Hepatitis C Antibody Nonreactive Nonreactive [facility] Comment:Antibodies to HCV no t detected; does not exclude early acuteHCV infection. Blood Venous blood specimen / Unknown 11/16/2023 12:08 PM EDT 11/16/2023 12:08 PM EDT Sherri Navarro MD LAB BLOOD ORDERAB LES Final Result Performing Organization Address City/[facility]/ZIP Co de Phone Number [facility] [address] [place] [phone] * HIV-1/2 Antigen and Antibodies, Fourth Generation, with Reflexes (11/16/2023 12:08 PM EDT) HIV AB/AG Nonreactive Nonreactive [facility] Comment:HIV-1 p24 Ag and/or HIV-1/HIV-2 Ab not detected.A test result that is nonreactive does not exclude thepossibility of exposure to or infection with HIV-1 and/orHIV-2. Nonreactive results in this assay for individualswith prior exposure to HIV-1 and/or HIV-2 may be due toantigen and antibody levels that are below the limit ofdetection of this assay.The [employer] HIV Ag/Ab Combo assay result andsupplemental assay results should be interpreted inconjunction with the patient's clinical presentation,history and other laboratory results. If the results areinconsistent with clinical evidence, additional testing issuggested to confirm the result. Blood Venous blood specimen / Unknown 11/16/2023 12:08 PM EDT 11/16/2023 12:08 PM EDT Sherri Navarro MD LAB BLOOD ORDERAB LES Final Result Performing Organization Address [facility]/ZIP Co de Phone Number [facility] [address] [place] [phone] * Hemoglobin A1c (11/16/2023 12:08 PM EDT) Hemoglobin A1c 5.8 <6.0 % [facility] Comment:Hemoglobin A1C Refer ence Range Adults: 4.8 - 6.0 % Non diabetic: < 6.0 % Goal: < 7.0 %Additional Action Suggested: > 8.0 %Note: Hemoglobin A1c results are invalid for patients with abnormal amounts of HbF. Blood transfusions may impact the HbA1c concentration in the patient sample. Estimated Average Glucose 120 mg/dL [facility] Comment:eAG = Estimated ave rage glucose which is %A1C expressed asaverage glucose, using the formula of the P5I-SdovqbcNcjibtw Glucose study (ADAG), Diabetes Care, Vol.31,#8,Dec. 2007 Blood Venous blood specimen / Unknown 11/16/2023 12:08 PM EDT 11/16/2023 12:08 PM EDT Sherri Navarro MD LAB BLOOD ORDERAB LES Final Result Performing Organization Address [facility]/ZIP Co de Phone Number [facility] [address] [place] [phone] from Last 3 Months or Most Recently Relevant to Health Maintenance Insurance [employer] < 65 [place] [id number] Care Teams Security Director Relationship Specialty Start Date End Date Sherri Selby MD [address] [place] [address] PCP - General Internal Medicine 02/02/23
--- OUTSIDE RECORDS SUMMARY | 2024-09-12 07:39 | XMS_ITS | Encounter Summary ---
Author Organization [employer] Address [address] [facility] 7 [place] [address] Care Team Providers Care Exhibit Carpenter Name Role Phone Sherri Selby MD Primary Care Pro vider Reason for Visit * Reason Onset Date Comments Results 05/05/2023 Encounter Details Date Type Department Care Team ([facility] st Contact Info) Description 05/05/2023 Telephone [facility] [address] [place], [place] [phone] Sherri Selyb MD [address] [place] [address] Results Social History Tobacco Use Types Packs/Day [...] results of spine. Please contact pt at [phone] documented in this encounter Plan of Treatment Upcoming Encounters Date Type Department Care Team (Late st Contact Info) Description 10/10/2024 10:00 AM EDT Office Visit [facility] MED[facility] [address] [place] [phone] Sherri Selby MD [address] [place] [address] [phone] documented as of this encounter Visit Diagnoses Not on filedocumented in this encounter Additional Health Concerns Assessment Noted Time PHQ-9 Depression Total Score: 16 023 9:09 AM EDT documented as of this encounter Care Teams Exhibit Carpenter Relationship Specialty Start Date End Date Sherri Selby MD [address] [place] [phone] PCP - General Internal Medicine 02/02/23 documented as of this encounter
--- OUTSIDE RECORDS SUMMARY | 2024-09-12 07:39 | XMS_ITS | Clinical Summary ---
Author Organization [facility] Address [address] [place] [address] Phone Care Team Providers Care Design Checker Name Role Phone Unavailable Primary Care Provider [...] 2010 Zoster Vaccines (1 of 2) 2010 COVID-19 Vaccine ( - 2023-2 5 season) [...]
--- OUTSIDE RECORDS SUMMARY | 2024-09-12 07:39 | XMS_ITS | Encounter Summary ---
Author Organization [employer] [facility] Address [address] [place] [address] 7 [place] [address] Care Team Providers Care Fresh Work Wrapper Layer Name Role Phone Lorenza Hodge [facility] Primary Care Provider [phone] Sherri Selby MD Primary Care Pro vider Encounter Details Date Type Department Care Team (Late st Contact Info) Description 11/25/2022 Orders Only [facility] MEDICINE [address] [place] [phone] Lorenza Hodge [address] [place] [address] Social History Tobacco Use Types Packs/Day Years [...] Description 10/10/2024 10:00 AM EDT Office Visit [facility] MEDICINE [address] [place] [phone] Sherri Selby MD [address] [place] [phone] documented as of this encounter Procedures Procedure Name Priority Date/Time Associated Diagnosis Comments US RENAL BI Routine 12/06/2022 1:54 PM EDT documented in this encounter Results * US RENAL BI (12/06/2022 1:54 PM EDT) Anatomical Region Laterality Modality Abdomen Ultrasound 12/06/2022 1:54 PM EDT Narrative 12/09/2022 6:44 PM EDT ? [facility] ?[address] ?[place] [address] ? Ultrasound Report ? Signed ? Patient: Inderjit Stoner ?MR ?? #: [id number] ? : 1960 ?Acct:[id number] ? Age/Sex: 62 / M ?ADM Date: 12/06/22 ? Loc: HO.US ? Attending Dr: Lorenza OCONNELL ? Ordering Physician: Lorenza Hodge ?? Date of Service: 12/06/22 ?? Procedure(s): US renal BI ?? Accession Number(s): [id number] ? cc: Lorenza Hodge ? EXAMINATION: ?? [...] 1841 ? DD/ 1354 ? TD/TT: ? Burn [facility] Nurse: ? Procedure Note Donartemioter, Image - 12/09/2022 [place] [address] Ultrasound Report Signed Patient: Inderjit Stoner [facility] #: [id number] : 1Acct:[id number] Age/Sex: 62 / MADM Date: 12/06/22 Loc: HO.US Attending Dr: Lorenza OCONNELL Ordering Physician: Lorenza Hodge Date of Service: 12/06/22 Procedure(s): US renal BI Accession Number(s): [id number] cc: Lorenza Hodge EXAMINATION: US RETROPERITONEAL LIMITED [...] in OV> 12/09/22 1841 DD/ 1354 TD/TT: Burn Center Nurse: us Lorenza Hodge BUFFERER IMG US PROCEDURES Edited R esult - Final documented in this encounter Visit Diagnoses Not on filedocumented in this encounter Additional Health Concerns Assessment Noted Time PHQ-9 Depression Total Score: 16 023 9:09 AM EDT documented as of this encounter Care Teams Fresh Work Wrapper Layer Relationship Specialty Start Date End Date Lorenza Hodge FNP PCP - General Family Medicine 04/05/22 02/01/23 Sherri Selby MD [address] [place] [phone] PCP - General Internal Medicine 02/02/23 documented as of this encounter
--- OUTSIDE RECORDS SUMMARY | 2024-09-12 07:39 | XMS_ITS | Encounter Summary ---
Author Organization [employer] [facility] Address [address] [facility] 7 [place] [address] Care Team Providers Care Animal Pathology Teacher Name Role Phone Funmi Easton MD Primary Care Provider Lorenza Stroud Primary Care Provider [phone]- [phone] Sherri Selby MD Primary Care Pro vider Encounter Details Date Type Department Care Team (Latest Contact Info) Description 03/23/2021 Abstract [facility] CONVERSIONS Dental, Provider, DDS Social History Tobacco [...] Description 10/10/2024 10:00 AM EDT Office Visit [facility] MEDIC[facility] [address] [place] [address] Sherri Selby MD [address] [place], [place] [phone] documented as of this encounter Visit Diagnoses Not on filedocumented in this encounter Care Teams Animal Pathology Teacher Relationship Specialty Start Date End Date Funmi Easton MD PCP - General Family Medicine 03/20/19 04/04/22 Lorenza Hodge FNP PCP - General Family Medicine 04/05/22 02/01/23 Sherri Selby MD [address] [place] [address] PCP - General Internal Medicine 02/02/23 documented as of this encounter
--- OUTSIDE RECORDS SUMMARY | 2024-09-12 07:39 | XMS_ITS | Encounter Summary ---
Author Organization [employer] [facility] Address [address] [place] [address] 7 [place] [address] Care Team Providers Care Estate Planning Director Name Role Phone Funmi Easton MD Primary Care Provider Lorenza Stroud Primary Care Provider +1- [phone] Sherri Selby MD Primary Care Pro vider Encounter Details Date Type Department Care Team (Latest Contact Info) Description 05/02/2019 Abstract [facility] CONVERSIONS Dental, Provider, [...] Description 10/10/2024 10:00 AM EDT Office Visit [facility] MEDICINE [address] [place] [address] Sherri Selby MD [address] [place] [address] documented as of this encounter Visit Diagnoses Not on filedocumented in this encounter Care Teams Estate Planning Director Relationship Specialty Start Date End Date Funmi Easton MD PCP - General Family Medicine 03/20/19 04/04/22 Lorenza Hodge FNP PCP - General Family Medicine 04/05/22 02/01/23 Sherri Selby MD [address] [place] [address] PCP - General Internal Medicine 02/02/23 documented as of this encounter
--- OUTSIDE RECORDS SUMMARY | 2024-09-12 07:39 | XMS_ITS | Encounter Summary ---
Author Organization [facility] Address [address] [facility] 7 [place] [address] Care Team Providers Care Field Handyman Name Role Phone Funmi Easton MD Primary Care Provider Lorenza Stroud Primary Care Provider +1- [phone] Sherri Selby MD Primary Care Pro vider Encounter Details Date Type Department Care Team (Latest Contact Info) Description 12/24/2021 Abstract [facility] CONVERSIONS Dental, Provider, DDS Social [...] Description 10/10/2024 10:00 AM EDT Office Visit [facility] MEDICINE [address] [place] [address] Sherri Selby MD [address] [place], [place] [phone] documented as of this encounter Visit Diagnoses Not on filedocumented in this encounter Care Teams Field Handyman Relationship Specialty Start Date End Date Funmi Easton MD PCP - General Family Medicine 03/20/19 04/04/22 Lorenza Hodge FNP PCP - General Family Medicine 04/05/22 02/01/23 Sherri Selby MD [address] [place] [address] PCP - General Internal Medicine 02/02/23 documented as of this encounter
--- OUTSIDE RECORDS SUMMARY | 2024-09-12 07:39 | XMS_ITS | Encounter Summary ---
Author Organization [employer] Address [address] [facility] 7t [place] [address] Care Team Providers Care Video Game Designer Name Role Phone Sherri Selby MD Primary Care Pro vider Reason for Visit * Reason Comments Med Refill Encounter Details Date Type Department Care Team ([facility] st Contact Info) Description 09/01/2024 Refill [facility] MEDICINE [address] [place] [address] Sherri Selby MD [address] [place] [address] Flank pain Social History Tobacco Use Types Packs/Day Years [...] 10/10/2024 10:00 AM EDT Office Visit [facility] MEDICINE [address] [place] [phone] Sherri Selby MD [address] [place] [phone] documented as of this encounter Visit Diagnoses Diagnosis Flank pain Abdominal pain, unspecified site documented in this encounter Additional Health Concerns Assessment Noted Time PHQ-9 Depression Total Score: 7 08/18/19 25 9:01 AM EDT documented as of this encounter Care Teams Video Game Designer Relationship Specialty Start Date End Date Sherri Selby MD [address] [place] [address] PCP - General Internal Medicine 02/02/23 documented as of this encounter
[2024-09-12 08:26] LABS: Estimated Average Glucose 120 mg/dL; Hemoglobin A1C 147.1736 umol/L; Hemoglobin A1c % 5.8 % (<6.0); Total Hemoglobin (HGBA1C) 3715.6044 umol/L
[2024-09-12 08:41] LABS: Alanine Aminotransferase 46 U/L (0-40); Albumin Level 4.2 g/dL (3.5-5.0); Alkaline Phosphatase 91 U/L (39-117); Anion Gap 11 (12-20); Aspartate Amino Transferase 23 U/L (5-37); Bilirubin Total 0.9 mg/dL (0.0-1.0); Blood Urea Nitrogen 15 mg/dL (9-16); Calcium 9.4 mg/dL (8.4-10.2); Carbon Dioxide 26 mmol/L (22-29); Chloride 109 mmol/L (96-108); Cholesterol 150 mg/dL (<200); Estimated Glomerular Filt Rate > 60; Glucose Random 98 mg/dL (60-115); HDL Cholesterol 43 mg/dL (>40); LDL Cholesterol Calculated 80 mg/dL (<100); Potassium 4.3 mmol/L (3.3-5.1); Sodium 142 mmol/L (135-145); Triglycerides 137 mg/dL (<150)
[2024-09-12 16:35] LABS: Anion Gap 11 (12-20); Blood Urea Nitrogen 17 mg/dL (9-16); Calcium 9.5 mg/dL (8.4-10.2); Carbon Dioxide 26 mmol/L (22-29); Chloride 109 mmol/L (96-108); Estimated Glomerular Filt Rate > 60; Glucose Random 86 mg/dL (60-115); Potassium 4.2 mmol/L (3.3-5.1); Sodium 142 mmol/L (135-145)
[2024-09-12 16:57] LABS: Prostate Specific Antigen 2.08 ng/mL (<0.05-4.0)
== END 2024-09-12 07:37 | disposition home or self-care (01) ==
LOC: HO.LAB 07:36
PROVIDERS: PCP Student in an Organized Health Care Education/Training Program; Visit Provider Nurse Practitioner Family
DX: R74.01 Elevation of levels of liver transaminase levels (principal); N40.0 Benign prostatic hyperplasia without lower urinary tract symptoms; I25.10 Atherosclerotic heart disease of native coronary artery without angina pectoris; Z12.5 Encounter for screening for malignant neoplasm of prostate; Z13.1 Encounter for screening for diabetes mellitus
CPT/HCPCS: 36415; 80048; 80053; 80061; 83036; 84153

== ENCOUNTER 2024-09-17 13:50 | Outpatient (AMB) | payer OTHER, SELFPAY ==
--- NOTE | 2024-09-17 13:54 | A.OFFVIS_ITS ---
Intake Visit Reasons: 6m/PSA(pending) Intake Note: Patient is present for a 6 month follow up/PSA PSA:2.08 Urology Medication:TERAZOSIN, FINASTERIDE Antibiotic Allergy:NONE Blood Thinner:ASPIRIN PVR:0ml Dental Laboratory Technology Teacher Required: Yes Dental Laboratory Technology Teacher Name: [id number] Allergies No Known Allergies Allergy (Verified 09/17/24 14:37) Medication List - Last Reconciled 09/17/24 by ANISH Jain- aspirin 81 mg PO QAM atorvastatin 80 mg PO BEDTIME dicyclomine 10 mg PO BID PRN docusate sodium 100 mg PO BEDTIME famotidine 40 mg PO BEDTIME finasteride 5 mg PO DAILY 90 days fluoxetine 80 mg PO DAILY icosapent ethyl (Vascepa) grams PO levetiracetam 500 mg PO BID linaclotide (Linzess) 290 mcg PO QAM bztukparrbzd-wqna-czfon acid 18-400 mg-mcg (Certavite-Antioxidant) tabs PO nitroglycerin 0 mg sublingual primidone 50 mg PO BEDTIME terazosin 5 mg PO BEDTIME 90 days topiramate XR 25 mg PO DAILY HPI Comments Details: Inderjit is a pleasant 64-year-old / Setswana speaking male patient of Dr. Christiansen. He has a PMH of CAD. He presents to the office today for follow-up of his lower urinary tract symptoms. In discussion with the patient today he reports noting intermittent episodes of urinary hesitancy as well as dysuria however describes these episodes as intermittent and infrequent. He otherwise denies any bothersome urinary issues. He reports compliance with finasteride and terazosin as prescribed. He otherwise denies urinary urgency, urinary frequency, incontinence, hematuria, dysuria, foul smelling urine, changes to urinary stream, flank pain, fever, and or chills. Previous workup has included a retroperitoneal ultrasound 10/05 noting mild diffuse bladder wall thickening. No stone or masses seen. Bilateral ureteral jets are demonstrated. Pre void bladder volume is approximately 210 mL. Postvoid bladder volume is 2 mL. The kidneys are normal with no calculi hydronephrosis or lesions noted. He had previously tried Flomax with no improvement. In office urinalysis results reviewed with the patient today. PH 5.0. We discussed importance of adequate hydration relation to lower urinary tract symptoms as well as overall health and well-being. PVR 0 mL. Recent PSA results reviewed with the patient and trended below. When asked he otherwise denies any other urinary issues or concerns at this time. 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 Gender identity: Male Review of Systems Const All systems reviewed & are unremarkable except as noted in HPI and below Reports as per HPI Eyes Reports no additional complaints ENT Reports no additional complaints Card Reports as per HPI Resp Reports no additional complaints GI Reports no additional complaints Reports as per HPI Musc Reports no additional complaints Neuro Reports no additional complaints Psych Reports no additional complaints Endo Reports no additional complaints Cornell/Lymph Reports no additional complaints Aller/Immun Reports no additional complaints Physical Exam Const General: cooperative, healthy appearing, comfortable, no acute distress, well developed, alert and awake Orientation/consciousness: patient oriented x3 Limitations: no limitations HEENT Head: Yes normal to inspection, Yes normocephalic and Yes atraumatic Ears: hearing grossly normal bilaterally Eyes General: appearance normal, both eyes and all related structures Neck Neck: Yes normal visual inspection and Yes trachea midline Chest Chest palpation & inspection: normal inspection of the chest Resp Effort & Inspection: normal respiratory effort and able to speak in complete sentences Cardio Rate: regular rate GI Inspection: Yes normal to inspection Rectal Exam - Male: Yes visual inspection normal, Yes normal sphincter tone and Yes prostate normal General: Yes no CVA tenderness Back/Spine/Pelvis Back: no CVA tenderness Skin General skin exam: no rashes or lesions noted Neuro General: patient oriented x3 Extrem General: Yes normal to inspection Psych Appearance: grossly normal and well kempt Mental Status: mental status grossly normal Speech and movement: Normal speech and movement present and Clear speech present Affect: normal affect Attitude: cooperative Thought process: Normal thought process present Thought content: Normal thought content present Insight: Fair insight present (Psych) Judgement: Fair judgement present (Psych) Assessment & Plan Assessment & Plan (1) Bladder wall thickening: Code(s): N32.89 - Other specified disorders of bladder Category: Medical (2) BPH (benign prostatic hyperplasia): Code(s): N40.0 - Benign prostatic hyperplasia without lower urinary tract symptoms Category: Medical Plan In office urinalysis results reviewed with the patient today; as noted above. PVR 0 mL. Continue terazosin and finasteride as prescribed. Recent PSA results reviewed with the patient today; as noted above. Patient does report episodes of urinary hesitancy as well as dysuria however describes these episodes as infrequent in self-limiting will continue with surveillance monitoring at this time. We discussed potential near future in office cystoscopy for further assessment evaluation if symptoms persist and/or worsen. We discussed importance of adequate hydration relation to lower urinary tract symptoms as well as overall health and well-being. Follow-up in 6 months with PVR; or sooner with any issues, concerns, and or questions. Orders: Orders AMB Urinalysis Automated Today Z13.9 - Encounter for screening, unspecified AMB Post Void Residual by ultrasound Today R35.1 - Nocturia Patient Instructions: The patient had an opportunity to ask questions regarding the treatment plan. All questions were answered. Physical exam, labs, and imaging were discussed and reviewed in detail. As well as risks, benefits, and discussion of treatment choices. No major barriers to understanding were identified. The patient expressed understanding and agreement with the above treatment plan. The patient was made aware they should contact our office by phone for worsening of their current condition, the appearance of new symptoms, or with any questions or concerns. Compliance is encouraged with any medications and follow up testing that is ordered. It is a privilege to be allowed the opportunity to participate in? your urological care.? Again, if you have any questions or concerns If you have any questions or concerns please do not hesitate to contact me. The office is [phone]. This note is constructed using voice recognition software. While every effort has been made to ensure accuracy inspector packer glass container errors may have been included. Yours sincerely, Holly Araujo, PHOTOGR[employer]HER [employer] Coding Level of Care Code Est Pt Level 3 (87696) Complex EM visit Add On G2211 Diagnoses Bladder wall thickening N32.89 BPH (benign prostatic hyperplasia) N40.0
--- OUTSIDE RECORDS SUMMARY | 2024-09-17 15:21 | XMS_ITS | Encounter Summary ---
Author Organization [employer] Address [address] [facility] 7 [place] [address] Care Team Providers Care Dealer Sales Manager Name Role Phone Sherri Selby MD Primary Care Pro vider Reason for Visit * Reason Onset Date Comments Results 05/05/2023 Encounter Details Date Type Department Care Team ([facility] st Contact Info) Description 05/05/2023 Telephone [facility] MEDICINE [address] [place], [place] [phone] Sherri Selby MD [address] [place] [address] Results Social History Tobacco Use Types Packs/Day [...] results of spine. Please contact pt at [phone] documented in this encounter Plan of Treatment Upcoming Encounters Date Type Department Care Team (Late st Contact Info) Description 10/10/2024 10:00 AM EDT Office Visit [facility] MEDICINE [address] [place] [phone] Sherri Selby MD [address] [place] [address] [phone] documented as of this encounter Visit Diagnoses Not on filedocumented in this encounter Additional Health Concerns Assessment Noted Time PHQ-9 Depression Total Score: 16 023 9:09 AM EDT documented as of this encounter Care Teams Dealer Sales Manager Relationship Specialty Start Date End Date Sherri Selby MD [address] [place] [phone] PCP - General Internal Medicine 02/02/23 documented as of this encounter
--- OUTSIDE RECORDS SUMMARY | 2024-09-17 15:21 | XMS_ITS | Encounter Summary ---
Author Organization [employer] Address 75 [facility] 7t [place] [address] Care Team Providers Care Director Digital Marketing Name Role Phone Sherri Selby MD Primary Care Pro vider Reason for Visit * Reason Comments Med Refill Encounter Details Date Type Department Care Team ([facility] st Contact Info) Description 09/01/2024 Refill [facility] MEDICINE [address] [place] [address] Sherri Selby MD [address] [place] [address] Flank pain Social History Tobacco Use Types [...] 10/10/2024 10:00 AM EDT Office Visit [facility] MEDICINE [address] [place] [phone] Sherri Selby MD [address] [place] [phone] documented as of this encounter Visit Diagnoses Diagnosis Flank pain Abdominal pain, unspecified site documented in this encounter Additional Health Concerns Assessment Noted Time PHQ-9 Depression Total Score: 7 08/18/19 25 9:01 AM EDT documented as of this encounter Care Teams Director Digital Marketing Relationship Specialty Start Date End Date Sherri Selby MD [address] [place] [phone] PCP - General Internal Medicine 02/02/23 documented as of this encounter
--- OUTSIDE RECORDS SUMMARY | 2024-09-17 15:22 | XMS_ITS | Encounter Summary ---
Author Organization [employer] [facility] Address 75 [facility] 7 [place] [address] Care Team Providers Care Public Health Name Role Phone Funmi Easton MD Primary Care Provider Lorenza Stroud Primary Care Provider [phone]- [phone] Sherri Selby MD Primary Care Pro vider Encounter Details Date Type Department Care Team (Latest Contact Info) Description 03/23/2021 Abstract [facility] CONVERSIONS Dental, Provider, DDS Social History Tobacco [...] Description 10/10/2024 10:00 AM EDT Office Visit [facility] MEDICINE [address] [place] [address] Sherri Selby MD [address] [place], [place] [phone] documented as of this encounter Visit Diagnoses Not on filedocumented in this encounter Care Teams Public Health Relationship Specialty Start Date End Date Funmi Easton MD PCP - General Family Medicine 03/20/19 04/04/22 Lorenza Hodge FNP PCP - General Family Medicine 04/05/22 02/01/23 Sherri Selby MD [address] [place] [address] PCP - General Internal Medicine 02/02/23 documented as of this encounter
--- OUTSIDE RECORDS SUMMARY | 2024-09-17 15:22 | XMS_ITS | Encounter Summary ---
Author Organization [employer] Address 75 [facility] 7t [place] [address] Care Team Providers Care Nurse Aide Evaluator Name Role Phone Lorenza Hodge CUSTOMER MANAGEMENT SPECIALIST Primary Care Provider [phone]- [phone] Sherri Selby MD Primary Care Pro vider Reason for Visit * Reason Onset Date Comments triage 06/11/2022 Encounter Details Date Type Department Care Team (Late st Contact Info) Description 06/11/2022 Telephone [facility] MEDICINE [address] [place] [phone] Lorenza Hodge FNP [address] [place] [address] Dept [place] [address] triage Social History Tobacco Use Types Packs/Day [...] on pt. Voice mail to call back [facility] nurses at [phone] or if emergent care needed to go [...] Description 10/10/2024 10:00 AM EDT Office Visit [facility] MEDICINE [address] [place] [address] Sherri Selby MD [address] [place] [phone] documented as of this encounter Visit Diagnoses Not on filedocumented in this encounter Care Teams Nurse Aide Evaluator Relationship Specialty Start Date End Date Lorenza Hodge FNP PCP - General Family Medicine 04/05/22 02/01/23 Sherri Selby MD [address] [place] [address] [phone] PCP - General Internal Medicine 02/02/23 documented as of this encounter
--- OUTSIDE RECORDS SUMMARY | 2024-09-17 15:22 | XMS_ITS | Encounter Summary ---
Author Organization [email or web address] Address [address] [facility] [address] 7[address] [place] [address] Care Team Providers Care Costume Maker Name Role Phone Sherri Selby MD Primary Care Pro vider Encounter Details Date Type Department Care Team (Late st Contact Info) Description 09/12/2024 Orders Only GENERIC EXTERNAL DATA DEPARTMENT Provider, [...] Office Visit [facility] MEDICINE [address] [place], [place] [phone] Sherri Selby MD [address] [place], [place] [phone] documented as of this encounter Procedures Procedure Name Priority Date/Time Associated Diagnosis Comments PSA, TOTAL Routine 09/12/2024 3:17 PM EDT BASIC METABOLIC PANEL Routine 09/12/2024 3:17 PM EDT documented in this encounter Results * PSA,Total (09/12/2024 3:17 PM EDT) Pathologist [facility] Prostate Specific Antigen 2.08 <0.05 - 4.0 ng/mL [facility] Comment:PSA methodology: Abb scout Anglin i ChemiluminescentMicroparticle Immunoassay (CMIA) 09/12/2024 3:17 PM EDT 09/12/2024 3:17 PM EDT us Generic External Data Provider LAB BLOOD ORDERAB LES Final Result [facility] [address] [place] [address] [phone] * (ABNORMAL) Basic Metabolic Panel (09/12/2024 3:17 PM EDT) Pathologist [facility] Sodium 142 135 - 145 mmol/L [facility] Potassium 4.2 3.3 - 5.1 mmol/L [facility] Chloride 109(H) 96 - 108 mmol/L [facility] Carbon Dioxide 26 22 - 29 mmol/L [facility] Anion Gap 11(L) 12 - 20 [facility] Urea Nitrogen (BUN) 17(H) 9 - 16 mg/dL [facility] Creatinine, Serum 0.88 0.5 - 1.4 mg/dL [facility] Estimated Glomerular Filt Rate >60 [facility] Comment:Chronic Kidney Disea se: Estimated GFR < 60 mL/min/1.15n1Ckzuyb Kidney Disease: Estimated GFR < 15 mL/min/1.73m2 Glucose 86 60 - 115 mg/dL [facility] Calcium 9.5 8.4 - 10.2 mg/dL [facility] 09/12/2024 3:17 PM EDT 09/12/2024 3:17 PM EDT us Generic External Data Provider LAB BLOOD ORDERAB LES Final Result [facility] [address] [place] [address] [phone] documented in this encounter Visit Diagnoses Not on filedocumented in this encounter Additional Health Concerns Assessment Noted Time PHQ-9 Depression Total Score: 7 08/18/19 25 9:01 AM EDT documented as of this encounter Care Teams Costume Maker Relationship Specialty Start Date End Date Sherri Selby MD [address] [place] [address] PCP - General Internal Medicine 02/02/23 documented as of this encounter
--- OUTSIDE RECORDS SUMMARY | 2024-09-17 15:22 | XMS_ITS | Encounter Summary ---
Author Organization [employer] [facility] Address [address] [place] [address] 7 [place] [address] Care Team Providers Care Chalk Molding Machine Operator Name Role Phone Funmi Easton MD Primary Care Provider Lorenza Stroud Primary Care Provider +1- [phone] Sherri Selby MD Primary Care Pro vider Encounter Details Date Type Department Care Team (Latest Contact Info) Description 05/02/2019 Abstract [facility] CONVERSIONS Dental, Provider, DDS Social History [...] 10/10/2024 10:00 AM EDT Office Visit [facility] MEDICINE [address] [place] [address] Sherri Selby MD [address] [place] [address] documented as of this encounter Visit Diagnoses Not on filedocumented in this encounter Care Teams Chalk Molding Machine Operator Relationship Specialty Start Date End Date Funmi Easton MD PCP - General Family Medicine 03/20/19 04/04/22 Lorenza Hodge FNP PCP - General Family Medicine 04/05/22 02/01/23 Sherri Selby MD [address] [place] [phone] PCP - General Internal Medicine 02/02/23 documented as of this encounter
--- OUTSIDE RECORDS SUMMARY | 2024-09-17 15:22 | XMS_ITS | Encounter Summary ---
Author Organization [facility] Address [address] [place] [address] 7 [place] [address] Care Team Providers Care Machine Fur Cleaner Name Role Phone Lorenza Hodge [facility] Primary Care Provider +1- [phone] Sherri Selby MD Primary Care Pro vider Encounter Details Date Type Department Care Team (Late st Contact Info) Description 11/25/[address] [facility] MEDICINE [address] [place] [phone] Lorenza Hodge [address] Dept [place] [address] Social History Tobacco Use Types Packs/Day Years [...] Description 10/10/2024 10:00 AM EDT Office Visit [facility] MEDICINE [address] [place] [address] [phone] Sherri Selby MD [address] [place] [address] [phone] documented as of this encounter Procedures Procedure Name Priority Date/Time Associated Diagnosis Comments US RENAL BI Routine 12/06/2022 1:54 PM EDT documented in this encounter Results * US RENAL BI (12/06/2022 1:54 PM EDT) Anatomical Region Laterality Modality Abdomen Ultrasound 12/06/2022 1:54 PM EDT Narrative 12/09/2022 6:44 PM EDT ? [facility] ?[address] ?[place] [address] ? Ultrasound Report ? Signed ? Patient: Inderjit Stoner ?MR ?? #: [id number] ? : 1960 ?Acct:[id number] ? Age/Sex: 62 / M ?ADM Date: 12/06/22 ? Loc: HO.US ? Attending Dr: Lorenza OCONNELL ? Ordering Physician: Lorenza Hodge ?? Date of Service: 12/06/22 ?? Procedure(s): US renal BI ?? Accession Number(s): [id number] ? cc: Lorenza Hodge ? EXAMINATION: ?? [...] 1841 ? DD/ 1354 ? TD/TT: ? Events Assistant: ? Procedure Note Donartemioter, Image - 12/09/2022 [place] [address] Ultrasound Report Signed Patient: Inderjit Stoner [facility] #: [id number] : 1Acct:[id number] Age/Sex: 62 / MADM Date: 12/06/22 Loc: HO.US Attending Dr: Lorenza OCONNELL Ordering Physician: Lorenza Hodge Date of Service: 12/06/22 Procedure(s): US renal BI Accession Number(s): [id number] cc: Lorenza Hodge EXAMINATION: US RETROPERITONEAL LIMITED [...] in OV> 12/09/22 1841 DD/ 1354 TD/TT: Events Assistant: us Lorenza Hodge COTTAGE PARENT IMG US PROCEDURES Edited R esult - Final documented in this encounter Visit Diagnoses Not on filedocumented in this encounter Additional Health Concerns Assessment Noted Time PHQ-9 Depression Total Score: 16 023 9:09 AM EDT documented as of this encounter Care Teams Machine Fur Cleaner Relationship Specialty Start Date End Date Lorenza Hodge FNP PCP - General Family Medicine 04/05/22 02/01/23 Sherri Selby MD [address] [place] [phone] PCP - General Internal Medicine 02/02/23 documented as of this encounter
--- OUTSIDE RECORDS SUMMARY | 2024-09-17 15:22 | XMS_ITS | Encounter Summary ---
Author Organization [employer] [facility] Address 75 [facility] 7 [place] [address] Care Team Providers Care Stiff Neck Loader Name Role Phone Funmi Easton MD Primary Care Provider Lorenza Stroud Primary Care Provider +1- [phone] Sherri Selby MD Primary Care Pro vider Encounter Details Date Type Department Care Team (Latest Contact Info) Description 12/24/2021 Abstract [facility] CONVERSIONS Dental, Provider, DDS Social History [...] Description 10/10/2024 10:00 AM EDT Office Visit [facility] MEDICINE [address] [place] [address] Sherri Selby MD [address] [place], [place] [phone] documented as of this encounter Visit Diagnoses Not on filedocumented in this encounter Care Teams Stiff Neck Loader Relationship Specialty Start Date End Date Funmi Easton MD PCP - General Family Medicine 03/20/19 04/04/22 Lorenza Hodge FNP PCP - General Family Medicine 04/05/22 02/01/23 Sherri Selby MD [address] [place] [address] PCP - General Internal Medicine 02/02/23 documented as of this encounter
--- OUTSIDE RECORDS SUMMARY | 2024-09-17 15:22 | XMS_ITS | Clinical Summary ---
Author Organization [employer] Address [address] [facility] 7t [place] [address] Care Team Providers Care Design Coordinator Name Role Phone Sherri Selby MD Primary Care Pro vider Allergies Active Allergy Reactions Criticality Noted Date Comments Fruit Extracts 08/06/2022 Other reaction(s): mouth itches Medications * This document contains information received from the source organization and may not represent a complete record from that organization. famotidine (Pepcid) 40 MG tablet Take 40 mg by mouth at bedtime. 3 Active senna (Senokot) 8.6 MG tablet [...] 0.4 MG SL tabletIndicatio ns:Atherosclero sis of ruby coronary artery of ruby heart with stable angina pectoris (CMS/HCC) Place [...] by mouth 1 (one) time. 4 Active topiramate (Topamax) 25 MG tablet Take 25 mg by mouth at bedtime. 4 Active Linzess 290 MCG capsule Take 290 mcg by mouth in the morning. 4 Active Multiple Vitamins-Minera ls (CertaVite/Anti oxidants) tablet Take 1 tablet by mouth in the morning. 90 tablet 3 4 Active atorvastatin (Lipitor) 80 MG tablet Take 1 tablet (80 mg) by mouth Once per day. TAKE 1 TABLET BY MOUTH AT BEDTIME 90 tablet 3 4 Active aspirin (Aspirin Low Dose) 81 MG EC tabletIndicatio ns:TIA (transient ischemic attack) TAKE 1 TABLET BY MOUTH EVERY MORNING 90 tablet 1 5 Active Vascepa 1 g capsule TAKE 1 CAPSULE BY MOUTH EVERY MORNING 90 capsule 1 5 Active lidocaine-prilo dario (Emla) 2.5-2.5 % cream Apply topically if needed each day for mild pain. 30 g 2 5 Active dicyclomine (Bentyl) 10 MG capsule Take 10 mg by mouth. 5 Active traZODone (Desyrel) 50 MG tablet Take 50 mg by mouth at bedtime. 5 Active hydrOXYzine pamoate (Vistaril) 25 MG capsule TAKE 1-2 CAPSULE (S) BY MOUTH ONCE DAILY NEEDED ANXIETY 4 Active sodium chloride (Meeker) 0.65 % nasal spray Administer 1 spray into each nostril if needed for congestion. 15 mL 2 5 08/18/19 26 Active Icosapent Ethyl (Vascepa) 1 g capsule Take 2 capsules (2 g) by mouth with breakfast and with evening meal. 120 capsule 11 5 08/23/19 26 Active Active Problems Problem Noted Date Diagnosed [...] hemorrhoids and left sided diverticulosis Atherosclerosis of ruby co ronary artery of ruby heart with stable angina pectoris 08/10/2022 Overview (11/24/2022): Cardiac hx Chest pain continued SOB Leg swelling Assessment & Plan (11/24/2022 6:12 PM EDT): Try and locate Cards notes Check BNP F/u PRN Gastroesophageal reflux disease 06/14/2022 Migraine without aura and wi thout status migrainosus, not intractable 06/07/2022 Overview (02/02/2023): Care Managed by [facility]rology [facility] - Pt has chronic left mandaeism migraine. Injury to L mandaeism about 3 years ago. Last appt 04/28/22 [...] to locate records Gave pt card with [facility] Fax number and have all specialists fax records to this number Continue medications F/u PRN Nonintractable epilepsy with complex partial sei zures 06/07/2022 Overview (02/02/2023): Dyscognitive seizure disorder with episodes of blurry vision and passing out Care Managed by [facility] Last appt 04/28/22 Treating Keppra 250mg [...] to locate records Gave pt card with [facility] Fax number and have all specialists [...] intervention and Patient to reach out to [facility] team as needed Rule Out [...] Encounters Date Type Department Care Team Description 09/12/2024 Orders Only GENERIC EXTERNAL DATA DEPARTMENT Provider, Generic External Data 09/04/2024 10:30 AM EDT Clinical Support [facility] MEDICINE [address] [place] [address] April Bello RN Poor memory 09/04/2024 Travel 09/01/2024 Refill [facility] [address] [place] [address] Sherri Selby MD Flank pain 08/17/2024 9:00 AM EDT Office Visit [facility] MEDICINE [address] [place] [address] Sherri Selby MD Transaminitis (Primary Dx); Encounter for immunization; Dietary counseling; Exercise counseling; Severe episode of recurrent major depressive disorder, with psychotic features (CMS/HCC); Nonintractable epilepsy with complex partial seizures ([facility]/HCC); Atherosclerosis of ruby coronary artery of ruby heart with stable angina pectoris ([facility]/HCC); Mixed hyperlipidemia; Health care maintenance; Poor memory; Carotid stenosis, asymptomatic, bilateral 08/17/2024 Travel 08/14/2024 Orders Only [facility] MEDICINE [address] [place] [address] Sherri Selby MD 08/14/2024 Orders Only [facility] [address] [place] [address] Aditi Tabor MD 08/13/2024 Telephone [facility] [address] [place] [phone] Sherri Selby MD Prior Auth Prescription (Lidocaine patches) 08/13/2024 Telephone [facility] [address] [place] [address] Sherri Selby MD 08/13/2024 Refill [facility] [address] [place] [address] Mayelin Robin MD 08/06/2024 Telephone [facility] [address] [place] [address] Sherri Selby MD chart prep 06/28/2024 Refill [facility] [address] [place] [address] Sherri Selby MD TIA (transient ischemic attack) 06/26/2024 1:00 PM EST Office Visit [facility] ADULT DENTAL [address] [place] [address] Divina Vickers Encounter for dental examination (Primary [...] Description 10/10/2024 10:00 AM EDT Office Visit [facility] MEDICINE [address] [place] [address] Sherri Selby MD [address] [place] [address] Health Maintenance Due Date Last Done Comments CT Colonography 1960 Colonoscopy 1960 FIT DNA/Cologuard 1960 Sigmoidoscopy 1960 Pneumococcal Vaccine: 50+ Years (1 of 2 - PCV) 1979 Dental Oral Exam 12/25/2024 06/26/2024, 01/2023, 12/24/2021, Additional history exists Dental Prophylaxis 12/25/2024 06/26/2024, 0 10/18/2023, 03/24/2023, Additional history exists Colorectal Cancer Screening 03/07/2025 FIT 03/07/2025 03/07/2024, 06/05/2023 FOBT 03/07/2025 03/07/2024, 06/05/2023 Dental X-Ray: Bitewings 06/27/2025 06/26/19 25, 03/24/2023, 12/24/2021, Additional history exists Alcohol/Substance Use Screening 08/17/2025 08/17/2024 Depression Screening 08/17/2025 08/17/2024, 08/18/19 SDOH Screening 08/17/2025 08/17/2024 Tobacco Screening 08/17/2025 08/17/2024 Diabetes: Hemoglobin A1C 09/12/2025 025, 11/16/2023, 08/10/2022, Additional history exists Dental X-Ray: Full Mouth 03/25/2026 023, 05/02/2019, 06/16/2018, Additional history exists Lipid Panel 09/12/2029 09/12/2024, 11/0 08/2023, 11/16/2023, Additional history exists DTaP/Tdap/Td Vaccines (4 - Td or Tdap) [...] METABOLIC PANEL Routine 09/12/2024 3:17 PM EDT LIPID PANEL, STANDARD Routine 09/12/2024 7:47 AM EDT Transaminitis HEMOGLOBIN A1C Routine 09/12/2024 7:47 AM EDT Transaminitis COMPREHENSIVE METABOLIC PANEL Routine 09/12/2024 7:47 AM EDT Transaminitis US ABDOMEN COMPLETE Routine 08/30/2024 8 :26 [...] examination Dental calculus Dental plaque Dental caries FECAL GLOBIN BY IMMUNOCHEMISTRY Routine 03/07/2024 12:00 [...] Recently Relevant to Health Maintenance Results * PSA,Total (09/12/2024 3:17 PM EDT) Pathologist [facility] [place] Prostate Specific Antigen 2.08 <0.05 - 4.0 ng/mL [facility] Comment:PSA methodology: Lily Anglin i ChemiluminescentMicroparticle Immunoassay (CMIA) 09/12/2024 3:17 PM EDT 09/12/2024 3:17 PM EDT us Generic External Data Provider LAB BLOOD ORDERAB LES Final Result [facility] [address] [place] [phone] * (ABNORMAL) Basic Metabolic Panel (09/12/2024 3:17 PM EDT) Pathologist [facility] [place] Sodium 142 135 - 145 mmol/L [facility] Potassium 4.2 3.3 - 5.1 mmol/L [facility] Chloride 109(H) 96 - 108 mmol/L [facility] Carbon Dioxide 26 22 - 29 mmol/L [facility] Anion Gap 11(L) 12 - 20 [facility] Urea Nitrogen (BUN) 17(H) 9 - 16 mg/dL [facility] Creatinine, Serum 0.88 0.5 - 1.4 mg/dL [facility] Estimated Glomerular Filt Rate >60 [facility] Comment:Chronic Kidney Disea se: Estimated GFR < 60 mL/min/1.87c3Vyfnev Kidney Disease: Estimated GFR < 15 mL/min/1.73m2 Glucose 86 60 - 115 mg/dL [facility] Calcium 9.5 8.4 - 10.2 mg/dL [facility] 09/12/2024 3:17 PM EDT 09/12/2024 3:17 PM EDT us Generic External Data Provider LAB BLOOD ORDERAB LES Final Result Performing Organization Address [facility] Co de Phone Number [facility] [address] [place] [phone] * Hemoglobin A1c (09/12/2024 7:47 AM EDT) Hemoglobin A1c 5.8 <6.0 % [facility] Comment:Hemoglobin A1C Refer ence Range Adults: 4.8 - 6.0 % Non diabetic: < 6.0 % Goal: < 7.0 %Additional Action Suggested: > 8.0 %Note: Hemoglobin A1c results are invalid for patients with abnormal amounts of HbF. Blood transfusions may impact the HbA1c concentration in the patient sample. Estimated Average Glucose 120 mg/dL [facility] Comment:eAG = Estimated ave rage glucose which is %A1C expressed asaverage glucose, using the formula of the Y2U-PfmbtjvBsobrey Glucose study (ADAG), Diabetes Care, Vol.31,#8,2007 Blood Venous blood specimen / Unknown 09/12/2024 7:47 AM EDT 09/12/2024 7:47 AM EDT us Sherri Navarro MD LAB BLOOD ORDERAB LES Final Result Performing Organization Address [facility]/ZIP Co de Phone Number [facility] [address] [place] [phone] * Lipid Panel, Standard (09/12/2024 7:47 AM EDT) Triglycerides 137 <150 mg/dL [facility] Comment:Desirable Triglyceri de: less than 150 mg/dLBorderline High Triglyceride 150-199 mg/dLHigh Triglyceride: 200-499 mg/dLVery High Triglyceride: greater than or equal to 5OO mg/dL Cholesterol 150 <200 mg/dL [facility] Comment:Desirable Cholestero l: less than 200 mg/dLBorderline High Cholesterol: 200-239 mg/dLHigh Cholesterol: greater than 239 mg/dL LDL Cholesterol Calculated 80 <100 mg/dL [facility] Comment:Desirable LDL: less than 100 mg/dLNear Optimal/Above Optimal LDL: 110- 129 mg/dLBorderline High LDL: 130-159 mg/dLHigh LDL: 160-189 mg/dLVery High LDL: greater than or equal to 190 mg/dL HDL Cholesterol 43 >40 mg/dL [facility] Comment:Desirable HDL: great er than 40 mg/dL Note: This HDL assay may give artificially low results in patients with liver disease. Blood Venous blood specimen / Unknown 09/12/2024 7:47 AM EDT 09/12/2024 7:47 AM EDT us Sherri Navarro MD LAB BLOOD ORDERAB LES Final Result [facility] [address] [place] [phone] * (ABNORMAL) Comprehensive Metabolic Panel (09/12/2024 7:47 AM EDT) Sodium 142 135 - 145 mmol/L [facility] Potassium 4.3 3.3 - 5.1 mmol/L [facility] Chloride 109(H) 96 - 108 mmol/L [facility] Carbon Dioxide 26 22 - 29 mmol/L [facility] Anion Gap 11(L) 12 - 20 [facility] Urea Nitrogen (BUN) 15 9 - 16 mg/dL [facility] Creatinine, Serum 0.97 0.5 - 1.4 mg/dL [facility] Estimated Glomerular Filt Rate >60 [facility] Comment:Chronic Kidney Disea se: Estimated GFR < 60 mL/min/1.40z5Udnwnb Kidney Disease: Estimated GFR < 15 mL/min/1.73m2 Glucose 98 60 - 115 mg/dL [facility] Calcium 9.4 8.4 - 10.2 mg/dL [facility] Bilirubin, Total 0.9 0.0 - 1.0 mg/dL [facility] Aspartate Amino Transferase 23 5 - 37 U/L [facility] Alanine Aminotransferase 46(H) 0 - 40 U/L [facility] Total Protein 7.0 6.5 - 8.0 g/dL [facility] Albumin Level 4.2 3.5 - 5.0 g/dL [facility] Alkaline Phosphatase 91 39 - 117 U/L [facility] Blood Venous blood specimen / Unknown 09/12/2024 7:47 AM EDT 09/12/2024 7:47 AM EDT us Sherri Navarro MD LAB BLOOD ORDERAB LES Final Result [facility] [address] [place] [phone] * US Abdomen Complete (08/30/2024 8:26 AM EDT) Anatomical Region Laterality Modality Abdomen Ultrasound 08/30/2024 8:26 AM EDT Narrative 08/30/2024 9:29 AM EDT ? [facility] ?[address] ?[place] [address] ? Ultrasound Report ? Signed ? Patient: Vincent Banks,Shemar ?MR ?? #: [id number] ? : 1960 ?Acct:[id number] ? Age/Sex: 64 / M ?ADM Date: 04/17/25 ? Loc: HO.US ? Attending Dr: Sherri Navarro MD ? Ordering Physician: Sherri Selby MD ?? Date of Service: 08/30/24 ?? Procedure(s): US abdomen complete ?? Accession Number(s): [id number] ? cc: Sherri Selby MD ? EXAMINATION: [...] DD/ 0826 ? TD/TT: 08/30/24 0841 ? Manager Of Production: ? Procedure Note Brooke, Image - 08/30/[address] [address] Ultrasound Report Signed Patient: Inderjit Stoner [facility] #: [id number] : 1960cct:[id number] Age/Sex: 64 / MADM Date: 08/30/24 Loc: HO.US Attending Dr: Sherri Navarro MD Ordering Physician: Sherri Selby MD Date of Service: 08/30/24 Procedure(s): US abdomen complete Accession Number(s): [id number] cc: Sherri Selby MD EXAMINATION: US ABDOMEN HISTORY: pt with [...] in OV> 08/30/24926 DD/ 5 TD/TT: 08/30/24840 Manager Of Production: Sherri Navarro MD IMG US PROCEDURES Final Result * Fecal Globin by Immunochemistry (03/07/2024 12:00 AM EDT) Fecal Globin By Immunochemistry SEE NOTE [facility] Comment: ??FECAL GLOBIN BY IMMUNOCHEMISTRY ?Micro Number: ?[id number] ??Test Status: ? Final ??Specimen Source: ?? Insure (tm) fobt test card ??Specimen Quality: ??Adequate ??Fecal Globin: ?Not Detected 03/07/2024 03/15/2024 5:1 8 AM EDT Narrative [facility] - 03/15/2024 4:25 PM EDT FASTING: UNKNOWN Result [facility] External Provider LAB BODY FLUIDS AND STOOLS ORDERABLES Final Result [facility] [address], [place] [address] [employer] [place] [facility] [address] [place] [phone] * Hepatitis C Antibody with Reflex to HCV, RNA, Quantitative, Real-Time PCR (11/16/2023 12:08 PM EDT) Hepatitis C Antibody Nonreactive Nonreactive [facility] Comment:Antibodies to HCV no t detected; does not exclude early acuteHCV infection. Blood Venous blood specimen / Unknown 11/16/2023 12:08 PM EDT 11/16/2023 12:08 PM EDT Sherri Navarro MD LAB BLOOD ORDERAB LES Final Result [facility] [address] [place] [address] [place] [phone] * HIV-1/2 Antigen and Antibodies, Fourth Generation, with Reflexes (11/16/2023 12:08 PM EDT) HIV AB/AG Nonreactive Nonreactive [facility] Comment:HIV-1 p24 Ag and/or HIV-1/HIV-2 Ab not detected.A test result that is nonreactive does not exclude thepossibility of exposure to or infection with HIV-1 and/orHIV-2. Nonreactive results in this assay for individualswith prior exposure to HIV-1 and/or HIV-2 may be due toantigen and antibody levels that are below the limit ofdetection of this assay.The [employer] HIV Ag/Ab Combo assay result andsupplemental assay results should be interpreted inconjunction with the patient's clinical presentation,history and other laboratory results. If the results areinconsistent with clinical evidence, additional testing issuggested to confirm the result. Blood Venous blood specimen / Unknown 11/16/2023 12:08 PM EDT 11/16/2023 12:08 PM EDT us Sherri Navarro MD LAB BLOOD ORDERAB LES Final Result [facility] [address] [place] [phone] [phone] from Last 3 Months or Most Recently Relevant to Health Maintenance Insurance [employer] < 65 Care Teams Design Coordinator Relationship Specialty Start Date End Date Sherri Selby MD [address] [place] [address] PCP - General Internal Medicine 02/02/23
--- OUTSIDE RECORDS SUMMARY | 2024-09-17 15:22 | XMS_ITS | Clinical Summary ---
Author Organization [facility] Address [address] [place] [phone] Phone Care Team Providers Care Preventive Maintenance Coordinator Name Role Phone Unavailable Primary Care Provider [...]
== END 2024-09-17 14:35 | disposition home or self-care (01) ==
LOC: HO.HUSH 13:50
PROVIDERS: PCP Registered Nurse; Visit Provider Nurse Practitioner Family
DX: N32.89 Other specified disorders of bladder (principal); N40.0 Benign prostatic hyperplasia without lower urinary tract symptoms; Z13.9 Encounter for screening, unspecified
CPT/HCPCS: 99213; G2211

== ENCOUNTER → 2024-09-17 13:50 | Outpatient (BNVA) | payer OTHER, SELFPAY | PROVIDERS: PCP Registered Nurse; Visit Provider Nurse Practitioner Family | DX: N40.0 Benign prostatic hyperplasia without lower urinary tract symptoms (principal); N32.89 Other specified disorders of bladder; R35.1 Nocturia | CPT/HCPCS: 51798; 81003; 99212 ==

== ENCOUNTER 2024-09-28 09:35 | Outpatient (REF) | payer OTHER, SELFPAY ==
--- OUTSIDE RECORDS SUMMARY | 2024-09-28 09:54 | XMS_ITS | Encounter Summary ---
Author Organization [employer] [facility] Address [address] [place] [address] 7 [place] [address] Care Team Providers Care Crushed Stone Grader Name Role Phone Funmi Easton MD Primary Care Provider Lorenza Stroud Primary Care Provider [phone]- [phone] Sherri Selby MD Primary Care Pro vider Encounter Details Date Type Department Care Team (Latest Contact Info) Description 03/23/2021 Abstract [facility] CONVERSIONS Dental, Provider, DDS Social History Tobacco [...] Upcoming Encounters Date Type Department Care Team ( st Contact Info) Description 10/10/2024 10:00 AM EDT Office Visit [facility] MEDICINE [address] [place] [address] Sherri Selby MD [address] [place] [address] documented as of this encounter Visit Diagnoses Not on filedocumented in this encounter Care Teams Crushed Stone Grader Relationship Specialty Start Date End Date Funmi Easton MD PCP - General Family Medicine 03/20/19 04/04/22 Lorenza Hodge FNP PCP - General Family Medicine 04/05/22 02/01/23 Sherri Selby MD [address] [place] [phone] PCP - General Internal Medicine 02/02/23 documented as of this encounter
--- OUTSIDE RECORDS SUMMARY | 2024-09-28 09:54 | XMS_ITS | Encounter Summary ---
Author Organization [employer] [facility] Address [address] [place] [address] 7 [place] [address] Care Team Providers Care Ultrasound Technologist Sonographer Name Role Phone Funmi Easton MD Primary Care Provider Lorenza Stroud Primary Care Provider [phone]- [phone] Sherri Selby MD Primary Care Pro vider Encounter Details Date Type Department Care Team (Latest Contact Info) Description 05/02/[address] [facility] CONVERSIONS Dental, Provider, DDS Social History [...] EDT Office Visit [facility] MEDICINE [address] [place] [address] Sherri Selby MD [address] [place] [address] documented as of this encounter Visit Diagnoses Not on filedocumented in this encounter Care Teams Ultrasound Technologist Sonographer Relationship Specialty Start Date End Date Funmi Easton MD PCP - General Family Medicine 03/20/19 04/04/22 Lorenza Hodge FNP PCP - General Family Medicine 04/05/22 02/01/23 Sherri Selby MD [address] [place] [address] PCP - General Internal Medicine 02/02/23 documented as of this encounter
--- OUTSIDE RECORDS SUMMARY | 2024-09-28 09:54 | XMS_ITS | Encounter Summary ---
Author Organization [employer] Address [address] [facility] 7 [place] [address] Care Team Providers Care Mechanical Operator Name Role Phone Sherri Selby MD Primary Care Pro vider Reason for Visit * Reason Onset Date Comments Results 05/05/2023 Encounter Details Date Type Department Care Team ([facility] st Contact Info) Description 05/05/2023 Telephone [facility] MEDICINE [address] [place], [place] [phone] Sherri Selby MD [address] [place], [place] [phone] Results Social History Tobacco Use Types Packs/Day [...] results of spine. Please contact pt at [phone] documented in this encounter Plan of Treatment Upcoming Encounters Date Type Department Care Team (Late st Contact Info) Description 10/10/2024 10:00 AM EDT Office Visit [facility] MEDICINE [address] [place] [phone] Sherri Selby MD [address] [place] [phone] documented as of this encounter Visit Diagnoses Not on filedocumented in this encounter Additional Health Concerns Assessment Noted Time PHQ-9 Depression Total Score: 16 023 9:09 AM EDT documented as of this encounter Care Teams Mechanical Operator Relationship Specialty Start Date End Date Sherri Selby MD [address] [place] [phone] PCP - General Internal Medicine 02/02/23 documented as of this encounter
--- OUTSIDE RECORDS SUMMARY | 2024-09-28 09:54 | XMS_ITS | Encounter Summary ---
Author Organization [employer] [facility] Address [address] [place] [address] 7 [place] [address] Care Team Providers Care Exhibition Designer Name Role Phone Funmi Easton MD Primary Care Provider Lorenza Stroud Primary Care Provider [phone]- [phone] Sherri Selby MD Primary Care Pro vider Encounter Details Date Type Department Care Team (Latest Contact Info) Description 12/24/2021 Abstract [facility] CONVERSIONS Dental, Provider, DDS Social History [...] Description 10/10/2024 10:00 AM EDT Office Visit [facility] MEDICINE [address] [place] [address] Sherri Selby MD [address] [place] [address] documented as of this encounter Visit Diagnoses Not on filedocumented in this encounter Care Teams Exhibition Designer Relationship Specialty Start Date End Date Funmi Easton MD PCP - General Family Medicine 03/20/19 04/04/22 Lorenza Hodge FNP PCP - General Family Medicine 04/05/22 02/01/23 Sherri Selby MD [address] [place] [phone] PCP - General Internal Medicine 02/02/23 documented as of this encounter
--- OUTSIDE RECORDS SUMMARY | 2024-09-28 09:54 | XMS_ITS | Encounter Summary ---
Author Organization [employer] Address [address] [facility] 7t [place] [address] Care Team Providers Care Sight Effects Specialist Name Role Phone Lorenza Hodge Primary Care Provider [phone]- [phone] Sherri Selby MD Primary Care Pro vider Reason for Visit * Reason Onset Date Comments triage 06/11/2022 Encounter Details Date Type Department Care Team (Late st Contact Info) Description 06/11/[address] [facility] MEDICINE [address] [place] [address] Lorenza Hodge FNP [address] [place] [address] [place] [address] triage Social History Tobacco Use Types Packs/Day [...] on pt. Voice mail to call back [facility] nurses at [phone] or if emergent care needed to go [...] 10/10/2024 10:00 AM EDT Office Visit [facility] MEDICINE [address] [place] [phone] Sherri Selby MD [address] [place] [phone] documented as of this encounter Visit Diagnoses Not on filedocumented in this encounter Care Teams Sight Effects Specialist Relationship Specialty Start Date End Date Lorenza Hodge FNP PCP - General Family Medicine 04/05/22 02/01/23 Sherri Selby MD [address] [place] [phone] PCP - General Internal Medicine 02/02/23 documented as of this encounter
--- OUTSIDE RECORDS SUMMARY | 2024-09-28 09:54 | XMS_ITS | Clinical Summary ---
Author Organization [employer] Address [address] [facility] 7t [place] [address] Care Team Providers Care Sock Turner Name Role Phone Sherri Selby MD Primary [...] 0.4 MG SL tabletIndicatio ns:Atherosclero sis of chickahom[place] indians-eastern division coronary artery of chick[place]ians[place] heart with stable angina pectoris (CMS/HCC) Place [...] DAILY NEEDED ANXIETY 4 Active sodium chloride ([place]) 0.65 % nasal spray Administer 1 spray [...] hemorrhoids and left sided diverticulosis Atherosclerosis of chick[place] indians[place]eastern division co ronary artery of chick[place] indians[place] heart with stable angina pectoris 08/10/2022 Overview (11/24/2022): Cardiac hx Chest pain continued SOB Leg swelling Assessment & Plan (11/24/2022 6:12 PM EDT): Try and locate Cards notes Check BNP F/u PRN Gastroesophageal reflux disease 06/14/2022 Migraine without aura and wi thout status migrainosus, not intractable 06/07/2022 Overview (02/02/2023): Care Managed by Neurology [facility] - Pt has chronic left baptist migraine. Injury to L baptist about 3 years ago. Last appt 04/28/22 [...] passing out Care Managed by Neurology associates [facility] Last appt 04/28/22 Treating Keppra 250mg [...] intervention and Patient to reach out to [facility] team as needed Rule Out Diagnoses n/a [...] Data 09/04/2024 10:30 AM EDT Clinical Support [facility] [address] [place] [address] April Bello RN Poor memory 09/04/2024 Travel 09/01/2024 Refill [facility] [address] [place] [address] Sherri Selby MD Flank pain 08/17/2024 9:00 AM EDT Office Visit [facility] [address] [place] [address] Sherri Selby MD Transaminitis (Primary Dx); Encounter for immunization; Dietary counseling; Exercise counseling; Severe episode of recurrent major depressive disorder, with psychotic features (CMS/HCC); 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); Atherosclerosis of chickahom[place] indians[place]eastern division coronary artery of chick[place] indians[place]eastern division heart with stable angina pectoris (CMS/HCC); Mixed hyperlipidemia; Health care maintenance; Poor memory; Carotid stenosis, asymptomatic, bilateral 08/17/2024 Travel 08/14/2024 Orders Only [facility] [address] [place] [address] Sherri Selby MD 08/14/2024 Orders Only [facility] [address] [place], [place] [phone] Aditi Tabor MD 08/13/2024 Telephone [facility] [address] [place] [address] Sherri Selby MD Prior Auth Prescription (Lidocaine patches) 08/13/2024 Telephone [facility] [address] [place] [address] Sherri Selby MD 08/13/2024 Refill [facility] [address], [place] [phone] Mayelin Robin MD 08/06/2024 Telephone [facility] [address] [place] [address] Sherri Selby MD chart prep from Last 3 Months Immunizations Immunization Administration Dates Next Due Hep B, adult [...] Visit [facility] [address] [place] [phone] Sherri Selby MD [address] [place], [place] [phone] Health Maintenance Due Date Last Done Comments [...] Additional history exists Lipid Panel 09/12/2029 09/12/2024, 08/2023, 11/16/2023, Additional history exists DTaP/Tdap/Td Vaccines [...] Routine 08/30/2024 8 :26 AM EDT Transaminitis PROPHYLAXIS - ADULT Routine 06/26/2024 1 :00 PM EST BITEWINGS - 4 RADIOGRAPHIC IMAGES Routine 06/26/2024 1:00 PM EST PERIODIC ORAL [...] Results * PSA,Total (09/12/2024 3:17 PM EDT) Prostate Specific Antigen 2.08 <0.05 - 4.0 ng/mL [facility] Comment:PSA methodology: Abb scout Alijelenaty i ChemiluminescentMicroparticle Immunoassay (CMIA) 09/12/2024 3:17 PM EDT 09/12/2024 3:17 PM EDT us Generic External Data Provider LAB BLOOD ORDERAB LES Final Result Performing Organization Address [facility]/ZIP Co de Phone Number [facility] [address] [place] [address] [phone] * (ABNORMAL) Basic Metabolic Panel (09/12/2024 3:17 PM EDT) Sodium 142 135 - 145 mmol/L [facility] Potassium 4.2 3.3 - 5.1 mmol/L [facility] Chloride 109(H) 96 - 108 mmol/L [facility] Carbon Dioxide 26 22 - 29 mmol/L [facility] Anion Gap 11(L) 12 - 20 [facility] Urea Nitrogen (BUN) 17(H) 9 - 16 mg/dL [facility] Creatinine, Serum 0.88 0.5 - 1.4 mg/dL [facility] Estimated Glomerular Filt Rate >60 [facility] Comment:Chronic Kidney Disea se: Estimated GFR < 60 mL/min/1.79o3Syuifc Kidney Disease: Estimated GFR < 15 mL/min/1.73m2 Glucose 86 60 - 115 mg/dL [facility] Calcium 9.5 8.4 - 10.2 mg/dL [facility] 09/12/2024 3:17 PM EDT 09/12/2024 3:17 PM EDT us Generic External Data Provider LAB BLOOD ORDERAB LES Final Result Performing Organization Address City/[facility]/ZIP Co de Phone Number [facility] [address] [place] [address] [phone] * Hemoglobin A1c (09/12/2024 7:47 AM EDT) Hemoglobin A1c 5.8 <6.0 % [facility] Comment:Hemoglobin A1C Refer ence Range Adults: 4.8 - 6.0 % Non diabetic: < 6.0 % Goal: < 7.0 %Additional Action Suggested: > 8.0 %Note: Hemoglobin A1c results are invalid for patients with abnormal amounts of HbF. Blood transfusions may impact the HbA1c concentration in the patient sample. Estimated Average Glucose 120 mg/dL [facility] Comment:eAG = Estimated ave rage glucose which is %A1C expressed asaverage glucose, using the formula of the H4D-DkfsbfwOgrccud Glucose study (ADAG), Diabetes Care, Vol.31,#8,Dec. 2007 Blood Venous blood specimen / Unknown 09/12/2024 7:47 AM EDT 09/12/2024 7:47 AM EDT Sherri Navarro MD LAB BLOOD ORDERAB LES Final Result [facility] [address] [place] [phone] * Lipid Panel, Standard (09/12/2024 7:47 AM EDT) Triglycerides 137 <150 mg/dL [facility] Comment:Desirable Triglyceri de: less than 150 mg/dLBorderline High Triglyceride 150-199 mg/dLHigh Triglyceride: 200-499 mg/dLVery High Triglyceride: greater than or equal to 5OO mg/dL Cholesterol 150 <200 mg/dL [facility] Comment:Desirable Cholestero l: less than 200 mg/dLBorderline High Cholesterol: 200-239 mg/dLHigh Cholesterol: greater than 239 mg/dL LDL Cholesterol Calculated 80 <100 mg/dL [facility] Comment:Desirable LDL: less than 100 mg/dLNear Optimal/Above Optimal LDL: 110- 129 mg/dLBorderline High LDL: 130-159 mg/dLHigh LDL: 160-189 mg/dLVery High LDL: greater than or equal to 190 mg/dL HDL Cholesterol 43 >40 mg/dL [facility] Comment:Desirable HDL: great er than 40 mg/dL Note: This HDL assay may give artificially low results in patients with liver disease. Blood Venous blood specimen / Unknown 09/12/2024 7:47 AM EDT 09/12/2024 7:47 AM EDT us Sherri Navarro MD LAB BLOOD ORDERAB LES Final Result [facility] [address] [place] [phone] * (ABNORMAL) Comprehensive Metabolic Panel (09/12/2024 7:47 AM EDT) Sodium 142 135 - 145 mmol/L [facility] Potassium 4.3 3.3 - 5.1 mmol/L [facility] Chloride 109(H) 96 - 108 mmol/L [facility] Carbon Dioxide 26 22 - 29 mmol/L [facility] Anion Gap 11(L) 12 - 20 [facility] Urea Nitrogen (BUN) 15 9 - 16 mg/dL [facility] Creatinine, Serum 0.97 0.5 - 1.4 mg/dL [facility] Estimated Glomerular Filt Rate >60 [facility] Comment:Chronic Kidney Disea se: Estimated GFR < 60 mL/min/1.64n3Gwdutl Kidney Disease: Estimated GFR < 15 mL/min/1.73m2 Glucose 98 60 - 115 mg/dL [facility] Calcium 9.4 8.4 - 10.2 mg/dL [facility] Bilirubin, Total 0.9 0.0 - 1.0 mg/dL [facility] Aspartate Amino Transferase 23 5 - 37 U/L [facility] Alanine Aminotransferase 46(H) 0 - 40 U/L [facility] Total Protein 7.0 6.5 - 8.0 g/dL [facility] Albumin Level 4.2 3.5 - 5.0 g/dL [facility] Alkaline Phosphatase 91 39 - 117 U/L [facility] Blood Venous blood specimen / Unknown 09/12/2024 7:47 AM EDT 09/12/2024 7:47 AM EDT us Sherri Navarro MD LAB BLOOD ORDERAB LES Final Result [facility] [address] [place] [address] [phone] * US Abdomen Complete (08/30/2024 8:26 AM EDT) Anatomical Region Laterality Modality Abdomen Ultrasound 08/30/2024 8:26 AM EDT Narrative 08/30/2024 9:29 AM EDT ? [facility] ?[address] ?[place] [address] ? Ultrasound Report ? Signed ? Patient: Inderjit Stoner ?MR ?? #: [id number] ? : 1960 ?Acct:[id number] ? Age/Sex: 64 / M ?ADM Date: 08/30/24 ? Loc: HO.US ? Attending Dr: Sherri Navarro MD ? Ordering Physician: Sherri Selby MD ?? Date of Service: 08/30/24 ?? Procedure(s): US abdomen complete ?? Accession Number(s): [id number] ? cc: Sherri Selby MD ? EXAMINATION: [...] ??Carlton Raya MD ??08/30/2024 09:27 AM EDT ? Dictated By: ?Carlton Raya MD ? Signed By: ?<Electronically signed by Carlton Raya MD in OV> ?08/30/24 0927 ? DD/ 0826 ? TD/TT: 08/30/24 0841 ? Sharebroker: ? Procedure Note Donartemioter, Image - 08/30/2024 [place] [address] Ultrasound Report Signed Patient: Inderjit Stoner AMR #: [id number] : 1960cct:[id number] Age/Sex: 64 / MADM Date: 08/30/24 Loc: HO.US Attending Dr: Sherri Navarro MD Ordering Physician: Sherri Selby MD Date of Service: 08/30/24 Procedure(s): US abdomen complete Accession Number(s): [id number] cc: Sherri Selby MD EXAMINATION: US ABDOMEN [...] Raya MD Signed By: <Electronically signed by aCrlton Raya MD in OV> 08/30/[address] DD/ 08 TD/TT: 08/30/24 0841 Share[employer]ker: Sherri Navarro MD [facility] US PROCEDURES Final Result * Fecal Globin by Immunochemistry (03/07/2024 12:00 AM EDT) Fecal Globin By Immunochemistry SEE NOTE [facility] Comment: ??FECAL GLOBIN BY IMMUNOCHEMISTRY ?Micro Number: ?[id number] ??Test Status: ? Final ??Specimen Source: ?? Insure (tm) fobt test card ??Specimen Quality: ??Adequate ??Fecal Globin: ?Not Detected 03/07/2024 03/15/2024 5:1 8 AM EDT Narrative [facility] - 03/15/2024 4:25 PM EDT FASTING: UNKNOWN us [facility] External Provider LAB BODY FLUIDS AND STOOLS ORDERABLES Final Result [facility] [address] [facility], [place] [address] [employer] [address] [place] [address] * Hepatitis C Antibody with Reflex to HCV, RNA, Quantitative, Real-Time PCR (11/16/2023 12:08 PM EDT) Hepatitis C Antibody Nonreactive Nonreactive [facility] Comment:Antibodies to HCV no t detected; does not exclude early acuteHCV infection. Blood Venous blood specimen / Unknown 11/16/2023 12:08 PM EDT 11/16/2023 12:08 PM EDT Sherri Navarro MD LAB BLOOD ORDERAB LES Final Result [facility] [address] [place] [address] [phone] * HIV-1/2 Antigen and Antibodies, Fourth Generation, with Reflexes (11/16/2023 12:08 PM EDT) HIV AB/AG Nonreactive Nonreactive [facility] Comment:HIV-1 p24 Ag and/or HIV-1/HIV-2 Ab not detected.A test result that is nonreactive does not exclude thepossibility of exposure to or infection with HIV-1 and/orHIV-2. Nonreactive results in this assay for individualswith prior exposure to HIV-1 and/or HIV-2 may be due toantigen and antibody levels that are below the limit ofdetection of this assay.The [employer] HIV Ag/Ab Combo assay result andsupplemental assay results should be interpreted inconjunction with the patient's clinical presentation,history and other laboratory results. If the results areinconsistent with clinical evidence, additional testing issuggested to confirm the result. Blood Venous blood specimen / Unknown 11/16/2023 12:08 PM EDT 11/16/2023 12:08 PM EDT Sherri Navarro MD LAB BLOOD ORDERAB LES Final Result [facility] [address] [place] [address] [phone] from Last 3 Months or Most Recently Relevant to Health Maintenance Insurance [facility] ONE CARE < 65 Care Teams Sock Turner Relationship Specialty Start Date End Date Sherri Selby MD [address] [place] [phone] PCP - General Internal Medicine 02/02/23
--- OUTSIDE RECORDS SUMMARY | 2024-09-28 09:54 | XMS_ITS | Encounter Summary ---
Author Organization [employer] Address [address] [place] [address] 7 [place] [address] Care Team Providers Care Cell Feed Department Supervisor Name Role Phone Lorenza HodgeP Primary Care Provider +1- [phone] Sherri Selby MD Primary Care Pro vider Encounter Details Date Type Department Care Team (Late st Contact Info) Description 11/25/2022 Orders Only [facility] MEDICINE [address] [place] [phone] Lorenza Hodge [address] Dept [place] [address] Social History Tobacco Use Types Packs/Day Years [...] Description 10/10/2024 10:00 AM EDT Office Visit [facility] [address] [place] [address] [phone] Sherri Selby MD [address] [place] [address] [phone] documented as of this encounter Procedures Procedure Name Priority Date/Time Associated Diagnosis Comments US RENAL BI Routine 12/06/2022 1:54 PM EDT documented in this encounter Results * US RENAL BI (12/06/2022 1:54 PM EDT) Anatomical Region Laterality Modality Abdomen Ultrasound 12/06/2022 1:54 PM EDT Narrative 12/09/2022 6:44 PM EDT ? [facility] ?[address] ?[place] [address] ? Ultrasound Report ? Signed ? Patient: Inderjit Stoner ?MR ?? #: [id number] ? : 1960 ?Acct:[id number] ? Age/Sex: 62 / M ?ADM Date: 12/06/22 ? Loc: HO.US ? Attending Dr: Lorenza OCONNELL ? Ordering Physician: Lorenza Hodge ?? Date of Service: 12/06/22 ?? Procedure(s): US renal BI ?? Accession Number(s): [id number] ? cc: Lorenza Hodge ? EXAMINATION: ?? [...] 1841 ? DD/ 1354 ? TD/TT: ? Coupon Clerk: ? Procedure Note Donartemioter, Image - 12/09/2022 [place] [address] Ultrasound Report Signed Patient: Inderjit Stoner AMR #: [id number] : 1960cct:[id number] Age/Sex: 62 / MADM Date: 12/06/22 Loc: HO.US Attending Dr: Lorenza OCONNELL Ordering Physician: Lorenza Hodge Date of Service: 12/06/22 Procedure(s): US renal BI Accession Number(s): [id number] cc: Lorenza Hodge EXAMINATION: US RETROPERITONEAL LIMITED [...] in OV> 12/09/22 1841 DD/ 1354 TD/TT: Coupon Clerk: us Lorenza ROMEROP IMG US PROCEDURES Edited R esult - Final documented in this encounter Visit Diagnoses Not on filedocumented in this encounter Additional Health Concerns Assessment Noted Time PHQ-9 Depression Total Score: 16 08/10/ 023 9:09 AM EDT documented as of this encounter Care Teams Cell Feed Department Supervisor Relationship Specialty Start Date End Date Lorenza Hodge FNP PCP - General Family Medicine 04/05/22 02/01/23 Sherri Selby MD [address] [place] [phone] PCP - General Internal Medicine 02/02/23 documented as of this encounter
--- OUTSIDE RECORDS SUMMARY | 2024-09-28 09:54 | XMS_ITS | Clinical Summary ---
Author Organization [facility] Address [address] [place] [address] Phone Care Team Providers Care Automotive Sales Professional Name Role Phone Unavailable Primary Care Provider [...]
--- OUTSIDE RECORDS SUMMARY | 2024-09-28 09:54 | XMS_ITS | Encounter Summary ---
Author Organization [employer] Address [address] [facility] 7t [place] [address] Care Team Providers Care Brick Handler Name Role Phone Sherri Selby MD Primary Care Pro vider Reason for Visit * Reason Comments Med Refill Encounter Details Date Type Department Care Team ([facility] st Contact Info) Description 09/01/2024 Refill [facility] MED[facility]INE [address] [place] [address] Sherri Selby MD [address] [place], [place] [phone] Flank pain Social History Tobacco Use Types [...] Description 10/10/2024 10:00 AM EDT Office Visit [facility] MEDICINE [address] [place] [address] Sherri Selby MD [address] [place] [phone] documented as of this encounter Visit Diagnoses Diagnosis Flank pain Abdominal pain, unspecified site documented in this encounter Additional Health Concerns Assessment Noted Time PHQ-9 Depression Total Score: 7 08/18/19 25 9:01 AM EDT documented as of this encounter Care Teams Brick Handler Relationship Specialty Start Date End Date Sherri Selby MD [address] [place] [phone] PCP - General Internal Medicine 02/02/23 documented as of this encounter
== END 2024-09-28 09:36 | disposition home or self-care (01) ==
LOC: HO.HHCL 09:35
PROVIDERS: Visit Provider Student in an Organized Health Care Education/Training Program
DX: Z13.89 Encounter for screening for other disorder (principal)

== ENCOUNTER 2024-10-01 18:00 | Outpatient (REF) | payer OTHER, SELFPAY ==
--- OUTSIDE RECORDS SUMMARY | 2024-10-02 13:18 | XMS_ITS | Encounter Summary ---
Author Organization [employer] Address 75 [facility] 7 [place] [address] Care Team Providers Care Map Drafter Name Role Phone Sherri Selby MD Primary Care Pro vider Reason for Visit * Reason Comments Med Refill Encounter Details Date Type Department Care Team ([facility] st Contact Info) Description 09/01/2024 Refill [facility] MEDICINE [address] [place] [address] Sherri Selby MD [address] [place], [place] [phone] Flank pain Social History Tobacco Use Types [...] 10:00 AM EDT Office Visit [facility] MEDICINE [address] [place] [phone] Sherri Selby MD [address] [place] [phone] documented as of this encounter Visit Diagnoses Diagnosis Flank pain Abdominal pain, unspecified site documented in this encounter Additional Health Concerns Assessment Noted Time PHQ-9 Depression Total Score: 7 08/18/19 25 9:01 AM EDT documented as of this encounter Care Teams Map Drafter Relationship Specialty Start Date End Date Sherri Selby MD [address] [place] [phone] PCP - General Internal Medicine 02/02/23 documented as of this encounter
--- OUTSIDE RECORDS SUMMARY | 2024-10-02 13:18 | XMS_ITS | Encounter Summary ---
Author Organization [employer] Address 75 [facility] 7 [place] [address] Care Team Providers Care Curtain Stretcher Name Role Phone Sherri Selby MD Primary Care Pro vider Reason for Visit * Reason Onset Date Comments Results 05/05/2023 Encounter Details Date Type Department Care Team ([facility] st Contact Info) Description 05/05/2023 Telephone [facility] MEDICINE [address] [place], [place] [phone] Sherri Selby MD [address] [place] [address] Results Social History Tobacco Use Types Packs/Day [...] Miscellaneous Notes * Telephone Encounter - Linda Stvien - 05/05/2023 11:06 AM EST Tc from pt requesting MRI results of spine. Please contact pt at [phone] documented in this encounter Plan of Treatment Upcoming Encounters Date Type Department Care Team (Late st Contact Info) Description 10/10/2024 10:00 AM EDT Office Visit [facility] MEDICINE [address] [place] [phone] Sherri Selby MD [address] [place] [address] [phone] documented as of this encounter Visit Diagnoses Not on filedocumented in this encounter Additional Health Concerns Assessment Noted Time PHQ-9 Depression Total Score: 16 023 9:09 AM EDT documented as of this encounter Care Teams Curtain Stretcher Relationship Specialty Start Date End Date Sherri Selby MD [address] [place] [phone] PCP - General Internal Medicine 02/02/23 documented as of this encounter
--- OUTSIDE RECORDS SUMMARY | 2024-10-02 13:19 | XMS_ITS | Encounter Summary ---
Author Organization [employer] Address [address] [place] [address] [place] [address] Care Team Providers Care Bell Person Name Role Phone Lorenza Hodge [facility] Primary Care Provider [phone] Sherri Selby MD Primary Care Pro vider Encounter Details Date Type Department Care Team (Late st Contact Info) Description 11/25/2022 Orders Only [facility] MEDICINE [address] [place] [phone] Lorenza Hodge [address] Dept [place] [address] Social History Tobacco Use Types Packs/Day Years [...] Description 10/10/2024 10:00 AM EDT Office Visit [facility] MEDICINE [address] [place] [address] [phone] Sherri Selby MD [address] [place] [address] [phone] documented as of this encounter Procedures Procedure Name Priority Date/Time Associated Diagnosis Comments US RENAL BI Routine 12/06/2022 1:54 PM EDT documented in this encounter Results * US RENAL BI (12/06/2022 1:54 PM EDT) Anatomical Region Laterality Modality Abdomen Ultrasound 12/06/2022 1:54 PM EDT Narrative 12/09/2022 6:44 PM EDT ? [facility] ?[address] ?[place] [address] ? Ultrasound Report ? Signed ? Patient: Inderjit Stoner ?MR ?? #: [id number] ? : 1960 ?Acct:[id number] ? Age/Sex: 62 / M ?ADM Date: 12/06/22 ? Loc: HO.US ? Attending Dr: Lorenza OCONNELL ? Ordering Physician: Lorenza Hodge ?? Date of Service: 12/06/22 ?? Procedure(s): US renal BI ?? Accession Number(s): [id number] ? cc: Lorenza Hodge ? EXAMINATION: ?? [...] 1841 ? DD/ 1354 ? TD/TT: ? Supervisor Nurse: ? Procedure Note Donartemioter, Image - 12/09/2022 [place] [address] Ultrasound Report Signed Patient: Inderjit Stoner AMR #: [id number] : 1Acct:[id number] Age/Sex: 62 / MADM Date: 12/06/22 Loc: HO.US Attending Dr: Lorenza OCONNELL Ordering Physician: Lorenza Hodge Date of Service: 12/06/22 Procedure(s): US renal BI Accession Number(s): [id number] cc: Lorenza Hodge EXAMINATION: US RETROPERITONEAL LIMITED [...] in OV> 12/09/22 1841 DD/ 1354 TD/TT: Supervisor Nurse: us Lorenza Hodge [employer]PORT SECURITY SCREENER IMG US PROCEDURES Edited R esult - Final documented in this encounter Visit Diagnoses Not on filedocumented in this encounter Additional Health Concerns Assessment Noted Time PHQ-9 Depression Total Score: 16 023 9:09 AM EDT documented as of this encounter Care Teams Bell Person Relationship Specialty Start Date End Date Lorenza Hodge FNP PCP - General Family Medicine 04/05/22 02/01/23 Sherri Selby MD [address] [place] [phone] PCP - General Internal Medicine 02/02/23 documented as of this encounter
--- OUTSIDE RECORDS SUMMARY | 2024-10-02 13:19 | XMS_ITS | Clinical Summary ---
Author Organization [email or web address] Address [address] [facility] 7t [place] [address] Care Team Providers Care Cardiac Rehabilitation Specialist Name Role Phone Sherri Selby MD [...] 0.4 MG SL tabletIndicatio ns:Atherosclero sis of [place] coronary artery of [place] heart with stable angina pectoris (CMS/HCC) Place [...] DAILY NEEDED ANXIETY 4 Active sodium chloride ([place]) 0.65 % nasal spray Administer 1 spray [...] hemorrhoids and left sided diverticulosis Atherosclerosis of [place] co ronary artery of [place] heart with stable angina pectoris 08/10/2022 Overview (11/24/2022): Cardiac hx Chest pain continued SOB Leg swelling Assessment & Plan (11/24/2022 6:12 PM EDT): Try and locate Cards notes Check BNP F/u PRN Gastroesophageal reflux disease 06/14/2022 Migraine without aura and wi thout status migrainosus, not intractable 06/07/2022 Overview (02/02/2023): Care Managed by [facility] - Pt has chronic left congregation migraine. Injury to L congregation about 3 years ago. Last appt 04/28/22 [...] to locate records Gave pt card with [facility] Fax number and have all specialists fax records to this number Continue medications F/u PRN Nonintractable epilepsy with complex partial sei zures 06/07/2022 Overview (02/02/2023): Dyscognitive seizure disorder with episodes of blurry vision and passing out Care Managed by [facility] Last appt 04/28/22 Treating [...] to locate records Gave pt card with [facility] Fax number and have all specialists [...] intervention and Patient to reach out to [facility] team as needed Rule Out Diagnoses [...] Data 09/04/2024 10:30 AM EDT Clinical Support [facility] MEDICINE [address] [place] [address] April Bello RN Poor memory 09/04/2024 Travel 09/01/2024 Refill [facility] [address] [place] [address] Sherri Selby MD Flank pain 08/17/2024 9:00 AM EDT Office Visit [facility] MED[facility]INE [address] [place] [address] Sherri Selby MD Transaminitis (Primary Dx); Encounter for immunization; Dietary counseling; Exercise counseling; Severe episode of recurrent major depressive disorder, with psychotic features (CMS/HCC); 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); Atherosclerosis of [place] coronary artery of [place] heart with stable angina pectoris (CMS/HCC); Mixed hyperlipidemia; Health care maintenance; Poor memory; Carotid stenosis, asymptomatic, bilateral 08/17/2024 Travel 08/14/2024 Orders Only [facility] [address] [place] [address] Sherri Selby MD 08/14/2024 Orders Only [facility] [address] [place], [place] [phone] Aditi Tabor MD 08/13/2024 Telephone [facility] [address] [place] [address] Sherri Selby MD Prior Auth Prescription (Lidocaine patches) 08/13/2024 Telephone [facility] [address] [place] [address] Sherri Selby MD 08/13/2024 Refill [facility] [address] [place] [address] Mayelin Robin MD 08/06/2024 Telephone [facility] [address] [place] [address] Sherri Selby MD chart prep from Last [...] Description 10/10/2024 10:00 AM EDT Office Visit [facility] MED[facility]INE [address] [place] [address] Sherri Selby MD [address] [place], [place] [phone] Health Maintenance Due Date Last Done Comments [...] Specific Antigen 2.08 <0.05 - 4.0 ng/mL [facility] Comment:PSA methodology: Abb scout Healyty i ChemiluminescentMicroparticle Immunoassay (CMIA) 09/12/2024 3:17 PM EDT 09/12/2024 3:17 PM EDT us Generic External Data Provider LAB BLOOD ORDERAB LES Final Result Performing Organization Address [facility] Co de Phone Number [facility] [address] [place] [address] [phone] * (ABNORMAL) Basic Metabolic Panel (09/12/2024 3:17 PM EDT) Sodium 142 135 - 145 mmol/L [facility] Potassium 4.2 3.3 - 5.1 mmol/L [facility] Chloride 109(H) 96 - 108 mmol/L [facility] Carbon Dioxide 26 22 - 29 mmol/L [facility] Anion Gap 11(L) 12 - 20 [facility] Urea Nitrogen (BUN) 17(H) 9 - 16 mg/dL [facility] Creatinine, Serum 0.88 0.5 - 1.4 mg/dL [facility] Estimated Glomerular Filt Rate >60 [facility] Comment:Chronic Kidney Disea se: Estimated GFR < 60 mL/min/1.15v1Waqrcv Kidney Disease: Estimated GFR < 15 mL/min/1.73m2 Glucose 86 60 - 115 mg/dL [facility] Calcium 9.5 8.4 - 10.2 mg/dL [facility] 09/12/2024 3:17 PM EDT 09/12/2024 3:17 PM EDT us Generic External Data Provider LAB BLOOD ORDERAB LES Final Result Performing Organization Address [facility] Co de Phone Number [facility] [address] [place] [address] [phone] * Hemoglobin A1c (09/12/2024 7:47 AM EDT) Hemoglobin A1c 5.8 <6.0 % [facility] Comment:Hemoglobin A1C Refer ence Range Adults: 4.8 - 6.0 % Non diabetic: < 6.0 % Goal: < 7.0 %Additional Action Suggested: > 8.0 %Note: Hemoglobin A1c results are invalid for patients with abnormal amounts of HbF. Blood transfusions may impact the HbA1c concentration in the patient sample. Estimated Average Glucose 120 mg/dL [facility] Comment:eAG = Estimated ave rage glucose which is %A1C expressed asaverage glucose, using the formula of the Q7F-IbeksugWhsmprn Glucose study (ADAG), Diabetes Care, Vol.31,#8,Dec. 2007 Blood Venous blood specimen / Unknown 09/12/2024 7:47 AM EDT 09/12/2024 7:47 AM EDT us Sherri Navarro MD LAB BLOOD ORDERAB LES Final Result [facility] [address] [place] [phone] * Lipid Panel, Standard (09/12/2024 7:47 AM EDT) Triglycerides 137 <150 mg/dL [facility] Comment:Desirable Triglyceri de: less than 150 mg/dLBorderline High Triglyceride 150-199 mg/dLHigh Triglyceride: 200-499 mg/dLVery High Triglyceride: greater than or equal to 5OO mg/dL Cholesterol 150 <200 mg/dL [facility] Comment:Desirable Cholestero l: less than 200 mg/dLBorderline High Cholesterol: 200-239 mg/dLHigh Cholesterol: greater than 239 mg/dL LDL Cholesterol Calculated 80 <100 mg/dL [facility] Comment:Desirable LDL: less than 100 mg/dLNear Optimal/Above Optimal LDL: 110- 129 mg/dLBorderline High LDL: 130-159 mg/dLHigh LDL: 160-189 mg/dLVery High LDL: greater than or equal to 190 mg/dL HDL Cholesterol 43 >40 mg/dL [facility] Comment:Desirable HDL: great er than 40 mg/dL Note: This HDL assay may give artificially low results in patients with liver disease. Blood Venous blood specimen / Unknown 09/12/2024 7:47 AM EDT 09/12/2024 7:47 AM EDT Sherri Navarro MD LAB BLOOD ORDERAB LES Final Result [facility] [address] [place], [place] [phone] * (ABNORMAL) Comprehensive Metabolic Panel (09/12/2024 7:47 AM EDT) Sodium 142 135 - 145 mmol/L [facility] Potassium 4.3 3.3 - 5.1 mmol/L [facility] Chloride 109(H) 96 - 108 mmol/L [facility] Carbon Dioxide 26 22 - 29 mmol/L [facility] Anion Gap 11(L) 12 - 20 [facility] Urea Nitrogen (BUN) 15 9 - 16 mg/dL [facility] Creatinine, Serum 0.97 0.5 - 1.4 mg/dL [facility] Estimated Glomerular Filt Rate >60 [facility] Comment:Chronic Kidney Disea se: Estimated GFR < 60 mL/min/1.47o6Jqkrmh Kidney Disease: Estimated GFR < 15 mL/min/1.73m2 Glucose 98 60 - 115 mg/dL [facility] Calcium 9.4 8.4 - 10.2 mg/dL [facility] Bilirubin, Total 0.9 0.0 - 1.0 mg/dL [facility] Aspartate Amino Transferase 23 5 - 37 U/L [facility] Alanine Aminotransferase 46(H) 0 - 40 U/L [facility] Total Protein 7.0 6.5 - 8.0 g/dL [facility] Albumin Level 4.2 3.5 - 5.0 g/dL [facility] Alkaline Phosphatase 91 39 - 117 U/L [facility] Blood Venous blood specimen / Unknown 09/12/2024 7:47 AM EDT 09/12/2024 7:47 AM EDT us MeccaXiomara Navarro MD LAB BLOOD ORDERAB LES Final Result [facility] [address] [facility] [place] [phone] * US Abdomen Complete (08/30/2024 8:26 AM EDT) Anatomical Region Laterality Modality Abdomen Ultrasound 08/30/2024 8:26 AM EDT Narrative 08/30/2024 9:29 AM EDT ? [facility] ?[address] ?[place] [address] ? Ultrasound Report ? Signed ? Patient: Inderjit Stoner ?MR ?? #: [id number] ? : 1960 ?Acct:[id number] ? Age/Sex: 64 / M ?ADM Date: 08/30/24 ? Loc: HO.US ? Attending Dr: Sherri Navarro MD ? Ordering Physician: Sherri Selby MD ?? Date of Service: 08/30/24 ?? Procedure(s): US abdomen complete ?? Accession Number(s): [id number] ? cc: Sherri Selby MD ? EXAMINATION: [...] DD/ 0826 ? TD/TT: 08/30/24 0841 ? Crime Victim Specialist: ? Procedure Note Brooke, Image - 08/30/2024 [place] [address] Ultrasound Report Signed Patient: Inderjit Stoner [facility] #: [id number] : [id number]:[id number] Age/Sex: 64 / MADM Date: 08/30/24 Loc: HO.US Attending Dr: Sherri Navarro MD Ordering Physician: Sherri Selby MD Date of Service: 08/30/24 Procedure(s): US abdomen complete Accession Number(s): [id number] cc: Sherri Selby MD EXAMINATION: US ABDOMEN [...] OV> 08/30/2427 DD/ 08 TD/TT: 08/30/24 0841 Crime Victim Specialist: Sherri Navarro MD [facility] [place]EDURES Final Result * Fecal Globin by Immunochemistry (03/07/2024 12:00 AM EDT) Fecal Globin By Immunochemistry SEE NOTE [employer] [facility] Comment: ??FECAL GLOBIN BY IMMUNOCHEMISTRY ?Micro Number: ?[id number] ??Test Status: ? Final ??Specimen Source: ?? Insure (tm) fobt test card ??Specimen Quality: ??Adequate ??Fecal Globin: ?Not Detected 03/07/2024 03/15/2024 5:1 8 AM EDT Narrative [facility] - 03/15/2024 4:25 PM EDT FASTING: UNKNOWN [facility] External Provider LAB BODY FLUIDS AND STOOLS ORDERABLES Final Result [facility] [address] [facility], [place] [address] [employer] [facility] [address] [place] [phone] * Hepatitis C Antibody with Reflex to HCV, RNA, Quantitative, Real-Time PCR (11/16/2023 12:08 PM EDT) Hepatitis C Antibody Nonreactive Nonreactive [facility] Comment:Antibodies to HCV no t detected; does not exclude early acuteHCV infection. Blood Venous blood specimen / Unknown 11/16/2023 12:08 PM EDT 11/16/2023 12:08 PM EDT Sherri Navarro MD LAB BLOOD ORDERAB LES Final Result Performing Organization Address City/[facility]/ZIP Co de Phone Number [facility] [address] [place] [phone] * HIV-1/2 Antigen and Antibodies, Fourth Generation, with Reflexes (11/16/2023 12:08 PM EDT) HIV AB/AG Nonreactive Nonreactive [facility] Comment:HIV-1 p24 Ag and/or HIV-1/HIV-2 Ab not detected.A test result that is nonreactive does not exclude thepossibility of exposure to or infection with HIV-1 and/orHIV-2. Nonreactive results in this assay for individualswith prior exposure to HIV-1 and/or HIV-2 may be due toantigen and antibody levels that are below the limit ofdetection of this assay.The [employer] HIV Ag/Ab Combo assay result andsupplemental assay results should be interpreted inconjunction with the patient's clinical presentation,history and other laboratory results. If the results areinconsistent with clinical evidence, additional testing issuggested to confirm the result. Blood Venous blood specimen / Unknown 11/16/2023 12:08 PM EDT 11/16/2023 12:08 PM EDT us Sherri Navarro MD LAB BLOOD ORDERAB LES Final Result [facility] [address] [place] [phone] from Last 3 Months or Most Recently Relevant to Health Maintenance Insurance [facility]ARE < [address] [place] [id number] Care Teams Cardiac Rehabilitation Specialist Relationship Specialty Start Date End Date Sherri Selby MD [address] [place] [address] PCP - General Internal Medicine 02/02/23
--- OUTSIDE RECORDS SUMMARY | 2024-10-02 13:19 | XMS_ITS | Encounter Summary ---
Author Organization [employer] [facility] Address [address] [place] [address] [address] [place] [address] Care Team Providers Care Mesh Cutter Name Role Phone Funmi Easton MD Primary Care Provider Lorenza Stroud Primary Care Provider [phone]- [phone] Sherri Selby MD Primary Care Pro vider Encounter Details Date Type Department Care Team (Latest Contact Info) Description 05/02/2019 Abstract [facility] CONVERSIONS Dental, Provider, DDS Social History [...] Description 10/10/2024 10:00 AM EDT Office Visit [facility] MEDICINE [address] [place] [address] Sherri Selby MD [address] [place] [address] documented as of this encounter Visit Diagnoses Not on filedocumented in this encounter Care Teams Mesh Cutter Relationship Specialty Start Date End Date Funmi Easton MD PCP - General Family Medicine 03/20/19 04/04/22 Lorenza Hodge FNP PCP - General Family Medicine 04/05/22 02/01/23 Sherri Selby MD [address] [place] [address] PCP - General Internal Medicine 02/02/23 documented as of this encounter
--- OUTSIDE RECORDS SUMMARY | 2024-10-02 13:19 | XMS_ITS | Clinical Summary ---
Author Organization [facility] Address [address] [place] [address] Phone Care Team Providers Care Security Operations Engineer Name Role Phone Unavailable Primary Care Provider [...]
--- OUTSIDE RECORDS SUMMARY | 2024-10-02 13:19 | XMS_ITS | Encounter Summary ---
Author Organization [employer] Address [address] [facility] 7t [place] [address] Care Team Providers Care Upper Cutter Machine Name Role Phone Lorenza HodgeP Primary Care Provider [phone]- [phone] Sherri Selby MD Primary Care Pro vider Reason for Visit * Reason Onset Date Comments triage 06/11/2022 Encounter Details Date Type Department Care Team (Late st Contact Info) Description 06/11/2022 Telephone [facility] MEDICINE [address] [place] [phone] Lorenza Hodge FNP [address] [place] [address] Dept [place] [address] triage Social History Tobacco Use Types Packs/Day [...] on pt. Voice mail to call back [facility] nurses at [phone] or if emergent care needed to go [...] 10/10/2024 10:00 AM EDT Office Visit [facility] MEDICINE [address] [place] [address] Sherri Selby MD [address] [place] [address] documented as of this encounter Visit Diagnoses Not on filedocumented in this encounter Care Teams Upper Cutter Machine Relationship Specialty Start Date End Date Lorenza Hodge FNP PCP - General Family Medicine 04/05/22 02/01/23 Sherri Selby MD [address] [place] [phone] PCP - General Internal Medicine 02/02/23 documented as of this encounter
--- OUTSIDE RECORDS SUMMARY | 2024-10-02 13:19 | XMS_ITS | Encounter Summary ---
Author Organization [employer] [facility] Address [address] [place] [address] [address] [address] Care Team Providers Care Software Lead Name Role Phone Funmi Easton MD Primary Care Provider Lorenza Stroud Primary Care Provider +1- [phone] Sherri Selby MD Primary Care Pro vider Encounter Details Date Type Department Care Team (Latest Contact Info) Description 12/24/2021 Abstract [facility] CONVERSIONS Dental, Provider, DDS Social [...] Description 10/10/2024 10:00 AM EDT Office Visit [facility] MEDICINE [address] [place] [address] Sherri Selby MD [address] [place], [place] [phone] documented as of this encounter Visit Diagnoses Not on filedocumented in this encounter Care Teams Software Lead Relationship Specialty Start Date End Date Funmi Easton MD PCP - General Family Medicine 03/20/19 04/04/22 Lorenza Hodge FNP PCP - General Family Medicine 04/05/22 02/01/23 Sherri Selby MD [address] [place] [address] PCP - General Internal Medicine 02/02/23 documented as of this encounter
--- OUTSIDE RECORDS SUMMARY | 2024-10-02 13:19 | XMS_ITS | Encounter Summary ---
Author Organization [employer] [facility] Address [address] [place] [address] 7 [place] [address] Care Team Providers Care Desktop Publisher Name Role Phone Funmi Easton MD Primary Care Provider Lorenza Stroud Primary Care Provider +1- [phone] Sherri Selby MD Primary Care Pro vider Encounter Details Date Type Department Care Team (Latest Contact Info) Description 03/23/2021 Abstract [facility] CONVERSIONS Dental, Provider, DDS Social [...] Description 10/10/2024 10:00 AM EDT Office Visit [facility] MEDICINE [address] [place] [address] Sherri Selby MD [address] [place], [place] [phone] documented as of this encounter Visit Diagnoses Not on filedocumented in this encounter Care Teams Desktop Publisher Relationship Specialty Start Date End Date Funmi Easton MD PCP - General Family Medicine 03/20/19 04/04/22 Lorenza Hodge FNP PCP - General Family Medicine 04/05/22 02/01/23 Sherri Selby MD [address] [place] [address] PCP - General Internal Medicine 02/02/23 documented as of this encounter
== END 2024-10-01 18:01 | disposition home or self-care (01) ==
LOC: HO.HHCLNP 18:00
PROVIDERS: Visit Provider Student in an Organized Health Care Education/Training Program
DX: Z13.89 Encounter for screening for other disorder (principal)

== ENCOUNTER 2024-10-02 08:28 | Outpatient (REF) | payer OTHER, SELFPAY ==
--- OUTSIDE RECORDS SUMMARY | 2024-10-02 08:42 | XMS_ITS | Encounter Summary ---
Author Organization [employer] Address [address] [place] [address] [place] [address] Care Team Providers Care Membership Coordinator Name Role Phone Lorenza Hodge [facility] Primary Care Provider +1- [phone] Sherri Selby MD Primary Care Pro vider Encounter Details Date Type Department Care Team (Late st Contact Info) Description 11/25/2022 Orders Only [facility]ICINE [address] [place] [phone] Lorenza Hodge [address] Dept [place] [address] Social History Tobacco Use Types Packs/Day Years [...] Description 10/10/2024 10:00 AM EDT Office Visit [facility] [address] [place] [address] [phone] Sherri Selby MD [address] [place] [address] [phone] documented as of this encounter Procedures Procedure Name Priority Date/Time Associated Diagnosis Comments US RENAL BI Routine 12/06/2022 1:54 PM EDT documented in this encounter Results * US RENAL BI (12/06/2022 1:54 PM EDT) Anatomical Region Laterality Modality Abdomen Ultrasound 12/06/2022 1:54 PM EDT Narrative 12/09/2022 6:44 PM EDT ? [facility] ?[address] ?[place] [address] ? Ultrasound Report ? Signed ? Patient: Inderjit Stoner ?MR ?? #: [id number] ? : 1960 ?Acct:[id number] ? Age/Sex: 62 / M ?ADM Date: 12/06/22 ? Loc: HO.US ? Attending Dr: Lorenza OCONNELL ? Ordering Physician: Lorenza Hodge ?? Date of Service: 12/06/22 ?? Procedure(s): US renal BI ?? Accession Number(s): [id number] ? cc: Lorenza Hodge ? EXAMINATION: ?? [...] 1841 ? DD/ 1354 ? TD/TT: ? Honing Machine Operator Production: ? Procedure Note Donartemioter, Image - 12/09/2022 [place] [address] Ultrasound Report Signed Patient: Inderjit Stoner AMR #: [id number] : 1Acct:[id number] Age/Sex: 62 / MADM Date: 12/06/22 Loc: HO.US Attending Dr: Lorenza OCONNELL Ordering Physician: Lorenza Hodge Date of Service: 12/06/22 Procedure(s): US renal BI Accession Number(s): [id number] cc: Lorenza Hodge EXAMINATION: US RETROPERITONEAL LIMITED [...] in OV> 12/09/22 1841 DD/ 1354 TD/TT: Honing Machine Operator Production: us Lorenza Hodge YOUTH COORDINATOR IMG US PROCEDURES Edited R esult - Final documented in this encounter Visit Diagnoses Not on filedocumented in this encounter Additional Health Concerns Assessment Noted Time PHQ-9 Depression Total Score: 16 023 9:09 AM EDT documented as of this encounter Care Teams Membership Coordinator Relationship Specialty Start Date End Date Lorenza Hodge FNP PCP - General Family Medicine 04/05/22 02/01/23 Sherri Selby MD [address] [place] [phone] PCP - General Internal Medicine 02/02/23 documented as of this encounter
--- OUTSIDE RECORDS SUMMARY | 2024-10-02 08:42 | XMS_ITS | Encounter Summary ---
Author Organization [employer] Address [address] [facility] 7t [place] [address] Care Team Providers Care Lettuce Trimmer Name Role Phone Lorenza HodgeP Primary Care Provider +1- [phone] Sherri Selby MD Primary Care Pro vider Reason for Visit * Reason Onset Date Comments triage 06/11/2022 Encounter Details Date Type Department Care Team (Late st Contact Info) Description 06/11/2022 Telephone [facility] MEDICINE [address] [place] [phone] Lorenza Hodge FNP [address] [place] [address] Dept [place] [address] triage Social History Tobacco Use Types Packs/Day [...] on pt. Voice mail to call back [facility] nurses at [phone] or if emergent care needed to go [...] Description 10/10/2024 10:00 AM EDT Office Visit [facility] MEDICINE [address] [place] [phone] Sherri Selby MD [address] [place] [phone] documented as of this encounter Visit Diagnoses Not on filedocumented in this encounter Care Teams Lettuce Trimmer Relationship Specialty Start Date End Date Lorenza Hodge FNP PCP - General Family Medicine 04/05/22 02/01/23 Sherri Selby MD [address] [place] [address] [phone] PCP - General Internal Medicine 02/02/23 documented as of this encounter
--- OUTSIDE RECORDS SUMMARY | 2024-10-02 08:42 | XMS_ITS | Encounter Summary ---
Author Organization [facility] Address [address] [place] [address] [place] [address] Care Team Providers Care Shearing Supervisor Name Role Phone Funmi Easton MD Primary Care Provider Lorenza Stroud Primary Care Provider +1- [phone] Sherri Selby MD Primary Care Pro vider Encounter Details Date Type Department Care Team (Latest Contact Info) Description 12/24/2021 Abstract [facility] CONVERSIONS Dental, Provider, DDS Social History [...] Description 10/10/2024 10:00 AM EDT Office Visit [facility] MEDICINE [address] [place] [address] Sherri Selby MD [address] [place], [place] [phone] documented as of this encounter Visit Diagnoses Not on filedocumented in this encounter Care Teams Shearing Supervisor Relationship Specialty Start Date End Date Funmi Easton MD PCP - General Family Medicine 03/20/19 04/04/22 Lorenza Hodge FNP PCP - General Family Medicine 04/05/22 02/01/23 Sherri Selby MD [address] [place] [address] PCP - General Internal Medicine 02/02/23 documented as of this encounter
--- OUTSIDE RECORDS SUMMARY | 2024-10-02 08:42 | XMS_ITS | Encounter Summary ---
Author Organization [employer] Address [address] [facility] 7 [place] [address] Care Team Providers Care Contract Clerk Name Role Phone Sherri Selby MD Primary Care Pro vider Reason for Visit * Reason Comments Med Refill Encounter Details Date Type Department Care Team ([facility] st Contact Info) Description 09/01/2024 Refill [facility] MEDICINE [address] [place] [address] Sherri Selby MD [address] [place], [place] [phone] Flank pain Social History Tobacco Use Types [...] Description 10/10/2024 10:00 AM EDT Office Visit [facility] MEDICINE [address] [place] [phone] Sherri Selby MD [address] [place] [phone] documented as of this encounter Visit Diagnoses Diagnosis Flank pain Abdominal pain, unspecified site documented in this encounter Additional Health Concerns Assessment Noted Time PHQ-9 Depression Total Score: 7 08/18/19 25 9:01 AM EDT documented as of this encounter Care Teams Contract Clerk Relationship Specialty Start Date End Date Sherri Selby MD [address] [place] [address] PCP - General Internal Medicine 02/02/23 documented as of this encounter
--- OUTSIDE RECORDS SUMMARY | 2024-10-02 08:42 | XMS_ITS | Encounter Summary ---
Author Organization [facility] Address [address] [place] [address] [facility] [place] [address] Care Team Providers Care Physicist Nuclear Name Role Phone Funmi Easton MD Primary Care Provider Lorenza Stroud Primary Care Provider +- [phone] Sherri Selby MD Primary Care Pro vider Encounter Details Date Type Department Care Team (Latest Contact Info) Description 05/02/2019 Abstract [facility] CONVERSIONS Dental, Provider, DDS Social History Tobacco [...] Visit [facility] MEDICINE [address] [place] [address] Sherri Selby MD [address] [place] [address] documented as of this encounter Visit Diagnoses Not on filedocumented in this encounter Care Teams Physicist Nuclear Relationship Specialty Start Date End Date Funmi Easton MD PCP - General Family Medicine 03/20/19 04/04/22 Lorenza Hodge FNP PCP - General Family Medicine 04/05/22 02/01/23 Sherri Selby MD [address] [place] [phone] PCP - General Internal Medicine 02/02/23 documented as of this encounter
--- OUTSIDE RECORDS SUMMARY | 2024-10-02 08:42 | XMS_ITS | Encounter Summary ---
Author Organization [email or web address] [facility] Address [address] [place] [address] 7 [place] [address] Care Team Providers Care Program Support Clerk Name Role Phone Funmi Easton MD Primary Care Provider Lorenza Stroud Primary Care Provider +1- [phone] Sherri Selby MD Primary Care Pro vider Encounter Details Date Type Department Care Team (Latest Contact Info) Description 03/23/2021 Abstract [facility] CONVERSIONS Dental, Provider, DDS Social History [...] Description 10/10/2024 10:00 AM EDT Office Visit [facility] MEDICINE [address] [place] [address] Sherri Selby MD [address] [place], [place] [phone] documented as of this encounter Visit Diagnoses Not on filedocumented in this encounter Care Teams Program Support Clerk Relationship Specialty Start Date End Date Funmi Easton MD PCP - General Family Medicine 03/20/19 04/04/22 Lorenza Hodge FNP PCP - General Family Medicine 04/05/22 02/01/23 Sherri Selby MD [address] [place] [address] PCP - General Internal Medicine 02/02/23 documented as of this encounter
--- OUTSIDE RECORDS SUMMARY | 2024-10-02 08:42 | XMS_ITS | Encounter Summary ---
Author Organization [employer] Address 75 [facility] 7 [place] [address] Care Team Providers Care Typing Checker Name Role Phone Sherri Selby MD Primary Care Pro vider Reason for Visit * Reason Onset Date Comments Results 05/05/2023 Encounter Details Date Type Department Care Team ([facility] st Contact Info) Description 05/05/2023 Telephone [facility] MEDICINE [address] [place], [place] [phone] Sherri Selby MD 230 [place] [address] Results Social History Tobacco Use Types Packs/Day [...] results of spine. Please contact pt at [phone] documented in this encounter Plan of Treatment Upcoming Encounters Date Type Department Care Team (Late st Contact Info) Description 10/10/2024 10:00 AM EDT Office Visit [facility] MEDICINE [address] [place] [phone] Sherri Selby MD [address] [place] [address] [phone] documented as of this encounter Visit Diagnoses Not on filedocumented in this encounter Additional Health Concerns Assessment Noted Time PHQ-9 Depression Total Score: 16 023 9:09 AM EDT documented as of this encounter Care Teams Typing Checker Relationship Specialty Start Date End Date Sherri Selby MD [address] [place] [phone] PCP - General Internal Medicine 02/02/23 documented as of this encounter
--- OUTSIDE RECORDS SUMMARY | 2024-10-02 08:42 | XMS_ITS | Clinical Summary ---
Author Organization [employer] Address 75 [facility] 7t [place] [address] Care Team Providers Care Admissions Gate Attendant Name Role Phone Sherri Selby MD Primary [...] 0.4 MG SL tabletIndicatio ns:Atherosclero sis of [place] coronary artery of [place] heart with stable angina pectoris (CMS/HCC) Place [...] DAILY NEEDED ANXIETY 4 Active sodium chloride (Rowan) 0.65 % nasal spray Administer 1 spray [...] hemorrhoids and left sided diverticulosis Atherosclerosis of [place] co ronary artery of [place] heart with stable angina pectoris 08/10/2022 Overview (11/24/2022): Cardiac hx Chest pain continued SOB Leg swelling Assessment & Plan (11/24/2022 6:12 PM EDT): Try and locate Cards notes Check BNP F/u PRN Gastroesophageal reflux disease 06/14/2022 Migraine without aura and wi thout status migrainosus, not intractable 06/07/2022 Overview (02/02/2023): Care Managed by [facility] - Pt has chronic left lutheran migraine. Injury to L lutheran about 3 years ago. 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 [address] April Bello RN Poor memory 09/04/2024 Travel 09/01/2024 Refill [facility] MEDICINE [address] [place] [address] Sherri Selby MD Flank pain 08/17/2024 9:00 AM EDT Office Visit [facility] MEDICINE [address] [place] [address] Sherri Selby MD Transaminitis (Primary Dx); Encounter for immunization; Dietary counseling; Exercise counseling; Severe episode of recurrent major depressive disorder, with psychotic features (CMS/HCC); 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); Atherosclerosis of king island coronary artery of [place] heart with stable angina pectoris (CMS/HCC); Mixed hyperlipidemia; Health care maintenance; Poor memory; Carotid stenosis, asymptomatic, bilateral 08/17/2024 Travel 08/14/2024 Orders Only [facility] MEDICINE [address] [place] [address] Sherri Selby MD 08/14/2024 Orders Only [facility] [address] [place], [place] [phone] Aditi Tabor MD 08/13/2024 Telephone [facility] MEDICINE [address] [place] [address] Sherri Selby MD Prior Auth Prescription (Lidocaine patches) 08/13/2024 Telephone [facility] MEDICINE [address] [place] [address] Sherri Selby MD 08/13/2024 Refill [facility] [address] [place] [address] Mayelin Robin MD 08/06/2024 Telephone [facility] MEDICINE [address] [place] [address] Sherri Selby MD chart prep from Last 3 Months Immunizations Immunization Administration Dates Next Due Hep B, adult 08/17/2024,01/10/2024,12/07/2023 Influenza Injectable Quadriv alant Preservative Free IIV4 MDCK 03/14/2020 Influenza injectable quadriv alent preservative free 02/09/2022,06/02/2021 Influenza, IIV3, injectable 04/15/2014 Influenza, Split (incl. carl fied surface antigen) 01/20/2015 Influenza, seasonal, injecta ble, preservative free 03/02/2024 Pfizer Covid-19 Vaccine 12+ 03/02/2024, RSV Bivalent 01/10/2024 Td (adult), 5 Lf [...] Description 10/10/2024 10:00 AM EDT Office Visit [facility] MEDICINE [address] [place] [phone] Sherri Selby MD [address] [place], [place] [phone] Health Maintenance Due Date Last Done Comments [...] 08/17/2025 08/17/2024 Depression Screening 08/17/2025 08/17/2024, 08/18/19 Disability Screening 08/17/2025 08/17/2024 SDOH Screening 08/17/2025 08/17/2024 Tobacco Screening 08/17/2025 [...] Specific Antigen 2.08 <0.05 - 4.0 ng/mL [facility] Comment:PSA methodology: Abb scout Healyty i ChemiluminescentMicroparticle Immunoassay (CMIA) 09/12/2024 3:17 PM EDT 09/12/2024 3:17 PM EDT us Generic External Data Provider LAB BLOOD ORDERAB LES Final Result Performing Organization Address [facility] Co de Phone Number [facility] [address] [place] [address] [phone] * (ABNORMAL) Basic Metabolic Panel (09/12/2024 3:17 PM EDT) Sodium 142 135 - 145 mmol/L [facility] Potassium 4.2 3.3 - 5.1 mmol/L [facility] Chloride 109(H) 96 - 108 mmol/L [facility] Carbon Dioxide 26 22 - 29 mmol/L [facility] Anion Gap 11(L) 12 - 20 [facility] Urea Nitrogen (BUN) 17(H) 9 - 16 mg/dL [facility] Creatinine, Serum 0.88 0.5 - 1.4 mg/dL [facility] Estimated Glomerular Filt Rate >60 [facility] Comment:Chronic Kidney Disea se: Estimated GFR < 60 mL/min/1.18b6Rsibde Kidney Disease: Estimated GFR < 15 mL/min/1.73m2 Glucose 86 60 - 115 mg/dL [facility] Calcium 9.5 8.4 - 10.2 mg/dL [facility] 09/12/2024 3:17 PM EDT 09/12/2024 3:17 PM EDT us Generic External Data Provider LAB BLOOD ORDERAB LES Final Result Performing Organization Address [facility] Co de Phone Number [facility] [address] [place] [phone] [phone] * Hemoglobin A1c (09/12/2024 7:47 AM EDT) Hemoglobin A1c 5.8 <6.0 % [facility] Comment:Hemoglobin A1C Refer ence Range Adults: 4.8 - 6.0 % Non diabetic: < 6.0 % Goal: < 7.0 %Additional Action Suggested: > 8.0 %Note: Hemoglobin A1c results are invalid for patients with abnormal amounts of HbF. Blood transfusions may impact the HbA1c concentration in the patient sample. Estimated Average Glucose 120 mg/dL [facility] Comment:eAG = Estimated ave rage glucose which is %A1C expressed asaverage glucose, using the formula of the I6N-[id number] Glucose study (ADAG), Diabetes Care, Vol.31,#8,Dec. 2007 Blood Venous blood specimen / Unknown 09/12/2024 7:47 AM EDT 09/12/2024 7:47 AM EDT us Sherri Navarro MD LAB BLOOD ORDERAB LES Final Result [facility] [address] [place] [phone] * Lipid Panel, Standard (09/12/2024 7:47 AM EDT) Triglycerides 137 <150 mg/dL [facility] Comment:Desirable Triglyceri de: less than 150 mg/dLBorderline High Triglyceride 150-199 mg/dLHigh Triglyceride: 200-499 mg/dLVery High Triglyceride: greater than or equal to 5OO mg/dL Cholesterol 150 <200 mg/dL [facility] Comment:Desirable Cholestero l: less than 200 mg/dLBorderline High Cholesterol: 200-239 mg/dLHigh Cholesterol: greater than 239 mg/dL LDL Cholesterol Calculated 80 <100 mg/dL [facility] Comment:Desirable LDL: less than 100 mg/dLNear Optimal/Above Optimal LDL: 110- 129 mg/dLBorderline High LDL: 130-159 mg/dLHigh LDL: 160-189 mg/dLVery High LDL: greater than or equal to 190 mg/dL HDL Cholesterol 43 >40 mg/dL [facility] Comment:Desirable HDL: great er than 40 mg/dL Note: This HDL assay may give artificially low results in patients with liver disease. Blood Venous blood specimen / Unknown 09/12/2024 7:47 AM EDT 09/12/2024 7:47 AM EDT Sherri Navarro MD LAB BLOOD ORDERAB LES Final Result [facility] [address] [place], [place] [phone] * (ABNORMAL) Comprehensive Metabolic Panel (09/12/2024 7:47 AM EDT) Sodium 142 135 - 145 mmol/L [facility] Potassium 4.3 3.3 - 5.1 mmol/L [facility] Chloride 109(H) 96 - 108 mmol/L [facility] Carbon Dioxide 26 22 - 29 mmol/L [facility] Anion Gap 11(L) 12 - 20 [facility] Urea Nitrogen (BUN) 15 9 - 16 mg/dL [facility] Creatinine, Serum 0.97 0.5 - 1.4 mg/dL [facility] Estimated Glomerular Filt Rate >60 [facility] Comment:Chronic Kidney Disea se: Estimated GFR < 60 mL/min/1.17v1Emgzzd Kidney Disease: Estimated GFR < 15 mL/min/1.73m2 Glucose 98 60 - 115 mg/dL [facility] Calcium 9.4 8.4 - 10.2 mg/dL [facility] Bilirubin, Total 0.9 0.0 - 1.0 mg/dL [facility] Aspartate Amino Transferase 23 5 - 37 U/L [facility] Alanine Aminotransferase 46(H) 0 - 40 U/L [facility] Total Protein 7.0 6.5 - 8.0 g/dL [facility] Albumin Level 4.2 3.5 - 5.0 g/dL [facility] Alkaline Phosphatase 91 39 - 117 U/L [facility] Blood Venous blood specimen / Unknown 09/12/2024 7:47 AM EDT 09/12/2024 7:47 AM EDT us MeccaXiomara Navarro MD LAB BLOOD ORDERAB LES Final Result [facility] [address] [facility] [place] [address] [phone] * US Abdomen Complete (08/30/2024 8:26 AM EDT) Anatomical Region Laterality Modality Abdomen Ultrasound 08/30/2024 8:26 AM EDT Narrative 08/30/2024 9:29 AM EDT ? [facility] ?[address] ?[place] [address] ? Ultrasound Report ? Signed ? Patient: Inderjit Stoner ?MR ?? #: [id number] ? : 1960 ?Acct:[id number] ? Age/Sex: 64 / M ?ADM Date: 08/30/24 ? Loc: HO.US ? Attending Dr: Sherri Navarro MD ? Ordering Physician: Sherri Selby MD ?? Date of Service: 08/30/24 ?? Procedure(s): US abdomen complete ?? Accession Number(s): [id number] ? cc: Sherri Selby MD ? EXAMINATION: [...] DD/ 0826 ? TD/TT: 08/30/24 0841 ? Journal Clerk: ? Procedure Note Brooke, Image - 08/30/2024 [place] [address] Ultrasound Report Signed Patient: Inderjit Stoner AMR #: [id number] : 1960cct:[id number] Age/Sex: 64 / MADM Date: 08/30/24 Loc: HO.US Attending Dr: Sherri Navarro MD Ordering Physician: Sherri Selby MD Date of Service: 08/30/24 Procedure(s): US abdomen complete Accession Number(s): [id number] cc: Sherri Selby MD EXAMINATION: US ABDOMEN [...] signed by Carlton Raya MD in OV> 08/30/2427 DD/ 08 TD/TT: 08/30/24 0841 Journal Clerk: Sherri Navarro MD [facility] US PROCEDURES Final Result * Fecal Globin by Immunochemistry (03/07/2024 12:00 AM EDT) Fecal Globin By Immunochemistry SEE NOTE [email or web address] [facility] Comment: ??FECAL GLOBIN BY IMMUNOCHEMISTRY ?Micro Number: ?[id number] ??Test Status: ? Final ??Specimen Source: ?? Insure (tm) fobt test card ??Specimen Quality: ??Adequate ??Fecal Globin: ?Not Detected 03/07/2024 03/15/2024 5:1 8 AM EDT Narrative [facility] - 03/15/2024 4:25 PM EDT FASTING: UNKNOWN [facility] External Provider LAB BODY FLUIDS AND STOOLS ORDERABLES Final Result [facility] [address] [facility], [place] [address] [email or web address] [facility] [address] [place] [phone] * Hepatitis C Antibody with Reflex to HCV, RNA, Quantitative, Real-Time PCR (11/16/2023 12:08 PM EDT) Hepatitis C Antibody Nonreactive Nonreactive [facility] Comment:Antibodies to HCV no t detected; does not exclude early acuteHCV infection. Blood Venous blood specimen / Unknown 11/16/2023 12:08 PM EDT 11/16/2023 12:08 PM EDT Sherri Navarro MD LAB BLOOD ORDERAB LES Final Result Performing Organization Address City/[facility]/ZIP Co de Phone Number [facility] [address] [place] [phone] * HIV-1/2 Antigen and Antibodies, Fourth Generation, with Reflexes (11/16/2023 12:08 PM EDT) HIV AB/AG Nonreactive Nonreactive [facility] Comment:HIV-1 p24 Ag and/or HIV-1/HIV-2 Ab not detected.A test result that is nonreactive does not exclude thepossibility of exposure to or infection with HIV-1 and/orHIV-2. Nonreactive results in this assay for individualswith prior exposure to HIV-1 and/or HIV-2 may be due toantigen and antibody levels that are below the limit ofdetection of this assay.The [employer] HIV Ag/Ab Combo assay result andsupplemental assay results should be interpreted inconjunction with the patient's clinical presentation,history and other laboratory results. If the results areinconsistent with clinical evidence, additional testing issuggested to confirm the result. Blood Venous blood specimen / Unknown 11/16/2023 12:08 PM EDT 11/16/2023 12:08 PM EDT us Sherri Navarro MD LAB BLOOD ORDERAB LES Final Result [facility] [address] [place] [phone] [phone] from Last 3 Months or Most Recently Relevant to Health Maintenance Insurance [facility] ONE CARE < [address] [place] [id number] Care Teams Admissions Gate Attendant Relationship Specialty Start Date End Date Sherri Selby MD [address] [place] [phone] PCP - General Internal Medicine 02/02/23
--- OUTSIDE RECORDS SUMMARY | 2024-10-02 08:42 | XMS_ITS | Clinical Summary ---
Author Organization [facility] Address [address] [place] [phone] Phone Care Team Providers Care Log Cut Off Sawyer Name Role Phone Unavailable Primary Care Provider [...]
[2024-10-05 11:49] LABS: PEU-Protein Creat Ratio Rand 0.058 (0.025-0.148); PEU-Rand. Prot/Creat Ratio 58 mg/g creat (25-148); PEU-Random Ur. Gamma Globulin 0 %; PEU-Random Urine A1 Globulin 0 %; PEU-Random Urine A2 Globulin 0 %; PEU-Random Urine Albumin 100 %; PEU-Random Urine Beta Globulin 0 %; PEU-Random Urine Creatinine 104 mg/dL (20-320); PEU-Random Urine Protein 6 mg/dL (5-25)
== END 2024-10-02 08:29 | disposition home or self-care (01) ==
LOC: HO.HHCL 08:28
PROVIDERS: Visit Provider Student in an Organized Health Care Education/Training Program
DX: R42 Dizziness and giddiness (principal)
CPT/HCPCS: 82570; 84156; 84166

== ENCOUNTER 2024-10-27 14:25 | Outpatient (REF) | payer OTHER, SELFPAY ==
--- NOTE | ~2024-10-27 | MR_ITS ---
EXAMINATION: MR BRAIN WITHOUT CONTRAST CLINICAL INFORMATION: Worsening memory. Balance problems. COMPARISON: Correlated to CT brain and CT angiogram brain dated May 31, 2024. TECHNIQUE: MRI of the brain was obtained using routine sequences without contrast. FINDINGS: No restricted diffusion. Focal susceptibility signal in the body of the right cingulate gyrus. No acute intracranial hemorrhage, mass effect, midline shift, hydrocephalus or herniation. Salas-white matter differentiation is normal. Posterior cranial fossa contents demonstrated no signal abnormality mass effect. Flow-void signal within the main vessels is normal. Sellar/suprasellar region demonstrated no signal abnormality or masses. Craniocervical junction demonstrates normal position of the cerebellar tonsils Decreased AP diameter of the cranium.. MR/MR head/brain wo con IMPRESSION: No acute stroke or acute brain abnormality. 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 Plagiocephaly. Electronically signed by: Blu Farrell MD 10/29/2024 08:54 AM EDT
== END 2024-10-27 14:26 | disposition home or self-care (01) ==
LOC: HO.MRI 14:25
PROVIDERS: PCP Student in an Organized Health Care Education/Training Program; Visit Provider Student in an Organized Health Care Education/Training Program
DX: R41.3 Other amnesia (principal)
CPT/HCPCS: 70551

== ENCOUNTER → 2024-10-27 14:32 | Outpatient (BNV) | payer OTHER, SELFPAY | PROVIDERS: PCP Student in an Organized Health Care Education/Training Program; Visit Provider Radiology Diagnostic Radiology | DX: R90.89 Other abnormal findings on diagnostic imaging of central nervous system (principal) | CPT/HCPCS: 70551 ==

== ENCOUNTER 2024-11-01 13:00 | Outpatient (REF) | payer OTHER, SELFPAY ==
--- OUTSIDE RECORDS SUMMARY | 2024-11-01 14:08 | XMS_ITS | Encounter Summary ---
Author Organization [employer] Address [address] [facility] 7 [place] [address] Care Team Providers Care Senior Contracts Manager Name Role Phone Sherri Selby MD Primary Care Pro vider Reason for Visit * Reason Onset Date Comments Results 05/05/2023 Encounter Details Date Type Department Care Team ([facility] st Contact Info) Description 05/05/2023 Telephone [facility] MEDICINE [address] [place], [place] [phone] Sherri Selby MD [address] [place] [address] Results Social History Tobacco Use Types Packs/Day [...] results of spine. Please contact pt at [phone] documented in this encounter Plan of Treatment Upcoming Encounters Date Type Department Care Team (Late st Contact Info) Description 11/22/2024 10:00 AM EDT Office Visit [facility] ADULT DENTAL [address] [place] [address] Jeremías Teixeira DDS [address] [place] [address] 12/25/2024 10:00 AM EDT Office Visit [facility] MEDICINE [address] [place] [address] Sherri Selby MD [address] [place] [phone] documented as of this encounter Visit Diagnoses Not on filedocumented in this encounter Additional Health Concerns Assessment Noted Time PHQ-9 Depression Total Score: 16 023 9:09 AM EDT documented as of this encounter Care Teams Senior Contracts Manager Relationship Specialty Start Date End Date Sherri Selby MD [address] [place] [address] PCP - General Internal Medicine 02/02/23 documented as of this encounter
[2024-11-01 14:42] LABS: Vitamin B12 408 pg/mL (200-900)
== END 2024-11-01 13:01 | disposition home or self-care (01) ==
LOC: HO.LAB 13:00
PROVIDERS: PCP Student in an Organized Health Care Education/Training Program; Visit Provider Psychiatry & Neurology Neurology
DX: G31.84 Mild cognitive impairment of uncertain or unknown etiology (principal)
CPT/HCPCS: 36415; 82607

== ENCOUNTER 2025-01-10 09:11 | Outpatient (REF) | payer OTHER, SELFPAY ==
--- NOTE | 2025-01-10 09:29 | ECG_ITS ---
Test Reason : peop Blood Pressure : */* mmHG Vent. Rate : 61 BPM Atrial Rate : 61 BPM P-R Int : 148 ms QRS Dur : 90 ms QT Int : 398 ms P-R-T Axes : 50 10 22 degrees QTcB Int : 400 ms Normal sinus rhythm Normal ECG When compared with ECG of 31-May-2024 13:40, No significant change was found Referred By: Luis Robles Electronically Signed By: SELVIN ARAIZA
--- OUTSIDE RECORDS SUMMARY | 2025-01-10 10:12 | XMS_ITS | Encounter Summary ---
Author Organization [employer] Address [address] [facility] [address] 7t [place] [address] Care Team Providers Care Chlorobutadiene Scrubber Operator Name Role Phone Sherri Selby MD Primary Care Pro vider Liane Alfred MD Unavailable Holly Araujo NP Unavailable Shefali Delgado MD Unavailable [phone] Reason for Visit * Reason Comments Med Refill Encounter Details Date Type Department Care Team (Late st Contact Info) Description 01/07/2025 Refill [facility] MED & PEDS [address] [place], [place] [phone] Mayelin Robin MD [address] [place] [address] TIA (transient ischemic attack) Social History Tobacco [...] Care Team (Late st Contact Info) Description 02/28/2025 2:45 PM EDT Office Visit [facility] MEDICINE [address] [place] [address] Sherri Selby MD [address] [place] [address] 04/24/2025 3:30 PM EST Office Visit [facility] OPTOMETRY [address] [place] [address] Mitali Kirby, OD [address] [place] [address] documented as of this encounter Visit Diagnoses Diagnosis TIA (transient ischemic attack) Unspecified transient cerebral ischemia documented in this encounter Additional Health Concerns Assessment Noted Time PHQ-9 Depression Total Score: 7 08/18/19 25 9:01 AM EDT documented as of this encounter Care Teams Chlorobutadiene Scrubber Operator Relationship Specialty Start Date End Date Sherri Selby MD [address] [place] [address] PCP - General Internal Medicine 02/02/23 Liane Alfred MD [address] [place] [address] [place] [address] Neurology 12/25/24 Holly Araujo NP [address] [place] [address] Urology 12/25/24 Shefali Delgado MD [address] [place] [address] Hematology and Oncology 12/25/24 [facility] [address] [facility] [address] [phone] (Fax) 12/25/24 Pain Management ([facility]) [address] [facility] 2nd Floor [address] [facility] [address] 12/25/24 documented as of this encounter
--- OUTSIDE RECORDS SUMMARY | 2025-01-10 10:12 | XMS_ITS ---
Author Name [facility] Organization Unknown Encounters Encounter Type Encounter Reason Primary Diagnosis Location Date Emergency testicular pain testicular pain [facility] 06/16/2022 Care Team Organization Name Specialty Phone Email Start Date End Da [facility] 06/16/2022 0 06/16/2022 [facility] 06/16
--- OUTSIDE RECORDS SUMMARY | 2025-01-10 10:12 | XMS_ITS | Encounter Summary ---
Author Organization [employer] Address [address] [place] [address] 7t [place] [address] Care Team Providers Care Binder Sorter Name Role Phone Funmi Easton MD Primary Care Provider Lorenza Stroud Primary Care Provider Sherri Leyva MD Primary Care Pro vider Liane Alfred MD Unavailable Holly Araujo NP Unavailable Shefali Delgado MD Unavailable [phone] Encounter Details Date Type Department Care Team (Latest Contact Info) Description 03/23/2021 Abstract [facility] CONVERSIONS Dental, Provider, DDS Social [...] Description 02/28/2025 2:45 PM EDT Office Visit [facility] MEDICINE [address] [place], [place] [phone] Sherri Selby MD [address] [place], [place] [phone] 04/24/2025 3:30 PM EST Office Visit [facility] OPTOMETRY [address] [place], [place] [phone] Mitali Kirby, OD [address] [place] [address] documented as of this encounter Visit Diagnoses Not on filedocumented in this encounter Care Teams Binder Sorter Relationship Specialty Start Date End Date Funmi Easton MD PCP - General Family Medicine 03/20/19 04/04/22 Lorenza Hodge FNP PCP - General Family Medicine 04/05/22 02/01/23 Sherri Selby MD [address] [place] [address] PCP - General Internal Medicine 02/02/23 Liane Alfred MD [address] [place] [address] [place] [address] Neurology 12/25/24 Holly Araujo NP [address] [place] [address] Urology 12/25/24 Shefali Delgado MD [address] [place] [address] Hematology and Oncology 12/25/24 [facility] [address] [facility] [address] [phone] (Fax) 12/25/24 [facility]) [address] 2nd Floor [address] [facility] [address] 12/25/24 documented as of this encounter
--- OUTSIDE RECORDS SUMMARY | 2025-01-10 10:12 | XMS_ITS | Clinical Summary ---
Author Organization [employer] Address [address] [facility] 7t [place] [address] Care Team Providers Care Home Therapy Teacher Name Role Phone Sherri Selby MD Primary Care Pro vider Liane Alfred MD Unavailable Holly Araujo NP Unavailable Shefali Delgado MD Unavailable [phone] Allergies Active Allergy Reactions Criticality Noted Date [...] Active pantoprazole (ProtoNix) 40 MG EC tablet 07/02/19 23 Active SM Fiber Laxative 500 MG tablet 04/07/20 22 Active docusate sodium (Colace) 100 MG capsule Take 100 mg by mouth at bedtime. 06/08/19 23 Active nitroglycerin (Nitrostat) 0.4 MG SL tabletIndicati ons:Atheroscle rosis of [place] coronary artery of [place] heart with stable angina pectoris (CMS/HCC) Place [...] FLUoxetine (PROzac) 40 MG capsule 40 mg Once per day. 2 cap a day 07/08/19 24 Active terazosin (Hytrin) 5 MG capsule Take 5 mg by mouth 1 (one) time. 07/08/19 24 Active topiramate (Topamax) 25 MG tablet Take 25 mg by mouth at bedtime. 08/26/19 24 Active Linzess 290 MCG capsule Take 290 mcg by mouth in the morning. 08/05/19 24 Active atorvastatin (Lipitor) 80 MG tablet Take 1 tablet (80 mg) by mouth Once per day. TAKE 1 TABLET BY MOUTH AT BEDTIME 90 tablet 3 02/23/20 24 Active lidocaine-pril ocaine (Emla) 2.5-2.5 % cream Apply topically if needed each day for mild pain. 30 g 2 08/15/19 25 Active traZODone (Desyrel) 50 MG tablet Take 50 mg by mouth at bedtime. 08/04/19 25 Active hydrOXYzine pamoate (Vistaril) 25 MG capsule 08/26/19 24 Active sodium chloride (Nis[place]ogue) 0.65 % nasal spray Administer 1 spray into each nostril if needed for congestion. 15 mL 2 08/18/19 25 026 Active Icosapent Ethyl (Vascepa) 1 g capsule Take 2 capsules (2 g) by mouth with breakfast and with evening meal. 120 capsule 11 08/23/19 25 026 Active acetaminophen (Tylenol 8 Hour) 650 MG ER tablet Take 1 tablet (650 mg) by mouth every 8 (eight) hours if needed for mild pain. Do not crush, chew, or split. 30 tablet 11/23/19 25 Active Multiple Vitamins-[place] als (CertaVite/Ant ioxidants) tablet TAKE 1 TABLET BY MOUTH EVERY MORNING 90 tablet 3 12/26/19 25 Active ezetimibe (Zetia) 10 MG tablet Take 10 mg by mouth in the morning. 10/30/19 25 Active Aspirin Low Dose 81 MG EC tabletIndicati ons:TIA (transient ischemic attack) TAKE 1 TABLET BY MOUTH EVERY MORNING 90 tablet 1 01/09/20 25 Active Multiple Vitamins-Beach Lifeguard als (CertaVite/Ant ioxidants) tablet Take 1 tablet by mouth in the morning. 90 tablet 3 12/20/19 24 025 Discontinued aspirin (Aspirin Low Dose) 81 MG EC tabletIndicati ons:TIA (transient ischemic attack) TAKE 1 TABLET BY MOUTH EVERY MORNING 90 tablet 1 06/28/19 25 025 Discontinued Vascepa 1 g capsule TAKE 1 CAPSULE BY MOUTH EVERY MORNING 90 capsule 1 08/15/19 25 025 Discontinued(Ot her) Active Problems Problem Noted Date Diagnosed Date Dysphagia 12/25/2024 Severe dental caries 11/22/2024 Transaminitis 08/17/2024 Carotid stenosis, asymptomatic, bilateral 2024 [...] hemorrhoids and left sided diverticulosis Atherosclerosis of [place] co ronary artery of [place] heart with stable angina pectoris 08/10/2022 Overview (11/24/2022): Cardiac hx Chest pain continued SOB Leg swelling Assessment & Plan (11/24/2022 6:12 PM EDT): Try and locate Cards notes Check BNP F/u PRN Gastroesophageal reflux disease 06/14/2022 Migraine without aura and wi thout status migrainosus, not intractable 06/07/2022 Overview (02/02/2023): Care Managed by [facility] - Pt has chronic left druze migraine. Injury to L druze about 3 years ago. 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); TIA (transient ischemic attack); Other migraine without status migrainosus, not intractable; Dysphagia, unspecified type; Migraine without aura and without status migrainosus, not intractable 12/25/2024 Travel 12/25/2024 Refill [facility] [address] [place] [address] Sherri Selby MD 12/24/2024 Telephone [facility] MEDICINE [address] [place] [address] Sherri Selby MD chartprep 12/14/2024 11:00 AM EDT Office Visit [facility] ADULT DENTAL [address] [place] [address] Jeremías Teixeira DDS Missing teeth, acquired (Primary Dx) 11/22/2024 10:00 AM EDT Office Visit [facility] ADULT DENTAL [address] [place] [address] Jeremías Teixeira DDS Severe dental caries (Primary Dx) 10/29/2024 Telephone [facility] [address] [place] [address] Sherri Selby MD Error (VOID this visit) 10/29/2024 Results Follow-Up [facility] [address] [place] [address] Sherri Selby MD MR Brain w/o Contrast 10/11/2024 Results Follow-Up [facility] MED[facility] [address] [place] [address] Sherri Selby MD Occult Blood, Fecal, Immunoassay 10/10/2024 10:00 AM EDT Office Visit [facility] [address] [facility] [address] Sherri Selby MD Poor memory (Primary Dx); Mixed hyperlipidemia; Transaminitis; Health care maintenance 10/10/2024 Travel from Last 3 Months Immunizations Immunization Administration [...] Sign Reading Time Taken Comments Blood Pressure 124/64 12/25/2024 10:11 AM EDT Pulse 72 12/25/2024 10:11 AM EDT Temperature 36.2 C (97.1 F) 12/25/2024 10:11 AM EDT Respiratory Rate 20 12/25/2024 10:11 AM EDT Oxygen Saturation 98% 12/25/2024 10:11 AM EDT Inhaled Oxygen Concentration - - Weight 86.2 kg (190 lb) 12/25/2024 10:11 AM EDT Height 175.3 cm (5' 9 ) 12/25/2024 10:11 AM EDT Body Mass Index 28.06 12/25/2024 10:11 AM EDT Plan of Treatment Upcoming Encounters Date Type Department Care Team (Late st Contact Info) Description 02/28/2025 2:45 PM EDT Office Visit [facility] MEDICINE [address] [place] [address] Sherri Selby MD [address] [place] [address] 04/24/2025 3:30 PM EST Office Visit [facility] OPTOMETRY [address] [place] [address] Mitali Kirby, OD [address] [place] [address] Health Maintenance Due Date Last Done Comments CT Colonography 1960 Colonoscopy 1960 FIT DNA/Cologuard 1960 Sigmoidoscopy 1960 Pneumococcal Vaccine: 50+ Years (1 of 2 - PCV) 1979 Dental Oral Exam 12/25/2024 06/26/2024, 01/2023, 12/24/2021, Additional history exists Dental Prophylaxis 12/25/2024 06/26/2024, 0 10/18/2023, 03/24/2023, Additional history exists Influenza Vaccine (#1) 2025 , 02/09/2022, 06/02/2021, Additional history exists Dental X-Ray: Bitewings 06/27/2025 06/26/19, 03/24/2023, 12/24/2021, Additional history exists Alcohol/Substance Use Screening 08/17/2025 08/17/2024 Depression Screening 08/17/2025 08/17/2024, 08/18/19 Disability Screening 08/17/2025 08/17/2024 SDOH Screening 08/17/2025 08/17/2024 Diabetes: Hemoglobin A1C 09/12/2025 025, 11/16/2023, 08/10/2022, Additional history exists Colorectal Cancer Screening 10/04/2025 FIT 10/04/2025 10/04/2024, 02/14, 06/05/2023 FOBT 10/04/2025 10/04/2024, 02/14, 06/05/2023 Tobacco Screening 12/25/2025 12/25/2024 Dental X-Ray: Full Mouth 03/25/2026 023, 05/02/2019, [...] Completed 03/02/2024, 08/2023, 04/13/2022, Additional history exists Hepatitis B Vaccines Completed [...] Procedure Name Priority Date/Time Associated Diagnosis Comments CASE PRESENTATION, DETAILED AND EXTENSIVE TREATMENT PLANNING Routine 12/14/2024 11:00 AM EDT 21 ADD TOOTH TO EXISTING PARTIAL DENTURE Routine 12/14/2024 11:00 AM EDT REPAIR RESIN PARTIAL DENTURE BASE, LEVI Routine 12/14/2024 11:00 AM EDT 21 EXTRACTION, ERUPTED TOOTH REQ REMOVAL OF BONE AND/OR SECTIONING OF TOOTH Routine 11/22/2024 10:00 AM EDT CASE PRESENTATION, DETAILED AND EXTENSIVE TREATMENT PLANNING Routine 11/22/2024 10:00 AM EDT MR BRAIN WO CONTRAST Routine 10/27/2024 2:29 PM EDT Poor memory FECAL GLOBIN BY IMMUNOCHEMISTRY Routine 10/04/2024 12:00 AM EDT HEMOGLOBIN A1C Routine 09/12/2024 7:47 AM EDT Transaminitis LIPID PANEL, STANDARD Routine 09/12/2024 7:47 AM EDT Transaminitis PROPHYLAXIS - ADULT Routine 06/26/2024 1 :00 PM EST BITEWINGS - 4 RADIOGRAPHIC IMAGES Routine 06/26/2024 1:00 PM EST PERIODIC ORAL EVALUATION - ESTABLISHED PATIENT Routine 06/26/2024 1:00 PM EST Encounter for dental examination Dental calculus Dental plaque Dental caries HEPATITIS C AB W/REFL TO HCV RNA, [...] Recently Relevant to Health Maintenance Results * MR Brain w/o Contrast (10/27/2024 2:29 PM EDT) Anatomical Region Laterality Modality Brain Magnetic Resonan ce 10/27/2024 2:29 PM EDT Narrative 10/29/2024 8:57 AM EDT [address] [address] Magnetic Resonance Report Signed Patient: Inderjit Stoner MR #: [id number] : 1960 Acct:[id number] Age/Sex: 64 / M ADM Date: 10/27/24 Loc: HO.MRI Attending Dr: Sherri Navarro MD Ordering Physician: Sherri Selby MD Date of Service: 10/27/24 Procedure(s): MR head/brain wo con Accession Number(s): [id number] cc: Sherri Selby MD EXAMINATION: MR BRAIN WITHOUT CONTRAST CLINICAL INFORMATION: Worsening memory. Balance problems. COMPARISON: Correlated to CT brain and CT angiogram brain dated May 31, 2024. TECHNIQUE: MRI of the brain was obtained using routine sequences without contrast. FINDINGS: No restricted diffusion. Focal susceptibility signal in the body of the right cingulate gyrus. No acute intracranial hemorrhage, mass effect, midline shift, hydrocephalus or herniation. Salas-white matter differentiation is normal. Posterior cranial fossa contents demonstrated no signal abnormality mass effect. Flow-void signal within the main vessels is normal. Sellar/suprasellar region demonstrated no signal abnormality or masses. Craniocervical junction demonstrates normal position of the cerebellar tonsils Decreased AP diameter of the cranium.. MR/MR head/brain wo con IMPRESSION: No acute stroke or acute brain abnormality. 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 Plagiocephaly. Electronically signed by: Blu Farrell MD 10/29/2024 08:54 AM EDT Dictated By: Blu Mijares MD Signed By: <Electronically signed by Blu Moses MD in OV> 10/29/24 0854 DD/ 1429 TD/TT: 10/27/24 1455 Fur Blower Operator: Procedure Note Donotuseinterpreter, Image - 10/29/2024 [place] [address] Magnetic Resonance Report Signed Patient: Inderjit Stoner [facility] #: [id number] : 1960cct:[id number] Age/Sex: 64 / M[place]M Date: 10/27/24 Loc: HO.MRI Attending Dr: Sherri Navarro MD Ordering Physician: Sherri Selby MD Date of Service: 10/27/24 Procedure(s): MR head/brain wo con Accession Number(s): [id number] cc: Sherri Selby MD EXAMINATION: MR BRAIN WITHOUT CONTRAST CLINICAL INFORMATION: Worsening memory. Balance problems. COMPARISON: Correlated to CT brain and CT angiogram brain dated May 31, 2024. TECHNIQUE: MRI of the brain was obtained using routine sequences without contrast. FINDINGS: No restricted diffusion. Focal susceptibility signal in the body of the right cingulate gyrus. No acute intracranial hemorrhage, mass effect, midline shift, hydrocephalus or herniation. Salas-white matter differentiation is normal. Posterior cranial fossa contents demonstrated no signal abnormality mass effect. Flow-void signal within the main vessels is normal. Sellar/suprasellar region demonstrated no signal abnormality or masses. Craniocervical junction demonstrates normal position of the cerebellar tonsils Decreased AP diameter of the cranium.. MR/MR head/brain wo con IMPRESSION: No acute stroke or acute brain abnormality. 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 Plagiocephaly. Electronically signed by: Blu Farrell MD 10/29/2024 08:54 AM EDT RP Dictated By: Blu Mijares MD Signed By: <Electronically signed by Blu Moses MDin OV> 10/29/24 0854 DD/ 1429 TD/TT: 10/27/24 1455 Fur Blower Operator: Sherri Navarro MD IMG MRI PROCEDURE S Edited Result - Final * Occult Blood, Fecal, Immunoassay (10/04/2024 12:00 AM EDT) Fecal Globin By Immunochemistry SEE NOTE [employer] [facility] Comment: FECAL GLOBIN BY IMMUNOCHEMISTRY Micro Number: [id number] Test Status: Final Specimen Source: Insure (tm) fobt test card Specimen Quality: Inadequate Fecal Globin: Test not performed. The specimen was received in an collection container. Reference Range: Not Detected 10/04/2024 10/11/2024 4:3 0 AM EDT Narrative [facility] - 10/11/2024 4:36 AM EDT FASTING: UNKNOWN Sherri Navarro MD LAB BODY FLUIDS A ND STOOLS ORDERABLES Final Result [facility] [address] [place] [address] [facility] [address] [place] [phone] * Hemoglobin A1c (09/12/2024 7:47 AM EDT) Hemoglobin A1c 5.8 <6.0 % MEDICAL [...] patient sample. Estimated Average Glucose 120 mg/dL [facility] Comment:eAG = Estimated ave rage glucose which is %A1C expressed asaverage glucose, using the formula of the M3O-IccyrgvQoxzbjq Glucose study (ADAG), Diabetes Care, Vol.31,#8,Dec. 2007 Blood Venous blood specimen / Unknown 09/12/2024 7:47 AM EDT 09/12/2024 7:47 AM EDT us Sherri Navarro MD LAB BLOOD ORDERAB LES Final Result [facility] [address] [place] [phone] * Lipid Panel, Standard (09/12/2024 7:47 AM EDT) Triglycerides 137 <150 mg/dL [facility] Comment:Desirable Triglyceri de: less than 150 mg/dLBorderline High Triglyceride 150-199 mg/dLHigh Triglyceride: 200-499 mg/dLVery High Triglyceride: greater than or equal to 5OO mg/dL Cholesterol 150 <200 mg/dL [facility] Comment:Desirable Cholestero l: less than 200 mg/dLBorderline High Cholesterol: 200-239 mg/dLHigh Cholesterol: greater than 239 mg/dL LDL Cholesterol Calculated 80 <100 mg/dL [facility] Comment:Desirable LDL: less than 100 mg/dLNear Optimal/Above Optimal LDL: 110- 129 mg/dLBorderline High LDL: 130-159 mg/dLHigh LDL: 160-189 mg/dLVery High LDL: greater than or equal to 190 mg/dL HDL Cholesterol 43 >40 mg/dL [facility] Comment:Desirable HDL: great er than 40 mg/dL Note: This HDL assay may give artificially low results in patients with liver disease. Blood Venous blood specimen / Unknown 09/12/2024 7:47 AM EDT 09/12/2024 7:47 AM EDT us Sherri Navarro MD LAB BLOOD ORDERAB LES Final Result Performing Organization Address [facility]/ZIP Co de Phone Number [facility] [address] [place] [phone] [phone] * Hepatitis C Antibody with Reflex to HCV, RNA, Quantitative, Real-Time PCR (11/16/2023 12:08 PM EDT) Hepatitis C Antibody Nonreactive Nonreactive [facility] Comment:Antibodies to HCV no t detected; does not exclude early acuteHCV infection. Blood Venous blood specimen / Unknown 11/16/2023 12:08 PM EDT 11/16/2023 12:08 PM EDT us Sherri Navarro MD LAB BLOOD ORDERAB LES Final Result Performing Organization Address [facility] Co de Phone Number [facility] [address] [place] [phone] * HIV-1/2 Antigen and Antibodies, Fourth Generation, with Reflexes (11/16/2023 12:08 PM EDT) HIV AB/AG Nonreactive Nonreactive [facility] Comment:HIV-1 p24 Ag and/or HIV-1/HIV-2 Ab not detected.A test result that is nonreactive does not exclude thepossibility of exposure to or infection with HIV-1 and/orHIV-2. Nonreactive results in this assay for individualswith prior exposure to HIV-1 and/or HIV-2 may be due toantigen and antibody levels that are below the limit ofdetection of this assay.The [employer] HIV Ag/Ab Combo assay result andsupplemental assay results should be interpreted inconjunction with the patient's clinical presentation,history and other laboratory results. If the results areinconsistent with clinical evidence, additional testing issuggested to confirm the result. Blood Venous blood specimen / Unknown 11/16/2023 12:08 PM EDT 11/16/2023 12:08 PM EDT us Sherri Navarro MD LAB BLOOD ORDERAB LES Final Result Performing Organization Address City/State/[facility] Co de Phone Number [facility] [address] [place] [address] [phone] from Last 3 Months or Most Recently Relevant to Health Maintenance Insurance [facility] < [address] [place] [id number] [facility] Care Teams Home Therapy Teacher Relationship Specialty Start Date End Date Sherri Selby MD [address] [place] [address] PCP - General Internal Medicine 02/02/23 Liane Alfred MD [address] [place] [address] [place] [address] Neurology 12/25/24 Holly Araujo NP [address] [place] [address] Urology 12/25/24 Shefali Delgado MD [address] [place] [address] Hematology and Oncology 12/25/24 [facility] [address] [facility] [address] [phone] (Fax) 12/25/24 [facility] 10 [facility] 2nd Floor [address] [facility] [address] 12/25/24
--- OUTSIDE RECORDS SUMMARY | 2025-01-10 10:12 | XMS_ITS | Encounter Summary ---
Author Organization [employer] Address [address] [facility] 7t [place] [address] Care Team Providers Care Senior Sharepoint Architect Name Role Phone Sherri Selby MD Primary Care Pro vider Liane Alfred MD Unavailable [phone] Holly Araujo NP Unavailable Shefali Delgado MD Unavailable [phone] Reason for Visit * Reason Onset Date Comments Results 05/05/2023 Encounter Details Date Type Department Care Team (Late st Contact Info) Description 05/05/2023 Telephone [facility] [address] [place], [place] [phone] Sherri Selby MD [address] [place], [place] [phone] Results Social History Tobacco Use Types Packs/Day Years Used Date Smoking Tobacco: Never Smokeless Tobacco: Never Alcohol Use Standard Drinks/Week Comments Never 0 (1 standard drink = 0.6 oz pur e alcohol) Depression Answer Date Recorded Patient Health Questionnaire-9 Score 16 08/10/2022 Housing Stability Answer Date Recorded What is your housing situation today? I have bron[place] nba 03/09/[address] you li [...] Miscellaneous Notes * Telephone Encounter - Linda Saleem - 05/05/2023 11:06 AM EST Tc from pt requesting MRI results of spine. Please contact pt at [phone] documented in this encounter Plan of Treatment Upcoming Encounters Date Type Department Care Team (Late st Contact Info) Description 02/28/2025 2:45 PM EDT Office Visit [facility] [address] [place] [address] Sherri Selby MD [address] [place] [address] 04/24/2025 3:30 PM EST Office Visit [facility] OPTOMETRY [address] [place] [address] Mitali Kirby, OD [address] [place] [address] documented as of this encounter Visit Diagnoses Not on filedocumented in this encounter Additional Health Concerns Assessment Noted Time PHQ-9 Depression Total Score: 16 023 9:09 AM EDT documented as of this encounter Care Teams Senior Sharepoint Architect Relationship Specialty Start Date End Date Sherri Selby MD [address] [place] [address] PCP - General Internal Medicine 02/02/23 Liane Alfred MD [address] [place] [address] [place] [address] Neurology 12/25/24 Holly Araujo NP [address] [place] [address] Urology 12/25/24 Shefali Delgado MD [address] [place] [address] Hematology and Oncology 12/25/24 [facility] [address] [place] [phone] (Fax) 12/25/24 [facility] 10 [facility] 2nd Floor [address] [facility] [address] 12/25/24 documented as of this encounter
--- OUTSIDE RECORDS SUMMARY | 2025-01-10 10:12 | XMS_ITS | Clinical Summary ---
Author Organization [facility] Address [address] [place] [phone] Phone Care Team Providers Care Technical Product Manager Name Role Phone Unavailable Primary Care Provider [...] Vaccine ( - 2023-2 5 season) 2024 Depression Screening 05/16/2024 Influenza Vaccine (#1) 2025 RSV Immunization Adult Patie nts (1 [...]
--- OUTSIDE RECORDS SUMMARY | 2025-01-10 10:12 | XMS_ITS | Encounter Summary ---
Author Organization [employer] Address 75 [facility] 7t [place] [address] Care Team Providers Care Sales Promotion Director Name Role Phone Lorenza Hodge Primary Care Provider Sherri Leyva MD Primary Care Pro vider Liane Alfred MD Unavailable [phone] Holly Araujo NP Unavailable Shefali Delgado MD Unavailable [phone] Encounter Details Date Type Department Care Team (Late st Contact Info) Description 11/25/[address] [facility] MED[facility]INE [address] [place] [address] Lorenza Hodge FNP Social History Tobacco Use Types Packs/Day Years [...] Description 02/28/2025 2:45 PM EDT Office [address] [facility] [address] [place] [address] Sherri Selby MD 230 [place] [address] 04/24/2025 3:30 PM EST Office Visit [facility] OPTOMETRY [address] [place], [place] [phone] Mitali Kirby, OD [address] [place] [address] documented as of this encounter Procedures Procedure Name Priority Date/Time Associated Diagnosis Comments US RENAL BI Routine 12/06/2022 1:54 PM EDT documented in this encounter Results * US RENAL BI (12/06/2022 1:54 PM EDT) Anatomical Region Laterality Modality Abdomen Ultrasound 12/06/2022 1:54 PM EDT Narrative 12/09/2022 6:44 PM EDT [address] [address] Ultrasound Report Signed Patient: Inderjit Stoner MR #: [id number] : [id number] Acct:[id number] Age/Sex: 62 / M ADM Date: 12/06/22 Loc: HO.US Attending Dr: Lorenza Hodge BAIL ATTACHER Ordering Physician: Lorenza Hodge Date of Service: 12/06/22 Procedure(s): US renal BI Accession Number(s): [id number] cc: Lorenza Hodge BAIL ATTACHER EXAMINATION: US RETROPERITONEAL LIMITED (RENAL ONLY) CLINICAL [...] signed by Radha Ceballos MD in OV> 12/09/221840 DD/ 1354 TD/TT: Senior Oracle Pl Sql Developer: Procedure Note Donotuseinterpreter, Image - 12/09/[address] [address] Ultrasound Report Signed Patient: Inderjit Stoner [facility] #: [id number] : [id number] Age/Sex: 62 / MADM Date: 12/06/22 Loc: HO.US Attending Dr: Lorenza Hodge BAIL ATTACHER Ordering Physician: Lorenza Hodge Date of Service: 12/06/22 Procedure(s): US renal BI Accession Number(s): [id number] cc: Lorenza Hodge EXAMINATION: US RETROPERITONEAL LIMITED [...] signed by Radha Ceballos MD in OV> 12/09/221840 DD/ 1354 TD/TT: Senior Oracle Pl Sql Developer: us Lorenza Hodge BAIL ATTACHER IMG US PROCEDURES Edited R esult - Final documented in this encounter Visit Diagnoses Not on filedocumented in this encounter Additional Health Concerns Assessment Noted Time PHQ-9 Depression Total Score: 16 08/10/ 023 9:09 AM EDT documented as of this encounter Care Teams Sales Promotion Director Relationship Specialty Start Date End Date Lorenza Hodge FNP PCP - General Family Medicine 04/05/22 02/01/23 Sherri Selby MD [address] [place] [address] PCP - General Internal Medicine 02/02/23 Liane Alfred MD [address] [place] [address] Dr Cleaning [address] [place] [address] Neurology 12/25/24 Holly Araujo NP [address] [place] [address] Urology 12/25/24 Shefali Delgado MD [address] [place] [address] Hematology and Oncology 12/25/24 [facility] 759 [facility] [address] [phone] (Fax) 12/25/24 [facility] [address] [place] [address] 2nd Floor [address] [facility] [address] 12/25/24 documented as of this encounter
--- OUTSIDE RECORDS SUMMARY | 2025-01-10 10:12 | XMS_ITS | Encounter Summary ---
Author Organization [employer] Address 75 [facility] 7t [place] [address] Care Team Providers Care Machine Rug Cleaner Name Role Phone Sherri Selby MD Primary Care Pro vider Liane Alfred MD Unavailable Holly Araujo NP Unavailable Shefali Delgado MD Unavailable [phone] Reason for Visit * Reason Comments Med Refill Encounter Details Date Type Department Care Team (Late st Contact Info) Description 09/01/2024 Refill [facility] MEDICINE 230 [place], [place] [phone] Sherri Selby MD 230 [place], [place] [phone] Flank pain Social History Tobacco Use Types [...] Description 02/28/2025 2:45 PM EDT Office Visit [facility] MEDICINE [address] [place] [address] Sherri Selby MD [address] [place] [address] 04/24/2025 3:30 PM EST Office Visit [facility] OPTOMETRY 267 [place] [address] Mitali Kirby, OD 267 [place] [address] documented as of this encounter Visit Diagnoses Diagnosis Flank pain Abdominal pain, unspecified site documented in this encounter Additional Health Concerns Assessment Noted Time PHQ-9 Depression Total Score: 7 08/18/19 25 9:01 AM EDT documented as of this encounter Care Teams Machine Rug Cleaner Relationship Specialty Start Date End Date Sherri Selby MD [address] [place] [address] PCP - General Internal Medicine 02/02/23 Liane Alfred MD 15 [facility] [place] [address] Neurology 12/25/24 Holly Araujo NP [address] [place] [address] Urology 12/25/24 Shefali Delgado MD [address] [place] [address] Hematology and Oncology 12/25/24 [facility] 759 [facility] [address] [phone] (Fax) 12/25/24 [facility]) [address] 2nd Floor [address] [facility] [address] 12/25/24 documented as of this encounter
--- OUTSIDE RECORDS SUMMARY | 2025-01-10 10:12 | XMS_ITS | Encounter Summary ---
Author Organization [employer] Address [address] [place] [address] 7t [place] [address] Care Team Providers Care Agricultural Equipment Sales Engineer Name Role Phone Funmi Easton MD Primary Care Provider Lorenza Stroud Primary Care Provider Sherri Leyva MD Primary Care Pro vider Liane Alfred MD Unavailable Holly Araujo NP Unavailable Shefali Delgado MD Unavailable [phone] Encounter Details Date Type Department Care Team (Latest Contact Info) Description 12/24/2021 Abstract [facility] CONVERSIONS Dental, Provider, DDS Social [...] Description 02/28/2025 2:45 PM EDT Office Visit [facility] 230 [place], [place] [phone] Sherri Selby MD 230 [place], [place] [phone] 04/24/2025 3:30 PM EST Office Visit [facility] OPTOMETRY 267 [place], [place] [phone] Mitali Kiryb, OD [address] [place] [address] documented as of this encounter Visit Diagnoses Not on filedocumented in this encounter Care Teams Agricultural Equipment Sales Engineer Relationship Specialty Start Date End Date Funmi Easton MD PCP - General Family Medicine 03/20/19 04/04/22 Lorenza Hodge FNP PCP - General Family Medicine 04/05/22 02/01/23 Sherri Selby MD 230 [place] [address] PCP - General Internal Medicine 02/02/23 Liane Alfred MD [address] [place] [address] [place] [address] Neurology 12/25/24 Holly Araujo NP [address] [place] [address] Urology 12/25/24 Shefali Delgado MD [address] [place] [address] Hematology and Oncology 12/25/24 [facility] 759 [facility] [address] [phone] (Fax) 12/25/24 [facility]) [address] 2nd Floor [address] [facility] [address] 12/25/24 documented as of this encounter
--- OUTSIDE RECORDS SUMMARY | 2025-01-10 10:12 | XMS_ITS | Encounter Summary ---
Author Organization [employer] Address [address] [place] [address] 7t [place] [address] Care Team Providers Care Restaurant Culinary Manager Name Role Phone Funmi Easton MD Primary Care Provider Lorenza Stroud Primary Care Provider Sherri Leyva MD Primary Care Pro vider Liane Alfred MD Unavailable Holly Araujo NP Unavailable Shefali Delgado MD Unavailable [phone] Encounter Details Date Type Department Care Team (Latest Contact Info) Description 05/02/2019 Abstract [facility] CONVERSIONS Dental, Provider, DDS Social [...] Description 02/28/2025 2:45 PM EDT Office Visit [facility] MEDICINE 230 [place], [place] [phone] Sherri Selby MD 230 [place], [place] [phone] 04/24/2025 3:30 PM EST Office Visit [facility] OPTOMETRY 267 [place], [place] [phone] Kofi Mitali, OD [address] [place] [address] documented as of this encounter Visit Diagnoses Not on filedocumented in this encounter Care Teams Restaurant Culinary Manager Relationship Specialty Start Date End Date Funmi Eastno MD PCP - General Family Medicine 03/20/19 04/04/22 Lorenza Hodge FNP PCP - General Family Medicine 04/05/22 02/01/23 Sherri Selby MD 230 [place] [address] PCP - General Internal Medicine 02/02/23 Liane Alfred MD [address] [place] [address] [place] [address] Neurology 12/25/24 Holly Araujo NP [address] [place] [address] Urology 12/25/24 Shefali Delgado MD [address] [place] [address] Hematology and Oncology 12/25/24 [facility] 759 [facility] [address] [phone] (Fax) 12/25/24 [facility] [address] 2[address] Floor [address] [facility] [address] 12/25/24 documented as of this encounter
--- OUTSIDE RECORDS SUMMARY | 2025-01-10 10:12 | XMS_ITS | Encounter Summary ---
Author Organization [employer] Address 75 [facility] 7t [place] [address] Care Team Providers Care Hospice Chaplain Name Role Phone Lorenza Hodge BURNER TECHNICIAN Primary Care Provider Sherri Leyva MD Primary Care Pro vider Liane Alfred MD Unavailable Holly Araujo NP Unavailable Shefali Delgado MD Unavailable [phone] Reason for Visit * Reason Onset Date Comments triage 06/11/2022 Encounter Details Date Type Department Care Team (Late st Contact Info) Description 06/11/2022 Telephone [facility] MEDICINE [address] [place] [address] [phone] Lorenza Hodge FNP triage Social History Tobacco Use Types Packs/Day [...] on pt. Voice mail to call back [facility] nurses at [phone] or if emergent care needed to go [...] Description 02/28/2025 2:45 PM EDT Office Visit [facility] MEDICINE [address] [place] [address] Sherri Selby MD [address] [place] [address] 04/24/2025 3:30 PM EST Office Visit [facility] OPTOMETRY 267 [place] [address] Mitali Kirby, OD 267 [place] [address] documented as of this encounter Visit Diagnoses Not on filedocumented in this encounter Care Teams Hospice Chaplain Relationship Specialty Start Date End Date Lorenza Hodge FNP PCP - General Family Medicine 04/05/22 02/01/23 Sherri Selby MD [address] [place] [address] PCP - General Internal Medicine 02/02/23 Liane Alfred MD [address] [facility] [place] [address] Neurology 12/25/24 Holly Araujo NP [address] [place] [address] Urology 12/25/24 Shefali Delgado MD [address] [place] [address] Hematology and Oncology 12/25/24 [facility] 759 [facility] [address] [phone] (Fax) 12/25/24 [facility]) [address] 2nd Floor [address] [facility] [address] 12/25/24 documented as of this encounter
[2025-01-10 10:26] LABS: Alanine Aminotransferase 45 U/L (0-40); Albumin Level 4.3 g/dL (3.5-5.0); Alkaline Phosphatase 82 U/L (39-117); Anion Gap 10 (12-20); Aspartate Amino Transferase 36 U/L (5-37); Blood Urea Nitrogen 11 mg/dL (9-16); Calcium 9.0 mg/dL (8.4-10.2); Carbon Dioxide 29 mmol/L (22-29); Chloride 104 mmol/L (96-108); Cholesterol 202 mg/dL (<200); Estimated Glomerular Filt Rate > 60; HDL Cholesterol 34 mg/dL (>40); Potassium 4.1 mmol/L (3.3-5.1); Sodium 139 mmol/L (135-145); Total Protein 7.0 g/dL (6.5-8.0); Triglycerides 280 mg/dL (<150)
[2025-01-10 10:44] LABS: Free T4 (Free Thyroxine) 1.00 ng/dL (0.71-1.85); Thyroid Stimulating Hormone 1.48 uIU/mL (0.32-4.0)
== END 2025-01-10 09:12 | disposition home or self-care (01) ==
LOC: HO.LAB 09:11
PROVIDERS: PCP Student in an Organized Health Care Education/Training Program; Visit Provider Registered Nurse Psychiatric/Mental Health
DX: Z01.810 Encounter for preprocedural cardiovascular examination (principal); Z79.899 Other long term (current) drug therapy
CPT/HCPCS: 36415; 80053; 80061; 82248; 84439; 84443; 93005

== ENCOUNTER → 2025-01-10 09:29 | Outpatient (BNV) | payer OTHER, SELFPAY | PROVIDERS: PCP Student in an Organized Health Care Education/Training Program; Visit Provider Internal Medicine | DX: Z01.810 Encounter for preprocedural cardiovascular examination (principal) | CPT/HCPCS: 93010 ==

== ENCOUNTER 2025-01-30 12:25 | Outpatient (AMB) | payer OTHER, SELFPAY ==
--- NOTE | 2025-01-30 12:28 | A.OFFVIS_ITS ---
Intake Visit Reasons: 3 Months F/U Allergies No Known Allergies Allergy (Verified 09/17/24 14:37) HPI Comments Details: 64 yo man with tremor, migraine, and dyscognitive seizure disorder with episodes of blurred vision and passing out. The other day, he had another episode of passing out. He was not drinking or dehydrated. He was having a headache when he passed out in his bathroom. he came to ER at [facility]. CTA of brain and neck did not reveal any significant abnormality. He is presenting with possible chest pain. He reports feeling a restricted pain in the chest for about 30 seconds, which he believes is serious. The episodes are rare and do not appear to be stress-induced. In addition, he reports inconsistent sleep patterns, with some nights being restful and others not. He remains on a stable regimen of Levetiracetam and Topiramate for epilepsy management and indicates that he is adhering to this treatment plan. No recent seizures have been reported, suggesting effective control. 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 - Neurological: Denies current seizures. - Psychological: Reports inconsistent sleep patterns; mood is characterized as okay. Physical Exam Neuro Other: Mental Status: Alert and oriented to person, place, and time. Normal attention. Normal spontaneous speech, fluency, and comprehension. No obvious issues with mood and memory. Affect is appropriate. Cranial Nerves: CN II: Visual stewart full to confrontation, visual acuity intact. CN III, IV, : Pupils equal, round, reactive to light and accommodation. Extraocular movements are normal. CN V: Facial sensation is normal. CN VII: Facial movements symmetrical. CN VIII: Hearing intact to bedside conversation is normal. CN IX, X: Palate elevates symmetrically. CN XI: Shoulder shrug and head turn symmetrical. CN XII: Tongue midline without atrophy or fasciculations. Extrapyramidal: Full facial expressions and blinking. No rigidity. Movements are appropriate with no tremor or abnormality. Speech: Normal; no dysarthria or tremor. Assessment & Plan Assessment & Plan (1) Complex partial seizures: Comment: MRI brain WWO at [facility] in October 2024: Minimal MVD Carotid ultrasound at [facility] in Feb 2024: WNL CT brain WO at [facility] in Feb 2024: WNL Amb EEG at [facility] in Jun 2021: R parietal sharps CT brain WO at [facility] in May 2020: WNL NCV/EMG UE 11/09/17 THIS IS A NORMAL STUDY MRI of C spine wtih cont at [facility] in 2013: WNL CT brain w/o cont at [facility] in 2007, 2008, 2011, 2012: ok CTA brain and neck at [facility] in May 2024: OK Routine EEG in office in Aug 2015: [place] Routine EEG in office in Dec 2014: WNL Routine EEG in office in September 2013: WNL Routine EEG at off in November 2020: WNL. Code(s): G40.209 - Localization-related (focal) (partial) symptomatic epilepsy and epileptic syndromes with complex partial seizures, not intractable, without status epilepticus Category: Medical (2) Tremor: Code(s): R25.1 - Tremor, unspecified Category: Medical (3) Migraine: Code(s): G43.909 - Migraine, unspecified, not intractable, without status migrainosus Category: Medical Qualifiers: Migraine type: migraine (< 15 days per month) without aura Status migrainosus presence: without status migrainosus Intractability: not intractable Qualified Code(s): G43.009 - Migraine without aura, not intractable, without status migrainosus Plan Impression: a: Complex partial seizure do b: Migraine Rec: Levetiracetam 500mg bid Topiramate 25mg one at night Medications: New levetiracetam 500 mg PO BID 180 tabs 1RF topiramate 25 mg orally one at night; 90 tabs 1RF Coding Level of Care Code Est Pt Level 4 (47693) Diagnoses Complex partial seizures G40.209 Tremor R25.1 Migraine without aura and without status migrainosus, not intractable G43.009 Migraine type: migraine (< 15 days per month) without aura Status migrainosus presence: without status migrainosus Intractability: not intractable
--- OUTSIDE RECORDS SUMMARY | 2025-01-30 15:53 | XMS_ITS | Encounter Summary ---
Author Organization [employer] Address 75 [facility] 7t [place] [address] Care Team Providers Care Mineral Mixer Name Role Phone Sherri Selby MD Primary Care Pro vider Liane Alfred MD Unavailable [phone] Holly Araujo NP Unavailable Shefali Delgado MD Unavailable [phone] Reason for Visit * Reason Comments Med Refill Encounter Details Date Type Department Care Team (Late st Contact Info) Description 09/01/2024 Refill [facility] MEDICINE 230 [place], [place] [phone] Sherri Selby MD 230 [place], [place] [phone] Flank pain Social History Tobacco Use Types [...] Description 02/28/2025 2:45 PM EDT Office Visit [facility] MEDICINE [address] [place] [address] Sherri Selby MD [address] [place] [address] 05/24/2025 10:00 AM EST Office Visit [facility] OPTOMETRY 267 [place] [address] Mitali Kirby, OD 267 [place] [address] documented as of this encounter Visit Diagnoses Diagnosis Flank pain Abdominal pain, unspecified site documented in this encounter Additional Health Concerns Assessment Noted Time PHQ-9 Depression Total Score: 7 08/18/19 25 9:01 AM EDT documented as of this encounter Care Teams Mineral Mixer Relationship Specialty Start Date End Date Sherri Selby MD [address] [place] [address] PCP - General Internal Medicine 02/02/23 Liane Alfred MD 15 [facility] [place] [address] Neurology 12/25/24 Holly Araujo NP [address] [place] [address] Urology 12/25/24 Shefali Delgado MD [address] [place] [address] Hematology and Oncology 12/25/24 [facility] 759 [facility] [address] [phone] (Fax) 12/25/24 [facility]) [address] 2nd Floor [address] [facility] [address] 12/25/24 documented as of this encounter
--- OUTSIDE RECORDS SUMMARY | 2025-01-30 15:53 | XMS_ITS | Encounter Summary ---
Author Organization [employer] Address 75 [facility] 7t [place] [address] Care Team Providers Care Supervisor Insecticide Name Role Phone Sherri Selby MD Primary Care Pro vider Liane Alfred MD Unavailable [phone] Holly Araujo NP Unavailable Shefali Delgado MD Unavailable [phone] Reason for Visit * Reason Onset Date Comments Results 05/05/2023 Encounter Details Date Type Department Care Team (Late st Contact Info) Description 05/05/[address] [facility] MEDICINE 230 [place], [place] [phone] Sherri Selby MD 230 [place], [place] [phone] Results Social History Tobacco Use Types Packs/Day [...] results of spine. Please contact pt at [phone] documented in this encounter Plan of Treatment Upcoming Encounters Date Type Department Care Team (Late st Contact Info) Description 02/28/2025 2:45 PM EDT Office Visit [facility] MEDICINE [address] [place] [address] Sherri Selby MD 230 [place] [address] 05/24/2025 10:00 AM EST Office Visit [facility] OPTOMETRY [address] [place] [address] Mitali Kirby, OD [address] [place] [address] documented as of this encounter Visit Diagnoses Not on filedocumented in this encounter Additional Health Concerns Assessment Noted Time PHQ-9 Depression Total Score: 16 023 9:09 AM EDT documented as of this encounter Care Teams Supervisor Insecticide Relationship Specialty Start Date End Date Sherri Selby MD 230 [place] [address] PCP - General Internal Medicine 02/02/23 Liane Alfred MD [address] [place] [address] [place] [address] Neurology 12/25/24 Holly Araujo NP [address] [place] [address] Urology 12/25/24 Shefali Delgado MD [address] [place] [address] Hematology and Oncology 12/25/24 [facility] [address] [place] [address] [phone] (Fax) 12/25/24 [facility]) [address] [facility] 2nd Floor [address] [facility] [address] 12/25/24 documented as of this encounter
--- OUTSIDE RECORDS SUMMARY | 2025-01-30 15:54 | XMS_ITS | Encounter Summary ---
Author Organization [employer] Address 75 [facility] 7t [place] [address] Care Team Providers Care Route Process Administrator Name Role Phone Lorenza Hodge INSPECTOR COATED FABRICS Primary Care Provider Sherri Leyva MD Primary Care Pro vider Liane Alfred MD Unavailable Holly Araujo NP Unavailable Shefali Delgado MD Unavailable [phone] Reason for Visit * Reason Onset Date Comments triage 06/11/2022 Encounter Details Date Type Department Care Team (Late st Contact Info) Description 06/11/2022 Telephone [facility] MEDICINE [address] [place] [address] [phone] Lorenza Hodge FNP triage Social History Tobacco [...] on pt. Voice mail to call back [facility] nurses at [phone] or if emergent care needed to go [...] Description 02/28/2025 2:45 PM EDT Office Visit [facility] MEDICINE [address] [place] [address] Sherri Selby MD [address] [place] [address] 05/24/2025 10:00 AM EST Office Visit [facility] OPTOMETRY [address] [place] [address] Mitali Kirby, OD 267 [place] [address] documented as of this encounter Visit Diagnoses Not on filedocumented in this encounter Care Teams Route Process Administrator Relationship Specialty Start Date End Date Lorenza Hodge FNP PCP - General Family Medicine 04/05/22 02/01/23 Sherri Selby MD [address] [place] [address] PCP - General Internal Medicine 02/02/23 Liane Alfred MD [address] [facility] [place] [address] Neurology 12/25/24 Holly Araujo NP [address] [place] [address] Urology 12/25/24 Shefali Delgado MD [address] [place] [address] Hematology and Oncology 12/25/24 [facility] 759 [facility] [address] [phone] (Fax) 12/25/24 [facility]) [address] 2[address] Floor [address] [facility] [address] 12/25/24 documented as of this encounter
--- OUTSIDE RECORDS SUMMARY | 2025-01-30 15:54 | XMS_ITS | Encounter Summary ---
Author Organization [employer] Address [address] [place] [address] 7t [place] [address] Care Team Providers Care Auto Hiker Name Role Phone Funmi Easton MD Primary Care Provider Lorneza Stroud Primary Care Provider Sherri Leyva MD Primary Care Pro vider Liane Alfred MD Unavailable Holly Araujo NP Unavailable Shefali Delgado MD Unavailable [phone] Encounter Details Date Type Department Care Team (Latest Contact Info) Description 12/24/2021 Abstract [facility] Dental, Provider, DDS Social History [...] Description 02/28/2025 2:45 PM EDT Office Visit [facility] [address] [place], [place] [phone] Sherri Selby MD 230 [place], [place] [phone] 05/24/2025 10:00 AM EST Office Visit [facility] 267 [place], [place] [phone] Mitali Kirby, OD [address] [place] [address] documented as of this encounter Visit Diagnoses Not on filedocumented in this encounter Care Teams Auto Hiker Relationship Specialty Start Date End Date Funmi Easton MD PCP - General Family Medicine 03/20/19 04/04/22 Lorenza Hodge FNP PCP - General Family Medicine 04/05/22 02/01/23 Sherri Selby MD 230 [place] [address] PCP - General Internal Medicine 02/02/23 Liane Alfred MD [address] [place] [address] [place] [address] Neurology 12/25/24 Holly Araujo NP [address] [place] [address] Urology 12/25/24 Shefali Delgado MD [address] [place] [address] Hematology and Oncology 12/25/24 [facility] [address] [address] [phone] (Fax) 12/25/24 [facility] [address] 2nd Floor [address] [facility] [address] 12/25/24 documented as of this encounter
--- OUTSIDE RECORDS SUMMARY | 2025-01-30 15:54 | XMS_ITS | Encounter Summary ---
Author Organization [employer] Address [address] [place] [address] 7t [place] [address] Care Team Providers Care Wooden Frame Builder Name Role Phone Funmi Easton MD Primary Care Provider Lorenza Stroud Primary Care Provider Sherri Leyva MD Primary Care Pro vider Liane Alfred MD Unavailable Holly Araujo NP Unavailable Shefali Delgado MD Unavailable [phone] Encounter Details Date Type Department Care Team (Latest Contact Info) Description 05/02/[address] [facility] CONVERSIONS Dental, Provider, DDS Social History [...] 02/28/2025 2:45 PM EDT Office Visit [facility] MEDICINE 230 [place], [place] [phone] Sherri Selby MD 230 [place], [place] [phone] 05/24/2025 10:00 AM EST Office Visit [facility] OPTOMETRY 267 [place], [place] [phone] Kofi Mitali, OD [address] [place] [address] documented as of this encounter Visit Diagnoses Not on filedocumented in this encounter Care Teams Wooden Frame Builder Relationship Specialty Start Date End Date Funmi Easton MD PCP - General Family Medicine 03/20/19 04/04/22 Lorenza Hodge FNP PCP - General Family Medicine 04/05/22 02/01/23 Sherri Selby MD 230 [place] [address] PCP - General Internal Medicine 02/02/23 Liane Alfred MD [address] [place] [address] [place] [address] Neurology 12/25/24 Holly Araujo NP [address] [place] [address] Urology 12/25/24 Shefali Delgado MD [address] [place] [address] Hematology and Oncology 12/25/24 [facility] 759 [facility] [address] [phone] (Fax) 12/25/24 [facility]) [address] 2[address] Floor [address] [facility] [address] 12/25/24 documented as of this encounter
--- OUTSIDE RECORDS SUMMARY | 2025-01-30 15:54 | XMS_ITS | Clinical Summary ---
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 30 tablet 11/23/19 25 Active Multiple Vitamins-[place] als (CertaVite/Ant ioxidants) tablet TAKE 1 TABLET BY MOUTH EVERY MORNING 90 tablet 3 12/26/19 25 Active ezetimibe (Zetia) 10 MG tablet Take 10 mg by mouth in the morning. 10/30/19 25 Active Aspirin Low Dose 81 MG EC tabletIndicati ons:TIA (transient ischemic attack) TAKE 1 TABLET BY MOUTH EVERY MORNING 90 tablet 1 01/09/20 25 Active aspirin (Aspirin Low Dose) 81 MG EC tabletIndicati ons:TIA (transient ischemic attack) TAKE 1 TABLET BY MOUTH EVERY MORNING 90 tablet 1 06/28/19 25 025 Discontinued Active Problems [...] hemorrhoids and left sided diverticulosis Atherosclerosis of [place] co ronary artery of [place] heart with stable angina pectoris 08/10/2022 Overview (11/24/2022): Cardiac hx Chest pain continued SOB Leg swelling Assessment & Plan (11/24/2022 6:12 PM EDT): Try and locate Cards notes Check BNP F/u PRN Gastroesophageal reflux disease 06/14/2022 Migraine without aura and wi thout status migrainosus, not intractable 06/07/2022 Overview (02/02/2023): Care Managed by [facility] - Pt has chronic left congregation migraine. [...] to locate records Gave pt card with [facility] Fax number and have all specialists fax records to this number Continue medications F/u PRN Nonintractable epilepsy with complex partial sei zures 06/07/2022 Overview (02/02/2023): Dyscognitive seizure disorder with episodes of blurry vision and passing out Care Managed by [facility] Last appt 04/28/22 Treating Keppra 250mg BID [...] to locate records Gave pt card with [facility] Fax number and have all specialists [...] and Patient to reach out to [facility] team as needed Rule Out Diagnoses n/a [...] Type Department Care Team Description 01/07/2025 Refill [facility] [address] [place] [address] Mayelin Robin MD TIA (transient ischemic attack) 12/25/2024 10:00 AM EDT Office Visit [facility] MEDICINE [address] [place] [address] Sherri Selby MD Poor memory (Primary Dx); 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); TIA (transient ischemic attack); Other migraine without status migrainosus, not intractable; Dysphagia, unspecified type; Migraine without aura and without status migrainosus, not intractable 12/25/2024 Travel 12/25/2024 Refill [facility] [address] [place] [address] Sherri Selby MD 12/24/2024 Telephone [facility] MED[facility] [address] [place] [address] Sherri Selby MD chartprep 12/14/2024 11:00 AM EDT Office Visit [facility] ADULT DENTAL [address] [place] [address] Jeremías Teixeira DDS Missing teeth, acquired (Primary Dx) 11/22/2024 10:00 AM EDT Office Visit [facility] ADULT DENTAL [address] [place] [address] Jeremías Teixeira DDS Severe dental caries (Primary Dx) from Last 3 Months Immunizations Immunization Administration [...] EDT Office Visit [facility] MEDICINE [address] [place] [address] Sherri Selby MD 230 [place] [address] 05/24/2025 10:00 AM EST Office Visit [facility] OPTOMETRY [address] [place] [address] Mitali Kirby, OD 267 [place] [address] Health Maintenance Due Date Last Done Comments CT Colonography 1960 Colonoscopy 1960 FIT DNA/Cologuard 1960 Sigmoidoscopy 1960 Pneumococcal Vaccine: 50+ Years (1 of 2 - PCV) 1979 Dental Oral Exam 12/25/2024 06/26/2024, 01/2023, 12/24/2021, Additional history exists Dental Prophylaxis 12/25/2024 06/26/2024, 0 10/18/2023, 03/24/2023, Additional history exists Influenza Vaccine (#1) 2025 , 02/09/2022, 06/02/2021, Additional history exists Dental X-Ray: Bitewings 06/27/2025 06/26/19 25, 03/24/2023, [...] TREATMENT PLANNING Routine 11/22/2024 10:00 AM EDT FECAL GLOBIN BY IMMUNOCHEMISTRY Routine 10/04/2024 12:00 [...] Recently Relevant to Health Maintenance Results * Occult Blood, Fecal, Immunoassay (10/04/2024 12:00 AM EDT) Fecal Globin By Immunochemistry SEE NOTE [employer] [facility] Comment: FECAL GLOBIN BY IMMUNOCHEMISTRY Micro Number: [id number] Test Status: Final Specimen Source: Insure (tm) fobt test card Specimen Quality: Inadequate Fecal Globin: Test not performed. The specimen was received in an collection container. Reference Range: Not Detected 10/04/2024 10/11/2024 4:3 0 AM EDT Narrative [facility] - 10/11/2024 4:36 AM EDT FASTING: UNKNOWN us Sherri Navarro MD LAB BODY FLUIDS A ND STOOLS ORDERABLES Final Result Performing Organization Address City/[facility]/ZIP Co de Phone Number [address], [place] [address] [employer] [address] [place] [phone] * Hemoglobin A1c (09/12/2024 7:47 AM EDT) Hemoglobin A1c 5.8 <6.0 % [facility] Comment:Hemoglobin A1C Refer ence Range Adults: 4.8 - 6.0 % Non diabetic: < 6.0 % Goal: < 7.0 %Additional Action Suggested: > 8.0 %Note: Hemoglobin A1c results are invalid for patients with abnormal amounts of HbF. Blood transfusions may impact the HbA1c concentration in the patient sample. Estimated Average Glucose 120 mg/dL [facility] Comment:eAG = Estimated ave rage glucose which is %A1C expressed asaverage glucose, using the formula of the X6L-IrzxjmlWeppdja Glucose study (ADAG), Diabetes Care, Vol.31,#8,Dec. 2007 Blood Venous blood specimen / Unknown 09/12/2024 7:47 AM EDT 09/12/2024 7:47 AM EDT us Sherri Navarro MD LAB BLOOD ORDERAB LES Final Result [facility] [address] [place] [address] [place] [phone] * Lipid Panel, Standard (09/12/2024 7:47 AM EDT) Triglycerides 137 <150 mg/dL [facility] Comment:Desirable Triglyceri de: less than 150 mg/dLBorderline High Triglyceride 150-199 mg/dLHigh Triglyceride: 200-499 mg/dLVery High Triglyceride: greater than or equal to 5OO mg/dL Cholesterol 150 <200 mg/dL [facility] Comment:Desirable Cholestero l: less than 200 mg/dLBorderline High Cholesterol: 200-239 mg/dLHigh Cholesterol: greater than 239 mg/dL LDL Cholesterol Calculated 80 <100 mg/dL [facility] Comment:Desirable LDL: less than 100 mg/dLNear Optimal/Above Optimal LDL: 110- 129 mg/dLBorderline High LDL: 130-159 mg/dLHigh LDL: 160-189 mg/dLVery High LDL: greater than or equal to 190 mg/dL HDL Cholesterol 43 >40 mg/dL [facility] Comment:Desirable HDL: great er than 40 mg/dL Note: This HDL assay may give artificially low results in patients with liver disease. Blood Venous blood specimen / Unknown 09/12/2024 7:47 AM EDT 09/12/2024 7:47 AM EDT us Sherri Navarro MD LAB BLOOD ORDERAB LES Final Result [facility] [address] [place] [phone] [phone] * Hepatitis C Antibody with Reflex to HCV, RNA, Quantitative, Real-Time PCR (11/16/2023 12:08 PM EDT) Hepatitis C Antibody Nonreactive Nonreactive [facility] Comment:Antibodies to HCV no t detected; does not exclude early acuteHCV infection. Blood Venous blood specimen / Unknown 11/16/2023 12:08 PM EDT 11/16/2023 12:08 PM EDT us Sherri Navarro MD LAB BLOOD ORDERAB LES Final Result Performing Organization Address [facility]/ZIP Co de Phone Number [facility] [address] [place] [phone] * HIV-1/2 Antigen and Antibodies, Fourth Generation, with Reflexes (11/16/2023 12:08 PM EDT) HIV AB/AG Nonreactive Nonreactive [facility] Comment:HIV-1 p24 Ag and/or HIV-1/HIV-2 Ab not detected.A test result that is nonreactive does not exclude thepossibility of exposure to or infection with HIV-1 and/orHIV-2. Nonreactive results in this assay for individualswith prior exposure to HIV-1 and/or HIV-2 may be due toantigen and antibody levels that are below the limit ofdetection of this assay.The [employer] HIV Ag/Ab Combo assay result andsupplemental assay results should be interpreted inconjunction with the patient's clinical presentation,history and other laboratory results. If the results areinconsistent with clinical evidence, additional testing issuggested to confirm the result. Blood Venous blood specimen / Unknown 11/16/2023 12:08 PM EDT 11/16/2023 12:08 PM EDT us Sherri Navarro MD LAB BLOOD ORDERAB LES Final Result Performing Organization Address [facility]/ZIP Co de Phone Number [facility] [address] [place] [phone] from Last 3 Months or Most Recently Relevant to Health Maintenance Insurance [facility] ONE CARE < 65 DENTAL - [facility] Care Teams Cupola Worker Relationship Specialty Start Date End Date Sherri Selby MD [address] [place] [address] PCP - General Internal Medicine 02/02/23 Liane Alfred MD [address] [place] [address] Dr Stewart [place], [place] Neurology 12/25/24 Holly Araujo NP [address] [place] [address] Urology 12/25/24 Shefali Delgado MD [address] [place] [address] Hematology and Oncology 12/25/24 [facility] 759 [facility] [address] [phone] (Fax) 12/25/24 [facility]) [address] 2[address] Floor [address] [facility] [address] 12/25/24
--- OUTSIDE RECORDS SUMMARY | 2025-01-30 15:54 | XMS_ITS | Encounter Summary ---
Author Organization [employer] Address [address] [place] [address] 7t [place] [address] Care Team Providers Care Clinical Sciences Professor Name Role Phone Funmi Easton MD Primary Care Provider Lorenza Stroud Primary Care Provider Sherri Leyva MD Primary Care Pro vider Liane Alfred MD Unavailable Holly Araujo NP Unavailable Shefali Delgado MD Unavailable [phone] Encounter Details Date Type Department Care Team (Latest Contact Info) Description 03/23/2021 Abstract [facility] CONVERSIONS Dental, Provider, DDS Social History Tobacco [...] 02/28/2025 2:45 PM EDT Office Visit [facility] MEDICINE 230 [place], [place] [phone] Sherri Selby MD 230 [place], [place] [phone] 05/24/2025 10:00 AM EST Office Visit [facility] OPTOMETRY 267 [place], [place] [phone] Mitali Kirby, OD [address] [place] [address] documented as of this encounter Visit Diagnoses Not on filedocumented in this encounter Care Teams Clinical Sciences Professor Relationship Specialty Start Date End Date Funmi Easton MD PCP - General Family Medicine 03/20/19 04/04/22 Lorenza Hodge FNP PCP - General Family Medicine 04/05/22 02/01/23 Sherri Selby MD 230 [place] [address] PCP - General Internal Medicine 02/02/23 Liane Alfred MD [address] [place] [address] [place] [address] Neurology 12/25/24 Holly Araujo NP [address] [place] [address] Urology 12/25/24 Shefali Delgado MD [address] [place] [address] Hematology and Oncology 12/25/24 [facility] 759 [facility] [address] [phone] (Fax) 12/25/24 [facility]) [address] 2[address] Floor [address] [facility] [address] 12/25/24 documented as of this encounter
--- OUTSIDE RECORDS SUMMARY | 2025-01-30 15:54 | XMS_ITS | Encounter Summary ---
Author Organization [employer] Address [address] [facility] 7t [place] [address] Care Team Providers Care Dance Artist Name Role Phone Lorenza Hodge Primary Care Provider Sherri Leyva MD Primary Care Pro vider Liane Alfred MD Unavailable [phone] Holly Araujo NP Unavailable Shefali Delgado MD Unavailable [phone] Encounter Details Date Type Department Care Team (Late st Contact Info) Description 11/25/2022 Orders Only [facility] MEDICINE [address] [place] [address] Lorenza Hodge FNP Social History Tobacco Use [...] 02/28/2025 2:45 PM EDT Office Visit [facility] MEDICINE 230 [place] [address] Sherri Selby MD 230 [place], [place] [phone] 05/24/2025 10:00 AM EST Office Visit [facility] OPTOMETRY [address] [place] [employer], [place] [phone] Mitali Kirby, OD 267 [place] [address] documented as of this encounter Procedures Procedure Name Priority Date/Time Associated Diagnosis Comments US RENAL BI Routine 12/06/2022 1:54 PM EDT documented in this encounter Results * US RENAL BI (12/06/2022 1:54 PM EDT) Anatomical Region Laterality Modality Abdomen Ultrasound 12/06/2022 1:54 PM EDT Narrative 12/09/2022 6:44 PM EDT [address] [address] Ultrasound Report Signed Patient: Inderjit Stoner MR #: [id number] : [id number] Acct:[id number] Age/Sex: 62 / M ADM Date: 12/06/22 Loc: HO.US Attending Dr: Lorenza Hodge DIVERSIFIED CROPS I FARMWORKER Ordering Physician: Lorenza Hodge Date of Service: 12/06/22 Procedure(s): US renal BI Accession Number(s): [id number] cc: Lorenza Hodge DIVERSIFIED CROPS I FARMWORKER EXAMINATION: US RETROPERITONEAL LIMITED (RENAL ONLY) CLINICAL [...] MD in OV> 12/09/221840 DD/ 1354 TD/TT: Field Crop Farming Supervisor: Procedure Note Donotuseinterpreter, Image - 12/09/[address] [address] Ultrasound Report Signed Patient: Inderjit Stoner AMR #: [id number] : [id number]:[id number] Age/Sex: 62 / MADM Date: 12/06/22 Loc: HO.US Attending Dr: Lorenza Hodge DIVERSIFIED CROPS I FARMWORKER Ordering Physician: Lorenza Hodge Date of Service: 12/06/22 Procedure(s): US renal BI Accession Number(s): [id number] cc: Lorenza Hodge EXAMINATION: US RETROPERITONEAL LIMITED [...] MD in OV> 12/09/221840 DD/ 1354 TD/TT: Field Crop Farming Supervisor: us Lorenza Hodge DIVERSIFIED CROPS I FARMWORKER IMG US PROCEDURES Edited R esult - Final documented in this encounter Visit Diagnoses Not on filedocumented in this encounter Additional Health Concerns Assessment Noted Time PHQ-9 Depression Total Score: 16 08/10/ 023 9:09 AM EDT documented as of this encounter Care Teams Dance Artist Relationship Specialty Start Date End Date Lorenza Hodge FNP PCP - General Family Medicine 04/05/22 02/01/23 Sherri Selby MD 230 [place] [address] PCP - General Internal Medicine 02/02/23 Liane Alfred MD [address] [place] [address] Dr Cleaning [address] [place] [address] Neurology 12/25/24 Holly Araujo NP [address] [place] [address] Urology 12/25/24 Shefali Delgado MD [address] [place] [address] Hematology and Oncology 12/25/24 [facility] [address] [facility] [address] [phone] (Fax) 12/25/24 [facility]) [address] [place] [address] 2nd Floor [address] [facility] [address] 12/25/24 documented as of this encounter
== END 2025-01-30 12:37 | disposition home or self-care (01) ==
LOC: HO.HSM 12:26
PROVIDERS: PCP Student in an Organized Health Care Education/Training Program; Referring Provider Student in an Organized Health Care Education/Training Program; Visit Provider Psychiatry & Neurology Neurology
DX: G40.209 Localization-related (focal) (partial) symptomatic epilepsy and epileptic syndromes with complex partial seizures, not intractable, without status epilepticus (principal); R25.1 Tremor, unspecified; G43.009 Migraine without aura, not intractable, without status migrainosus
CPT/HCPCS: 99214

== ENCOUNTER → 2025-01-30 12:25 | Outpatient (BNVA) | payer OTHER, SELFPAY | PROVIDERS: PCP Student in an Organized Health Care Education/Training Program; Referring Provider Student in an Organized Health Care Education/Training Program; Visit Provider Psychiatry & Neurology Neurology | DX: G43.009 Migraine without aura, not intractable, without status migrainosus (principal); G40.209 Localization-related (focal) (partial) symptomatic epilepsy and epileptic syndromes with complex partial seizures, not intractable, without status epilepticus; R25.1 Tremor, unspecified | CPT/HCPCS: 99212 ==

== ENCOUNTER 2025-02-27 09:00 | Outpatient (REF) | payer OTHER, SELFPAY ==
--- OUTSIDE RECORDS SUMMARY | 2025-02-27 09:50 | XMS_ITS | Encounter Summary ---
Author Organization [employer] Address [address] [place] [address] 7t [place] [address] Care Team Providers Care Recruiting Operations Consultant Name Role Phone Funmi Easton MD Primary Care Provider Lorenza Stroud Primary Care Provider Sherri Leyva MD Primary Care Pro vider Liane Alfred MD Unavailable [phone] Holly Araujo NP Unavailable Shefali Delgado MD Unavailable [phone] Encounter Details Date Type Department Care [...] Care Team (Late st Contact Info) Description 03/01/2025 1:30 PM EDT Office Visit [facility] MEDICINE 230 [place], [place] [phone] Sherri Selby MD 230 [place], [place] [phone] 05/24/2025 10:00 AM EST Office Visit [facility] OPTOMETRY 267 [place], [place] [phone] Mitali Kirby, OD [address] [place] [address] documented as of this encounter Visit Diagnoses Not on filedocumented in this encounter Care Teams Recruiting Operations Consultant Relationship Specialty Start Date End Date Funmi Easton MD PCP - General Family Medicine 03/20/19 04/04/22 Lorenza Hodge FNP PCP - General Family Medicine 04/05/22 02/01/23 Sherri Selby MD 230 [place] [address] PCP - General Internal Medicine 02/02/23 Liane Alfred MD [address] [place] [address] [place] [address] Neurology 12/25/24 Holly Araujo NP [address] [place] [address] Urology 12/25/24 Shefali Delgado MD [address] [place] [address] Hematology and Oncology 12/25/24 [facility] 759 [facility] [address] [phone] (Fax) 12/25/24 [facility]) [address] Floor [address] [facility] [address] 12/25/24 documented as of this encounter
--- OUTSIDE RECORDS SUMMARY | 2025-02-27 09:50 | XMS_ITS | Encounter Summary ---
Author Organization [employer] Address [address] [place] [address] 7t [place] [address] Care Team Providers Care Pmo Project Manager Name Role Phone Funmi Easton MD Primary Care Provider Lorenza Stroud Primary Care Provider Sherri Leyva MD Primary Care Pro vider Liane Alfred MD Unavailable Holly Araujo NP Unavailable Shefali Delgado MD Unavailable [phone] Encounter Details Date Type Department Care Team (Latest Contact Info) Description 03/23/[address] [facility] CONVERSIONS Dental, Provider, DDS Social History [...] Description 03/01/2025 1:30 PM EDT Office Visit [facility] MEDICINE 230 [place], [place] [phone] Sherri Selby MD 230 [place], [place] [phone] 05/24/2025 10:00 AM EST Office Visit [facility] OPTOMETRY 267 [place], [place] [phone] Mitali Kirby, OD [address] [place] [address] documented as of this encounter Visit Diagnoses Not on filedocumented in this encounter Care Teams Pmo Project Manager Relationship Specialty Start Date End Date Funmi Easton MD PCP - General Family Medicine 03/20/19 04/04/22 Lorenza Hodge FNP PCP - General Family Medicine 04/05/22 02/01/23 Sherri Selby MD 230 [place] [address] PCP - General Internal Medicine 02/02/23 Liane Alfred MD [address] [place] [address] [place] [address] Neurology 12/25/24 Holly Araujo NP [address] [place] [address] Urology 12/25/24 Shefali Delgado MD [address] [place] [address] Hematology and Oncology 12/25/24 [facility] 759 [facility] [address] [phone] (Fax) 12/25/24 [facility] ([facility]) [address] 2[address] Floor [address] [facility] [address] 12/25/24 documented as of this encounter
--- OUTSIDE RECORDS SUMMARY | 2025-02-27 09:50 | XMS_ITS | Encounter Summary ---
Author Organization [employer] Address 75 [facility] 7t [place] [address] Care Team Providers Care Security Officer Name Role Phone Lorenza Hodge Primary Care Provider Sherri Leyva MD Primary Care Pro vider Liane Alfred MD Unavailable [phone] Holly Araujo NP Unavailable Shefali Delgado MD Unavailable [phone] Encounter Details Date Type Department Care Team (Late st Contact Info) Description 11/25/2022 Orders Only [facility] MEDICINE [address] [place] [address] Lorenza Hodge FNP Social History Tobacco Use [...] Description 03/01/2025 1:30 PM EDT Office Visit [facility] MED[facility]INE [address] [place] [address] Sherri Selby MD [address] [place], [place] [phone] 05/24/2025 10:00 AM EST Office Visit [facility] OPTOMETRY [address] [place], [place] [phone] Mitali Kirby, OD [address] [place] [address] documented as of this encounter Procedures Procedure Name Priority Date/Time Associated Diagnosis Comments US RENAL BI Routine 12/06/2022 1:54 PM EDT documented in this encounter Results * US RENAL BI (12/06/2022 1:54 PM EDT) Anatomical Region Laterality Modality Abdomen Ultrasound 12/06/2022 1:54 PM EDT Narrative 12/09/2022 6:44 PM EDT [address] [address] Ultrasound Report Signed Patient: Inderjit Stoner MR #: [id number] : [id number] Acct:[id number] Age/Sex: 62 / M ADM Date: 12/06/22 Loc: HO.US Attending Dr: Lorenza Hodge WARP PLACER Ordering Physician: Lorenza Hodge Date of Service: 12/06/22 Procedure(s): US renal BI Accession Number(s): [id number] cc: Lorenza Hodge WARP PLACER EXAMINATION: US RETROPERITONEAL LIMITED (RENAL ONLY) CLINICAL [...] MD in OV> 12/09/221840 DD/ 1354 TD/TT: Med Asst: Procedure Note Donotuseinterpreter, Image - 12/09/[address] [address] Ultrasound Report Signed Patient: Inderjit Stoner AMR #: [id number] : [id number]:[id number] Age/Sex: 62 / MADM Date: 12/06/22 Loc: HO.US Attending Dr: Lorenza Hodge WARP PLACER Ordering Physician: Lorenza Hodge Date of Service: 12/06/22 Procedure(s): US renal BI Accession Number(s): [id number] cc: Lorenza Hodge EXAMINATION: US RETROPERITONEAL LIMITED [...] MD in OV> 12/09/221840 DD/ 1354 TD/TT: Med Asst: us Lorenza Hodge WARP PLACER IMG US PROCEDURES Edited R esult - Final documented in this encounter Visit Diagnoses Not on filedocumented in this encounter Additional Health Concerns Assessment Noted Time PHQ-9 Depression Total Score: 16 08/10/ 023 9:09 AM EDT documented as of this encounter Care Teams Security Officer Relationship Specialty Start Date End Date Lorenza Hodge FNP PCP - General Family Medicine 04/05/22 02/01/23 Sherri Selby MD [address] [place] [address] PCP - General Internal Medicine 02/02/23 Liane Alfred MD [address] [place] [address] Dr Cleaning [address] [place] [address] Neurology 12/25/24 Holly Araujo NP [address] [place] [address] Urology 12/25/24 Shefali Delgado MD [address] [place] [address] Hematology and Oncology 12/25/24 [facility] [address] [place] [address] [phone] (Fax) 12/25/24 [facility] [address] [place] [address] 2nd Floor [address] [facility] [address] 12/25/24 documented as of this encounter
--- OUTSIDE RECORDS SUMMARY | 2025-02-27 09:50 | XMS_ITS | Encounter Summary ---
Author Organization [employer] Address 75 [facility] 7t [place] [address] Care Team Providers Care Collections Associate Name Role Phone Sherri Selby MD Primary Care Pro vider Liane Alfred MD Unavailable [phone] Holly Aruajo NP Unavailable Shefali Delgado MD Unavailable [phone] Reason for Visit * Reason Comments Med Refill Encounter Details Date Type Department Care Team (Late st Contact Info) Description 09/01/2024 Refill [facility] MED[facility] 230 [place], [place] [phone] Sherri Selby MD 230 [place], [place] [phone] Flank pain Social History Tobacco Use Types [...] Description 03/01/2025 1:30 PM EDT Office Visit [facility] MED[facility]INE [address] [place] [address] Sherri Selby MD [address] [place] [address] 05/24/2025 10:00 AM EST Office Visit [facility] OPTOMETRY [address] [place] [address] Mitali Kirby, OD [address] [place] [address] documented as of this encounter Visit Diagnoses Diagnosis Flank pain Abdominal pain, unspecified site documented in this encounter Additional Health Concerns Assessment Noted Time PHQ-9 Depression Total Score: 7 08/18/19 25 9:01 AM EDT documented as of this encounter Care Teams Collections Associate Relationship Specialty Start Date End Date Sherri Selby MD [address] [place] [address] PCP - General Internal Medicine 02/02/23 Liane Alfred MD [address] [place] [address] Neurology 12/25/24 Holly Araujo NP [address] [place] [address] Urology 12/25/24 Shefali Delgado MD [address] [place] [address] Hematology and Oncology 12/25/24 [facility] 7[address] [facility] [address] [phone] (Fax) 12/25/24 [facility] [address] 2nd Floor [address] [facility] [address] 12/25/24 documented as of this encounter
--- OUTSIDE RECORDS SUMMARY | 2025-02-27 09:50 | XMS_ITS | Clinical Summary ---
Author Organization [facility] Address [address] [place] [address] Phone Care Team Providers Care Sheriff Detective Name Role Phone Unavailable Primary Care Provider [...] 2010 Zoster Vaccines (1 of 2) 2010 Depression Screening 05/16/2024 COVID-19 Vaccine (1 - 2023-2 5 season) 2025 Influenza Vaccine (#1) 2025 RSV Immunization Adult [...]
--- OUTSIDE RECORDS SUMMARY | 2025-02-27 09:50 | XMS_ITS | Clinical Summary ---
Author Organization [employer] Address 75 [facility] 7t [place] [address] Care Team Providers Care Geospatial Information Scientist Name Role Phone Sherri Selby MD Primary Care Pro vider Liane Alfred MD Unavailable Holly Araujo NP Unavailable Shefali Delgado MD Unavailable [phone] Allergies Active Allergy Reactions Criticality Noted [...] Active pantoprazole (ProtoNix) 40 MG EC tablet 3 Active SM Fiber Laxative 500 MG tablet 2 Active docusate sodium (Colace) 100 MG capsule Take 100 mg by mouth at bedtime. 3 Active nitroglycerin (Nitrostat) 0.4 MG SL tabletIndicatio ns:Atherosclero sis of comanche coronary artery of comanche heart with stable angina pectoris Place 1 tablet (0.4 mg) under the [...] Once per day. 2 cap a day 4 Active terazosin (Hytrin) 5 MG capsule Take 5 mg by mouth 1 (one) time. 4 Active topiramate (Topamax) 25 MG tablet Take 25 mg by mouth at bedtime. 4 Active Linzess 290 MCG capsule Take 290 mcg by mouth in the morning. 4 Active atorvastatin (Lipitor) 80 MG tablet Take 1 tablet (80 mg) by mouth Once per day. TAKE 1 TABLET BY MOUTH AT BEDTIME 90 tablet 3 4 Active lidocaine-prilo dario (Emla) 2.5-2.5 % cream Apply topically if needed each day for mild pain. 30 g 2 5 Active traZODone (Desyrel) 50 MG tablet Take 50 mg by mouth at bedtime. 5 Active hydrOXYzine pamoate (Vistaril) 25 MG capsule 4 Active sodium chloride (Anaconda) 0.65 % nasal spray Administer 1 spray into each nostril if needed for congestion. 15 mL 2 5 08/18/19 26 Active Icosapent Ethyl (Vascepa) 1 g capsule Take 2 capsules (2 g) by mouth with breakfast and with evening meal. 120 capsule 11 5 08/23/19 26 Active acetaminophen (Tylenol 8 Hour) 650 MG ER tablet Take 1 tablet (650 mg) by mouth every 8 (eight) hours if needed for mild pain. Do not crush, chew, or split. 30 tablet 5 Active Multiple Vitamins-Minera ls (CertaVite/Anti oxidants) tablet TAKE 1 TABLET BY MOUTH EVERY MORNING 90 tablet 3 5 Active ezetimibe (Zetia) 10 MG tablet Take 10 mg by mouth in the morning. 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 Injury to L pentecostal about 3 years ago. Last appt 04/28/22 [...] to locate records Gave pt card with [facility] Fax number and have all specialists fax records to this number Continue medications F/u PRN 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) 06/07/2022 Overview (02/02/2023): Dyscognitive seizure disorder with episodes of blurry vision and passing out Care Managed by [facility] Last appt 04/28/22 Treating Keppra 250mg BID [...] to locate records Gave pt card with [facility] Fax number and have all specialists fax records to this number Increased Keppra Dose noted in medication list F/u PRN Severe episode of recurrent major depressive disorder, with psychotic features (CMS/HCC) 11/30/2017 Assessment & Plan (07/20/2023 3:25 PM [...] intervention and Patient to reach out to [facility] team as needed Rule Out Diagnoses [...] Encounters Date Type Department Care Team Description 02/19/2025 Orders Only [facility] [address] [place] [address] Sherri Selby MD Health care maintenance (Primary Dx) 02/19/2025 Telephone [facility] [address] [place] [address] Sherri Selby MD Lab Orders 02/11/2025 Telephone [facility] [address] [place] [address] Sherri Selby MD Appointment 01/07/2025 Refill [facility] [address] [place] [address] Mayelin Robin MD TIA (transient ischemic attack) 12/25/2024 10:00 AM EDT Office Visit [facility] [address] [place] [address] Sherri Selby MD Poor memory (Primary Dx); 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); TIA (transient ischemic attack); Other migraine without status migrainosus, not intractable; Dysphagia, unspecified type; Migraine without aura and without status migrainosus, not intractable 12/25/2024 Travel 12/25/2024 Refill [facility] [address] [place] [address] Sherri Selby MD 12/24/2024 Telephone [facility] [address] [place] [address] Sherri Selby MD chartprep 12/14/2024 11:00 AM EDT Office Visit [facility] ADULT DENTAL [address] [place] [address] Jeremías Teixeira, CESARS Missing teeth, acquired (Primary Dx) from Last 3 Months Immunizations [...] Description 03/01/2025 1:30 PM EDT Office Visit [facility] [address] [place] [address] Sherri Selby MD 230 [place] [address] 05/24/2025 10:00 AM EST Office Visit [facility] OPTOMETRY [address] [place] [address] Mitali Kirby, OD [address] [place] [address] Health Maintenance Due Date Last Done Comments [...] BASE, LEVI Routine 12/14/2024 11:00 AM EDT FECAL GLOBIN BY IMMUNOCHEMISTRY Routine [...] EDT) Fecal Globin By Immunochemistry SEE NOTE [facility] [employer] [facility] Comment: FECAL GLOBIN BY IMMUNOCHEMISTRY Micro Number: [id number] Test Status: Final Specimen Source: Insure (tm) fobt test card Specimen Quality: Inadequate Fecal Globin: Test not performed. The specimen was received in an collection container. Reference Range: Not Detected 10/04/2024 10/11/2024 4:3 0 AM EDT Narrative [facility] - 10/11/2024 4:36 AM EDT FASTING: UNKNOWN Sherri Navarro MD LAB BODY FLUIDS A ND STOOLS ORDERABLES Final Result Performing Organization Address City/[facility]/ZIP Co de Phone Number [employer] [address] [place] [address], [place] [address] [facility] [employer] [address] [place] [phone] * Hemoglobin A1c (09/12/2024 7:47 AM EDT) Hemoglobin A1c 5.8 <6.0 % [facility] Comment:Hemoglobin A1C Refer ence Range Adults: 4.8 - 6.0 % Non diabetic: < 6.0 % Goal: < 7.0 %Additional Action Suggested: > 8.0 %Note: Hemoglobin A1c results are invalid for patients with abnormal amounts of HbF. Blood transfusions may impact the HbA1c concentration in the patient sample. Estimated Average Glucose 120 mg/dL [facility] Comment:eAG = Estimated ave rage glucose which is %A1C expressed asaverage glucose, using the formula of the Y2S-CkollsdMgikyla Glucose study (ADAG), Diabetes Care, Vol.31,#8,Dec. 2007 Blood Venous blood specimen / Unknown 09/12/2024 7:47 AM EDT 09/12/2024 7:47 AM EDT Sherri Navarro MD LAB BLOOD ORDERAB LES Final Result Performing Organization Address City/[facility]/ZIP Co de Phone Number [facility] [address] [place] [phone] * Lipid Panel, Standard (09/12/2024 7:47 AM EDT) Triglycerides 137 <150 mg/dL [facility] Comment:Desirable Triglyceri de: less than 150 mg/dLBorderline High Triglyceride 150-199 mg/dLHigh Triglyceride: 200-499 mg/dLVery High Triglyceride: greater than or equal to 5OO mg/dL Cholesterol 150 <200 mg/dL [facility] Comment:Desirable Cholestero l: less than 200 mg/dLBorderline High Cholesterol: 200-239 mg/dLHigh Cholesterol: greater than 239 mg/dL LDL Cholesterol Calculated 80 <100 mg/dL [facility] Comment:Desirable LDL: less than 100 mg/dLNear Optimal/Above Optimal LDL: 110- 129 mg/dLBorderline High LDL: 130-159 mg/dLHigh LDL: 160-189 mg/dLVery High LDL: greater than or equal to 190 mg/dL HDL Cholesterol 43 >40 mg/dL [facility] Comment:Desirable HDL: great er than 40 mg/dL Note: This HDL assay may give artificially low results in patients with liver disease. Blood Venous blood specimen / Unknown 09/12/2024 7:47 AM EDT 09/12/2024 7:47 AM EDT us Sherri Navarro MD LAB BLOOD ORDERAB LES Final Result Performing Organization Address [facility]/State/ZIP Co de Phone Number [facility] [address] [place] [phone] * Hepatitis C Antibody with Reflex to HCV, RNA, Quantitative, Real-Time PCR (11/16/2023 12:08 PM EDT) Hepatitis C Antibody Nonreactive Nonreactive [facility] Comment:Antibodies to HCV no t detected; does not exclude early acuteHCV infection. Blood Venous blood specimen / Unknown 11/16/2023 12:08 PM EDT 11/16/2023 12:08 PM EDT Sherri Navarro MD LAB BLOOD ORDERAB LES Final Result Performing Organization Address [facility]/ZIP Co de Phone Number [facility] [address] [place] [address] [phone] * HIV-1/2 Antigen and Antibodies, Fourth Generation, with Reflexes (11/16/2023 12:08 PM EDT) HIV AB/AG Nonreactive Nonreactive [facility] Comment:HIV-1 p24 Ag and/or HIV-1/HIV-2 Ab not detected.A test result that is nonreactive does not exclude thepossibility of exposure to or infection with HIV-1 and/orHIV-2. Nonreactive results in this assay for individualswith prior exposure to HIV-1 and/or HIV-2 may be due toantigen and antibody levels that are below the limit ofdetection of this assay.The CrossCurrent HIV Ag/Ab Combo assay result andsupplemental assay results should be interpreted inconjunction with the patient's clinical presentation,history and other laboratory results. If the results areinconsistent with clinical evidence, additional testing issuggested to confirm the result. Blood Venous blood specimen / Unknown 11/16/2023 12:08 PM EDT 11/16/2023 12:08 PM EDT us Sherri Navarro MD LAB BLOOD ORDERAB LES Final Result Performing Organization Address [facility] Co de Phone Number [facility] [address] [place] [address] [phone] from Last 3 Months or Most Recently Relevant to Health Maintenance Insurance * Guarantor: Inderjit Stoner Account Type Relation to Patient Date of Phone Billing Address Personal/Family Self [address] [address] [facility] < 65 [facility] Care Teams Geospatial Information Scientist Relationship Specialty Start Date End Date Sherri Selby MD [address] [place] [address] PCP - General Internal Medicine 02/02/23 Liane Alfred MD [address] [place] [address] [address] [place], [place] Neurology 12/25/24 Holly Araujo NP [address] [place] [address] Drive [address] [place], [place] Urology 12/25/24 Shefali Delgado MD [address] [place] [address] [place] [address] Hematology and Oncology 12/25/24 [facility] [address] [facility] [address] [phone] (Fax) 12/25/24 [facility]) [address] 2nd Floor [address] [place] [address] 12/25/24
--- OUTSIDE RECORDS SUMMARY | 2025-02-27 09:50 | XMS_ITS | Encounter Summary ---
Author Organization [employer] Address [address] [place] [address] 7t [place] [address] Care Team Providers Care Ammonia Operator Name Role Phone Funmi [place] MD Primary Care Provider Lorenza Stroud Primary Care Provider Sherri Leyva MD Primary Care Pro vider Liane Alfred MD Unavailable Holly Araujo NP Unavailable Shefali Delgado MD Unavailable [phone] Encounter Details Date Type Department Care Team (Latest Contact Info) Description 05/02/2019 Abstract [facility] CONVERSIONS Dental, Provider, DDS Social [...] Description 03/01/2025 1:30 PM EDT Office Visit [facility] MEDICINE [address] [place], [place] [phone] Sherri Selby MD 230 [place], [place] [phone] 05/24/2025 10:00 AM EST Office Visit [facility] OPTOMETRY [address] [place], [place] [phone] Kofi Mitali, OD [address] [place] [address] documented as of this encounter Visit Diagnoses Not on filedocumented in this encounter Care Teams Ammonia Operator Relationship Specialty Start Date End Date Funmi [place] MD PCP - General Family Medicine 03/20/19 04/04/22 Lorenza Hodge FNP PCP - General Family Medicine 04/05/22 02/01/23 Sherri Selby MD [address] [place] [address] PCP - General Internal Medicine 02/02/23 Liane Alfred MD [address] [place] [address] [place] [address] Neurology 12/25/24 Holly Araujo NP [address] [place] [address] Urology 12/25/24 Shefali Delgado MD [address] [place] [address] Hematology and Oncology 12/25/24 [facility] [address] [facility] [address] [phone] (Fax) 12/25/24 [facility]) [address] 2nd Floor [address] [facility] [address] 12/25/24 documented as of this encounter
--- OUTSIDE RECORDS SUMMARY | 2025-02-27 09:50 | XMS_ITS | Encounter Summary ---
Author Organization [employer] Address 75 [facility] 7t [place] [address] Care Team Providers Care Shoulder Joiner Name Role Phone Lorenza Hodge DAIRY CATTLE FARMER Primary Care Provider Sherri Leyva MD Primary Care Pro vider Liane Alfred MD Unavailable Holly Araujo NP Unavailable Shefali Delgado MD Unavailable [phone] Reason for Visit * Reason Onset Date Comments triage 06/11/2022 Encounter Details Date Type Department Care Team (Late st Contact Info) Description 06/11/2022 Telephone [facility] MEDICINE [address] [place] [address] [phone] Lorenza Hodge FNP triage Social History Tobacco [...] on pt. Voice mail to call back [facility] nurses at [phone] or if emergent care needed to go [...] Description 03/01/2025 1:30 PM EDT Office Visit [facility] MED[facility]INE [address] [place] [address] Sherri Selby MD [address] [place] [address] 05/24/2025 10:00 AM EST Office Visit [facility] OPTOMETRY [address] [place] [address] Mitali Kirby, OD [address] [place] [address] documented as of this encounter Visit Diagnoses Not on filedocumented in this encounter Care Teams Shoulder Joiner Relationship Specialty Start Date End Date Lorenza Hodge FNP PCP - General Family Medicine 04/05/22 02/01/23 Sherri Selby MD [address] [place] [address] PCP - General Internal Medicine 02/02/23 Liane Alfred MD [address] [facility] [place] [address] Neurology 12/25/24 Holly Araujo NP [address] [place] [address] Urology 12/25/24 Shefali Delgado MD [address] [place] [address] Hematology and Oncology 12/25/24 [facility] [address] [facility] [address] [phone] (Fax) 12/25/24 [facility]) [address] 2[address] Floor [address] [facility] [address] 12/25/24 documented as of this encounter
--- OUTSIDE RECORDS SUMMARY | 2025-02-27 09:50 | XMS_ITS | Encounter Summary ---
Author Organization [employer] Address 75 [facility] 7t [place] [address] Care Team Providers Care Adjunct Teacher Name Role Phone Sherri Selby MD Primary Care Pro vider Liane Alfred MD Unavailable [phone] Holly Araujo NP Unavailable Shefali Delgado MD Unavailable [phone] Reason for Visit * Reason Onset Date Comments Results 05/05/2023 Encounter Details Date Type Department Care Team (Late st Contact Info) Description 05/05/2023 Telephone [facility] MEDICINE 230 [place], [place] [phone] Sherri Selby MD 230 [place], [place] [phone] Results Social History Tobacco Use Types Packs/Day [...] results of spine. Please contact pt at [phone] documented in this encounter Plan of Treatment Upcoming Encounters Date Type Department Care Team (Late st Contact Info) Description 03/01/2025 1:30 PM EDT Office Visit [facility] MEDICINE [address] [place] [address] Sherri Selby MD 230 [place] [address] 05/24/2025 10:00 AM EST Office Visit [facility] OPTOMETRY [address] [place] [address] Mitali Kirby, OD 267 [place] [address] documented as of this encounter Visit Diagnoses Not on filedocumented in this encounter Additional Health Concerns Assessment Noted Time PHQ-9 Depression Total Score: 16 023 9:09 AM EDT documented as of this encounter Care Teams Adjunct Teacher Relationship Specialty Start Date End Date Sherri Selby MD [address] [place] [address] PCP - General Internal Medicine 02/02/23 Liane Alfred MD [address] [place] [address] [place] [address] Neurology 12/25/24 Holly Araujo NP [address] [place] [address] Urology 12/25/24 Shefali Delgado MD [address] [place] [address] Hematology and Oncology 12/25/24 [facility] [address] [place] [phone] (Fax) 12/25/24 [facility] [address] [facility] 2nd Floor [address] [facility] [address] 12/25/24 documented as of this encounter
[2025-02-27 11:13] LABS: MANUAL DIFF FLAG NO
[2025-02-27 11:29] LABS: Hematocrit 46.6 % (42.0-52.0); Hemoglobin 14.6 g/dl (14.0-18.0); Imm Gran Abs Auto 0.01 X10*3/uL (0.00-0.03); Imm Gran Pct Auto 0.2 % (0.0-0.4); Lymphocytes Absolute Auto 2.0 X10*3/uL (1.2-4.9); Mean Corpuscular HGB Conc 31.3 g/dl (31.0-36.0); Mean Corpuscular Hemoglobin 27.0 pg (27.0-33.0); Mean Corpuscular Volume 86.1 fL (80.0-98.0); NRBC Abs Auto 0.000 X10*3/uL (0.0-0.012); NRBC Pct Auto 0.0 /100WBC (0.0-0.2); Platelet Count 211 X10*3/uL (160-400); Red Blood Count 5.41 X10*6/uL (4.60-5.80); White Blood Count 4.3 X10*3/uL (4.8-10.8)
[2025-02-27 11:57] LABS: Alanine Aminotransferase 54 U/L (0-40); Albumin Level 4.5 g/dL (3.5-5.0); Alkaline Phosphatase 84 U/L (39-117); Anion Gap 12 (12-20); Aspartate Amino Transferase 24 U/L (5-37); Blood Urea Nitrogen 16 mg/dL (9-16); Calcium 9.3 mg/dL (8.4-10.2); Carbon Dioxide 25 mmol/L (22-29); Chloride 110 mmol/L (96-108); Cholesterol 160 mg/dL (<200); Estimated Glomerular Filt Rate > 60; HDL Cholesterol 43 mg/dL (>40); Potassium 4.4 mmol/L (3.3-5.1); Sodium 143 mmol/L (135-145); Total Protein 7.0 g/dL (6.5-8.0); Triglycerides 103 mg/dL (<150)
[2025-02-27 12:22] LABS: Folate 13.7 ng/mL (> or = 4.0); Vitamin B12 442 pg/mL (200-900)
[2025-02-27 12:38] LABS: CT PCR Urine NOT DETECTED (Not Detect.); NG PCR Urine NOT DETECTED (Not Detect.)
[2025-02-28 04:15] LABS: Syphilis Screen Nonreactive (Nonreactive)
[2025-02-28 05:01] LABS: HBS Num1 > 1000.00 mIU/mL (0-7.99); HBc Num1 0.06 S/CO (0.00-0.79); HBsAGNum1 0.35 S/CO (0.00-0.99); HIV Num 1 0.04 S/CO (0.00-0.99); Hepatitis B Surface Antigen Negative (Negative); ~HepC Num1 0.06 S/CO (0.00-0.79); ~Hepatitis B Surface Antibody REACTIVE (Nonreactive); ~Hepatitis C Antibody Nonreactive (Nonreactive)
== END 2025-02-27 09:01 | disposition home or self-care (01) ==
LOC: HO.HHCL 09:00
PROVIDERS: PCP Student in an Organized Health Care Education/Training Program; Visit Provider Student in an Organized Health Care Education/Training Program
DX: Z00.00 Encounter for general adult medical examination without abnormal findings (principal); Z13.6 Encounter for screening for cardiovascular disorders; Z11.4 Encounter for screening for human immunodeficiency virus [HIV]; Z13.1 Encounter for screening for diabetes mellitus; Z13.29 Encounter for screening for other suspected endocrine disorder; Z11.8 Encounter for screening for other infectious and parasitic diseases
CPT/HCPCS: 80053; 80061; 82607; 82746; 83036; 84443; 85025; 86704; 86706; 86780; 86803; 87340; 87389; 87491; 87591

== ENCOUNTER 2025-02-28 14:07 | Outpatient (REF) | payer OTHER, SELFPAY ==
--- NOTE | ~2025-02-28 | US_ITS ---
CLINICAL HISTORY: pt w reported mass sensation in neck US right anterior soft tissue neck Comparison: None provided Findings: Sonographic examination of the right anterior soft tissue neck demonstrates no loculated fluid collection or mass identified. The left and right thyroid lobes are homogeneous in echogenicity. Impression: 1. No loculated fluid collection, nodule or mass identified in the right soft tissue neck correspond to patient's clinical history of ???mass sensation in neck.??? This document has been electronically signed by: Ghassan Haskins MD on 03/01/2025 17:35:53
--- OUTSIDE RECORDS SUMMARY | 2025-02-28 17:53 | XMS_ITS | Encounter Summary ---
Author Organization [employer] Address [address] [facility] 7t [place] [address] Care Team Providers Care Document Controller Name Role Phone Sherri Selby MD Primary Care Pro vider Liane Alfred MD Unavailable Holly Araujo NP Unavailable Shefali Delgado MD Unavailable [phone] Reason for Visit * Reason Comments Med Refill Encounter Details Date Type Department Care Team (Late st Contact Info) Description 09/01/2024 Refill [facility] MED[facility] [address] [place], [place] [phone] Sherri Selby MD [address] [place], [place] [phone] Flank pain Social History Tobacco Use Types [...] Description 03/01/2025 1:30 PM EDT Office Visit [facility] [address] [place] [phone] Sherri Selby MD [address] [place] [phone] 05/24/2025 10:00 AM EST Office Visit [facility] OPTOM[facility]RY [address] [place] [address] Mitali Kirby, OD [address] [place] [address] documented as of this encounter Visit Diagnoses Diagnosis Flank pain Abdominal pain, unspecified site documented in this encounter Additional Health Concerns Assessment Noted Time PHQ-9 Depression Total Score: 7 08/18/19 25 9:01 AM EDT documented as of this encounter Care Teams Document Controller Relationship Specialty Start Date End Date Sherri Selby MD [address] [place] [phone] PCP - General Internal Medicine 02/02/23 Liane Alfred MD 15 [facility] [place] [address] Neurology 12/25/24 Holly Araujo NP [address] [place] [address] Urology 12/25/24 Shefali Delgado MD [address] [place] [phone] Hematology and Oncology 12/25/24 [facility] [address] [facility] [address] [phone] (Fax) 12/25/24 [facility]) [address] [facility] [address] 12/25/24 documented as of this encounter
--- OUTSIDE RECORDS SUMMARY | 2025-02-28 17:53 | XMS_ITS | Clinical Summary ---
Author Organization [employer] Address 75 [facility] 7t [place] [address] Care Team Providers Care Dietetic Aide Name Role Phone Sherri Selby MD Primary Care Pro vider Liane Alfred MD Unavailable Holly Araujo NP Unavailable Shefali Delgado MD Unavailable [phone] Allergies Active Allergy Reactions Criticality Noted [...] 0.4 MG SL tabletIndicatio ns:Atherosclero sis of [place] coronary artery of [place] heart with stable angina pectoris Place 1 [...] 25 MG capsule 4 Active sodium chloride ([place]) 0.65 % nasal spray Administer 1 spray [...] hemorrhoids and left sided diverticulosis Atherosclerosis of [place] co 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 Injury to L jainism about 3 years ago. 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) 06/07/2022 Overview (02/02/2023): Dyscognitive seizure disorder with episodes of blurry vision and passing out Care Managed by [facility] Last appt 04/28/22 Treating Keppra 250mg [...] to locate records Gave pt card with [facility] Fax number and have all [...] intervention and Patient to reach out to [facility] team as needed Rule Out Diagnoses [...] Encounters Date Type Department Care Team Description 02/28/2025 Telephone [facility] MEDICINE [address] [place] [phone] Sherri Selby MD chart prep 02/27/2025 Results Follow-Up [facility] [address] [place] [phone] Sherri Selby MD CBC auto differential, Chlamydia/Trichomonas /Neisseria gonorrhoeae, PCR, Urine, Comprehensive Metabolic Panel, Additional followed-up results: 4 02/19/2025 Orders Only [facility] MED[facility] [address] [place] [phone] Sherri Selby MD Health care maintenance (Primary Dx) 02/19/[address] [address] Sherri Selby MD Lab Orders 02/11/[address] [address] Sherri Selby MD Appointment 01/07/2025 Refill [facility] [address] [place] [address] Mayelin Robin MD TIA (transient ischemic attack) 12/25/2024 10:00 AM EDT Office Visit [address] [address] Sherri Selby MD Poor memory (Primary Dx); 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); TIA (transient ischemic attack); Other migraine without status migrainosus, not intractable; Dysphagia, unspecified type; Migraine without aura and without status migrainosus, not intractable 12/25/2024 Travel 12/25/2024 Refill [facility] [address] [place] [address] Sherri Selby MD 12/24/[address] [address] Sherri Selby MD chartprep 12/14/2024 11:00 AM EDT Office Visit [facility] ADULT DENTAL [address] [place] [phone] Jeremías Teixeira, DDS Missing teeth, acquired (Primary Dx) from Last [...] Description 03/01/2025 1:30 PM EDT Office Visit [facility] MEDICINE [address] [place] [address] Sherri Selby MD [address] [place] [address] 05/24/2025 10:00 AM EST Office Visit [facility] OPTOMETRY [address] [place] [address] Mitali Kirby, OD [address] [place] [address] Health Maintenance Due Date Last Done Comments [...] Screening 08/17/2025 08/17/2024 SDOH Screening 08/17/2025 08/17/2024 Colorectal Cancer Screening 10/04/2025 FIT 10/04/2025 10/04/2024, 02/14, 06/05/2023 FOBT 10/04/2025 10/04/2024, 02/14, 06/05/2023 Tobacco Screening 12/25/2025 12/25/2024 Diabetes: Hemoglobin A1C 02/27/2026 025, 09/12/2024, 11/16/2023, Additional history exists Dental X-Ray: Full Mouth 03/25/2026 023, 05/02/2019, 06/16/2018, Additional history exists Lipid Panel 02/27/2030 02/27/2025, 08/16, 03/19/2024, Additional history exists DTaP/Tdap/Td Vaccines (4 - Td or Tdap) 05/20/2030 05/20/2020, 06/14/2015, 06/19/2013 Zoster Vaccines Completed 09/29/2021, 05/02/2019 RSV Patients and Patients Aged 60 years or older Completed 01/10/2024 COVID-19 Vaccine Completed 03/02/2024, 08/2023, 04/13/2022, Additional history exists Hepatitis B Vaccines Completed 08/17/2024, 01/10/2024, 12/07/2023 HIV Screening Completed 02/27/2025, 11/16/2023 Hepatitis C Screening Completed 02/27/2025, 024 HIB Vaccines Aged Out No longer eligi [...] Procedure Name Priority Date/Time Associated Diagnosis Comments VITAMIN B12/FOLATE, SERUM PANEL Routine 02/27/2025 9:09 AM EDT Health care maintenance TSH W/REFLEX TO FT4 Routine 02/27/2025 9 :09 AM EDT Health care maintenance SYPHILIS SCREEN Routine 02/27/2025 9:09 AM EDT Health care maintenance LIPID PANEL, STANDARD Routine 02/27/2025 9:09 AM EDT Health care maintenance HIV 1/2 ANTIGEN/ANTIBODY, FOURTH GENERATION W/RFL Routine 02/27/2025 9:09 AM EDT Health care maintenance HEPATITIS C AB W/REFL TO HCV RNA, QN, PCR Routine 02/27/2025 9:09 AM EDT Health care maintenance HEPATITIS B SURFACE ANTIGEN, EIA Routine 02/27/2025 9:09 AM EDT Health care maintenance HEPATITIS B SURFACE ANTIBODY, QUALITATIVE Routine 02/27/2025 9:09 AM EDT Health care maintenance HEPATITIS B CORE AB TOTAL Routine 02/27/2025 9:09 AM EDT Health care maintenance HEMOGLOBIN A1C Routine 02/27/2025 9:09 AM EDT Health care maintenance COMPREHENSIVE METABOLIC PANEL Routine 02/27/2025 9:09 AM EDT Health care maintenance CHLAMYDIA/TRICHOMONAS/N EISSERIA GONORRHOEAE, PCR, URINE Routine 02/27/2025 9:09 AM EDT Health care maintenance CBC WITH AUTO DIFFERENTIAL Routine 02/27/2025 9:09 AM EDT Health care maintenance CASE PRESENTATION, DETAILED AND EXTENSIVE TREATMENT PLANNING Routine 12/14/2024 11:00 AM EDT 21 ADD TOOTH TO EXISTING PARTIAL DENTURE Routine 12/14/2024 11:00 AM EDT REPAIR RESIN PARTIAL DENTURE BASE, LEVI Routine 12/14/2024 11:00 AM EDT FECAL GLOBIN BY IMMUNOCHEMISTRY Routine 10/04/2024 12:00 AM EDT PROPHYLAXIS - ADULT Routine 06/26/2024 1 :00 PM EST BITEWINGS - 4 RADIOGRAPHIC IMAGES Routine 06/26/2024 1:00 PM EST PERIODIC ORAL EVALUATION - ESTABLISHED PATIENT Routine 06/26/2024 1:00 PM EST Encounter for dental examination Dental calculus Dental plaque Dental caries INTRAORAL - COMPLETE SERIES OF RADIOGRAPHIC IMAGES Routine 03/24/2023 11:00 AM EST Dental calculus Localized gingival recession, moderate Missing teeth, acquired Dental abscess from Last 3 Months or Most Recently Relevant to Health Maintenance Results * Chlamydia/Trichomonas/Neisseria gonorrhoeae, PCR, Urine (02/27/2025 9:09 AM EDT) CT PCR, Urine NOT DETECTED Not Detect. [facility] Comment:A not detected test result does not exclude the possibilityof infection because test results can be affected byimproper specimen collection, concurrent antibiotic therapy,or the number of organisms in the specimen which may bebelow the sensitivity of the test. As with many diagnostictests, results from the Xpert CT/NG assay should beinterpreted in conjunction with other laboratory andclinical data available to the clinician.The Xpert CT/NG assay should not be used for the evaluationof suspected sexual abuse or for other medico-legalindications. Additional testing is recommended in anycircumstance when false positive or false negative resultscould lead to adverse medical, social or psychologicalconsequences. NG PCR, Urine NOT DETECTED Not Detect. [facility] Comment:A not detected test result does not exclude the possibilityof infection because test results can be affected byimproper specimen collection, concurrent antibiotic therapy,or the number of organisms in the specimen which may bebelow the sensitivity of the test. As with many diagnostictests, results from the Xpert CT/NG assay should beinterpreted in conjunction with other laboratory andclinical data available to the clinician.The Xpert CT/NG assay should not be used for the evaluationof suspected sexual abuse or for other medico-legalindications. Additional testing is recommended in anycircumstance when false positive or false negative resultscould lead to adverse medical, social or psychologicalconsequences. Urine (Urine, Random) 02/27/2025 9:09 AM EDT 02/27/2025 11:05 AM EDT us Sherri Navarro MD LAB URINE ORDERAB LES Final Result Performing Organization Address [facility] Co de Phone Number [facility] [address] [place] [phone] * Syphilis Screen (02/27/2025 9:09 AM EDT) Syphilis Screen Nonreactive Nonreactive [facility] Blood 02/27/2025 9:09 AM EDT 02/27/2025 11:17 AM EDT Sherri Navarro MD LAB BLOOD ORDERAB LES Final Result Performing Organization Address [facility] Co de Phone Number [facility] [address] [place] [phone] * Vitamin B12 (Cobalamin) and Folate Panel, Serum (02/27/2025 9:09 AM EDT) Pathologist [facility] Vitamin B12 442 200 - 900 pg/mL [facility] Comment:NORMAL 200-900 PG/ML INDETERMINATE 160-199 PG/ML DEFICIENT < 160 PG/ML Folate 13.7 > or = 4.0 ng/mL [facility] Comment:Reference Values:> o r = 4.0 ng/mL< 4.0 ng/mL suggests folate deficiency Methotrexate, aminopterin and folinic acid(leucovorin) are chemotherapeutic agents whose molecularstructures are similar to folate; therefore, the Architectfolate assay cannot be used for patients using these drugs. Blood 02/27/2025 9:09 AM EDT 02/27/2025 11:17 AM EDT us Sherri Navarro MD LAB BLOOD ORDERAB LES Final Result [facility] [address] [place] [phone] * TSH with Reflex to Free T4 (02/27/2025 9:09 AM EDT) Pathologist [facility] TSH reflex Free T4 1.09 0.32 - 4.0 uIU/mL [facility] Blood 02/27/2025 9:09 AM EDT 02/27/2025 11:17 AM EDT us Sherri Navarro MD LAB BLOOD ORDERAB LES Final Result [facility] [address] [place] [phone] * (ABNORMAL) CBC auto differential (02/27/2025 9:09 AM EDT) [facility] White Blood Count 4.3(L) 4.8 - 10.8 X10*3/uL [facility] Red Blood Count 5.41 4.60 - 5.80 X10*6/uL [facility] Hemoglobin 14.6 14.0 - 18.0 g/dl [facility] Hematocrit 46.6 42.0 - 52.0 % [facility] Mean Corpuscular Volume 86.1 80.0 - 98.0 fL [facility] Mean Corpuscular Hemoglobin 27.0 27.0 - 33.0 pg [facility] Mean Corpuscular HGB Conc 31.3 31.0 - 36.0 g/dl [facility] Red Cell Distribution Width 13.3 11.0 - 16.0 % [facility] Platelet Count 211 160 - 400 X10*3/uL [facility] Mean Platelet Volume 10.5 9.4 - 12.4 fL [facility] Neutrophils Percent Auto 43.3(L) 45 - 73 % [facility] Imm Gran Pct Auto 0.2 0.0 - 0.4 % [facility] Lymphocytes Percent Auto 45.7(H) 20 - 40 % [facility] Monocytes Percent Auto 8.4 2 - 11 % [facility] Eosinophils Percent Auto 1.9 0 - 4 % [facility] Basophils Percent Auto 0.5 0 - 2 % [facility] NRBC Pct Auto 0.0 0.0 - 0.2 /100WBC [facility] Neutrophils Absolute Auto 1.9(L) 2.0 - 8.3 x10*3/uL [facility] Imm Gran Abs Auto 0.01 0.00 - 0.03 X10*3/uL [facility] Lymphocytes Absolute Auto 2.0 1.2 - 4.9 X10*3/uL [facility] Monocytes Absolute Auto 0.4 0.1 - 1.2 X10*3/uL [facility] Eosinophils Absolute Auto 0.1 0.0 - 0.4 X10*3/uL [facility] Basophils Absolute Auto 0.0 0.0 - 0.2 X10*3/uL [facility] NRBC Abs Auto 0.000 0.0 - 0.012 X10*3/uL [facility] Blood Venous blood specimen / Unknown 02/27/2025 9:09 AM EDT 02/27/2025 11:06 AM EDT us Sherri Navarro MD LAB BLOOD ORDERAB LES Final Result [facility] [address] [place] [phone] * Hepatitis C Antibody with Reflex to HCV, RNA, Quantitative, Real-Time PCR (02/27/2025 9:09 AM EDT) Hepatitis C Antibody Nonreactive Nonreactive [facility] Comment:Antibodies to HCV no t detected; does not exclude early acuteHCV infection. Blood Venous blood specimen / Unknown 02/27/2025 9:09 AM EDT 02/27/2025 11:17 AM EDT us Sherri Navarro MD LAB BLOOD ORDERAB LES Final Result [facility] [address] [place] [phone] * Hepatitis B surface antigen, EIA (02/27/2025 9:09 AM EDT) Hepatitis B Surface Ag Negative Negative [facility] Blood Venous blood specimen / Unknown 02/27/2025 9:09 AM EDT 02/27/2025 11:17 AM EDT us Sherri Navarro MD LAB BLOOD ORDERAB LES Final Result [facility] [address] [place] [phone] * Hepatitis B Core Antibody, Total (02/27/2025 9:09 AM EDT) Hepatitis B Core Antibody Nonreactive Nonreactive [facility] Blood Venous blood specimen / Unknown 02/27/2025 9:09 AM EDT 02/27/2025 11:17 AM EDT us Sherri Navarro MD LAB BLOOD ORDERAB LES Final Result Performing Organization Address [facility] Co de Phone Number [facility] [address] [place] [phone] * HIV-1/2 Antigen and Antibodies, Fourth Generation, with Reflexes (02/27/2025 9:09 AM EDT) HIV AB/AG Nonreactive Nonreactive [facility] Comment:HIV-1 p24 Ag and/or HIV-1/HIV-2 Ab not detected.A test result that is nonreactive does not exclude thepossibility of exposure to or infection with HIV-1 and/orHIV-2. Nonreactive results in this assay for individualswith prior exposure to HIV-1 and/or HIV-2 may be due toantigen and antibody levels that are below the limit ofdetection of this assay.The [employer] HIV Ag/Ab Combo assay result andsupplemental assay results should be interpreted inconjunction with the patient's clinical presentation,history and other laboratory results. If the results areinconsistent with clinical evidence, additional testing issuggested to confirm the result. Blood Venous blood specimen / Unknown 02/27/2025 9:09 AM EDT 02/27/2025 11:17 AM EDT us Sherri Navarro MD LAB BLOOD ORDERAB LES Final Result Performing Organization Address [facility]/ZIP Co de Phone Number [facility] [address] [place] [phone] * Hepatitis B Surface Antibody, Qualitative (02/27/2025 9:09 AM EDT) ~Hepatitis B Surface Antibody REACTIVE Nonreactive [facility] Comment:REACTIVE: > 11.99 mI U/mL Blood Venous blood specimen / Unknown 02/27/2025 9:09 AM EDT 02/27/2025 11:17 AM EDT us Sherri Navarro MD LAB BLOOD ORDERAB LES Final Result Performing Organization Address [facility] Co de Phone Number [facility] [address] [place] [phone] * Hemoglobin A1c (02/27/2025 9:09 AM EDT) Hemoglobin A1c 5.7 <6.0 % [facility] Comment:Hemoglobin A1C Refer ence Range Adults: 4.8 - 6.0 % Non diabetic: < 6.0 % Goal: < 7.0 %Additional Action Suggested: > 8.0 %Note: Hemoglobin A1c results are invalid for patients with abnormal amounts of HbF. Blood transfusions may impact the HbA1c concentration in the patient sample. Estimated Average Glucose 117 mg/dL [facility] Comment:eAG = Estimated ave rage glucose which is %A1C expressed asaverage glucose, using the formula of the U6J-DukdnwfCbjaccu Glucose study (ADAG), Diabetes Care, Vol.31,#8,Dec. 2007 Blood Venous blood specimen / Unknown 02/27/2025 9:09 AM EDT 02/27/2025 11:06 AM EDT us Sherri Navarro MD LAB BLOOD ORDERAB LES Final Result Performing Organization Address [facility] Co de Phone Number [facility] [address] [place] [phone] * Lipid Panel, Standard (02/27/2025 9:09 AM EDT) Triglycerides 103 <150 mg/dL [facility] Comment:Desirable Triglyceri de: less than 150 mg/dLBorderline High Triglyceride 150-199 mg/dLHigh Triglyceride: 200-499 mg/dLVery High Triglyceride: greater than or equal to 5OO mg/dL Cholesterol 160 <200 mg/dL [facility] Comment:Desirable Cholestero l: less than 200 mg/dLBorderline High Cholesterol: 200-239 mg/dLHigh Cholesterol: greater than 239 mg/dL LDL Cholesterol Calculated 97 <100 mg/dL [facility] Comment:Desirable LDL: less than 100 mg/dLNear Optimal/Above Optimal LDL: 110- 129 mg/dLBorderline High LDL: 130-159 mg/dLHigh LDL: 160-189 mg/dLVery High LDL: greater than or equal to 190 mg/dL HDL Cholesterol 43 >40 mg/dL [facility] Comment:Desirable HDL: great er than 40 mg/dL Note: This HDL assay may give artificially low results in patients with liver disease. Blood Venous blood specimen / Unknown 02/27/2025 9:09 AM EDT 02/27/2025 11:17 AM EDT us Sherri Navarro MD LAB BLOOD ORDERAB LES Final Result [facility] [address] [place] [phone] * (ABNORMAL) Comprehensive Metabolic Panel (02/27/2025 9:09 AM EDT) Sodium 143 135 - 145 mmol/L [facility] Potassium 4.4 3.3 - 5.1 mmol/L [facility] Chloride 110(H) 96 - 108 mmol/L [facility] Carbon Dioxide 25 22 - 29 mmol/L [facility] Anion Gap 12 12 - 20 [facility] Urea Nitrogen (BUN) 16 9 - 16 mg/dL [facility] Creatinine, Serum 0.93 0.5 - 1.4 mg/dL [facility] Estimated Glomerular Filt Rate >60 [facility] Comment:Chronic Kidney Disea se: Estimated GFR < 60 mL/min/1.97w8Fxquxg Kidney Disease: Estimated GFR < 15 mL/min/1.73m2 Glucose 95 60 - 115 mg/dL [facility] Calcium 9.3 8.4 - 10.2 mg/dL [facility] Bilirubin, Total 0.9 0.0 - 1.0 mg/dL [facility] Aspartate Amino Transferase 24 5 - 37 U/L [facility] Alanine Aminotransferase 54(H) 0 - 40 U/L [facility] Total Protein 7.0 6.5 - 8.0 g/dL [facility] Albumin Level 4.5 3.5 - 5.0 g/dL [facility] Alkaline Phosphatase 84 39 - 117 U/L [facility] Blood Venous blood specimen / Unknown 02/27/2025 9:09 AM EDT 02/27/2025 11:17 AM EDT us Sherri Navarro MD LAB BLOOD ORDERAB LES Final Result Performing Organization Address City/[facility] Co de Phone Number [facility] [address] [place] [address] [phone] * Occult Blood, Fecal, Immunoassay (10/04/2024 12:00 AM EDT) Fecal Globin By Immunochemistry SEE NOTE [employer] [place] [employer] Comment: FECAL GLOBIN BY IMMUNOCHEMISTRY Micro Number: [id number] Test Status: Final Specimen Source: Insure () fobt test card Specimen Quality: Inadequate Fecal Globin: Test not performed. The specimen was received in an collection container. Reference Range: Not Detected 10/04/2024 10/11/2024 4:3 0 AM EDT Narrative [facility] - 10/11/2024 4:36 AM EDT FASTING: UNKNOWN Sherri Navarro MD LAB BODY FLUIDS A ND STOOLS ORDERABLES Final Result Performing Organization Address City/[facility]/ZIP Co de Phone Number [facility] [address], [place] [phone] [facility] [place] [facility] [address] [place] [phone] from Last 3 Months or Most Recently Relevant to Health Maintenance Insurance [facility] CARE < 65 DENTAL - [facility] Care Teams Dietetic Aide Relationship Specialty Start Date End Date Sherri Selby MD [address] [place] [phone] PCP - General Internal Medicine 02/02/23 Liane Alfred MD [address] [facility] [place] [address] Neurology 12/25/24 Holly Araujo NP [address] [place] [address] Urology 12/25/24 Shefali Delgado MD [address] [place] [phone] Hematology and Oncology 12/25/24 [facility] [address] [facility] [address] [phone] (Fax) 12/25/24 [facility] Management ([facility]) [address] Floor [address] [facility] [address] 12/25/24
--- OUTSIDE RECORDS SUMMARY | 2025-02-28 17:54 | XMS_ITS | Encounter Summary ---
Author Organization [email or web address] Address 75 [facility] 7t [place] [address] Care Team Providers Care Applications Development Analyst Name Role Phone Sherri Selby MD Primary Care Pro vider Liane Alfred MD Unavailable [phone] Holly Araujo NP Unavailable Shefali Delgado MD Unavailable [phone] Reason for Visit * Reason Onset Date Comments Results 05/05/2023 Encounter Details Date Type Department Care Team (Late st Contact Info) Description 05/05/2023 Telephone [facility] MEDICINE 230 [place], [place] [phone] Sherri Selby MD 230 [place], [place] [phone] Results Social History Tobacco Use Types Packs/Day [...] results of spine. Please contact pt at [phone] documented in this encounter Plan of Treatment Upcoming Encounters Date Type Department Care Team (Late st Contact Info) Description 03/01/2025 1:30 PM EDT Office Visit [facility] MEDICINE [address] [place] [address] Sherri Selby MD 230 [place] [address] 05/24/2025 10:00 AM EST Office Visit [facility] OPTOMETRY [address] [place] [address] Mitali Kirby, OD 267 [place] [address] documented as of this encounter Visit Diagnoses Not on filedocumented in this encounter Additional Health Concerns Assessment Noted Time PHQ-9 Depression Total Score: 16 023 9:09 AM EDT documented as of this encounter Care Teams Applications Development Analyst Relationship Specialty Start Date End Date Sherri Selby MD 230 [place] [address] PCP - General Internal Medicine 02/02/23 Liane Alfred MD [address] [place] [address] [place] [address] Neurology 12/25/24 Holly Araujo NP [address] [place] [address] Urology 12/25/24 Shefali Delgado MD [address] [place] [address] Hematology and Oncology 12/25/24 [facility] [address] [place] [address] [phone] (Fax) 12/25/24 [facility] [address] [facility] 2nd Floor [address] [facility] [address] 12/25/24 documented as of this encounter
--- OUTSIDE RECORDS SUMMARY | 2025-02-28 17:54 | XMS_ITS | Encounter Summary ---
Author Organization [employer] Address [address] [place] [address] 7t [place] [address] Care Team Providers Care Proposition Player Name Role Phone Funmi Easton MD Primary Care Provider Lorenza Stroud Primary Care Provider Sherri Leyva MD Primary Care Pro vider Liane Alfred MD Unavailable Holly Araujo NP Unavailable Shefali Delgado MD Unavailable [phone] Encounter Details Date Type Department Care Team (Latest Contact Info) Description 12/24/2021 Abstract [facility] CONVERSIONS Dental, Provider, DDS Social History Tobacco [...] Description 03/01/2025 1:30 PM EDT Office Visit [facility] MEDICINE 230 [place], [place] [phone] Sherri Selby MD 230 [place], [place] [phone] 05/24/2025 10:00 AM EST Office Visit [facility] OPTOMETRY 267 [place], [place] [phone] Mitali Kirby, OD [address] [place] [address] documented as of this encounter Visit Diagnoses Not on filedocumented in this encounter Care Teams Proposition Player Relationship Specialty Start Date End Date Funmi Easton MD PCP - General Family Medicine 03/20/19 04/04/22 Lorenza Hodge FNP PCP - General Family Medicine 04/05/22 02/01/23 Sherri Selby MD 230 [place] [address] PCP - General Internal Medicine 02/02/23 Liane Alfred MD [address] [place] [address] [place] [address] Neurology 12/25/24 Holly Araujo NP [address] [place] [address] Urology 12/25/24 Shefali Delgado MD [address] [place] [address] Hematology and Oncology 12/25/24 [facility] 759 [facility] [address] [phone] (Fax) 12/25/24 [facility]) [address] 2nd Floor [address] [facility] [address] 12/25/24 documented as of this encounter
--- OUTSIDE RECORDS SUMMARY | 2025-02-28 17:54 | XMS_ITS | Encounter Summary ---
Author Organization [employer] Address 75 [facility] 7t [place] [address] Care Team Providers Care Crusher Machine Operator Name Role Phone Lorenza Hodge DOGGY DAYC[employer] ACTIVITIES DIRECTOR Primary Care Provider Sherri Leyva MD Primary Care Pro vider Liane Alfred MD Unavailable Holly Araujo NP Unavailable Shefali Delgado MD Unavailable [phone] Reason for Visit * Reason Onset Date Comments triage 06/11/2022 Encounter Details Date Type Department Care Team (Late st Contact Info) Description 06/11/2022 Telephone [facility] MEDICINE [address] [place] [address] [phone] Lorenza Hodge FNP triage Social History Tobacco [...] Voice mail to call back [facility] nurses at [phone] or if emergent care needed to go [...] Description 03/01/2025 1:30 PM EDT Office Visit [facility] MEDICINE [address] [place] [address] Sherri Selby MD [address] [place] [address] 05/24/2025 10:00 AM EST Office Visit [facility] OPTOMETRY 267 [place] [address] Mitali Kirby, OD 267 [place] [address] documented as of this encounter Visit Diagnoses Not on filedocumented in this encounter Care Teams Crusher Machine Operator Relationship Specialty Start Date End Date Lorenza Hodge FNP PCP - General Family Medicine 04/05/22 02/01/23 Sherri Selby MD [address] [place] [address] PCP - General Internal Medicine 02/02/23 Liane Alfred MD [address] [facility] [place] [address] Neurology 12/25/24 Holly Araujo NP [address] [place] [address] Urology 12/25/24 Shefali Delgado MD [address] [place] [address] Hematology and Oncology 12/25/24 [facility] 759 [facility] [address] [phone] (Fax) 12/25/24 [facility] [address] 2nd Floor [address] [facility] [address] 12/25/24 documented as of this encounter
--- OUTSIDE RECORDS SUMMARY | 2025-02-28 17:54 | XMS_ITS | Encounter Summary ---
Author Organization [employer] Address 75 [facility] 7t [place] [address] Care Team Providers Care Bulk Picker Name Role Phone Sherri Selyb MD Primary Care Pro vider Liane Alfred MD Unavailable Holly Araujo NP Unavailable Shefali Delgado MD Unavailable [phone] Reason for Visit * Reason Onset Date Comments chart prep 02/28/2025 Encounter Details Date Type Department Care Team (Late st Contact Info) Description 02/28/2025 Telephone [facility] MEDICINE 230 [place], [place] [phone] Sherri Selby MD 230 [place], [place] [phone] chart prep Social History Tobacco Use Types Packs/Day Years [...] encounter Miscellaneous Notes * Telephone Encounter - Myrtle Schmid [place] - 02/28/2025 11:42 AM EDT Chart Prep Labs: done Images: appointment pending Referrals: complete Vaccines due: Flu and PCV20 Screenings: not applicable Overdue care gaps: Not applicable documented in this encounter Plan of Treatment Upcoming Encounters Date Type Department Care Team (Late st Contact Info) Description 03/01/2025 1:30 PM EDT Office Visit [facility] MEDICINE 230 [place] [address] Sherri Selby MD 230 [place] [address] 05/24/2025 10:00 AM EST Office Visit [facility] OPTOMETRY 267 [place] [address] Mitali Kirby, OD 267 [place] [address] documented as of this encounter Visit Diagnoses Not on filedocumented in this encounter Additional Health Concerns Assessment Noted Time PHQ-9 Depression Total Score: 7 08/18/19 25 9:01 AM EDT documented as of this encounter Care Teams Bulk Picker Relationship Specialty Start Date End Date Sherri Selby MD 230 [place] [address] PCP - General Internal Medicine 02/02/23 Liane Alfred MD [address] [place] [address] [address] Neurology 12/25/24 Holly Araujo NP [address] [place] [address] Urology 12/25/24 Shefali Delgado MD [address] [place] [address] Hematology and Oncology 12/25/24 [facility] [address] [facility] [place] [address] [phone] (Fax) 12/25/24 [facility] 10 [facility] 2nd Floor [address] [facility] [address] 12/25/24 documented as of this encounter
--- OUTSIDE RECORDS SUMMARY | 2025-02-28 17:54 | XMS_ITS | Encounter Summary ---
Author Organization [employer] Address [address] [place] [address] 7t [place] [address] Care Team Providers Care Case Therapist Name Role Phone Funmi Easton MD Primary Care Provider Lorenza Stroud Primary Care Provider Sherri Leyva MD Primary Care Pro vider Liane Alfred MD Unavailable [phone] Holly Araujo NP Unavailable Shefali Delgado MD Unavailable [phone] Encounter Details Date Type Department Care Team (Latest Contact Info) Description 05/02/2019 Abstract [facility] CONVERSIONS Dental, Provider, DDS Social [...] Description 03/01/2025 1:30 PM EDT Office Visit [facility] MEDICINE 230 [place], [place] [phone] Sherri Selby MD 230 [place], [place] [phone] 05/24/2025 10:00 AM EST Office Visit [facility] OPTOMETRY [address] [place], [place] [phone] Kofi Mitali, OD [address] [place] [address] documented as of this encounter Visit Diagnoses Not on filedocumented in this encounter Care Teams Case Therapist Relationship Specialty Start Date End Date Funmi Easton MD PCP - General Family Medicine 03/20/19 04/04/22 Lorenza Hodge FNP PCP - General Family Medicine 04/05/22 02/01/23 Sherri Selby MD 230 [place] [address] PCP - General Internal Medicine 02/02/23 Liane Alfred MD [address] [place] [address] [place] [address] Neurology 12/25/24 Holly Araujo NP [address] [place] [address] Urology 12/25/24 Shefali Delgado MD [address] [place] [address] Hematology and Oncology 12/25/24 [facility] 759 [facility] [address] [phone] (Fax) 12/25/24 [facility]) [address] 2nd Floor [address] [facility] [address] 12/25/24 documented as of this encounter
--- OUTSIDE RECORDS SUMMARY | 2025-02-28 17:54 | XMS_ITS | Encounter Summary ---
Author Organization [employer] Address 75 [facility] 7t [place] [address] Care Team Providers Care Lymphedema Therapist Name Role Phone Lorenza Hodge Primary Care Provider Sherri Leyva MD Primary Care Pro vider Liane Alfred MD Unavailable [phone] Holly Araujo NP Unavailable Shefali Delgado MD Unavailable [phone] Encounter Details Date Type Department Care Team (Late st Contact Info) Description 11/25/2022 Orders Only [facility] MEDICINE [address] [place] [address] Lorenza Hodge FNP Social History Tobacco Use [...] Visit [facility] MEDICINE 230 [place] [address] Sherri Selby MD 230 [place], [place] [phone] 05/24/2025 10:00 AM EST Office Visit [facility] OPTOMETRY 267 [place], [place] [phone] Mitali Kirby, OD 267 [place] [address] documented as of this encounter Procedures Procedure Name Priority Date/Time Associated Diagnosis Comments US RENAL BI Routine 12/06/2022 1:54 PM EDT documented in this encounter Results * US RENAL BI (12/06/2022 1:54 PM EDT) Anatomical Region Laterality Modality Abdomen Ultrasound 12/06/2022 1:54 PM EDT Narrative 12/09/2022 6:44 PM EDT [address] [address] Ultrasound Report Signed Patient: Inderjit Stoner MR #: [id number] : [id number] Acct:[id number] Age/Sex: 62 / M ADM Date: 12/06/22 Loc: HO.US Attending Dr: Lorenza Hodge MAINTENANCE OF WAY CLERK Ordering Physician: Lorenza Hodge Date of Service: 12/06/22 Procedure(s): US renal BI Accession Number(s): [id number] cc: Lorenza Hodge MAINTENANCE OF WAY CLERK EXAMINATION: US RETROPERITONEAL LIMITED (RENAL ONLY) CLINICAL [...] MD in OV> 12/09/221840 DD/ 1354 TD/TT: Combatant Diver Officer: Procedure Note Donotuseinterpreter, Image - 12/09/[address] [address] Ultrasound Report Signed Patient: Inderjit Stoner AMR #: [id number] : [id number]:[id number] Age/Sex: 62 / MADM Date: 12/06/22 Loc: HO.US Attending Dr: Lorenza Hodge MAINTENANCE OF WAY CLERK Ordering Physician: Lorenza Hodge Date of Service: 12/06/22 Procedure(s): US renal BI Accession Number(s): [id number] cc: Lorenza Hodge EXAMINATION: US RETROPERITONEAL LIMITED [...] MD in OV> 12/09/221840 DD/ 1354 TD/TT: Combatant Diver Officer: us Lorenza Hodge MAINTENANCE OF WAY CLERK IMG US PROCEDURES Edited R esult - Final documented in this encounter Visit Diagnoses Not on filedocumented in this encounter Additional Health Concerns Assessment Noted Time PHQ-9 Depression Total Score: 16 08/10/ 023 9:09 AM EDT documented as of this encounter Care Teams Lymphedema Therapist Relationship Specialty Start Date End Date Lorenza Hodge FNP PCP - General Family Medicine 04/05/22 02/01/23 Sherri Selby MD 230 [place] [address] PCP - General Internal Medicine 02/02/23 Liane Alfred MD [address] [place] [address] Dr Cleaning [address] [place] [address] Neurology 12/25/24 Holly Araujo NP [address] [place] [address] Urology 12/25/24 Shefali Delgado MD [address] [place] [address] Hematology and Oncology 12/25/24 [facility] 759 [facility] [address] [phone] (Fax) 12/25/24 [facility]) [address] [place] [address] 2nd Floor [address] [facility] [address] 12/25/24 documented as of this encounter
--- OUTSIDE RECORDS SUMMARY | 2025-02-28 17:54 | XMS_ITS | Encounter Summary ---
Author Organization [employer] Address 75 [facility] 7t [place] [address] Care Team Providers Care Cloth Coverer Name Role Phone Sherri Selby MD Primary Care Pro vider Liane Alfred MD Unavailable Holly Araujo NP Unavailable Shefali Delgado MD Unavailable [phone] Encounter Details Date Type Department Care Team (Latest Contact Info) Description 02/27/2025 Results Follow-Up [facility] [address] [place] [address] [phone] Sherri Selby MD 230 [place], [place] [phone] CBC auto differential, Chlamydia/Trichomonas/ Neisseria gonorrhoeae, PCR, Urine, Comprehensive Metabolic Panel, Additional followed-up results: 4 Social History Tobacco Use Types Packs/Day Years [...] Miscellaneous Notes * Result Encounter Note - Sherri Navarro MD - 02/27/2025 8:59 PM EDT Please call patient to advise to come to already scheduled apt with me to go over abnormal labs Thanks documented in this encounter Plan of Treatment Upcoming Encounters Date Type Department Care Team (Late st Contact Info) Description 03/01/2025 1:30 PM EDT Office Visit [facility] MEDICINE 230 [place], [place] [phone] Sherri Selby MD 230 [place], [place] [phone] 05/24/2025 10:00 AM EST Office Visit [facility] OPTOMETRY 267 [place], [place] [phone] Mitali Kirby, OD 267 [place], [place] [phone] documented as of this encounter Visit Diagnoses Not on filedocumented in this encounter Additional Health Concerns Assessment Noted Time PHQ-9 Depression Total Score: 7 08/18/19 25 9:01 AM EDT documented as of this encounter Care Teams Cloth Coverer Relationship Specialty Start Date End Date Sherri Selby MD 230 [place] [address] PCP - General Internal Medicine 02/02/23 Liane Alfred MD [address] [facility] [address] [place] [address] Neurology 12/25/24 Holly Araujo NP [address] [place] [address] Urology 12/25/24 Shefali Delgado MD [address] [place] [address] Hematology and Oncology 12/25/24 [facility] 759 [facility] [address] [phone] (Fax) 12/25/24 [facility]) [address] 2nd Floor [address] [facility] [address] 12/25/24 documented as of this encounter
--- OUTSIDE RECORDS SUMMARY | 2025-02-28 17:54 | XMS_ITS | Clinical Summary ---
Author Organization [facility] Address [address] [place] [address] Phone Care Team Providers Care Social Service Manager Name Role Phone Unavailable Primary Care [...]
--- OUTSIDE RECORDS SUMMARY | 2025-02-28 17:54 | XMS_ITS | Encounter Summary ---
Author Organization [employer] Address [address] [place] [address] 7t [place] [address] Care Team Providers Care Web Design Specialist Name Role Phone Funmi Easton MD Primary Care Provider Lorenza Stroud Primary Care Provider Sherri Leyva MD Primary Care Pro vider Liane Alfred MD Unavailable Holly Araujo NP Unavailable Shefali Delgado MD Unavailable [phone] Encounter Details Date Type Department Care Team (Latest Contact Info) Description 03/23/2021 Abstract [facility] CONVERSIONS Dental, Provider, DDS Social [...] Description 03/01/2025 1:30 PM EDT Office Visit [facility] MEDICINE 230 [place], [place] [phone] Sherri Selby MD 230 [place], [place] [phone] 05/24/2025 10:00 AM EST Office Visit [facility] OPTOMETRY 267 [place], [place] [phone] Mitali Kirby, OD [address] [place] [address] documented as of this encounter Visit Diagnoses Not on filedocumented in this encounter Care Teams Web Design Specialist Relationship Specialty Start Date End Date Funmi Easton MD PCP - General Family Medicine 03/20/19 04/04/22 Lorenza Hodge FNP PCP - General Family Medicine 04/05/22 02/01/23 Sherri Selby MD 230 [place] [address] PCP - General Internal Medicine 02/02/23 Liane Alfred MD [address] [place] [address] [place] [address] Neurology 12/25/24 Holly Araujo NP [address] [place] [address] Urology 12/25/24 Shefali Delgado MD [address] [place] [address] Hematology and Oncology 12/25/24 [facility] 759 [facility] [address] [phone] (Fax) 12/25/24 [facility]) [address] 2nd Floor [address] [facility] [address] 12/25/24 documented as of this encounter
== END 2025-02-28 14:08 | disposition home or self-care (01) ==
LOC: HO.US 14:07
PROVIDERS: PCP Student in an Organized Health Care Education/Training Program; Visit Provider Student in an Organized Health Care Education/Training Program
DX: R13.10 Dysphagia, unspecified (principal)
CPT/HCPCS: 76536

== ENCOUNTER → 2025-02-28 14:08 | Outpatient (BNV) | payer OTHER, SELFPAY | PROVIDERS: PCP Student in an Organized Health Care Education/Training Program; Visit Provider Radiology Diagnostic Radiology | DX: R22.1 Localized swelling, mass and lump, neck (principal) | CPT/HCPCS: 76536 ==

== ENCOUNTER 2025-03-04 12:41 | Outpatient (AMB) | payer OTHER, SELFPAY ==
--- NOTE | 2025-03-04 12:56 | A.OFFVIS_ITS ---
Intake Visit Reasons: 6 month f/u Allergies No Known Allergies Allergy (Verified 09/17/24 14:37) HPI Comments Details: 64 yo man with tremor, migraine, and dyscognitive seizure disorder with episodes of blurred vision and passing out. He is so so . No recent seizure like episode. He was having some headaches. Sometimes his mind was blocked . It happened two days ago. [facility] Medical History (Updated 01/30/25 @ 12:34 by Liane Alfred MD) TIA (transient ischemic attack) Complex partial seizures Migraine Hand pain Tremor MCI (mild cognitive impairment) CAD (coronary artery disease) Surgical History Hx of colonoscopy History of esophagogastroduodenoscopy (EGD) Family History Father Cancer Throat cancer Mother Cancer Sister FH: kidney cancer Breast cancer Social History Alcohol intake: never Patient Tobacco Use Status: Never used Tobacco Advance Directives Date on File: 02/25/21 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 Gender identity: Male Review of Systems Narrative Constitutional:?No fever, chills, fatigue, weight loss, or night sweats. HEENT:?No headache, vision changes, hearing loss, nasal congestion, sore throat. Neurological:?No dizziness, syncope, seizures, numbness, tingling, weakness, tremors, memory loss. Psychiatric:?No anxiety, depression, mood swings, sleep disturbance, or hallucinations. Endocrine:?No heat/cold intolerance, polydipsia, polyuria, or hair/skin changes. Hematologic/Lymphatic:?No easy bruising, bleeding, or lymphadenopathy. Integumentary (Skin):?No rash, lesions, itching, or color changes. ? Physical Exam Neuro Other: Mental Status: Alert and oriented to person, place, and time. Normal attention. Normal spontaneous speech, fluency, and comprehension. Cranial Nerves: CN II: Visual stewart full to confrontation, visual acuity intact. CN III, IV, : Pupils equal, round, reactive to light and accommodation. Extraocular movements are normal. CN V: Facial sensation is normal. CN VII: Facial movements symmetrical. CN VIII: Hearing intact to bedside conversation is normal. CN IX, X: Palate elevates symmetrically. CN XI: Shoulder shrug and head turn symmetrical. CN XII: Tongue midline without atrophy or fasciculations. Extrapyramidal: Full facial expressions and blinking. No rigidity. Movements are appropriate with no tremor or abnormality. Speech: Normal; no dysarthria or tremor. Assessment & Plan Assessment & Plan (1) Complex partial seizures: Comment: MRI brain WWO at [facility] in October 2024: Minimal MVD Carotid ultrasound at [facility] in Feb 2024: WNL CT brain WO at [facility] in Feb 2024: WNL Amb EEG at [facility] in Jun 2021: R parietal sharps CT brain WO at [facility] in May 2020: WNL NCV/EMG UE 11/09/17 THIS IS A NORMAL STUDY MRI of C spine wtih cont at [facility] in 2013: WNL CT brain w/o cont at [facility] in 2007, 2008, 2011, 2012: ok CTA brain and neck at [facility] in May 2024: OK Routine EEG in office in Aug 2015: [place] Routine EEG in office in Dec 2014: WNL Routine EEG in office in September 2013: WNL Routine EEG at off in November 2020: WNL. Code(s): G40.209 - Localization-related (focal) (partial) symptomatic epilepsy and epileptic syndromes with complex partial seizures, not intractable, without status epilepticus Category: Medical (2) Migraine: Code(s): G43.909 - Migraine, unspecified, not intractable, without status migrainosus Category: Medical Qualifiers: Migraine type: migraine (< 15 days per month) without aura Status migrainosus presence: without status migrainosus Intractability: not intractable Qualified Code(s): G43.009 - Migraine without aura, not intractable, without status migrainosus (3) Tremor: Code(s): R25.1 - Tremor, unspecified Category: Medical Plan Impression: a: Complex partial seizure do b: Migraine Rec: Levetiracetam 500mg bid Topiramate 25mg one at night Orders: Orders EEG Routine Today G40.209 - Localization-related (focal) (partial) symptomatic epilepsy and epileptic syndromes with complex partial seizures, not intractable, without status epilepticus Coding Level of Care Code Est Pt Level 4 (45113) Diagnoses Complex partial seizures G40.209 Migraine without aura and without status migrainosus, not intractable G43.009 Migraine type: migraine (< 15 days per month) without aura Status migrainosus presence: without status migrainosus Intractability: not intractable Tremor R25.1
== END 2025-03-04 13:08 | disposition home or self-care (01) ==
LOC: HO.HSM 12:42
PROVIDERS: PCP Internal Medicine; Referring Provider Internal Medicine; Visit Provider Psychiatry & Neurology Neurology
DX: G40.209 Localization-related (focal) (partial) symptomatic epilepsy and epileptic syndromes with complex partial seizures, not intractable, without status epilepticus (principal); G43.009 Migraine without aura, not intractable, without status migrainosus; R25.1 Tremor, unspecified
CPT/HCPCS: 99214

== ENCOUNTER → 2025-03-04 12:41 | Outpatient (BNVA) | payer OTHER, SELFPAY | PROVIDERS: PCP Internal Medicine; Referring Provider Internal Medicine; Visit Provider Psychiatry & Neurology Neurology | DX: G40.209 Localization-related (focal) (partial) symptomatic epilepsy and epileptic syndromes with complex partial seizures, not intractable, without status epilepticus (principal); G43.009 Migraine without aura, not intractable, without status migrainosus; R25.1 Tremor, unspecified | CPT/HCPCS: 99212 ==

== ENCOUNTER 2025-03-18 13:11 | Outpatient (AMB) | payer OTHER, SELFPAY ==
--- NOTE | 2025-03-18 13:27 | MHC.OFFVIS ---
Intake Visit Reasons: 6m/ PVR Intake Note: Patient is present for PVR Urology Med: Terazosin, Finasteride Antibiotic Allergy: None Blood Thinner: Aspirin PVR: 6ML Transformation Architect Required: No Accompanied by: Self / Same As Patient Allergies No Known Allergies Allergy (Verified 03/18/25 14:01) HPI Comments Details: Inderjit is a pleasant 64-year-old / Malawian speaking male patient of Dr. Hodge. He has a PMH of CAD. He presents to the office today for follow-up of his lower urinary tract symptoms. In discussion with the patient today he continues to report intermittent episodes of dysuria, bladder pressure and urinary hesitancy. He reports feeling originally episodes were infrequent however feels they have become more bothersome. In office SHANNON was performed left-side of the prostate was noted to be boggy otherwise no nodules or masses palpated. We did discussed potential for prostatitis given SHANNON and lower urinary tract symptoms. He reports compliance with finasteride and terazosin as prescribed. Unable to obtain urine for urinalysis as patient unable to void however PVR 6 mL. Previous workup has included a retroperitoneal ultrasound 10/05 noting mild diffuse bladder wall thickening. No stone or masses seen. Bilateral ureteral jets are demonstrated. Pre void bladder volume is approximately 210 mL. Postvoid bladder volume is 2 mL. The kidneys are normal with no calculi hydronephrosis or lesions noted. He had previously tried Flomax with no improvement. He otherwise denies urinary urgency, urinary frequency, incontinence, hematuria, foul smelling urine, changes to urinary stream, flank pain, fever, and or chills. PSAs are as follows: 09/05 2.5, 02/05 2.3, 07/09 2.0, 01/06 2.6, 04/08 2.3, 09/07 2.1 He otherwise offers no other issues or concerns at this time. 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 Gender identity: Male Review of Systems Const All systems reviewed & are unremarkable except as noted in HPI and below Reports as per HPI Eyes Reports no additional complaints ENT Reports no additional complaints Card Reports as per HPI Resp Reports no additional complaints GI Reports no additional complaints Reports as per HPI Musc Reports no additional complaints Neuro Reports no additional complaints Psych Reports no additional complaints Endo Reports no additional complaints Cornell/Lymph Reports no additional complaints Aller/Immun Reports no additional complaints Physical Exam Const General: cooperative, healthy appearing, comfortable, no acute distress, well developed, alert and awake Orientation/consciousness: patient oriented x3 Limitations: no limitations HEENT Head: Yes normal to inspection, Yes normocephalic and Yes atraumatic Ears: hearing grossly normal bilaterally Eyes General: appearance normal, both eyes and all related structures Neck Neck: Yes normal visual inspection and Yes trachea midline Chest Chest palpation & inspection: normal inspection of the chest Resp Effort & Inspection: normal respiratory effort and able to speak in complete sentences Cardio Rate: regular rate GI Inspection: Yes normal to inspection Rectal Exam - Male: Yes visual inspection normal, Yes normal sphincter tone and Yes prostate normal General: Yes no CVA tenderness Back/Spine/Pelvis Back: no CVA tenderness Skin General skin exam: no rashes or lesions noted Neuro General: patient oriented x3 Extrem General: Yes normal to inspection Psych Appearance: grossly normal and well kempt Mental Status: mental status grossly normal Speech and movement: Normal speech and movement present and Clear speech present Affect: normal affect Attitude: cooperative Thought process: Normal thought process present Thought content: Normal thought content present Insight: Fair insight present (Psych) Judgement: Fair judgement present (Psych) Office Procedures Post Void Residual Post Residual Void Post Void Residual (PVR): 6 [id number] Void Residual by ultrasound Assessment & Plan Assessment & Plan (1) Dysuria: Code(s): R30.0 - Dysuria Category: Medical (2) History of urinary hesitancy: Code(s): Z87.898 - Personal history of other specified conditions Category: Medical (3) Prostatitis: Code(s): N41.9 - Inflammatory disease of prostate, unspecified Category: Medical (4) Bladder wall thickening: Code(s): N32.89 - Other specified disorders of bladder Category: Medical (5) Nocturia: Code(s): R35.1 - Nocturia Category: Medical (6) BPH (benign prostatic hyperplasia): Code(s): N40.0 - Benign prostatic hyperplasia without lower urinary tract symptoms Category: Medical Plan Unable to obtain urine for urinalysis as patient unable to void however PVR 6 mL. We did discussed potential for prostatitis given SHANNON as well as lower urinary tract symptoms. Start Bactrim as discussed and prescribed. Continue finasteride and terazosin as prescribed. We did discussed potential near future in office cystoscopy for further assessment evaluation. We discussed bladder triggers and irritants. We did discussed worsening symptoms. All questions were answered. Follow-up in 3 months with PVR; or sooner with any issues, concerns, and or questions. Orders: Orders AMB Post Void Residual by ultrasound Today R35.1 - Nocturia Medications: New sulfamethoxazole-trimethoprim 800-160 mg (Bactrim DS) 1 tab PO BID 28 tabs 0RF 14 days N39.0 - Urinary tract infection, site not specified prednisone 20 mg PO DAILY 5 tabs 0RF 5 days N20.0 - Calculus of kidney Patient Instructions: The patient had an opportunity to ask questions regarding the treatment plan. All questions were answered. Physical exam, labs, and imaging were discussed and reviewed in detail. As well as risks, benefits, and discussion of treatment choices. No major barriers to understanding were identified. The patient expressed understanding and agreement with the above treatment plan. The patient was made aware they should contact our office by phone for worsening of their current condition, the appearance of new symptoms, or with any questions or concerns. Compliance is encouraged with any medications and follow up testing that is ordered. It is a privilege to be allowed the opportunity to participate in? your urological care.? Again, if you have any questions or concerns If you have any questions or concerns please do not hesitate to contact me. The office is [phone]. This note is constructed using voice recognition software. While every effort has been made to ensure accuracy community coordinator errors may have been included. Yours sincerely, ANISH Jain- Coding Level of Care Code Est Pt Level 4 (24598) Diagnoses Dysuria R30.0 History of urinary hesitancy Z87.898 Prostatitis N41.9 Bladder wall thickening N32.89 Nocturia R35.1 BPH (benign prostatic hyperplasia) N40.0 CPT Codes Post Residual Void - PVR CPT Code: 10166-Mbbz Void Residual by ultrasound ([id number])
== END 2025-03-18 14:24 | disposition home or self-care (01) ==
LOC: HO.HUSH 13:12
PROVIDERS: PCP Registered Nurse; Visit Provider Nurse Practitioner Family
DX: R30.0 Dysuria (principal); Z87.898 Personal history of other specified conditions; N41.9 Inflammatory disease of prostate, unspecified; N32.89 Other specified disorders of bladder; R35.1 Nocturia; N40.0 Benign prostatic hyperplasia without lower urinary tract symptoms
CPT/HCPCS: 99214

== ENCOUNTER → 2025-03-18 13:11 | Outpatient (BNVA) | payer OTHER, SELFPAY | PROVIDERS: PCP Registered Nurse; Visit Provider Nurse Practitioner Family | DX: R30.0 Dysuria (principal); N32.89 Other specified disorders of bladder; R35.1 Nocturia; N40.0 Benign prostatic hyperplasia without lower urinary tract symptoms; Z87.898 Personal history of other specified conditions | CPT/HCPCS: 51798; 99212 ==

== ENCOUNTER 2025-03-29 10:43 | Outpatient (REF) | payer OTHER, SELFPAY ==
--- NOTE | 2025-03-29 10:46 | EEG_ITS ---
Reason for Exam: G40.209 Localization-related (focal) (partial) symptomatic epilepsy and epileptic syndromes with complex partial seizures, not intractable, without status epilepticus Roomed Performed:?402 History: TIA, MCI, CAD, complex partial seizures, migraine, hand pain, tremor Medication: levetiracetam, topiramate Technical description:? Photic stimulation: Yes Hyperventilation:?Yes Behavioral state: Cooperative State of Consciousness: Awake Skull defect: None Sedation: None Handedness: Right Duration of study:? 34min ? ? 11sec Description: This was a 16 channel EEG with an EKG lead. Patient was reported awake during the tracing. Background EEG rhythm was medium amplitude mixed theta beta with occasional right hemispheric asymmetric theta range slowing. No definite sharp waves or spikes were noted. Cardiac lead did not reveal any significant abnormality. Impression: Minimally abnormal EEG revealing intermittent right hemispheric slowing with no definite epileptic discharges MTDD
== END 2025-03-29 10:44 | disposition home or self-care (01) ==
LOC: HO.NEURO 10:43
PROVIDERS: PCP Student in an Organized Health Care Education/Training Program; Visit Provider Psychiatry & Neurology Neurology
DX: G40.209 Localization-related (focal) (partial) symptomatic epilepsy and epileptic syndromes with complex partial seizures, not intractable, without status epilepticus (principal)
CPT/HCPCS: 95816

== ENCOUNTER → 2025-03-29 10:46 | Outpatient (BNV) | payer OTHER, SELFPAY | PROVIDERS: PCP Student in an Organized Health Care Education/Training Program; Visit Provider Psychiatry & Neurology Neurology | DX: G40.209 Localization-related (focal) (partial) symptomatic epilepsy and epileptic syndromes with complex partial seizures, not intractable, without status epilepticus (principal) | CPT/HCPCS: 95816 ==

== ENCOUNTER 2025-04-03 11:22 | Outpatient (AMB) | payer OTHER, SELFPAY ==
--- NOTE | 2025-04-03 12:25 | MHC.OFFVIS ---
Intake Visit Reasons: After EEG okay to book per [facility] Allergies No Known Allergies Allergy (Verified 03/18/25 14:01) HPI Comments Details: 64 yo man with tremor, migraine, and dyscognitive seizure disorder with episodes of blurred vision and passing out. He is presenting for a follow-up visit for medication management. He is currently taking Topamax one tablet at night. The patient reports experiencing some dizziness. Recent test results were normal. His sleep and mood are reported to be okay. 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 - Psychiatric: Reports mood is okay. - General: Reports sleep is okay. Physical Exam Neuro Other: Mental Status: Alert and oriented to person, place, and time. Normal attention. Normal spontaneous speech, fluency, and comprehension. Cranial Nerves: CN II: Visual stewart full to confrontation, visual acuity intact. CN III, IV, : Pupils equal, round, reactive to light and accommodation. Extraocular movements are normal. CN V: Facial sensation is normal. CN VII: Facial movements symmetrical. CN VIII: Hearing intact to bedside conversation is normal. CN IX, X: Palate elevates symmetrically. CN XI: Shoulder shrug and head turn symmetrical. CN XII: Tongue midline without atrophy or fasciculations. Extrapyramidal: Full facial expressions and blinking. No rigidity. Movements are appropriate with no tremor or abnormality. Speech: Normal; no dysarthria or tremor. Assessment & Plan Assessment & Plan (1) Complex partial seizures: Comment: EEG at [facility] in Mar 2025: Intermittent R hemispheric slowing MRI brain WWO at [facility] in October 2024: Minimal MVD Carotid ultrasound at [facility] in Feb 2024: WNL CT brain WO at [facility] in Feb 2024: WNL Amb EEG at [facility] in Jun 2021: R parietal sharps CT brain WO at [facility] in May 2020: WNL NCV/EMG UE 11/09/17 THIS IS A NORMAL STUDY MRI of C spine wtih cont at [facility] in 2013: WNL CT brain w/o cont at [facility] in 2007, 2008, 2011, 2012: ok CTA brain and neck at [facility] in May 2024: OK Routine EEG in office in Aug 2015: OK Routine EEG in office in Dec 2014: WNL Routine EEG in office in September 2013: WNL Routine EEG at off in November 2020: WNL. Code(s): G40.209 - Localization-related (focal) (partial) symptomatic epilepsy and epileptic syndromes with complex partial seizures, not intractable, without status epilepticus Category: Medical (2) Migraine: Code(s): G43.909 - Migraine, unspecified, not intractable, without status migrainosus Category: Medical Qualifiers: Migraine type: migraine (< 15 days per month) without aura Status migrainosus presence: without status migrainosus Intractability: not intractable Qualified Code(s): G43.009 - Migraine without aura, not intractable, without status migrainosus (3) Tremor: Code(s): R25.1 - Tremor, unspecified Category: Medical Plan Impression: a: Complex partial seizure do b: Migraine Rec: Levetiracetam 500mg bid Topiramate 25mg one at night I reviewed with the patient that his recent test results were normal and confirmed he is taking Topamax one tablet at night. He reported experiencing some dizziness, but I noted he is doing well overall, and we will not increase the dose at this time. I advised him to continue his current medication regimen without changes and to follow up in six months. Coding Level of Care Code Est Pt Level 3 (07828) Diagnoses Complex partial seizures G40.209 Migraine without aura and without status migrainosus, not intractable G43.009 Migraine type: migraine (< 15 days per month) without aura Status migrainosus presence: without status migrainosus Intractability: not intractable Tremor R25.1
--- OUTSIDE RECORDS SUMMARY | 2025-04-03 22:24 | XMS_ITS | Encounter Summary ---
Author Organization [employer] Address [address] [facility] 7t [place] [address] Care Team Providers Care Civil Celebrant Name Role Phone Funmi Easton MD Primary Care Provider Lorenza Stroud Primary Care Provider Sherri Leyva MD Primary Care Pro vider Liane Alfred MD Unavailable Holly Araujo NP Unavailable Shefali Delgado MD Unavailable [phone] Encounter Details Date Type Department Care Team (Latest Contact Info) Description 05/02/2019 Abstract [facility] CONVERSIONS Dental, Provider, DDS Social [...] Care Team (Late st Contact Info) Description 05/24/2025 10:00 AM EST Office Visit [facility] OPTOMETRY [address] [place], [place] [phone] Mitali Kirby, OD [address] [place], [place] [phone] 07/02/2025 9:00 AM EST Office Visit [facility] MEDICINE [address] [place], [place] [phone] Sherri Selby MD [address] [place] [address] documented as of this encounter Visit Diagnoses Not on filedocumented in this encounter Care Teams Civil Celebrant Relationship Specialty Start Date End Date Funmi Easton MD PCP - General Family Medicine 03/20/19 04/04/22 Lorenza Hodge FNP PCP - General Family Medicine 04/05/22 02/01/23 Sherri Selby MD [address] [place] [address] PCP - General Internal Medicine 02/02/23 Liane Alfred MD [address] [place] [address] [place] [address] Neurology 12/25/24 Holly Araujo NP [address] [place] [address] Urology 12/25/24 Shefali Delgado MD [address] [place] [address] Hematology and Oncology 12/25/24 [facility] [address] [facility] [address] [phone] (Fax) 12/25/24 [facility] Management ([facility]) [address] [facility] [address] 12/25/24 documented as of this encounter
--- OUTSIDE RECORDS SUMMARY | 2025-04-03 22:24 | XMS_ITS | Encounter Summary ---
Author Organization [employer] Address [address] [facility] 7t [place] [address] Care Team Providers Care Cutter Operator Name Role Phone Funmi Easton MD Primary Care Provider Lorenza Stroud Primary Care Provider Sherri Leyva MD Primary Care Pro vider Liane Alfred MD Unavailable Holly Araujo NP Unavailable Shefali Delgado MD Unavailable [phone] Encounter Details Date Type Department Care Team (Latest Contact Info) Description 12/24/2021 Abstract [facility] CONVERSIONS Dental, Provider, DDS Social [...] Description 05/24/2025 10:00 AM EST Office Visit [facility] OPTOMETRY [address] [place], [place] [phone] Mitali Kirby, OD [address] [place], [place] [phone] 07/02/2025 9:00 AM EST Office Visit [facility] MEDICINE [address] [place], [place] [phone] Sherri Selby MD [address] [place] [address] documented as of this encounter Visit Diagnoses Not on filedocumented in this encounter Care Teams Cutter Operator Relationship Specialty Start Date End Date Funmi Easton MD PCP - General Family Medicine 03/20/19 04/04/22 Lorenza Hodge FNP PCP - General Family Medicine 04/05/22 02/01/23 Sherri Selby MD [address] [place] [address] PCP - General Internal Medicine 02/02/23 Liane Alfred MD [address] [place] [address] [place] [address] Neurology 12/25/24 Holly Araujo NP [address] [place] [address] Urology 12/25/24 Shefali Delgado MD [address] [place] [address] Hematology and Oncology 12/25/24 [facility] 9 [facility] [address] [phone] (Fax) 12/25/24 [facility] ([facility]) [address] [facility] [address] 12/25/24 documented as of this encounter
--- OUTSIDE RECORDS SUMMARY | 2025-04-03 22:24 | XMS_ITS | Encounter Summary ---
Author Organization [employer] Address [address] [facility] 7t [place] [address] Care Team Providers Care Incident Response Lead Name Role Phone Lorenza Hodge LOADING UNIT TOOL SETTER Primary Care Provider Sherri Leyva MD Primary Care Pro vider Liane Alfred MD Unavailable [phone] Holly Araujo NP Unavailable Shefali Delgado MD Unavailable [phone] Reason for Visit * Reason Onset Date Comments triage 06/11/2022 Encounter Details Date Type Department Care Team (Late st Contact Info) Description 06/11/2022 Telephone [facility] MEDICINE [address] [place] [address] [phone] Lorenza Hodge FNP triage Social History Tobacco [...] on pt. Voice mail to call back [facility] nurses at [phone] or if emergent care needed to go [...] Description 05/24/2025 10:00 AM EST Office Visit [facility] OPTOMETRY [address] [place] [address] Mitali Kirby, OD [address] [place] [address] 07/02/2025 9:00 AM EST Office Visit [facility] MEDICINE [address] [place] [address] Sherri Selby MD [address] [place] [address] documented as of this encounter Visit Diagnoses Not on filedocumented in this encounter Care Teams Incident Response Lead Relationship Specialty Start Date End Date Lorenza Hodge FNP PCP - General Family Medicine 04/05/22 02/01/23 Sherri Selby MD [address] [place] [address] PCP - General Internal Medicine 02/02/23 Liane Alfred MD [address] [facility] [place] [address] Neurology 12/25/24 Holly Araujo NP [address] [place] [address] Urology 12/25/24 Shefali Delgado MD [address] [place] [address] Hematology and Oncology 12/25/24 [facility] [address] [facility] [address] [phone] (Fax) 12/25/24 [facility] Management ([facility]) [address] [facility] [address] 12/25/24 documented as of this encounter
--- OUTSIDE RECORDS SUMMARY | 2025-04-03 22:24 | XMS_ITS | Encounter Summary ---
Author Organization [employer] Address [address] [facility] 7t [place] [address] Care Team Providers Care Service Station Operator Name Role Phone Sherri Selby MD Primary Care Pro vider Liane Alfred MD Unavailable Holly Araujo NP Unavailable Shefali Delgado MD Unavailable [phone] Reason for Visit * Reason Comments Med Refill Encounter Details Date Type Department Care Team (Late st Contact Info) Description 09/01/2024 Refill [facility] MEDICINE [address] [place], [place] [phone] Sherri Selby MD [address] [place], [place] [phone] Flank pain Social History Tobacco Use Types [...] Description 05/24/2025 10:00 AM EST Office Visit [facility] OPTOMETRY [address] [place], [place] [phone] Mitali Kirby, OD [address] [place] [address] 07/02/2025 9:00 AM EST Office Visit [facility] MEDICINE [address] [place] [address] Sherir Selby MD [address] [place] [address] documented as of this encounter Visit Diagnoses Diagnosis Flank pain Abdominal pain, unspecified site documented in this encounter Additional Health Concerns Assessment Noted Time PHQ-9 Depression Total Score: 7 08/18/19 25 9:01 AM EDT documented as of this encounter Care Teams Service Station Operator Relationship Specialty Start Date End Date Sherri Selby MD [address] [place] [address] PCP - General Internal Medicine 02/02/23 Liane Alfred MD [address] [facility] [place] [address] Neurology 12/25/24 Holly Araujo NP [address] [place] [address] Urology 12/25/24 Shefali Delgado MD [address] [place] [address] Hematology and Oncology 12/25/24 [facility] [address] [facility] [address] [phone] (Fax) 12/25/24 [facility] Management ([facility]) [address] [facility] [address] 12/25/24 documented as of this encounter
--- OUTSIDE RECORDS SUMMARY | 2025-04-03 22:24 | XMS_ITS | Encounter Summary ---
Author Organization [employer] Address [address] [facility] 7t [place] [address] Care Team Providers Care Brick Molder Hand Name Role Phone Sherri Selby MD Primary Care Pro vider Liane Alfred MD Unavailable [phone] Holly Araujo NP Unavailable Shefali Delgado MD Unavailable [phone] Encounter Details Date Type Department Care Team (Latest Contact Info) Description 02/27/2025 Results Follow-Up [facility] WALK-IN CENTER [address] [place] [address] [phone] Sherri Selby MD [address] [place], [place] [phone] CBC auto differential, Chlamydia/Trichomonas/ Neisseria gonorrhoeae, PCR, [...] Description 05/24/2025 10:00 AM EST Office Visit [facility] OPTOMETRY [address] [place], [place] [phone] Mitali Kirby, OD [address] [place], [place] [phone] 07/02/2025 9:00 AM EST Office Visit [facility] MEDICINE 230 [place], [place] [phone] Sherri Selby MD [address] [place], [place] [phone] documented as of this encounter Visit Diagnoses Not on filedocumented in this encounter Additional Health Concerns Assessment Noted Time PHQ-9 Depression Total Score: 7 08/18/19 25 9:01 AM EDT documented as of this encounter Care Teams Brick Molder Hand Relationship Specialty Start Date End Date Sherri Selby MD [address] [place] [address] PCP - General Internal Medicine 02/02/23 Liane Alfred MD [address] [place] [address] Dr [address] [place] [address] Neurology 12/25/24 Holly Araujo NP [address] [place] [address] Urology 12/25/24 Shefali Delgado MD [address] [place] [address] Hematology and Oncology 12/25/24 [facility] [address] [facility] [address] [phone] (Fax) 12/25/24 [facility] ([facility]) [address] [facility] [address] 12/25/24 documented as of this encounter
--- OUTSIDE RECORDS SUMMARY | 2025-04-03 22:24 | XMS_ITS | Encounter Summary ---
Author Organization [employer] Address [address] [facility] [address] [place] [address] Care Team Providers Care Eyeglass Frames Polisher Name Role Phone Sherri Selby MD Primary Care Pro vider Liane Alfred MD Unavailable [phone] Holly Araujo NP Unavailable Shefali Delgado MD Unavailable [phone] Reason for Visit * Reason Onset Date Comments Results 05/05/2023 Encounter Details Date Type Department Care Team (Late st Contact Info) Description 05/05/2023 Telephone [facility] [address] [place], [place] [phone] Sherri Selby MD [address] [place], [place] [phone] Results Social History Tobacco Use Types Packs/Day [...] results of spine. Please contact pt at [phone] documented in this encounter Plan of Treatment Upcoming Encounters Date Type Department Care Team (Late st Contact Info) Description 05/24/2025 10:00 AM EST Office Visit [facility] [address] [place] [address] Kofi Mitali, OD [address] [place] [address] 07/02/2025 9:00 AM EST Office Visit [facility] [address] [place] [address] Sherri Selby MD [address] [place] [address] documented as of this encounter Visit Diagnoses Not on filedocumented in this encounter Additional Health Concerns Assessment Noted Time PHQ-9 Depression Total Score: 16 023 9:09 AM EDT documented as of this encounter Care Teams Eyeglass Frames Polisher Relationship Specialty Start Date End Date Shreri Selby MD [address] [place] [address] [place] [address] PCP - General Internal Medicine 02/02/23 Liane Alfred MD [address] [place] [address] [place] [address] Neurology 12/25/24 Holly Araujo NP [address] [place] [address] Urology 12/25/24 Shefali Delgado MD [address] [place] [address] Hematology and Oncology 12/25/24 [facility] [address] [facility] [address] [phone] (Fax) 12/25/24 [facility]) [address] [facility] 2nd [address] [facility] [address] 12/25/24 documented as of this encounter
--- OUTSIDE RECORDS SUMMARY | 2025-04-03 22:24 | XMS_ITS | Encounter Summary ---
Author Organization [employer] Address [address] [facility] 7t [place] [address] Care Team Providers Care Dry Kiln Operator Helper Name Role Phone Funmi Easton MD Primary Care Provider Lorenza Stroud Primary Care Provider Sherri Leyva MD Primary Care Pro vider Liane Alfred MD Unavailable Holly Araujo NP Unavailable Shefali Delgado MD Unavailable [phone] Encounter Details Date Type Department Care Team (Latest Contact Info) Description 03/23/2021 Abstract [facility] CON[facility] Dental, Provider, DDS Social History [...] 10:00 AM EST Office Visit [facility] [address] [place], [place] [phone] Mitali Kirby, OD [address] [place], [place] [phone] 07/02/2025 9:00 AM EST Office Visit [facility] [address] [place], [place] [phone] Sherri Selby MD [address] [place] [address] documented as of this encounter Visit Diagnoses Not on filedocumented in this encounter Care Teams Dry Kiln Operator Helper Relationship Specialty Start Date End Date Funmi Easton MD PCP - General Family Medicine 03/20/19 04/04/22 Lorenza Hodge FNP PCP - General Family Medicine 04/05/22 02/01/23 Sherri Selby MD [address] [place] [address] PCP - General Internal Medicine 02/02/23 Liane Alfred MD [address] [place] [address] [place] [address] Neurology 12/25/24 Holly Araujo NP [address] [place] [address] Urology 12/25/24 Shefali Delgado MD [address] [place] [address] Hematology and Oncology 12/25/24 [facility] [address] [facility] [address] [phone] (Fax) 12/25/24 [facility] ([facility]) [address] [facility] [address] 12/25/24 documented as of this encounter
--- OUTSIDE RECORDS SUMMARY | 2025-04-03 22:24 | XMS_ITS | Clinical Summary ---
Author Organization [facility] Address [address] [place] [address] Care Team Providers Care Diesel Engine Inspector Name Role Phone Sherri Selby MD Primary Care Pro vider Liane Alfred MD Unavailable Holly Araujo NP Unavailable Shefali Delgado MD Unavailable [phone] Allergies Active Allergy Reactions Criticality Noted [...] 0.4 MG SL tabletIndicatio ns:Atherosclero sis of [place] coronary artery of [place] heart with stable angina pectoris Place 1 [...] 25 MG capsule 4 Active sodium chloride (Mitchell) 0.65 % nasal spray Administer 1 spray [...] hemorrhoids and left sided diverticulosis Atherosclerosis of [place] co ronary artery of [place] heart with stable angina pectoris 08/10/2022 Overview (11/24/2022): Cardiac hx Chest pain continued SOB Leg swelling Assessment & Plan (11/24/2022 6:12 PM EDT): Try and locate Cards notes Check BNP F/u PRN Gastroesophageal reflux disease 06/14/2022 Migraine without aura and wi thout status migrainosus, not intractable 06/07/2022 Overview (02/02/2023): Care Managed by Neurology associates [facility] - 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) 06/07/2022 Overview (02/02/2023): Dyscognitive seizure disorder with episodes of blurry vision and passing out Care Managed by Neurology [facility] of [facility] Last appt 04/28/22 Treating Keppra 250mg BID [...] to locate records Gave pt card with [facility] Fax number and have all specialists [...] intervention and Patient to reach out to [facility] team as needed Rule Out Diagnoses n/a [...] Encounters Date Type Department Care Team Description 03/06/2025 Orders Only [facility] MEDIC[facility] [address] [place] [address] Sherri Selby MD Poor memory (Primary Dx) 03/02/2025 Results Follow-Up [facility] [address] [place] [phone] Sherri Selby MD US Head Neck Soft Tissue 03/01/2025 1:30 PM EDT Office Visit [address] [address] Sherri Selby MD Transaminitis (Primary Dx); Encounter for immunization; Mixed hyperlipidemia; Overweight; Prediabetes; Dysphagia, unspecified type; Health care maintenance; Poor memory 03/01/[address] [address] Sherri Selby MD 03/01/2025 Travel 02/28/[address] [address] Sherri Selby MD chart prep 02/27/2025 Results Follow-Up [facility] [address] [place] [phone] Sherri Selby MD CBC auto differential, Chlamydia/Trichomonas /Neisseria gonorrhoeae, PCR, Urine, Comprehensive Metabolic Panel, Additional followed-up results: 4 02/19/2025 Orders Only [address] [address] Sherri Selby MD Health care maintenance (Primary Dx) 02/19/[address] [address] Sherri Selby MD Lab Orders 02/11/[address] [address] Sherri Selby MD Appointment 01/07/2025 Refill [facility] [address] [place], [place] [phone] Mayelin Robin MD TIA (transient ischemic attack) from Last 3 Months Immunizations Immunization Administration Dates Next Due Hep B, adult 08/17/2024,01/10/2024,12/07/2023 Influenza Injectable Quadriv alant Preservative Free IIV4 MDCK 03/14/2020 Influenza injectable quadriv alent preservative free 02/09/2022,06/02/2021 Influenza, IIV3, injectable 04/15/2014 Influenza, Split (incl. carl fied surface antigen) 01/20/2015 Influenza, seasonal, injecta ble, preservative free 03/01/2025,03/02/2024 Pfizer Covid-19 Vaccine 12+ 03/01/2025, 4,10/18/2023 RSV Bivalent 01/10/2024 Td (adult), 5 Lf [...] the past 12 months, has t he [employer], gas, oil or water [employer] threatened to shut off services in your [...] Sign Reading Time Taken Comments Blood Pressure 110/68 03/01/2025 2:11 PM EDT Pulse 75 03/01/2025 2:11 PM EDT Temperature 36.4 C (97.5 F) 03/01/2025 2:11 PM EDT Respiratory Rate 20 03/01/2025 2:11 PM EDT Oxygen Saturation 99% 03/01/2025 2:11 PM EDT Inhaled Oxygen Concentration - - Weight 85.3 kg (188 lb) 03/01/2025 2:11 PM EDT Height 175.3 cm (5' 9 ) 03/01/2025 2:11 PM EDT Body Mass Index 27.76 03/01/2025 2:11 PM EDT Plan of Treatment Upcoming Encounters Date Type Department Care Team (Late st Contact Info) Description 05/24/2025 10:00 AM EST Office Visit [facility] OPTOMETRY [address] [place] [address] Mitali Kirby, OD [address] [place] [address] 07/02/2025 9:00 AM EST Office Visit [facility] MEDICINE [address] [place] [address] Sherri Selby MD [address] [place], [place] [phone] Health Maintenance Due Date Last Done Comments CT Colonography 1960 Colonoscopy 1960 FIT DNA/Cologuard 1960 Sigmoidoscopy 1960 Pneumococcal Vaccine: 50+ Years (1 of 2 - PCV) 1979 Dental Oral Exam 12/25/2024 06/26/2024, 01/2023, 12/24/2021, Additional history exists Dental Prophylaxis 12/25/2024 06/26/2024, 0 10/18/2023, 03/24/2023, Additional history exists Dental X-Ray: Bitewings 06/27/2025 06/26/19 25, 03/24/2023, 12/24/2021, Additional history exists Alcohol/Substance Use Screening 08/17/2025 08/17/2024 Depression Screening 08/17/2025 08/17/2024, 08/18/19 Disability Screening 08/17/2025 08/17/2024 SDOH Screening 08/17/2025 08/17/2024 Colorectal Cancer Screening 10/04/2025 FIT 10/04/2025 10/04/2024, 02/14, 06/05/2023 FOBT 10/04/2025 10/04/2024, 02/14, 06/05/2023 Diabetes: Hemoglobin A1C 02/27/2026 025, 09/12/2024, 11/16/2023, Additional history exists Tobacco Screening 03/01/2026 03/01/2025 Dental X-Ray: Full Mouth 03/25/2026 023, 05/02/2019, 06/16/2018, Additional history exists Lipid Panel 02/27/2030 02/27/2025, 08/16, 03/19/2024, Additional history exists DTaP/Tdap/Td Vaccines (4 - Td or Tdap) 05/20/2030 05/20/2020, 06/14/2015, 06/19/2013 Zoster Vaccines Completed 09/29/2021, 05/02/2019 RSV Patients and Patients Aged 60 years or older Completed 01/10/2024 Hepatitis B Vaccines Completed 08/17/2024, 01/10/2024, 12/07/2023 HIV Screening Completed 02/27/2025, 11/16/2023 Hepatitis C Screening Completed 02/27/2025, 024 COVID-19 Vaccine Completed 03/01/2025, , 10/18/2023, Additional history exists Influenza Vaccine Completed 03/01/2025, , 02/09/2022, Additional history exists HIB Vaccines Aged Out [...] Name Priority Date/Time Associated Diagnosis Comments US HEAD NECK SOFT TISSUE Routine 03/01/2025 5:35 PM EDT Dysphagia, unspecified type VITAMIN B12/FOLATE, SERUM PANEL Routine 02/27/2025 9:09 [...] 02/27/2025 9:09 AM EDT Health care maintenance FECAL GLOBIN BY IMMUNOCHEMISTRY Routine 10/04/2024 12:00 [...] Relevant to Health Maintenance Results * US Head Neck Soft Tissue (03/01/2025 5:35 PM EDT) Anatomical Region Laterality Modality Head, Neck Ultrasound 03/01/2025 5:35 PM EDT Narrative 03/01/2025 5:38 PM EDT [address] [address] Ultrasound Report Signed Patient: Inderjit Stoner MR #: [id number] : 1960 Acct:[id number] Age/Sex: 64 / M ADM Date: 02/28/25 Loc: HO.US Attending Dr: Sherri Navarro MD Ordering Physician: Sherri Selby MD Date of Service: 02/28/25 Procedure(s): US soft tiss head and/or neck Accession Number(s): [id number] cc: Sherri Selby MD Reason for Exam: pt w reported mass sensation in neck CLINICAL HISTORY: pt w reported mass sensation in neck US right anterior soft tissue neck Comparison: None provided Findings: Sonographic examination of the right anterior soft tissue neck demonstrates no loculated fluid collection or mass identified. The left and right thyroid lobes are homogeneous in echogenicity. Impression: 1. No loculated fluid collection, nodule or mass identified in the right soft tissue neck correspond to patient's clinical history of mass sensation in neck. This document has been electronically signed by: Ghassan Haskins MD on 03/01/2025 17:35:53 Dictated By: Ghassan Haskins MD Signed By: <Electronically signed by Ghassan Haskins MD in OV> 03/01/251736 DD/ 34 TD/TT: 03/01/251734 Epidemiology Intern: Procedure Note Donotuseinterpreter, Image - 03/01/2025 [place] [address] Ultrasound Report Signed Patient: Inderjit Stoner BANNER #: [id number] : 1960cct:[id number] Age/Sex: 64 / MADM Date: 02/28/25 Loc: HO.US Attending Dr: Sherri Navarro MD Ordering Physician: Sherri Selby MD Date of Service: 02/28/25 Procedure(s): US soft tiss head and/or neck Accession Number(s): [id number] cc: Sherri Selby MD Reason for Exam: pt w reported mass sensation in neck CLINICAL HISTORY: pt w reported mass sensation in neck US right anterior soft tissue neck Comparison: None provided Findings: Sonographic examination of the right anterior soft tissue neck demonstrates no loculated fluid collection or mass identified. The left and right thyroid lobes are homogeneous in echogenicity. Impression: 1. No loculated fluid collection, nodule or mass identified in the right soft tissue neck correspond to patient's clinical history of mass sensation in neck. This document has been electronically signed by: Ghassan Haskins MD on 03/01/2025 17:35:53 Dictated By: Ghassan Haskins MD Signed By: <Electronically signed by Ghassan Haskins MD in OV> 03/01/251736 DD/ 34 TD/TT: 03/01/251734 Epidemiology Intern: [facility] MD IM US PROCEDURES Final Result * Chlamydia/Trichomonas/Neisseria gonorrhoeae, PCR, Urine (02/27/2025 9:09 AM EDT) CT PCR, Urine NOT DETECTED Not Detect. [facility] Comment:A not detected test result does [...] NG PCR, Urine NOT DETECTED Not Detect. [facility] Comment:A not detected test result does [...] ORDERAB LES Final Result Performing Organization Address City/[facility]/ZIP Co de Phone Number [facility] [address] [place] [phone] * Syphilis Screen (02/27/2025 9:09 AM EDT) Syphilis Screen Nonreactive Nonreactive [facility] Blood 02/27/2025 9:09 AM EDT 02/27/2025 11:17 AM EDT us Sherri Navarro MD LAB BLOOD ORDERAB LES Final Result Performing Organization Address [facility] Co me Phone Number [facility] [address] [place] [phone] * Vitamin B12 (Cobalamin) and Folate Panel, Serum (02/27/2025 9:09 AM EDT) Vitamin B12 442 200 - 900 pg/mL [facility] Comment:NORMAL 200-900 PG/ML INDETERMINATE 160-199 PG/ML DEFICIENT < 160 PG/ML Folate 13.7 > or = 4.0 ng/mL [facility] Comment:Reference Values:> o r = 4.0 ng/mL< 4.0 ng/mL suggests folate deficiency Methotrexate, aminopterin and folinic acid(leucovorin) are chemotherapeutic agents whose molecularstructures are similar to folate; therefore, the Architectfolate assay cannot be used for patients using these drugs. Blood 02/27/2025 9:09 AM EDT 02/27/2025 11:17 AM EDT us Sherri Navarro MD LAB BLOOD ORDERAB LES Final Result Performing Organization Address [facility] Co de Phone Number [facility] [address] [place] [address] [place] [phone] * TSH with Reflex to Free T4 (02/27/2025 9:09 AM EDT) Pathologist [facility] TSH reflex Free T4 1.09 0.32 - 4.0 uIU/mL [facility] Blood 02/27/2025 9:09 AM EDT 02/27/2025 11:17 AM EDT us Sherri Navarro MD LAB BLOOD ORDERAB LES Final Result [facility] [address] [place] [phone] * (ABNORMAL) CBC auto differential (02/27/2025 9:09 AM EDT) Pathologist [facility] White Blood Count 4.3(L) 4.8 - 10.8 X10*3/uL [facility] Red Blood Count 5.41 4.60 - 5.80 X10*6/uL [facility] Hemoglobin 14.6 14.0 - 18.0 g/dl [facility] Hematocrit 46.6 42.0 - 52.0 % [facility] Mean Corpuscular Volume 86.1 80.0 - 98.0 fL [facility] Mean Corpuscular Hemoglobin 27.0 27.0 - 33.0 pg [facility] Mean Corpuscular HGB Conc 31.3 31.0 - 36.0 g/dl [facility] Red Cell Distribution Width 13.3 11.0 - 16.0 % [facility] Platelet Count 211 160 - 400 X10*3/uL [facility] Mean Platelet Volume 10.5 9.4 - 12.4 fL [facility] Neutrophils Percent Auto 43.3(L) 45 - 73 % [facility] Imm Gran Pct Auto 0.2 0.0 - 0.4 % [facility] Lymphocytes Percent Auto 45.7(H) 20 - 40 % [facility] Monocytes Percent Auto 8.4 2 - 11 % [facility] Eosinophils Percent Auto 1.9 0 - 4 % [facility] Basophils Percent Auto 0.5 0 - 2 % [facility] NRBC Pct Auto 0.0 0.0 - 0.2 /100WBC [facility] Neutrophils Absolute Auto 1.9(L) 2.0 - 8.3 x10*3/uL [facility] Imm Gran Abs Auto 0.01 0.00 - 0.03 X10*3/uL [facility] Lymphocytes Absolute Auto 2.0 1.2 - 4.9 X10*3/uL [facility] Monocytes Absolute Auto 0.4 0.1 - 1.2 X10*3/uL [facility] Eosinophils Absolute Auto 0.1 0.0 - 0.4 X10*3/uL [facility] Basophils Absolute Auto 0.0 0.0 - 0.2 X10*3/uL [facility] NRBC Abs Auto 0.000 0.0 - 0.012 X10*3/uL [facility] Blood Venous blood specimen / Unknown 02/27/2025 9:09 AM EDT 02/27/2025 11:06 AM EDT us Sherri Navarro MD LAB BLOOD ORDERAB LES Final Result Performing Organization Address City/[facility] Co de Phone Number [facility] [address] [place] [phone] * Hepatitis C Antibody with Reflex to HCV, RNA, Quantitative, Real-Time PCR (02/27/2025 9:09 AM EDT) Hepatitis C Antibody Nonreactive Nonreactive [facility] Comment:Antibodies to HCV no t detected; does not exclude early acuteHCV infection. Blood Venous blood specimen / Unknown 02/27/2025 9:09 AM EDT 02/27/2025 11:17 AM EDT Sherri Navarro MD LAB BLOOD ORDERAB LES Final Result [facility] [address] [place] [phone] * Hepatitis B surface antigen, EIA (02/27/2025 9:09 AM EDT) Pathologist [facility] Hepatitis B Surface Ag Negative Negative [facility] Blood Venous blood specimen / Unknown 02/27/2025 9:09 AM EDT 02/27/2025 11:17 AM EDT us Sherri Navarro MD LAB BLOOD ORDERAB LES Final Result Performing Organization Address [facility]/ZIP Co de Phone Number [facility] [address] [place] [phone] * Hepatitis B Core Antibody, Total (02/27/2025 9:09 AM EDT) Pathologist [facility] Hepatitis B Core Antibody Nonreactive Nonreactive [facility] Blood Venous blood specimen / Unknown 02/27/2025 9:09 AM EDT 02/27/2025 11:17 AM EDT us Sherri Navarro MD LAB BLOOD ORDERAB LES Final Result Performing Organization Address City/[facility]/ZIP Co de Phone Number [facility] [address] [place] [phone] * HIV-1/2 Antigen and Antibodies, Fourth Generation, with Reflexes (02/27/2025 9:09 AM EDT) Pathologist [facility] HIV AB/AG Nonreactive Nonreactive [facility] Comment:HIV-1 p24 Ag and/or HIV-1/HIV-2 Ab not detected.A test result that is nonreactive does not exclude thepossibility of exposure to or infection with HIV-1 and/orHIV-2. Nonreactive results in this assay for individualswith prior exposure to HIV-1 and/or HIV-2 may be due toantigen and antibody levels that are below the limit ofdetection of this assay.The Polyvore HIV Ag/Ab Combo assay result andsupplemental assay results should be interpreted inconjunction with the patient's clinical presentation,history and other laboratory results. If the results areinconsistent with clinical evidence, additional testing issuggested to confirm the result. Blood Venous blood specimen / Unknown 02/27/2025 9:09 AM EDT 02/27/2025 11:17 AM EDT us Sherri Navarro MD LAB BLOOD ORDERAB LES Final Result Performing Organization Address City/[facility]/ZIP Co de Phone Number [facility] [address] [place] [phone] * Hepatitis B Surface Antibody, Qualitative (02/27/2025 9:09 AM EDT) ~Hepatitis B Surface Antibody REACTIVE Nonreactive [facility] Comment:REACTIVE: > 11.99 mI U/mL Blood Venous blood specimen / Unknown 02/27/2025 9:09 AM EDT 02/27/2025 11:17 AM EDT us Sherri Navarro MD LAB BLOOD ORDERAB LES Final Result Performing Organization Address [facility] Co de Phone Number [facility] [address] [place] [phone] * Hemoglobin A1c (02/27/2025 9:09 AM EDT) Hemoglobin A1c 5.7 <6.0 % [facility] Comment:Hemoglobin A1C Refer ence Range Adults: 4.8 - 6.0 % Non diabetic: < 6.0 % Goal: < 7.0 %Additional Action Suggested: > 8.0 %Note: Hemoglobin A1c results are invalid for patients with abnormal amounts of HbF. Blood transfusions may impact the HbA1c concentration in the patient sample. Estimated Average Glucose 117 mg/dL [facility] Comment:eAG = Estimated ave rage glucose which is %A1C expressed asaverage glucose, using the formula of the O5J-WvpiaomIojouow Glucose study (ADAG), Diabetes Care, Vol.31,#8,Dec. 2007 Blood Venous blood specimen / Unknown 02/27/2025 9:09 AM EDT 02/27/2025 11:06 AM EDT us Sherri Navarro MD LAB BLOOD ORDERAB LES Final Result Performing Organization Address City/[facility]/ZIP Co de Phone Number [facility] [address] [place] [phone] * Lipid Panel, Standard (02/27/2025 9:09 AM EDT) Triglycerides 103 <150 mg/dL [facility] Comment:Desirable Triglyceri de: less than 150 mg/dLBorderline High Triglyceride 150-199 mg/dLHigh Triglyceride: 200-499 mg/dLVery High Triglyceride: greater than or equal to 5OO mg/dL Cholesterol 160 <200 mg/dL [facility] Comment:Desirable Cholestero l: less than 200 mg/dLBorderline High Cholesterol: 200-239 mg/dLHigh Cholesterol: greater than 239 mg/dL LDL Cholesterol Calculated 97 <100 mg/dL [facility] Comment:Desirable LDL: less than 100 mg/dLNear Optimal/Above Optimal LDL: 110- 129 mg/dLBorderline High LDL: 130-159 mg/dLHigh LDL: 160-189 mg/dLVery High LDL: greater than or equal to 190 mg/dL HDL Cholesterol 43 >40 mg/dL [facility] Comment:Desirable HDL: great er than 40 mg/dL Note: This HDL assay may give artificially low results in patients with liver disease. Blood Venous blood specimen / Unknown 02/27/2025 9:09 AM EDT 02/27/2025 11:17 AM EDT us Sherri Navarro MD LAB BLOOD ORDERAB LES Final Result Performing Organization Address [facility]/ZIP Co de Phone Number [facility] [address] [place] [phone] * (ABNORMAL) Comprehensive Metabolic Panel (02/27/2025 9:09 AM EDT) Sodium 143 135 - 145 mmol/L [facility] Potassium 4.4 3.3 - 5.1 mmol/L [facility] Chloride 110(H) 96 - 108 mmol/L [facility] Carbon Dioxide 25 22 - 29 mmol/L [facility] Anion Gap 12 12 - 20 [facility] Urea Nitrogen (BUN) 16 9 - 16 mg/dL [facility] Creatinine, Serum 0.93 0.5 - 1.4 mg/dL [facility] Estimated Glomerular Filt Rate >60 [facility] Comment:Chronic Kidney Disea se: Estimated GFR < 60 mL/min/1.33i5Aywsyj Kidney Disease: Estimated GFR < 15 mL/min/1.73m2 Glucose 95 60 - 115 mg/dL [facility] Calcium 9.3 8.4 - 10.2 mg/dL [facility] Bilirubin, Total 0.9 0.0 - 1.0 mg/dL [facility] Aspartate Amino Transferase 24 5 - 37 U/L [facility] Alanine Aminotransferase 54(H) 0 - 40 U/L [facility] Total Protein 7.0 6.5 - 8.0 g/dL [facility] Albumin Level 4.5 3.5 - 5.0 g/dL [facility] Alkaline Phosphatase 84 39 - 117 U/L [facility] Blood Venous blood specimen / Unknown 02/27/2025 9:09 AM EDT 02/27/2025 11:17 AM EDT us Sherri Navarro MD LAB BLOOD ORDERAB LES Final Result [facility] [address] [place] [phone] * Occult Blood, Fecal, Immunoassay (10/04/2024 12:00 AM EDT) Fecal Globin By Immunochemistry SEE NOTE [facility] Comment: FECAL GLOBIN BY IMMUNOCHEMISTRY Micro Number: [id number] Test Status: Final Specimen Source: Insure (tm) fobt test card Specimen Quality: Inadequate Fecal Globin: Test not performed. The specimen was received in an collection container. Reference Range: Not Detected 10/04/2024 10/11/2024 4:3 0 AM EDT Narrative [facility] - 10/11/2024 4:36 AM EDT FASTING: UNKNOWN Sherri Navarro MD LAB BODY FLUIDS A ND STOOLS ORDERABLES Final Result [facility] [address], [place] [phone] [facility] [address] [place] [phone] from Last 3 Months or Most Recently Relevant to Health Maintenance Insurance [facility] < 65 [address] [id number] [facility] Care Teams Diesel Engine Inspector Relationship Specialty Start Date End Date Sherri Selby MD [address] [place] [phone] PCP - General Internal Medicine 02/02/23 Liane Alfred MD [address] [place] [address] Dr Cleaning [address] [place] [phone] Neurology 12/25/24 Holly Araujo NP [address] [place] [address] Urology 12/25/24 Shefali Delgado MD [address] [place] [phone] Hematology and Oncology 12/25/24 [facility] [address] [facility] [phone] (Fax) 12/25/24 Pain Management ([facility]) [address] [facility] [address] 12/25/24
--- OUTSIDE RECORDS SUMMARY | 2025-04-03 22:24 | XMS_ITS | Encounter Summary ---
Author Organization [employer] Address [address] [facility] 7t [place] [address] Care Team Providers Care Trim Setter Helper Name Role Phone Lorenza Hodge Primary Care Provider Sherri Leyva MD Primary Care Pro vider Liane Alfred MD Unavailable [phone] Holly Araujo NP Unavailable Shefali Delgado MD Unavailable [phone] Encounter Details Date Type Department Care Team (Late st Contact Info) Description 11/25/2022 Orders Only [facility] [address] [place], [place] [phone] Lorenza Hodge FNP Social History Tobacco Use [...] 10:00 AM EST Office Visit [facility] [address] [place], [place] [phone] Mitali Kirby OD [address] [place], [place] [phone] 07/02/2025 9:00 AM EST Office Visit [facility] [address] [place], [place] [phone] Sherri Selby MD [address] [place], [place] [phone] documented as of this encounter Procedures Procedure Name Priority Date/Time Associated Diagnosis Comments US RENAL BI Routine 12/06/2022 1:54 PM EDT documented in this encounter Results * US RENAL BI (12/06/2022 1:54 PM EDT) Anatomical Region Laterality Modality Abdomen Ultrasound 12/06/2022 1:54 PM EDT Narrative 12/09/2022 6:44 PM EDT [address] [address] Ultrasound Report Signed Patient: Inderjit Stoner MR #: [id number] : [id number] Acct:[id number] Age/Sex: 62 / M ADM Date: 12/06/22 Loc: HO.US Attending Dr: Lorenza Hodge WELDER FABRICATOR Ordering Physician: Lorenza Hodge Date of Service: 12/06/22 Procedure(s): US renal BI Accession Number(s): [id number] cc: Lorenza Hodge WELDER FABRICATOR EXAMINATION: US RETROPERITONEAL LIMITED (RENAL ONLY) CLINICAL [...] MD in OV> 12/09/221840 DD/ 1354 TD/TT: Welfare Worker: Procedure Note Donotuseinterpreter, Image - 12/09/[address] [address] Ultrasound Report Signed Patient: Inderjit Stoner AMR #: [id number] : [id number] Age/Sex: 62 / MADM Date: 12/06/22 Loc: HO.US Attending Dr: Lorenza Hodge WELDER FABRICATOR Ordering Physician: Lorenza Hodge Date of Service: 12/06/22 Procedure(s): US renal BI Accession Number(s): [id number] cc: Lorenza Hodge EXAMINATION: US RETROPERITONEAL LIMITED [...] MD in OV> 12/09/221840 DD/ 1354 TD/TT: Welfare Worker: us Lorenza Mojgan Hodge WELDER FABRICATOR IMG US PROCEDURES Edited R esult - Final documented in this encounter Visit Diagnoses Not on filedocumented in this encounter Additional Health Concerns Assessment Noted Time PHQ-9 Depression Total Score: 16 08/10/ 023 9:09 AM EDT documented as of this encounter Care Teams Trim Setter Helper Relationship Specialty Start Date End Date Lorenza Hodge FNP PCP - General Family Medicine 04/05/22 02/01/23 Sherri Selby MD [address] [place] [address] PCP - General Internal Medicine 02/02/23 Liane Alfred MD [address] [place] [address] Dr Cleaning [address] [place] [address] Neurology 12/25/24 Holly Araujo NP [address] [place] [address] Urology 12/25/24 Shefali Delgado MD [address] [place] [address] Hematology and Oncology 12/25/24 [facility] [address] [facility] [address] [phone] (Fax) 12/25/24 [facility] ([facility]) [address] [place] [address] 2nd Floor [address] [facility] [address] 12/25/24 documented as of this encounter
== END 2025-04-03 12:30 | disposition home or self-care (01) ==
LOC: HO.HSM 11:22
PROVIDERS: PCP Student in an Organized Health Care Education/Training Program; Visit Provider Psychiatry & Neurology Neurology
DX: G40.209 Localization-related (focal) (partial) symptomatic epilepsy and epileptic syndromes with complex partial seizures, not intractable, without status epilepticus (principal); G43.009 Migraine without aura, not intractable, without status migrainosus; R25.1 Tremor, unspecified
CPT/HCPCS: 99213

== ENCOUNTER → 2025-04-03 11:22 | Outpatient (BNVA) | payer OTHER, SELFPAY | PROVIDERS: PCP Student in an Organized Health Care Education/Training Program; Visit Provider Psychiatry & Neurology Neurology | DX: G40.209 Localization-related (focal) (partial) symptomatic epilepsy and epileptic syndromes with complex partial seizures, not intractable, without status epilepticus (principal); G43.009 Migraine without aura, not intractable, without status migrainosus; R25.1 Tremor, unspecified | CPT/HCPCS: 99212 ==

== ENCOUNTER 2025-04-21 07:07 | Emergency (ER) | payer OTHER, SELFPAY ==
--- OUTSIDE RECORDS SUMMARY | 2025-04-20 10:00 | XMS_ITS | Encounter Summary ---
Author Organization [employer] Address [address] [facility] 7t [place] [address] Care Team Providers Care Comb Setter Name Role Phone Sherri Selby MD Primary Care Pro vider Liane Alfred MD Unavailable Holly Araujo NP Unavailable Shefali Delgado MD Unavailable [phone] Reason for Visit * Reason Comments Generalized Body Aches Encounter Details Date Type Department Care Team (Latest Contact Info) Description 04/20/2025 10:00 AM EST Office Visit [facility] [address] [place] [address] Anna Nguyen MD [address] [place], [place] [phone] 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) (HCC) (Primary Dx); Body aches; Neck pain, chronic Social History Tobacco Use Types Packs/Day Years [...] Sign Reading Time Taken Comments Blood Pressure 126/70 04/20/2025 9:46 AM EST Pulse 86 04/20/2025 9:46 AM EST Temperature 37 C (98.6 F) 04/20/2025 9:46 AM EST Respiratory Rate 20 04/20/2025 9:46 AM EST Oxygen Saturation 99% 04/20/2025 9:46 AM EST Inhaled Oxygen Concentration - - Weight 86.5 kg (190 lb 9.6 oz) 04/20/2025 9:46 A M EST Height 175.3 cm (5' 9 ) 04/20/2025 9:46 AM EST Body Mass Index 28.15 04/20/2025 9:46 AM EST documented in this encounter Progress Notes * Anna Nguyen MD - 04/20/2025 10:00 AM EST Subjective Patient ID: Inderjit Banks is a 64 y.o. male who presents for Generalized Body Aches. Inderjit Banks, age 64 years Neck Pain Inderjit Banks reports onset of neck pain approximately 10 days prior to the visit. Describes the pain as a stabbing sensation, worsening since yesterday, with associated headache. Pain increases with pressure and when lying down. Denies fever and cough. No history of trauma reported.Takes tylenol prn with relief. Seizure Disorder Has a history of epilepsy. Reports that when the effect of his medication wears off, experiences pain. Last blood level of antiepileptic medication was checked 10 months ago. No recent dose changes. No history of increased seizure frequency reported. Last seizure episode about 7 months ago per patient.Sees neurology.Has a brain MRI from 10/2024.Eye exam up to date. Review of Systems Constitutional: Negative for activity change, chills, fever and unexpected weight change. Eyes: Negative for visual disturbance. Respiratory: Negative for cough, shortness of breath and wheezing. Cardiovascular: Negative for chest pain, palpitations and leg swelling. Gastrointestinal: Negative for abdominal pain and blood in stool. Endocrine: Negative for polydipsia and polyuria. Genitourinary: Negative for decreased urine volume, difficulty urinating, dysuria and hematuria. Musculoskeletal: Positive for arthralgias. Negative for gait problem. Skin: Negative for color change and rash. Neurological: Negative for dizziness, syncope, speech difficulty, weakness and headaches. Hematological: Negative for adenopathy. Psychiatric/Behavioral: Negative for dysphoric mood, hallucinations, sleep disturbance and suicidalideas. The patient is not nervous/anxious. Objective BP 126/70 (BP Location: Left arm, Patient Position: Sitting, BP Cuff Size: Adult) Pulse86 Temp 98.6 ??F (37 ??C) (Temporal) Resp 20 Ht 5' 9 (1.753 m) Wt 190 lb 9.6 oz (86.5 kg) SpO2 99% BMI 28.15 kg/m?? Physical Exam Vitals reviewed. Constitutional: General: He is not in acute distress. Appearance: Normal appearance. HENT: Nose: No congestion. Mouth/Throat: Mouth: Mucous membranes are moist. Eyes: Extraocular Movements: Extraocular movements intact. Conjunctiva/sclera: Conjunctivae normal. Pupils: Pupils are equal, round, and reactive to light. Cardiovascular: Rate and Rhythm: Normal rate and regular rhythm. Heart sounds: Normal heart sounds. No murmur heard. Pulmonary: Effort: Pulmonary effort is normal. Breath sounds: Normal breath sounds. Abdominal: General: Abdomen is flat. Musculoskeletal: General: Normal range of motion. Cervical back: Normal range of motion. Tenderness present. No rigidity. Lymphadenopathy: Cervical: No cervical adenopathy. Skin: Capillary Refill: Capillary refill takes less than 2 seconds. Neurological: Mental Status: He is alert and oriented to person, place, and time. Mental status is at baseline. Gait: Gait normal. Psychiatric: Mood and Affect: Mood normal. Behavior: Behavior normal. Thought Content: Thought content normal. Judgment: Judgment normal. Assessment/Plan Diagnoses and all orders for this visit: 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) ([facility]): - Epilepsy with complex partial seizures managed with medication. No recent increase in dosage. Medication levels in blood last checked 10 months ago. Neurology follow-up discussed. - Laboratory tests for medication levels ordered by Dr. Kauffman in February 2025; patient advised to complete labs. Continue current antiepileptic regimen. Neurology follow-up as indicated. 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) ([facility]) - Levetiracetam; Future Body aches Tested negative for flu and covid today, stay well hydrated, refilled tylenol prn, added diclofenacgel. - POCT Rapid Influenza B STARR ID NOW - POCT Rapid Influenza A STARR ID NOW - POCT Rapid Covid-19 BinaxNOW Neck pain, chronic - acetaminophen (Tylenol 8 Hour) 650 MG ER tablet; Take 1 tab orally every 8 hours prn pain Other orders - Diclofenac Sodium 1 % gel; Apply bid to affected area prn pain documented in this encounter Plan of Treatment Upcoming Encounters Date Type Department Care Team (Late st Contact Info) Description 05/24/2025 10:00 AM EST Office Visit [facility] [address] [place] [address] Mitali Kirby, OD [address] [place] [address] 07/02/2025 9:00 AM EST Office Visit [facility] [address] [place] [address] Sherri Selby MD [address] [place] [address] Scheduled Orders Name Type Priority Associated Diagnoses Orde r Schedule Levetiracetam Lab Routine 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) (HCC) Expected: 04/20/2025 (Approximate), Expires: 04/20/2026 documented as of this encounter Procedures Procedure Name Priority Date/Time Associated Diagnosis Comments POCT INFLUENZA B (ID NOW RAPID MOLECULAR) Routine 04/20/2025 9:59 AM EST Body aches POCT INFLUENZA A (ID NOW RAPID MOLECULAR) Routine 04/20/2025 9:57 AM EST Body aches POCT RAPID COVID ANTIGEN Routine 04/20/2025 9:56 AM EST Body aches documented in this encounter Results * POCT Rapid Influenza B STARR ID NOW (04/20/2025 9:59 AM EST) Influenza B Negative Negative, Indeterminate [facility] QC Media Lot # [id number] [facility] Lot# Expiration Date [facility] Swab 04/20/2025 9:59 AM EST Anna Nguyen MD POINT OF CARE TEST ENTER/EDIT ORDERABLES Final Result [facility] [address] [place] [address] [phone] * POCT Rapid Influenza A STARR ID NOW (04/20/2025 9:57 AM EST) Influenza A Negative Negative, Indeterminate [facility] QC Media Lot # [id number] [facility] Lot# Expiration Date [facility] Swab 04/20/2025 9:57 AM EST us Anna Nguyen MD POINT OF CARE TEST ENTER/EDIT ORDERABLES Final Result [facility] [address] [place] [address] [phone] * POCT Rapid Covid-19 BinaxNOW (04/20/2025 9:56 AM EST) [facility] Signature Rapid COVID Ag Negative QC Media Lot # [id number] Lot# Expiration Date [id number] Swab 04/20/2025 9:56 AM EST us Anna Nguyen MD POINT OF CARE TEST ENTER/EDIT ORDERABLES Final Result documented in this encounter Visit Diagnoses Diagnosis 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) (HCC)- Primary Body aches Generalized pain Neck pain, chronic documented in this encounter Additional Health Concerns Assessment Noted Time PHQ-9 Depression Total Score: 7 08/18/19 9:01 AM EDT documented as of this encounter Care Teams Comb Setter Relationship Specialty Start Date End Date Sherri Selby MD [address] [place] [address] PCP - General Internal Medicine 02/02/23 Liane Alfred MD [address] [place] [address] [place] [address] Neurology 12/25/24 Holly Araujo NP [address] [place] [address] Urology 12/25/24 Shefali Delgado MD [address] [place] [address] Hematology and Oncology 12/25/24 [facility] [address] [place] [phone] (Fax) 12/25/24 [facility] ([facility]) [address] Floor [address] [place] [address] 12/25/24 documented as of this encounter
[2025-04-21] VITALS (7 sets, daily range): BP systolic 120–141; BP diastolic 65–84; PULSE 74–108; RESP 16–20; TEMP 36.3–37.2; O2SAT 95–97; BMI 24.2
--- NOTE | 2025-04-21 07:43 | ED.GENADULT ---
HPI - General Adult General Chief complaint: General Medical Stated complaint: dizziness, stomach/ back pain Time Seen by Provider: 04/21/25 07:43 Source: patient Mode of arrival: ambulatory Limitations: no limitations (Cymraes speaking/ did not request counseling services manager) History of Present Illness ED Provider: HPI narrative: 64-year-old male with multiple complaints reports a headache for the past 10-11 days, then upper back pain, lower back pain, epigastric abdominal pain, left lower quadrant abdominal pain, went to clinic yesterday was tested for COVID flu RSV which were negative, when I asked him specifically what is the 1 thing that he would be most concerned about he mentioned that it is his headache, there was no trauma no fevers or chills no visual changes, he reports history of vertigo and migraines, chest pain is also reported in his over the left pectoralis. All these intermittent and longstanding. Related Data Home Medications ?Medication ?Instructions ?Recorded ?Confirmed aspirin 81 mg tablet,delayed 81 mg PO QAM 12/08/20 09/17/24 release atorvastatin 80 mg tablet 80 mg PO BEDTIME 12/08/20 09/17/24 nitroglycerin 0.4 mg sublingual 0 mg sublingual 08/16/22 09/17/24 tablet fluoxetine 40 mg capsule 80 mg PO DAILY 12/20/22 09/17/24 primidone 50 mg tablet 50 mg PO BEDTIME 08/03/23 09/17/24 topiramate 25 mg capsule,extended 25 mg PO DAILY 08/03/23 09/17/24 release 24 hr multivitamin-ferrous tab PO 05/07/24 09/17/24 fumarate-folic acid 18 mg-400 mcg tablet (Certavite-Antioxidant) icosapent ethyl 1 gram capsule g PO 09/17/24 09/17/24 (Vascepa) Previous Rx's ?Medication ?Instructions ?Recorded linaclotide 290 mcg capsule 290 mcg PO QAM #30 caps 05/21/24 (Linzess) famotidine 40 mg tablet 40 mg PO BEDTIME #90 tabs 07/05/24 docusate sodium 100 mg capsule 100 mg PO BEDTIME #90 caps 08/15/24 ezetimibe 10 mg tablet 10 mg PO DAILY #90 tabs 10/29/24 terazosin 5 mg capsule 5 mg PO BEDTIME 90 days #90 caps 12/10/24 dicyclomine 10 mg capsule 10 mg PO BID PRN for abdominal 01/17/25 pain #60 caps levetiracetam 500 mg tablet 500 mg PO BID #180 tabs 01/30/25 topiramate 25 mg tablet 25 mg PO .COMPLEX #90 tabs 01/30/25 finasteride 5 mg tablet 5 mg PO DAILY 90 days #90 tabs 03/18/25 prednisone 20 mg tablet 20 mg PO DAILY 5 days #5 tabs 03/18/25 sulfamethoxazole 800 1 tab PO BID 14 days #28 tabs 03/18/25 mg-trimethoprim 160 mg tablet (Bactrim DS) Allergies Allergy/AdvReac Type Severity Reaction Status Date / Time No Known Allergies Allergy Verified 04/21/25 07:20 Review of Systems Constitutional: Constitutional: Reports as per [facility] Past Medical History Medical History TIA (transient ischemic attack) Complex partial seizures Migraine Hand pain Tremor MCI (mild cognitive impairment) CAD (coronary artery disease) Surgical History Hx of colonoscopy History of esophagogastroduodenoscopy (EGD) Family History Family History Father Cancer Throat cancer Mother Cancer Sister FH: kidney cancer Breast cancer Social History Social History Alcohol intake: never Patient Tobacco Use Status: Never used Tobacco Use of substances other than those prescribed or required for medical reasons: No Advance Directives: Yes Advance Directives on File: Yes Advance Directives Date on File: 02/25/21 Do you have a plan to hurt others: No Plan 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 Gender identity: Male Physical Exam ED Exam Exam: General: looks age appropriate PERRLA, EOMI, MMM, Some suboccipital tenderness more on the left Neck: Supple, no LAD CV: RRR, no obvious murmurs appreciated Resp: ?No wheezing rales rhonchi no stridor moving air well Abd: ?Bowel sounds are present, no tenderness no rebound no rigidity MSK: FROM, strength 5/5 all extremities Skin: Warm, dry, intact, Neuro: ?Alert and oriented x3, moving upper and lower extremities symmetrically, no obvious facial asymmetry noted, cranial nerves 2-12, left-sided horizontal nystagmus reproducing symptoms no vertical or rotary component, no dysmetria upper or lower extremities Vital Signs: Vital Signs - 24 hr 04/21/25 07:16 04/21/25 07:54 04/21/25 07:57 Temperature 99 F Pulse Rate 108 H 92 102 H Respiratory Rate 16 Blood Pressure 141/73 H 124/84 120/72 Pulse Oximetry 96 Oxygen Delivery Method Room Air 04/21/25 08:00 04/21/25 08:03 04/21/25 08:44 Temperature 98.1 F 97.3 F Pulse Rate 108 H 93 93 Respiratory Rate 20 18 Blood Pressure 122/71 122/71 121/74 Pulse Oximetry 97 96 Oxygen Delivery Method Room Air Room Air BMI result Body Mass Index 24.2 Medications Administered Discontinued Medications Generic Name Dose Route Start Last Admin Trade Name Freq PRN Reason Stop Dose Admin Acetaminophen/Butalbital/Caffeine 1 tab 04/21/25 07:49 04/21/25 08:40 Butalb/Acetamin/Caff 50/325/40 Tablet PO 04/21/25 07:50 1 tab ONCE ONE Administration Ketorolac Tromethamine 15 mg 04/21/25 07:48 04/21/25 08:39 Ketorolac Tromethamine 15 Mg/Ml Vial IM 04/21/25 07:49 15 mg ONCE ONE Administration Meclizine HCl 25 mg 04/21/25 07:48 04/21/25 08:40 Meclizine Hcl 25 Mg Tablet PO 04/21/25 07:49 25 mg ONCE ONE Administration Ondansetron HCl 4 mg 04/21/25 07:49 04/21/25 08:39 Ondansetron Odt 4 Mg Tab.Rapdis TRANSLINGU 04/21/25 07:50 4 mg ONCE ONE Administration Scopolamine 1.5 mg 04/21/25 07:48 04/21/25 08:39 Scopolamine 1.5 Mg Patch.Td.3 EAR-BEHIND 04/21/25 07:49 1.5 mg ONCE ONE Administration Medical Decision Making Medical Decision Making MDM Narrative: 7:54 AM 04/21/2025 (Dr. Deven Degroot): patient examined the fully because he has had multiple complaints still the one thing that he really just wanted to be addressed as the headache this is not of sudden onset which was 10/10 on onset, no fevers or chills no trauma slight nausea no vomiting, the rest of his abdominal cardiac exam back exam is reassuring, I will make sure that work him up for ACS, dehydration, pancreatitis, cholecystitis, no indication that needs further imaging such as ultrasound or CAT scan of the abdomen or CT brain, he does have vertigo left-sided horizontal without any evidence for central causes 9:48 AM 04/21/2025 (Dr. Deven Degroot): re-evaluated, symptoms have improved, Differential Diagnosis Differential Diagnoses: The differential diagnosis associated with the presentation includes Admission/Observation Consideration of admission/observation: Escalation of care including admission/observation considered ( Cholecystitis, pancreatitis, hepatitis, gastritis, cholangitis, choledocholithiasis, SBO, ACS, temporal arteritis, encephalitis, migraine, subarachnoid hemorrhage) Lab Data MDM Lab Attestation statement: I reviewed the patient's lab results. 04/21/25 08:09 04/21/25 08:09 Labs: Lab Results 04/21/25 Range/Units 08:09 WBC 6.5 (4.8-10.8) X10*3/uL RBC 4.98 (4.60-5.80) X10*6/uL Hgb 13.5 L (14.0-18.0) g/dl Hct 42.1 (42.0-52.0) % MCV 84.5 (80.0-98.0) fL MCH 27.1 (27.0-33.0) pg MCHC 32.1 (31.0-36.0) g/dl RDW 13.0 (11.0-16.0) % Plt Count 205 (160-400) X10*3/uL MPV 9.0 L (9.4-12.4) fL Immature Gran % (Auto) 0.3 (0.0-0.4) % Neut % (Auto) 76.1 H (45-73) % Lymph % (Auto) 13.7 L (20-40) % Stafford % (Auto) 9.1 (2-11) % Eos % (Auto) 0.6 (0-4) % Baso % (Auto) 0.2 (0-2) % Lymph # (Auto) 0.9 L (1.2-4.9) X10*3/uL Stafford # (Auto) 0.6 (0.1-1.2) X10*3/uL Eos # (Auto) 0.0 (0.0-0.4) X10*3/uL Baso # (Auto) 0.0 (0.0-0.2) X10*3/uL Abs Immat Gran (auto) 0.02 (0.00-0.03) X10*3/uL Absolute Neuts (auto) 4.9 (2.0-8.3) x10*3/uL Absolute Nucleated RBC 0.000 (0.0-0.012) X10*3/uL Nucleated RBC % (auto) 0.0 (0.0-0.2) /100WBC Sodium 139 (135-145) mmol/L Potassium 5.1 (3.3-5.1) mmol/L Chloride 101 (96-108) mmol/L Carbon Dioxide 28 (22-29) mmol/L Anion Gap 15 (12-20) BUN 14 (9-16) mg/dL Creatinine 0.98 (0.5-1.4) mg/dL Estim Creat Clear Calc 76.1 Estimated GFR > 60 Random Glucose 144 H (60-115) mg/dL Calcium 9.9 D (8.4-10.2) mg/dL Magnesium 2.1 (1.6-2.6) mg/dL Total Bilirubin 0.6 (0.0-1.0) mg/dL AST 82 H (5-37) U/L ALT 126 H (0-40) U/L Alkaline Phosphatase 139 H (39-117) U/L Total Protein 7.6 (6.5-8.0) g/dL Albumin 4.2 (3.5-5.0) g/dL Lipase 19 (8-78) U/L Influenza Type A (PCR) NEGATIVE (Negative) Influenza Type B (PCR) NEGATIVE (Negative) RSV RNA Qual (PCR) NEGATIVE (Negative) SARS-CoV-2 RNA (RT-PCR) NEGATIVE (Negative) Independent Interpretation I performed an independent interpretation of an: EKG ( 96 beats per minute otherwise normal ECG without dysrhythmia, AV daniel blocks or ST-T changes to suspect underlying ACS, my independent interpretation) Discharge Plan Discharge Clinical Impression: Recurrent headache, Nausea, Dizziness Additional Instructions: I did a fairly extensive workup including blood work EKG, your physical exam has been reassuring, your liver enzymes are slightly elevated, some of them has been elevated intermittently for the past few years, there may any causes for this but this can be monitored by your PCP on outpatient basis you can continue taking Tylenol 975 mg as needed for headaches, stay well hydrated and follow up with the PCP any other issues or concerns come back to the ER Prescriptions: No Action Linzess 290 mcg capsule 290 mcg PO QAM Qty: 30 4RF famotidine 40 mg tablet 40 mg PO BEDTIME Qty: 90 3RF ezetimibe 10 mg tablet 10 mg PO DAILY Qty: 90 3RF terazosin 5 mg capsule 5 mg PO BEDTIME 90 Days Qty: 90 1RF dicyclomine 10 mg capsule 10 mg PO BID PRN (Reason: for abdominal pain) Qty: 60 2RF finasteride 5 mg tablet 5 mg PO DAILY 90 Days Qty: 90 2RF Certavite-Antioxidant 18-400 mg-mcg Tablet PO atorvastatin 80 mg tablet 80 mg PO BEDTIME aspirin 81 mg tablet,delayed release (DR/EC) 81 mg PO QAM nitroglycerin 0.4 mg tablet, sublingual 0 mg sublingual primidone 50 mg tablet 50 mg PO BEDTIME topiramate 25 mg capsule,extended release 24hr 25 mg PO DAILY icosapent ethyl [Vascepa] 1 gram capsule PO docusate sodium 100 mg capsule 100 mg PO BEDTIME Qty: 90 3RF fluoxetine 40 mg capsule 80 mg PO DAILY prednisone 20 mg tablet 20 mg PO DAILY 5 Days Qty: 5 0RF sulfamethoxazole-trimethoprim [Bactrim DS] 800-160 mg tablet 1 tab PO BID 14 Days Qty: 28 0RF levetiracetam 500 mg tablet 500 mg PO BID Qty: 180 1RF topiramate 25 mg tablet 25 mg PO .COMPLEX Qty: 90 1RF Rx Instructions: 25 mg orally one at night; Print Language: Cymraes
--- NOTE | 2025-04-21 07:45 | ECG_ITS ---
Test Reason : DIZZINESS Blood Pressure : */* mmHG Vent. Rate : 96 BPM Atrial Rate : 96 BPM P-R Int : 138 ms QRS Dur : 80 ms QT Int : 330 ms P-R-T Axes : 69 1 19 degrees QTcB Int : 416 ms Normal sinus rhythm Normal ECG When compared with ECG of 10-Jan-2025 09:40, Vent. rate has increased by 35 bpm Referred By: Deven Degroot Electronically Signed By: SELVIN ARAIZA
--- OUTSIDE RECORDS SUMMARY | 2025-04-21 07:57 | XMS_ITS | Encounter Summary ---
Author Organization [employer] Address [address] [facility] 7t [place] [address] Care Team Providers Care Long Term Name Role Phone Sherri Selby MD Primary Care Pro vider Liane Alfred MD Unavailable Holly Araujo NP Unavailable Shefali Delgado MD Unavailable [phone] Reason for Visit * Reason Comments Med Refill Encounter Details Date Type Department Care Team (Late st Contact Info) Description 09/01/2024 Refill [facility] MEDICINE [address] [place], [place] [phone] Sherri Selby MD [address] [place], [place] [phone] Flank pain Social History Tobacco Use Types [...] Description 05/24/2025 10:00 AM EST Office Visit [facility] OPTOMETRY [address] [place], [place] [phone] Mitali Kirby, OD [address] [place] [address] 07/02/2025 9:00 AM EST Office Visit [facility] MEDICINE [address] [place] [address] Sherri Selby MD [address] [place] [phone] documented as of this encounter Visit Diagnoses Diagnosis Flank pain Abdominal pain, unspecified site documented in this encounter Additional Health Concerns Assessment Noted Time PHQ-9 Depression Total Score: 7 08/18/19 25 9:01 AM EDT documented as of this encounter Care Teams Long Term Relationship Specialty Start Date End Date Sherri Selby MD [address] [place] [phone] PCP - General Internal Medicine 02/02/23 Liane Alfred MD [address] [facility] [place] [address] Neurology 12/25/24 Holly Araujo NP [address] [place] [address] Urology 12/25/24 Shefali Delgado MD [address] [place] [phone] Hematology and Oncology 12/25/24 [facility] [address] [facility] [phone] (Fax) 12/25/24 [facility]) [address] 2nd Floor [address] [facility] [address] 12/25/24 documented as of this encounter
--- OUTSIDE RECORDS SUMMARY | 2025-04-21 07:57 | XMS_ITS | Clinical Summary ---
Author Organization [employer] Address [address] [facility] 7t [place] [address] Care Team Providers Care Vice President Business Development Name Role Phone Sherri Selby MD Primary Care Pro vider Liane Alfred MD Unavailable Holly Araujo NP Unavailable Shefali Delgado MD Unavailable [phone] Allergies Active Allergy Reactions Criticality Noted [...] 0.4 MG SL tabletIndicati ons:Atheroscle rosis of [place] coronary artery of [place] heart with stable angina pectoris Place 1 [...] MG capsule 08/26/19 24 Active sodium chloride ([place]) 0.65 % nasal spray Administer 1 spray into each nostril if needed for congestion. 15 mL 2 08/18/19 25 026 Active Icosapent Ethyl (Vascepa) 1 g capsule Take 2 capsules (2 g) by mouth with breakfast and with evening meal. 120 capsule 11 5 1:45 PM EST 08/23/19 25 026 Active Multiple Vitamins-Haworth als (CertaVite/Ant ioxidants) tablet TAKE 1 TABLET BY MOUTH EVERY MORNING 90 tablet 3 12/26/19 25 Active ezetimibe (Zetia) 10 MG tablet Take 10 mg by mouth in the morning. 10/30/19 25 Active Aspirin Low Dose 81 MG EC tabletIndicati ons:TIA (transient ischemic attack) TAKE 1 TABLET BY MOUTH EVERY MORNING 90 tablet 1 01/09/20 25 Active Diclofenac Sodium 1 % gel Apply bid to affected area prn pain 100 g 3 04/20/20 25 Active acetaminophen (Tylenol 8 Hour) 650 MG ER tabletIndicati ons:Neck pain, chronic Take 1 tab orally every 8 hours prn pain 60 tablet 04/20/20 25 Active acetaminophen (Tylenol 8 Hour) 650 MG ER tablet Take 1 tablet (650 mg) by mouth every 8 (eight) hours if needed for mild pain. Do not crush, chew, or split. 30 tablet 11/23/19 25 025 Discontinued(Re order (will not trigger notification to Pharmacy)) Active Problems Problem Noted Date Diagnosed Date [...] hemorrhoids and left sided diverticulosis Atherosclerosis of [place] co ronary artery of [place] heart with stable angina pectoris 08/10/2022 Overview (11/24/2022): Cardiac hx Chest pain continued SOB Leg swelling Assessment & Plan (11/24/2022 6:12 PM EDT): Try and locate Cards notes Check BNP F/u PRN Gastroesophageal reflux disease 06/14/2022 Migraine without aura and wi thout status migrainosus, not intractable 06/07/2022 Overview (02/02/2023): Care Managed by [facility] - Pt has chronic left islam migraine. Injury to L islam about 3 years ago. 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) 06/07/2022 Overview (02/02/2023): Dyscognitive seizure disorder with episodes of blurry vision and passing out Care Managed by [facility] Last appt 04/28/22 Treating Keppra [...] to locate records Gave pt card with [facility] Fax number and have all specialists [...] Encounters Date Type Department Care Team Description 04/20/2025 10:00 AM EST Office Visit [facility] [place] [address] Anna Nguyen MD 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) (HCC) (Primary Dx); Body aches; Neck pain, chronic 04/20/2025 Travel 04/18/2025 [address]phone [address] [place] [address] Sherri Selby MD Durable Medical Equipment 03/06/2025 Orders Only [address] [place] [address] Sherri Selby MD Poor memory (Primary Dx) 03/02/2025 Results Follow-Up [address] [address] Sherri Selby MD US Head Neck Soft Tissue 03/01/2025 1:30 PM EDT Office Visit [address] [place] [place] [address] Sherri Selby MD Transaminitis (Primary Dx); Encounter for immunization; Mixed hyperlipidemia; Overweight; Prediabetes; Dysphagia, unspecified type; Health care maintenance; Poor memory 03/01/[address] [address] Sherri Selby MD 03/01/2025 Travel 02/28/[address] [facility] [place] [address] Sherri Selby MD chart prep 02/27/2025 Results Follow-Up [facility] [place] [address] Sherri Selby MD CBC auto differential, Chlamydia/Trichomonas/ Neisseria gonorrhoeae, PCR, Urine, Comprehensive Metabolic Panel, Additional followed-up results: 4 02/19/2025 Orders Only [facility] [address] [place] [address] Sherri Selby MD Health care maintenance (Primary Dx) 02/19/2025 Telephone [facility] MEDICINE [address] [place] [address] Sherri Selby MD Lab Orders 02/11/2025 Telephone [facility] MEDICINE [address] [place] [address] Sherri Selby MD Appointment from Last 3 Months Immunizations Immunization Administration [...] Mass Index 28.15 04/20/2025 9:46 AM EST Plan of Treatment Upcoming Encounters Date Type Department Care Team (Late st Contact Info) Description 05/24/2025 10:00 AM EST Office Visit [facility] OPTOMETRY [address] [place] [address] Mitali Kirby, OD [address] [facility] [place] [address] 07/02/2025 9:00 AM EST Office Visit [facility] MEDICINE [address] [place], [place] [phone] Sherri Selby MD [address] [place], [place] [phone] Health Maintenance Due Date Last Done Comments [...] 03/25/2026 023, 05/02/2019, 06/16/2018, Additional history exists Tobacco Screening 04/20/2026 04/20/2025 Lipid Panel 02/27/2030 02/27/2025, 04/3 , 03/19/2024, Additional history exists DTaP/Tdap/Td Vaccines (4 [...] Routine 04/20/2025 9:56 AM EST Body aches US HEAD NECK SOFT TISSUE Routine 03/01/2025 [...] Recently Relevant to Health Maintenance Results * POCT Rapid Influenza B STARR ID NOW (04/20/2025 9:59 AM EST) Pathologist [facility] Influenza B Negative Negative, Indeterminate [facility] QC Media Lot # [id number] [facility] Lot# Expiration Date [facility] Swab 04/20/2025 9:59 AM EST Anna Nguyen MD POINT OF CARE TEST ENTER/EDIT ORDERABLES Final Result Performing Organization Address City/[facility]/ZIP Co de Phone Number [facility] [address] [place] [phone] * POCT Rapid Influenza A STARR ID NOW (04/20/2025 9:57 AM EST) [facility] Influenza A Negative Negative, Indeterminate [facility] QC Media Lot # [id number] [facility] Lot# Expiration Date [facility] Swab 04/20/2025 9:57 AM EST us Anna Nguyen MD POINT OF CARE TEST ENTER/EDIT ORDERABLES Final Result Performing Organization Address City/[facility] Co de Phone Number [facility] [address] [place] [phone] * POCT Rapid Covid-19 BinaxNOW (04/20/2025 9:56 AM EST) Pathologist [facility] Rapid COVID Ag Negative QC Media Lot # [id number] Lot# Expiration Date [id number] Swab 04/20/2025 9:56 AM EST us Anna Nguyen MD POINT OF CARE TEST ENTER/EDIT ORDERABLES Final Result * US Head Neck Soft Tissue (03/01/2025 5:35 PM EDT) Anatomical Region Laterality Modality Head, Neck Ultrasound 03/01/2025 5:35 PM EDT Narrative 03/01/2025 5:38 PM EDT [place] [address] Ultrasound Report Signed Patient: Inderjit Stoner MR #: [id number] : 1960 Acct:[id number] Age/Sex: 64 / M ADM Date: 02/28/25 Loc: HO.US Attending Dr: Sherri Navarro MD Ordering Physician: Sherri Selby MD Date of Service: 02/28/25 Procedure(s): US soft tiss head and/or neck Accession Number(s): [id number] cc: Sherri Selby MD Reason for Exam: [...] signed by Ghassan Haskins MD in OV> 03/01/25 1737 DD/ 34 TD/TT: 03/01/251734 Chip Mucker: Procedure Note Donzanderinterpreter, Image - 03/01/[address] [address] Ultrasound Report Signed Patient: Inderjit Stoner [facility] #: [id number] : 1960cct:[id number] Age/Sex: 64 / MADM Date: 02/28/25 Loc: HO.US Attending Dr: Sherri Navarro MD Ordering Physician: Sherri Selby MD Date of Service: 02/28/25 Procedure(s): US soft tiss head and/or neck Accession Number(s): [id number] cc: Sherri Selby MD Reason for Exam: [...] signed by Ghassan Haskins MD in OV> 03/01/25 1737 DD/ 34 TD/TT: 03/01/251734 Chip Mucker: us Sherri Navarro MD IMG US PROCEDURES Final Result * Chlamydia/Trichomonas/Neisseria gonorrhoeae, PCR, Urine (02/27/2025 9:09 AM EDT) CT PCR, Urine NOT DETECTED Not Detect. [facility] Comment:A not detected test result does [...] NG PCR, Urine NOT DETECTED Not Detect. [facility] Comment:A not detected test result does [...] Final Result Performing Organization Address [facility] Co de Phone Number [facility] [address] [place] [phone] * Syphilis Screen (02/27/2025 9:09 AM EDT) Syphilis Screen Nonreactive Nonreactive [facility] Blood 02/27/2025 9:09 AM EDT 02/27/2025 11:17 AM EDT us Sherri Navarro MD LAB BLOOD ORDERAB LES Final Result Performing Organization Address [facility] Co de Phone Number [facility] [address] [place] [phone] * Vitamin B12 (Cobalamin) and Folate Panel, Serum (02/27/2025 9:09 AM EDT) Pathologist [facility] Vitamin B12 442 200 - 900 pg/mL [facility] Comment:NORMAL 200-900 PG/ML INDETERMINATE 160-199 PG/ML DEFICIENT < 160 PG/ML Folate 13.7 > or = 4.0 ng/mL [facility] Comment:Reference Values:> o r = 4.0 ng/mL< 4.0 ng/mL suggests folate deficiency Methotrexate, aminopterin and folinic acid(leucovorin) are chemotherapeutic agents whose molecularstructures are similar to folate; therefore, the Architectfolate assay cannot be used for patients using these drugs. Blood 02/27/2025 9:09 AM EDT 02/27/2025 11:17 AM EDT us Sherri Navarro MD LAB BLOOD ORDERAB LES Final Result Performing Organization Address [facility]/ZIP Co de Phone Number [facility] [address] [place] [phone] * TSH with Reflex to Free T4 (02/27/2025 9:09 AM EDT) [facility] TSH reflex Free T4 1.09 0.32 - 4.0 uIU/mL [facility] Blood 02/27/2025 9:09 AM EDT 02/27/2025 11:17 AM EDT us Sherri Navarro MD LAB BLOOD ORDERAB LES Final Result [facility] [address] [place] [phone] [phone] * (ABNORMAL) CBC auto differential (02/27/2025 9:09 AM EDT) [facility] White Blood Count 4.3(L) 4.8 - 10.8 X10*3/uL [facility] Red Blood Count 5.41 4.60 - 5.80 X10*6/uL [facility] Hemoglobin 14.6 14.0 - 18.0 g/dl [facility] Hematocrit 46.6 42.0 - 52.0 % [facility] Mean Corpuscular Volume 86.1 80.0 - 98.0 fL [facility] Mean Corpuscular Hemoglobin 27.0 27.0 - 33.0 pg [facility] Mean Corpuscular HGB Conc 31.3 31.0 - 36.0 g/dl [facility] Red Cell Distribution Width 13.3 11.0 - 16.0 % [facility] Platelet Count 211 160 - 400 X10*3/uL [facility] Mean Platelet Volume 10.5 9.4 - 12.4 fL [facility] Neutrophils Percent Auto 43.3(L) 45 - 73 % [facility] Imm Gran Pct Auto 0.2 0.0 - 0.4 % [facility] Lymphocytes Percent Auto 45.7(H) 20 - 40 % [facility] Monocytes Percent Auto 8.4 2 - 11 % [facility] Eosinophils Percent Auto 1.9 0 - 4 % [facility] Basophils Percent Auto 0.5 0 - 2 % [facility] NRBC Pct Auto 0.0 0.0 - 0.2 /100WBC [facility] Neutrophils Absolute Auto 1.9(L) 2.0 - 8.3 x10*3/uL [facility] Imm Gran Abs Auto 0.01 0.00 - 0.03 X10*3/uL [facility] Lymphocytes Absolute Auto 2.0 1.2 - 4.9 X10*3/uL [facility] Monocytes Absolute Auto 0.4 0.1 - 1.2 X10*3/uL [facility] Eosinophils Absolute Auto 0.1 0.0 - 0.4 X10*3/uL [facility] Basophils Absolute Auto 0.0 0.0 - 0.2 X10*3/uL [facility] NRBC Abs Auto 0.000 0.0 - 0.012 X10*3/uL [facility] Blood Venous blood specimen / Unknown 02/27/2025 9:09 AM EDT 02/27/2025 11:06 AM EDT us Sherri Navarro MD LAB BLOOD ORDERAB LES Final Result Performing Organization Address City/[facility]/ZIP Co de Phone Number [facility] [address] [place] [phone] * Hepatitis C Antibody with Reflex to HCV, RNA, Quantitative, Real-Time PCR (02/27/2025 9:09 AM EDT) Pathologist [facility] Hepatitis C Antibody Nonreactive Nonreactive [facility] Comment:Antibodies to HCV no t detected; does not exclude early acuteHCV infection. Blood Venous blood specimen / Unknown 02/27/2025 9:09 AM EDT 02/27/2025 11:17 AM EDT us Sherri Navarro MD LAB BLOOD ORDERAB LES Final Result Performing Organization Address City/[facility]/ZIP Co de Phone Number [facility] [address] [place] [phone] * Hepatitis B surface antigen, EIA (02/27/2025 9:09 AM EDT) [facility] Hepatitis B Surface Ag Negative Negative [facility] Blood Venous blood specimen / Unknown 02/27/2025 9:09 AM EDT 02/27/2025 11:17 AM EDT us Sherri Navarro MD LAB BLOOD ORDERAB LES Final Result [facility] [address] [place] [phone] * Hepatitis B Core Antibody, Total (02/27/2025 9:09 AM EDT) Pathologist [facility] Hepatitis B Core Antibody Nonreactive Nonreactive [facility] Blood Venous blood specimen / Unknown 02/27/2025 9:09 AM EDT 02/27/2025 11:17 AM EDT us Sherri Navarro MD LAB BLOOD ORDERAB LES Final Result Performing Organization Address [facility] Co de Phone Number [facility] [address] [place] [phone] * HIV-1/2 Antigen and Antibodies, Fourth Generation, with Reflexes (02/27/2025 9:09 AM EDT) [facility] HIV AB/AG Nonreactive Nonreactive [facility] Comment:HIV-1 p24 Ag and/or HIV-1/HIV-2 Ab not detected.A test result that is nonreactive does not exclude thepossibility of exposure to or infection with HIV-1 and/orHIV-2. Nonreactive results in this assay for individualswith prior exposure to HIV-1 and/or HIV-2 may be due toantigen and antibody levels that are below the limit ofdetection of this assay.The [employer] HIV Ag/Ab Combo assay result andsupplemental assay results should be interpreted inconjunction with the patient's clinical presentation,history and other laboratory results. If the results areinconsistent with clinical evidence, additional testing issuggested to confirm the result. Blood Venous blood specimen / Unknown 02/27/2025 9:09 AM EDT 02/27/2025 11:17 AM EDT us Sherri Navarro MD LAB BLOOD ORDERAB LES Final Result Performing Organization Address City/[facility]/ZIP Co de Phone Number [facility] [address] [place] [phone] * Hepatitis B Surface Antibody, Qualitative (02/27/2025 9:09 AM EDT) [facility] ~Hepatitis B Surface Antibody REACTIVE Nonreactive [facility] Comment:REACTIVE: > 11.99 mI U/mL Blood Venous blood specimen / Unknown 02/27/2025 9:09 AM EDT 02/27/2025 11:17 AM EDT us Sherri Navarro MD LAB BLOOD ORDERAB LES Final Result Performing Organization Address City/[facility]/ZIP Co de Phone Number [facility] [address] [place] [phone] * Hemoglobin A1c (02/27/2025 9:09 AM EDT) Hemoglobin A1c 5.7 <6.0 % [facility] Comment:Hemoglobin A1C Refer ence Range Adults: 4.8 - 6.0 % Non diabetic: < 6.0 % Goal: < 7.0 %Additional Action Suggested: > 8.0 %Note: Hemoglobin A1c results are invalid for patients with abnormal amounts of HbF. Blood transfusions may impact the HbA1c concentration in the patient sample. Estimated Average Glucose 117 mg/dL [facility] Comment:eAG = Estimated ave rage glucose which is %A1C expressed asaverage glucose, using the formula of the R1E-IkegqqdNpqatbl Glucose study (ADAG), Diabetes Care, Vol.31,#8,Dec. 2007 Blood Venous blood specimen / Unknown 02/27/2025 9:09 AM EDT 02/27/2025 11:06 AM EDT us Sherri Navarro MD LAB BLOOD ORDERAB LES Final Result Performing Organization Address City/[facility]/ZIP Co de Phone Number [facility] [address] [place] [phone] * Lipid Panel, Standard (02/27/2025 9:09 AM EDT) Triglycerides 103 <150 mg/dL [facility] Comment:Desirable Triglyceri de: less than 150 mg/dLBorderline High Triglyceride 150-199 mg/dLHigh Triglyceride: 200-499 mg/dLVery High Triglyceride: greater than or equal to 5OO mg/dL Cholesterol 160 <200 mg/dL [facility] Comment:Desirable Cholestero l: less than 200 mg/dLBorderline High Cholesterol: 200-239 mg/dLHigh Cholesterol: greater than 239 mg/dL LDL Cholesterol Calculated 97 <100 mg/dL [facility] Comment:Desirable LDL: less than 100 mg/dLNear Optimal/Above Optimal LDL: 110- 129 mg/dLBorderline High LDL: 130-159 mg/dLHigh LDL: 160-189 mg/dLVery High LDL: greater than or equal to 190 mg/dL HDL Cholesterol 43 >40 mg/dL [facility] Comment:Desirable HDL: great er than 40 mg/dL Note: This HDL assay may give artificially low results in patients with liver disease. Blood Venous blood specimen / Unknown 02/27/2025 9:09 AM EDT 02/27/2025 11:17 AM EDT Sherri Navarro MD LAB BLOOD ORDERAB LES Final Result [facility] [address] [place] [phone] * (ABNORMAL) Comprehensive Metabolic Panel (02/27/2025 9:09 AM EDT) Sodium 143 135 - 145 mmol/L [facility] Potassium 4.4 3.3 - 5.1 mmol/L [facility] Chloride 110(H) 96 - 108 mmol/L [facility] Carbon Dioxide 25 22 - 29 mmol/L [facility] Anion Gap 12 12 - 20 [facility] Urea Nitrogen (BUN) 16 9 - 16 mg/dL [facility] Creatinine, Serum 0.93 0.5 - 1.4 mg/dL [facility] Estimated Glomerular Filt Rate >60 [facility] Comment:Chronic Kidney Disea se: Estimated GFR < 60 mL/min/1.31b0Fprkyp Kidney Disease: Estimated GFR < 15 mL/min/1.73m2 Glucose 95 60 - 115 mg/dL [facility] Calcium 9.3 8.4 - 10.2 mg/dL [facility] Bilirubin, Total 0.9 0.0 - 1.0 mg/dL [facility] Aspartate Amino Transferase 24 5 - 37 U/L [facility] Alanine Aminotransferase 54(H) 0 - 40 U/L [facility] Total Protein 7.0 6.5 - 8.0 g/dL [facility] Albumin Level 4.5 3.5 - 5.0 g/dL [facility] Alkaline Phosphatase 84 39 - 117 U/L [facility] Blood Venous blood specimen / Unknown 02/27/2025 9:09 AM EDT 02/27/2025 11:17 AM EDT Sherri Navarro MD LAB BLOOD ORDERAB LES Final Result [facility] [address] [place] [phone] [phone] * Occult Blood, Fecal, Immunoassay (10/04/2024 12:00 AM EDT) Fecal Globin By Immunochemistry SEE NOTE [facility] [employer] [facility] Comment: FECAL GLOBIN BY IMMUNOCHEMISTRY Micro Number: [id number] Test Status: Final Specimen Source: Insure () fobt test card Specimen Quality: Inadequate Fecal Globin: Test not performed. The specimen was received in an collection container. Reference Range: Not Detected 10/04/2024 10/11/2024 4:3 0 AM EDT Narrative [facility] - 10/11/2024 4:36 AM EDT FASTING: UNKNOWN Sherri Navarro MD LAB BODY FLUIDS A ND STOOLS ORDERABLES Final Result [facility] [address] [place] [address] [facility] [employer] [address] [place] [phone] from Last 3 Months or Most Recently Relevant to Health Maintenance Insurance [facility] ONE CARE < 65 DENTAL - [facility] Care Teams Vice President Business Development Relationship Specialty Start Date End Date Sherri Selby MD [address] [place] [address] PCP - General Internal Medicine 02/02/23 Liane Alfred MD [address] [place] [address] [place] [address] Neurology 12/25/24 Holly Araujo NP [address] [place] [address] Urology 12/25/24 Shefali Delgado MD [address] [place] [phone] Hematology and Oncology 12/25/24 [facility] [address] [facility] [address] [phone] (Fax) 12/25/24 [facility]) [address] 2nd Floor [address] [facility] [address] 12/25/24
--- OUTSIDE RECORDS SUMMARY | 2025-04-21 07:57 | XMS_ITS | Encounter Summary ---
Author Organization [employer] Address 75 [facility] 7t [place] [address] Care Team Providers Care Pitching Coach Name Role Phone Lorenza Hodge SENIOR EDITOR Primary Care Provider Sherri Leyva MD Primary Care Pro vider Liane Alfred MD Unavailable Holly Araujo NP Unavailable Shefali Delgado MD Unavailable [phone] Reason for Visit * Reason Onset Date Comments triage 06/11/2022 Encounter Details Date Type Department Care Team (Late st Contact Info) Description 06/11/2022 Telephone [facility] MEDICINE [address] [place] [address] [phone] Lorenza Hodge FNP triage Social History Tobacco [...] on pt. Voice mail to call back [facility] nurses at [phone] or if emergent care needed to go [...] Description 05/24/2025 10:00 AM EST Office Visit [facility] OPTOMETRY [address] [place] [address] Mitali Kirby, OD 267 [place] [address] 07/02/2025 9:00 AM EST Office Visit [facility] MEDICINE 230 [place] [address] Sherri Selby MD 230 [place] [address] documented as of this encounter Visit Diagnoses Not on filedocumented in this encounter Care Teams Pitching Coach Relationship Specialty Start Date End Date Lorenza Hodge FNP PCP - General Family Medicine 04/05/22 02/01/23 Sherri Selby MD [address] [place] [address] PCP - General Internal Medicine 02/02/23 Liane Alfred MD [address] [facility] [place] [address] Neurology 12/25/24 Holly Araujo NP [address] [place] [address] Urology 12/25/24 Shefali Delgado MD [address] [place] [address] Hematology and Oncology 12/25/24 [facility] [address] [address] [phone] (Fax) 12/25/24 [facility]) [address] 2nd Floor [address] [facility] [address] 12/25/24 documented as of this encounter
--- OUTSIDE RECORDS SUMMARY | 2025-04-21 07:57 | XMS_ITS | Encounter Summary ---
Author Organization [employer] Address 75 [facility] 7t [place] [address] Care Team Providers Care Children'S Attendant Name Role Phone Lorenza Hodge Primary Care Provider Sherri Leyva MD Primary Care Pro vider Liane Alfred MD Unavailable [phone] Holly Araujo NP Unavailable Shefali Delgado MD Unavailable [phone] Encounter Details Date Type Department Care Team (Late st Contact Info) Description 11/25/2022 Orders Only [facility] MEDICINE 230 [place], [place] [phone] Lorenza Hodge FNP Social History Tobacco Use [...] Description 05/24/2025 10:00 AM EST Office Visit [facility] OPTOMETRY 267 [place], [place] [phone] Mitali Kirby OD [address] [place], [place] [phone] 07/02/2025 9:00 AM EST Office Visit [facility] MEDICINE 230 [place], [place] [phone] Sherri Selby MD 230 [place], [place] [phone] documented as of this encounter Procedures Procedure Name Priority Date/Time Associated Diagnosis Comments US RENAL BI Routine 12/06/2022 1:54 PM EDT documented in this encounter Results * US RENAL BI (12/06/2022 1:54 PM EDT) Anatomical Region Laterality Modality Abdomen Ultrasound 12/06/2022 1:54 PM EDT Narrative 12/09/2022 6:44 PM EDT [address] [address] Ultrasound Report Signed Patient: Inderjit Stoner MR #: [id number] : [id number] Acct:[id number] Age/Sex: 62 / M ADM Date: 12/06/22 Loc: HO.US Attending Dr: Lorenza Hodge INDUSTRIAL HEALTH AND SAFETY PROFESSOR Ordering Physician: Lorenza Hodge Date of Service: 12/06/22 Procedure(s): US renal BI Accession Number(s): [id number] cc: Lorenza Hodge INDUSTRIAL HEALTH AND SAFETY PROFESSOR EXAMINATION: US RETROPERITONEAL LIMITED (RENAL ONLY) CLINICAL [...] MD in OV> 12/09/221840 DD/ 1354 TD/TT: Contact Lens Fitter: Procedure Note Donotuseinterpreter, Image - 12/09/[address] [address] Ultrasound Report Signed Patient: Inderjit Stoner AMR #: [id number] : [id number] Age/Sex: 62 / MADM Date: 12/06/22 Loc: HO.US Attending Dr: Lorenza Hodge INDUSTRIAL HEALTH AND SAFETY PROFESSOR Ordering Physician: Lorenza Hodge Date of Service: 12/06/22 Procedure(s): US renal BI Accession Number(s): [id number] cc: Lorenza Hodge EXAMINATION: US RETROPERITONEAL LIMITED [...] MD in OV> 12/09/221840 DD/ 1354 TD/TT: Contact Lens Fitter: us Lorenza Mojgan Hodge INDUSTRIAL HEALTH AND SAFETY PROFESSOR IMG US PROCEDURES Edited R esult - Final documented in this encounter Visit Diagnoses Not on filedocumented in this encounter Additional Health Concerns Assessment Noted Time PHQ-9 Depression Total Score: 16 08/10/ 023 9:09 AM EDT documented as of this encounter Care Teams Children'S Attendant Relationship Specialty Start Date End Date Lorenza Hodge FNP PCP - General Family Medicine 04/05/22 02/01/23 Sherri Selby MD 230 [place] [address] PCP - General Internal Medicine 02/02/23 Liane Alfred MD [address] [place] [address] Dr Cleaning [address] [place] [address] Neurology 12/25/24 Holly Araujo NP [address] [place] [address] Urology 12/25/24 Shefali Delgado MD [address] [place] [address] Hematology and Oncology 12/25/24 [facility] 7[address] [facility] [address] [phone] (Fax) 12/25/24 [facility]) [address] [place] [address] 2nd Floor [address] [facility] [address] 12/25/24 documented as of this encounter
--- OUTSIDE RECORDS SUMMARY | 2025-04-21 07:57 | XMS_ITS | Encounter Summary ---
Author Organization [employer] Address [address] [facility] [address] 7t [place] [address] Care Team Providers Care Outside Deliverer Name Role Phone Sherri Selby MD Primary Care Pro vider Liane Alfred MD Unavailable Holly Araujo NP Unavailable Shefali Delgado MD Unavailable [phone] Encounter Details Date Type Department Care Team (Latest Contact Info) Description 04/20/2025 Travel Social History Tobacco Use Types Packs/Day Years [...] Description 05/24/2025 10:00 AM EST Office Visit [facility] OPTOMETRY 267 [place] [address] Mitali Kirby, OD 267 [place] [address] 07/02/2025 9:00 AM EST Office Visit [facility] MEDICINE [address] [place] [address] Sherri Selby MD [address] [place] [address] documented as of this encounter Visit Diagnoses Not on filedocumented in this encounter Additional Health Concerns Assessment Noted Time PHQ-9 Depression Total Score: 7 08/18/19 25 9:01 AM EDT documented as of this encounter Care Teams Outside Deliverer Relationship Specialty Start Date End Date Sherri Selby MD [address] [place] [address] PCP - General Internal Medicine 02/02/23 Liane Alfred MD [address] [place] [address] [facility] Tom [facility] [address] Neurology 12/25/24 Holly Araujo NP [address] [place] [address] Urology 12/25/24 Shefali Delgado MD [address] [place] [address] Hematology and Oncology 12/25/24 [facility] 759 [facility] [address] [phone] (Fax) 12/25/24 [facility] [address] 2nd Floor [address] [facility] [address] 12/25/24 documented as of this encounter
--- OUTSIDE RECORDS SUMMARY | 2025-04-21 07:57 | XMS_ITS | Encounter Summary ---
Author Organization [employer] Address 75 [facility] 7t [place] [address] Care Team Providers Care Rn Care Manager Name Role Phone Funmi Easton MD Primary Care Provider Lorenza Stroud Primary Care Provider Sherri Leyva MD Primary Care Pro vider Liane Alfred MD Unavailable Holly Araujo NP Unavailable Shefali Delgado MD Unavailable [phone] Encounter Details Date Type Department Care Team (Latest Contact Info) Description 05/02/2019 Abstract [facility] CONVERSIONS Dental, Provider, DDS Social History [...] Description 05/24/2025 10:00 AM EST Office Visit [facility] OPTOMETRY 267 [place], [place] [phone] Mitali Kirby, OD 267 [place], [place] [phone] 07/02/2025 9:00 AM EST Office Visit [facility] MEDICINE 230 [place], [place] [phone] Sherri Selby MD 230 [place] [address] documented as of this encounter Visit Diagnoses Not on filedocumented in this encounter Care Teams Rn Care Manager Relationship Specialty Start Date End Date Funmi Easton MD PCP - General Family Medicine 03/20/19 04/04/22 Lorenza Hodge FNP PCP - General Family Medicine 04/05/22 02/01/23 Sherri Selby MD 230 [place] [address] PCP - General Internal Medicine 02/02/23 Liane Alfred MD [address] [place] [address] [place] [address] Neurology 12/25/24 Holly Araujo NP [address] [place] [address] Urology 12/25/24 Shefali Delgado MD [address] [place] [address] Hematology and Oncology 12/25/24 [facility] 9 [facility] [address] [phone] (Fax) 12/25/24 [facility]) [address] 2nd Floor [address] [facility] [address] 12/25/24 documented as of this encounter
--- OUTSIDE RECORDS SUMMARY | 2025-04-21 07:57 | XMS_ITS | Encounter Summary ---
Author Organization [employer] Address 75 [facility] 7t [place] [address] Care Team Providers Care Restaurant Delivery Driver Name Role Phone Funmi Easton MD Primary Care Provider Lorenza Stroud Primary Care Provider Sherri Leyva MD Primary Care Pro vider Liane Alfred MD Unavailable Holly Araujo NP Unavailable Shefali Delgado MD Unavailable [phone] Encounter Details Date Type Department Care Team (Latest Contact Info) Description 03/23/2021 Abstract [facility] CONVERSIONS [...] [facility] OPTOMETRY 267 [place], [place] [phone] Mitali Kirby, OD 267 [place], [place] [phone] 07/02/2025 9:00 AM EST Office Visit [facility] MEDICINE 230 [place], [place] [phone] Sherri Selby MD 230 [place] [address] documented as of this encounter Visit Diagnoses Not on filedocumented in this encounter Care Teams Restaurant Delivery Driver Relationship Specialty Start Date End Date Funmi Easton MD PCP - General Family Medicine 03/20/19 04/04/22 Lorenza Hodge FNP PCP - General Family Medicine 04/05/22 02/01/23 Sherri Selby MD 230 [place] [address] PCP - General Internal Medicine 02/02/23 Liane Alfred MD [address] [place] [address] [place] [address] Neurology 12/25/24 Holly Araujo NP [address] [place] [address] Urology 12/25/24 Shefali Delgado MD [address] [place] [address] Hematology and Oncology 12/25/24 [facility] 9 [facility] [address] [phone] (Fax) 12/25/24 [facility]) [address] 2[address] Floor [address] [facility] [address] 12/25/24 documented as of this encounter
--- OUTSIDE RECORDS SUMMARY | 2025-04-21 07:57 | XMS_ITS | Encounter Summary ---
Author Organization [employer] Address 75 [facility] 7t [place] [address] Care Team Providers Care Director Regulatory Affairs Name Role Phone Funmi Easton MD Primary Care Provider Lorenza Stroud Primary Care Provider Sherri Leyva MD Primary Care Pro vider Liane Alfred MD Unavailable Holly Araujo NP Unavailable Shefali Delgado MD Unavailable [phone] Encounter Details Date Type Department Care Team (Latest Contact Info) Description 12/24/2021 Abstract [facility] CONVERSIONS Dental, Provider, DDS Social History [...] Description 05/24/2025 10:00 AM EST Office Visit [facility] OPTOMETRY 267 [place], [place] [phone] Mitali Kirby, OD 267 [place], [place] [phone] 07/02/2025 9:00 AM EST Office Visit [facility] MEDICINE 230 [place], [place] [phone] Sherri Selby MD 230 [place] [address] documented as of this encounter Visit Diagnoses Not on filedocumented in this encounter Care Teams Director Regulatory Affairs Relationship Specialty Start Date End Date Funmi Easton MD PCP - General Family Medicine 03/20/19 04/04/22 Lorenza Hodge FNP PCP - General Family Medicine 04/05/22 02/01/23 Sherri Selby MD 230 [place] [address] PCP - General Internal Medicine 02/02/23 Liane Alfred MD [address] [place] [address] [place] [address] Neurology 12/25/24 Holly Araujo NP [address] [place] [address] Urology 12/25/24 Shefali Delgado MD [address] [place] [address] Hematology and Oncology 12/25/24 [facility] 9 [facility] [address] [phone] (Fax) 12/25/24 [facility]) [address] 2[address] Floor [address] [facility] [address] 12/25/24 documented as of this encounter
--- OUTSIDE RECORDS SUMMARY | 2025-04-21 07:57 | XMS_ITS | Encounter Summary ---
Author Organization [employer] Address 75 [facility] 7t [place] [address] Care Team Providers Care Clinical Physician Assistant Name Role Phone Sherri Selby MD Primary Care Pro vider Liane Alfred MD Unavailable Holly Araujo NP Unavailable Shefali Delgado MD Unavailable [phone] Reason for Visit * Reason Onset Date Comments Durable Medical Equipment 04/18/2025 Encounter Details Date Type Department Care Team (Late st Contact Info) Description 04/18/2025 Telephone [facility] MEDICINE 230 [place], [place] [phone] Sherri Selby MD 230 [place], [place] [phone] Durable Medical Equipment Social History Tobacco Use [...] * Telephone Encounter - Erika Truong - 04/18/2025 4:14 PM EST Please see below message and advise if agree. Thank you * Telephone Encounter - Erika Alexi - 04/18/2025 4:14 PM EST ----- Message from Mitali Ibrahim sent at 04/18/2025 11:37 AM EST ----- Regarding: DME request Contact: Yaquelin, I am Mitali Olson, Instructional Services Librarian for [facility], requesting the following DME???s on behalf of patient. DME Item: -[employer]ath[employer] Supportive DX: Unsteady Gait Hx of Lumbar post-laminectomy syndrome If you should have any inquiries regarding this request, feel free to contact the Instructional Services Librarian below. Deck Engineer: Mitali Olson E-mail: [email or web address] Portable Sawyer: Tala Moses documented in this encounter Plan of Treatment Upcoming Encounters Date Type Department Care Team (Late st Contact Info) Description 05/24/2025 10:00 AM EST Office Visit [facility] OPTOMETRY 267 [place] [address] Mitali Kirby, OD 267 [place] [address] 07/02/2025 9:00 AM EST Office Visit [facility] MEDICINE 230 [place] [address] Sherri Selby MD 230 [place] [address] documented as of this encounter Visit Diagnoses Not on filedocumented in this encounter Additional Health Concerns Assessment Noted Time PHQ-9 Depression Total Score: 7 08/18/19 9:01 AM EDT documented as of this encounter Care Teams Clinical Physician Assistant Relationship Specialty Start Date End Date Sherri Selby MD 230 [place] [address] PCP - General Internal Medicine 02/02/23 Liane Alfred MD [address] [place] [address] [place] [address] Neurology 12/25/24 Holly Araujo NP [address] [place] [address] Urology 12/25/24 Shefali Delgado MD [address] [place] [address] Hematology and Oncology 12/25/24 [facility] [address] [place] [address] [phone] (Fax) 12/25/24 [facility]) [address] 2nd Floor [address] [facility] [address] 12/25/24 documented as of this encounter
--- OUTSIDE RECORDS SUMMARY | 2025-04-21 07:57 | XMS_ITS | Encounter Summary ---
Author Organization [employer] Address 75 [facility] 7t [place] [address] Care Team Providers Care Car Stereo Installer Name Role Phone Sherri Selby MD Primary Care Pro vider Liane Alfred MD Unavailable Holly Araujo NP Unavailable Shefali Delgado MD Unavailable [phone] Encounter Details Date Type Department Care Team (Latest Contact Info) Description 02/27/2025 Results Follow-Up [facility] [address] [place] [address] [phone] Sherri Selby MD 230 [place], [place] [phone] CBC auto differential, Chlamydia/Trichomonas/ Neisseria gonorrhoeae, PCR, [...] Description 05/24/2025 10:00 AM EST Office Visit [facility] OPTOMETRY 267 [place], [place] [phone] Mitali Kirby, OD 267 [place], [place] [phone] 07/02/2025 9:00 AM EST Office Visit [facility] MEDICINE 230 [place], [place] [phone] Sherri Selby MD 230 [place], [place] [phone] documented as of this encounter Visit Diagnoses Not on filedocumented in this encounter Additional Health Concerns Assessment Noted Time PHQ-9 Depression Total Score: 7 08/18/19 25 9:01 AM EDT documented as of this encounter Care Teams Car Stereo Installer Relationship Specialty Start Date End Date Sherri Selby MD 230 [place] [address] PCP - General Internal Medicine 02/02/23 Liane Alfred MD [address] [place] [address] Dr Cleaning [address] [place] [address] Neurology 12/25/24 Holly Araujo NP [address] [place] [address] Urology 12/25/24 Shefali Delgado MD [address] [place] [address] Hematology and Oncology 12/25/24 [facility] SLEEP MEDICINE 759 [facility] [address] [phone] (Fax) 12/25/24 [facility]) [address] 2[address] Floor [address] [facility] [address] 12/25/24 documented as of this encounter
--- OUTSIDE RECORDS SUMMARY | 2025-04-21 07:57 | XMS_ITS | Encounter Summary ---
Author Organization [employer] Address 75 [facility] 7t [place] [address] Care Team Providers Care Assistant Plant Manager Name Role Phone Sherri Selby MD Primary Care Pro vider Liane Alfred MD Unavailable [phone] Holly Araujo NP Unavailable Shefali Delgado MD Unavailable [phone] Reason for Visit * Reason Onset Date Comments Results 05/05/2023 Encounter Details Date Type Department Care Team (Late st Contact Info) Description 05/05/2023 Telephone [facility] MEDICINE 230 [place], [place] [phone] Sherri Selby MD 230 [place], [place] [phone] Results Social History Tobacco Use Types Packs/Day [...] results of spine. Please contact pt at [phone] documented in this encounter Plan of Treatment Upcoming Encounters Date Type Department Care Team (Late st Contact Info) Description 05/24/2025 10:00 AM EST Office Visit [facility] OPTOMETRY 267 [place] [address] Kofi Mitali, OD 267 [place] [address] 07/02/2025 9:00 AM EST Office Visit [facility] MEDICINE 230 [place] [address] Sherri Selby MD 230 [place] [address] documented as of this encounter Visit Diagnoses Not on filedocumented in this encounter Additional Health Concerns Assessment Noted Time PHQ-9 Depression Total Score: 16 023 9:09 AM EDT documented as of this encounter Care Teams Assistant Plant Manager Relationship Specialty Start Date End Date Sherri Selby MD [address] [place] [address] [place] [address] PCP - General Internal Medicine 02/02/23 Liane Alfred MD [address] [place] [address] [place] [address] Neurology 12/25/24 Holly Araujo NP [address] [facility] [address] [place] [address] Urology 12/25/24 Shefali Delgado MD [address] [place] [address] Hematology and Oncology 12/25/24 [facility] 759 [facility] [address] [phone] (Fax) 12/25/24 [facility] 10 [facility] 2nd Floor [address] [facility] [address] 12/25/24 documented as of this encounter
[2025-04-21 08:14] LABS: MANUAL DIFF FLAG NO
[2025-04-21 08:15] LABS: Hematocrit 42.1 % (42.0-52.0); Hemoglobin 13.5 g/dl (14.0-18.0); Imm Gran Abs Auto 0.02 X10*3/uL (0.00-0.03); Imm Gran Pct Auto 0.3 % (0.0-0.4); Lymphocytes Absolute Auto 0.9 X10*3/uL (1.2-4.9); Mean Corpuscular HGB Conc 32.1 g/dl (31.0-36.0); Mean Corpuscular Hemoglobin 27.1 pg (27.0-33.0); Mean Corpuscular Volume 84.5 fL (80.0-98.0); NRBC Abs Auto 0.000 X10*3/uL (0.0-0.012); NRBC Pct Auto 0.0 /100WBC (0.0-0.2); Platelet Count 205 X10*3/uL (160-400); Red Blood Count 4.98 X10*6/uL (4.60-5.80); White Blood Count 6.5 X10*3/uL (4.8-10.8)
[2025-04-21] MEDS: Butalb/Acetamin/Caff 50/325/40 TABLET 1 TAB PO (08:40)
[2025-04-21 08:41] LABS: Alanine Aminotransferase 126 U/L (0-40); Albumin Level 4.2 g/dL (3.5-5.0); Alkaline Phosphatase 139 U/L (39-117); Anion Gap 15 (12-20); Aspartate Amino Transferase 82 U/L (5-37); Blood Urea Nitrogen 14 mg/dL (9-16); Calcium 9.9 mg/dL (8.4-10.2); Carbon Dioxide 28 mmol/L (22-29); Chloride 101 mmol/L (96-108); Creatinine Clr Calc Pharmacy 76.1; Estimated Glomerular Filt Rate > 60; Lipase 19 U/L (8-78); Magnesium 2.1 mg/dL (1.6-2.6); Potassium 5.1 mmol/L (3.3-5.1); Sodium 139 mmol/L (135-145); Total Protein 7.6 g/dL (6.5-8.0)
--- NOTE | 2025-04-21 08:42 | PC.NURSE ---
Pt reiterating headache x 11 days with dizziness and nausea. Skin pwd. NAD. No photophobia. no neuro deficits.
[2025-04-21 08:52] LABS: Resp Syncy Virus RNA Qual PCR NEGATIVE (Negative); SARS COV2 PCR INHOUSE NEGATIVE (Negative)
== END 2025-04-21 10:27 | disposition home or self-care (01) ==
PROVIDERS: Emergency Provider Emergency Medicine; PCP Student in an Organized Health Care Education/Training Program
DX: R11.0 Nausea (principal); R51.9 Headache, unspecified; R42 Dizziness and giddiness; Z03.818 Encounter for observation for suspected exposure to other biological agents ruled out
CPT/HCPCS: 80053; 83690; 83735; 85025; 87637; 93005; 96372; 99284; 99285; J1885

== ENCOUNTER → 2025-04-21 07:45 | Outpatient (BNV) | payer OTHER, SELFPAY | PROVIDERS: Emergency Provider Emergency Medicine; PCP Student in an Organized Health Care Education/Training Program; Visit Provider Internal Medicine | DX: R42 Dizziness and giddiness (principal) | CPT/HCPCS: 93010 ==

== ENCOUNTER 2025-04-23 09:27 | Outpatient (REF) | payer OTHER, SELFPAY ==
[2025-04-26 02:43] LABS: Levetiracetam Keppra 2.5 mcg/mL (10.0-40.0)
== END 2025-04-23 09:28 | disposition home or self-care (01) ==
LOC: HO.HHCL 09:27
PROVIDERS: PCP Student in an Organized Health Care Education/Training Program; Referring Provider Pediatrics; Visit Provider Student in an Organized Health Care Education/Training Program
DX: G40.209 Localization-related (focal) (partial) symptomatic epilepsy and epileptic syndromes with complex partial seizures, not intractable, without status epilepticus (principal)
CPT/HCPCS: 36415; 80177

== ENCOUNTER 2025-04-26 08:41 | Outpatient (REF) | payer OTHER, SELFPAY ==
--- NOTE | ~2025-04-26 | FL_ITS ---
EXAMINATION: XR BARIUM SWALLOW CLINICAL INFORMATION: pt w reported mass sensation in neck-dysphagia COMPARISON: Previous exams most recent July 2022 TECHNIQUE: Barium swallow was performed using thin and thick barium and effervescent granules. Barium tablet was also administered. FINDINGS: The swallowing mechanism is normal. No aspiration, penetration or retention. Esophageal motility is normal. No mass, stricture, hernia or reflux is seen. Barium tablet passed freely into the stomach. Visualized stomach and duodenum are unremarkable. FLUOROSCOPY TIME: 1 minute 34 seconds DOSE AREA PRODUCT: 1014 uGy-m2 (microgray-meter squared) FL/FL barium swallow with air IMPRESSION: Unremarkable examination. Electronically signed by: Tanna Wiseman MD 04/26/2025 09:44 AM EST
== END 2025-04-26 08:42 | disposition home or self-care (01) ==
LOC: HO.XRAY 08:41
PROVIDERS: PCP Student in an Organized Health Care Education/Training Program; Visit Provider Student in an Organized Health Care Education/Training Program
DX: R13.10 Dysphagia, unspecified (principal)
CPT/HCPCS: 74221

== ENCOUNTER → 2025-04-26 08:42 | Outpatient (BNV) | payer OTHER, SELFPAY | PROVIDERS: PCP Student in an Organized Health Care Education/Training Program; Visit Provider Radiology Diagnostic Radiology | DX: I65.23 Occlusion and stenosis of bilateral carotid arteries (principal); R51.9 Headache, unspecified; R10.30 Lower abdominal pain, unspecified; R10.8A3 Suprapubic tenderness; R13.10 Dysphagia, unspecified; R91.8 Other nonspecific abnormal finding of lung field | CPT/HCPCS: 70496; 70498; 71046; 74176; 74221 ==

== ENCOUNTER 2025-04-26 09:19 | Inpatient (IN) | payer OTHER, SELFPAY ==
--- NOTE | ~2025-04-26 | CT_ITS ---
EXAMINATION: CTA NECK WITH CONTRAST (STROKE) CTA BRAIN WITH CONTRAST (STROKE) CLINICAL INFORMATION: [place] headache. COMPARISON: May 31, 2024. TECHNIQUE: CTA of the head and neck was performed in the axial plane from the mediastinum to the skull vertex using 70 mL Omnipaque 350 intravenous contrast. Additional reformatted multiplanar images including maximum intensity projection MIP images are generated on the CT workstation. This CT examination was performed using dose optimization techniques as appropriate, variously including the following: *Automated exposure control *Adjustment of mA and/or kV according to patient size (this includes techniques or standardized protocols for targeted exams where dose is matched to indication/reason for exam; i.e. extremities or head) *Use of iterative reconstruction technique DLP: 1532 mGy-cm FINDINGS: The degree of stenosis determined by criteria similar to NASCET. Brain: No acute intracranial hemorrhage, mass effect, midline shift, hydrocephalus or herniation. Salas-white matter differentiation is normal. Posterior cranial fossa contents demonstrated no acute hemorrhage or mass effect. Normal position of the cerebellar tonsils. Decreased AP diameter of the cranium. Calcified plaques in the cavernous supracavernous segments of the ICAs. Small retention cyst, right maxillary sinus. No air-fluid levels in the paranasal sinuses. Pneumatized anterior clinoid processes, bilaterally. Pneumatized dorsum sella. Pneumatized right petrous apex. Tympanic cavities and mastoid cells are aerated.. Chest CTA: Calcified plaque aortic arch. No aneurysm or dissection in the included aortic arch. Calcified plaque in the origin of the left subclavian artery. Neck CTA: Right CCA: Normal patency. No focal stenosis. No intimal flap. Small mixed plaque. Right ICA: Irregular shaped mixed plaque representing less than 40% stenosis. No intimal flap. Normal patency. Left CCA: Normal patency. No focal stenosis. No intimal flap. Left ICA: Irregular mixed plaque in the proximal segment representing less than 50% stenosis. No intimal flap. Normal patency. V1/V2 segments: Normal patency. No focal stenosis. No intimal flap. Codominant. Both origin from the subclavian arteries. Brain CTA: Anterior cerebral circulation: ICAs: Calcified plaques cavernous and supracavernous segments. Normal patency. No focal stenosis. No abrupt cut off. No gross vascular irregularity. Normal ICA terminus. MCA's: Normal patency. No focal stenosis. No abrupt cut off. Bifurcation/trifurcation demonstrated no vascular abnormality. ACAs: Normal patency. No focal stenosis. No abrupt cut off. Anterior, extending artery is patent without gross irregularity. Ophthalmic arteries are patent without gross abnormality at the origin. Posterior communicating arteries are small without gross vascular abnormality. Robust right posterior communicating artery. Posterior cerebral circulation: V3/V4 segments: Normal patency. No focal stenosis. No intimal flap. Posterior inferior cerebellar arteries are patent without gross vascular irregularity at the origin. Basilar artery is patent without focal stenosis or intimal flap. Normal basilar artery tip abnormality. Superior cerebellar arteries are patent without gross vascular irregularity. mannequin mounter: Normal patency. No focal stenosis. No abrupt cut off. Ancillary findings: No main cerebral venous sinus thrombosis. Irregular shaped peribronchial septal thickening with attenuation abnormalities and patchy groundglass involving the right upper lung lobe extending from the superior aspect of the right perihilar region. Mild cervical spondylosis. CT/CT angio head neck IMPRESSION: No acute intracranial hemorrhage or acute brain abnormality by CT. No main cerebral artery occlusion or embolus. Irregular shaped mixed plaques both ICAs representing less than 50% stenosis. No dissection. No gross aneurysm, cerebral arteries. Acute airspace disease, right upper lung lobe. Superimposed neoplasm cannot be excluded. This critical test result is communicated via text tiger connect to: emergency physician Dr. Bowen Yoo on April 26, 2025 at 12:59 PM Electronically signed by: Blu Farrell MD 04/26/2025 01:01 PM [facility]
--- NOTE | ~2025-04-26 | CT_ITS ---
EXAMINATION: CT ABDOMEN AND PELVIS WITHOUT CONTRAST CLINICAL INFORMATION: Suprapubic tenderness, mid to lower abdominal pain. 64-year-old male. COMPARISON: 09/29/2023. TECHNIQUE: Multidetector volumetric imaging was performed from the superior aspect of the liver through the pubic symphysis. Sagittal and coronal reformatted images were obtained on the technologist's workstation. This CT examination was performed using dose optimization techniques as appropriate, variously including the following: *Automated exposure control *Adjustment of mA and/or kV according to patient size (this includes techniques or standardized protocols for targeted exams where dose is matched to indication/reason for exam; i.e. extremities or head) *Use of iterative reconstruction technique FINDINGS: Study is extremely limited, as there is extensive streak artifact from dense barium residing in the small bowel and colon from earlier barium contrast upper GI examination. Study is also limited due to lack of IV contrast. This severely limits the sensitivity of the study. LUNG BASES: Refer to the dedicated CT chest performed concurrently. LIVER, GALLBLADDER, AND BILIARY TREE: The unenhanced liver is normal in size, shape, and attenuation. Limited evaluation of the inferior right lobe. No focal hepatic lesion or biliary ductal dilatation is present. The gallbladder is unremarkable with no evidence of radiopaque gallstones, gallbladder wall thickening, or obvious pericholecystic inflammatory changes. PANCREAS: Partially obscured by streak artifact, most notably the head and uncinate process. Grossly normal. SPLEEN: Normal. ADRENAL GLANDS: Normal. KIDNEYS AND URETERS: The right kidney is partially obscured by streak artifact. The left kidney likely is mildly obscured by streak artifact. Grossly the kidneys appear normal. No definite hydronephrosis. Ureters are poorly seen proximally. BLADDER: Normal in appearance. GASTROINTESTINAL TRACT: The imaged small bowel and large bowel that can be evaluated appear normal. The ascending colon, small bowel in the right abdomen, and descending colon are essentially near completely obscured by streak artifact from dense contrast. No gross GI abnormality is appreciated. The appendix is normal. ABDOMINAL WALL: No significant hernia is appreciated. LYMPH NODES: Within the confines of streak artifact, no gross abnormal lymphadenopathy is visualized. VASCULAR: The mid aorta is largely obscured. There is mild atheromatous calcification. There is no aneurysm. PELVIC VISCERA: The prostate and seminal vesicles are unremarkable. OSSEOUS STRUCTURES: No suspicious lytic or blastic bone lesion evident. No acute findings. CT/CT abdomen pelvis wo IV con IMPRESSION: 1. Very limited exam secondary to streak artifact from dense barium contrast in the small bowel and colon as discussed above. Within these confines, no acute findings in the abdomen or pelvis. Electronically signed by: Osmin Lainez MD 04/26/2025 01:17 PM [facility] [place]
--- NOTE | ~2025-04-26 | XR_ITS ---
EXAMINATION: XR CHEST CLINICAL INFORMATION: RUL infiltrate vs Mass , sepsis COMPARISON: December 14, 2023 TECHNIQUE: PA and lateral views. FINDINGS: Ill-defined patchy opacity right upper hemithorax extending from the superior right perihilar region. Probable bronchiectasis. No pleural effusion or pneumothorax. Heart silhouette size is normal. Residual contrast in the large intestine. Mild multilevel spondylosis. XR/XR chest 2V IMPRESSION: Airspace disease, right upper lung lobe. Malignancy cannot be excluded. Electronically signed by: Blu Farrell MD 04/26/2025 01:37 PM EST RP
[2025-04-26 09:40] VITALS: BP 131/69; PULSE 107; RESP 18; TEMP 37.7; O2SAT 97; BMI 26.6
--- NOTE | 2025-04-26 09:44 | ED.GENADULT ---
HPI - General Adult General Chief complaint: Headache Stated complaint: Headache Neck Pain No Injury Time Seen by Provider: 04/26/25 10:58 History of Present Illness ED Provider: alla MINOR narrative: Date & Time: 2025-04-26 Patient Name: : N: Author / Clinician: Bowen Heaton MD Chief Complaint Neck pain and persistent headache. History of Present Illness The patient presents with 16 days of constant occipital headache accompanied by posterior neck pain and stiffness. Headache onset was sudden without clear inciting factors and has persisted throughout the day since onset. Acetaminophen provides only mild, temporary relief. The patient reports that light bothers them and intermittent sensations of feeling warm with profuse night sweats that soak the bed, which is unusual for them. They deny measured fevers and deny cough. Concurrently, the patient notes subjective weakness of the left side of the body that began at the same time as the headache and has been persistent. No focal neurologic deficits were appreciated on today?s exam. The patient also has longstanding lower mid-abdominal pain present for years, non-radiating to the back, which is currently bothersome. Oral intake has been poor today. Past evaluation includes a brain MRI performed this past summer for prior headaches. Current medications include aspirin, famotidine, ezetimibe, atorvastatin, icosapent ethyl (Vascepa), levetiracetam (Keppra), topiramate, fluoxetine, finasteride, and terazosin. History of seizures (on Keppra and topiramate) acknowledged. No history of diabetes, hypertension, cardiac disease, stroke, or tuberculosis. Reports history of drug use. Reports chronic dizziness. Review of Systems - Constitutional: Reports feeling warm; night sweats. Denies documented fever. - Head & Eyes: Occipital headache; reports that light bothers them. - Neck: Pain and stiffness. - Respiratory: Denies cough. - Cardiovascular: Denies hypertension or other cardiac disease. - Gastrointestinal: Chronic lower mid-abdominal pain; decreased oral intake today. Denies radiation of pain to the back. - Neurologic: Reports left-sided weakness; longstanding seizures. Denies history of stroke; reports chronic dizziness. Physical Examination Vital Signs: Physical Exam: - General: Alert and cooperative; mild dry oral mucosa. - Head/Eyes: Pupils 2?3 mm, equal, round, reactive to light; photophobia reported; no nystagmus. - Neck: Supple. - Neurologic: Cranial nerves grossly intact. Upper extremity strength 5/5 bilaterally; lower extremity strength 5/5 bilaterally; no ataxia. - Abdomen: Mild suprapubic tenderness; no distension. Emergency Department Course IV fluids initiated for hydration. Further diagnostic testing planned (details pending at this time). Assessment & Plan Diagnosis: 1. Persistent occipital headache with associated neck pain 2. Light sensitivity (reports that light bothers them) 3. Subjective left-sided weakness (objective motor strength intact on exam) 4. Chronic lower abdominal pain Plan: - Continue IV fluid hydration. - Obtain indicated diagnostic studies (laboratory tests and imaging) per ED protocol ? results pending. - Symptomatic management of pain as needed. Disposition Patient remains in the Emergency Department; final disposition pending completion of work-up. Related Data Home Medications ?Medication ?Instructions ?Recorded ?Confirmed aspirin 81 mg tablet,delayed 81 mg PO QAM 12/08/20 09/17/24 release atorvastatin 80 mg tablet 80 mg PO BEDTIME 12/08/20 09/17/24 nitroglycerin 0.4 mg sublingual 0 mg sublingual 08/16/22 09/17/24 tablet fluoxetine 40 mg capsule 80 mg PO DAILY 12/20/22 09/17/24 primidone 50 mg tablet 50 mg PO BEDTIME 08/03/23 09/17/24 topiramate 25 mg capsule,extended 25 mg PO DAILY 08/03/23 09/17/24 release 24 hr multivitamin-ferrous tab PO 05/07/24 09/17/24 fumarate-folic acid 18 mg-400 mcg tablet (Certavite-Antioxidant) icosapent ethyl 1 gram capsule g PO 09/17/24 09/17/24 (Vascepa) Previous Rx's ?Medication ?Instructions ?Recorded linaclotide 290 mcg capsule 290 mcg PO QAM #30 caps 05/21/24 (Linzess) famotidine 40 mg tablet 40 mg PO BEDTIME #90 tabs 07/05/24 docusate sodium 100 mg capsule 100 mg PO BEDTIME #90 caps 08/15/24 ezetimibe 10 mg tablet 10 mg PO DAILY #90 tabs 10/29/24 terazosin 5 mg capsule 5 mg PO BEDTIME 90 days #90 caps 12/10/24 dicyclomine 10 mg capsule 10 mg PO BID PRN for abdominal 01/17/25 pain #60 caps levetiracetam 500 mg tablet 500 mg PO BID #180 tabs 01/30/25 topiramate 25 mg tablet 25 mg PO .COMPLEX #90 tabs 01/30/25 finasteride 5 mg tablet 5 mg PO DAILY 90 days #90 tabs 03/18/25 prednisone 20 mg tablet 20 mg PO DAILY 5 days #5 tabs 03/18/25 sulfamethoxazole 800 1 tab PO BID 14 days #28 tabs 03/18/25 mg-trimethoprim 160 mg tablet (Bactrim DS) Allergies Allergy/AdvReac Type Severity Reaction Status Date / Time No Known Allergies Allergy Verified 04/26/25 09:42 [facility] Past Medical History Medical History TIA (transient ischemic attack) Complex partial seizures Migraine Hand pain Tremor MCI (mild cognitive impairment) CAD (coronary artery disease) Surgical History Hx of colonoscopy History of esophagogastroduodenoscopy (EGD) Family History Family History Father Cancer Throat cancer Mother Cancer Sister FH: kidney cancer Breast cancer Social History Social History Alcohol intake: never Patient Tobacco Use Status: Never used Tobacco Smoked in Last 30 Days: No Use of substances other than those prescribed or required for medical reasons: No Advance Directives: Yes Advance Directives on File: Yes Advance Directives Date on File: 02/25/21 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 Gender identity: Male Physical Exam ED Exam Exam: EXAM: Gen: Alert, awake, well appearing, well hydrated. Appears mildly unwell but not ill or toxic or distressed Abdominal: No focal tenderness. Soft, no objective distension. No palpable masses or obvious organomegaly. ?No guarding, no rebound tenderness or other peritoneal findings. Vital signs: See flowsheet Vital Signs: Vital Signs - 24 hr 04/26/25 09:40 04/26/25 11:43 Temperature 99.9 F 102.0 F H Pulse Rate 107 H 95 Respiratory Rate 18 18 Blood Pressure 131/69 131/75 Pulse Oximetry 97 92 Oxygen Delivery Method Room Air Room Air BMI result Body Mass Index 26.6 Course Course Course Narrative: Rapid medical examination performed in triage by Jyoti Miller PA-C: Patient is a 64 year old assigned male at presenting to the emergency department with headache, nausea, abdominal pain, and neck pain. Patient states for the last 16 days he has felt unwell with nausea, abdominal pain, headache, and neck pain. Patient states that he was seen here before for this but it has not improved. Detailed physical exam and review of systems are deferred to the emergency department clinician. Labs ordered. Patient placed back in the waiting room pending room availability and results. Medications Administered Discontinued Medications Generic Name Dose Route Start Last Admin Trade Name Freq PRN Reason Stop Dose Admin Acetaminophen 975 mg 04/26/25 13:09 04/26/25 14:36 Acetaminophen 325 Mg Tablet PO 04/26/25 13:10 975 mg ONCE ONE Administration Dexamethasone Sodium Phosphate 10 mg 04/26/25 11:11 04/26/25 11:38 Dexamethasone Sod Phosphate 10 Mg/Ml Vial IVPUSH 04/26/25 11:12 10 mg ONCE ONE Administration Acetaminophen 1,000 mg in 100 mls @ 400 mls/hr 04/26/25 11:11 04/26/25 12:11 Ofirmev IV 04/26/25 11:25 Infused ONCE ONE Infusion Lactated Ringer's 1,000 mls @ 999 mls/hr 04/26/25 11:15 04/26/25 12:40 Lr IV 04/26/25 12:15 Infused .Q1H1M SHELBI Infusion Ceftriaxone Sodium 2 gm/ 50 mls @ 100 mls/hr 04/26/25 13:02 04/26/25 14:31 Sodium Chloride IV 04/26/25 13:31 100 mls/hr ONCE ONE Administration Sodium Chloride 1,000 mls @ 999 mls/hr 04/26/25 13:15 04/26/25 14:40 Ns IV 04/26/25 14:15 999 mls/hr .Q1H1M SHELBI Administration Azithromycin 500 mg/ Sodium 250 mls @ 125 mls/hr 04/26/25 14:06 04/26/25 14:36 Chloride IV 04/26/25 16:05 125 mls/hr ONCE ONE Administration Iohexol 100 ml 04/26/25 12:26 04/26/25 12:26 Iohexol 350 Mg/Ml 100 Ml Infus..Btl IV 04/26/25 12:27 70 ml ONCE ONE Administration Metoclopramide HCl 10 mg 04/26/25 11:11 04/26/25 11:38 Metoclopramide Hcl 10 Mg/2 Ml Vial IVPUSH 04/26/25 11:12 10 mg ONCE ONE Administration Procedures Procedure Narrative Procedure Narrative: PROCEDURE NOTE Procedure: Lumbar Puncture Performed by: Bowen Heaton MD Indication: Headache and fever [place] Protocol: a time out was performed and the correct patient was verified ? The patient was placed in lateral recumbent position and was prepped and draped in proper sterile fashion. The spinous process interspace at the level of the superior iliac spine was anesthetized with 5 ml of 1% lidocaine.? A when he gauge spinal needle was used to obtain 6? milliliters of fluid. The opening pressure was not obtained. The fluid appeared clear and was sent to the lab for appropriate studies. The patient tolerated the procedure well without difficulty or complication. ? Post-Procedure Diagnosis: same as indication Complications: none Estimated Blood Loss:? minimal Specimens Removed: as documented above Prosthetic devices/implants: no Cardiology Manager(s): none Medical Decision Making Medical Decision Making MDM Narrative: Around 1145 the patient has spiked a fever in the ED. I was notified of this around 13:00 ordered lactate blood culture antibiotics additional fluids. Around this time the radiologist informed me there is mass versus infiltrate in the right upper lobe seen on the neck imaging. No aneurysm ICH or stroke. We will cover for sepsis treat with antipyretics fluids and a bit __ LP was performed uneventfully with clear fluid date sent to the lab. Case was endorsed to medical hospitalist for fever sepsis criteria no lactate elevation or hypotension. 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 The patient's headache improved after fluid Reglan and other medications Lab Data 04/26/25 09:54 04/26/25 09:54 Labs: Lab Results 04/26/25 04/26/25 Range/Units 09:54 13:58 WBC 8.9 (4.8-10.8) X10*3/uL RBC 4.74 (4.60-5.80) X10*6/uL Hgb 12.9 L (14.0-18.0) g/dl Hct 40.1 L (42.0-52.0) % MCV 84.6 (80.0-98.0) fL MCH 27.2 (27.0-33.0) pg MCHC 32.2 (31.0-36.0) g/dl RDW 13.1 (11.0-16.0) % Plt Count 386 D (160-400) X10*3/uL MPV 8.6 L (9.4-12.4) fL Immature Gran % (Auto) 0.7 H (0.0-0.4) % Neut % (Auto) 77.8 H (45-73) % Lymph % (Auto) 13.3 L (20-40) % [place] % (Auto) 7.5 (2-11) % Eos % (Auto) 0.4 (0-4) % Baso % (Auto) 0.3 (0-2) % Lymph # (Auto) 1.2 (1.2-4.9) X10*3/uL [place] # (Auto) 0.7 (0.1-1.2) X10*3/uL Eos # (Auto) 0.0 (0.0-0.4) X10*3/uL Baso # (Auto) 0.0 (0.0-0.2) X10*3/uL Abs Immat Gran (auto) 0.06 H (0.00-0.03) X10*3/uL Absolute Neuts (auto) 6.9 (2.0-8.3) x10*3/uL Absolute Nucleated RBC 0.000 (0.0-0.012) X10*3/uL Nucleated RBC % (auto) 0.0 (0.0-0.2) /100WBC Sodium 139 (135-145) mmol/L Potassium 4.4 (3.3-5.1) mmol/L Chloride 103 (96-108) mmol/L Carbon Dioxide 29 (22-29) mmol/L Anion Gap 11 L (12-20) BUN 14 (9-16) mg/dL Creatinine 0.95 (0.5-1.4) mg/dL Estim Creat Clear Calc 81.1 Estimated GFR > 60 Random Glucose 114 (60-115) mg/dL Lactic Acid 0.6 (0.5-2.0) mmol/L Calcium 9.9 (8.4-10.2) mg/dL Magnesium 2.2 (1.6-2.6) mg/dL Total Bilirubin 0.5 (0.0-1.0) mg/dL AST 44 H (5-37) U/L ALT 142 H (0-40) U/L Alkaline Phosphatase 190 H (39-117) U/L Total Protein 7.9 (6.5-8.0) g/dL Albumin 4.1 (3.5-5.0) g/dL Lipase 17 (8-78) U/L Procalcitonin 0.10 ng/mL Urine Color Yellow Urine Appearance Clear Urine pH 7.5 (5.0-9.0) Ur Specific [place] 1.025 (1.005-1.025) Urine Protein 100 (2+) H (Neg-Trace) mg/dL Urine Glucose (UA) Negative (Negative) mg/dL Urine Ketones Negative (Negative) mg/dL Urine Blood Negative (Negative) Urine Nitrite Negative (Negative) Ur Leukocyte Esterase Negative (Negative) Urine RBC 0-2 (0-2) /HPF Urine WBC 0-5 (0-5) /HPF Ur Squamous Epith Cells 0-2 (0-2) /HPF Urine Bacteria Trace (None Seen) Hyaline Casts 0-2 (0-2) /LPF Influenza Type A (PCR) NEGATIVE (Negative) Influenza Type B (PCR) NEGATIVE (Negative) RSV RNA Qual (PCR) NEGATIVE (Negative) SARS-CoV-2 RNA (RT-PCR) NEGATIVE (Negative) Discharge Plan Discharge Clinical Impression: Headache Patient Disposition: Home, Self-Care
[2025-04-26 09:59] LABS: MANUAL DIFF FLAG NO
[2025-04-26 10:04] LABS: Hematocrit 40.1 % (42.0-52.0); Hemoglobin 12.9 g/dl (14.0-18.0); Imm Gran Abs Auto 0.06 X10*3/uL (0.00-0.03); Imm Gran Pct Auto 0.7 % (0.0-0.4); Lymphocytes Absolute Auto 1.2 X10*3/uL (1.2-4.9); Mean Corpuscular HGB Conc 32.2 g/dl (31.0-36.0); Mean Corpuscular Hemoglobin 27.2 pg (27.0-33.0); Mean Corpuscular Volume 84.6 fL (80.0-98.0); NRBC Abs Auto 0.000 X10*3/uL (0.0-0.012); NRBC Pct Auto 0.0 /100WBC (0.0-0.2); Platelet Count 386 X10*3/uL (160-400); Red Blood Count 4.74 X10*6/uL (4.60-5.80); White Blood Count 8.9 X10*3/uL (4.8-10.8)
[2025-04-26 10:08] LABS: Appearance Urine Clear; Glucose Urine UA Negative (Negative); PH 7.5 (5.0-9.0); Specific Gravity - Urine 1.025 (1.005-1.025); UMIC TRIGGER UACC YES
[2025-04-26 10:21] LABS: Alanine Aminotransferase 142 U/L (0-40); Albumin Level 4.1 g/dL (3.5-5.0); Alkaline Phosphatase 190 U/L (39-117); Anion Gap 11 (12-20); Aspartate Amino Transferase 44 U/L (5-37); Blood Urea Nitrogen 14 mg/dL (9-16); Calcium 9.9 mg/dL (8.4-10.2); Carbon Dioxide 29 mmol/L (22-29); Chloride 103 mmol/L (96-108); Creatinine Clr Calc Pharmacy 81.1; Estimated Glomerular Filt Rate > 60; Lipase 17 U/L (8-78); Magnesium 2.2 mg/dL (1.6-2.6); Potassium 4.4 mmol/L (3.3-5.1); Sodium 139 mmol/L (135-145); Total Protein 7.9 g/dL (6.5-8.0)
[2025-04-26 10:37] LABS: Resp Syncy Virus RNA Qual PCR NEGATIVE (Negative); SARS COV2 PCR INHOUSE NEGATIVE (Negative)
[2025-04-26] MEDS: Lactated Ringers 1,000 ML 999 ML IV (11:38)
[2025-04-26 11:43] VITALS: BP 131/75; PULSE 95; RESP 18; TEMP 38.9; O2SAT 92
[2025-04-26] MEDS: iohexoL 350 MG/ML 100 ML INFUS..BTL IV (12:26)
[2025-04-26 14:44] LABS: Procalcitonin 0.10 ng/mL
[2025-04-26 15:13] VITALS: BP 128/70; PULSE 74; RESP 20; TEMP 36.8; O2SAT 99
--- NOTE | 2025-04-26 16:36 | P.HPHOSP_ITS ---
History of Present Illness Date of Service: 04/26/25 Chief Complaint: Headache The patient is a 64-year-old male, with a background history of complex partial seizures, bitemporal headaches/migraines, BPH, history of pancreatitis, CAD, HTN, HLD, presenting to hospital with complaints of headache for the past 16 days, and fevers. PRESENTATION Headache For the past 16 days, the patient has been describing a headache that has been developing in the right occipital region and the right side of his neck He reports the pain is a sharp stabbing like pain that occurs intermittently with head movement starting from the right occiput and right neck with radiation to the left occiput and right temporoparietal region with activity and movement of the head and neck. The patient has associated bilateral blurry vision as well as wincing and grimacing when he gets this pain. The pain lasts intensely for a couple of sec, then begins to improve gradually for the next few minutes. The patient denies any new paresthesias, slurred speech, weakness, persistent blurry vision. Patient denies any new rashes, ecchymosis. The headache is nonpositional, and is not worse when lying down flat. Fever/ cough Patient reports suffering with a fever over the past few days only. Reports that the fever is described as a warm feeling, occurring sparingly over the past week. He has not experienced fevers the week prior The patient does endorse an intermittent cough, with production of purulent sputum, yellow/green in color, worsening over the past few days. He denies any URI symptoms such as runny nose, sneezing. He denies sick contacts Back pain & tylenol use Of note, the patient reports recently finding a ?log of wood . He has been fasting this into a table, and building it himself. He has been using a hand saw to build it. The patient is right-handed dominant. Does endorse some new back pain He presented to the emergency department recently on Tuesday due to the headache, and received Tylenol, with some improvement The patient reports taking Tylenol multiple times on a daily basis for the past 2 weeks. ED COURSE Presenting Complaint: * 16 days of constant occipital headache, posterior neck pain/stiffness, photophobia, subjective left-sided weakness, and chronic lower abdominal pain. * Reports night sweats, intermittent subjective fevers, poor oral intake, and no cough. Initial Assessment: * Vitals: Febrile to 102?F in ED, tachycardic (HR 107), normotensive, O2 sat 92?99% on room air. * Exam: Alert, mild dry mucosa, photophobia, neck supple, no focal neurologic deficits, mild suprapubic tenderness. * Past medical history notable for seizures, migraine, TIA, CAD, and mild cognitive impairment. Workup: * Labs:?WNL WBC with neutrophilia and lymphopenia, mild anemia, mild transaminitis, normal lactate, low procalcitonin, unremarkable urinalysis except for 2+ protein. * Imaging: * CT Angio Head/Neck:?No acute intracranial process; new right upper lobe (RUL) airspace disease (infiltrate vs. mass). * Chest X-ray:?Patchy RUL opacity, probable bronchiectasis, no effusion. * CT Abd/Pelvis:?Limited by artifact, no acute findings. * LP performed:?Clear, colorless CSF; glucose 63 mg/dL, protein 31.8 mg/dL (within normal limits); opening pressure not obtained. ED Interventions: * IV fluids for hydration. * Empiric antibiotics: Ceftriaxone and azithromycin initiated for suspected pulmonary source of sepsis. * Antipyretics and symptomatic management (acetaminophen, metoclopramide, dexamethasone). * Blood cultures and additional labs sent. Review of Systems 2 Review of Systems: Yes all other systems are reviewed and are negative [facility] Medical History TIA (transient ischemic attack) Complex partial seizures Migraine Hand pain Tremor MCI (mild cognitive impairment) CAD (coronary artery disease) Family History Father Cancer Throat cancer Mother Cancer Sister FH: kidney cancer Breast cancer Surgical History Hx of colonoscopy History of esophagogastroduodenoscopy (EGD) Social History Alcohol intake: never Patient Tobacco Use Status: Never used Tobacco Smoked in Last 30 Days: No Use of substances other than those prescribed or required for medical reasons: No Advance Directives: Yes Advance Directives on File: Yes Advance Directives Date on File: 02/25/21 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 Gender identity: Male Meds Allergies Allergy/AdvReac Type Severity Reaction Status Date / Time No Known Allergies Allergy Verified 04/26/25 09:42 Home Medications ?Medication ?Instructions ?Recorded ?Confirmed ?Last Taken ?Type aspirin 81 mg tablet,delayed 81 mg PO QAM 12/08/2010/0705/20/21 History release atorvastatin 80 mg tablet 80 mg PO BEDTIME 12/08/20 Unknown History nitroglycerin 0.4 mg sublingual 0 mg sublingual 09/17/24 Unknown History tablet fluoxetine 40 mg capsule 80 mg PO DAILY 12/20/2210/07 Unknown History primidone 50 mg tablet 50 mg PO BEDTIME 08/03/23 Unknown History topiramate 25 mg capsule,extended 25 mg PO DAILY 08/0209/17/24 Unknown History release 24 hr multivitamin-ferrous tab PO 05/07/24 09/17/24 Unk nown History fumarate-folic acid 18 mg-400 mcg tablet (Certavite-Antioxidant) icosapent ethyl 1 gram capsule g PO 09/17/24 09/17/24 Unknown History (Vascepa) Physical Exam 2 Vital Signs and Narrative: Vital Signs: Last Vital Signs Temp 98.3 F 04/26/25 15:13 Pulse 74 04/26/25 15:13 Resp 20 04/26/25 15:13 BP 128/70 04/26/25 15:13 Pulse Ox 99 04/26/25 15:13 O2 Del Method Room Air 04/26/25 15:13 BMI result Body Mass Index 26.6 General: A&O x3, oriented to time place person and situation, comfortable, no pain HEENT: +ve [place]pike bilaterally Cardiac: S1, S2 auscultated with no S3/4, no MRG. Well perfused. Respiratory: Right upper lobe crepitations auscultated, without respiratory distress. Otherwise vesicular breath sounds throughout all lung zones, without accessory muscle use, no peripheral or central cyanosis. GI/ : No abdominal pain on palpation, no masses or distentions. MSK: Normal ambulation without pain at bony prominences or musculature. Direct tenderness to palpation of the right paracervical support musculature/ trapezius and lower back Neurological: Normal neurological examination on overview, without obvious CN II-XII abnormalities. -ve Brudzinski & Kernig sign. Results Labs 04/26/25 09:54 04/26/25 09:54 Labs: Laboratory Results - last 24 hr 04/26/25 04/26/25 04/26/25 09:54 13:58 15:27 MCV 84.6 MCH 27.2 MCHC 32.2 RDW 13.1 Plt Count 386 D MPV 8.6 L Immature Gran % (Auto) 0.7 H Neut % (Auto) 77.8 H Lymph % (Auto) 13.3 L Hardin % (Auto) 7.5 Eos % (Auto) 0.4 Baso % (Auto) 0.3 Lymph # (Auto) 1.2 Hardin # (Auto) 0.7 Eos # (Auto) 0.0 Baso # (Auto) 0.0 Abs Immat Gran (auto) 0.06 H Absolute Neuts (auto) 6.9 Absolute Nucleated RBC 0.000 Nucleated RBC % (auto) 0.0 Anion Gap 11 L Estim Creat Clear Calc 81.1 Estimated GFR > 60 Random Glucose 114 Lactic Acid 0.6 Calcium 9.9 Magnesium 2.2 Total Bilirubin 0.5 AST 44 H ALT 142 H Alkaline Phosphatase 190 H Total Protein 7.9 Albumin 4.1 Lipase 17 Procalcitonin 0.10 Urine Color Yellow Urine Appearance Clear Urine pH 7.5 Ur Specific [place] 1.025 Urine Protein 100 (2+) H Urine Glucose (UA) Negative Urine Ketones Negative Urine Blood Negative Urine Nitrite Negative Ur Leukocyte Esterase Negative Urine RBC 0-2 Urine WBC 0-5 Ur Squamous Epith Cells 0-2 Urine Bacteria Trace Hyaline Casts 0-2 CSF Tube Number 2 CSF Appearance (b) Clear, Colorless CSF Glucose 63 CSF Total Protein 31.8 Influenza Type A (PCR) NEGATIVE Influenza Type B (PCR) NEGATIVE RSV RNA Qual (PCR) NEGATIVE SARS-CoV-2 RNA (RT-PCR) NEGATIVE Imaging Radiologist's Impressions: Impressions Abdomen/Pelvis CT 04/26/25 12:14 IMPRESSION: 1. Very limited exam secondary to streak artifact from dense barium contrast in the small bowel and colon as discussed above. Within these confines, no acute findings in the abdomen or pelvis. Electronically signed by: Osmin Lainez MD 04/26/2025 01:17 PM EST RP Head/Neck CTA 04/26/25 12:20 IMPRESSION: No acute intracranial hemorrhage or acute brain abnormality by CT. No main cerebral artery occlusion or embolus. Irregular shaped mixed plaques both ICAs representing less than 50% stenosis. No dissection. No gross aneurysm, cerebral arteries. Acute airspace disease, right upper lung lobe. Superimposed neoplasm cannot be excluded. This critical test result is communicated via text tiger connect to: emergency physician Dr. Bowen Yoo on April 26, 2025 at 12:59 PM Electronically signed by: Blu Farrell MD 04/26/2025 01:01 PM EST RP Chest X-Ray 04/26/25 13:26 IMPRESSION: Airspace disease, right upper lung lobe. Malignancy cannot be excluded. Electronically signed by: Blu Farrell MD 04/26/2025 01:37 PM EST RP Assessment and Plan (1) CAD (coronary artery disease): Qualifiers: Coronary Disease-Associated Artery/Lesion type: sycuan artery Hughes vs. transplanted heart: sycuan heart Associated angina: without angina Q ualified Code(s): I25.10 - Atherosclerotic heart disease of sycuan coronary artery without angina pectoris Status: Acute (2) Left lower quadrant abdominal pain: Status: Acute (3) CAP (community acquired pneumonia): Qualifiers: Laterality: right Lung location: upper lobe of lung Qualified Code(s): J18.9 - Pneumonia, unspecified organism Status: Acute (4) Sepsis: Qualifiers: Sepsis type: sepsis due to unspecified organism Sepsis acute organ dysfunction status: without acute organ dysfunction Qualified Code(s): A41.9 - Sepsis, unspecified organism Status: Acute (5) Benign paroxysmal positional vertigo, bilateral: Status: Acute (6) Transaminitis: Status: Acute (7) Drug-induced hepatitis: Status: Acute (8) Complex partial seizures: Status: Acute (9) Migraine: Qualifiers: Migraine type: migraine (< 15 days per month) without aura Status migrainosus presence: without status migrainosus Intractability: not intractable Qualified Code(s): G43.009 - Migraine without aura, not intractable, without status migrainosus Status: Acute (10) Muscle spasm: Status: Acute Plan 64-year-old male with history of CAD, complex partial seizures, migraines, and recent excessive acetaminophen use, presenting with 16 days of occipital headache, neck pain, photophobia, subjective left-sided weakness, and new fever; found to have right upper lobe community-acquired pneumonia with sepsis, transaminitis likely secondary to acetaminophen overuse, and bilateral BPPV, now admitted for further management. 1. Community-Acquired Pneumonia (Right Upper Lobe) with Sepsis Clinical Course: Presented with fever (Tmax 102?F), cough with purulent sputum, and right upper lobe infiltrate on imaging. Met SIRS criteria with tachycardia and fever. No hypotension or lactic acidosis. Started on empiric ceftriaxone and azithromycin in ED. Blood cultures and labs sent. No evidence of acute respiratory distress or hypoxemia. Plan: * Continue IV ceftriaxone and azithromycin (reassess based on culture results and clinical response) * Monitor for clinical improvement: daily vitals, O2 saturation, respiratory status * Encourage incentive spirometry, early mobilization * Monitor for complications: respiratory failure, empyema, sepsis progression * Repeat chest imaging if no improvement or clinical deterioration * De-escalate antibiotics per sensitivities and clinical course * Monitor for signs of malignancy given radiology concern (consider outpatient follow-up with pulmonology and possible CT chest after acute illness) 2. Sepsis (without acute organ dysfunction) Clinical Course: Met sepsis criteria (fever, tachycardia, leukocytosis with neutrophilia, source identified as pneumonia). No hypotension, normal lactate, no end-organ dysfunction. Plan: * Continue IV fluids to maintain euvolemia * Monitor for hypotension, urine output, mental status changes * Serial lactate if clinical status changes * Daily labs: CBC, CMP, LFTs * Blood cultures pending; adjust antibiotics as indicated 3. Benign Paroxysmal Positional Vertigo (BPPV), Bilateral Clinical Course: Positive [place]pike bilaterally, chronic dizziness, no acute focal neurologic deficits. Plan: * Start meclizine 25 mg PO TID as needed for vertigo * Encourage vestibular rehabilitation maneuvers (Dustin, Ferro-Daroff) as tolerated * Fall precautions * Monitor for worsening symptoms or new neurologic deficits 4. Drug-Induced Hepatitis (Transaminitis, likely acetaminophen-related) Clinical Course: Markedly elevated AST/ALT (AST 44, ALT 142, Alk Phos 190), history of excessive acetaminophen use for muscle pain/headache. No jaundice or hepatic encephalopathy. No evidence of acute liver failure. Plan: * Discontinue all acetaminophen and hepatotoxic agents * Monitor LFTs daily * Supportive care: maintain hydration, avoid further liver insults * Consider N-acetylcysteine if concern for ongoing toxicity or rising LFTs * Monitor for signs of hepatic decompensation (coagulopathy, encephalopathy) * [employer] patient on acetaminophen toxicity 5. Muscle Spasm with Occipital Migraine (likely secondary to increased physical activity/chopping wood) Clinical Course: Occipital headache and neck pain, worsened with movement, associated with muscle tenderness and spasm. History of migraines, but current episode likely exacerbated by recent physical activity. Plan: * Symptomatic management: cyclobenzaprine 5mg TID PO, ibuprofen 600mg TID PO * Avoid acetaminophen * Continue migraine prophylaxis (topiramate) and abortive therapy as needed (avoid triptans if CAD) * Physical therapy consult for neck and back muscle spasm * Apply heat/ice, gentle stretching * Monitor for improvement 6. Complex Partial Seizures, Migraine, and Other Chronic Conditions Clinical Course: No acute seizure activity during admission. On levetiracetam and topiramate. Migraine history, currently with occipital headache. Plan: * Continue home antiepileptic regimen * Monitor for seizure activity * Neurology consult if new symptoms or breakthrough seizures * Continue migraine management as above 7. Mild Cognitive Impairment, CAD, BPH, TIA, HLD Clinical Course: No acute events during this admission. Continue home medications as appropriate, monitor for delirium. Plan: * Continue home medications (hold statins if LFTs remain elevated) * Monitor for delirium/confusion * Address BPH symptoms as needed 8. Awaiting CSF/LP Results Clinical Course: LP performed for concern of FITTER TYPE BAR AND SEGMENT infection; CSF clear, normal glucose/protein, no pleocytosis. Awaiting final cultures and viral studies. Plan: * Monitor for new neurologic symptoms * Review CSF results when available * Discontinue empiric FITTER TYPE BAR AND SEGMENT infection coverage if all studies negative and no clinical concern QUALITY [employer] * VTE Prophylaxis: Enoxaparin 40 mg OD SQ * CODE STATUS: Full code * DIET: Regular Quality Stroke Does the patient have a stroke diagnosis?: No VTE Prior VTE?: No VTE Risk Level:: Medical - moderate - high VTE Device Contraindication: Treatment Not Indicated VTE Drug Contraindication: N/A - Med Ordered
--- NOTE | 2025-04-26 17:26 | PHA.MEDREC ---
Pharmacy Consult ? Medication Reconciliation Pharmacy has completed the medication reconciliation. Spoke with pt and family at bedside to confirm medications. Pt present list from [facility] and [facility], and answered questions on medications recently filled but not on the list.
[2025-04-26 17:39] LABS: Red Blood Cell CSF 1 MM*3; White Blood Cell CSF 1 MM*3
[2025-04-26 17:40] LABS: Lymphocytes CSF 100 %; Red Blood Cell CSF 1 MM*3; White Blood Cell CSF 1 MM*3
--- NOTE | 2025-04-26 18:38 | HO.NURTONUR ---
Pt is a 64yo M that came to ED c/o 16 days headache. Sharp/stabbing pain to back of neck. Pt was febrile on arrival. Orta cultured. LP performed, clear CSF sent to lab. CT angio shows possible pna. Pt to be admitted and treated for pna. Pt is tajik speaking but understands senegalese. A/ox3. Ambulatory at baseline. Takes pills whole. 20gLFA PMH- seizures, migraines, pancreatitis, BPH, CAD, HTN.
[2025-04-26 19:49] VITALS: BP 101/58; PULSE 80; RESP 18; TEMP 35.6; O2SAT 94
[2025-04-26] MEDS: 0.9 % Sodium Chloride Flush 3 ML SYRINGE IVFLUSH (20:30)
[2025-04-27 03:51] VITALS: BP 119/74; PULSE 67; RESP 18; TEMP 35.4; O2SAT 94
[2025-04-27 06:16] LABS: MANUAL DIFF FLAG NO
[2025-04-27 06:19] LABS: Hematocrit 37.3 % (42.0-52.0); Hemoglobin 11.9 g/dl (14.0-18.0); Imm Gran Abs Auto 0.09 X10*3/uL (0.00-0.03); Imm Gran Pct Auto 1.0 % (0.0-0.4); Lymphocytes Absolute Auto 1.2 X10*3/uL (1.2-4.9); Mean Corpuscular HGB Conc 31.9 g/dl (31.0-36.0); Mean Corpuscular Hemoglobin 27.0 pg (27.0-33.0); Mean Corpuscular Volume 84.8 fL (80.0-98.0); NRBC Abs Auto 0.000 X10*3/uL (0.0-0.012); NRBC Pct Auto 0.0 /100WBC (0.0-0.2); Platelet Count 368 X10*3/uL (160-400); Red Blood Count 4.40 X10*6/uL (4.60-5.80); White Blood Count 9.4 X10*3/uL (4.8-10.8)
[2025-04-27 06:40] LABS: Alanine Aminotransferase 102 U/L (0-40); Albumin Level 3.3 g/dL (3.5-5.0); Alkaline Phosphatase 149 U/L (39-117); Anion Gap 12 (12-20); Aspartate Amino Transferase 33 U/L (5-37); Blood Urea Nitrogen 25 mg/dL (9-16); Calcium 8.8 mg/dL (8.4-10.2); Carbon Dioxide 22 mmol/L (22-29); Chloride 108 mmol/L (96-108); Creatinine Clr Calc Pharmacy 107.0; Estimated Glomerular Filt Rate > 60; Potassium 4.4 mmol/L (3.3-5.1); Sodium 138 mmol/L (135-145); Total Protein 6.4 g/dL (6.5-8.0)
[2025-04-27 08:00] VITALS: BP 120/57; PULSE 56; RESP 19; TEMP 36.2; O2SAT 95
[2025-04-27] MEDS: 0.9 % Sodium Chloride Flush 3 ML SYRINGE IVFLUSH ×3 (08:12→20:24)
--- NOTE | 2025-04-27 15:04 | P.PNIM_ITS ---
Subjective Subjective Date of Service: 04/27/25 Interval History: Feeling significantly better than yesterday Reports his headache and pain has improved No fevers overnight Reports dizziness is persistent, but improving Review of Systems Review of Systems: Yes all other systems are reviewed and are negative Physical Exam 2 Exam: Exam: General: A&O x3, oriented to time place person and situation, comfortable, no pain HEENT: +ve Giuseppe-Hallpike bilaterally Cardiac: S1, S2 auscultated with no S3/4, no MRG. Well perfused. Respiratory: Right upper lobe crepitations auscultated, without respiratory distress. Otherwise vesicular breath sounds throughout all lung zones, without accessory muscle use, no peripheral or central cyanosis. GI/ : No abdominal pain on palpation, no masses or distentions. MSK: Normal ambulation without pain at bony prominences or musculature. Direct tenderness to palpation of the right paracervical support musculature/ trapezius and lower back Neurological: Normal neurological examination on overview, without obvious CN II-XII abnormalities. -ve Brudzinski & Kernig sign. Vital Signs: Vital Signs: Last Vital Signs Temp 97.2 F 04/27/25 08:00 Pulse 56 04/27/25 08:00 Resp 19 04/27/25 08:00 BP 120/57 L 04/27/25 08:00 Pulse Ox 95 04/27/25 08:00 O2 Del Method Room Air 04/27/25 08:00 BMI result Body Mass Index 26.6 Objective Data Active Medications Azithromycin (Azithromycin 500 Mg Tablet) 500 mg PO DAILY@1400 COUNTS INCLUDE 234 BEDS AT THE [facility] Last Admin: 04/27/25 14:26 Dose: 500 mg Documented By: DIAZ Benzonatate (Benzonatate 100 Mg Capsule) 100 mg PO TID PRN PRN Reason: Cough Calcium Carbonate (Calcium Carbonate 750 Mg Tab.Chew) 750 mg PO Q4H PRN PRN Reason: Heartburn Cyclobenzaprine HCl (Cyclobenzaprine Hcl 5 Mg Tablet) 5 mg PO TID COUNTS INCLUDE 234 BEDS AT THE [facility] Last Admin: 04/27/25 14:26 Dose: 5 mg Documented By: DIAZ Dicyclomine HCl (Dicyclomine Hcl 10 Mg Capsule) 10 mg PO BID PRN PRN Reason: for abdominal pain Docusate Sodium (Docusate Sodium 100 Mg Capsule) 100 mg PO BEDTIME COUNTS INCLUDE 234 BEDS AT THE [facility] Last Admin: 04/26/25 20:29 Dose: 100 mg Documented By: NORMAN Doxazosin Mesylate (Doxazosin Mesylate 2 Mg Tablet) 4 mg PO BEDTIME COUNTS INCLUDE 234 BEDS AT THE [facility]; Protocol Last Admin: 04/26/25 20:29 Dose: 4 mg Documented By: NORMAN Ezetimibe (Ezetimibe 10 Mg Tablet) 10 mg PO DAILY COUNTS INCLUDE 234 BEDS AT THE [facility] Last Admin: 04/27/25 08:11 Dose: 10 mg Documented By: DIAZ Enoxaparin Sodium (Enoxaparin Sodium 40 Mg/0.4 Ml Syringe) 40 mg SUBCUT Q24H COUNTS INCLUDE 234 BEDS AT THE [facility] Last Admin: 04/26/25 17:43 Dose: 40 mg Documented By: AVIS Finasteride (Finasteride 5 Mg Tablet) 5 mg PO DAILY COUNTS INCLUDE 234 BEDS AT THE [facility] Last Admin: 04/27/25 08:12 Dose: 5 mg Documented By: DIAZ Fluoxetine HCl (Fluoxetine Hcl 20 Mg Capsule) 80 mg PO DAILY COUNTS INCLUDE 234 BEDS AT THE [facility] Last Admin: 04/27/25 08:12 Dose: 80 mg Documented By: DIAZ Ceftriaxone Sodium 1 gm/ (Sodium Chloride) 50 mls @ 100 mls/hr IV Q24H COUNTS INCLUDE 234 BEDS AT THE [facility] Last Infusion: 04/27/25 13:50 Dose: Infused Documented By: DIAZ Ibuprofen (Ibuprofen 600 Mg Tablet) 600 mg PO TID COUNTS INCLUDE 234 BEDS AT THE [facility] Last Admin: 04/27/25 14:26 Dose: 600 mg Documented By: DIAZ Levetiracetam (Levetiracetam 500 Mg Tablet) 500 mg PO BID COUNTS INCLUDE 234 BEDS AT THE [facility] Last Admin: 04/27/25 08:12 Dose: 500 mg Documented By: DIAZ Magnesium Hydroxide (Milk Of Magnesia 30 Ml Oral.Susp) 30 ml PO DAILY PRN PRN Reason: Constipation Meclizine HCl (Meclizine Hcl 25 Mg Tablet) 25 mg PO TID COUNTS INCLUDE 234 BEDS AT THE [facility] Last Admin: 04/27/25 14:26 Dose: 25 mg Documented By: DIAZ Melatonin (Melatonin 3 Mg Tablet) 6 mg PO BEDTIME PRN PRN Reason: Insomnia Last Admin: 04/26/25 20:28 Dose: 6 mg Documented By: NORMAN Multivitamins/Vitamin C (Multivitamin Tablet) 1 tab PO DAILY COUNTS INCLUDE 234 BEDS AT THE [facility] Last Admin: 04/27/25 08:11 Dose: 1 tab Documented By: DIAZ Non-Formulary Medication (Icosapent Ethyl [Vascepa]) 1 gm PO DAILY COUNTS INCLUDE 234 BEDS AT THE [facility] Omeprazole (Omeprazole 40 Mg Capsule.Dr) 40 mg PO DAILY@0600 COUNTS INCLUDE 234 BEDS AT THE [facility] Last Admin: 04/27/25 05:14 Dose: 40 mg Documented By: NORMAN Sodium Chloride (0.9 % Sodium Chloride Flush 3 Ml Syringe) 3 ml IVFLUSH QSHIFT COUNTS INCLUDE 234 BEDS AT THE [facility] Last Admin: 04/27/25 08:12 Dose: 3 ml Documented By: DIAZ Topiramate (Topiramate 25 Mg Tablet) 25 mg PO DAILY COUNTS INCLUDE 234 BEDS AT THE [facility] Last Admin: 04/27/25 08:12 Dose: 25 mg Documented By: DIAZ Labs 04/27/25 06:01 04/27/25 06:01 Labs: Laboratory Results - last 24 hr 04/26/25 04/26/25 04/26/25 15:27 15:27 15:27 MCV MCH MCHC RDW Plt Count MPV Immature Gran % (Auto) Neut % (Auto) Lymph % (Auto) [place] % (Auto) Eos % (Auto) Baso % (Auto) Lymph # (Auto) [place] # (Auto) Eos # (Auto) Baso # (Auto) Abs Immat Gran (auto) Absolute Neuts (auto) Absolute Nucleated RBC Nucleated RBC % (auto) Anion Gap Estim Creat Clear Calc Estimated GFR Random Glucose Calcium Total Bilirubin AST ALT Alkaline Phosphatase Total Protein Albumin CSF Tube Number 2 1 4 CSF Volume 1.3 CSF Appearance CSF Color CSF WBC CSF RBC CSF Lymphocytes CSF Appearance (b) CSF Glucose CSF Total Protein CSF C.neoform/gat PCR CSF CMV DNA (PCR) CSF Enterovirus (PCR) CSF E. coli K1 (PCR) CSF H. influenzae (PCR) CSF HSV I (PCR) CSF HSV II (PCR) CSF HHV 6 (PCR) CSF L.monocytogenes PCR CSF N. meningitidis PCR CSF Parechovirus (PCR) CSF S. agalactiae (PCR) CSF S. pneumoniae (PCR) CSF VZV (PCR) 04/26/25 04/26/25 04/26/25 15:27 15:27 15:27 MCV MCH MCHC RDW Plt Count MPV Immature Gran % (Auto) Neut % (Auto) Lymph % (Auto) [place] % (Auto) Eos % (Auto) Baso % (Auto) Lymph # (Auto) [place] # (Auto) Eos # (Auto) Baso # (Auto) Abs Immat Gran (auto) Absolute Neuts (auto) Absolute Nucleated RBC Nucleated RBC % (auto) Anion Gap Estim Creat Clear Calc Estimated GFR Random Glucose Calcium Total Bilirubin AST ALT Alkaline Phosphatase Total Protein Albumin CSF Tube Number CSF Volume 1.3 CSF Appearance CLEAR CLEAR CSF Color COLORLESS COLORLESS CSF WBC 1 CSF RBC CSF Lymphocytes CSF Appearance (b) CSF Glucose CSF Total Protein CSF C.neoform/gat PCR CSF CMV DNA (PCR) CSF Enterovirus (PCR) CSF E. coli K1 (PCR) CSF H. influenzae (PCR) CSF HSV I (PCR) CSF HSV II (PCR) CSF HHV 6 (PCR) CSF L.monocytogenes PCR CSF N. meningitidis PCR CSF Parechovirus (PCR) CSF S. agalactiae (PCR) CSF S. pneumoniae (PCR) CSF VZV (PCR) 04/26/25 04/26/25 04/27/25 15:27 15:27 06:01 MCV 84.8 MCH 27.0 MCHC 31.9 RDW 13.2 Plt Count 368 MPV 8.8 L Immature Gran % (Auto) 1.0 H Neut % (Auto) 77.9 H Lymph % (Auto) 13.0 L [place] % (Auto) 7.9 Eos % (Auto) 0.0 Baso % (Auto) 0.2 Lymph # (Auto) 1.2 [place] # (Auto) 0.7 Eos # (Auto) 0.0 Baso # (Auto) 0.0 Abs Immat Gran (auto) 0.09 H Absolute Neuts (auto) 7.4 Absolute Nucleated RBC 0.000 Nucleated RBC % (auto) 0.0 Anion Gap 12 Estim Creat Clear Calc 107.0 Estimated GFR > 60 Random Glucose 120 H Calcium 8.8 D Total Bilirubin 0.2 AST 33 ALT 102 H Alkaline Phosphatase 149 H Total Protein 6.4 L Albumin 3.3 L CSF Tube Number CSF Volume CSF Appearance CSF Color CSF WBC 1 CSF RBC 1 1 CSF Lymphocytes 100 CSF Appearance (b) Clear, Colorless CSF Glucose 63 CSF Total Protein 31.8 CSF C.neoform/gat PCR Not Detected CSF CMV DNA (PCR) Not Detected CSF Enterovirus (PCR) Not Detected CSF E. coli K1 (PCR) Not Detected CSF H. influenzae (PCR) Not Detected CSF HSV I (PCR) Not Detected CSF HSV II (PCR) Not Detected CSF HHV 6 (PCR) Not Detected CSF L.monocytogenes PCR Not Detected CSF N. meningitidis PCR Not Detected CSF Parechovirus (PCR) Not Detected CSF S. agalactiae (PCR) Not Detected CSF S. pneumoniae (PCR) Not Detected CSF VZV (PCR) Not Detected Microbiology Microbiology Results: Microbiology 04/26/25 15:27 Gram Stain - Final Cerebrospinal Fluid Fluid Description - Final CSF Culture - Preliminary No growth after 1 day Assessment and Plan (1) CAD (coronary artery disease): Status: Acute (2) Palpitations: Status: Acute (3) Benign paroxysmal positional vertigo, bilateral: Status: Acute (4) Drug-induced hepatitis: Status: Acute (5) Transaminitis: Status: Acute (6) Sepsis: Status: Acute (7) Muscle spasm: Status: Acute (8) Migraine: Status: Acute (9) Headache: Status: Acute (10) Complex partial seizures: Status: Acute (11) CAP (community acquired pneumonia): Status: Acute (12) Syncope: Status: Acute Plan 64-year-old male with history of CAD, complex partial seizures, migraines, and recent excessive acetaminophen use, presenting with 16 days of occipital headache, neck pain, photophobia, subjective left-sided weakness, and new fever; found to have right upper lobe community-acquired pneumonia with sepsis, transaminitis likely secondary to acetaminophen overuse, and bilateral BPPV, now admitted for further management. Community-Acquired Pneumonia (Right Upper Lobe) with Sepsis Clinical Course: Presented with fever (Tmax 102?F), cough with purulent sputum, and right upper lobe infiltrate on imaging. Met SIRS criteria with tachycardia and fever. No hypotension or lactic acidosis. Started on empiric ceftriaxone and azithromycin in ED. Blood cultures and labs sent. No evidence of acute respiratory distress or hypoxemia. Plan: * Continue IV ceftriaxone and azithromycin (reassess based on culture results and clinical response) * Monitor for clinical improvement: daily vitals, O2 saturation, respiratory status * Encourage incentive spirometry, early mobilization * Monitor for complications: respiratory failure, empyema, sepsis progression * Repeat chest imaging if no improvement or clinical deterioration * De-escalate antibiotics per sensitivities and clinical course * Monitor for signs of malignancy given radiology concern (consider outpatient follow-up with pulmonology and possible CT chest after acute illness) Sepsis (without acute organ dysfunction) Clinical Course: Met sepsis criteria (fever, tachycardia, leukocytosis with neutrophilia, source identified as pneumonia). No hypotension, normal lactate, no end-organ dysfunction. Plan: * Continue IV fluids to maintain euvolemia * Monitor for hypotension, urine output, mental status changes * Serial lactate if clinical status changes * Daily labs: CBC, CMP, LFTs * Blood cultures pending; adjust antibiotics as indicated Benign Paroxysmal Positional Vertigo (BPPV), Bilateral Clinical Course: Positive Bannock-Hallpike bilaterally, chronic dizziness, no acute focal neurologic deficits. Plan: * Start meclizine 25 mg PO TID as needed for vertigo * Encourage vestibular rehabilitation maneuvers (Dustin, Ferro-Daroff) as tolerated * Fall precautions * Monitor for worsening symptoms or new neurologic deficits Drug-Induced Hepatitis (Transaminitis, likely acetaminophen-related) Clinical Course: Markedly elevated AST/ALT (AST 44, ALT 142, Alk Phos 190), history of excessive acetaminophen use for muscle pain/headache. No jaundice or hepatic encephalopathy. No evidence of acute liver failure. 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 History of migraines, but current episode likely exacerbated by recent physical activity. Plan: * Symptomatic management: cyclobenzaprine 5mg TID PO, ibuprofen 600mg TID PO * Avoid acetaminophen * Continue migraine prophylaxis (topiramate) and abortive therapy as needed (avoid triptans if CAD) * Physical therapy consult for neck and back muscle spasm * Apply heat/ice, gentle stretching * Monitor for improvement Complex Partial Seizures, Migraine, and Other Chronic Conditions Clinical Course: No acute seizure activity during admission. On levetiracetam and topiramate. Migraine history, currently with occipital headache. Plan: * Continue home antiepileptic regimen * Monitor for seizure activity * Neurology consult if new symptoms or breakthrough seizures * Continue migraine management as above Mild Cognitive Impairment, CAD, BPH, TIA, HLD Clinical Course: No acute events during this admission. Continue home medications as appropriate, monitor for delirium. Plan: * Continue home medications (hold statins if LFTs remain elevated) * Monitor for delirium/confusion * Address BPH symptoms as needed [employer] * VTE Prophylaxis: Enoxaparin 40 mg OD SQ * CODE STATUS: Full code * DIET: Regular Total time managing care of this patient today: 45 minutes. Quality Stroke Does the patient have a stroke diagnosis?: No VTE Prior VTE?: No VTE Risk Level:: Medical - moderate - high VTE Device Contraindication: Treatment Not Indicated VTE Drug Contraindication: N/A - Med Ordered
[2025-04-27 15:31] VITALS: BP 116/66; PULSE 70; RESP 18; TEMP 36.5; O2SAT 93
--- NOTE | 2025-04-27 15:38 | MHC.CM.PN ---
CM MET WITH PT WITH A [employer] PT REPORTS HE LIVES WITH HIS AND CHILDREN AND IS INDEPENDENT WITH CARE PT HAS NO DME AND NO SERVICES HCP ON FILE AND VERIFIED PCP: CLINT HOWELL IMM DELIVERED DCP: HOME VIA FAMILY TRANSPORT
[2025-04-27 20:00] VITALS: BP 126/69; PULSE 74; RESP 18; TEMP 36.2; O2SAT 92
[2025-04-27] MEDS: Milk of Magnesia 30 ML ORAL.SUSP PO (23:52)
[2025-04-28 02:48] VITALS: BP 121/68; PULSE 67; RESP 18; TEMP 36.4; O2SAT 93
[2025-04-28 06:46] LABS: MANUAL DIFF FLAG NO
[2025-04-28 06:56] LABS: Hematocrit 37.4 % (42.0-52.0); Hemoglobin 11.9 g/dl (14.0-18.0); Imm Gran Abs Auto 0.07 X10*3/uL (0.00-0.03); Imm Gran Pct Auto 0.9 % (0.0-0.4); Lymphocytes Absolute Auto 1.6 X10*3/uL (1.2-4.9); Mean Corpuscular HGB Conc 31.8 g/dl (31.0-36.0); Mean Corpuscular Hemoglobin 26.9 pg (27.0-33.0); Mean Corpuscular Volume 84.6 fL (80.0-98.0); NRBC Abs Auto 0.000 X10*3/uL (0.0-0.012); NRBC Pct Auto 0.0 /100WBC (0.0-0.2); Platelet Count 435 X10*3/uL (160-400); Red Blood Count 4.42 X10*6/uL (4.60-5.80); White Blood Count 7.4 X10*3/uL (4.8-10.8)
[2025-04-28 07:10] LABS: Alanine Aminotransferase 164 U/L (0-40); Albumin Level 3.4 g/dL (3.5-5.0); Alkaline Phosphatase 142 U/L (39-117); Anion Gap 14 (12-20); Aspartate Amino Transferase 84 U/L (5-37); Blood Urea Nitrogen 27 mg/dL (9-16); Calcium 8.9 mg/dL (8.4-10.2); Carbon Dioxide 27 mmol/L (22-29); Chloride 107 mmol/L (96-108); Creatinine Clr Calc Pharmacy 92.8; Estimated Glomerular Filt Rate > 60; Potassium 4.5 mmol/L (3.3-5.1); Sodium 143 mmol/L (135-145); Total Protein 6.5 g/dL (6.5-8.0)
[2025-04-28] MEDS: 0.9 % Sodium Chloride Flush 3 ML SYRINGE IVFLUSH (07:15)
[2025-04-28 08:00] VITALS: BP 123/70; PULSE 84; RESP 14; TEMP 36.3; O2SAT 93
--- NOTE | 2025-04-28 09:29 | P.DS_ITS ---
DS: Providers Provider Date of admission: 04/26/25 14:36 Date of discharge: 04/28/25 Primary care physician: Sherri Navarro MD DS: Diagnosis Discharge Diagnosis (1) CAD (coronary artery disease): Status: Acute (2) Palpitations: Status: Acute (3) Benign paroxysmal positional vertigo, bilateral: Status: Acute (4) Drug-induced hepatitis: Status: Acute (5) Transaminitis: Status: Acute (6) Sepsis: Status: Acute (7) Muscle spasm: Status: Acute (8) Migraine: Status: Acute (9) Headache: Status: Acute (10) Complex partial seizures: Status: Acute (11) CAP (community acquired pneumonia): Status: Acute (12) Syncope: Status: Acute DS: Summary Hospital Course Hospital Course: Chief Complaint: Headache SUMMARY STATEMENT 64-year-old male with history of CAD, complex partial seizures, migraines, and recent excessive acetaminophen use, presenting with 16 days of occipital headache, neck pain, photophobia, subjective left-sided weakness, and new fever; found to have right upper lobe community-acquired pneumonia with sepsis, transaminitis likely secondary to acetaminophen overuse, and bilateral BPPV, now admitted for further management. PRESENTATION Headache For the past 16 days, the patient has been describing a headache that has been developing in the right occipital region and the right side of his neck He reports the pain is a sharp stabbing like pain that occurs intermittently with head movement starting from the right occiput and right neck with radiation to the left occiput and right temporoparietal region with activity and movement of the head and neck. The patient has associated bilateral blurry vision as well as wincing and grimacing when he gets this pain. The pain lasts intensely for a couple of sec, then begins to improve gradually for the next few minutes. The patient denies any new paresthesias, slurred speech, weakness, persistent blurry vision. Patient denies any new rashes, ecchymosis. The headache is nonpositional, and is not worse when lying down flat. Fever/ cough Patient reports suffering with a fever over the past few days only. Reports that the fever is described as a warm feeling, occurring sparingly over the past week. He has not experienced fevers the week prior The patient does endorse an intermittent cough, with production of purulent sputum, yellow/green in color, worsening over the past few days. He denies any URI symptoms such as runny nose, sneezing. He denies sick contacts Back pain & tylenol use Of note, the patient reports recently finding a ?log of wood . He has been fasting this into a table, and building it himself. He has been using a hand saw to build it. The patient is right-handed dominant. Does endorse some new back pain He presented to the emergency department recently on Tuesday due to the headache, and received Tylenol, with some improvement The patient reports taking Tylenol multiple times on a daily basis for the past 2 weeks. ED COURSE Presenting Complaint: * 16 days of constant occipital headache, posterior neck pain/stiffness, photophobia, subjective left-sided weakness, and chronic lower abdominal pain. * Reports night sweats, intermittent subjective fevers, poor oral intake, and no cough.Initial Assessment: * Vitals: Febrile to 102?F in ED, tachycardic (HR 107), normotensive, O2 sat 92?99% on room air. * Exam: Alert, mild dry mucosa, photophobia, neck supple, no focal neurologic deficits, mild suprapubic tenderness. * Past medical history notable for seizures, migraine, TIA, CAD, and mild cognitive impairment.Workup: * Labs:?WNL WBC with neutrophilia and lymphopenia, mild anemia, mild transaminitis, normal lactate, low procalcitonin, unremarkable urinalysis except for 2+ protein. * Imaging: * CT Angio Head/Neck:?No acute intracranial process; new right upper lobe (RUL) airspace disease (infiltrate vs. mass). * Chest X-ray:?Patchy RUL opacity, probable bronchiectasis, no effusion. * CT Abd/Pelvis:?Limited by artifact, no acute findings. * LP performed:?Clear, colorless CSF; glucose 63 mg/dL, protein 31.8 mg/dL (within normal limits); opening pressure not obtained.ED Interventions: * IV fluids for hydration. * Empiric antibiotics: Ceftriaxone and azithromycin initiated for suspected pulmonary source of sepsis. * Antipyretics and symptomatic management (acetaminophen, metoclopramide, dexamethasone). * Blood cultures and additional labs sent. PROBLEM LIST Community-Acquired Pneumonia (Right Upper Lobe) with Sepsis Clinical Course: Presented with fever (Tmax 102?F), cough with purulent sputum, and right upper lobe infiltrate on imaging. Met SIRS criteria with tachycardia and fever. No hypotension or lactic acidosis. Started on empiric ceftriaxone and azithromycin in ED. Blood cultures and labs sent. No evidence of acute respiratory distress or hypoxemia. Continue antibiotics x7 days total Sepsis (without acute organ dysfunction) Clinical Course: Met sepsis criteria (fever, tachycardia, leukocytosis with neutrophilia, source identified as pneumonia). No hypotension, normal lactate, no end-organ dysfunc tion. RESOLVED Benign Paroxysmal Positional Vertigo (BPPV), Bilateral Clinical Course: Positive Giuseppe-Hallpike bilaterally, chronic dizziness, no acute focal neurologic deficits. Continue Meclizine 25mg TID PO Drug-Induced Hepatitis (Transaminitis, likely acetaminophen-related) Clinical Course: Markedly elevated AST/ALT (AST 44, ALT 142, Alk Phos 190), history of excessive acetaminophen use for muscle pain/headache. No jaundice or hepatic encephalopathy. No evidence of acute liver failure. Avoid hepatotoxins Avoid tylenol for pain relief Muscle Spasm with Occipital Migraine (likely secondary to increased physical activity/chopping wood) Clinical Course: Occipital headache and neck pain, worsened with movement, associated with muscle tenderness and spasm. History of migraines, but current episode likely exacerbated by recent physical activity. Symptomatic management: cyclobenzaprine 5mg TID PO, ibuprofen 600mg TID PO Avoid acetaminophen Complex Partial Seizures, Migraine, and Other Chronic Conditions Clinical Course: No acute seizure activity during admission. On levetiracetam and topiramate. Migraine history, currently with occipital headache. Status at Discharge Cognitive/behavioral status at discharge: A&O x4 Functional status at discharge: independent ambulation Overall status at discharge: patient is back to baseline Time Attestation Total time managing care of this patient today: 45 mintues. Discharge Coordination Time (in mins): 35 Quality: Safe Use of Opioids Does Pt have an Active Cancer Diagnosis on the Problem List?: No Quality: Stroke Does the patient have a stroke diagnosis?: No Physical Exam Exam: Exam: General: A&O x3, oriented to time place person and situation, comfortable, no pain HEENT: +ve Giuseppe-Hallpike bilaterally Cardiac: S1, S2 auscultated with no S3/4, no MRG. Well perfused. Respiratory: Right upper lobe crepitations auscultated, without respiratory distress. Otherwise vesicular breath sounds throughout all lung zones, without accessory muscle use, no peripheral or central cyanosis. GI/ : No abdominal pain on palpation, no masses or distentions. MSK: Normal ambulation without pain at bony prominences or musculature. Direct tenderness to palpation of the right paracervical support musculature/ trapezius and lower back Neurological: Normal neurological examination on overview, without obvious CN II-XII abnormalities. -ve Brudzinski & Kernig sign. Vital Signs: Vital Signs: Last Vital Signs Temp 97.3 F 04/28/25 08:00 Pulse 84 04/28/25 08:00 Resp 14 04/28/25 08:00 BP 123/70 04/28/25 08:00 Pulse Ox 93 04/28/25 08:00 O2 Del Method Room Air 04/28/25 08:00 BMI result Body Mass Index 26.6 DS: Data Data Completed and Pending Labs on day of discharge: Laboratory Results - last 24 hr 04/28/25 05:31 WBC 7.4 RBC 4.42 L Hgb 11.9 L Hct 37.4 L MCV 84.6 MCH 26.9 L MCHC 31.8 RDW 13.4 Plt Count 435 H MPV 9.0 L Immature Gran % (Auto) 0.9 H Neut % (Auto) 69.4 Lymph % (Auto) 22.2 Ocean % (Auto) 6.1 Eos % (Auto) 1.1 Baso % (Auto) 0.3 Lymph # (Auto) 1.6 Ocean # (Auto) 0.5 Eos # (Auto) 0.1 Baso # (Auto) 0.0 Abs Immat Gran (auto) 0.07 H Absolute Neuts (auto) 5.1 Absolute Nucleated RBC 0.000 Nucleated RBC % (auto) 0.0 Sodium 143 Potassium 4.5 Chloride 107 Carbon Dioxide 27 Anion Gap 14 BUN 27 H Creatinine 0.83 Estim Creat Clear Calc 92.8 Estimated GFR > 60 Random Glucose 89 Calcium 8.9 Total Bilirubin 0.2 AST 84 H ALT 164 H Alkaline Phosphatase 142 H Total Protein 6.5 Albumin 3.4 L Preliminary micro results at discharge 04/26/25 13:58 Blood Culture - Preliminary Blood - Venous No growth after 24 hours. 04/26/25 13:58 Blood Culture - Preliminary Blood - Venous No growth after 24 hours. 04/26/25 15:27 CSF Culture - Preliminary Cerebrospinal Fluid No growth after 1 day Discharge Plan Discharge Anticipated Discharge Date/Time: 04/28/25 09:37 Patient Disposition: Home, Self-Care Discharge Diagnosis: Community-acquired pneumonia, muscle spasm and drug-induced liver injury 2/2 acetaminophen overuse Referrals: Sherri Selby MD [Primary Care Provider, Internal Medicine] - 1 Week Discharge Medications: New ibuprofen 600 mg Tablet 600 mg PO TID 7 Days Qty: 21 0RF meclizine 25 mg Tablet 25 mg PO TID 7 Days Qty: 21 0RF cephalexin 500 mg capsule 500 mg PO BID Qty: 14 0RF benzonatate 100 mg Capsule 100 mg PO TID PRN (Reason: Cough) 7 Days Qty: 21 0RF cyclobenzaprine 5 mg Tablet 5 mg PO TID 7 Days Qty: 21 0RF omeprazole 40 mg Capsule,Delayed Release(Dr/Ec) 40 mg PO DAILY@0600 7 Days Qty: 7 0RF azithromycin 500 mg tablet 500 mg PO DAILY 7 Days Qty: 7 0RF Continued famotidine 40 mg tablet 40 mg PO BEDTIME Qty: 90 3RF ezetimibe 10 mg tablet 10 mg PO DAILY Qty: 90 3RF terazosin 5 mg capsule 5 mg PO BEDTIME 90 Days Qty: 90 1RF dicyclomine 10 mg capsule 10 mg PO BID PRN (Reason: for abdominal pain) Qty: 60 2RF finasteride 5 mg tablet 5 mg PO DAILY 90 Days Qty: 90 2RF topiramate 25 mg tablet 25 mg PO DAILY acetaminophen 650 mg tablet extended release 650 mg PO Q8H PRN (Reason: pain) diclofenac sodium 1 % gel 4 g topical BID PRN (Reason: pain) Certavite-Antioxidant 18-400 mg-mcg Tablet 1 tab PO DAILY atorvastatin 80 mg tablet 80 mg PO BEDTIME aspirin 81 mg tablet,delayed release (DR/EC) 81 mg PO DAILY nitroglycerin 0.4 mg tablet, sublingual 0.4 mg sublingual Q15M PRN (Reason: Chest Pain) icosapent ethyl [Vascepa] 1 gram capsule 1 g PO DAILY docusate sodium 100 mg capsule 100 mg PO BEDTIME Qty: 90 3RF fluoxetine 40 mg capsule 80 mg PO DAILY levetiracetam 500 mg tablet 500 mg PO BID Qty: 180 1RF Discharge Orders: Discharge Order (Routine); Ordered 04/28/25 Ordered By: Son Benjamin Diet: Advance to usual diet Activity on Discharge: As tolerated Stand Alone Forms: Patient Portal Discharge page Print Language: Icelandic Care Plan Goals: As above Health Concerns: As above Plan of Treatment: Follow up with PCP within 1 week of discharge Complete antibiotics for 7 days total Assessment: Hemodynamically stable for discharge
--- NOTE | 2025-04-28 09:59 | MHC.CM.PN ---
PT TO [place] TODAY, NO SERVICES INDICATED FAMILY TO TRANSPORT
[2025-04-28 10:58] VITALS: BP 106/65; RESP 16; TEMP 36.4; O2SAT 96
== END 2025-04-28 11:03 | disposition home or self-care (01) | DRG 871 ==
LOC: HO.ED 11:10 → HO.EDOVER 16:58 → HO.S3 17:45
PROVIDERS: Physician Assistant Medical; Admitting Provider Hospitalist; Emergency Provider Emergency Medicine; PCP Student in an Organized Health Care Education/Training Program; Visit Provider Hospitalist
DX: A41.9 Sepsis, unspecified organism (principal); J18.9 Pneumonia, unspecified organism; G40.209 Localization-related (focal) (partial) symptomatic epilepsy and epileptic syndromes with complex partial seizures, not intractable, without status epilepticus; I25.10 Atherosclerotic heart disease of native coronary artery without angina pectoris; H81.13 Benign paroxysmal vertigo, bilateral; M62.838 Other muscle spasm; G43.809 Other migraine, not intractable, without status migrainosus; N40.0 Benign prostatic hyperplasia without lower urinary tract symptoms; K71.6 Toxic liver disease with hepatitis, not elsewhere classified; T39.1X5A Adverse effect of 4-Aminophenol derivatives, initial encounter; Z20.822 Contact with and (suspected) exposure to COVID-19; Z79.82 Long term (current) use of aspirin; Z79.899 Other long term (current) drug therapy
CPT/HCPCS: 36415; 70496; 70498; 71046; 74176; 74221; 80053; 81001; 81003; 82945; 83605; 83690; 83735; 84145; 84157; 85025; 87015; 87040; 87070; 87205; 87483; 87637; 89051; 99285; J0131; J0456; J0696; J1100; J1650; J2765; J7120; Q9967

== ENCOUNTER → 2025-04-26 14:36 | Outpatient (BNV) | payer OTHER, SELFPAY | PROVIDERS: Admitting Provider Hospitalist; Emergency Provider Emergency Medicine; PCP Student in an Organized Health Care Education/Training Program; Visit Provider Hospitalist | DX: A41.9 Sepsis, unspecified organism (principal); I25.10 Atherosclerotic heart disease of native coronary artery without angina pectoris; R10.32 Left lower quadrant pain; J18.9 Pneumonia, unspecified organism; H81.13 Benign paroxysmal vertigo, bilateral; R74.01 Elevation of levels of liver transaminase levels; K71.6 Toxic liver disease with hepatitis, not elsewhere classified; T50.905A Adverse effect of unspecified drugs, medicaments and biological substances, initial encounter; G40.209 Localization-related (focal) (partial) symptomatic epilepsy and epileptic syndromes with complex partial seizures, not intractable, without status epilepticus; G43.009 Migraine without aura, not intractable, without status migrainosus; M62.838 Other muscle spasm | CPT/HCPCS: 99223; 99232 ==

== ENCOUNTER 2025-05-02 11:37 | Outpatient (REF) | payer OTHER, SELFPAY ==
--- OUTSIDE RECORDS SUMMARY | 2025-05-02 15:19 | XMS_ITS | Encounter Summary ---
Author Organization [employer] Address [address] [facility] 7t [place] [address] Care Team Providers Care Drive Man Name Role Phone Lorenza Hodge Primary Care Provider Sherri Leyva MD Primary Care Pro vider Liane Alfred MD Unavailable [phone] Holly Araujo NP Unavailable Shefali Delgado MD Unavailable [phone] Encounter Details Date Type Department Care Team (Late st Contact Info) Description 11/25/2022 Orders Only [facility] [address] [place] [id number] Lorenza Hodge FNP Social History Tobacco Use [...] Care Team (Late st Contact Info) Description 05/06/2025 2:00 PM EST Office Visit [facility] [address] [place] [phone] Linda Cummings AUTOCAD DETAILER [address] [place] [address] 05/24/2025 10:00 AM EST Office Visit [facility] OPTOMETRY [address] [place], [place] [phone] Mitali Kirby, OD [address] [place] [address] 07/02/2025 9:00 AM EST Office Visit [facility] [address] [place] [address] Sherri Selby MD [address] [place], [place] [phone] documented as of this encounter Procedures Procedure Name Priority Date/Time Associated Diagnosis Comments US RENAL BI Routine 12/06/2022 1:54 PM EDT documented in this encounter Results * US RENAL BI (12/06/2022 1:54 PM EDT) Anatomical Region Laterality Modality Abdomen Ultrasound 12/06/2022 1:54 PM EDT Narrative 12/09/2022 6:44 PM EDT [address] [address] Ultrasound Report Signed Patient: Inderjit Stoner MR #: [id number] : 1960 Acct:[id number] Age/Sex: 62 / M ADM Date: 12/06/22 Loc: HO.US Attending Dr: Lorenza Hodge AUTOCAD DETAILER Ordering Physician: Lorenza Hodge Date of Service: 12/06/22 Procedure(s): US renal BI Accession Number(s): [id number] cc: Lorenza Hodge EXAMINATION: US RETROPERITONEAL LIMITED [...] in OV> 12/09/22 1841 DD/ 1354 TD/TT: Head Charrer: Procedure Note Donotuseinterpreter, Image - 12/09/2022 [place] [address] Ultrasound Report Signed Patient: Inderjit Stoner [facility] #: [id number] : [id number]:[id number] Age/Sex: 62 / MADM Date: 12/06/22 Loc: HO.US Attending Dr: Lorenza ROMEROP Ordering Physician: Lorenza Hodge Date of Service: 12/06/22 Procedure(s): US renal BI Accession Number(s): [id number] cc: Lorenza Hodge EXAMINATION: US RETROPERITONEAL LIMITED [...] in OV> 12/09/22 1841 DD/ 1354 TD/TT: Head Charrer: us Lorenza Hodge AUTOCAD DETAILER IMG US PROCEDURES Edited R esult - Final documented in this encounter Visit Diagnoses Not on filedocumented in this encounter Additional Health Concerns Assessment Noted Time PHQ-9 Depression Total Score: 16 023 9:09 AM EDT documented as of this encounter Care Teams Drive Man Relationship Specialty Start Date End Date Lorenza Hodge FNP PCP - General Family Medicine 04/05/22 02/01/23 Sherri Selby MD [address] [place] [address] PCP - General Internal Medicine 02/02/23 Liane Alfred MD [address] [place] [address] Dr Cleaning [address] [place] [address] Neurology 12/25/24 Holly Araujo NP [address] [place] [address] Urology 12/25/24 Shefali Delgado MD [address] [place] [address] Hematology and Oncology 12/25/24 [facility] [address] [facility] [address] [phone] (Fax) 12/25/24 [facility] [address] 2nd [address] [facility] [address] 12/25/24 documented as of this encounter
--- OUTSIDE RECORDS SUMMARY | 2025-05-02 15:19 | XMS_ITS | Encounter Summary ---
Author Organization [employer] Address [address] [facility] 7t [place] [address] Care Team Providers Care Television Equipment Operator Name Role Phone Funmi Easton MD Primary Care Provider Lorenza Stroud Primary Care Provider Sherri Leyva MD Primary Care Pro vider Liane Alfred MD Unavailable Holly Araujo NP Unavailable Shefali Delgado MD Unavailable [phone] Encounter Details Date Type Department Care Team (Latest Contact Info) Description 03/23/2021 Abstract [facility] CONVERSIONS Dental, Provider, DDS Social History [...] Description 05/06/2025 2:00 PM EST Office Visit [facility] MEDICINE [address] [place] [address] Linda Cummings FNP [address] [place], [place] [phone] 05/24/2025 10:00 AM EST Office Visit [facility] OPTOMETRY [address] [place], [place] [phone] Mitali Kirby, OD [address] [place] [address] 07/02/2025 9:00 AM EST Office Visit [facility] MED[facility]INE [address] [place] [address] Shreri Selby MD [address] [place] [address] documented as of this encounter Visit Diagnoses Not on filedocumented in this encounter Care Teams Television Equipment Operator Relationship Specialty Start Date End Date Funmi Easton MD PCP - General Family Medicine 03/20/19 04/04/22 Lorenza Hodge FNP PCP - General Family Medicine 04/05/22 02/01/23 Sherri Selby MD [address] [place] [address] PCP - General Internal Medicine 02/02/23 Liane Alfred MD [address] [place] [address] [place] [address] Neurology 12/25/24 Holly Araujo NP [address] [place] [address] Urology 12/25/24 Shefali Delgado MD [address] [place] [address] Hematology and Oncology 12/25/24 [facility] [address] [facility] [address] [phone] (Fax) 12/25/24 [facility]) [address] Floor [address] [facility] [address] 12/25/24 documented as of this encounter
--- OUTSIDE RECORDS SUMMARY | 2025-05-02 15:19 | XMS_ITS | Encounter Summary ---
Author Organization [employer] Address [address] [facility] 7t [place] [address] Care Team Providers Care Sign Builder Supervisor Name Role Phone Sherri Selby MD Primary Care Pro vider Liane Alfred MD Unavailable [phone] Holly Araujo NP Unavailable Shefali Delgado MD Unavailable [phone] Reason for Visit * Reason Comments Med Refill Encounter Details Date Type Department Care Team (Late st Contact Info) Description 09/01/2024 Refill [facility] MEDICINE [address] [place], [place] [phone] Sherri Selby MD [address] [place], [place] [phone] Flank pain Social History Tobacco Use Types [...] Description 05/06/2025 2:00 PM EST Office Visit [facility] MEDICINE [address] [place] [address] Linda Cummings FNP [address] [place] [address] 05/24/2025 10:00 AM EST Office Visit [facility] OPTOMETRY [address] [place] [address] Mitali Kriby, OD [address] [place] [address] 07/02/2025 9:00 AM EST Office Visit [facility] MEDICINE [address] [place] [address] Sherri Selby MD [address] [place] [address] documented as of this encounter Visit Diagnoses Diagnosis Flank pain Abdominal pain, unspecified site documented in this encounter Additional Health Concerns Assessment Noted Time PHQ-9 Depression Total Score: 7 08/18/19 25 9:01 AM EDT documented as of this encounter Care Teams Sign Builder Supervisor Relationship Specialty Start Date End Date Sherri Selby MD [address] [place] [address] PCP - General Internal Medicine 02/02/23 Liane Alfred MD [address] [place] [address] Dr Cleaning [address] [place] [address] Neurology 12/25/24 Holly Araujo NP [address] [place] [address] Urology 12/25/24 Shefali Delgado MD [address] [place] [address] Hematology and Oncology 12/25/24 [facility] [address] [facility] [address] [phone] (Fax) 12/25/24 [facility] [address] [facility] 2nd Floor [address] [facility] [address] 12/25/24 documented as of this encounter
--- OUTSIDE RECORDS SUMMARY | 2025-05-02 15:19 | XMS_ITS | Clinical Summary ---
Author Organization [employer] Address [address] [place] [address] Phone Care Team Providers Care Toolroom Clerk Name Role Phone Unavailable Primary Care Provider [...] Depression Screening 05/16/2024 COVID-19 Vaccine (1 - 2024-2 6 season) 2025 Influenza Vaccine (#1) 2025 RSV [...]
--- OUTSIDE RECORDS SUMMARY | 2025-05-02 15:19 | XMS_ITS | Encounter Summary ---
Author Organization [employer] Address [address] [facility] 7t [place] [address] Care Team Providers Care Marine Fire Fighter Name Role Phone Funmi Easton MD Primary Care Provider Lorenza Stroud Primary Care Provider Sherri Leyva MD Primary Care Pro vider Liane Alfred MD Unavailable Holly Araujo NP Unavailable Shefali Delgado MD Unavailable [phone] Encounter Details Date Type Department Care Team (Latest Contact Info) Description 05/02/2019 Abstract [facility] CONVERSIONS Dental, Provider, DDS Social History [...] Description 05/06/2025 2:00 PM EST Office Visit [facility] MEDICINE [address] [place], [place] [phone] Linda Cummings FNP [address] [place], [place] [phone] 05/24/2025 10:00 AM EST Office Visit [facility] OPTOMETRY [address] [place], [place] [phone] Mitali Kirby, OD [address] [place] [address] 07/02/2025 9:00 AM EST Office Visit [facility] MEDICINE [address] [place] [address] Sherri Selby MD 230 [place] [address] documented as of this encounter Visit Diagnoses Not on filedocumented in this encounter Care Teams Marine Fire Fighter Relationship Specialty Start Date End Date Funmi Easton MD PCP - General Family Medicine 03/20/19 04/04/22 Lorenza Hodge FNP PCP - General Family Medicine 04/05/22 02/01/23 Sherri Selby MD [address] [place] [address] PCP - General Internal Medicine 02/02/23 Liane Alfred MD [address] [place] [address] [place] [address] Neurology 12/25/24 Holly Araujo NP [address] [place] [address] Urology 12/25/24 Shefali Delgado MD [address] [place] [address] Hematology and Oncology 12/25/24 [facility] [address] [facility] [address] [phone] (Fax) 12/25/24 [facility]) [address] [facility] [address] 12/25/24 documented as of this encounter
--- OUTSIDE RECORDS SUMMARY | 2025-05-02 15:19 | XMS_ITS | Encounter Summary ---
Author Organization [employer] Address [address] [place] [address] Care Team Providers Care File System Installer Name Role Phone Sherri Selby MD Primary Care Pro vider Liane Alfred MD Unavailable [phone] Holly Araujo NP Unavailable Shefali Delgado MD Unavailable [phone] Encounter Details Date Type Department Care Team (Latest Contact Info) Description 04/26/2025 Results Follow-Up [facility] MEDICINE [address] [place], [place] [phone] Sherri Selby MD [address] [place], [place] [phone] CBC auto differential, Urinalysis, Complete, with Reflex to Culture, Comprehensive Metabolic Panel, Additional followed-up results: 7 Social History Tobacco Use Types Packs/Day Years [...] Encounter Note - Sherri Navarro MD - 04/26/2025 4:20 PM EST Please can you Fax levetiracetam result now to his neurologist office-Dr Alfred Send messa to [facility] as below I already spoke with neurologist office and they are aware of low level and I request neurologist follow result and patient for ongoing HARP ,seen in ED today Also please assist with follow up if needed after ED visit today . He has apt w me in and most importantly needs to see neurologist but if pt wants as well f up here please help w apts with available provider if needs earlier apt Pt needs to do blood workup I order to monitor his liver please advise pt to get labs done documented in this encounter Plan of Treatment Upcoming Encounters Date Type Department Care Team (Late st Contact Info) Description 05/06/2025 2:00 PM EST Office Visit [facility] MEDICINE [address] [place] [address] Linda Cummings, ANIMAL ANATOMIST [address] [place] [address] 05/24/2025 10:00 AM EST Office Visit [facility] OPTOMETRY [address] [place] [address] oKfi Mitali, OD [address] [place] [address] 07/02/2025 9:00 AM EST Office Visit [facility] MEDICINE [address] [place] [address] Sherri Selby MD [address] [place] [address] documented as of this encounter Visit Diagnoses Not on filedocumented in this encounter Additional Health Concerns Assessment Noted Time PHQ-9 Depression Total Score: 7 08/18/19 9:01 AM EDT documented as of this encounter Care Teams File System Installer Relationship Specialty Start Date End Date Sherri Selby MD [address] [place] [address] PCP - General Internal Medicine 02/02/23 Liane Alfred MD [address] [place] [address] [place] [address] Neurology 12/25/24 Holly Araujo NP [address] [place] [address] Urology 12/25/24 Shefali Delgado MD [address] [place] [id number] Hematology and Oncology 12/25/24 [facility] [address] [place] [phone] (Fax) 12/25/24 Pain Management ([facility]) [address] [facility] [address] 12/25/24 documented as of this encounter
--- OUTSIDE RECORDS SUMMARY | 2025-05-02 15:19 | XMS_ITS | Clinical Summary ---
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 08/05/19 24 Active lidocaine-pril ocaine (Emla) 2.5-2.5 % cream Apply topically if needed each day for mild pain. 30 g 2 08/15/19 25 Active traZODone (Desyrel) 50 MG tablet Take 50 mg by mouth at bedtime. 08/04/19 25 Active hydrOXYzine pamoate (Vistaril) 25 MG capsule 08/26/19 24 Active sodium chloride (Navarro) 0.65 % nasal spray Administer 1 spray into each nostril if needed for congestion. 15 mL 2 08/18/19 25 026 Active Icosapent Ethyl (Vascepa) 1 g capsule Take 2 capsules (2 g) by mouth with breakfast and with evening meal. 120 capsule 11 5 1:45 PM EST 08/23/19 25 026 Active Multiple Vitamins-Smoking Tobacco Packer Hand als (CertaVite/Ant ioxidants) tablet TAKE 1 TABLET [...] prn pain 60 tablet 04/20/20 25 Active atorvastatin (Lipitor) 80 MG tablet TAKE 1 TABLET BY MOUTH AT BEDTIME 90 tablet 1 04/30/20 25 Active atorvastatin (Lipitor) 80 MG tablet Take 1 tablet (80 mg) by mouth Once per day. 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 Care Managed by [facility] Last appt 04/28/22 Treating Keppra 250mg [...] recurrent major depressive disorder, with psychotic features ([facility]) 11/30/2017 Assessment & Plan (07/20/2023 3:25 PM [...] intervention and Patient to reach out to [facility] ED team as needed Rule Out Diagnoses n/a [...] Encounters Date Type Department Care Team Description 04/30/2025 Refill [facility] [address] [place] [address] Mague Parish MD 04/26/2025 Results Follow-Up [facility] [address] [place] [phone] Sherri Selby MD CBC auto differential, Urinalysis, Complete, with Reflex to Culture, Comprehensive Metabolic Panel, Additional followed-up results: 7 04/26/2025 Results Follow-Up [facility] [address] [place] [address] Mague Oniel RN POCT Rapid Influenza B STARR ID NOW, POCT Rapid Influenza A STARR ID NOW, POCT Rapid Covid-19 BinaxNOW, Levetiracetam 04/26/2025 Orders Only GENERIC EXTERNAL DATA DEPARTMENT Provider, Generic External Data 04/21/2025 Orders Only GENERIC EXTERNAL DATA DEPARTMENT Provider, Generic External Data 04/20/2025 10:00 AM EST Office Visit [facility] [address] [place] [phone] Anna Nguyen MD 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) (HCC) (Primary Dx); Body aches; Neck pain, chronic 04/20/2025 Travel 04/18/2025 Telephone [facility] [address] [place] [phone] Sherri Selby MD Durable Medical Equipment 03/06/2025 Orders Only [address] [address] Sherri Selby MD Poor memory (Primary Dx) 03/02/2025 Results Follow-Up [address] [address] Sherri Selby MD US Head Neck Soft Tissue, FL Esophagus Barium Swallow w/Air 03/01/2025 1:30 PM EDT Office Visit [facility] [address] [place] [phone] Sherri Selby MD Transaminitis (Primary Dx); Encounter for immunization; Mixed hyperlipidemia; Overweight; Prediabetes; Dysphagia, unspecified type; Health care maintenance; Poor memory 03/01/2025 Telephone [facility] [address] [place] [phone] Sherri Selby MD 03/01/2025 Travel 02/28/[address] [address] Sherri Selby MD chart prep 02/27/2025 Results Follow-Up [facility] [address] [place] [phone] Sherri Selby MD CBC auto differential, Chlamydia/Trichomonas/ Neisseria gonorrhoeae, PCR, Urine, Comprehensive Metabolic Panel, Additional followed-up results: 4 02/19/2025 Orders Only [facility] [address] [place] [phone] Sherri Selby MD Health care maintenance (Primary Dx) 02/19/[address] [address] Sherri Selby MD Lab Orders 02/11/[address] [address] Sherri Selby MD Appointment from Last 3 [...] Description 05/06/2025 2:00 PM EST Office Visit [facility] [address] [place] [phone] Linda Cummings, REFRIGERATION BRAZER/SOLDERER [address] [place] [address] 05/24/2025 10:00 AM EST Office Visit [facility] [address] [place] [address] Mitali Kirby, OD [address] [place] [address] 07/02/2025 9:00 AM EST Office Visit [facility] [address] [place] [phone] Sherri Selby MD [address] [place] [address] Health Maintenance Due Date Last Done Comments [...] Screening 04/20/2026 04/20/2025 Lipid Panel 02/27/2030 02/27/2025, 08/16, 03/19/2024, Additional [...] Procedure Name Priority Date/Time Associated Diagnosis Comments TOTAL PROTEIN CSF Routine 04/26/2025 3:2 7 PM EST GLUCOSE, CSF Routine 04/26/2025 3:27 PM EST PROCALCITONIN Routine 04/26/2025 1:58 PM EST LACTIC ACID Routine 04/26/2025 1:58 PM EST XR CHEST 2 VIEWS Routine 04/26/2025 1:26 PM EST CTA HEAD NECK W AND WO CONTRAST Routine 04/26/2025 12:[address] ABDOMEN PELVIS WO CONTRAST Routine 04/26/2025 12:14 PM EST LIPASE Routine 04/26/2025 9:54 AM EST MAGNESIUM Routine 04/26/2025 9:54 AM EST COMPREHENSIVE METABOLIC PANEL Routine 04/26/2025 9:54 AM EST URINALYSIS, COMPLETE, WITH REFLEX TO CULTURE Routine 04/26/2025 9:54 AM EST CBC WITH AUTO DIFFERENTIAL Routine 04/26/2025 9:54 AM EST SARS COV2/INFLUENZA A/B AND RSV RNA QL NAAT Routine 04/26/2025 9:54 AM EST FL ESOPHAGUS BARIUM SWALLOW WITH AIR Routine 04/26/2025 8:53 AM EST LEVETIRACETAM Routine 04/23/2025 9:36 AM EST 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) (HCC) CBC WITH AUTO DIFFERENTIAL Routine 04/21/2025 8:09 AM EST SARS COV2/INFLUENZA A/B AND RSV RNA QL NAAT Routine 04/21/2025 8:09 AM EST POCT INFLUENZA B (ID NOW RAPID MOLECULAR) [...] Recently Relevant to Health Maintenance Results * Total Protein CSF (04/26/2025 3:27 PM EST) Total Protein CSF 31.8 15 - 45 mg/dL [facility] 04/26/2025 3:27 PM EST 04/26/2025 3:34 PM EST Generic External Data Provider LAB BODY FLUIDS A ND STOOLS ORDERABLES Final Result Performing Organization Address [facility] Co de Phone Number [facility] [address] [place] [phone] * Glucose, CSF (04/26/2025 3:27 PM EST) CSF Appearance Clear, Colorless [facility] CSF Tube Number 2 [facility] Glucose CSF 63 mg/dL [facility] 04/26/2025 3:27 PM EST 04/26/2025 3:34 PM EST Generic External Data Provider LAB BODY FLUIDS A ND STOOLS ORDERABLES Final Result Performing Organization Address [facility] de Phone Number [facility] [address] [place] [phone] * Procalcitonin (04/26/2025 1:58 PM EST) Procalcitonin 0.10 ng/mL [facility] Comment: Procalcitonin (PCT) Reference Range:PCT greater than 2.0 ng/mL: A PCT level above 2.0 ng/mL onthe first day of ICU admission is associated with a highrisk for progression to severe sepsis and/or septic shock.PCT less than 0.5 ng/mL: A PCT level below 0.5 ng/mL on thefirst day of ICU admission is associated with a low risk forprogression to severe sepsis and/or septic shock.PCT levels below 0.5 ng/mL do not exclude an infection.Care must be taken in interpreting PCT results fromdifferent laboratories and methodologies.References:[place] [employer]/Society of CriticalCare Medicine Consensus Conference Committee. Definitionsfor sepsis and organ failure and guidelines for the use ofinnovative therapies in sepsis. Crit Care Bpv8027;20(6):864-874.Bertrand B, Fanny KL, Bronwyn H, et al. Calcitoninprecursors are reliable markers of sepsis in a medicalintensive care unit. Crit Care Med 2000;363:600-607.Nino S, Delia K, Anderson C, et al. Diagnosticvalue of procalcitonin, interleukin-6 and interleukin-8 incritically ill patients admitted with suspected sepsis. AMJ Respir Crit Care Med 2001;164:396-402.[place] Food and Drug Administration. 510(k) substantialequivalence determination decision summary for [facility] PCTLIA.http://www.accessdata.fda.fov/cdrh_docs/reviews/Y655630.pdf.Published May 2004. Accessed October 2016. 04/26/2025 1:58 PM EST 04/26/2025 2:06 PM EST Generic External Data Provider LAB BLOOD ORDERAB LES Final Result Performing Organization Address [facility] Co de Phone Number [facility] [address] [place] [address] [phone] Lactic Acid (04/26/2025 1:58 PM EST) Lactic Acid 0.6 0.5 - 2.0 mmol/L [facility] 04/26/2025 1:58 PM EST 04/26/2025 2:06 PM EST Generic External Data Provider LAB BLOOD ORDERAB LES Final Result Performing Organization Address [facility] de Phone Number [facility] [address] [place] [address] [phone] * XR Chest 2 Views (04/26/2025 1:26 PM EST) Anatomical Region Laterality Modality Chest Radiographic Emily ging 04/26/2025 1:26 PM EST Narrative 04/26/2025 1:39 PM EST [address] [address] XRay Report Signed Patient: Inderjit Stoner MR #: [id number] : 1960 Acct:[id number] Age/Sex: 64 / M ADM Date: 04/26/25 Loc: HO.ED Attending Dr: Ordering Physician: Bowen Heaton MD Date of Service: 04/26/25 Procedure(s): XR chest 2V Accession Number(s): [id number] cc: Bowen Heaton MD; Sherri Selby MD Reason for Exam: RUL infiltrate vs Mass , sepsis EXAMINATION: XR CHEST CLINICAL INFORMATION: RUL infiltrate vs Mass , sepsis COMPARISON: December 14, 2023 TECHNIQUE: PA and lateral views. FINDINGS: Ill-defined patchy opacity right upper hemithorax extending from the superior right perihilar region. Probable bronchiectasis. No pleural effusion or pneumothorax. Heart silhouette size is normal. Residual contrast in the large intestine. Mild multilevel spondylosis. XR/XR chest 2V IMPRESSION: Airspace disease, right upper lung lobe. Malignancy cannot be excluded. Electronically signed by: Blu Farrell MD 04/26/2025 01:37 PM EST Dictated By: Blu Mijares MD Signed By: <Electronically signed by Blu Moses MD in OV> 04/26/25 1337 DD/ 1326 TD/TT: 04/26/25 1327 Embroidery Operator: Procedure Note Donotuseinterpreter, Image - 04/26/[address] [address] XRay Report Signed Patient: Inderjit Stoner [facility] #: [id number] : 1960cct:[id number] Age/Sex: 64 / MADM Date: 04/26/25 Loc: .ED Attending Dr: Ordering Physician: Bowen Heaton MD Date of Service: 04/26/25 Procedure(s): XR chest 2V Accession Number(s): [id number] cc: Bowen Heaton MD; Sherri Selby MD Reason for Exam: RUL infiltrate vs Mass , sepsis EXAMINATION: XR CHEST CLINICAL INFORMATION: RUL infiltrate vs Mass , sepsis COMPARISON: December 14, 2023 TECHNIQUE: PA and lateral views. FINDINGS: Ill-defined patchy opacity right upper hemithorax extending from the superior right perihilar region. Probable bronchiectasis. No pleural effusion or pneumothorax. Heart silhouette size is normal. Residual contrast in the large intestine. Mild multilevel spondylosis. XR/XR chest 2V IMPRESSION: Airspace disease, right upper lung lobe. Malignancy cannot be excluded. Electronically signed by: Blu Farrell MD 04/26/2025 01:37 PM EST RP Dictated By: Blu Mijares MD Signed By: <Electronically signed by Blu Moses MDin OV> 04/26/25 1337 DD/ 1326 TD/TT: 04/26/25 1327 Embroidery Operator: [facility] External Provider IMG XR PROCEDURES Final Result * CTA Head Neck w/ and w/o Contrast (04/26/2025 12:20 PM EST) Anatomical Region Laterality Modality Head, Neck Computed Tomogra phy 04/26/2025 12:2 0 PM EST Narrative 04/26/2025 1:03 PM EST [place] [address] CT Scan Report Signed Patient: Inderjit Stoner MR #: [id number] : 1960 Acct:[id number] Age/Sex: 64 / M ADM Date: 04/26/25 Loc: HO.ED Attending Dr: Ordering Physician: Bowen Heaton MD Date of Service: 04/26/25 Procedure(s): CT angio head neck Accession Number(s): [id number] cc: Bowen Heaton MD; Sherri Selby MD Report Number: [id number]: Total DLP = 1532.00 mGy-cm Reason for Exam: thunderclap headache EXAMINATION: CTA NECK WITH CONTRAST (STROKE) CTA BRAIN WITH CONTRAST (STROKE) CLINICAL INFORMATION: Thunderclap headache. COMPARISON: May 31, 2024. TECHNIQUE: CTA of the head and neck was performed in the axial plane from the mediastinum to the skull vertex using 70 mL Omnipaque 350 intravenous contrast. Additional reformatted multiplanar images including maximum intensity projection MIP images are generated on the CT workstation. This CT examination was performed using dose optimization techniques as appropriate, variously including the following: *Automated exposure control *Adjustment of mA and/or kV according to patient size (this includes techniques or standardized protocols for targeted exams where dose is matched to indication/reason for exam; i.e. extremities or head) *Use of iterative reconstruction technique DLP: 1532 mGy-cm FINDINGS: The degree of stenosis determined by criteria similar to NASCET. Brain: No acute intracranial hemorrhage, mass effect, midline shift, hydrocephalus or herniation. Salas-white matter differentiation is normal. Posterior cranial fossa contents demonstrated no acute hemorrhage or mass effect. Normal position of the cerebellar tonsils. Decreased AP diameter of the cranium. Calcified plaques in the cavernous supracavernous segments of the ICAs. Small retention cyst, right maxillary sinus. No air-fluid levels in the paranasal sinuses. Pneumatized anterior clinoid processes, bilaterally. Pneumatized dorsum sella. Pneumatized right petrous apex. Tympanic cavities and mastoid cells are aerated.. Chest CTA: Calcified plaque aortic arch. No aneurysm or dissection in the included aortic arch. Calcified plaque in the origin of the left subclavian artery. Neck CTA: Right CCA: Normal patency. No focal stenosis. No intimal flap. Small mixed plaque. Right ICA: Irregular shaped mixed plaque representing less than 40% stenosis. No intimal flap. Normal patency. Left CCA: Normal patency. No focal stenosis. No intimal flap. Left ICA: Irregular mixed plaque in the proximal segment representing less than 50% stenosis. No intimal flap. Normal patency. V1/V2 segments: Normal patency. No focal stenosis. No intimal flap. Codominant. Both origin from the subclavian arteries. Brain CTA: Anterior cerebral circulation: ICAs: Calcified plaques cavernous and supracavernous segments. Normal patency. No focal stenosis. No abrupt cut off. No gross vascular irregularity. Normal ICA terminus. MCA's: Normal patency. No focal stenosis. No abrupt cut off. Bifurcation/trifurcation demonstrated no vascular abnormality. ACAs: Normal patency. No focal stenosis. No abrupt cut off. Anterior, extending artery is patent without gross irregularity. Ophthalmic arteries are patent without gross abnormality at the origin. Posterior communicating arteries are small without gross vascular abnormality. Robust right posterior communicating artery. Posterior cerebral circulation: V3/V4 segments: Normal patency. No focal stenosis. No intimal flap. Posterior inferior cerebellar arteries are patent without gross vascular irregularity at the origin. Basilar artery is patent without focal stenosis or intimal flap. Normal basilar artery tip abnormality. Superior cerebellar arteries are patent without gross vascular irregularity. cold storage superintendent: Normal patency. No focal stenosis. No abrupt cut off. Ancillary findings: No main cerebral venous sinus thrombosis. Irregular shaped peribronchial septal thickening with attenuation abnormalities and patchy groundglass involving the right upper lung lobe extending from the superior aspect of the right perihilar region. Mild cervical spondylosis. CT/CT angio head neck IMPRESSION: No acute intracranial hemorrhage or acute brain abnormality by CT. No main cerebral artery occlusion or embolus. Irregular shaped mixed plaques both ICAs representing less than 50% stenosis. No dissection. No gross aneurysm, cerebral arteries. Acute airspace disease, right upper lung lobe. Superimposed neoplasm cannot be excluded. This critical test result is communicated via text tiger connect to: emergency physician Dr. Bowen Yoo on April 26, 2025 at 12:59 PM Electronically signed by: Blu Farrell MD 04/26/2025 01:01 PM [facility] Dictated By: Blu Mijares MD Signed By: <Electronically signed by Blu Moses MD in OV> 04/26/25 1301 DD/ 1220 TD/TT: 04/26/25 1236 Embroidery Operator: Procedure Note Donotuseinterpreter, Image - 04/26/[address] [address] [address] Scan Report Signed Patient: Inderjit Stoner [facility] #: [id number] : 1Acct:[id number] Age/Sex: 64 / MADM Date: 04/26/25 Loc: HO.ED Attending Dr: Ordering Physician: Bowen Heaton MD Date of Service: 04/26/25 Procedure(s): CT angio head neck Accession Number(s): [id number] cc: Bowen Heaton MD; Sherri Selby MD Report Number: [id number]: Total DLP = 1532.00 mGy-cm Reason for Exam: thunderclap headache EXAMINATION: CTA NECK WITH CONTRAST (STROKE) CTA BRAIN WITH CONTRAST (STROKE) CLINICAL INFORMATION: Thunderclap headache. COMPARISON: May 31, 2024. TECHNIQUE: CTA of the head and neck was performed in the axial plane from the mediastinum to the skull vertex using 70 mL Omnipaque 350 intravenous contrast. Additional reformatted multiplanar images including maximum intensity projection MIP images are generated on the CT workstation. This CT examination was performed using dose optimization techniques as appropriate, variously including the following: *Automated exposure control *Adjustment of mA and/or kV according to patient size (this includes techniques or standardized protocols for targeted exams where dose is matched to indication/reason for exam; i.e. extremities or head) *Use of iterative reconstruction technique DLP: 1532 mGy-cm FINDINGS: The degree of stenosis determined by criteria similar to NASCET. Brain: No acute intracranial hemorrhage, mass effect, midline shift, hydrocephalus or herniation. Salas-white matter differentiation is normal. Posterior cranial fossa contents demonstrated no acute hemorrhage or mass effect. Normal position of the cerebellar tonsils. Decreased AP diameter of the cranium. Calcified plaques in the cavernous supracavernous segments of the ICAs. Small retention cyst, right maxillary sinus. No air-fluid levels in the paranasal sinuses. Pneumatized anterior clinoid processes, bilaterally. Pneumatized dorsum sella. Pneumatized right petrous apex. Tympanic cavities and mastoid cells are aerated.. Chest CTA: Calcified plaque aortic arch. No aneurysm or dissection in the included aortic arch. Calcified plaque in the origin of the left subclavian artery. Neck CTA: Right CCA: Normal patency. No focal stenosis. No intimal flap. Small mixed plaque. Right ICA: Irregular shaped mixed plaque representing less than 40% stenosis. No intimal flap. Normal patency. Left CCA: Normal patency. No focal stenosis. No intimal flap. Left ICA: Irregular mixed plaque in the proximal segment representing less than 50% stenosis. No intimal flap. Normal patency. V1/V2 segments: Normal patency. No focal stenosis. No intimal flap. Codominant. Both origin from the subclavian arteries. Brain CTA: Anterior cerebral circulation: ICAs: Calcified plaques cavernous and supracavernous segments. Normal patency. No focal stenosis. No abrupt cut off. No gross vascular irregularity. Normal ICA terminus. MCA's: Normal patency. No focal stenosis. No abrupt cut off. Bifurcation/trifurcation demonstrated no vascular abnormality. ACAs: Normal patency. No focal stenosis. No abrupt cut off. Anterior, extending artery is patent without gross irregularity. Ophthalmic arteries are patent without gross abnormality at the origin. Posterior communicating arteries are small without gross vascular abnormality. Robust right posterior communicating artery. Posterior cerebral circulation: V3/V4 segments: Normal patency. No focal stenosis. No intimal flap. Posterior inferior cerebellar arteries are patent without gross vascular irregularity at the origin. Basilar artery is patent without focal stenosis or intimal flap. Normal basilar artery tip abnormality. Superior cerebellar arteries are patent without gross vascular irregularity. cold storage superintendent: Normal patency. No focal stenosis. No abrupt cut off. Ancillary findings: No main cerebral venous sinus thrombosis. Irregular shaped peribronchial septal thickening with attenuation abnormalities and patchy groundglass involving the right upper lung lobe extending from the superior aspect of the right perihilar region. Mild cervical spondylosis. CT/CT angio head neck IMPRESSION: No acute intracranial hemorrhage or acute brain abnormality by CT. No main cerebral artery occlusion or embolus. Irregular shaped mixed plaques both ICAs representing less than 50% stenosis. No dissection. No gross aneurysm, cerebral arteries. Acute airspace disease, right upper lung lobe. Superimposed neoplasm cannot be excluded. This critical test result is communicated via text tiger connect to: emergency physician Dr. Bowen Yoo on April 26, 2025 at 12:59 PM Electronically signed by: Blu Farrell MD 04/26/2025 01:01 PM [facility] Dictated By: Blu Mijares MD Signed By: <Electronically signed by Blu Moses MDin OV> 04/26/25 1301 DD/ 1220 TD/TT: 04/26/25 1236 Embroidery Operator: [facility] External Provider IMG CT PROCEDURES Final Result * CT Abdomen Pelvis w/o Contrast (04/26/2025 12:14 PM EST) Anatomical Region Laterality Modality Body, Pelvis, Abdomen Computed T omography 04/26/2025 12:1 4 PM EST Narrative 04/26/2025 1:20 PM EST [address] [address] [address] Scan Report Signed Patient: Inderjit Stoner MR #: [id number] : 1960 Acct:[id number] Age/Sex: 64 / M ADM Date: 04/26/25 Loc: HO.ED Attending Dr: Ordering Physician: Bowen Heaton MD Date of Service: 04/26/25 Procedure(s): CT abdomen pelvis wo IV con Accession Number(s): [id number] cc: Bowen Heaton MD; Sherri Selby MD Report Number: [id number]: Total DLP = 819.00 mGy-cm Reason for Exam: mid lower abd pain, tender suprapubic EXAMINATION: CT ABDOMEN AND PELVIS WITHOUT CONTRAST CLINICAL INFORMATION: Suprapubic tenderness, mid to lower abdominal pain. 64-year-old male. COMPARISON: 09/29/2023. TECHNIQUE: Multidetector volumetric imaging was performed from the superior aspect of the liver through the pubic symphysis. Sagittal and coronal reformatted images were obtained on the technologist's workstation. This CT examination was performed using dose optimization techniques as appropriate, variously including the following: *Automated exposure control *Adjustment of mA and/or kV according to patient size (this includes techniques or standardized protocols for targeted exams where dose is matched to indication/reason for exam; i.e. extremities or head) *Use of iterative reconstruction technique FINDINGS: Study is extremely limited, as there is extensive streak artifact from dense barium residing in the small bowel and colon from earlier barium contrast upper GI examination. Study is also limited due to lack of IV contrast. This severely limits the sensitivity of the study. LUNG BASES: Refer to the dedicated CT chest performed concurrently. LIVER, GALLBLADDER, AND BILIARY TREE: The unenhanced liver is normal in size, shape, and attenuation. Limited evaluation of the inferior right lobe. No focal hepatic lesion or biliary ductal dilatation is present. The gallbladder is unremarkable with no evidence of radiopaque gallstones, gallbladder wall thickening, or obvious pericholecystic inflammatory changes. PANCREAS: Partially obscured by streak artifact, most notably the head and uncinate process. Grossly normal. SPLEEN: Normal. ADRENAL GLANDS: Normal. KIDNEYS AND URETERS: The right kidney is partially obscured by streak artifact. The left kidney likely is mildly obscured by streak artifact. Grossly the kidneys appear normal. No definite hydronephrosis. Ureters are poorly seen proximally. BLADDER: Normal in appearance. GASTROINTESTINAL TRACT: The imaged small bowel and large bowel that can be evaluated appear normal. The ascending colon, small bowel in the right abdomen, and descending colon are essentially near completely obscured by streak artifact from dense contrast. No gross GI abnormality is appreciated. The appendix is normal. ABDOMINAL WALL: No significant hernia is appreciated. LYMPH NODES: Within the confines of streak artifact, no gross abnormal lymphadenopathy is visualized. VASCULAR: The mid aorta is largely obscured. There is mild atheromatous calcification. There is no aneurysm. PELVIC VISCERA: The prostate and seminal vesicles are unremarkable. OSSEOUS STRUCTURES: No suspicious lytic or blastic bone lesion evident. No acute findings. CT/CT abdomen pelvis wo IV con IMPRESSION: 1. Very limited exam secondary to streak artifact from dense barium contrast in the small bowel and colon as discussed above. Within these confines, no acute findings in the abdomen or pelvis. Electronically signed by: Osmin Lainez MD 04/26/2025 01:17 PM [facility] Dictated By: Osmin Lainez MD Signed By: <Electronically signed by Osmin Lainez MD in OV> 04/26/25 1317 DD/ 1214 TD/TT: 04/26/25 1234 Embroidery Operator: Procedure Note Donotuseinterpreter, Image - 04/26/[address] [address] [address] Scan Report Signed Patient: Inderjit Stoner [facility] #: [id number] : 1Acct:[id number] Age/Sex: 64 / MADM Date: 04/26/25 Loc: HO.ED Attending Dr: Ordering Physician: Bowen Heaton MD Date of Service: 04/26/25 Procedure(s): CT abdomen pelvis wo IV con Accession Number(s): [id number] cc: Bowen Heaton MD; Sherri Selby MD Report Number: [id number]: Total DLP = 819.00 mGy-cm Reason for Exam: mid lower abd pain, tender suprapubic EXAMINATION: CT ABDOMEN AND PELVIS WITHOUT CONTRAST CLINICAL INFORMATION: Suprapubic tenderness, mid to lower abdominal pain. 64-year-old male. COMPARISON: 09/29/2023. TECHNIQUE: Multidetector volumetric imaging was performed from the superior aspect of the liver through the pubic symphysis. Sagittal and coronal reformatted images were obtained on the technologist's workstation. This CT examination was performed using dose optimization techniques as appropriate, variously including the following: *Automated exposure control *Adjustment of mA and/or kV according to patient size (this includes techniques or standardized protocols for targeted exams where dose is matched to indication/reason for exam; i.e. extremities or head) *Use of iterative reconstruction technique FINDINGS: Study is extremely limited, as there is extensive streak artifact from dense barium residing in the small bowel and colon from earlier barium contrast upper GI examination. Study is also limited due to lack of IV contrast. This severely limits the sensitivity of the study. LUNG BASES: Refer to the dedicated CT chest performed concurrently. LIVER, GALLBLADDER, AND BILIARY TREE: The unenhanced liver is normal in size, shape, and attenuation. Limited evaluation of the inferior right lobe. No focal hepatic lesion or biliary ductal dilatation is present. The gallbladder is unremarkable with no evidence of radiopaque gallstones, gallbladder wall thickening, or obvious pericholecystic inflammatory changes. PANCREAS: Partially obscured by streak artifact, most notably the head and uncinate process. Grossly normal. SPLEEN: Normal. ADRENAL GLANDS: Normal. KIDNEYS AND URETERS: The right kidney is partially obscured by streak artifact. The left kidney likely is mildly obscured by streak artifact. Grossly the kidneys appear normal. No definite hydronephrosis. Ureters are poorly seen proximally. BLADDER: Normal in appearance. GASTROINTESTINAL TRACT: The imaged small bowel and large bowel that can be evaluated appear normal. The ascending colon, small bowel in the right abdomen, and descending colon are essentially near completely obscured by streak artifact from dense contrast. No gross GI abnormality is appreciated. The appendix is normal. ABDOMINAL WALL: No significant hernia is appreciated. LYMPH NODES: Within the confines of streak artifact, no gross abnormal lymphadenopathy is visualized. VASCULAR: The mid aorta is largely obscured. There is mild atheromatous calcification. There is no aneurysm. PELVIC VISCERA: The prostate and seminal vesicles are unremarkable. OSSEOUS STRUCTURES: No suspicious lytic or blastic bone lesion evident. No acute findings. CT/CT abdomen pelvis wo IV con IMPRESSION: 1. Very limited exam secondary to streak artifact from dense barium contrast in the small bowel and colon as discussed above. Within these confines, no acute findings in the abdomen or pelvis. Electronically signed by: Osmin Lainez MD 04/26/2025 01:17 PM EST Dictated By: Osmin Lainez MD Signed By: <Electronically signed by Osmin Lainez MD in OV> 04/26/25 1317 DD/ 1214 TD/TT: 04/26/25 1234 Embroidery Operator: [facility] External Provider IMG CT PROCEDURES Final Result * (ABNORMAL) Urinalysis, Complete, with Reflex to Culture (04/26/2025 9:54 AM EST) Color Urine Yellow [facility] Appearance Urine Clear [facility] PH 7.5 5.0 - 9.0 [facility] Glucose Urine UA Negative Negative mg/dL [facility] Urine Blood Negative Negative [facility] Specific [place] - Urine 1.025 1.005 - 1.025 [facility] Urine Protein 100 (2+)(A) Neg-Trace mg/dL [facility] Urine Ketones Negative Negative mg/dL [facility] Nitrite Urine Negative Negative [facility] Leukocyte Esterase Urine Negative Negative [facility] RBC Urine 0-2 0 - 2 /HPF [facility] Urine WBC 0-5 0 - 5 /HPF [facility] Urine Squamous Epithelial Cell 0-2 0 - 2 /HPF [facility] Urine Bacteria Trace None Seen [facility] Hyaline Casts, Urine 0-2 0 - 2 /LPF [facility] 04/26/2025 9:54 AM EST 04/26/2025 9:57 AM EST Narrative [facility] - 04/26/2025 10:25 AM EST [id number], Clean Catch us Generic External Data Provider LAB URINE ORDERAB LES Final Result [facility] [address] [place] [phone] * SARS-CoV-2 RNA, Influenza A/B, and RSV RNA, Ql NAAT (04/26/2025 9:54 AM EST) Only the most recent of2 resultswithin the time period is included. Influenza A PCR NEGATIVE Negative [facility] Influenza B PCR NEGATIVE Negative [facility] Resp Syncy Virus RNA Qual PCR NEGATIVE Negative [facility] SARS COV2 PCR NEGATIVE Negative [facility] Comment:All test results mus t [...] use by authorized laboratories.Testing performed on the [employer] GeneXpert utilizingreal-time RT-PCR.All SARS CoV2 and positive influenza A/B results arereported to [facility]. 04/26/2025 9:54 AM EST 04/26/2025 9:57 AM EST us Generic External Data Provider LAB MICROBIOLOGY - GENERAL ORDERABLES Final Result [facility] [address] [place] [phone] * (ABNORMAL) CBC auto differential (04/26/2025 9:54 AM EST) Only the most recent of3 resultswithin the time period is included. White Blood Count 8.9 4.8 - 10.8 X10*3/uL [facility] Red Blood Count 4.74 4.60 - 5.80 X10*6/uL [facility] Hemoglobin 12.9(L) 14.0 - 18.0 g/dl [facility] Hematocrit 40.1(L) 42.0 - 52.0 % [facility] Mean Corpuscular Volume 84.6 80.0 - 98.0 fL [facility] Mean Corpuscular Hemoglobin 27.2 27.0 - 33.0 pg [facility] Mean Corpuscular HGB Conc 32.2 31.0 - 36.0 g/dl [facility] Red Cell Distribution Width 13.1 11.0 - 16.0 % [facility] Platelet Count 386 160 - 400 X10*3/uL [facility] Mean Platelet Volume 8.6(L) 9.4 - 12.4 fL [facility] Neutrophils Percent Auto 77.8(H) 45 - 73 % [facility] Imm Gran Pct Auto 0.7(H) 0.0 - 0.4 % [facility] Lymphocytes Percent Auto 13.3(L) 20 - 40 % [facility] Monocytes Percent Auto 7.5 2 - 11 % [facility] Eosinophils Percent Auto 0.4 0 - 4 % [facility] Basophils Percent Auto 0.3 0 - 2 % [facility] NRBC Pct Auto 0.0 0.0 - 0.2 /100WBC [facility] Neutrophils Absolute Auto 6.9 2.0 - 8.3 x10*3/uL [facility] Imm Gran Abs Auto 0.06(H) 0.00 - 0.03 X10*3/uL [facility] Lymphocytes Absolute Auto 1.2 1.2 - 4.9 X10*3/uL [facility] Monocytes Absolute Auto 0.7 0.1 - 1.2 X10*3/uL [facility] Eosinophils Absolute Auto 0.0 0.0 - 0.4 X10*3/uL [facility] Basophils Absolute Auto 0.0 0.0 - 0.2 X10*3/uL [facility] NRBC Abs Auto 0.000 0.0 - 0.012 X10*3/uL [facility] 04/26/2025 9:54 AM EST 04/26/2025 9:57 AM EST us Generic External Data Provider LAB BLOOD ORDERAB LES Final Result Performing Organization Address [facility] Co de Phone Number [facility] [address] [place] [phone] * Magnesium (04/26/2025 9:54 AM EST) Magnesium 2.2 1.6 - 2.6 mg/dL [facility] 04/26/2025 9:54 AM EST 04/26/2025 9:57 AM EST Generic External Data Provider LAB BLOOD ORDERAB LES Final Result Performing Organization Address City/[facility] Co de Phone Number [facility] [address] [place] [phone] * Lipase (04/26/2025 9:54 AM EST) Lipase 17 8 - 78 U/L [facility] 04/26/2025 9:54 AM EST 04/26/2025 9:57 AM EST us Generic External Data Provider LAB BLOOD ORDERAB LES Final Result Performing Organization Address City/[facility] Co de Phone Number [facility] [address] [place] [phone] * (ABNORMAL) Comprehensive Metabolic Panel (04/26/2025 9:54 AM EST) Only the most recent of2 resultswithin the time period is included. Sodium 139 135 - 145 mmol/L [facility] Potassium 4.4 3.3 - 5.1 mmol/L [facility] Chloride 103 96 - 108 mmol/L [facility] Carbon Dioxide 29 22 - 29 mmol/L [facility] Anion Gap 11(L) 12 - 20 [facility] Urea Nitrogen (BUN) 14 9 - 16 mg/dL [facility] Creatinine, Serum 0.95 0.5 - 1.4 mg/dL [facility] Creatinine Clr Calc Pharmacy 81.1 [facility] Comment:eGFR (calculated fro m the MDRD study equation) and eCrCl(calculated from the Cockcroft-Gault equation) are based ondifferent parameters and may not yield comparable results.If eCrCl result is absurd, please check patient'sheight/weight. Estimated Glomerular Filt Rate >60 [facility] Comment:Chronic Kidney Disea se: Estimated GFR < 60 mL/min/1.06r7Cnarpf Kidney Disease: Estimated GFR < 15 mL/min/1.73m2 Glucose 114 60 - 115 mg/dL [facility] Calcium 9.9 8.4 - 10.2 mg/dL [facility] Bilirubin, Total 0.5 0.0 - 1.0 mg/dL [facility] Aspartate Amino Transferase 44(H) 5 - 37 U/L [facility] Alanine Aminotransferase 142(H) 0 - 40 U/L [facility] Total Protein 7.9 6.5 - 8.0 g/dL [facility] Albumin Level 4.1 3.5 - 5.0 g/dL [facility] Alkaline Phosphatase 190(H) 39 - 117 U/L [facility] 04/26/2025 9:54 AM EST 04/26/2025 9:57 AM EST us Generic External Data Provider LAB BLOOD ORDERAB LES Final Result [facility] [address] [place] [phone] * FL Esophagus Barium Swallow w/Air (04/26/2025 8:53 AM EST) Anatomical Region Laterality Modality Head, Neck Radiographic Emily ging 04/26/2025 8:53 AM EST Narrative 04/26/2025 9:46 AM EST [address] [address] Fluoroscopy Report Signed Patient: Inderjit Stoner MR #: [id number] : 1960 Acct:[id number] Age/Sex: 64 / M ADM Date: 04/26/25 Loc: HO.XRAY Attending Dr: Sherri Navarro MD Ordering Physician: Sherri Selby MD Date of Service: 04/26/25 Procedure(s): FL barium swallow with air Accession Number(s): [id number] cc: Sherri Selby MD Reason for Exam: pt w reported mass sensation in neck-dysphagia EXAMINATION: XR BARIUM SWALLOW CLINICAL INFORMATION: pt w reported mass sensation in neck-dysphagia COMPARISON: Previous exams most recent July 2022 TECHNIQUE: Barium swallow was performed using thin and thick barium and effervescent granules. Barium tablet was also administered. FINDINGS: The swallowing mechanism is normal. No aspiration, penetration or retention. Esophageal motility is normal. No mass, stricture, hernia or reflux is seen. Barium tablet passed freely into the stomach. Visualized stomach and duodenum are unremarkable. FLUOROSCOPY TIME: 1 minute 34 seconds DOSE AREA PRODUCT: 1014 uGy-m2 (microgray-meter squared) FL/FL barium swallow with air IMPRESSION: Unremarkable examination. Electronically signed by: Tanna Wiseman MD 04/26/2025 09:44 AM EST Dictated By: Tanna Wiseman MD Signed By: <Electronically signed by Tanna Wiseman MD in OV> 04/26/2544 DD/ 0853 TD/TT: 04/26/25906 Embroidery Operator: FRANCISCO Procedure Note Donotuseinterpreter, Image - 04/26/[address] [address] Fluoroscopy Report Signed Patient: Inderjit Stoner AMR #: [id number] : 1960cct:[id number] Age/Sex: 64 / MADM Date: 04/26/25 Loc: HO.XRAY Attending Dr: Sherri Navarro MD Ordering Physician: Sherri Selby MD Date of Service: 04/26/25 Procedure(s): FL barium swallow with air Accession Number(s): [id number] cc: Sherri Selby MD Reason for Exam: pt w reported mass sensation in neck-dysphagia EXAMINATION: XR BARIUM SWALLOW CLINICAL INFORMATION: pt w reported mass sensation in neck-dysphagia COMPARISON: Previous exams most recent July 2022 TECHNIQUE: Barium swallow was performed using thin and thick barium and effervescent granules. Barium tablet was also administered. FINDINGS: The swallowing mechanism is normal. No aspiration, penetration or retention. Esophageal motility is normal. No mass, stricture, hernia or reflux is seen. Barium tablet passed freely into the stomach. Visualized stomach and duodenum are unremarkable. FLUOROSCOPY TIME: 1 minute 34 seconds DOSE AREA PRODUCT: 1014 uGy-m2 (microgray-meter squared) FL/FL barium swallow with air IMPRESSION: Unremarkable examination. Electronically signed by: Tanna Wiseman MD 04/26/2025 09:44 AM EST Dictated By: Tanna Wiseman MD Signed By: <Electronically signed by Tanna Wiseman MD in OV> 04/26/25 0944 DD/ TD/TT: 04/26/25906 Embroidery Operator: FRANCISCO us Sherri Navarro MD IMG FLUOROSCOPY P ROCEDURES Final Result * (ABNORMAL) Levetiracetam (04/23/2025 9:36 AM EST) Levetiracetam 2.5(A) 10.0 - 40.0 mcg/mL [facility] Comment:Brivaracetam (Brivia ct(R), Rikelta(R)) exhibitssignificant cross- reactivity in the Levetiracetam(Keppra(R), Spritam(R)) immunoassay. If Brivaracetamhas been prescribed, order test code [id number] by [facility].THIS TEST WAS PERFORMED AT:[facility] [place] [address]JBLCMSA Laurence WHEAT MD,PHD Blood Venous blood specimen / Unknown 04/23/2025 9:36 AM EST 04/23/2025 10:58 AM EST Anna Nguyen MD LAB BLOOD ORDERABLES Final Re sult Performing Organization Address [facility]/ZIP Co de Phone Number [facility] [address] [place] [phone] * POCT Rapid Influenza B STARR ID NOW (04/20/2025 9:59 AM EST) Influenza B Negative Negative, Indeterminate [facility] QC Media Lot # [id number] [facility] Lot# Expiration Date [facility] Swab 04/20/2025 9:59 AM EST Anna Nguyen MD POINT OF CARE TEST ENTER/EDIT ORDERABLES Final Result Performing Organization Address [facility]/ZIP Co de Phone Number [facility] [address] [place] [phone] * POCT Rapid Influenza A STARR ID NOW (04/20/2025 9:57 AM EST) Influenza A Negative Negative, Indeterminate [facility] QC Media Lot # [id number] [facility] Lot# Expiration Date [facility] Swab 04/20/2025 9:57 AM EST us Anna Nguyen MD POINT OF CARE TEST ENTER/EDIT ORDERABLES Final Result [facility] [address] [place] [phone] * POCT Rapid Covid-19 BinaxNOW (04/20/2025 9:56 AM EST) Rapid COVID Ag Negative QC Media Lot # [id number] Lot# Expiration Date [id number] Swab 04/20/2025 9:56 AM EST us Anna Nguyen MD POINT OF CARE TEST ENTER/EDIT ORDERABLES Final Result * US Head Neck Soft Tissue (03/01/2025 5:35 PM EDT) Anatomical Region Laterality Modality Head, Neck Ultrasound 03/01/2025 5:35 PM EDT Narrative 03/01/2025 5:38 PM EDT [address] [address] Ultrasound Report Signed Patient: Inderjit Stoner MR #: [id number] : 1960 Acct:[id number] Age/Sex: 64 / M ADM Date: 02/28/25 Loc: HO.US Attending Dr: Sherri Navarro MD Ordering Physician: Sherri Selby MD Date of Service: 02/28/25 Procedure(s): US soft tiss head and/or neck Accession Number(s): [id number] cc: Sherri Selby MD Reason for Exam: [...] in OV> 03/01/251736 DD/ 34 TD/TT: 03/01/251734 Embroidery Operator: Procedure Note Donotuseinterpreter, Image - 03/01/[address] [address] Ultrasound Report Signed Patient: Inderjit Stoner AMR #: [id number] : 1960cct:[id number] Age/Sex: 64 / MADM Date: 02/28/25 Loc: HO.US Attending Dr: Sherri Navarro MD Ordering Physician: Sherri Selby MD Date of Service: 02/28/25 Procedure(s): US soft tiss head and/or neck Accession Number(s): [id number] cc: Sherri Selby MD Reason for Exam: [...] in OV> 03/01/251736 DD/ 34 TD/TT: 03/01/251734 Embroidery Operator: us Sherri Navarro MD IMG US PROCEDURES Final Result * Chlamydia/Trichomonas/Neisseria gonorrhoeae, PCR, Urine (02/27/2025 9:09 AM EDT) CT PCR, Urine NOT DETECTED Not Detect. [facility] Comment:A not detected test result does [...] NG PCR, Urine NOT DETECTED Not Detect. [facility] Comment:A not detected test result does [...] MD LAB URINE ORDERAB LES Final Result [facility] [address] [place] [phone] * Syphilis Screen (02/27/2025 9:09 AM EDT) Pathologist [facility] Syphilis Screen Nonreactive Nonreactive [facility] Blood 02/27/2025 9:09 AM EDT 02/27/2025 11:17 AM EDT us Sherri Navarro MD LAB BLOOD ORDERAB LES Final Result Performing Organization Address [facility] Co de Phone Number [facility] [address] [place] [phone] * Vitamin B12 (Cobalamin) and Folate Panel, Serum (02/27/2025 9:09 AM EDT) Vitamin B12 442 200 - 900 pg/mL [facility] Comment:NORMAL 200-900 PG/ML INDETERMINATE 160-199 PG/ML DEFICIENT < 160 PG/ML Folate 13.7 > or = 4.0 ng/mL [facility] Comment:Reference Values:> o r = 4.0 ng/mL< 4.0 ng/mL suggests folate deficiency Methotrexate, aminopterin and folinic acid(leucovorin) are chemotherapeutic agents whose molecularstructures are similar to folate; therefore, the Architectfolate assay cannot be used for patients using these drugs. Blood 02/27/2025 9:09 AM EDT 02/27/2025 11:17 AM EDT us Sherri Navarro MD LAB BLOOD ORDERAB LES Final Result Performing Organization Address [facility] Co de Phone Number [facility] [address] [place] [phone] * TSH with Reflex to Free T4 (02/27/2025 9:09 AM EDT) TSH reflex Free T4 1.09 0.32 - 4.0 uIU/mL [facility] Blood 02/27/2025 9:09 AM EDT 02/27/2025 11:17 AM EDT us Sherri Navarro MD LAB BLOOD ORDERAB LES Final Result Performing Organization Address City/[facility]/ZIP Co de Phone Number [facility] [address] [place] [phone] * Hepatitis C Antibody with Reflex to HCV, RNA, Quantitative, Real-Time PCR (02/27/2025 9:09 AM EDT) Hepatitis C Antibody Nonreactive Nonreactive [facility] Comment:Antibodies to HCV no t detected; does not exclude early acuteHCV infection. Blood Venous blood specimen / Unknown 02/27/2025 9:09 AM EDT 02/27/2025 11:17 AM EDT us Sherri Navarro MD LAB BLOOD ORDERAB LES Final Result Performing Organization Address [facility] de Phone Number [facility] [address] [place] [phone] * Hepatitis B surface antigen, EIA (02/27/2025 9:09 AM EDT) Hepatitis B Surface Ag Negative Negative [facility] Blood Venous blood specimen / Unknown 02/27/2025 9:09 AM EDT 02/27/2025 11:17 AM EDT us Sherri Navarro MD LAB BLOOD ORDERAB LES Final Result Performing Organization Address [facility] de Phone Number [facility] [address] [place] [phone] * Hepatitis B Core Antibody, Total (02/27/2025 9:09 AM EDT) Hepatitis B Core Antibody Nonreactive Nonreactive [facility] Blood Venous blood specimen / Unknown 02/27/2025 9:09 AM EDT 02/27/2025 11:17 AM EDT us Sherri Navarro MD LAB BLOOD ORDERAB LES Final Result Performing Organization Address [facility]/State/ZIP Co de Phone Number [facility] [address] [place] [phone] * HIV-1/2 Antigen and Antibodies, Fourth Generation, with Reflexes (02/27/2025 9:09 AM EDT) HIV AB/AG Nonreactive Nonreactive [facility] Comment:HIV-1 p24 Ag and/or HIV-1/HIV-2 Ab not detected.A test result that is nonreactive does not exclude thepossibility of exposure to or infection with HIV-1 and/orHIV-2. Nonreactive results in this assay for individualswith prior exposure to HIV-1 and/or HIV-2 may be due toantigen and antibody levels that are below the limit ofdetection of this assay.The [employer] HIV Ag/Ab Combo assay result andsupplemental assay results should be interpreted inconjunction with the patient's clinical presentation,history and other laboratory results. If the results areinconsistent with clinical evidence, additional testing issuggested to confirm the result. Blood Venous blood specimen / Unknown 02/27/2025 9:09 AM EDT 02/27/2025 11:17 AM EDT us Sherri Navarro MD LAB BLOOD ORDERAB LES Final Result Performing Organization Address City/[facility]/ZIP Co de Phone Number [facility] [address] [place] [phone] * Hepatitis B Surface Antibody, Qualitative (02/27/2025 9:09 AM EDT) ~Hepatitis B Surface Antibody REACTIVE Nonreactive [facility] Comment:REACTIVE: > 11.99 mI U/mL Blood Venous blood specimen / Unknown 02/27/2025 9:09 AM EDT 02/27/2025 11:17 AM EDT us Sherri Navarro MD LAB BLOOD ORDERAB LES Final Result Performing Organization Address City/[facility]/ZIP Co de Phone Number [facility] [address] [place] [phone] * Hemoglobin A1c (02/27/2025 9:09 AM EDT) Hemoglobin A1c 5.7 <6.0 % [facility] Comment:Hemoglobin A1C Refer ence Range Adults: 4.8 - 6.0 % Non diabetic: < 6.0 % Goal: < 7.0 %Additional Action Suggested: > 8.0 %Note: Hemoglobin A1c results are invalid for patients with abnormal amounts of HbF. Blood transfusions may impact the HbA1c concentration in the patient sample. Estimated Average Glucose 117 mg/dL [facility] Comment:eAG = Estimated ave rage glucose which is %A1C expressed asaverage glucose, using the formula of the Y2K-OjgosusAvhuipp Glucose study (ADAG), Diabetes Care, Vol.31,#8,Dec. 2007 Blood Venous blood specimen / Unknown 02/27/2025 9:09 AM EDT 02/27/2025 11:06 AM EDT us Sherri Navarro MD LAB BLOOD ORDERAB LES Final Result [facility] [address] [place] [phone] * Lipid Panel, Standard (02/27/2025 9:09 AM EDT) Triglycerides 103 <150 mg/dL [facility] Comment:Desirable Triglyceri de: less than 150 mg/dLBorderline High Triglyceride 150-199 mg/dLHigh Triglyceride: 200-499 mg/dLVery High Triglyceride: greater than or equal to 5OO mg/dL Cholesterol 160 <200 mg/dL [facility] Comment:Desirable Cholestero l: less than 200 mg/dLBorderline High Cholesterol: 200-239 mg/dLHigh Cholesterol: greater than 239 mg/dL LDL Cholesterol Calculated 97 <100 mg/dL [facility] Comment:Desirable LDL: less than 100 mg/dLNear Optimal/Above Optimal LDL: 110- 129 mg/dLBorderline High LDL: 130-159 mg/dLHigh LDL: 160-189 mg/dLVery High LDL: greater than or equal to 190 mg/dL HDL Cholesterol 43 >40 mg/dL [facility] Comment:Desirable HDL: great er than 40 mg/dL Note: This HDL assay may give artificially low results in patients with liver disease. Blood Venous blood specimen / Unknown 02/27/2025 9:09 AM EDT 02/27/2025 11:17 AM EDT Sherri Navarro MD LAB BLOOD ORDERAB LES Final Result [facility] [address] [place] [address] [phone] * Occult Blood, Fecal, Immunoassay (10/04/2024 12:00 AM EDT) Fecal Globin By Immunochemistry SEE NOTE 404 Found! [place] [facility] Comment: FECAL GLOBIN BY IMMUNOCHEMISTRY Micro Number: [id number] Test Status: Final Specimen Source: Insure () fobt test card Specimen Quality: Inadequate Fecal Globin: Test not performed. The specimen was received in an collection container. Reference Range: Not Detected 10/04/2024 10/11/2024 4:3 0 AM EDT Narrative [facility] - 10/11/2024 4:36 AM EDT FASTING: UNKNOWN Sherri Navarro MD LAB BODY FLUIDS A ND STOOLS ORDERABLES Final Result Performing Organization Address City/[facility]/ZIP Co de Phone Number [facility] [address], [place] [address] 404 Found! [place] [employer] [address] [place] [address] from Last 3 Months or Most Recently Relevant to Health Maintenance Insurance [facility] ONE CARE < 65 DENTAL - [facility] Care Teams Hydraulic Riveter Relationship Specialty Start Date End Date Sherri Selby MD [address] [place] [address] PCP - General Internal Medicine 02/02/23 Liane Alfred MD [address] [place] [address] Dr Stewart [place], [place] Neurology 12/25/24 [place] Araujo NP [address] [place] [address] Urology 12/25/24 Shefali Delgado MD [address] [place] [address] Hematology and Oncology 12/25/24 [facility] 759 [facility] [address] [phone] (Fax) 12/25/24 [facility] [address] 2nd Floor [address] [facility] [address] 12/25/24
--- OUTSIDE RECORDS SUMMARY | 2025-05-02 15:19 | XMS_ITS | Encounter Summary ---
Author Organization [employer] Address 75 [facility] 7t [place] [address] Care Team Providers Care Qualification Engineer Name Role Phone Funmi Easton MD Primary Care Provider Lorenza Stroud Primary Care Provider Sherri Leyva MD Primary Care Pro vider Liane Alfred MD Unavailable [place] Araujo NP Unavailable Shefali Delgado MD Unavailable [phone] Encounter Details Date Type Department Care Team (Latest Contact Info) Description 12/24/2021 Abstract [facility] CONVERSIONS Dental, Provider, DDS Social History Tobacco [...] Description 05/06/2025 2:00 PM EST Office Visit [facility] MEDICINE 230 [place] [address] Linda Cummings FNP 230 [place], [place] [phone] 05/24/2025 10:00 AM EST Office Visit [facility] OPTOMETRY 267 [place], [place] [address] Mitali Kirby, OD 267 [place] [address] 07/02/2025 9:00 AM EST Office Visit [facility] MEDICINE 230 [place] [address] Sherri Selby MD 230 [place] [address] documented as of this encounter Visit Diagnoses Not on filedocumented in this encounter Care Teams Qualification Engineer Relationship Specialty Start Date End Date Funmi Easton MD PCP - General Family Medicine 03/20/19 04/04/22 Lorenza Hodge FNP PCP - General Family Medicine 04/05/22 02/01/23 hSerri Selby MD 230 [place] [address] PCP - General Internal Medicine 02/02/23 Liane Alfred MD [address] [place] [address] [place] [address] Neurology 12/25/24 [place] Araujo NP [address] [place] [address] Urology 12/25/24 Shefali Delgado MD [address] [place] [address] Hematology and Oncology 12/25/24 [facility] 759 [facility] [address] [phone] (Fax) 12/25/24 [facility] [address] 2[address] Floor [address] [facility] [address] 12/25/24 documented as of this encounter
--- OUTSIDE RECORDS SUMMARY | 2025-05-02 15:19 | XMS_ITS | Encounter Summary ---
Author Organization [employer] Address 75 [facility] 7t [place] [address] Care Team Providers Care Railroad Auditor Name Role Phone Lorenza Hodge IT INFRASTRUCTURE CONSULTANT Primary Care Provider Sherri Leyva MD Primary Care Pro vider Liane Alfred MD Unavailable [place] Araujo NP Unavailable Shefali Delgado MD Unavailable [phone] Reason for Visit * Reason Onset Date Comments triage 06/11/2022 Encounter Details Date Type Department Care Team (Late st Contact Info) Description 06/11/2022 Telephone [facility] MEDICINE [address] [place] [address] [phone] Lorenza Hodge FNP triage Social History Tobacco [...] on pt. Voice mail to call back [facility] nurses at [phone] or if emergent care needed to go [...] Description 05/06/2025 2:00 PM EST Office Visit [facility] MEDICINE [address] [place] [address] Linda Cummings FNP 230 [place] [address] 05/24/2025 10:00 AM EST Office Visit [facility] OPTOMETRY 267 [place] [address] Mitali Kirby OD 267 [place] [address] 07/02/2025 9:00 AM EST Office Visit [facility] MEDICINE 230 [place] [address] Sherri Selby MD 230 [place] [address] documented as of this encounter Visit Diagnoses Not on filedocumented in this encounter Care Teams Railroad Auditor Relationship Specialty Start Date End Date Naveen Lorenza ANISH Ulrich PCP - General Family Medicine 04/05/22 02/01/23 Sherri Selby MD 230 [place] [address] PCP - General Internal Medicine 02/02/23 Liane Alfred MD [address] [place] [address] [place] [address] Neurology 12/25/24 [place] Araujo NP [address] [place] [address] Urology 12/25/24 Shefali Delgado MD [address] [place] [address] Hematology and Oncology 12/25/24 [facility] 759 [facility] [address] [phone] (Fax) 12/25/24 [facility]) [address] [facility] 2nd Floor [address] [facility] [address] 12/25/24 documented as of this encounter
--- OUTSIDE RECORDS SUMMARY | 2025-05-02 15:19 | XMS_ITS | Encounter Summary ---
Author Organization [employer] Address 75 [facility] 7t [place] [address] Care Team Providers Care Toe Puncher Name Role Phone Sherri Selby MD Primary Care Pro vider Liane Alfred MD Unavailable [place] Araujo NP Unavailable Shefali Delgado MD Unavailable [phone] Encounter Details Date Type Department Care Team (Latest Contact Info) Description 02/27/2025 Results Follow-Up [facility] [address] [place] [address] [phone] Sherri Selby MD 230 [place], [place] [phone] CBC auto differential, Chlamydia/Trichomonas/ Neisseria gonorrhoeae, PCR, [...] Description 05/06/2025 2:00 PM EST Office Visit [facility] MEDICINE 230 [place], [place] [phone] Linda Cummings FNP 230 [place], [place] [phone] 05/24/2025 10:00 AM EST Office Visit [facility] OPTOMETRY 267 [place], [place] [phone] Mitali Kirby OD 267 [place], [place] [phone] 07/02/2025 9:00 AM EST Office Visit [facility] MEDICINE 230 [place] [address] Sherri Selby MD 230 [place] [address] documented as of this encounter Visit Diagnoses Not on filedocumented in this encounter Additional Health Concerns Assessment Noted Time PHQ-9 Depression Total Score: 7 08/18/19 9:01 AM EDT documented as of this encounter Care Teams Toe Puncher Relationship Specialty Start Date End Date Sherri Selby MD 230 [place] [address] PCP - General Internal Medicine 02/02/23 Liane Alfred MD [address] [place] [address] Dr Black [address] [place] [address] Neurology 12/25/24 [place] Araujo NP [address] [place] [address] Urology 12/25/24 Shefali Delgado MD [address] [place] [address] Hematology and Oncology 12/25/24 [facility] 759 [facility] [address] [phone] (Fax) 12/25/24 [facility] [address] [facility] [address] 2nd Floor [address] [facility] [address] 12/25/24 documented as of this encounter
--- OUTSIDE RECORDS SUMMARY | 2025-05-02 15:19 | XMS_ITS | Encounter Summary ---
Author Organization [employer] Address 75 [facility] 7t [place] [address] Care Team Providers Care Manager Pricing Name Role Phone Sherri Selby MD Primary Care Pro vider Liane Alfred MD Unavailable [phone] [place] Araujo NP Unavailable Shefali Delgado MD Unavailable [phone] Reason for Visit * Reason Onset Date Comments Results 05/05/2023 Encounter Details Date Type Department Care Team (Late st Contact Info) Description 05/05/2023 Telephone [facility] MEDICINE 230 [place], [place] [phone] Sherri Selby MD 230 [place], [place] [phone] Results Social History Tobacco Use Types Packs/Day [...] results of spine. Please contact pt at [phone] documented in this encounter Plan of Treatment Upcoming Encounters Date Type Department Care Team (Late st Contact Info) Description 05/06/2025 2:00 PM EST Office Visit [facility] MEDICINE [address] [place] [address] Linda Cummings, ANISH 230 [place] [address] 05/24/2025 10:00 AM EST Office Visit [facility] OPTOMETRY [address] [place] [address] Mitali Kirby, OD 267 [place] [address] 07/02/2025 9:00 AM EST Office Visit [facility] MEDICINE [address] [place] [address] Sherri Selby MD 230 [place] [address] documented as of this encounter Visit Diagnoses Not on filedocumented in this encounter Additional Health Concerns Assessment Noted Time PHQ-9 Depression Total Score: 16 08/10/ 023 9:09 AM EDT documented as of this encounter Care Teams Manager Pricing Relationship Specialty Start Date End Date Sherri Selby MD 230 [place] [address] PCP - General Internal Medicine 02/02/23 Liane Alfred MD [address] [place] [address] [place] [address] Neurology 12/25/24 [place] Araujo NP [address] [place] [address] Urology 12/25/24 Shefali Delgado MD [address] [place] [address] Hematology and Oncology 12/25/24 [facility] 759 [facility] [address] [phone] (Fax) 12/25/24 [facility] [address] [facility] [address] 12/25/24 documented as of this encounter
--- OUTSIDE RECORDS SUMMARY | 2025-05-02 15:19 | XMS_ITS | Encounter Summary ---
Author Organization [employer] Address [address] [facility] [address] 7t [place] [address] Care Team Providers Care Skoog Operator Name Role Phone Sherri Selby MD Primary Care Pro vider Liane Alfred MD Unavailable [place] Araujo NP Unavailable Shefali Delgado MD Unavailable [phone] Reason for Visit * Reason Onset Date Comments ER Follow-up 04/26/2025 Encounter Details Date Type Department Care Team (Latest Contact Info) Description 04/26/2025 Results Follow-Up [facility] MED & PEDS [address] [place] [address] Mague Oneil RN POCT Rapid Influenza B STARR ID NOW, POCT Rapid Influenza A STARR ID NOW, POCT Rapid Covid-19 BinaxNOW, Levetiracetam Social History Tobacco Use Types Packs/Day Years [...] encounter Miscellaneous Notes * Telephone Encounter - April Bello RN - 04/29/2025 1:17 PM EST Telephone call to pt who declined healthcare facility administrator. Scheduled HDF appt, pt okay with another provider, details below. Advised him of outstanding labs to complete, ideally this week. Pt verbalized understanding, no further questions. Future Appointments Date Time Provider Department Center 05/06/2025 2:00 PM ANISH Headley MEDICINE [facility] 05/24/2025 10:00 AM Mitali Kirby OD VISION [facility] 07/02/2025 9:00 AM Sherri Navarro MD MEDICINE [facility] * Telephone Encounter - April Bello RN - 04/29/2025 1:07 PM EST ----- Message from Nurse Mague Buck sent at 04/26/2025 2:11 PM EST ----- Good afternoon. Forwarding as an FYI for ER follow up in case [facility] does not call me back. ----- Message ----- From: Anna Nguyen MD Sent: 04/26/2025 12:47 PM EST To: [facility] Nurses Please inform this patient of that his antiseizure medication level was lower then it should be but as long as he is seizure free then no med adjustment is needed. Please also advise to f/u with neurology as scheduled.Thanks ----- Message ----- From: Trey Blackmon MA Sent: 04/20/2025 9:57 AM EST To: Anna Nguyen MD * Telephone Encounter - Mague Oneil RN - 04/26/2025 1:46 PM EST TC to pt with [facility] joint filler. Informed of pt Keppra level. Pt states has been having persistent headaches and nausea and is currently in emergency room at [facility] during time of call. Pt states has not had seizure. Author asked when pt does have seizure, what is precipitating like any headache, or aura. Pt reports that he does have severe headaches prior to having a seizure similar to headache experiencing that prompted pt to go to ER. Author reviewed [facility] Meditech. Pt currently having discharge draft made and no noted repeat Keppra level in ER. TC to ER to speak with nurse to ask if Keppra can be rechecked or anticonvulsants be assessed. After being on hold for 12 minutes [facility] staff at the desk took author contact information and states nurse will call author back. Author gave message of a request to have pt Keppra level rechecked prior to discharge. * Telephone Encounter - Mague Oneil RN - 04/26/2025 1:45 PM EST ----- Message from Anna Nguyen MD sent at 04/26/2025 12:45 PM EST ----- Please inform this patient of that his antiseizure medication level was lower then it should be but as long as he is seizure free then no med adjustment is needed. Please also advise to f/u with neurology as scheduled.Thanks ----- Message ----- From: Trey Blackmon MA Sent: 04/20/2025 9:57 AM EST To: Anna Nguyen MD documented in this encounter Plan of Treatment Upcoming Encounters Date Type Department Care Team (Late st Contact Info) Description 05/06/2025 2:00 PM EST Office Visit [facility] MEDICINE [address] [place] [address] Linda Cummings FNP 230 [place] [address] 05/24/2025 10:00 AM EST Office Visit [facility] OPTOMETRY 267 [place] [address] TarkaMitali, OD 267 [place] [address] 07/02/2025 9:00 AM EST Office Visit [facility] MEDICINE [address] [place] [address] Sherri Selby MD [address] [place] [address] documented as of this encounter Visit Diagnoses Not on filedocumented in this encounter Additional Health Concerns Assessment Noted Time PHQ-9 Depression Total Score: 7 08/18/19 25 9:01 AM EDT documented as of this encounter Care Teams Skoog Operator Relationship Specialty Start Date End Date Sherri Selby MD [address] [place] [address] PCP - General Internal Medicine 02/02/23 Liane Alfred MD [address] [place] [address] [place] [address] Neurology 12/25/24 [place] Araujo NP [address] [place] [address] Urology 12/25/24 Shefali Delgado MD [address] [place] [address] Hematology and Oncology 12/25/24 [facility] 759 [facility] [address] [phone] (Fax) 12/25/24 [facility]) [address] [facility] [address] 2nd Floor [address] [facility] [address] 12/25/24 documented as of this encounter
--- OUTSIDE RECORDS SUMMARY | 2025-05-02 15:19 | XMS_ITS | Encounter Summary ---
Author Organization [employer] Address [address] [facility] [address] 7t [place] [address] Care Team Providers Care Copier Operator Name Role Phone Sherri Selby MD Primary Care Pro vider Liane Alfred MD Unavailable [place] Araujo NP Unavailable Shefali Delgado MD Unavailable [phone] Reason for Visit * Reason Comments Med Refill Encounter Details Date Type Department Care Team (Late st Contact Info) Description 04/30/2025 Refill [facility] MED & PEDS [address] [place], [place] [phone] Mague Parish MD 230 [place] [address] Social History Tobacco Use Types Packs/Day Years [...] Description 05/06/2025 2:00 PM EST Office Visit [facility] MEDICINE [address] [place] [address] Linda Cummings FNP 230 [place] [address] 05/24/2025 10:00 AM EST Office Visit [facility] OPTOMETRY [address] [place] [address] Mitali Kirby, OD 267 [place] [address] 07/02/2025 9:00 AM EST Office Visit [facility] MEDICINE [address] [place] [address] Sherri Selby MD 230 [place] [address] documented as of this encounter Visit Diagnoses Not on filedocumented in this encounter Additional Health Concerns Assessment Noted Time PHQ-9 Depression Total Score: 7 08/18/19 9:01 AM EDT documented as of this encounter Care Teams Copier Operator Relationship Specialty Start Date End Date Sherri Selby MD 230 [place] [address] PCP - General Internal Medicine 02/02/23 Liane Aflred MD [address] [place] [address] Dr Black [address] [place] [address] Neurology 12/25/24 [place] Araujo NP [address] [place] [address] Urology 12/25/24 Shefali Delgado MD [address] [place] [address] Hematology and Oncology 12/25/24 [facility] SLEEP MEDICINE 759 [facility] [address] [phone] (Fax) 12/25/24 [facility]) [address] [facility] 2nd Floor [address] [facility] [address] 12/25/24 documented as of this encounter
--- OUTSIDE RECORDS SUMMARY | 2025-05-02 15:19 | XMS_ITS | Encounter Summary ---
Author Organization [employer] Address 75 [facility] 7t [place] [address] Care Team Providers Care Data Processing Control Clerk Name Role Phone Sherri Selby MD Primary Care Pro vider Liane Alfred MD Unavailable [place] Araujo NP Unavailable Shefali Delgado MD Unavailable [phone] Reason for Visit * Reason Onset Date Comments Results 03/02/2025 And lab reminder Encounter Details Date Type Department Care Team (Late st Contact Info) Description 03/02/2025 Results Follow-Up [facility] MEDICINE 230 [place], [place] [phone] Sherri Selby MD 230 [place], [place] [phone] [place] Head Neck Soft Tissue, [place] Esophagus Barium Swallow w/Air Social History Tobacco Use Types Packs/Day Years [...] Telephone Encounter - Myrtle Schmid MA - 04/29/2025 9:41 AM EST Contacted patient swallow test results given and remind about getting lab done to check his liver. * Telephone Encounter - Myrtle Schmid MA - 04/29/2025 9:40 AM EST ----- Message from Sherri Navarro MD sent at 04/26/2025 9:27 PM EST ----- Please inform pt of normal barium swallow test Thanks ----- Message ----- From: Addison Hammonds Results In Sent: 04/26/2025 9:47 AM EST To: Sherri Navarro MD * Result Encounter Note - Sherri Navarro MD - 04/26/2025 9:27 PM EST Please inform pt of normal barium swallow test Thanks * Result Encounter Note - Sherri Navarro MD - 03/02/2025 4:34 AM EDT Please inform pt of normal neck US Thanks documented in this encounter Plan of Treatment Upcoming Encounters Date Type Department Care Team (Late st Contact Info) Description 05/06/2025 2:00 PM EST Office Visit [facility] MEDICINE 230 [place] [address] Linda Cummings FNP 230 [place] [address] 05/24/2025 10:00 AM EST Office Visit [facility] OPTOMETRY 267 [place] [address] Mitali Kirby OD 267 [place] [address] 07/02/2025 9:00 AM EST Office Visit [facility] MEDICINE [address] [place] [address] Sherri Selby MD 230 [place] [address] documented as of this encounter Visit Diagnoses Not on filedocumented in this encounter Additional Health Concerns Assessment Noted Time PHQ-9 Depression Total Score: 7 08/18/19 25 9:01 AM EDT documented as of this encounter Care Teams Data Processing Control Clerk Relationship Specialty Start Date End Date Sherri Selby MD [address] [place] [address] PCP - General Internal Medicine 02/02/23 Liane Alfred MD [address] [facility] [place] [address] Neurology 12/25/24 [place] Araujo NP [address] [place] [address] Urology 12/25/24 Shefali Delgado MD [address] [place] [address] Hematology and Oncology 12/25/24 [facility] 759 [facility] [address] [phone] (Fax) 12/25/24 [facility]) [address] 2[address] Floor [address] [facility] [address] 12/25/24 documented as of this encounter
[2025-05-02 15:43] LABS: Alanine Aminotransferase 160 U/L (0-40); Albumin Level 4.0 g/dL (3.5-5.0); Alkaline Phosphatase 138 U/L (39-117); Anion Gap 12 (12-20); Aspartate Amino Transferase 37 U/L (5-37); Blood Urea Nitrogen 19 mg/dL (9-16); Calcium 9.3 mg/dL (8.4-10.2); Carbon Dioxide 24 mmol/L (22-29); Chloride 108 mmol/L (96-108); Estimated Glomerular Filt Rate > 60; Potassium 4.1 mmol/L (3.3-5.1); Sodium 140 mmol/L (135-145); Total Protein 7.3 g/dL (6.5-8.0)
== END 2025-05-02 11:38 | disposition home or self-care (01) ==
LOC: HO.HHCL 11:37
PROVIDERS: PCP Student in an Organized Health Care Education/Training Program; Visit Provider Student in an Organized Health Care Education/Training Program
DX: R74.01 Elevation of levels of liver transaminase levels (principal)
CPT/HCPCS: 36415; 80053; 82103; 82390; 82784; 86015; 86038; 86376; 86381